=== PATIENT | male | born 1960 | race Caucasian/White ===

== ENCOUNTER 2024-12-27 16:42 | Inpatient (IN) | payer MEDICARE, OTHER, SELFPAY ==
[2024-12-27 16:40] VITALS: BP 111/66; PULSE 78; RESP 17; TEMP 36.7; O2SAT 96
--- OUTSIDE RECORDS SUMMARY | 2024-12-27 16:50 | XMS RPT_ITS | CCD ---
Author Organization [facility] Informat ion Partnership [facility] [employer] [facility] Care Team Providers Care Real Estate Services Coordinator Name Role Phone KELVIN KOHLER Primary Care Unavailable DAKOTA PERSON Attending UnavailKelvin Ortega Primary Care Provider Kelvin Kohler Unavailable Kelvin Kohler Primary Care Provider Kelvin Kohler Primary Care Provider Kelvin Kohler MD Primary Care Provider Kelvin Kohler MD Unavailable Kelvin Kohler MD Primary Care Provider Kelvin Kohler MD Unavailable Kelvin Kohler MD Unavailable Kelvin Kohler MD Primary Care Provider Kelvin Kohler MD Primary Care Provider Evelyn ELLIOTT, Lee Ann Unavailable Unavailable Jenn Callahan MD Unavailable Florian Whitt MD Unavailable Kelvin Kohler MD Unavailable KELVIN KOHLER Primary Care Unavailable PHYSICIANS, [facility] Consulting EDUAR Bueno Attending AARON Martinez Admitting Unavailable PREETI HARRIS Consulting Unavailable KELVIN KOHLER Primary Care Unavailable MAUREEN PARSONS Attending Unavailable MAUREEN PARSONS Referring Unavailable KELVIN KOHLER Primary Care Unavailable MAUREEN PARSONS Attending Unavailable MAUREEN PARSONS Referring Unavailable Unavailable Primary Care Provider UnavailKELVIN Ortega SOILA Attending Unavailable GRJUVE, KELVIN SOILA Primary Care Unavailable GRJUVE, KELVIN CM Primary Care Unavailable WHITT, FLORIAN NOVA Attending Unavailable KENY RAJPUT Attending Unavailable GRJUVE, KELVIN CM Primary Care Unavailable REY BURKETT Attending Unavailable GRUND, KELVIN SOILA Primary Care Unavailable WHITT, FLORIAN NOVA Attending Unavailable GRJUVE, KELVIN SOILA Primary Care Unavailable GRUND, KELVIN SOILA Primary Care Unavailable GRJUVE, KELVIN CM Attending Unavailable GRUND, KELVIN SOILA Primary Care Unavailable GRUND, KELVIN CM Attending Unavailable GRUND, KELVIN SOILA Primary Care Unavailable WHITT, FLORIAN NOVA Attending Unavailable GRUND, KELVIN SOILA Primary Care Unavailable WHITT, FLORIAN NOVA Attending Unavailable GRUND, KELVIN CM Primary Care Unavailable REY BURKETT Attending Unavailable GRUND, KELIVN SOILA Primary Care Unavailable GRUND, KELVIN CM Primary Care Unavailable GRUND, KELVIN CM Primary Care Unavailable TERRENCE SPEARS Attending Unavailable Kelvin Kohler MD Primary Care Provider KELVIN KOHLER Primary Care Unavailable OBKENY PRITCHARD Primary Care Unavailable YENNIJUVE, KELVIN SOILA Primary Care Unavailable JENN CALLAHAN Attending Unavailab le SIEDOAylin, JENN REED Admitting Unavailab JENN Vega Attending Unavailab le VIK, JENN REED Admitting Unavailab le NAI, KELVIN SOILA Primary Care Unavailable OberKeny landeros DO Primary Care Provider [phone] Stentz PA-C, Je Primary Care Provider Stentz PA-C, Je Primary Care Provider Stentz, Je Primary Care Provider [phone] YOUNG MALDONADO Referring Unavailabl e STENTZ, JE Primary Care Unavailable MONICA MG Referring Unavailable STENTZ, JE Primary Care Unavailable REEVESPRICE W Admitting Unavailable REEVESPRICE W Attending Unavailable OBERHAUSERKENY L Primary Care Unavailable OBERHAUSERKENY L Attending Unavailable OBERHAUSER, KENY L Primary Care Unavailable OBERHAUSER, KENY L Primary Care Unavailable REEVESPRICE W Attending Unavailable OBERHAUSERKENY L Primary Care Unavailable REEVESPRICE W Attending Unavailable OBERHAUSKENY PIEDRA L Primary Care Unavailable REEVESPRICE W Attending Unavailable STENTZ, JE Primary Care Unavailable REEVES, PRICE W Attending Unavailable STENTZ, JE Primary Care Unavailable STENTZ, JE Attending Unavailable STENTZ, JE Primary Care Unavailable MONICA MG Attending Unavailable STENTZ, JE Primary Care Unavailable SANTOS GARZON Attending Unavailable MONICA MG Referring Unavailable STENTZ, JE Primary Care Unavailable STENTZ, JE Primary Care Unavailable ELAINE PADRON Referring Unavailable TERRENCE CASTRO Attending Unavailable TERRENCE CASTRO Admitting Unavailable CHARLY KILGORE Consulting Unavailable CHARLY KILGORE Attending Unavailable STENTZ, JE Primary Care Unavailable STENTZ, JE Primary Care Unavailable NICHOLAS DRIVER Consulting Unavailable CHARLY KILGORE Attending Unavailable CHARLY KILGORE Admitting Unavailable Medications Current Medications Medication Drug Class(es) Dates Sig (Normalized) Sig (Original) amLODIPine 2.5 mg / atorvastatin 10 mg oral tablet (14 sources) Dihydropyridine Calcium Channel Shilpa, HMG-CoA Reductase Inhibitor Start: 05-09-2022 amLODIPine-atorva statin (Caduet) 2.5-10 MG tablet 05/09/2022 Active bethanechol chloride 25 mg oral tablet (20 sources) Cholinergic Muscarinic Agonist Start: 06-06-2022 End: 02-22-2024 take 1 tablet by mouth three times daily bethanechol (URECHOLINE) 25 MG tablet Take 1 (one) tablet (25 mg total) by mouth 3 (three) times a day . 90 tablet 11 02/22/2023 Active bethanechol chlo ride (URECHOLINE ORAL) Take by mouth . Active bethanechol chlo ride (URECHOLINE ORAL) Take by mouth . 0 Active cephalexin 500 mg oral capsule (6 sources) Cephalosporin Antibacterial Start: 05-23-2023 End: 05-28-2023 take 1 capsule by mouth twice daily cephALEXin (KEFLEX) 500 MG capsule Take 1 (one) capsule (500 mg total) by mouth 2 (two) times a day for 5 days . 10 capsule 0 05/23/2023 05/28/2023 Active Start: 02-25-2023 End: 03-02-2023 take 1 capsule by mouth twice daily cephALEXin (KEFLEX) 500 MG capsule Take 1 (one) capsule (500 mg total) by mouth 2 (two) times a day for 5 days . 10 capsule 0 02/25/2023 03/02/2023 Active Start: 10-13-2022 End: 10-20-2022 take 1 capsule by mouth twice daily cephALEXin (KEFLEX) 500 MG capsule Take 1 (one) capsule (500 mg total) by mouth 2 (two) times a day for 7 days . 14 capsule 0 10/13/2022 10/20/2022 Active Start: 09-13-2022 End: 09-20-2022 take 1 capsule by mouth three times daily cephALEXin (KEFLEX) 500 MG capsule Take 1 (one) capsule (500 mg total) by mouth 3 (three) times a day for 7 days . 21 capsule 0 09/13/2022 09/20/2022 ciprofloxacin 500 mg oral tablet (12 sources) Quinolone Antimicrobial Start: 05-05-2024 End: 05-08-2024 take 0.5 tablet by mouth twice daily ciprofloxacin (Cipro) 500 mg tablet Indications: Benign prostatic hyperplasia with urinary retention Take 0.5 tablets (250 mg) by mouth 2 times a day for 3 days. 3 tablet 05/05/2024 05/08/2024 Active Start: 03-04-2024 End: 03-07-2024 take 1 tablet by mouth twice daily ciprofloxacin (Cipro) 250 mg tablet Indications: Ureteral stricture Take 1 tablet (250 mg) by mouth 2 times a day for 3 days. 6 tablet 03/04/2024 03/07/2024 Active Start: 11-28-2023 End: 12-01-2023 take 1 tablet by mouth twice daily ciprofloxacin (Cipro) 250 mg tablet Indications: History of bladder stone Take 1 tablet (250 mg) by mouth 2 times a day for 3 days. 6 tablet 11/28/2023 12/01/2023 Active Start: 07-24-2023 End: 07-27-2023 take 1 tablet by mouth twice daily ciprofloxacin (Cipro) 250 mg tablet Indications: Urinary frequency Take 1 tablet (250 mg) by mouth 2 times a day for 3 days. 6 tablet 0 07/24/2023 07/27/2023 Active Start: 10-25-2022 End: 10-28-2022 take 1 tablet by mouth twice daily ciprofloxacin HCl (CIPRO) 500 MG tablet Indications: Urinary tract infection without hematuria, site unspecified Take 1 (one) tablet (500 mg total) by mouth 2 (two) times a day for 3 days . 6 tablet 0 10/25/2022 10/28/2022 Active Start: 04-20-2022 End: 04-23-2022 take 1 tablet by mouth twice daily ciprofloxacin HCl (CIPRO) 500 MG tablet Take 1 (one) tablet (500 mg total) by mouth 2 (two) times a day for 3 days . 6 tablet 0 04/20/2022 04/23/2022 Active Start: 04-11-2022 End: 04-12-2022 take 1 tablet by mouth twice daily ciprofloxacin HCl (CIPRO) 500 MG tablet Indications: Elevated PSA Take 1 (one) tablet (500 mg total) by mouth 2 (two) times a day for 1 day . 2 tablet 0 04/11/2022 04/12/2022 cyclobenzaprine hydrochloride 10 mg oral tablet (17 sources) Muscle Relaxant Start: 10-25-2022 take 1 tablet by mouth three times daily as needed for muscle spasms cyclobenzaprine (FLEXERIL) 10 MG tablet Indications: Painful bladder spasm Take 1 (one) tablet (10 mg total) by mouth 3 (three) times a day as needed for muscle spasms . 30 tablet 3 10/25/2022 Active imipramine hydrochloride 10 mg oral tablet (11 sources) Tricyclic Antidepressant Start: 03-28-2023 End: 03-27-2024 take 1 tablet by mouth once daily imipramine (TOFRANIL) 10 MG tablet Indications: Urinary urgency Take 1 (one) tablet (10 mg total) by mouth nightly . 30 tablet 11 03/28/2023 Active lidocaine hydrochloride 0.02 mg/mg topical gel (20 sources) Antiarrhythmic, Amide Local Anesthetic Start: 08-28-2022 End: 08-28-2023 lidocaine (XYLOCAINE) 2 % jelly Apply topically as needed . 30 mL 2 08/28/2022 08/28/2023 Active Multiple Vitamin (Multi-Vitamin) tablet (14 sources) take 1 tablet by mouth once daily Multiple Vitamin (Multi-Vitamin) tablet Take 1 tablet by mouth daily. Active multivitamin per tablet (11 sources) take 1 tablet by mouth once daily multivitamin per tablet Take 1 (one) tablet by mouth daily . Active take 1 tablet by mouth once noah y multivitamin per tablet Take 1 (one) tablet by mouth daily . 0 Active multivitamin tablet (14 sources) take 1 tablet by meera th once daily multivitamin tablet Take 1 tablet by mouth once daily. Active take 1 tablet by mouth once noah y multivitamin tablet Take 1 tablet by mouth once daily. 0 Active naloxone hydrochloride 40 mg/ml nasal spray (4 sources) Opioid Antagonist Start: 12-06-2024 End: 12-08-2024 naloxone (Narcan) 4 MG/0.1ML nasal spray Administer 1 spray (4 mg) into affected nostril(s) Once for 1 dose. May repeat every 2-3 minutes if needed, alternating nostrils, until medical assistance becomes available. 2 each 12/06/2024 12/08/2024 Active Start: 12-02-2024 End: 12-07-2024 2 ml ondansetron 2 mg/ml injection (2 sources) Serotonin-3 Receptor Antagonist Start: 05-05-2024 End: 05-05-2024 4 mg, intravenous, Once as needed, nausea/vomiting, second line, Starting on Sat05/05/24 at 1158, For 1 dose, Recovery (only), When administering via IV Push, administer over 3-5 minutes. oxyCODONE hydrochloride 10 mg oral tablet (20 sources) Opioid Agonist Start: 12-06-2024 End: 12-13-2024 take 1 tablet by mouth every six hours as needed for pain oxyCODONE (Roxicodone) 10 MG immediate release tablet Indications: Spondylolisthesis of lumbar region Take 1 tablet (10 mg) by mouth every 6 hours as needed for severe pain (7-10) for up to 7 days. 28 tablet 12/06/2024 12/13/2024 Active Start: 12-02-2024 End: 12-07-2024 take 1 tablet by mouth every four hours as needed for pain oxyCODONE (Roxicodone) immediate release tablet 5 mg Start: 05-05-2024 take 1 tablet by meera th every four hours as needed 5 mg, oral, Every 4 hours PRN, pain mild (1-3), first line, Starting on Sat05/05/24 at 1158, Recovery (only), When able to take oral medications., If ordered PRN for pain, nurse is permitted to administer this medication for higher pain scores based on patient preference? Yes Start: 10-04-2022 take 1 tablet by meera th every six hours as needed for pain oxyCODONE (ROXICODONE) 5 MG immediate release tablet Indications: Adenocarcinoma of prostate (HCC) Take 1 (one) tablet (5 mg total) by mouth every 6 (six) hours as needed for pain (cancer related pain) . 40 tablet 10/04/2022 Active oxygen (O2) therapy (1 source) Start: 05-05-2024 inhalation, Co ntinuous PRN - O2/gases, other, Starting on Sat05/05/24 at 1158, Recovery (only), Device: Simple Face Mask, Rate in Liters per minute: 6 LPM, Keep O2 Sat Above: 92% potassium citrate 15 meq extended release oral tablet (20 sources) Start: 08-05-2023 End: 08-27-2024 potassium citrate CR (Urocit-K-15) 15 MEQ (1620 MG) ER tablet Take 15 mEq by mouth daily. 08/16/2023 Active take 1 tablet by mouth twice dayan ly potassium citrate (UROCIT-K) 15 mEq TbER Take 1 (one) tablet (15 mEq total) by mouth 2 (two) times a day . Active predniSONE 20 mg oral tablet (3 sources) Start: 06-13-2022 End: 06-18-2022 take 2 tablets by mouth once daily predniSONE (DELTASONE) 20 MG tablet Indications: Rectal or anal pain Take 2 (two) tablets (40 mg total) by mouth daily for 5 days . 10 tablet 0 06/13/2022 06/18/2022 Active Start: 09-14-2018 End: 03-05-2019 predniSONE (DELTASONE) 20 MG tablet Take 3 tabs for 3 days, 2 tabs for 3 days, 1 tab for 3 days. . 18 tablet 0 09/14/2018 03/05/2019 Discontinued (Therapy completed) pregabalin 25 mg oral capsule (1 source) Start: 06-18-2023 End: 07-05-2023 pregabalin (LYRICA) 25 MG capsule Indications: Neuropathic pain of perineum , Penile pain 1 capsule twice daily for 3 days , then 2 capsules twice daily (Days supply per fill: 30) . 120 capsule 1 06/18/2023 07/05/2023 Discontinued (Prescriber Discontinued) promethazine (Phenergan) 6.25 mg in sodium chloride 0.9% 50 mL IV (1 source) Start: 05-05-2024 6.25 mg, intravenous, Administer over 15 Minutes, Once as needed, Nausea/vomiting first line, Starting on Sat05/05/24 at 1158, For 1 dose, Recovery (only) tiZANidine 4 mg oral tablet (4 sources) Central alpha-2 Adrenergic Agonist Start: 12-02-2024 End: 12-16-2024 take 1 tablet by mouth every eight hours as needed tiZANidine (Zanaflex) 4 MG tablet Take 1 tablet (4 mg) by mouth every 8 hours as needed for muscle spasms for up to 10 days. 30 tablet 12/06/2024 12/16/2024 Active traMADol hydrochloride 50 mg oral tablet (20 sources) Opioid Agonist Start: 09-23-2022 traMADoL (ULTR AM) 50 mg tablet 09/23/2022 Active Start: 06-13-2022 End: 07-03-2022 take 1 tablet by mouth every four hours as needed for pain traMADoL (ULTRAM) 50 mg tablet Indications: Rectal or anal pain Take 1 (one) tablet (50 mg total) by mouth every 4 (four) hours as needed for pain (Days supply per fill: 10) . 40 tablet 1 06/13/2022 07/03/2022 Active Start: 04-20-2022 End: 04-23-2022 traMADoL (ULTRAM) 50 mg tabl et Indications: Elevated PSA , Benign prostatic hyperplasia with urinary retention Take 1 (one) tablet (50 mg total) by mouth every 4 (four) hours as needed for pain (Days supply per fill: 3) . 12 tablet 0 04/20/2022 04/23/2022 Active traZODone hydrochloride 50 mg oral tablet (20 sources) Serotonin Reuptake Inhibitor Start: 02-15-2023 End: 02-15-2023 take 0.5 tablet by mouth once daily as needed traZODone (DESYREL) 50 MG tablet Take 0.5 (one-half) tablet (25 mg total) by mouth nightly as needed . 30 tablet 5 02/15/2023 Active Start: 08-20-2022 End: 10-25-2022 take 0.5 tablet by mouth once daily as needed for sleep traZODone (DESYREL) 100 MG tablet Indications: Sleep disorder Take 0.5 (one-half) tablet (50 mg total) by mouth nightly as needed for sleep . 30 tablet 5 08/20/2022 10/25/2022 Discontinued (Ineffective) vibegron (GEMTESA) 75 mg Tab (9 sources) Start: 09-21-2022 End: 10-19-2022 take 1 tablet by mouth once daily vibegron (GEMTESA) 75 mg Tab Indications: Bladder spasms Take 1 (one) tablet (75 mg total) by mouth daily . 28 tablet 0 09/21/2022 10/19/2022 Active zolpidem tartrate 6.25 mg extended release oral tablet (6 sources) gamma-Aminobuty anabel Acid-ergic Agonist Start: 05-01-2023 End: 10-28-2023 take 1 tablet by mouth once daily as needed for sleep zolpidem (AMBIEN CR) 6.25 MG ER tablet Indications: Insomnia, unspecified type Take 1 (one) tablet (6.25 mg total) by mouth nightly as needed for sleep (Days supply per fill: 30) . 30 tablet 5 05/01/2023 10/28/2023 Active Completed/Discontinued Medications Medication Drug Class(es) Dates Sig (Normalized) Sig (Original) acetaminophen 500 mg oral tablet (20 sources) Start: 12-02-2024 End: 12-07-2024 take 1 tablet by mouth every eight hours 1,000 mg, Oral, Every 8 hours, First dose on Sat12/02/24 at 1715, Maximum dose of acetaminophen is 4000 mg from all sources in 24 hours. Start: 12-02-2024 End: 12-02-2024 take 1000 mg by mouth once, then take 4000 mg by mouth every twenty-four hours 1,000 mg, Oral, Once, On Sat12/02/24 at 0900, For 1 dose, Preprocedure, Maximum dose of acetaminophen is 4000 mg from all sources in 24 hours. Do not administer if patient has taken tylenol Start: 05-05-2024 End: 05-05-2024 take 975 mg by mouth once as needed for pain 975 mg, oral, Once, On Sat05/05/24 at 1015, For 1 dose, Preprocedure, Administer with small amount of water preoperatively., If ordered PRN for pain, nurse is permitted to administer this medication for higher pain scores based on patient preference? Yes Start: 04-21-2022 End: 04-23-2022 take 1 tablet by mouth every six hours as needed for pain acetaminophen (TYLENOL) tablet 650 mg take 2 tablets by mo uth every six hours as needed acetaminophen (Tylenol) 325 MG tablet Take 650 mg by mouth every 6 hours as needed. Active acetaminophen 325 mg / HYDROcodone bitartrate 5 mg oral tablet (10 sources) Opioid Agonist Start: 05-05-2024 End: 09-11-2024 take 1 tablet by mouth every six hours for pain HYDROcodone-acetaminophen ([place]) 5-325 mg tablet Indications: Benign prostatic hyperplasia with urinary retention Take 1 tablet by mouth every 6 hours if needed for severe pain (7 - 10). 20 tablet 05/05/2024 09/11/2024 Discontinued (Med List Cleanup) Start: 07-26-2023 End: 02-27-2024 take 1 tablet by mouth every six hours for pain HYDROcodone-acetaminophen ([place]) 5-325 mg tablet Indications: Stricture of male urethra, unspecified stricture type Take 1 tablet by mouth every 6 hours if needed for severe pain (7 - 10). 20 tablet 07/26/2023 02/27/2024 Discontinued (Therapy completed) Start: 04-20-2022 End: 04-20-2022 take 1 tablet by mouth every twenty-four hours as needed 1 tablet, Oral, Once as needed, Pain, Starting on Sat04/20/22 at 1623, For 1 dose, PACU (only) While in PACU when tolerating orals. Use oral route first, if tolerated.d. albuterol 0.833 mg/ml / ipratropium bromide 0.167 mg/ml inhalation solution (2 sources) Anticholinergic, beta2-Adrenergic Agonist Start: 04-21-2022 End: 04-23-2022 take 3 mL by inhalation every four hours as needed ipratropium-albuteroL (DUO-NEB) 0.5-2.5 mg/3 ml nebulizer solution 3 mL Start: 04-20-2022 End: 04-20-2022 take 3 mL by inhalation every six hours as needed for wheezing 3 mL, Inhalation, Every 6 hours PRN (RT), wheezing, shortness of breath, Starting on Sat04/20/22 at 1623, PACU (only) ALPRAZolam 0.25 mg disintegrating oral tablet (2 sources) Benzodiazepine Start: 12-02-2024 End: 12-02-2024 0.25 mg, Oral, PRN, anxiety, Starting on Sat12/02/24 at 0854, For 1 dose, Preprocedure amLODIPine 5 mg oral tablet (20 sources) Dihydropyridine Calcium Channel Shilpa Start: 12-03-2024 End: 12-07-2024 take 2.5 mg by mouth once daily 2.5 mg, Oral, Daily, First dose on Cherie 12/03/24 at 0800, Phase II/On Unit Start: 06-07-2022 End: 02-21-2025 take 1 tablet by mouth once daily amLODIPine (Norvasc) 2.5 MG tablet Take 2.5 mg by mouth daily. 06/07/2023 02/21/2025 Active Start: 04-22-2022 End: 06-07-2022 take 1 tablet by mouth once daily amLODIPine (NORVASC) 5 MG tablet Take 1 (one) tablet (5 mg total) by mouth daily Start: 04/24/22. 30 tablet 0 04/24/2022 06/07/2022 Discontinued (Reorder (Suppress CancelRx Message to Pharmacy)) bisacodyl 10 mg rectal suppository (2 sources) Stimulant Laxative Start: 12-05-2024 End: 12-07-2024 take 10 mg rectal route once daily 10 mg, Rectal, Daily, First dose on 12/05/24 at 1545 calcium chloride 0.0014 meq/ml / potassium chloride 0.004 meq/ml / sodium chloride 0.103 meq/ml / sodium lactate 0.028 meq/ml injectable solution (6 sources) Start: 12-02-2024 End: 12-07-2024 take 50 mL intravenously every hour 50 mL/hr, IntraVENous, Continuous, Starting on Sat12/02/24 at 0900, Preprocedure, Upon admission to sameday - please start iv if patient does not have iv access. Use 500ml NS for patients on dialysis. Start: 05-05-2024 End: 05-06-2024 take 50 mL intravenously every hour 50 mL/hr, intravenous, Continuous, Starting on Sat05/05/24 at 1215, For 1 day, Recovery (only) Start: 04-20-2022 End: 04-20-2022 lactated Ringers infusion ceFAZolin (Ancef) 2,000 mg in sodium chloride 0.9 % 100 mL IVPB (2 sources) Start: 12-02-2024 End: 12-03-2024 take 2000 mg intravenously every eight hours 2,000 mg, IntraVENous, at 200 mL/hr, Administer over 30 Minutes, Every 8 hours, First dose on Sat12/02/24 at 2000, For 2 doses, Phase II/On Unit, Patients /= 120 k mg Mini-Bag Plus bag, Suspected Indication (Select all that apply): Surgical Prophylaxis 1 ml dexamethasone phosphate 4 mg/ml injection (3 sources) Corticosteroid Start: 12-03-2024 End: 12-04-2024 take 4 mg intravenously every eight hours 4 mg, IntraVENous, Every 8 hours, First dose on Sat12/03/24 at 0215, For 2 days Start: 05-05-2024 End: 05-05-2024 10 mg, intravenous, Once, On Sat05/05/24 at 1015, For 1 dose, Preprocedure 2 ml famotidine 10 mg/ml injection (1 source) Histamine-2 Receptor Antagonist Start: 05-05-2024 End: 05-05-2024 20 mg, intravenous, Administer over 2 Minutes, Once, On Sat05/05/24 at 1015, For 1 dose, Preprocedure 4 ml furosemide 10 mg/ml injection (1 source) Loop Diuretic Start: 04-20-2022 End: 04-20-2022 furosemide (LASIX) injection 40 mg gabapentin 300 mg oral capsule (20 sources) Anti-epileptic Agent Start: 11-30-2024 End: 12-07-2024 take 300 mg by mouth three times daily 300 mg, Oral, 3 times daily, First dose on Sat12/02/24 at 1600, Phase II/On Unit Start: 10-02-2024 End: 11-28-2024 take 1 capsule by mouth three times daily gabapentin (Neurontin) 300 mg capsule Take 1 capsule (300 mg) by mouth 3 times a day. 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 90 capsule 07/05/2023 Active Start: 03-05-2019 End: 07-31-2021 gabapentin (NEURONTIN) 100 M G capsule Indications: Foot pain, bilateral 1-3 capsules up to 3 times per day . . 90 capsule 03/05/2019 07/31/2021 Discontinued (Therapy completed) 1 ml hydrALAZINE hydrochloride 20 mg/ml injection (2 sources) Arteriolar Vasodilator Start: 04-20-2022 End: 04-23-2022 take 10 mg intravenously every six hours as needed hydrALAZINE (APRESOLINE) injection 10 mg Start: 04-20-2022 End: 04-20-2022 5 mg, Intravenous, Every 15 min PRN, SBP greater than 160 or DBP greater than 90, Starting on Sat04/20/22 at 1648, For 4 doses, PACU (only) Do not give more than 20 mg total. Hold for HR greater than 100. Administer if labetalol or metoprolol ineffective at maximum dose or not ordered. 1 ml HYDROmorphone hydrochloride 1 mg/ml cartridge (5 sources) Opioid Agonist Start: 12-02-2024 End: 12-02-2024 0.5 mg, IntraVENous, Every 5 min PRN, severe pain (7-10), Starting on Sat12/02/24 at 1348, For 4 doses, Recovery (only), Phase I and Phase II- Initial therapy for severe pain (7-10). Restricted to a 90 minute time frame starting when the patient can verbally state their pain score. If after 2 doses the pain score does not decrease by more than one point, then call the provider. If oral meds are utilized, do not return to initial therapy medications. Start: 05-05-2024 0.5 mg, intrav enous, Every 5 min PRN, pain severe (7-10), first line, Starting on Sat05/05/24 at 1158, Recovery (only), Max total of 4 mg regardless of dose. Start: 05-05-2024 0.5 mg, intrav enous, Every 5 min PRN, pain moderate (4-6), first line, Starting on Sat05/05/24 at 1158, Recovery (only), Max total of 4 mg regardless of dose. Start: 04-20-2022 End: 04-20-2022 HYDROmorphone (DILAUDID) inj ection 0.5 mg ibuprofen 600 mg oral tablet (7 sources) Nonsteroidal Anti-inflammatory Drug End: 02-27-2024 take 1 tablet by mouth every six hours as needed ibuprofen 600 mg tablet Take 1 tablet (600 mg) by mouth every 6 hours if needed for mild pain (1 - 3). 02/27/2024 Discontinued (Therapy completed) End: 06-07-2022 take 1 tablet by mouth every six hours as needed for pain ibuprofen (ADVIL,MOTRIN) 200 MG tablet Take 1 (one) tablet (200 mg total) by mouth every 6 (six) hours as needed for pain . 0 06/07/2022 Discontinued (Prescriber Discontinued) insulin lispro 100 unt/ml injectable solution (1 source) Insulin Analog Start: 04-21-2022 End: 04-21-2022 insulin lispro (AdmeLOG,HumaLOG) injection 0-30 Units 4 ml labetalol hydrochloride 5 mg/ml cartridge (2 sources) beta-Adrener gic Shilpa Start: 04-20-2022 End: 04-23-2022 take 20 mg intravenously every four hours as needed labetaloL (NORMODYNE) injection 20 mg Start: 04-20-2022 End: 04-20-2022 5 mg, Intravenous, Every 5 m in PRN, SBP greater than 160 or DBP greater than 90, Starting on Sat04/20/22 at 1623, PACU (only) Do not give more than 20 mg total. Hold for HR less than 50. 1.5 ml leuprolide acetate 30 mg/ml prefilled syringe (6 sources) Gonadotropin Releasing Hormone Receptor Agonist Start: 03-11-2024 End: 03-11-2024 leuprolide (6-month) (Lupron Depot) injection 45 mg Start: 03-11-2024 End: 03-11-2024 inject 1 dose by intramuscular injection every two hours 45 mg, intramuscular, Once, On Sat03/11/24 at 1530, For 1 dose, Administer as a single injection into the gluteal area, anterior thigh, or deltoid. Give within 2 hours of preparation. Hazardous Drug - Double Nitrile Glove, Gown. Administer as a single intraMUSCULAR injection into the gluteal area, anterior thigh, or deltoid. Injection site should be alternated. Administer within 2 hours of preparation. Start: 08-22-2023 End: 08-22-2023 leuprolide (6-month) (Lupron Depot) injection 45 mg Start: 08-22-2023 End: 08-22-2023 leuprolide (6-month) (Lupron Depot) injection 45 mg Start: 07-31-2022 End: 07-31-2022 leuprolide acetate (6 month) (LUPRON) IM injection 45 mg Start: 07-31-2022 End: 07-31-2022 leuprolide acetate (6 month) (LUPRON) IM injection 45 mg magnesium hydroxide 80 mg/ml oral suspension (2 sources) Start: 12-02-2024 End: 12-07-2024 take 1 dose by mouth every twenty-four hours for constipation 30 mL, Oral, 2 times daily, First dose on Sat12/02/24 at 1600, Phase II/On Unit, 1st line for treatment of constipation - give scheduled if no bowel movement in past 24 hours 5 ml midazolam 1 mg/ml injection (1 source) Benzodiazepine Start: 05-05-2024 End: 05-05-2024 2 mg, intravenous, Once, On Sat05/05/24 at 1015, For 1 dose, Preprocedure mirtazapine 15 mg oral tablet (7 sources) Start: 10-25-2022 End: 03-28-2023 take 1 tablet by mouth once daily mirtazapine (REMERON) 15 MG tablet Indications: Sleep disorder Take 1 (one) tablet (15 mg total) by mouth nightly . 30 tablet 0 10/25/2022 03/28/2023 Discontinued (Patient Discharge) naloxone (NARCAN) injection 0.1 mg (1 source) Start: 04-20-2022 End: 04-23-2022 naloxone (NARCAN) injection 0.1 mg ondansetron ODT (Zofran-ODT) disintegrating tablet 4 mg (2 sources) Start: 12-02-2024 End: 12-07-2024 take 1 tablet by mouth every eight hours as needed for nausea and vomiting ondansetron ODT (Zofran-ODT) disintegrating tablet 4 mg oxybutynin chloride 5 mg oral tablet (20 sources) Cholinergic Muscarinic Antagonist Start: 07-26-2023 End: 07-25-2024 take 1 tablet by mouth twice daily oxybutynin (Ditropan) 5 mg tablet Indications: Stricture of male urethra, unspecified stricture type Take 1 tablet (5 mg) by mouth 2 times a day. 60 tablet 11 07/26/2023 02/27/2024 Discontinued (Therapy completed) Start: 09-19-2022 End: 09-19-2023 take 1 tablet by mouth once daily oxybutynin (DITROPAN-XL) 10 MG 24 hr tablet Indications: Bladder spasms Take 1 (one) tablet (10 mg total) by mouth daily . 30 tablet 11 09/19/2022 03/28/2023 Discontinued (Side effects) phenazopyridine hydrochloride 200 mg oral tablet (7 sources) Start: 05-05-2024 End: 09-11-2024 take 1 tablet by mouth three times daily as needed for muscle spasms phenazopyridine (Pyridium) 200 mg tablet Indications: Benign prostatic hyperplasia with urinary retention Take 1 tablet (200 mg) by mouth 3 times a day as needed for bladder spasms. 30 tablet 05/05/2024 09/11/2024 Discontinued (Med List Cleanup) Start: 05-05-2024 End: 05-05-2024 take 200 mg by mouth once 200 mg, oral, Once, On Sat07/05/23 at 1315, For 1 dose, Recovery & On Unit, May discolor urine (orange). 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 30 tablet 0 07/26/2023 08/05/2023 Discontinued (Med List Cleanup) microencapsulated potassium chloride 10 meq extended release oral tablet (3 sources) Start: 12-02-2024 End: 12-07-2024 15 mEq, Oral, Daily, First dose on Sat12/02/24 at 1600, Phase II/On Unit, Best given with food and plenty of water to minimize gastric irritation. Do not crush or chew. Start: 04-22-2022 End: 04-22-2022 take 1 tablet by mouth every four hours potassium chloride SA (K-DUR,KLOR-CON) CR tablet 20 mEq 5 ml sodium chloride 9 mg/ml injection (7 sources) Start: 12-02-2024 End: 12-07-2024 10 mL, IntraVENous, Every 12 hours scheduled (2 times per day), First dose on Sat12/02/24 at 2100, Phase II/On Unit Start: 12-02-2024 End: 12-07-2024 Start: 12-02-2024 End: 12-07-2024 Start: 04-21-2022 End: 04-23-2022 sodium chloride 0.45% (HALF SALINE) infusion tamsulosin hydrochloride 0.4 mg oral capsule (20 sources) alpha-Adrenergic Shilpa Start: 04-11-2022 End: 08-27-2025 take 0.4 mg by mouth once daily 0.4 mg, Oral, Daily, First dose on Sat12/03/24 at 0800, Phase II/On Unit, Do not crush, chew, or split. 1 ml triamcinolone acetonide 40 mg/ml injection (1 source) Corticosteroid Start: 07-31-2021 End: 07-31-2021 triamcinolone acetonide (KENALOG-40) injection 40 mg Problems Active Problems Problem Classification Problem Date Documented Da te Episodic/Chronic Abdominal pain (1 source) Peripheral neuropathic pain; Translations: [Pelvic and perineal pain] 07-05-2023 Episodic Anal and rectal conditions (1 source) Anorectal pain; Translations: [Other specified diseases of anus and rectum] Episodic Aortic and peripheral arterial embolism or thrombosis (2 sources) Embolism and thrombosis of iliac artery; 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)] Onset: 12-08-2024 Chronic Cancer of prostate (20 sources) Adenocarcinoma of prostate; Translations: [Malignant neoplasm of prostate] Onset: 04-25-2022 Chronic Cardiac dysrhythmias (4 sources) Atrial premature complex ; Translations: [Atrial premature depolarization] Onset: 12-01-2024 12-01-2024 Chronic Essential hypertension (20 sources) Essential hypertension; Translations: [Essential (primary) hypertension] Onset: 08-07-2022 Chronic Hyperplasia of prostate (20 sources) Benign prostatic hypertrophy with outflow obstruction; Translations: [Benign prostatic hyperplasia with lower urinary tract symptoms] Onset: 04-11-2022 Chronic Malignant neoplasm without specification of site (4 sources) Malignant neoplastic disease; Translations: [Malignant (primary) neoplasm, unspecified] 12-02-2024 Chronic Other acquired deformities (5 sources) Spondylolysis; Translations: [Spondylolysis, lumbar region] 10-29-2024 Episodic Other acquired deformities (6 sources) Spondylolysis, lumbar region; Translations: [Spondylolysis, lumbar region] Onset: 10-29-2024 Episodic Other acquired deformities (8 sources) Lumbar spondylolisthesis; Translations: [Spondylolisthesis, lumbar region] Onset: 12-02-2024 12-07-2024 Episodic Other acquired deformities (2 sources) Spondylolisthesis, lumbar region; Translations: [Spondylolisthesis, lumbar region] Onset: 12-02-2024 Episodic Other connective tissue disease (2 sources) Other enthesopathies, not elsewhere classified; Translations: [Other enthesopathies, not elsewhere classified] Onset: 09-14-2018 Episodic Other connective tissue disease (1 source) Lateral epicondylitis of right humerus; Translations: [Lateral epicondylitis, right elbow] Episodic Other connective tissue disease (1 source) Neuropathic pain due to radiation; Translations: [Neuralgia and neuritis, unspecified] 07-05-2023 Episodic Other connective tissue disease (2 sources) Pain in right leg; Translations: [Pain in right leg] Onset: 12-08-2024 Episodic Other connective tissue disease (3 sources) Pain in both feet; Translations: [Foot pain, bilateral] Onset: 03-05-2019 03-05-2019 Other diseases of bladder and urethra (2 sources) Spasm of bladder; Translations: [Other specified disorders of bladder] 09-19-2022 Chronic Other diseases of bladder and urethra (2 sources) Other specified disorders of bladder; Translations: [Other specified disorders of bladder] Onset: 09-21-2022 Chronic Other diseases of bladder and urethra (2 sources) Urethral stricture; Translations: [Unspecified urethral stricture, male, unspecified site] Episodic Other diseases of kidney and ureters (2 sources) Stricture of ureter; Translations: [Crossing vessel and stricture of ureter without hydronephrosis] 03-04-2024 Episodic Other gastrointestinal disorders (1 source) Stool DNA-based colorectal cancer screening positive; Translations: [Other fecal abnormalities] 09-11-2024 Episodic Other gastrointestinal disorders (2 sources) Other fecal abnormalities; Translations: [Other fecal abnormalities] Onset: 09-11-2024 Episodic Other male genital disorders (1 source) Pain in penis; Translations: [Other specified disorders of penis] 07-05-2023 Chronic Other non-epithelial cancer of skin (20 sources) Basal cell carcinoma of face; Translations: [Basal cell carcinoma of skin of other parts of face] Onset: 09-11-2024 09-11-2024 Episodic Peripheral and visceral atherosclerosis (2 sources) Atherosclerosis of aorta; Translations: [Atherosclerosis of aorta (HCC)] Onset: 12-08-2024 Chronic Residual codes; unclassified (2 sources) Sleep disorder; Translations: [Sleep disorder, unspecified] Episodic Residual codes; unclassified (2 sources) Insomnia, unspecified; Translations: [Insomnia, unspecified] Onset: 05-01-2023 Episodic Spondylosis; intervertebral disc disorders; other back problems (2 sources) Degeneration of lumbar intervertebral disc; Translations: [Other intervertebral disc degeneration, 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] 10-15-2024 Chronic Spondylosis; intervertebral disc disorders; other back problems (4 sources) Lumbar radiculopathy; Translations: [Radiculopathy, lumbar region] Onset: 10-15-2024 10-15-2024 Episodic Substance-related disorders (20 sources) Nicotine dependence; Translations: [Nicotine dependence, unspecified, uncomplicated] Onset: 04-19-2022 04-19-2022 Chronic Unclassified (1 source) Patient encounter status; Translations: [Preventive measure] Unclassified (1 source) Other intervertebral disc degeneration, 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; Translations: [Other intervertebral disc degeneration, 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] Onset: 10-15-2024 Unclassified (2 sources) Pressure-induced deep tissue damage of sacral region; Translations: [Pressure-induced deep tissue damage of sacral region] Onset: 12-08-2024 Urinary tract infections (9 sources) Urinary tract infectious disease; Translations: [Urinary tract infection, site not specified] Episodic Past or Other Problems Problem Classification Problem Date Documented Date Episodic/Chronic Acute and unspecified renal failure (20 sources) Acute injury of kidney; Translations: [Acute kidney failure, unspecified] Onset: 04-19-2022 04-19-2022 Episodic Calculus of urinary tract (20 sources) Urinary bladder stone; Translations: [Calculus in bladder] Onset: 08-05-2023 08-05-2023 Episodic Complications of surgical procedures or medical care (8 sources) Stricture of male urethra following procedure; Translations: [Postprocedural urethral stricture, male, unspecified] Onset: 03-06-2024 08-05-2023 Episodic Genitourinary symptoms and ill-defined conditions (20 sources) Retention of urine; Translations: [Retention of urine, unspecified] Onset: 04-11-2022 Episodic Other circulatory disease (1 source) Abnormal breath sounds; Translations: [Abnormal breath sounds] Episodic Other circulatory disease (20 sources) Elevated blood-pressure reading without diagnosis of hypertension; Translations: [Elevated blood-pressure reading, without diagnosis of hypertension] Onset: 04-19-2022 04-19-2022 Episodic Other connective tissue disease (1 source) Tendinitis of hand; Translations: [Tendinitis of thumb] Episodic Other connective tissue disease (20 sources) Pain in both feet; Translations: [Pain in right foot] Onset: 03-05-2019 03-05-2019 Episodic Other connective tissue disease (20 sources) Disease suspected; Translations: [Other symptoms and signs involving the nervous system] Onset: 04-19-2022 04-19-2022 Episodic Other connective tissue disease (14 sources) Suspected respiratory disease; Translations: [Other symptoms and signs involving the nervous system] Onset: 04-19-2022 10-28-2024 Episodic Other diseases of bladder and urethra (20 sources) Male urethral stricture; Translations: [Unspecified urethral stricture, male, unspecified site] Onset: 04-25-2022 04-25-2022 Episodic Other diseases of bladder and urethra (2 sources) Unspecified urethral stricture, male, unspecified site; Translations: [Unspecified urethral stricture, male, unspecified site] Onset: 04-20-2024 Episodic Other diseases of bladder and urethra (2 sources) Other urethral stricture, male, unspecified site; Translations: [Other urethral stricture, male, unspecified site] Onset: 03-06-2024 Episodic Other diseases of kidney and ureters (20 sources) Renal impairment; Translations: [Disorder of kidney and ureter, unspecified] Onset: 04-25-2022 Episodic Other diseases of kidney and ureters (2 sources) Crossing vessel and stricture of ureter without hydronephrosis; Translations: [Crossing vessel and stricture of ureter without hydronephrosis] Onset: 03-04-2024 Episodic Other lower respiratory disease (20 sources) Hypoxia; Translations: [Hypoxemia] Onset: 04-20-2022 Episodic Other screening for suspected conditions (not mental disorders or infectious disease) (20 sources) Patient encounter status; Translations: [Encounter for screening for malignant neoplasm of prostate] Onset: 04-11-2022 Episodic Other skin disorders (1 source) Skin lesion; Translations: [Disorder of the skin and subcutaneous tissue, unspecified] 02-27-2024 Episodic Other skin disorders (2 sources) Disorder of the skin and subcutaneous tissue, unspecified; Translations: [Disorder of the skin and subcutaneous tissue, unspecified] Onset: 02-27-2024 Episodic Residual codes; unclassified (20 sources) Clubbing of nail; Translations: [Clubbing of fingers] Onset: 03-05-2019 03-05-2019 Episodic Residual codes; unclassified (20 sources) Insomnia; Translations: [Insomnia, unspecified] Onset: 05-01-2023 05-01-2023 Episodic Residual codes; unclassified (2 sources) Sleep disorder, unspecified; Translations: [Sleep disorder, unspecified] Onset: 10-25-2022 Episodic Unclassified (17 sources) Onset: 07-24-2023 Resolved: 12-01-2024 07-24-2023 Unclassified (1 source) Other intervertebral disc degeneration, 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; Translations: [Other intervertebral disc degeneration, 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] Onset: 10-15-2024 Results Test Name Value Interpretation Reference Range Facility 30on 12-23-2024 30 Normal [facility] [id number] 12-23-2024 [id number] Normal [facility] [id number] Normal [facility] [id number] Updates placed to [facility] via Careport per TCC request. Await review and response regarding ability to accept. TCC notified. Electronically signed by GAVIN Rocha Normal [facility] BASIC METABOLIC PANELon Anion gap [Moles/Vol] 6 mmol/L Normal 3-13 [facility] Comment on above: Performed By: #### L [id number], [id number] ####Sales Promotion Manager: MICKIE ASHER ([phone])[facility] ([facility])[address] [place] [address] Calcium [Mass/Vol] 8.2 mg/dL Low 8.8-10.0 [facility] Comment on above: Performed By: #### L [id number], [id number] ####Sales Promotion Manager: MICKIE ASHER ([phone])[facility] ([facility])[address] [place] [address] [place] Chloride [Moles/Vol] 110 mmol/L High 98-107 [facility] Comment on above: Performed By: #### L AB15, [id number] ####Sales Promotion Manager: MICKIE ASHER ([phone])[facility] ([facility])[address] [place] [address] [place] CO2 [Moles/Vol] 22 mmol/L Low 23-31 [facility] Comment on above: Performed By: #### L AB15, [id number] ####Sales Promotion Manager: MICKIE ASHER ([phone])[facility] ([facility])[address] [place] [address] Creatinine [Mass/Vol] 0.67 mg/dL Low 0.72-1.25 [facility] Comment on above: Performed By: #### L AB15, [id number] ####Sales Promotion Manager: MICKIE ASHER ([phone])[facility])[address] [place] [address] GLOMERULAR FILTRATION RATE ML/MIN/1.73 SQ M.PREDICTED >90.0 Normal >60.0 [facility] Comment on above: Result Comment: Calc ulation based on the Chronic Kidney Disease Epidemiology Collaboration (CKD-EPI) equation refit without adjustment for race Performed By: #### L AB15, [id number] ####Sales Promotion Manager: MICKIE ASHER ([phone])[facility])[address] [place] [address] Glucose [Mass/Vol] 91 mg/dL Normal 82-115 [facility] Comment on above: Performed By: #### L AB15, [id number] ####Sales Promotion Manager: MICKIE ASHER ([phone])[facility])[address] [place] [address] Potassium [Moles/Vol] 3.5 mmol/L Normal 3.5-5.1 [facility] Comment on above: Result Comment: [facility] potassium values may be up to 0.5 mmol/L lower than serum values. Performed By: #### L AB15, [id number] ####Sales Promotion Manager: MICKIE ASHER ([phone])[facility])[address] [place] [address] Sodium [Moles/Vol] 138 mmol/L Normal 136-145 [facility] Comment on above: Performed By: #### L AB15, [id number] ####Sales Promotion Manager: MICKIE ASHER ([phone])[facility])[address] [place] [address] [place] Urea nitrogen [Mass/Vol] 8 mg/dL Low 9-23 [facility] Comment on above: Performed By: #### L AB15, [id number] ####Sales Promotion Manager: MICKIE ASHER ([phone])[facility])[address] [place] [address] BLOOD TYPE AND SCREEN GELon 12-23-2024 ABO GROUPING A Normal [facility] Comment on above: Performed By: #### L [id number] ####Sales Promotion Manager: MICKIE ASHER ([phone])[facility] ([facility])[address] [place] [address] RH TYPE IN BLOOD Positive Normal [facility] Comment on above: Performed By: #### L [id number] ####Sales Promotion Manager: MICKIE ASHER ([phone])[facility] ([facility])[address] [place] [address] CBC WITH AUTO DIFFERENTIALon 12-23-2024 Basophils (Bld) [#/Vol] 0.1 10*3/uL Normal 0.0-0.2 [facility] Comment on above: Performed By: #### L [id number] ####Sales Promotion Manager: MICKIE ASHER ([phone])[facility] ([facility])[address] [place] [address] Basophils/100 WBC (Bld) 0.7 % Normal 0.0-2.0 [facility] Comment on above: Performed By: #### L [id number] ####Sales Promotion Manager: MICKIE ASHER ([phone])[facility] ([facility])[address] [place] [address] Eosinophils (Bld) [#/Vol] 0.2 10*3/uL Normal 0.0-0.5 [facility] Comment on above: Performed By: #### L [id number] ####Sales Promotion Manager: MICKIE ASHER ([phone])[facility] ([facility])[address] [place] [address] Eosinophils/100 WBC (Bld) 2.4 % Normal 0.0-6.0 [facility] Comment on above: Performed By: #### L [id number] ####Sales Promotion Manager: MICKIE ASHER ([phone])[facility] ([facility])[address] [place] [address] Erythrocyte distribution width (RBC) [Ratio] 15.6 % High 11.5-15.0 [facility] Comment on above: Performed By: #### L [id number] ####Sales Promotion Manager: MICKIE ASHER ([phone])[facility])[address] [place] [address] Hematocrit (Bld) [Volume fraction] 26.4 % Low 40.0-52.0 [facility] Comment on above: Performed By: #### L [id number] ####Sales Promotion Manager: MICKIE ASHER ([phone])[facility])[address] [place] [address] Hemoglobin (Bld) [Mass/Vol] 8.2 g/dL Low 13.0-18.0 [facility] Comment on above: Performed By: #### L [id number] ####Sales Promotion Manager: MICKIE ASHER ([phone])[facility])[address] [place] [address] IMMATURE GRANS % 1.0 % Normal 0.0-2.0 [facility] Comment on above: Performed By: #### L [id number] ####Sales Promotion Manager: MICKIE ASHER ([phone])[facility])[address] [place] [address] IMMATURE GRANS ABSOLUTE 0.1 10*3/uL High <0.1 [facility] Comment on above: Performed By: #### L [id number] ####Sales Promotion Manager: MICKIE ASHER ([phone])[facility])[address] [place] [address] Lymphocytes (Bld) [#/Vol] 1.0 10*3/uL Normal 1.0-4.3 [facility] Comment on above: Performed By: #### L [id number] ####Sales Promotion Manager: MICKIE ASHER ([phone])[facility])[address] [place] [address] Lymphocytes/100 WBC (Bld) 11.8 % Low 15.0-45.0 [facility] Comment on above: Performed By: #### L [id number] ####Sales Promotion Manager: MICKIE ASHER ([phone])[facility])[address] [place] [address] MCH (RBC) [Entitic mass] 29.1 pg Normal 26.0-34.0 [facility] Comment on above: Performed By: #### L [id number] ####Sales Promotion Manager: MICKIE ASHER ([phone])[facility])[address] [place] [address] MCHC 31.1 % Normal 30.5-36.0 [facility] Comment on above: Performed By: #### L [id number] ####Sales Promotion Manager: MICKIE ASHER ([phone])[facility])[address] [place] [address] MCV (RBC) [Entitic vol] 93.6 fL Normal 77.0-99.0 [facility] Comment on above: Performed By: #### L [id number] ####Sales Promotion Manager: MICKIE ASHER ([phone])[facility])[address] [place] [address] Monocytes (Bld) [#/Vol] 1.0 10*3/uL High 0.0-0.9 [facility] Comment on above: Performed By: #### L [id number] ####Sales Promotion Manager: MICKIE ASHER ([phone])[facility])[address] [place] [address] Monocytes/100 WBC (Bld) 11.4 % Normal 5.0-13.0 [facility] Comment on above: Performed By: #### L [id number] ####Sales Promotion Manager: MICKIE ASHER ([phone])[facility])[address] [place] [address] NEUTROPHILS ABSOLUTE 6.4 10*3/uL Normal 1.8-7.5 [facility] Comment on above: Performed By: #### L [id number] ####Sales Promotion Manager: MICKIE ASHER ([phone])[facility])[address] [place] [address] Neutrophils/100 WBC (Bld) 72.7 % Normal 38.0-82.0 [facility] Comment on above: Performed By: #### L [id number] ####Sales Promotion Manager: MICKIE ASHER ([phone])[facility] ([facility])[address] [place] [address] NRBC 0.3 /100 WBCs Normal 0.0-2.0 [facility] Comment on above: Performed By: #### L [id number] ####Sales Promotion Manager: MICKIE ASHER ([phone])[facility] ([facility])[address] [place] [address] Platelet mean volume (Bld) [Entitic vol] 10.4 fL Normal 9.0-12.7 [facility] Comment on above: Performed By: #### L [id number] ####Sales Promotion Manager: MICKIE ASHER ([phone])[facility] ([facility])[address] [place] [address] Platelets (Bld) [#/Vol] 348 10*3/uL Normal 140-440 [facility] Comment on above: Performed By: #### L [id number] ####Sales Promotion Manager: MICKIE ASHER ([phone])[facility] ([facility])[address] [place] [address] RBC (Bld) [#/Vol] 2.82 10*6/uL Low 4.40-5.90 [facility] Comment on above: Performed By: #### L [id number] ####Sales Promotion Manager: MICKIE ASHER ([phone])[facility])[address] [place] [address] WBC (Bld) [#/Vol] 8.9 10*3/uL Normal 3.6-10.7 [facility] Comment on above: Performed By: #### L [id number] ####Sales Promotion Manager: MICKIE ASHER ([phone])[facility])[address] [place] [address] MAGNESIUMon 12-23-2024 Magnesium [Mass/Vol] 2.0 mg/dL Normal 1.6-2.6 [facility] Comment on above: Result Comment: AMANUEL [place] COMMENTS:Higher values can be expected in females during menses. Performed By: #### L [id number], [id number] ####Sales Promotion Manager: MICKIE ASHER ([phone])[facility] ([facility])[address] [place] [address] Progress Noteon 12-23-2024 Progress Note Normal [facility] Progress Note Normal [facility] Progress Note Normal [facility] Progress Note Normal [facility] [id number] 12-22-2024 [id number] Updates placed to [facility] via [facility] per TCC request. Await review and response regarding ability to accept. TCC notified. Electronically signed by GAVIN Rocha Normal [facility] BASIC METABOLIC PANELon Anion gap [Moles/Vol] 6 mmol/L Normal 3-13 [facility] Comment on above: Performed By: #### L [id number] ####Sales Promotion Manager: MICKIE ASHER ([phone])[facility] ([facility])[address] [place] [address] Calcium [Mass/Vol] 7.8 mg/dL Low 8.8-10.0 [facility] Comment on above: Performed By: #### L [id number] ####Sales Promotion Manager: MICKIE ASHER ([phone])[facility] ([facility])[address] [place] [address] Chloride [Moles/Vol] 108 mmol/L High 98-107 [facility] Comment on above: Performed By: #### L [id number] ####Sales Promotion Manager: MICKIE ASHER ([phone])[facility] ([facility])[address] [place] [address] CO2 [Moles/Vol] 23 mmol/L Normal 23-31 [facility] Comment on above: Performed By: #### L [id number] ####Sales Promotion Manager: MICKIE ASHER ([phone])[facility] ([facility])[address] [place] [address] Creatinine [Mass/Vol] 0.69 mg/dL Low 0.72-1.25 [facility] Comment on above: Performed By: #### L [id number] ####Sales Promotion Manager: MICKIE ASHER ([phone])[facility])[address] [place] [address] GLOMERULAR FILTRATION RATE ML/MIN/1.73 SQ M.PREDICTED >90.0 Normal >60.0 [facility] Comment on above: Result Comment: Calc ulation based on the Chronic Kidney Disease Epidemiology Collaboration (CKD-EPI) equation refit without adjustment for race Performed By: #### L [id number] ####Sales Promotion Manager: MICKIE ASHER ([phone])[facility])[address] [place] [address] Glucose [Mass/Vol] 87 mg/dL Normal 82-115 [facility] Comment on above: Performed By: #### L [id number] ####Sales Promotion Manager: MICKIE ASHER ([phone])[address] Potassium [Moles/Vol] 3.6 mmol/L Normal 3.5-5.1 [facility] Comment on above: Result Comment: [facility] potassium values may be up to 0.5 mmol/L lower than serum values. Performed By: #### L AB15 ####Sales Promotion Manager: MICKIE ASHER ([phone])[facility])[address] [place] [address] Sodium [Moles/Vol] 137 mmol/L Normal 136-145 [facility] Comment on above: Performed By: #### L [id number] ####Sales Promotion Manager: MICKIE ASHER ([phone])[facility])[address] [place] [address] Urea nitrogen [Mass/Vol] 11 mg/dL Normal 9-23 [facility] Comment on above: Performed By: #### L [id number] ####Sales Promotion Manager: MICKIE ASHER ([phone])[facility])[address] [place] [address] CBC WITH AUTO DIFFERENTIALon 12-22-2024 Basophils (Bld) [#/Vol] 0.0 10*3/uL Normal 0.0-0.2 [facility] Comment on above: Performed By: #### L [id number] ####Sales Promotion Manager: MICKIE ASHER ([phone])[facility])[address] [place] [address] Basophils/100 WBC (Bld) 0.4 % Normal 0.0-2.0 [facility] Comment on above: Performed By: #### L [id number] ####Sales Promotion Manager: MICKIE ASHER ([phone])[facility])[address] [place] [address] Eosinophils (Bld) [#/Vol] 0.2 10*3/uL Normal 0.0-0.5 [facility] Comment on above: Performed By: #### L [id number] ####Sales Promotion Manager: MICKIE ASHER ([phone])[facility])[address] [place] [address] Eosinophils/100 WBC (Bld) 2.7 % Normal 0.0-6.0 [facility] Comment on above: Performed By: #### L [id number] ####Sales Promotion Manager: MICKIE ASHER ([phone])[address] Erythrocyte distribution width (RBC) [Ratio] 15.7 % High 11.5-15.0 [facility] Comment on above: Performed By: #### L [id number] ####Sales Promotion Manager: MICKIE ASHER ([phone])[facility])[address] [place] [address] Hematocrit (Bld) [Volume fraction] 24.4 % Low 40.0-52.0 [facility] Comment on above: Performed By: #### L [id number] ####Sales Promotion Manager: MICKIE ASHER ([phone])[address] Hemoglobin (Bld) [Mass/Vol] 7.7 g/dL Low 13.0-18.0 [facility] Comment on above: Performed By: #### L [id number] ####Sales Promotion Manager: MICKIE ASHER ([phone])[facility])[address] [place] [address] IMMATURE GRANS % 1.1 % Normal 0.0-2.0 [facility] Comment on above: Performed By: #### L [id number] ####Sales Promotion Manager: MICKIE ASHER ([phone])[facility])[address] [place] [address] IMMATURE GRANS ABSOLUTE 0.1 10*3/uL High <0.1 [facility] Comment on above: Performed By: #### L [id number] ####Sales Promotion Manager: MICKIE ASHER ([phone])[facility])[address] [place] [address] Lymphocytes (Bld) [#/Vol] 1.1 10*3/uL Normal 1.0-4.3 [facility] Comment on above: Performed By: #### L [id number] ####Sales Promotion Manager: MICKIE ASHER ([phone])[facility])[address] [place] [address] Lymphocytes/100 WBC (Bld) 12.4 % Low 15.0-45.0 [facility] Comment on above: Performed By: #### L [id number] ####Sales Promotion Manager: MICKIE ASHER ([phone])[facility])[address] [place] [address] MCH (RBC) [Entitic mass] 29.1 pg Normal 26.0-34.0 [facility] Comment on above: Performed By: #### L [id number] ####Sales Promotion Manager: MICKIE ASHER ([phone])[facility])[address] [place] [address] MCHC 31.6 % Normal 30.5-36.0 [facility] Comment on above: Performed By: #### L [id number] ####Sales Promotion Manager: MICKIE ASHER ([phone])[facility])[address] [place] [address] MCV (RBC) [Entitic vol] 92.1 fL Normal 77.0-99.0 [facility] Comment on above: Performed By: #### L [id number] ####Sales Promotion Manager: MICKIE ASHER ([phone])[facility] ([facility])[address] [place] [address] Monocytes (Bld) [#/Vol] 0.8 10*3/uL Normal 0.0-0.9 [facility] Comment on above: Performed By: #### L [id number] ####Sales Promotion Manager: MICKIE ASHER ([phone])[facility] ([facility])[address] [place] [address] Monocytes/100 WBC (Bld) 9.8 % Normal 5.0-13.0 [facility] Comment on above: Performed By: #### L [id number] ####Sales Promotion Manager: MICKIE ASHER ([phone])[facility] ([facility])[address] [place] [address] NEUTROPHILS ABSOLUTE 6.3 10*3/uL Normal 1.8-7.5 [facility] Comment on above: Performed By: #### L [id number] ####Sales Promotion Manager: MICKIE ASHER ([phone])[facility] ([facility])[address] [place] [address] Neutrophils/100 WBC (Bld) 73.6 % Normal 38.0-82.0 [facility] Comment on above: Performed By: #### L [id number] ####Sales Promotion Manager: MICKIE ASHER ([phone])[facility] ([facility])[address] [place] [address] [place] NRBC 0.5 /100 WBCs Normal 0.0-2.0 [facility] Comment on above: Performed By: #### L [id number] ####Sales Promotion Manager: MICKIE ASHER ([phone])[facility] ([facility])[address] [place] [address] Platelet mean volume (Bld) [Entitic vol] 10.6 fL Normal 9.0-12.7 [facility] Comment on above: Performed By: #### L [id number] ####Sales Promotion Manager: MICKIE ASEHR ([phone])[facility] ([facility])[address] [place] [address] Platelets (Bld) [#/Vol] 261 10*3/uL Normal 140-440 [facility] Comment on above: Performed By: #### L [id number] ####Sales Promotion Manager: MICKIE ASHER ([phone])[facility] ([facility])[address] [place] [address] RBC (Bld) [#/Vol] 2.65 10*6/uL Low 4.40-5.90 [facility] Comment on above: Performed By: #### L [id number] ####Sales Promotion Manager: MICKIE ASHER ([phone])[facility] ([facility])[address] [place] [address] WBC (Bld) [#/Vol] 8.5 10*3/uL Normal 3.6-10.7 [facility] Comment on above: Performed By: #### L [id number] ####Sales Promotion Manager: MICKIE ASHER ([phone])[facility])[address] [place] [address] Progress Noteon 12-22-2024 Progress Note Normal [facility] Progress Note Vancomycin therapy has been discontinued by Terrence Castro on 12/22. Thank you for the consult. Pharmacy signing off for vancomycin dosing. Shanti Soriano PharmD, Date: 12/22/24 Time: 11:56 AM Normal [facility] Progress Note Normal [facility] Progress Note Normal [facility] VANCOMYCIN, AUC TIMED DOSING on 12-22-2024 VANCOMYCIN, AUC 19.0 ug/mL Normal [facility] Comment on above: Result Comment: AMANUEL [place] COMMENTS:Please draw random level with am labs 12/22/24 at least >2 hours after the end of the last vancomycin infusion, or 30-minutes before next infusion. Thank YouToxicity is seen at concentrations >80-100 ug/mLTherapeutic (Peak) range: 20-40Therapeutic (Trough) range: 5-10 Performed By: #### L [id number] ####Sales Promotion Manager: MICKIE ASHER ([phone])[facility] ([facility])[address] [place] [address] [place] 30on 12-21-2024 30 Normal [facility] 30 Normal [facility] [id number] 12-21-2024 [id number] Normal [facility] BASIC METABOLIC PANELon 07 Anion gap [Moles/Vol] 8 mmol/L Normal 3-13 [facility] Comment on above: Performed By: #### L [id number] ####Sales Promotion Manager: MICKIE ASHER ([phone])[facility])[address] [place] [address] Calcium [Mass/Vol] 7.6 mg/dL Low 8.8-10.0 [facility] Comment on above: Performed By: #### L [id number] ####Sales Promotion Manager: MICKIE ASHER ([phone])[facility] ([facility])[address] [place] [address] [place] Chloride [Moles/Vol] 109 mmol/L High 98-107 [facility] Comment on above: Performed By: #### L [id number] ####Sales Promotion Manager: MICKIE ASHER ([phone])[facility])[address] [place] [address] [place] CO2 [Moles/Vol] 22 mmol/L Low 23-31 [facility] Comment on above: Performed By: #### L [id number] ####Sales Promotion Manager: MICKIE ASHER ([phone])[facility])[address] [place] [address] [place] Creatinine [Mass/Vol] 0.70 mg/dL Low 0.72-1.25 [facility] Comment on above: Performed By: #### L [id number] ####Sales Promotion Manager: MICKIE ASHER ([phone])[facility])[address] [place] [address] GLOMERULAR FILTRATION RATE ML/MIN/1.73 SQ M.PREDICTED >90.0 Normal >60.0 [facility] Comment on above: Result Comment: Calc ulation based on the Chronic Kidney Disease Epidemiology Collaboration (CKD-EPI) equation refit without adjustment for race Performed By: #### L [id number] ####Sales Promotion Manager: MICKIE ASHER ([phone])[facility])[address] [place] [address] Glucose [Mass/Vol] 97 mg/dL Normal 82-115 [facility] Comment on above: Performed By: #### L AB15 ####Sales Promotion Manager: MICKIE ASHER ([phone])[facility])[address] [place] [address] Potassium [Moles/Vol] 3.8 mmol/L Normal 3.5-5.1 [facility] Comment on above: Result Comment: [facility] potassium values may be up to 0.5 mmol/L lower than serum values. Performed By: #### L AB15 ####Sales Promotion Manager: MICKIE ASHER ([phone])[facility] ([facility])[address] [place] [address] [place] Sodium [Moles/Vol] 139 mmol/L Normal 136-145 [facility] Comment on above: Performed By: #### L [id number] ####Sales Promotion Manager: MICKIE ASHER ([phone])[address] Urea nitrogen [Mass/Vol] 18 mg/dL Normal 9-23 [facility] Comment on above: Performed By: #### L AB15 ####Sales Promotion Manager: MICKIE ASHER ([phone])[facility])[address] [place] [address] CBC WITH AUTO DIFFERENTIALon 12-21-2024 Basophils (Bld) [#/Vol] 0.0 10*3/uL Normal 0.0-0.2 [facility] Comment on above: Performed By: #### L [id number] ####Sales Promotion Manager: MICKIE ASHER ([phone])[facility])[address] [place] [address] Basophils/100 WBC (Bld) 0.1 % Normal 0.0-2.0 [facility] Comment on above: Performed By: #### L [id number] ####Sales Promotion Manager: MICKIE ASHER ([phone])[facility])[address] [place] [address] Eosinophils (Bld) [#/Vol] 0.2 10*3/uL Normal 0.0-0.5 [facility] Comment on above: Performed By: #### L [id number] ####Sales Promotion Manager: MICKIE ASHER ([phone])[address] Eosinophils/100 WBC (Bld) 2.1 % Normal 0.0-6.0 [facility] Comment on above: Performed By: #### L [id number] ####Sales Promotion Manager: MICKIE ASHER ([phone])[facility])[address] [place] [address] Erythrocyte distribution width (RBC) [Ratio] 15.6 % High 11.5-15.0 [facility] Comment on above: Performed By: #### L [id number] ####Sales Promotion Manager: MICKIE ASHER ([phone])[address] Hematocrit (Bld) [Volume fraction] 22.1 % Low 40.0-52.0 [facility] Comment on above: Performed By: #### L [id number] ####Sales Promotion Manager: MICKIE ASHER ([phone])[address] Hemoglobin (Bld) [Mass/Vol] 6.9 g/dL Critically low 13.0-18.0 [facility] Comment on above: Performed By: #### L [id number] ####Sales Promotion Manager: MICKIE ASHER ([phone])[facility])[address] [place] [address] IMMATURE GRANS % 1.3 % Normal 0.0-2.0 [facility] Comment on above: Performed By: #### L [id number] ####Sales Promotion Manager: MICKIE ASHER ([phone])[facility])[address] [place] [address] IMMATURE GRANS ABSOLUTE 0.1 10*3/uL High <0.1 [facility] Comment on above: Performed By: #### L [id number] ####Sales Promotion Manager: MICKIE ASHER ([phone])[facility])[address] [place] [address] IPF 4 Normal [facility] Comment on above: Performed By: #### L [id number] ####Sales Promotion Manager: MICKIE ASHER ([phone])[facility])[address] [place] [address] Lymphocytes (Bld) [#/Vol] 0.8 10*3/uL Low 1.0-4.3 [facility] Comment on above: Performed By: #### L [id number] ####Sales Promotion Manager: MICKIE ASHER ([phone])[facility])[address] [place] [address] Lymphocytes/100 WBC (Bld) 8.2 % Low 15.0-45.0 [facility] Comment on above: Performed By: #### L [id number] ####Sales Promotion Manager: MICKIE ASHER ([phone])[facility])[address] [place] [address] MCH (RBC) [Entitic mass] 29.4 pg Normal 26.0-34.0 [facility] Comment on above: Performed By: #### L [id number] ####Sales Promotion Manager: MICKIE ASHER ([phone])[facility])[address] [place] [address] MCHC 31.2 % Normal 30.5-36.0 [facility] Comment on above: Performed By: #### L [id number] ####Sales Promotion Manager: MICKIE ASHER ([phone])[facility] ([facility])[address] [place] [address] MCV (RBC) [Entitic vol] 94.0 fL Normal 77.0-99.0 S [facility] Comment on above: Performed By: #### L [id number] ####Sales Promotion Manager: MICKIE ASHER ([phone])[facility] ([facility])[address] [place] [address] Monocytes (Bld) [#/Vol] 0.7 10*3/uL Normal 0.0-0.9 [facility] Comment on above: Performed By: #### L [id number] ####Sales Promotion Manager: MICKIE ASHER ([phone])[facility])[address] [place] [address] Monocytes/100 WBC (Bld) 6.9 % Normal 5.0-13.0 [facility] Comment on above: Performed By: #### L [id number] ####Sales Promotion Manager: MICKIE ASHER ([phone])[facility] ([facility])[address] [place] [address] NEUTROPHILS ABSOLUTE 8.4 10*3/uL High 1.8-7.5 [facility] Comment on above: Performed By: #### L [id number] ####Sales Promotion Manager: MICKIE ASHER ([phone])[facility] ([facility])[address] [place] [address] Neutrophils/100 WBC (Bld) 81.4 % Normal 38.0-82.0 [facility] Comment on above: Performed By: #### L [id number] ####Sales Promotion Manager: MICKIE ASHER ([phone])[facility] ([facility])[address] [place] [address] NRBC 0.2 /100 WBCs Normal 0.0-2.0 [facility] Comment on above: Performed By: #### L [id number] ####Sales Promotion Manager: MICKIE ASHER ([phone])[facility] ([facility])[address] [place] [address] Platelet mean volume (Bld) [Entitic vol] 10.8 fL Normal 9.0-12.7 [facility] Comment on above: Performed By: #### L [id number] ####Sales Promotion Manager: MICKIE ASHER ([phone])[facility])[address] [place] [address] Platelets (Bld) [#/Vol] 212 10*3/uL Normal 140-440 [facility] Comment on above: Performed By: #### L [id number] ####Sales Promotion Manager: MICKIE ASHER ([phone])[facility])[address] [place] [address] RBC (Bld) [#/Vol] 2.35 10*6/uL Low 4.40-5.90 [facility] Comment on above: Performed By: #### L [id number] ####Sales Promotion Manager: MICKIE ASHER ([phone])[facility])[address] [place] [address] WBC (Bld) [#/Vol] 10.3 10*3/uL Normal 3.6-10.7 [facility] Comment on above: Performed By: #### L [id number] ####Sales Promotion Manager: MICKIE ASHER ([phone])[facility])[address] [place] [address] Consulton 12-21-2024 Consult Normal [facility] HEMOGLOBIN AND HEMATOCRIT, B LOODon 12-21-2024 Hematocrit (Bld) [Volume fraction] 24.1 % Low 40.0-52.0 [facility] Comment on above: Order Comment: Recom mend 1 hour post transfusion Performed By: #### L [id number] ####Sales Promotion Manager: MICKIE ASHER ([phone])[facility])[address] [place] [address] Hemoglobin (Bld) [Mass/Vol] 7.7 g/dL Low 13.0-18.0 [facility] Comment on above: Order Comment: Recom mend 1 hour post transfusion Performed By: #### L [id number] ####Sales Promotion Manager: MICKIE ASHER ([phone])[facility] ([facility])[address] [place] [address] Hematocrit (Bld) [Volume fraction] 21.9 % Low 40.0-52.0 [facility] Comment on above: Performed By: #### L [id number] ####Sales Promotion Manager: MICKIE ASHER ([phone])[facility])[address] [place] [address] Hemoglobin (Bld) [Mass/Vol] 6.9 g/dL Critically low 13.0-18.0 [facility] Comment on above: Performed By: #### L [id number] ####Sales Promotion Manager: MICKIE ASHER ([phone])[facility])[address] [place] [address] Nursing Noteon 12-21-2024 Nursing Note Normal [facility] Progress Noteon 12-21-2024 Progress Note Normal [facility] Progress Note [facility] Progress Note Normal [facility] Progress Note Normal [facility] Progress Note Normal [facility] VANCOMYCIN, AUC TIMED DOSING on 12-21-2024 VANCOMYCIN, AUC 34.1 ug/mL Normal [facility] Comment on above: Result Comment: AMANUEL [place] COMMENTS:@@ Please draw at least 2 hours AFTER 11pm dose of Vancomycin is completed, thank you! @@Toxicity is seen at concentrations >80-100 ug/mLTherapeutic (Peak) range: 20-40Therapeutic (Trough) range: 5-10 Performed By: #### L AB39 ####Sales Promotion Manager: MICKIE ASHER ([phone])[facility] ([facility])[address] [place] [address] 30on 12-20-2024 30 Normal [facility] 30 Normal [facility] BASIC METABOLIC PANELon Anion gap [Moles/Vol] 9 mmol/L Normal 3-13 [facility] Comment on above: Performed By: #### L [id number] ####Sales Promotion Manager: MICKIE ASHER ([phone])[facility] ([facility])[address] [place] [address] Calcium [Mass/Vol] 8.1 mg/dL Low 8.8-10.0 [facility] Comment on above: Performed By: #### L [id number] ####Sales Promotion Manager: MICKIE ASHER ([phone])[facility] ([facility])[address] [place] [address] Chloride [Moles/Vol] 104 mmol/L Normal 98-107 [facility] Comment on above: Performed By: #### L AB15 ####Sales Promotion Manager: MICKIE ASHER ([phone])[facility] ([facility])[address] [place] [address] CO2 [Moles/Vol] 25 mmol/L Normal 23-31 [facility] Comment on above: Performed By: #### L AB15 ####Sales Promotion Manager: MICKIE ASHER ([phone])[facility] ([facility])[address] [place] [address] Creatinine [Mass/Vol] 0.75 mg/dL Normal 0.72-1.25 [facility] Comment on above: Performed By: #### L AB15 ####Sales Promotion Manager: MICKIE ASHER ([phone])[facility])[address] [place] [address] GLOMERULAR FILTRATION RATE ML/MIN/1.73 SQ M.PREDICTED >90.0 Normal >60.0 [facility] Comment on above: Result Comment: Calc ulation based on the Chronic Kidney Disease Epidemiology Collaboration (CKD-EPI) equation refit without adjustment for race Performed By: #### L [id number] ####Sales Promotion Manager: MICKIE ASHER ([phone])[facility] ([facility])[address] [place] [address] [place] Glucose [Mass/Vol] 131 mg/dL High 82-115 [facility] Comment on above: Performed By: #### L [id number] ####Sales Promotion Manager: MICKIE ASHER ([phone])[facility] ([facility])[address] [place] [address] [place] Potassium [Moles/Vol] 4.0 mmol/L Normal 3.5-5.1 [facility] Comment on above: Result Comment: [facility] potassium values may be up to 0.5 mmol/L lower than serum values. Performed By: #### L [id number] ####Sales Promotion Manager: MICKIE ASHER ([phone])[facility])[address] [place] [address] Sodium [Moles/Vol] 138 mmol/L Normal 136-145 [facility] Comment on above: Performed By: #### L [id number] ####Sales Promotion Manager: MICKIE ASHER ([phone])[facility])[address] [place] [address] Urea nitrogen [Mass/Vol] 20 mg/dL Normal 9-23 [facility] Comment on above: Performed By: #### L [id number] ####Sales Promotion Manager: MICKIE ASHER ([phone])[facility])[address] [place] [address] BLOOD CULTUREon 12-20-2024 Bacteria identified Cx Nom (Bld) Normal [facility] Comment on above: Performed By: #### L [id number] ####Sales Promotion Manager: MICKIE ASHER ([phone])[address] Bacteria identified Cx Nom (Bld) Normal [facility] Comment on above: Performed By: #### L [id number] ####Sales Promotion Manager: MICKIE ASHER ([phone])[facility])[address] [place] [address] CBC WITH AUTO DIFFERENTIALon 12-20-2024 Basophils (Bld) [#/Vol] 0.1 10*3/uL Normal 0.0-0.2 [facility] Comment on above: Performed By: #### L [id number] ####Sales Promotion Manager: MICKIE ASHER ([phone])[facility])[address] [place] [address] Basophils/100 WBC (Bld) 0.3 % Normal 0.0-2.0 [facility] Comment on above: Performed By: #### L [id number] ####Sales Promotion Manager: MICKIE ASHER ([phone])[facility])[address] [place] [address] Eosinophils (Bld) [#/Vol] 0.2 10*3/uL Normal 0.0-0.5 [facility] Comment on above: Performed By: #### L [id number] ####Sales Promotion Manager: MICKIE ASHER ([phone])[facility])[address] [place] [address] Eosinophils/100 WBC (Bld) 0.9 % Normal 0.0-6.0 [facility] Comment on above: Performed By: #### L [id number] ####Sales Promotion Manager: MICKIE ASHER ([phone])[facility])[address] [place] [address] Erythrocyte distribution width (RBC) [Ratio] 15.8 % High 11.5-15.0 [facility] Comment on above: Performed By: #### L [id number] ####Sales Promotion Manager: MICKIE ASHER ([phone])[facility])[address] [place] [address] Hematocrit (Bld) [Volume fraction] 24.3 % Low 40.0-52.0 [facility] Comment on above: Performed By: #### L [id number] ####Sales Promotion Manager: MICKIE ASHER ([phone])[facility])[address] [place] [address] Hemoglobin (Bld) [Mass/Vol] 7.7 g/dL Low 13.0-18.0 [facility] Comment on above: Performed By: #### L [id number] ####Sales Promotion Manager: MICKIE ASHER ([phone])[facility])[address] [place] [address] IMMATURE GRANS % 2.7 % High 0.0-2.0 [facility] Comment on above: Performed By: #### L [id number] ####Sales Promotion Manager: MICKIE ASHER ([phone])[facility])[address] [place] [address] IMMATURE GRANS ABSOLUTE 0.5 10*3/uL High <0.1 [facility] Comment on above: Performed By: #### L [id number] ####Sales Promotion Manager: MICKIE ASHER ([phone])[facility])[address] [place] [address] Lymphocytes (Bld) [#/Vol] 0.7 10*3/uL Low 1.0-4.3 [facility] Comment on above: Performed By: #### L [id number] ####Sales Promotion Manager: MICKIE ASHER ([phone])[address] Lymphocytes/100 WBC (Bld) 3.7 % Low 15.0-45.0 [facility] Comment on above: Performed By: #### L [id number] ####Sales Promotion Manager: MICKIE ASHER ([phone])[facility])[address] [place] [address] MCH (RBC) [Entitic mass] 29.6 pg Normal 26.0-34.0 [facility] Comment on above: Performed By: #### L [id number] ####Sales Promotion Manager: MICKIE ASHER ([phone])[facility])[address] [place] [address] MCHC 31.7 % Normal 30.5-36.0 [facility] Comment on above: Performed By: #### L [id number] ####Sales Promotion Manager: MICKIE ASHER ([phone])[facility])[address] [place] [address] MCV (RBC) [Entitic vol] 93.5 fL Normal 77.0-99.0 [facility] Comment on above: Performed By: #### L [id number] ####Sales Promotion Manager: MICKIE ASHER ([phone])[facility])[address] [place] [address] Monocytes (Bld) [#/Vol] 0.8 10*3/uL Normal 0.0-0.9 [facility] Comment on above: Performed By: #### L [id number] ####Sales Promotion Manager: MICKIE ASHER ([phone])[facility] ([facility])[address] [place] [address] Monocytes/100 WBC (Bld) 4.4 % Low 5.0-13.0 [facility] Comment on above: Performed By: #### L [id number] ####Sales Promotion Manager: MICKIE ASHER ([phone])[facility] ([facility])[address] [place] [address] NEUTROPHILS ABSOLUTE 16.0 10*3/uL High 1.8-7.5 [facility] Comment on above: Performed By: #### L [id number] ####Sales Promotion Manager: MICKIE ASHER ([phone])[facility] ([facility])[address] [place] [address] Neutrophils/100 WBC (Bld) 88.0 % High 38.0-82.0 [facility] Comment on above: Performed By: #### L [id number] ####Sales Promotion Manager: MICKIE ASHER ([phone])[facility] ([facility])[address] [place] [address] NRBC 0.1 /100 WBCs Normal 0.0-2.0 [facility] Comment on above: Performed By: #### L [id number] ####Sales Promotion Manager: MICKIE ASHER ([phone])[facility] ([facility])[address] [place] [address] Platelet mean volume (Bld) [Entitic vol] 9.9 fL Normal 9.0-12.7 [facility] Comment on above: Performed By: #### L [id number] ####Sales Promotion Manager: MICKIE ASHER ([phone])[facility] ([facility])[address] [place] [address] Platelets (Bld) [#/Vol] 358 10*3/uL Normal 140-440 [facility] Comment on above: Performed By: #### L [id number] ####Sales Promotion Manager: MICKIE ASHER ([phone])[facility])[address] [place] [address] RBC (Bld) [#/Vol] 2.60 10*6/uL Low 4.40-5.90 [facility] Comment on above: Performed By: #### L [id number] ####Sales Promotion Manager: MICKIE ASHER ([phone])[facility])[address] [place] [address] WBC (Bld) [#/Vol] 18.2 10*3/uL High 3.6-10.7 [facility] Comment on above: Performed By: #### L [id number] ####Sales Promotion Manager: MCIKIE ASHER ([phone])[facility])[address] [place] [address] CT ABDOMEN PELVIS W CONTRAST on 12-20-2024 CT ABDOMEN PELVIS W CONTRAST Normal [facility] Consulton 12-20-2024 Consult Normal [facility] LACTIC ACID WITH REFLEXon Lactate [Moles/Vol] 0.7 mmol/L Normal 0.5-2.2 [facility] Comment on above: Performed By: #### L [id number] ####Sales Promotion Manager: MICKIE ASHER ([phone])[address] Nursing Noteon 12-20-2024 Nursing Note Current IV infiltrated. Attempted to regain IV access x2 and was unsuccessful. Call placed to IV/Blood draw team and appropriate message left. Normal [facility] Nursing Note Normal [facility] Progress Noteon 12-20-2024 Progress Note [facility] Progress Note Normal [facility] Progress Note Normal [facility] BASIC METABOLIC PANELon Anion gap [Moles/Vol] 7 mmol/L Normal 3-13 [facility] Comment on above: Performed By: #### L [id number] ####Sales Promotion Manager: MICKIE ASHER ([phone])[facility] ([facility])[address] [place] [address] Calcium [Mass/Vol] 8.2 mg/dL Low 8.8-10.0 [facility] Comment on above: Performed By: #### L [id number] ####Sales Promotion Manager: MICKIE ASHER ([phone])[facility] ([facility])[address] [place] [address] [place] Chloride [Moles/Vol] 106 mmol/L Normal 98-107 [facility] Comment on above: Performed By: #### L [id number] ####Sales Promotion Manager: MICKIE ASHER ([phone])[facility])[address] [place] [address] CO2 [Moles/Vol] 25 mmol/L Normal 23-31 [facility] Comment on above: Performed By: #### L [id number] ####Sales Promotion Manager: MICKIE ASHER ([phone])[facility] ([facility])[address] [place] [address] Creatinine [Mass/Vol] 0.75 mg/dL Normal 0.72-1.25 [facility] Comment on above: Performed By: #### L [id number] ####Sales Promotion Manager: MICKIE ASHER ([phone])[facility] ([facility])[address] [place] [address] GLOMERULAR FILTRATION RATE ML/MIN/1.73 SQ M.PREDICTED >90.0 Normal >60.0 [facility] Comment on above: Result Comment: Calc ulation based on the Chronic Kidney Disease Epidemiology Collaboration (CKD-EPI) equation refit without adjustment for race Performed By: #### L [id number] ####Sales Promotion Manager: MICKIE ASHER ([phone])[facility] ([facility])[address] [place] [address] Glucose [Mass/Vol] 128 mg/dL High 82-115 [facility] Comment on above: Performed By: #### L [id number] ####Sales Promotion Manager: MICKIE ASHER ([phone])[facility] ([facility])[address] [place] [address] Potassium [Moles/Vol] 4.1 mmol/L Normal 3.5-5.1 [facility] Comment on above: Result Comment: [facility] potassium values may be up to 0.5 mmol/L lower than serum values. Performed By: #### L [id number] ####Sales Promotion Manager: MICKEI ASHER ([phone])[facility])[address] [place] [address] Sodium [Moles/Vol] 138 mmol/L Normal 136-145 [facility] Comment on above: Performed By: #### L [id number] ####Sales Promotion Manager: MICKIE ASHER ([phone])[facility])[address] [place] [address] Urea nitrogen [Mass/Vol] 16 mg/dL Normal 9-23 [facility] Comment on above: Performed By: #### L [id number] ####Sales Promotion Manager: MICKIE ASHER ([phone])[facility] ([facility])[address] [place] [address] BLOOD TYPE AND SCREEN GELon 2024 ABO GROUPING A Normal [facility] Comment on above: Performed By: #### L [id number] ####Sales Promotion Manager: MICKIE ASHER ([phone])[facility] [place] [address] RH TYPE IN BLOOD Positive Normal [facility] Comment on above: Performed By: #### L [id number] ####Sales Promotion Manager: MICKIE ASHER ([phone])[facility] ([facility])[address] [place] [address] CBC WITH AUTO DIFFERENTIALon 2024 Basophils (Bld) [#/Vol] 0.1 10*3/uL Normal 0.0-0.2 [facility] Comment on above: Performed By: #### L [id number] ####Sales Promotion Manager: MICKIE ASHER ([phone])[facility])[address] [place] [address] Basophils/100 WBC (Bld) 0.3 % Normal 0.0-2.0 [facility] Comment on above: Performed By: #### L [id number] ####Sales Promotion Manager: MICKIE ASHER ([phone])[facility])[address] [place] [address] Eosinophils (Bld) [#/Vol] 0.1 10*3/uL Normal 0.0-0.5 [facility] Comment on above: Performed By: #### L [id number] ####Sales Promotion Manager: MICKIE ASHER ([phone])[facility])[address] [place] [address] Eosinophils/100 WBC (Bld) 0.7 % Normal 0.0-6.0 [facility] Comment on above: Performed By: #### L [id number] ####Sales Promotion Manager: MICKIE ASHER ([phone])[facility])[address] [place] [address] Erythrocyte distribution width (RBC) [Ratio] 15.8 % High 11.5-15.0 [facility] Comment on above: Performed By: #### L [id number] ####Sales Promotion Manager: MICKIE ASHER ([phone])[facility])[address] [place] [address] Hematocrit (Bld) [Volume fraction] 24.6 % Low 40.0-52.0 [facility] Comment on above: Performed By: #### L [id number] ####Sales Promotion Manager: MICKIE ASHER ([phone])[facility])[address] [place] [address] Hemoglobin (Bld) [Mass/Vol] 7.8 g/dL Low 13.0-18.0 [facility] Comment on above: Performed By: #### L [id number] ####Sales Promotion Manager: MICKIE ASHER ([phone])[facility])[address] [place] [address] IMMATURE GRANS % 2.2 % High 0.0-2.0 [facility] Comment on above: Performed By: #### L [id number] ####Sales Promotion Manager: MICKIE ASHER ([phone])[facility])[address] [place] [address] IMMATURE GRANS ABSOLUTE 0.3 10*3/uL High <0.1 [facility] Comment on above: Performed By: #### L [id number] ####Sales Promotion Manager: MICKIE ASHER ([phone])[facility])[address] [place] [address] Lymphocytes (Bld) [#/Vol] 1.3 10*3/uL Normal 1.0-4.3 [facility] Comment on above: Performed By: #### L [id number] ####Sales Promotion Manager: MICKIE ASHER ([phone])[address] Lymphocytes/100 WBC (Bld) 8.9 % Low 15.0-45.0 [facility] Comment on above: Performed By: #### L [id number] ####Sales Promotion Manager: MICKIE ASHER ([phone])[facility])[address] [place] [address] MCH (RBC) [Entitic mass] 29.9 pg Normal 26.0-34.0 [facility] Comment on above: Performed By: #### L [id number] ####Sales Promotion Manager: MICKIE ASHER ([phone])[facility])[address] [place] [address] MCHC 31.7 % Normal 30.5-36.0 [facility] Comment on above: Performed By: #### L [id number] ####Sales Promotion Manager: MICKIE ASHER ([phone])[address] MCV (RBC) [Entitic vol] 94.3 fL Normal 77.0-99.0 [facility] Comment on above: Performed By: #### L [id number] ####Sales Promotion Manager: MICKIE ASHER ([phone])[facility])[address] [place] [address] Monocytes (Bld) [#/Vol] 1.2 10*3/uL High 0.0-0.9 [facility] Comment on above: Performed By: #### L [id number] ####Sales Promotion Manager: MICKIE ASHER ([phone])[facility] ([facility])[address] [place] [address] Monocytes/100 WBC (Bld) 7.8 % Normal 5.0-13.0 [facility] Comment on above: Performed By: #### L [id number] ####Sales Promotion Manager: MICKIE ASHER ([phone])[facility] ([facility])[address] [place] [address] NEUTROPHILS ABSOLUTE 11.9 10*3/uL High 1.8-7.5 [facility] Comment on above: Performed By: #### L [id number] ####Sales Promotion Manager: MICKIE ASHER ([phone])[facility] ([facility])[address] [place] [address] Neutrophils/100 WBC (Bld) 80.1 % Normal 38.0-82.0 [facility] Comment on above: Performed By: #### L [id number] ####Sales Promotion Manager: MICKIE ASHER ([phone])[facility] ([facility])[address] [place] [address] NRBC 0.2 /100 WBCs Normal 0.0-2.0 [facility] Comment on above: Performed By: #### L [id number] ####Sales Promotion Manager: MICKIE ASHER ([phone])[facility] ([facility])[address] [place] [address] Platelet mean volume (Bld) [Entitic vol] 9.4 fL Normal 9.0-12.7 [facility] Comment on above: Performed By: #### L [id number] ####Sales Promotion Manager: MICKIE ASHER ([phone])[facility] ([facility])[address] [place] [address] [place] Platelets (Bld) [#/Vol] 526 10*3/uL High 140-440 [facility] Comment on above: Performed By: #### L [id number] ####Sales Promotion Manager: MICKIE ASHER ([phone])[facility])[address] [place] [address] RBC (Bld) [#/Vol] 2.61 10*6/uL Low 4.40-5.90 [facility] Comment on above: Performed By: #### L [id number] ####Sales Promotion Manager: MICKIE ASHER ([phone])[facility])[address] [place] [address] WBC (Bld) [#/Vol] 14.9 10*3/uL High 3.6-10.7 [facility] Comment on above: Performed By: #### L [id number] ####Sales Promotion Manager: MICKIE ASHER ([phone])[facility])[address] [place] [address] Progress Noteon 2024 Progress Note Normal [facility] 30on 12-18-2024 30 Normal [facility] 30 Normal [facility] APTTon 12-18-2024 aPTT Coag (Bld) [Time] 26.5 s Normal 20.0-30.5 [facility] Comment on above: Result Comment: [facility] [place] COMMENTS:NOTE: The therapeutic time for Heparin anticoagulation, based on Xa activity inhibition, is an APTT of 46-80 seconds. Performed By: #### L [id number] ####Sales Promotion Manager: MICKIE ASHER ([phone])[facility])[address] [place] [address] BASIC METABOLIC PANELon Anion gap [Moles/Vol] 6 mmol/L Normal 3-13 [facility] Comment on above: Performed By: #### L [id number] ####Sales Promotion Manager: MICKIE ASHER ([phone])[facility])[address] [place] [address] Calcium [Mass/Vol] 8.0 mg/dL Low 8.8-10.0 [facility] Comment on above: Performed By: #### L [id number] ####Sales Promotion Manager: MICKIE ASHER ([phone])[facility] ([facility])[address] [place] [address] Chloride [Moles/Vol] 105 mmol/L Normal 98-107 [facility] Comment on above: Performed By: #### L [id number] ####Sales Promotion Manager: MICKIE ASHER ([phone])[facility] ([facility])[address] [place] [address] CO2 [Moles/Vol] 27 mmol/L Normal 23-31 [facility] Comment on above: Performed By: #### L [id number] ####Sales Promotion Manager: MICKIE ASHER ([phone])[facility] ([facility])[address] [place] [address] Creatinine [Mass/Vol] 0.74 mg/dL Normal 0.72-1.25 [facility] Comment on above: Performed By: #### L [id number] ####Sales Promotion Manager: MICKIE ASHER ([phone])[facility] ([facility])[address] [place] [address] GLOMERULAR FILTRATION RATE ML/MIN/1.73 SQ M.PREDICTED >90.0 Normal >60.0 [facility] Comment on above: Result Comment: Calc ulation based on the Chronic Kidney Disease Epidemiology Collaboration (CKD-EPI) equation refit without adjustment for race Performed By: #### L [id number] ####Sales Promotion Manager: MICKIE ASHER ([phone])[facility] ([facility])[address] [place] [address] [place] Glucose [Mass/Vol] 152 mg/dL High 82-115 [facility] Comment on above: Performed By: #### L [id number] ####Sales Promotion Manager: MICKIE ASHER ([phone])[facility] ([facility])[address] [place] [address] Potassium [Moles/Vol] 3.9 mmol/L Normal 3.5-5.1 [facility] Comment on above: Result Comment: [facility] potassium values may be up to 0.5 mmol/L lower than serum values. Performed By: #### L [id number] ####Sales Promotion Manager: MICKIE ASHER ([phone])[address] Sodium [Moles/Vol] 138 mmol/L Normal 136-145 [facility] Comment on above: Performed By: #### L AB15 ####Sales Promotion Manager: MICKIE ASHER ([phone])[facility])[address] [place] [address] Urea nitrogen [Mass/Vol] 15 mg/dL Normal 9-23 [facility] Comment on above: Performed By: #### L [id number] ####Sales Promotion Manager: MICKIE ASHER ([phone])[facility])[address] [place] [address] CBC WITH AUTO DIFFERENTIALon 12-18-2024 Basophils (Bld) [#/Vol] 0.0 10*3/uL Normal 0.0-0.2 [facility] Comment on above: Performed By: #### L [id number] ####Sales Promotion Manager: MICKIE ASHER ([phone])[facility])[address] [place] [address] Basophils/100 WBC (Bld) 0.2 % Normal 0.0-2.0 [facility] Comment on above: Performed By: #### L [id number] ####Sales Promotion Manager: MICKIE ASHER ([phone])[facility])[address] [place] [address] Eosinophils (Bld) [#/Vol] 0.0 10*3/uL Normal 0.0-0.5 [facility] Comment on above: Performed By: #### L [id number] ####Sales Promotion Manager: MICKIE ASHER ([phone])[facility])[address] [place] [address] Eosinophils/100 WBC (Bld) 0.1 % Normal 0.0-6.0 [facility] Comment on above: Performed By: #### L [id number] ####Sales Promotion Manager: MICKIE ASHER ([phone])[facility])[address] [place] [address] Erythrocyte distribution width (RBC) [Ratio] 15.3 % High 11.5-15.0 [facility] Comment on above: Performed By: #### L [id number] ####Sales Promotion Manager: MICKIE ASHER ([phone])[facility])[address] [place] [address] Hematocrit (Bld) [Volume fraction] 25.4 % Low 40.0-52.0 [facility] Comment on above: Performed By: #### L [id number] ####Sales Promotion Manager: MICKIE ASHER ([phone])[address] Hemoglobin (Bld) [Mass/Vol] 8.0 g/dL Low 13.0-18.0 [facility] Comment on above: Performed By: #### L [id number] ####Sales Promotion Manager: MICKIE ASHER ([phone])[facility])[address] [place] [address] IMMATURE GRANS % 1.7 % Normal 0.0-2.0 [facility] Comment on above: Performed By: #### L [id number] ####Sales Promotion Manager: MICKIE ASHER ([phone])[facility])[address] [place] [address] IMMATURE GRANS ABSOLUTE 0.3 10*3/uL High <0.1 [facility] Comment on above: Performed By: #### L [id number] ####Sales Promotion Manager: MICKIE ASHER ([phone])[facility])[address] [place] [address] Lymphocytes (Bld) [#/Vol] 1.1 10*3/uL Normal 1.0-4.3 [facility] Comment on above: Performed By: #### L [id number] ####Sales Promotion Manager: MICKIE ASHER ([phone])[facility])[address] [place] [address] Lymphocytes/100 WBC (Bld) 7.0 % Low 15.0-45.0 [facility] Comment on above: Performed By: #### L [id number] ####Sales Promotion Manager: MICKIE ASHER ([phone])[facility])[address] [place] [address] MCH (RBC) [Entitic mass] 29.7 pg Normal 26.0-34.0 [facility] Comment on above: Performed By: #### L [id number] ####Sales Promotion Manager: MICKIE ASHER ([phone])[facility])[address] [place] [address] MCHC 31.5 % Normal 30.5-36.0 [facility] Comment on above: Performed By: #### L [id number] ####Sales Promotion Manager: MICKIE ASHER ([phone])[facility])[address] [place] [address] MCV (RBC) [Entitic vol] 94.4 fL Normal 77.0-99.0 [facility] Comment on above: Performed By: #### L [id number] ####Sales Promotion Manager: MICKIE ASHER ([phone])[facility])[address] [place] [address] Monocytes (Bld) [#/Vol] 0.8 10*3/uL Normal 0.0-0.9 [facility] Comment on above: Performed By: #### L [id number] ####Sales Promotion Manager: MICKIE ASHER ([phone])[facility])[address] [place] [address] Monocytes/100 WBC (Bld) 5.0 % Normal 5.0-13.0 [facility] Comment on above: Performed By: #### L [id number] ####Sales Promotion Manager: MICKIE ASHER ([phone])[facility])[address] [place] [address] NEUTROPHILS ABSOLUTE 13.9 10*3/uL High 1.8-7.5 [facility] Comment on above: Performed By: #### L [id number] ####Sales Promotion Manager: MICKIE ASHER ([phone])[facility] ([facility])[address] [place] [address] Neutrophils/100 WBC (Bld) 86.0 % High 38.0-82.0 [facility] Comment on above: Performed By: #### L [id number] ####Sales Promotion Manager: MICKIE ASHER ([phone])[facility] ([facility])[address] [place] [address] NRBC 0.0 /100 WBCs Normal 0.0-2.0 [facility] Comment on above: Performed By: #### L [id number] ####Sales Promotion Manager: MICKIE ASHER ([phone])[facility] ([facility])[address] [place] [address] Platelet mean volume (Bld) [Entitic vol] 9.8 fL Normal 9.0-12.7 [facility] Comment on above: Performed By: #### L [id number] ####Sales Promotion Manager: MICKIE ASHER ([phone])[facility] ([facility])[address] [place] [address] [place] Platelets (Bld) [#/Vol] 494 10*3/uL High 140-440 [facility] Comment on above: Performed By: #### L [id number] ####Sales Promotion Manager: MICKIE ASHER ([phone])[facility] ([facility])[address] [place] [address] [place] RBC (Bld) [#/Vol] 2.69 10*6/uL Low 4.40-5.90 [facility] Comment on above: Performed By: #### L [id number] ####Sales Promotion Manager: MICKIE ASHER ([phone])[facility] ([facility])[address] [place] [address] [place] WBC (Bld) [#/Vol] 16.1 10*3/uL High 3.6-10.7 [facility] Comment on above: Performed By: #### L [id number] ####Sales Promotion Manager: MICKIE ASHER ([phone])[facility] ([facility])[address] [place] [address] Progress Noteon 12-18-2024 Progress Note Normal [facility] [id number] 12-17-2024 [id number] Normal [facility] 30on 12-17-2024 30 Normal [facility] [id number] 12-17-2024 [id number] Normal [facility] APTTon 12-17-2024 aPTT Coag (Bld) [Time] 52.1 s High 20.0-30.5 [facility] Comment on above: Result Comment: AMANUEL [place] COMMENTS:NOTE: The therapeutic time for Heparin anticoagulation, based on Xa activity inhibition, is an APTT of 46-80 seconds. Performed By: #### L [id number] ####Sales Promotion Manager: MICKIE ASHER ([phone])[facility] ([facility])[address] [place] [address] Anesthesia Noteon 12-17-2024 Anesthesia Note Normal [facility] Anesthesia Note Normal [facility] BASIC METABOLIC PANELon 07 Anion gap [Moles/Vol] 6 mmol/L Normal 3-13 [facility] Comment on above: Performed By: #### L [id number] ####Sales Promotion Manager: MICKIE ASHER ([phone])[facility] ([facility])[address] [place] [address] Calcium [Mass/Vol] 8.2 mg/dL Low 8.8-10.0 [facility] Comment on above: Performed By: #### L [id number] ####Sales Promotion Manager: MICKIE ASHER ([phone])[facility] ([facility])[address] [place] [address] Chloride [Moles/Vol] 103 mmol/L Normal 98-107 [facility] Comment on above: Performed By: #### L [id number] ####Sales Promotion Manager: MICKIE ASHER ([phone])[facility] ([facility])[address] [place] [address] CO2 [Moles/Vol] 28 mmol/L Normal 23-31 [facility] Comment on above: Performed By: #### L [id number] ####Sales Promotion Manager: MICKIE ASHER ([phone])[facility] ([facility])[address] [place] [address] Creatinine [Mass/Vol] 0.65 mg/dL Low 0.72-1.25 [facility] Comment on above: Performed By: #### L [id number] ####Sales Promotion Manager: MICKIE ASHER ([phone])[facility] ([facility])[address] [place] [address] GLOMERULAR FILTRATION RATE ML/MIN/1.73 SQ M.PREDICTED >90.0 Normal >60.0 [facility] Comment on above: Result Comment: Calc ulation based on the Chronic Kidney Disease Epidemiology Collaboration (CKD-EPI) equation refit without adjustment for race Performed By: #### L [id number] ####Sales Promotion Manager: MICKIE ASHER ([phone])[facility] ([facility])[address] [place] [address] Glucose [Mass/Vol] 106 mg/dL Normal 82-115 [facility] Comment on above: Performed By: #### L [id number] ####Sales Promotion Manager: MICKIE ASHER ([phone])[facility])[address] [place] [address] Potassium [Moles/Vol] 3.7 mmol/L Normal 3.5-5.1 [facility] Comment on above: Result Comment: [facility] potassium values may be up to 0.5 mmol/L lower than serum values. Performed By: #### L [id number] ####Sales Promotion Manager: MICKIE ASHER ([phone])[facility] ([facility])[address] [place] [address] Sodium [Moles/Vol] 137 mmol/L Normal 136-145 [facility] Comment on above: Performed By: #### L [id number] ####Sales Promotion Manager: MICKIE ASHER ([phone])[facility] ([facility])[address] [place] [address] Urea nitrogen [Mass/Vol] 15 mg/dL Normal 9-23 [facility] Comment on above: Performed By: #### L [id number] ####Sales Promotion Manager: MICKIE ASHER ([phone])[facility])[address] [place] [address] CBC WITH AUTO DIFFERENTIALon 12-17-2024 Basophils (Bld) [#/Vol] 0.1 10*3/uL Normal 0.0-0.2 [facility] Comment on above: Performed By: #### L [id number] ####Sales Promotion Manager: MICKIE ASHER ([phone])[facility])[address] [place] [address] Basophils/100 WBC (Bld) 0.4 % Normal 0.0-2.0 [facility] Comment on above: Performed By: #### L [id number] ####Sales Promotion Manager: MICKIE ASHER ([phone])[facility])[address] [place] [address] Eosinophils (Bld) [#/Vol] 0.3 10*3/uL Normal 0.0-0.5 [facility] Comment on above: Performed By: #### L [id number] ####Sales Promotion Manager: MICKIE ASHER ([phone])[facility])[address] [place] [address] Eosinophils/100 WBC (Bld) 2.1 % Normal 0.0-6.0 [facility] Comment on above: Performed By: #### L [id number] ####Sales Promotion Manager: MICKIE ASHER ([phone])[facility])[address] [place] [address] Erythrocyte distribution width (RBC) [Ratio] 15.1 % High 11.5-15.0 [facility] Comment on above: Performed By: #### L [id number] ####Sales Promotion Manager: MICKIE ASHER ([phone])[facility])[address] [place] [address] Hematocrit (Bld) [Volume fraction] 27.2 % Low 40.0-52.0 [facility] Comment on above: Performed By: #### L [id number] ####Sales Promotion Manager: MICKIE ASHER ([phone])[facility])[address] [place] [address] Hemoglobin (Bld) [Mass/Vol] 8.6 g/dL Low 13.0-18.0 [facility] Comment on above: Performed By: #### L [id number] ####Sales Promotion Manager: MICKIE ASHER ([phone])[facility])[address] [place] [address] IMMATURE GRANS % 3.0 % High 0.0-2.0 [facility] Comment on above: Performed By: #### L [id number] ####Sales Promotion Manager: MICKIE ASHER ([phone])[facility])[address] [place] [address] IMMATURE GRANS ABSOLUTE 0.4 10*3/uL High <0.1 [facility] Comment on above: Performed By: #### L [id number] ####Sales Promotion Manager: MICKIE ASHER ([phone])[facility])[address] [place] [address] Lymphocytes (Bld) [#/Vol] 1.5 10*3/uL Normal 1.0-4.3 [facility] Comment on above: Performed By: #### L [id number] ####Sales Promotion Manager: MICKIE ASHER ([phone])[facility])[address] [place] [address] Lymphocytes/100 WBC (Bld) 12.4 % Low 15.0-45.0 [facility] Comment on above: Performed By: #### L [id number] ####Sales Promotion Manager: MICKIE ASHER ([phone])[facility])[address] [place] [address] MCH (RBC) [Entitic mass] 29.7 pg Normal 26.0-34.0 [facility] Comment on above: Performed By: #### L [id number] ####Sales Promotion Manager: MICKIE ASHER ([phone])[facility] ([facility])[address] [place] [address] MCHC 31.6 % Normal 30.5-36.0 [facility] Comment on above: Performed By: #### L [id number] ####Sales Promotion Manager: MICKIE ASHER ([phone])[facility] ([facility])[address] [place] [address] MCV (RBC) [Entitic vol] 93.8 fL Normal 77.0-99.0 [facility] Comment on above: Performed By: #### L [id number] ####Sales Promotion Manager: MICKIE ASHER ([phone])[facility])[address] [place] [address] Monocytes (Bld) [#/Vol] 0.8 10*3/uL Normal 0.0-0.9 [facility] Comment on above: Performed By: #### L [id number] ####Sales Promotion Manager: MICKIE ASHER ([phone])[facility] ([facility])[address] [place] [address] Monocytes/100 WBC (Bld) 6.3 % Normal 5.0-13.0 [facility] Comment on above: Performed By: #### L [id number] ####Sales Promotion Manager: MICKIE ASHER ([phone])[facility])[address] [place] [address] NEUTROPHILS ABSOLUTE 9.2 10*3/uL High 1.8-7.5 [facility] Comment on above: Performed By: #### L [id number] ####Sales Promotion Manager: MICKIE ASHER ([phone])[facility])[address] [place] [address] Neutrophils/100 WBC (Bld) 75.8 % Normal 38.0-82.0 [facility] Comment on above: Performed By: #### L [id number] ####Sales Promotion Manager: MICKIE ASHER ([phone])[facility] ([facility])[address] [place] [address] NRBC 0.2 /100 WBCs Normal 0.0-2.0 [facility] Comment on above: Performed By: #### L [id number] ####Sales Promotion Manager: MICKIE ASHER ([phone])[facility])[address] [place] [address] Platelet mean volume (Bld) [Entitic vol] 10.0 fL Normal 9.0-12.7 [facility] Comment on above: Performed By: #### L [id number] ####Sales Promotion Manager: MICKIE ASHER ([phone])[facility])[address] [place] [address] Platelets (Bld) [#/Vol] 486 10*3/uL High 140-440 [facility] Comment on above: Performed By: #### L [id number] ####Sales Promotion Manager: MICKIE ASHER ([phone])[facility] ([facility])[address] [place] [address] RBC (Bld) [#/Vol] 2.90 10*6/uL Low 4.40-5.90 [facility] Comment on above: Performed By: #### L [id number] ####Sales Promotion Manager: MICKIE ASHER ([phone])[facility])[address] [place] [address] WBC (Bld) [#/Vol] 12.2 10*3/uL High 3.6-10.7 [facility] Comment on above: Performed By: #### L [id number] ####Sales Promotion Manager: MICKIE ASHER ([phone])[facility])[address] [place] [address] Nursing Noteon 12-17-2024 Nursing Note Report called to Adri Arana RN. Normal [facility] Nursing Note updated via telephone. Normal [facility] Nursing Note Pt to or. Normal [facility] Op Noteon 12-17-2024 Op Note Normal [facility] Progress Noteon 12-17-2024 Progress Note Normal [facility] Progress Note Normal [facility] Progress Note Normal [facility] [id number] 12-16-2024 [id number] Normal [facility] APTTon 12-16-2024 aPTT Coag (Bld) [Time] 49.8 s High 20.0-30.5 [facility] Comment on above: Result Comment: AMANUEL [place] COMMENTS:NOTE: The therapeutic time for Heparin anticoagulation, based on Xa activity inhibition, is an APTT of 46-80 seconds. Performed By: #### L [id number] ####Sales Promotion Manager: MICKIE ASHER ([phone])[facility] ([facility])[address] [place] [address] BASIC METABOLIC PANELon Anion gap [Moles/Vol] 7 mmol/L Normal 3-13 [facility] Comment on above: Performed By: #### L [id number] ####Sales Promotion Manager: MICKIE ASHER ([phone])[facility] ([facility])[address] [place] [address] Calcium [Mass/Vol] 8.2 mg/dL Low 8.8-10.0 [facility] Comment on above: Performed By: #### L [id number] ####Sales Promotion Manager: MICKIE ASHER ([phone])[facility] ([facility])[address] [place] [address] [place] Chloride [Moles/Vol] 103 mmol/L Normal 98-107 [facility] Comment on above: Performed By: #### L [id number] ####Sales Promotion Manager: MICKIE ASHER ([phone])[facility] ([facility])[address] [place] [address] [place] CO2 [Moles/Vol] 30 mmol/L Normal 23-31 [facility] Comment on above: Performed By: #### L [id number] ####Sales Promotion Manager: MICKIE ASHER ([phone])[facility] ([facility])[address] [place] [address] Creatinine [Mass/Vol] 0.68 mg/dL Low 0.72-1.25 [facility] Comment on above: Performed By: #### L AB15 ####Sales Promotion Manager: MICKIE ASHER ([phone])[facility])[address] [place] [address] GLOMERULAR FILTRATION RATE ML/MIN/1.73 SQ M.PREDICTED >90.0 Normal >60.0 [facility] Comment on above: Result Comment: Calc ulation based on the Chronic Kidney Disease Epidemiology Collaboration (CKD-EPI) equation refit without adjustment for race Performed By: #### L [id number] ####Sales Promotion Manager: MICKIE ASHER ([phone])[facility])[address] [place] [address] Glucose [Mass/Vol] 95 mg/dL Normal 82-115 [facility] Comment on above: Performed By: #### L AB15 ####Sales Promotion Manager: MICKIE ASHER ([phone])[address] Potassium [Moles/Vol] 3.9 mmol/L Normal 3.5-5.1 [facility] Comment on above: Result Comment: [facility] potassium values may be up to 0.5 mmol/L lower than serum values. Performed By: #### L AB15 ####Sales Promotion Manager: IMCKIE ASHER ([phone])[facility])[address] [place] [address] Sodium [Moles/Vol] 140 mmol/L Normal 136-145 [facility] Comment on above: Performed By: #### L [id number] ####Sales Promotion Manager: MICKIE ASHER ([phone])[facility])[address] [place] [address] [place] Urea nitrogen [Mass/Vol] 15 mg/dL Normal 9-23 [facility] Comment on above: Performed By: #### L [id number] ####Sales Promotion Manager: MICKIE ASHER ([phone])[facility])[address] [place] [address] BLOOD TYPE AND SCREEN GELon 12-16-2024 ABO GROUPING A Normal [facility] Comment on above: Performed By: #### L [id number] ####Sales Promotion Manager: MICKIE ASHER ([phone])[facility] [place] [address] RH TYPE IN BLOOD Positive Normal [facility] Comment on above: Performed By: #### L [id number] ####Sales Promotion Manager: IMCKIE ASHER ([phone])[facility] [place] [address] CBC WITH AUTO DIFFERENTIALon 12-16-2024 Basophils (Bld) [#/Vol] 0.1 10*3/uL Normal 0.0-0.2 [facility] Comment on above: Performed By: #### L [id number] ####Sales Promotion Manager: MICKIE ASHER ([phone])[facility] ([facility])[address] [place] [address] Basophils/100 WBC (Bld) 0.4 % Normal 0.0-2.0 [facility] Comment on above: Performed By: #### L [id number] ####Sales Promotion Manager: MICKIE ASHER ([phone])[facility] ([facility])[address] [place] [address] Eosinophils (Bld) [#/Vol] 0.2 10*3/uL Normal 0.0-0.5 [facility] Comment on above: Performed By: #### L [id number] ####Sales Promotion Manager: MICKIE ASHER ([phone])[facility] ([facility])[address] [place] [address] Eosinophils/100 WBC (Bld) 1.6 % Normal 0.0-6.0 [facility] Comment on above: Performed By: #### L [id number] ####Sales Promotion Manager: MICKIE ASHER ([phone])[facility] ([facility])[address] [place] [address] Erythrocyte distribution width (RBC) [Ratio] 14.9 % Normal 11.5-15.0 [facility] Comment on above: Performed By: #### L [id number] ####Sales Promotion Manager: MICKIE ASHER ([phone])[facility])[address] [place] [address] Hematocrit (Bld) [Volume fraction] 27.8 % Low 40.0-52.0 [facility] Comment on above: Performed By: #### L [id number] ####Sales Promotion Manager: MICKIE ASHER ([phone])[facility])[address] [place] [address] Hemoglobin (Bld) [Mass/Vol] 8.7 g/dL Low 13.0-18.0 [facility] Comment on above: Performed By: #### L [id number] ####Sales Promotion Manager: MICKIE ASHER ([phone])[facility])[address] [place] [address] IMMATURE GRANS % 2.4 % High 0.0-2.0 [facility] Comment on above: Performed By: #### L [id number] ####Sales Promotion Manager: MICKIE ASHER ([phone])[facility])[address] [place] [address] IMMATURE GRANS ABSOLUTE 0.3 10*3/uL High <0.1 [facility] Comment on above: Performed By: #### L [id number] ####Sales Promotion Manager: MICKIE ASHER ([phone])[facility])[address] [place] [address] Lymphocytes (Bld) [#/Vol] 1.2 10*3/uL Normal 1.0-4.3 [facility] Comment on above: Performed By: #### L [id number] ####Sales Promotion Manager: MICKIE ASHER ([phone])[facility])[address] [place] [address] Lymphocytes/100 WBC (Bld) 10.0 % Low 15.0-45.0 [facility] Comment on above: Performed By: #### L [id number] ####Sales Promotion Manager: MICKIE ASHER ([phone])[facility])[address] [place] [address] MCH (RBC) [Entitic mass] 29.8 pg Normal 26.0-34.0 [facility] Comment on above: Performed By: #### L [id number] ####Sales Promotion Manager: MICKIE ASHER ([phone])[facility])[address] [place] [address] MCHC 31.3 % Normal 30.5-36.0 [facility] Comment on above: Performed By: #### L [id number] ####Sales Promotion Manager: MICKIE ASHER ([phone])[facility] ([facility])[address] [place] [address] MCV (RBC) [Entitic vol] 95.2 fL Normal 77.0-99.0 [facility] Comment on above: Performed By: #### L [id number] ####Sales Promotion Manager: MICKIE ASHER ([phone])[facility])[address] [place] [address] Monocytes (Bld) [#/Vol] 0.8 10*3/uL Normal 0.0-0.9 [facility] Comment on above: Performed By: #### L [id number] ####Sales Promotion Manager: MICKIE ASHER ([phone])[facility])[address] [place] [address] Monocytes/100 WBC (Bld) 6.1 % Normal 5.0-13.0 [facility] Comment on above: Performed By: #### L [id number] ####Sales Promotion Manager: MICKIE ASHER ([phone])[facility])[address] [place] [address] NEUTROPHILS ABSOLUTE 9.8 10*3/uL High 1.8-7.5 [facility] Comment on above: Performed By: #### L [id number] ####Sales Promotion Manager: MICKIE ASHER ([phone])[facility])[address] [place] [address] Neutrophils/100 WBC (Bld) 79.5 % Normal 38.0-82.0 [facility] Comment on above: Performed By: #### L [id number] ####Sales Promotion Manager: MICKIE ASHER ([phone])[facility])[address] [place] [address] NRBC 0.2 /100 WBCs Normal 0.0-2.0 [facility] Comment on above: Performed By: #### L [id number] ####Sales Promotion Manager: MICKIE ASHER ([phone])[facility])[address] [place] [address] Platelet mean volume (Bld) [Entitic vol] 10.2 fL Normal 9.0-12.7 [facility] Comment on above: Performed By: #### L [id number] ####Sales Promotion Manager: MICKIE ASHER ([phone])[facility])[address] [place] [address] Platelets (Bld) [#/Vol] 463 10*3/uL High 140-440 [facility] Comment on above: Performed By: #### L [id number] ####Sales Promotion Manager: MICKIE ASHER ([phone])[facility])[address] [place] [address] RBC (Bld) [#/Vol] 2.92 10*6/uL Low 4.40-5.90 [facility] Comment on above: Performed By: #### L [id number] ####Sales Promotion Manager: MICKIE ASHER ([phone])[facility])[address] [place] [address] WBC (Bld) [#/Vol] 12.3 10*3/uL High 3.6-10.7 [facility] Comment on above: Performed By: #### L [id number] ####Sales Promotion Manager: MICKIE ASHER ([phone])[facility])[address] [place] [address] Progress Noteon 12-16-2024 Progress Note Normal [facility] Progress Note Normal [facility] Progress Note Rt. NATASHA drain removed. Patient tolerated well. Normal [facility] Progress Note Normal [facility] 30on 12-15-2024 30 Normal [facility] APTTon 12-15-2024 aPTT Coag (Bld) [Time] 55.1 s High 20.0-30.5 [facility] Comment on above: Result Comment: AMANUEL [place] COMMENTS:NOTE: The therapeutic time for Heparin anticoagulation, based on Xa activity inhibition, is an APTT of 46-80 seconds. Performed By: #### L [id number] ####Sales Promotion Manager: MICKIE ASHER ([phone])[facility] ([facility])[address] [place] [address] BASIC METABOLIC PANELon 07 Anion gap [Moles/Vol] 7 mmol/L Normal 3-13 [facility] Comment on above: Performed By: #### L [id number] ####Sales Promotion Manager: MICKIE ASHER ([phone])[facility] ([facility])[address] [place] [address] Calcium [Mass/Vol] 8.4 mg/dL Low 8.8-10.0 [facility] Comment on above: Performed By: #### L [id number] ####Sales Promotion Manager: MICKIE ASHER ([phone])[facility] ([facility])[address] [place], [place] [address] Chloride [Moles/Vol] 100 mmol/L Normal 98-107 [facility] Comment on above: Performed By: #### L AB15 ####Sales Promotion Manager: MICKIE ASHER ([phone])[facility] ([facility])[address] [place] [address] CO2 [Moles/Vol] 29 mmol/L Normal 23-31 [facility] Comment on above: Performed By: #### L AB15 ####Sales Promotion Manager: MICKIE ASHER ([phone])[facility])[address] [place] [address] Creatinine [Mass/Vol] 0.68 mg/dL Low 0.72-1.25 [facility] Comment on above: Performed By: #### L AB15 ####Sales Promotion Manager: MICKIE ASHER ([phone])[facility])[address] [place] [address] GLOMERULAR FILTRATION RATE ML/MIN/1.73 SQ M.PREDICTED >90.0 Normal >60.0 [facility] Comment on above: Result Comment: Calc ulation based on the Chronic Kidney Disease Epidemiology Collaboration (CKD-EPI) equation refit without adjustment for race Performed By: #### L AB15 ####Sales Promotion Manager: MICKIE ASHER ([phone])[facility])[address] [place] [address] Glucose [Mass/Vol] 119 mg/dL High 82-115 [facility] Comment on above: Performed By: #### L AB15 ####Sales Promotion Manager: MICKIE ASHER ([phone])[facility])[address] [place] [address] Potassium [Moles/Vol] 4.1 mmol/L Normal 3.5-5.1 [facility] Comment on above: Result Comment: [facility] potassium values may be up to 0.5 mmol/L lower than serum values. Performed By: #### L AB15 ####Sales Promotion Manager: MICKIE ASHER ([phone])[facility])[address] [place] [address] Sodium [Moles/Vol] 136 mmol/L Normal 136-145 [facility] Comment on above: Performed By: #### L AB15 ####Sales Promotion Manager: MICKIE ASHER ([phone])[facility])[address] [place] [address] Urea nitrogen [Mass/Vol] 24 mg/dL High 9-23 [facility] Comment on above: Performed By: #### L AB15 ####Sales Promotion Manager: MICKIE ASHER ([phone])[facility])[address] [place] [address] CBC WITH AUTO DIFFERENTIALon 12-15-2024 Basophils (Bld) [#/Vol] 0.0 10*3/uL Normal 0.0-0.2 [facility] Comment on above: Performed By: #### L [id number] ####Sales Promotion Manager: MICKIE ASHER ([phone])[facility] ([facility])[address] [place] [address] Basophils/100 WBC (Bld) 0.2 % Normal 0.0-2.0 [facility] Comment on above: Performed By: #### L [id number] ####Sales Promotion Manager: MICKIE ASHER ([phone])[facility])[address] [place] [address] Eosinophils (Bld) [#/Vol] 0.1 10*3/uL Normal 0.0-0.5 [facility] Comment on above: Performed By: #### L [id number] ####Sales Promotion Manager: MICKIE ASHER ([phone])[facility])[address] [place] [address] Eosinophils/100 WBC (Bld) 0.5 % Normal 0.0-6.0 [facility] Comment on above: Performed By: #### L [id number] ####Sales Promotion Manager: MICKIE ASHER ([phone])[facility])[address] [place] [address] Erythrocyte distribution width (RBC) [Ratio] 14.8 % Normal 11.5-15.0 [facility] Comment on above: Performed By: #### L [id number] ####Sales Promotion Manager: MICKIE ASHER ([phone])[facility])[address] [place] [address] Hematocrit (Bld) [Volume fraction] 26.4 % Low 40.0-52.0 [facility] Comment on above: Performed By: #### L [id number] ####Sales Promotion Manager: MICKIE ASHER ([phone])[facility])[address] [place] [address] Hemoglobin (Bld) [Mass/Vol] 8.4 g/dL Low 13.0-18.0 [facility] Comment on above: Performed By: #### L [id number] ####Sales Promotion Manager: MICKIE [phone])[facility] ([facility])[address] [place] [address] IMMATURE GRANS % 2.5 % High 0.0-2.0 [facility] Comment on above: Performed By: #### L [id number] ####Sales Promotion Manager: MICKIE ASHER ([phone])[facility])[address] [place] [address] IMMATURE GRANS ABSOLUTE 0.4 10*3/uL High <0.1 [facility] Comment on above: Performed By: #### L [id number] ####Sales Promotion Manager: MICKIE ASHER ([phone])[facility])[address] [place] [address] Lymphocytes (Bld) [#/Vol] 1.6 10*3/uL Normal 1.0-4.3 [facility] Comment on above: Performed By: #### L [id number] ####Sales Promotion Manager: MICKIE ASHER ([phone])[facility])[address] [place] [address] Lymphocytes/100 WBC (Bld) 9.3 % Low 15.0-45.0 [facility] Comment on above: Performed By: #### L [id number] ####Sales Promotion Manager: MICKIE ASHER ([phone])[facility])[address] [place] [address] MCH (RBC) [Entitic mass] 30.1 pg Normal 26.0-34.0 [facility] Comment on above: Performed By: #### L [id number] ####Sales Promotion Manager: MICKIE ASHER ([phone])[facility])[address] [place] [address] MCHC 31.8 % Normal 30.5-36.0 [facility] Comment on above: Performed By: #### L [id number] ####Sales Promotion Manager: MICKIE ASHER ([phone])[facility])[address] [place] [address] MCV (RBC) [Entitic vol] 94.6 fL Normal 77.0-99.0 [facility] Comment on above: Performed By: #### L [id number] ####Sales Promotion Manager: MICKIE ASHER ([phone])[facility])[address] [place] [address] Monocytes (Bld) [#/Vol] 1.0 10*3/uL High 0.0-0.9 [facility] Comment on above: Performed By: #### L [id number] ####Sales Promotion Manager: MICKIE ASHER ([phone])[facility] ([facility])[address] [place] [address] Monocytes/100 WBC (Bld) 6.1 % Normal 5.0-13.0 [facility] Comment on above: Performed By: #### L [id number] ####Sales Promotion Manager: MICKIE ASHER ([phone])[facility])[address] [place] [address] NEUTROPHILS ABSOLUTE 13.6 10*3/uL High 1.8-7.5 [facility] Comment on above: Performed By: #### L [id number] ####Sales Promotion Manager: MICKIE ASHER ([phone])[facility])[address] [place] [address] Neutrophils/100 WBC (Bld) 81.4 % Normal 38.0-82.0 [facility] Comment on above: Performed By: #### L [id number] ####Sales Promotion Manager: MICKIE ASHER ([phone])[facility])[address] [place] [address] NRBC 0.2 /100 WBCs Normal 0.0-2.0 [facility] Comment on above: Performed By: #### L [id number] ####Sales Promotion Manager: MICKIE ASHER ([phone])[facility])[address] [place] [address] Platelet mean volume (Bld) [Entitic vol] 10.4 fL Normal 9.0-12.7 [facility] Comment on above: Performed By: #### L [id number] ####Sales Promotion Manager: MICKIE ASHER ([phone])[facility] ([facility])[address] [place] [address] Platelets (Bld) [#/Vol] 412 10*3/uL Normal 140-440 [facility] Comment on above: Performed By: #### L [id number] ####Sales Promotion Manager: MICKIE ASHER ([phone])[facility] ([facility])[address] [place] [address] RBC (Bld) [#/Vol] 2.79 10*6/uL Low 4.40-5.90 [facility] Comment on above: Performed By: #### L [id number] ####Sales Promotion Manager: MICKIE ASHER ([phone])[facility] ([facility])[address] [place] [address] WBC (Bld) [#/Vol] 16.7 10*3/uL High 3.6-10.7 [facility] Comment on above: Performed By: #### L [id number] ####Sales Promotion Manager: MICKIE ASHER ([phone])[facility])[address] [place] [address] Progress Noteon 12-15-2024 Progress Note Lumbar clark removed without complication and pt tolerated well. Incision is C/D/I with no sign of infection. Pt ot follow up with Dr. Kilgore in about 3 months. Olivia Jansen, MANAGER INVENTORY MANAGEMENT - REJECTOR [facility] Progress Note Normal [facility] 30on 12-14-2024 30 Normal [facility] [id number] 12-14-2024 [id number] Normal [facility] APTTon 12-14-2024 aPTT Coag (Bld) [Time] 66.3 s High 20.0-30.5 [facility] Comment on above: Result Comment: ORDE R COMMENTS:NOTE: The therapeutic time for Heparin anticoagulation, based on Xa activity inhibition, is an APTT of 46-80 seconds. Performed By: #### L [id number] ####Sales Promotion Manager: MICKIE [phone])[facility] [place] [address] BASIC METABOLIC PANELon 06-3 0-2024 Anion gap [Moles/Vol] 9 mmol/L Normal 3-13 [facility] Comment on above: Performed By: #### L AB62, LAB15 ####Sales Promotion Manager: MICKIE ASHER ([phone])[facility] ([facility])[address] [place] [address] Calcium [Mass/Vol] 8.4 mg/dL Low 8.8-10.0 [facility] Comment on above: Performed By: #### L ABEveline, LAB15 ####Sales Promotion Manager: MICKIE ASHER ([phone])[facility] ([facility])[address] [place] [address] Chloride [Moles/Vol] 101 mmol/L Normal 98-107 [facility] Comment on above: Performed By: #### L AB62, LAB15 ####Sales Promotion Manager: MICKIE ASHER ([phone])[facility])[address] [place] [address] CO2 [Moles/Vol] 26 mmol/L Normal 23-31 [facility] Comment on above: Performed By: #### L AB62, LAB15 ####Sales Promotion Manager: MICKIE ASHER ([phone])[facility] ([facility])[address] [place] [address] Creatinine [Mass/Vol] 0.72 mg/dL Normal 0.72-1.25 [facility] Comment on above: Performed By: #### L AB62, LAB15 ####Sales Promotion Manager: MICKIE ASHER ([phone])[facility])[address] [place] [address] GLOMERULAR FILTRATION RATE ML/MIN/1.73 SQ M.PREDICTED >90.0 Normal >60.0 [facility] Comment on above: Result Comment: Calc ulation based on the Chronic Kidney Disease Epidemiology Collaboration (CKD-EPI) equation refit without adjustment for race Performed By: #### L AB62, LAB15 ####Sales Promotion Manager: MICKIE ASHER ([phone])[facility] ([facility])[address] [place] [address] Glucose [Mass/Vol] 175 mg/dL High 82-115 [facility] Comment on above: Performed By: #### L AB62, LAB15 ####Sales Promotion Manager: MICKIE ASHER ([phone])[facility])[address] [place] [address] Potassium [Moles/Vol] 4.2 mmol/L Normal 3.5-5.1 [facility] Comment on above: Result Comment: [facility] potassium values may be up to 0.5 mmol/L lower than serum values. Performed By: #### L SHAMA, LAB15 ####Sales Promotion Manager: MICKIE ASHER ([phone])[facility])[address] [place] [address] Sodium [Moles/Vol] 136 mmol/L Normal 136-145 [facility] Comment on above: Performed By: #### Xavi SESAY, LAB15 ####Sales Promotion Manager: MICKIE ASHER ([phone])[facility])[address] [place] [address] Urea nitrogen [Mass/Vol] 20 mg/dL Normal 9-23 [facility] Comment on above: Performed By: #### L AB62, LAB15 ####Sales Promotion Manager: MICKIE ASHER ([phone])[facility])[address] [place] [address] CBC WITH AUTO DIFFERENTIALon 12-14-2024 Basophils (Bld) [#/Vol] 0.0 10*3/uL Normal 0.0-0.2 [facility] Comment on above: Performed By: #### L [id number] ####Sales Promotion Manager: MICKIE ASHER ([phone])[facility])[address] [place] [address] Basophils/100 WBC (Bld) 0.1 % Normal 0.0-2.0 [facility] Comment on above: Performed By: #### L [id number] ####Sales Promotion Manager: MICKIE ASHER ([phone])[facility])[address] [place] [address] Eosinophils (Bld) [#/Vol] 0.0 10*3/uL Normal 0.0-0.5 [facility] Comment on above: Performed By: #### L [id number] ####Sales Promotion Manager: MICKIE ASHER ([phone])[address] Eosinophils/100 WBC (Bld) 0.0 % Normal 0.0-6.0 [facility] Comment on above: Performed By: #### L [id number] ####Sales Promotion Manager: MICKIE ASHER ([phone])[address] Erythrocyte distribution width (RBC) [Ratio] 14.6 % Normal 11.5-15.0 [facility] Comment on above: Performed By: #### L [id number] ####Sales Promotion Manager: MICKIE ASHER ([phone])[address] Hematocrit (Bld) [Volume fraction] 27.2 % Low 40.0-52.0 [facility] Comment on above: Performed By: #### L [id number] ####Sales Promotion Manager: MICKIE ASHER ([phone])[address] Hemoglobin (Bld) [Mass/Vol] 8.7 g/dL Low 13.0-18.0 [facility] Comment on above: Performed By: #### L [id number] ####Sales Promotion Manager: MICKIE ASHER ([phone])[address] IMMATURE GRANS % 1.3 % Normal 0.0-2.0 [facility] Comment on above: Performed By: #### L [id number] ####Sales Promotion Manager: MICKIE ASHER ([phone])[facility])[address] [place] [address] IMMATURE GRANS ABSOLUTE 0.3 10*3/uL High <0.1 [facility] Comment on above: Performed By: #### L [id number] ####Sales Promotion Manager: MICKIE ASHER ([phone])[facility])[address] [place] [address] Lymphocytes (Bld) [#/Vol] 0.8 10*3/uL Low 1.0-4.3 [facility] Comment on above: Performed By: #### L [id number] ####Sales Promotion Manager: MICKIE ASHER ([phone])[facility])[address] [place] [address] Lymphocytes/100 WBC (Bld) 3.6 % Low 15.0-45.0 [facility] Comment on above: Performed By: #### L [id number] ####Sales Promotion Manager: MICKIE ASHER ([phone])[facility])[address] [place] [address] MCH (RBC) [Entitic mass] 29.9 pg Normal 26.0-34.0 [facility] Comment on above: Performed By: #### L [id number] ####Sales Promotion Manager: MICKIE ASHER ([phone])[facility])[address] [place] [address] MCHC 32.0 % Normal 30.5-36.0 [facility] Comment on above: Performed By: #### L [id number] ####Sales Promotion Manager: MICKIE ASHER ([phone])[facility])[address] [place] [address] MCV (RBC) [Entitic vol] 93.5 fL Normal 77.0-99.0 [facility] Comment on above: Performed By: #### L [id number] ####Sales Promotion Manager: MICKIE ASHER ([phone])[facility])[address] [place] [address] Monocytes (Bld) [#/Vol] 1.1 10*3/uL High 0.0-0.9 [facility] Comment on above: Performed By: #### L [id number] ####Sales Promotion Manager: MICKIE ASHER ([phone])[facility] ([facility])[address] [place] [address] Monocytes/100 WBC (Bld) 5.4 % Normal 5.0-13.0 [facility] Comment on above: Performed By: #### L [id number] ####Sales Promotion Manager: MICKIE ASHER ([phone])[facility] ([facility])[address] [place] [address] NEUTROPHILS ABSOLUTE 18.5 10*3/uL High 1.8-7.5 [facility] Comment on above: Performed By: #### L [id number] ####Sales Promotion Manager: MICKIE ASHER ([phone])[facility] ([facility])[address] [place] [address] Neutrophils/100 WBC (Bld) 89.6 % High 38.0-82.0 [facility] Comment on above: Performed By: #### L [id number] ####Sales Promotion Manager: MICKIE ASHER ([phone])[facility] ([facility])[address] [place] [address] NRBC 0.0 /100 WBCs Normal 0.0-2.0 [facility] Comment on above: Performed By: #### L [id number] ####Sales Promotion Manager: MICKIE ASHER ([phone])[facility] ([facility])[address] [place] [address] Platelet mean volume (Bld) [Entitic vol] 10.4 fL Normal 9.0-12.7 [facility] Comment on above: Performed By: #### L [id number] ####Sales Promotion Manager: MICKIE ASHER ([phone])[facility] ([facility])[address] [place] [address] Platelets (Bld) [#/Vol] 342 10*3/uL Normal 140-440 [facility] Comment on above: Performed By: #### L [id number] ####Sales Promotion Manager: MICKIE ASHER ([phone])[facility])[address] [place] [address] RBC (Bld) [#/Vol] 2.91 10*6/uL Low 4.40-5.90 [facility] Comment on above: Performed By: #### L [id number] ####Sales Promotion Manager: MICKIE ASHER ([phone])[facility])[address] [place] [address] WBC (Bld) [#/Vol] 20.7 10*3/uL High 3.6-10.7 [facility] Comment on above: Performed By: #### L [id number] ####Sales Promotion Manager: MICKIE ASHER ([phone])[facility])[address] [place] [address] CKon 12-14-2024 CK [Catalytic activity/Vol] 7630 U/L High 30-185 [facility] Comment on above: Performed By: #### L AB62, LAB15 ####Sales Promotion Manager: MICKIE ASHER ([phone])[facility])[address] [place] [address] Progress Noteon 12-14-2024 Progress Note OCCUPATIONAL THERAPY [facility] Name/MRN: Ginger Weldon ([id number]) Date: 12/14/2024 Attempted a second time this PM, pt sleeping. Spoke with who reports discussion of possibe amputation . Will follow. Juan Arevalo, OT Normal [facility] Progress Note Normal [facility] Progress Note Normal [facility] Progress Note Normal [facility] Progress Note Normal [facility] [id number] 12-13-2024 [id number] Normal [facility] APTTon 12-13-2024 aPTT Coag (Bld) [Time] 51.2 s High 20.0-30.5 [facility] Comment on above: Result Comment: AMANUEL [place] COMMENTS:NOTE: The therapeutic time for Heparin anticoagulation, based on Xa activity inhibition, is an APTT of 46-80 seconds. Performed By: #### L [id number] ####Sales Promotion Manager: MICKIE ASHER ([phone])[facility] ([facility])[address] [place] [address] aPTT Coag (Bld) [Time] 47.9 s High 20.0-30.5 [facility] Comment on above: Result Comment: AMANUEL [place] COMMENTS:NOTE: The therapeutic time for Heparin anticoagulation, based on Xa activity inhibition, is an APTT of 46-80 seconds. Performed By: #### L [id number] ####Sales Promotion Manager: MICKIE ASHER ([phone])[facility] ([facility])[address] [place] [address] Anesthesia Noteon 12-13-2024 Anesthesia Note Normal [facility] Anesthesia Note Normal [facility] ECG 12-LEADon 12-13-2024 ECG 12-LEAD IMPRESSION: Sinus tachycardia Electronically Signed On 12-13-2024 06:57:47 EDT by Ran Oliveira Normal [facility] Nursing Noteon 12-13-2024 Nursing Note Pt fidgety, requires frequent reminding, otherwise pleasant, report called and transported to where family is in there room for him. Normal [facility] Nursing Note Pt returned from OR. He is awake and alert. Slightly confused about situation. Family at bedside. Call light in reach. Normal [facility] Nursing Note To OR. Family waiting in pt room. Normal [facility] Op Noteon 12-13-2024 Op Note [facility] Progress Noteon 12-13-2024 Progress Note PHYSICAL THERAPY [facility] Name/MRN: Ginger Weldon ([id number]) Date: 12/13/2024 Arrived to attempt therapy, patient in OR. Family member states he threw a clot. Reattempt at later date if appropriate. Stephanie Fulton ODD JOB WORKER [facility] Progress Note OCCUPATIONAL THERAPY [facility] Name/MRN: Ginger Weldon ([id number]) Date: 12/13/2024 Attempted, pt in OR. Will follow. Juan Arevalo, OT Normal [facility] Progress Note Normal [facility] APTTon 12-12-2024 aPTT Coag (Bld) [Time] 52.3 s High 20.0-30.5 [facility] Comment on above: Result Comment: AMANUEL R COMMENTS:NOTE: The therapeutic time for Heparin anticoagulation, based on Xa activity inhibition, is an APTT of 46-80 seconds. Performed By: #### L AB325 ####Sales Promotion Manager: MICKIE ASHER ([phone])[address] aPTT Coag (Bld) [Time] 51.3 s High 20.0-30.5 [facility] Comment on above: Result Comment: AMANUEL R COMMENTS:NOTE: The therapeutic time for Heparin anticoagulation, based on Xa activity inhibition, is an APTT of 46-80 seconds. Performed By: #### L AB325 ####Sales Promotion Manager: MICKIE ASHER ([phone])[facility])[address] [place] [address] aPTT Coag (Bld) [Time] 32.7 s High 20.0-30.5 [facility] Comment on above: Result Comment: AMANUEL R COMMENTS:NOTE: The therapeutic time for Heparin anticoagulation, based on Xa activity inhibition, is an APTT of 46-80 seconds. Performed By: #### L AB325 ####Sales Promotion Manager: MICKIE ASHER ([phone])[address] aPTT Coag (Bld) [Time] 51.0 s High 20.0-30.5 [facility] Comment on above: Result Comment: AMANUEL R COMMENTS:NOTE: The therapeutic time for Heparin anticoagulation, based on Xa activity inhibition, is an APTT of 46-80 seconds. Performed By: #### L AB325 ####Sales Promotion Manager: MICKEI ASHER ([phone])[facility])[address] [place] [address] BASIC METABOLIC PANELon 06-2 Anion gap [Moles/Vol] 13 mmol/L Normal 3-13 [facility] Comment on above: Performed By: #### L AB15, LAB62 ####Sales Promotion Manager: MICKIE ASHER ([phone])[facility] ([facility])[address] [place] [address] Calcium [Mass/Vol] 8.8 mg/dL Normal 8.8-10.0 [facility] Comment on above: Performed By: #### L AB15, LAB62 ####Sales Promotion Manager: MICKIE ASHER ([phone])[facility])[address] [place] [address] Chloride [Moles/Vol] 99 mmol/L Normal 98-107 [facility] Comment on above: Performed By: #### L AB15, LAB62 ####Sales Promotion Manager: MICKIE ASHER ([phone])[facility] ([facility])[address] [place] [address] CO2 [Moles/Vol] 24 mmol/L Normal 23-31 [facility] Comment on above: Performed By: #### L AB15, LAB62 ####Sales Promotion Manager: MICKIE ASHER ([phone])[facility] ([facility])[address] [place] [address] Creatinine [Mass/Vol] 0.93 mg/dL Normal 0.72-1.25 [facility] Comment on above: Performed By: #### L AB15, LAB62 ####Sales Promotion Manager: MICKIE ASHER ([phone])[facility] ([facility])[address] [place] [address] GLOMERULAR FILTRATION RATE ML/MIN/1.73 SQ M.PREDICTED >90.0 Normal >60.0 [facility] Comment on above: Result Comment: Calc ulation based on the Chronic Kidney Disease Epidemiology Collaboration (CKD-EPI) equation refit without adjustment for race Performed By: #### L AB15, LAB62 ####Sales Promotion Manager: MICKIE ASHER ([phone])[facility] [place] [address] [place] Glucose [Mass/Vol] 172 mg/dL High 82-115 [facility] Comment on above: Performed By: #### L AB15, LAB62 ####Sales Promotion Manager: MICKIE ASHER ([phone])[facility] ([facility])[address] [place] [address] Potassium [Moles/Vol] 4.0 mmol/L Normal 3.5-5.1 [facility] Comment on above: Result Comment: [facility] potassium values may be up to 0.5 mmol/L lower than serum values. Performed By: #### L AB15, LAB62 ####Sales Promotion Manager: MICKIE ASHER ([phone])[facility] ([facility])[address] [place] [address] Sodium [Moles/Vol] 136 mmol/L Normal 136-145 [facility] Comment on above: Performed By: #### L AB15, LAB62 ####Sales Promotion Manager: MICKIE ASHER ([phone])[facility])[address] [place] [address] Urea nitrogen [Mass/Vol] 29 mg/dL High 9-23 [facility] Comment on above: Performed By: #### L AB15, LAB62 ####Sales Promotion Manager: MICKIE ASHER ([phone])[facility] ([facility])[address] [place] [address] Anion gap [Moles/Vol] 9 mmol/L Normal 3-13 [facility] Comment on above: Performed By: #### L AB15, LAB62 ####Sales Promotion Manager: MICKIE ASHER ([phone])[facility])[address] [place] [address] Calcium [Mass/Vol] 8.5 mg/dL Low 8.8-10.0 [facility] Comment on above: Performed By: #### L AB15, LAB62 ####Sales Promotion Manager: MICKIE ASHER ([phone])[facility])[address] [place] [address] [place] Chloride [Moles/Vol] 100 mmol/L Normal 98-107 [facility] Comment on above: Performed By: #### L AB15, LAB62 ####Sales Promotion Manager: MICKIE ASHER ([phone])[facility] [place] [address] CO2 [Moles/Vol] 26 mmol/L Normal 23-31 [facility] Comment on above: Performed By: #### L AB15, LAB62 ####Sales Promotion Manager: MICKIE ASHER ([phone])[facility])[address] [place] [address] Creatinine [Mass/Vol] 0.79 mg/dL Normal 0.72-1.25 [facility] Comment on above: Performed By: #### L AB15, LAB62 ####Sales Promotion Manager: MICKIE ASHER ([phone])[facility])[address] [place] [address] GLOMERULAR FILTRATION RATE ML/MIN/1.73 SQ M.PREDICTED >90.0 Normal >60.0 [facility] Comment on above: Result Comment: Calc ulation based on the Chronic Kidney Disease Epidemiology Collaboration (CKD-EPI) equation refit without adjustment for race Performed By: #### L AB15, LAB62 ####Sales Promotion Manager: MICKIE ASHER ([phone])[facility])[address] [place] [address] Glucose [Mass/Vol] 126 mg/dL High 82-115 [facility] Comment on above: Performed By: #### L AB15, LAB62 ####Sales Promotion Manager: MICKEI ASHER ([phone])[facility])[address] [place] [address] Potassium [Moles/Vol] 3.8 mmol/L Normal 3.5-5.1 [facility] Comment on above: Result Comment: [facility] potassium values may be up to 0.5 mmol/L lower than serum values. Performed By: #### L AB15, LAB62 ####Sales Promotion Manager: MICKIE ASHER ([phone])[facility] ([facility])[address] [place] [address] Sodium [Moles/Vol] 135 mmol/L Low 136-145 [facility] Comment on above: Performed By: #### L AB15, LAB62 ####Sales Promotion Manager: MIKCIE ASHER ([phone])[facility] ([facility])[address] [place] [address] Urea nitrogen [Mass/Vol] 18 mg/dL Normal 9-23 [facility] Comment on above: Performed By: #### L AB15, LAB62 ####Sales Promotion Manager: MICKIE ASHER ([phone])[facility] ([facility])[address] [place] [address] BLOOD TYPE AND SCREEN GELon 12-12-2024 ABO GROUPING A Normal [facility] Comment on above: Performed By: #### L [id number] ####Sales Promotion Manager: MICKIE ASHER ([phone])[facility] ([facility] [place] [address] RH TYPE IN BLOOD Positive Normal [facility] Comment on above: Performed By: #### L [id number] ####Sales Promotion Manager: MICKIE ASHER ([phone])[facility] [place] [address] CBC WITH AUTO DIFFERENTIALon 12-12-2024 Basophils (Bld) [#/Vol] 0.1 10*3/uL Normal 0.0-0.2 [facility] Comment on above: Performed By: #### L [id number] ####Sales Promotion Manager: MICKIE ASHER ([phone])[facility] ([facility])[address] [place] [address] Basophils/100 WBC (Bld) 0.3 % Normal 0.0-2.0 [facility] Comment on above: Performed By: #### L [id number] ####Sales Promotion Manager: MICKIE ASHER ([phone])[facility] ([facility])[address] [place] [address] Eosinophils (Bld) [#/Vol] 0.1 10*3/uL Normal 0.0-0.5 [facility] Comment on above: Performed By: #### L [id number] ####Sales Promotion Manager: MICKIE [phone])[facility])[address] [place] [address] Eosinophils/100 WBC (Bld) 0.8 % Normal 0.0-6.0 [facility] Comment on above: Performed By: #### L [id number] ####Sales Promotion Manager: MICKIE ASHER ([phone])[facility])[address] [place] [address] Erythrocyte distribution width (RBC) [Ratio] 14.5 % Normal 11.5-15.0 [facility] Comment on above: Performed By: #### L [id number] ####Sales Promotion Manager: MICKIE ASHER ([phone])[facility])[address] [place] [address] Hematocrit (Bld) [Volume fraction] 30.2 % Low 40.0-52.0 [facility] Comment on above: Performed By: #### L [id number] ####Sales Promotion Manager: MICKIE ASHER ([phone])[facility])[address] [place] [address] Hemoglobin (Bld) [Mass/Vol] 9.9 g/dL Low 13.0-18.0 [facility] Comment on above: Performed By: #### L [id number] ####Sales Promotion Manager: MICKIE ASHER ([phone])[facility])[address] [place] [address] IMMATURE GRANS % 1.3 % Normal 0.0-2.0 [facility] Comment on above: Performed By: #### L [id number] ####Sales Promotion Manager: MICKIE ASHER ([phone])[facility])[address] [place] [address] IMMATURE GRANS ABSOLUTE 0.2 10*3/uL High <0.1 [facility] Comment on above: Performed By: #### L [id number] ####Sales Promotion Manager: MICKIE ASHER ([phone])[facility])[address] [place] [address] [place] Lymphocytes (Bld) [#/Vol] 1.2 10*3/uL Normal 1.0-4.3 [facility] Comment on above: Performed By: #### L [id number] ####Sales Promotion Manager: MICKIE ASHER ([phone])[facility])[address] [place] [address] Lymphocytes/100 WBC (Bld) 8.0 % Low 15.0-45.0 [facility] Comment on above: Performed By: #### L [id number] ####Sales Promotion Manager: MICKIE ASHER ([phone])[facility])[address] [place] [address] MCH (RBC) [Entitic mass] 30.1 pg Normal 26.0-34.0 [facility] Comment on above: Performed By: #### L [id number] ####Sales Promotion Manager: MICKIE ASHER ([phone])[facility])[address] [place] [address] MCHC 32.8 % Normal 30.5-36.0 [facility] Comment on above: Performed By: #### L [id number] ####Sales Promotion Manager: MICKIE ASHER ([phone])[facility])[address] [place] [address] MCV (RBC) [Entitic vol] 91.8 fL Normal 77.0-99.0 [facility] Comment on above: Performed By: #### L [id number] ####Sales Promotion Manager: MICKIE ASHER ([phone])[facility])[address] [place] [address] Monocytes (Bld) [#/Vol] 1.1 10*3/uL High 0.0-0.9 [facility] Comment on above: Performed By: #### L [id number] ####Sales Promotion Manager: MICKIE ASHER ([phone])[facility])[address] [place] [address] Monocytes/100 WBC (Bld) 7.5 % Normal 5.0-13.0 [facility] Comment on above: Performed By: #### L [id number] ####Sales Promotion Manager: MICKIE ASHER ([phone])[facility] ([facility])[address] [place] [address] NEUTROPHILS ABSOLUTE 11.8 10*3/uL High 1.8-7.5 [facility] Comment on above: Performed By: #### L [id number] ####Sales Promotion Manager: MICKIE ASHER ([phone])[facility] ([facility])[address] [place] [address] Neutrophils/100 WBC (Bld) 82.1 % High 38.0-82.0 [facility] Comment on above: Performed By: #### L [id number] ####Sales Promotion Manager: MICKIE ASHER ([phone])[facility] ([facility])[address] [place] [address] NRBC 0.0 /100 WBCs Normal 0.0-2.0 [facility] Comment on above: Performed By: #### L [id number] ####Sales Promotion Manager: MICKIE ASHER ([phone])[facility] ([facility])[address] [place] [address] Platelet mean volume (Bld) [Entitic vol] 10.5 fL Normal 9.0-12.7 [facility] Comment on above: Performed By: #### L [id number] ####Sales Promotion Manager: MICKIE ASHER ([phone])[facility] ([facility])[address] [place] [address] Platelets (Bld) [#/Vol] 350 10*3/uL Normal 140-440 [facility] Comment on above: Performed By: #### L [id number] ####Sales Promotion Manager: MICKIE ASHER ([phone])[facility] ([facility])[address] [place] [address] RBC (Bld) [#/Vol] 3.29 10*6/uL Low 4.40-5.90 [facility] Comment on above: Performed By: #### L [id number] ####Sales Promotion Manager: MICKIE ASHER ([phone])[facility])[address] [place] [address] WBC (Bld) [#/Vol] 14.4 10*3/uL High 3.6-10.7 [facility] Comment on above: Performed By: #### L [id number] ####Sales Promotion Manager: MICKIE ASHER ([phone])[facility])[address] [place] [address] Basophils (Bld) [#/Vol] 0.1 10*3/uL Normal 0.0-0.2 [facility] Comment on above: Performed By: #### L [id number] ####Sales Promotion Manager: MICKIE ASHER ([phone])[facility])[address] [place] [address] Basophils/100 WBC (Bld) 0.5 % Normal 0.0-2.0 [facility] Comment on above: Performed By: #### L [id number] ####Sales Promotion Manager: MICKIE ASHER ([phone])[facility])[address] [place] [address] Eosinophils (Bld) [#/Vol] 0.2 10*3/uL Normal 0.0-0.5 [facility] Comment on above: Performed By: #### L [id number] ####Sales Promotion Manager: MICKIE ASHER ([phone])[facility])[address] [place] [address] Eosinophils/100 WBC (Bld) 1.2 % Normal 0.0-6.0 [facility] Comment on above: Performed By: #### L [id number] ####Sales Promotion Manager: MICKIE ASHER ([phone])[facility])[address] [place] [address] Erythrocyte distribution width (RBC) [Ratio] 14.6 % Normal 11.5-15.0 [facility] Comment on above: Performed By: #### L [id number] ####Sales Promotion Manager: MICKIE ASHER ([phone])[facility])[address] [place] [address] Hematocrit (Bld) [Volume fraction] 32.3 % Low 40.0-52.0 [facility] Comment on above: Performed By: #### L [id number] ####Sales Promotion Manager: MICKIE ASHER ([phone])[facility])[address] [place] [address] Hemoglobin (Bld) [Mass/Vol] 10.4 g/dL Low 13.0-18.0 [facility] Comment on above: Performed By: #### L [id number] ####Sales Promotion Manager: MICKIE ASHER ([phone])[facility])[address] [place] [address] IMMATURE GRANS % 1.0 % Normal 0.0-2.0 [facility] Comment on above: Performed By: #### L [id number] ####Sales Promotion Manager: MICKIE ASHER ([phone])[facility])[address] [place] [address] IMMATURE GRANS ABSOLUTE 0.2 10*3/uL High <0.1 [facility] Comment on above: Performed By: #### L [id number] ####Sales Promotion Manager: MICKIE ASHER ([phone])[facility])[address] [place] [address] Lymphocytes (Bld) [#/Vol] 1.0 10*3/uL Normal 1.0-4.3 [facility] Comment on above: Performed By: #### L [id number] ####Sales Promotion Manager: MICKIE ASHER ([phone])[facility])[address] [place] [address] Lymphocytes/100 WBC (Bld) 6.9 % Low 15.0-45.0 [facility] Comment on above: Performed By: #### L [id number] ####Sales Promotion Manager: MICKIE ASHER ([phone])[facility])[address] [place] [address] MCH (RBC) [Entitic mass] 30.1 pg Normal 26.0-34.0 [facility] Comment on above: Performed By: #### L [id number] ####Sales Promotion Manager: MICKIE ASHER ([phone])[facility])[address] [place] [address] MCHC 32.2 % Normal 30.5-36.0 [facility] Comment on above: Performed By: #### L [id number] ####Sales Promotion Manager: MICKIE ASHER ([phone])[facility])[address] [place] [address] MCV (RBC) [Entitic vol] 93.4 fL Normal 77.0-99.0 [facility] Comment on above: Performed By: #### L [id number] ####Sales Promotion Manager: MICKIE ASHER ([phone])[facility])[address] [place] [address] Monocytes (Bld) [#/Vol] 1.1 10*3/uL High 0.0-0.9 [facility] Comment on above: Performed By: #### L [id number] ####Sales Promotion Manager: MICKIE ASHER ([phone])[facility])[address] [place] [address] Monocytes/100 WBC (Bld) 7.7 % Normal 5.0-13.0 [facility] Comment on above: Performed By: #### L [id number] ####Sales Promotion Manager: MICKIE ASHER ([phone])[facility])[address] [place] [address] NEUTROPHILS ABSOLUTE 12.1 10*3/uL High 1.8-7.5 [facility] Comment on above: Performed By: #### L [id number] ####Sales Promotion Manager: MICKIE ASHER ([phone])[facility])[address] [place] [address] Neutrophils/100 WBC (Bld) 82.7 % High 38.0-82.0 [facility] Comment on above: Performed By: #### L [id number] ####Sales Promotion Manager: MICKIE [phone])[facility] ([facility])[address] [place] [address] NRBC 0.0 /100 WBCs Normal 0.0-2.0 [facility] Comment on above: Performed By: #### L [id number] ####Sales Promotion Manager: MICKIE ASHER ([phone])[facility])[address] [place] [address] Platelet mean volume (Bld) [Entitic vol] 10.5 fL Normal 9.0-12.7 [facility] Comment on above: Performed By: #### L [id number] ####Sales Promotion Manager: MICKIE ASHER ([phone])[facility])[address] [place] [address] Platelets (Bld) [#/Vol] 317 10*3/uL Normal 140-440 [facility] Comment on above: Performed By: #### L [id number] ####Sales Promotion Manager: MICKIE ASHER ([phone])[facility] ([facility])[address] [place] [address] RBC (Bld) [#/Vol] 3.46 10*6/uL Low 4.40-5.90 [facility] Comment on above: Performed By: #### L [id number] ####Sales Promotion Manager: MICKIE ASHER ([phone])[facility])[address] [place] [address] WBC (Bld) [#/Vol] 14.7 10*3/uL High 3.6-10.7 [facility] Comment on above: Performed By: #### L [id number] ####Sales Promotion Manager: MICKIE ASHER ([phone])[facility])[address] [place] [address] CKon 12-12-2024 CK [Catalytic activity/Vol] 53103 U/L High 30-185 [facility] Comment on above: Performed By: #### L AB15, LAB62 ####Sales Promotion Manager: MICKIE ASHER ([phone])[facility])[address] [place] [address] CK [Catalytic activity/Vol] 46410 U/L High 30-185 [facility] Comment on above: Performed By: #### L AB15, LAB62 ####Sales Promotion Manager: MICKIE ASHER ([phone])[facility] ([facility])[address] [place] [address] Progress Noteon 12-12-2024 Progress Note Normal [facility] [id number] 12-11-2024 [id number] Normal [facility] [phone] Left message for spouse Claudia . [facility] [phone] [facility] APTTon 12-11-2024 aPTT Coag (Bld) [Time] 44.3 s High 20.0-30.5 [facility] Comment on above: Result Comment: AMANUEL [place] COMMENTS:NOTE: The therapeutic time for Heparin anticoagulation, based on Xa activity inhibition, is an APTT of 46-80 seconds. Performed By: #### L [id number] ####Sales Promotion Manager: MICKIE ASHER ([phone])[facility])[address] [place] [address] aPTT Coag (Bld) [Time] 48.7 s High 20.0-30.5 [facility] Comment on above: Result Comment: AMANUEL [place] COMMENTS:NOTE: The therapeutic time for Heparin anticoagulation, based on Xa activity inhibition, is an APTT of 46-80 seconds. Performed By: #### L [id number] ####Sales Promotion Manager: MICKIE ASHER ([phone])[facility] ([facility])[address] [place] [address] BASIC METABOLIC PANELon 06-2 Anion gap [Moles/Vol] 9 mmol/L Normal 3-13 [facility] Comment on above: Performed By: #### L AB15 ####Sales Promotion Manager: MICKIE ASHER ([phone])[facility])[address] [place] [address] Calcium [Mass/Vol] 8.3 mg/dL Low 8.8-10.0 [facility] Comment on above: Performed By: #### L AB15 ####Sales Promotion Manager: MICKIE ASHER ([phone])[facility])[address] [place] [address] Chloride [Moles/Vol] 101 mmol/L Normal 98-107 [facility] Comment on above: Performed By: #### L AB15 ####Sales Promotion Manager: MICKIE ASHER ([phone])[facility] ([facility])[address] [place] [address] CO2 [Moles/Vol] 25 mmol/L Normal 23-31 [facility] Comment on above: Performed By: #### L AB15 ####Sales Promotion Manager: MICKIE ASHER ([phone])[facility] ([facility])[address] [place] [address] Creatinine [Mass/Vol] 0.77 mg/dL Normal 0.72-1.25 [facility] Comment on above: Performed By: #### L AB15 ####Sales Promotion Manager: MICKIE ASHER ([phone])[facility] ([facility])[address] [place] [address] GLOMERULAR FILTRATION RATE ML/MIN/1.73 SQ M.PREDICTED >90.0 Normal >60.0 [facility] Comment on above: Result Comment: Calc ulation based on the Chronic Kidney Disease Epidemiology Collaboration (CKD-EPI) equation refit without adjustment for race Performed By: #### L AB15 ####Sales Promotion Manager: MICKIE ASHER ([phone])[facility] ([facility])[address] [place] [address] [place] Glucose [Mass/Vol] 140 mg/dL High 82-115 [facility] Comment on above: Performed By: #### L AB15 ####Sales Promotion Manager: MICKIE ASHER ([phone])[facility] ([facility])[address] [place] [address] Potassium [Moles/Vol] 3.8 mmol/L Normal 3.5-5.1 [facility] Comment on above: Result Comment: [facility] potassium values may be up to 0.5 mmol/L lower than serum values. Performed By: #### L AB15 ####Sales Promotion Manager: MICKIE ASHER ([phone])[facility] ([facility])[address] [place] [address] Sodium [Moles/Vol] 135 mmol/L Low 136-145 [facility] Comment on above: Performed By: #### L AB15 ####Sales Promotion Manager: MICKIE ASHER ([phone])[facility])[address] [place] [address] Urea nitrogen [Mass/Vol] 13 mg/dL Normal 9-23 [facility] Comment on above: Performed By: #### L AB15 ####Sales Promotion Manager: MICKIE ASHER ([phone])[facility] ([facility])[address] [place] [address] CBC WITH AUTO DIFFERENTIALon 12-11-2024 Basophils (Bld) [#/Vol] 0.1 10*3/uL Normal 0.0-0.2 [facility] Comment on above: Performed By: #### L [id number] ####Sales Promotion Manager: MICKIE ASHER ([phone])[facility] ([facility])[address] [place] [address] Basophils/100 WBC (Bld) 0.4 % Normal 0.0-2.0 [facility] Comment on above: Performed By: #### L [id number] ####Sales Promotion Manager: MICKIE ASHER ([phone])[facility] ([facility])[address] [place] [address] Eosinophils (Bld) [#/Vol] 0.1 10*3/uL Normal 0.0-0.5 [facility] Comment on above: Performed By: #### L [id number] ####Sales Promotion Manager: MICKIE ASHER ([phone])[facility] ([facility])[address] [place] [address] Eosinophils/100 WBC (Bld) 0.4 % Normal 0.0-6.0 [facility] Comment on above: Performed By: #### L [id number] ####Sales Promotion Manager: MICKIE ASHER ([phone])[facility])[address] [place] [address] Erythrocyte distribution width (RBC) [Ratio] 14.6 % Normal 11.5-15.0 [facility] Comment on above: Performed By: #### L [id number] ####Sales Promotion Manager: MICKIE ASHER ([phone])[facility])[address] [place] [address] Hematocrit (Bld) [Volume fraction] 31.8 % Low 40.0-52.0 [facility] Comment on above: Performed By: #### L [id number] ####Sales Promotion Manager: MICKIE ASHER ([phone])[address] Hemoglobin (Bld) [Mass/Vol] 10.4 g/dL Low 13.0-18.0 [facility] Comment on above: Performed By: #### L [id number] ####Sales Promotion Manager: MICKIE ASHER ([phone])[address] IMMATURE GRANS % 1.1 % Normal 0.0-2.0 [facility] Comment on above: Performed By: #### L [id number] ####Sales Promotion Manager: MICKIE ASHER ([phone])[facility])[address] [place] [address] IMMATURE GRANS ABSOLUTE 0.2 10*3/uL High <0.1 [facility] Comment on above: Performed By: #### L [id number] ####Sales Promotion Manager: MICKIE ASHER ([phone])[facility])[address] [place] [address] Lymphocytes (Bld) [#/Vol] 1.0 10*3/uL Normal 1.0-4.3 [facility] Comment on above: Performed By: #### L [id number] ####Sales Promotion Manager: MICKIE ASHER ([phone])[facility] ([facility])[address] [place] [address] Lymphocytes/100 WBC (Bld) 5.9 % Low 15.0-45.0 [facility] Comment on above: Performed By: #### L [id number] ####Sales Promotion Manager: MICKIE ASHER ([phone])[facility])[address] [place] [address] MCH (RBC) [Entitic mass] 30.1 pg Normal 26.0-34.0 [facility] Comment on above: Performed By: #### L [id number] ####Sales Promotion Manager: MICKIE ASHER ([phone])[facility])[address] [place] [address] MCHC 32.7 % Normal 30.5-36.0 [facility] Comment on above: Performed By: #### L [id number] ####Sales Promotion Manager: MICKIE ASHER ([phone])[facility] ([facility])[address] [place] [address] MCV (RBC) [Entitic vol] 91.9 fL Normal 77.0-99.0 [facility] Comment on above: Performed By: #### L [id number] ####Sales Promotion Manager: MICKIE ASHER ([phone])[facility])[address] [place] [address] Monocytes (Bld) [#/Vol] 1.5 10*3/uL High 0.0-0.9 [facility] Comment on above: Performed By: #### L [id number] ####Sales Promotion Manager: MICKIE ASHER ([phone])[facility])[address] [place] [address] Monocytes/100 WBC (Bld) 9.1 % Normal 5.0-13.0 [facility] Comment on above: Performed By: #### L [id number] ####Sales Promotion Manager: MICKIE ASHER ([phone])[facility] [place] [address] NEUTROPHILS ABSOLUTE 13.3 10*3/uL High 1.8-7.5 [facility] Comment on above: Performed By: #### L [id number] ####Sales Promotion Manager: MICKIE ASHER ([phone])[facility] ([facility])[address] [place] [address] Neutrophils/100 WBC (Bld) 83.1 % High 38.0-82.0 [facility] Comment on above: Performed By: #### L [id number] ####Sales Promotion Manager: MICKIE ASHER ([phone])[facility] ([facility])[address] [place] [address] NRBC 0.0 /100 WBCs Normal 0.0-2.0 [facility] Comment on above: Performed By: #### L [id number] ####Sales Promotion Manager: MICKIE ASHER ([phone])[facility] ([facility])[address] [place] [address] Platelet mean volume (Bld) [Entitic vol] 10.9 fL Normal 9.0-12.7 [facility] Comment on above: Performed By: #### L [id number] ####Sales Promotion Manager: MICKIE ASHER ([phone])[facility] ([facility])[address] [place] [address] Platelets (Bld) [#/Vol] 269 10*3/uL Normal 140-440 [facility] Comment on above: Performed By: #### L [id number] ####Sales Promotion Manager: MICKIE ASHER ([phone])[facility] ([facility])[address] [place] [address] RBC (Bld) [#/Vol] 3.46 10*6/uL Low 4.40-5.90 [facility] Comment on above: Performed By: #### L [id number] ####Sales Promotion Manager: MICKIE ASHER ([phone])[facility] ([facility])[address] [place] [address] [place] WBC (Bld) [#/Vol] 16.0 10*3/uL High 3.6-10.7 [facility] Comment on above: Performed By: #### L [id number] ####Sales Promotion Manager: MICKIE ASHER ([phone])[facility] ([facility])[address] [place] [address] Consulton 12-11-2024 Consult Normal [facility] Consult Normal [facility] Progress Noteon 12-11-2024 Progress Note Normal [facility] Progress Note [facility] Progress Note Normal [facility] 30on 12-10-2024 30 Normal [facility] [id number] 12-10-2024 [id number] Normal [facility] [id number] Normal [facility] APTTon 12-10-2024 aPTT Coag (Bld) [Time] 53.5 s High 20.0-30.5 [facility] Comment on above: Result Comment: AMANUEL [place] COMMENTS:NOTE: The therapeutic time for Heparin anticoagulation, based on Xa activity inhibition, is an APTT of 46-80 seconds. Performed By: #### L [id number] ####Sales Promotion Manager: MICKIE ASHER ([phone])[facility] ([facility])[address] [place] [address] aPTT Coag (Bld) [Time] 62.9 s High 20.0-30.5 [facility] Comment on above: Result Comment: AMANUEL [place] COMMENTS:NOTE: The therapeutic time for Heparin anticoagulation, based on Xa activity inhibition, is an APTT of 46-80 seconds. Performed By: #### L [id number] ####Sales Promotion Manager: MICKIE ASHER ([phone])[facility] ([facility])[address] [place] [address] aPTT Coag (Bld) [Time] 37.7 s High 20.0-30.5 [facility] Comment on above: Result Comment: AMANUEL [place] COMMENTS:NOTE: The therapeutic time for Heparin anticoagulation, based on Xa activity inhibition, is an APTT of 46-80 seconds. Performed By: #### L [id number] ####Sales Promotion Manager: MICKIE ASHER ([phone])[facility] ([facility])[address] [place] [address] BASIC METABOLIC PANELon 06-2 Anion gap [Moles/Vol] 8 mmol/L Normal 3-13 [facility] Comment on above: Performed By: #### L [id number] ####Sales Promotion Manager: MICKIE ASHER ([phone])[facility] ([facility])[address] [place] [address] Calcium [Mass/Vol] 8.2 mg/dL Low 8.8-10.0 [facility] Comment on above: Performed By: #### L [id number] ####Sales Promotion Manager: MICKIE ASHER ([phone])[facility] ([facility])[address] [place] [address] Chloride [Moles/Vol] 101 mmol/L Normal 98-107 [facility] Comment on above: Performed By: #### L [id number] ####Sales Promotion Manager: IMCKIE ASHER ([phone])[facility] ([facility])[address] [place] [address] CO2 [Moles/Vol] 23 mmol/L Normal 23-31 [facility] Comment on above: Performed By: #### L [id number] ####Sales Promotion Manager: MICKIE ASHER ([phone])[facility] ([facility])[address] [place] [address] Creatinine [Mass/Vol] 0.70 mg/dL Low 0.72-1.25 [facility] Comment on above: Performed By: #### L [id number] ####Sales Promotion Manager: MICKIE ASHER ([phone])[facility] ([facility])[address] [place] [address] GLOMERULAR FILTRATION RATE ML/MIN/1.73 SQ M.PREDICTED >90.0 Normal >60.0 [facility] Comment on above: Result Comment: Calc ulation based on the Chronic Kidney Disease Epidemiology Collaboration (CKD-EPI) equation refit without adjustment for race Performed By: #### L [id number] ####Sales Promotion Manager: MICKIE ASHER ([phone])[facility] ([facility])[address] [place] [address] Glucose [Mass/Vol] 119 mg/dL High 82-115 [facility] Comment on above: Performed By: #### L [id number] ####Sales Promotion Manager: MICKIE ASHER ([phone])[facility])[address] [place] [address] Potassium [Moles/Vol] 4.0 mmol/L Normal 3.5-5.1 [facility] Comment on above: Result Comment: [facility] potassium values may be up to 0.5 mmol/L lower than serum values. Performed By: #### L AB15 ####Sales Promotion Manager: MICKIE ASHER ([phone])[facility])[address] [place] [address] Sodium [Moles/Vol] 132 mmol/L Low 136-145 [facility] Comment on above: Performed By: #### L AB15 ####Sales Promotion Manager: MICKIE ASHER ([phone])[facility])[address] [place] [address] Urea nitrogen [Mass/Vol] 12 mg/dL Normal 9-23 [facility] Comment on above: Performed By: #### L [id number] ####Sales Promotion Manager: MICKIE ASHER ([phone])[facility])[address] [place] [address] CBC WITH AUTO DIFFERENTIALon 12-10-2024 Erythrocyte distribution width (RBC) [Ratio] 14.7 % Normal 11.5-15.0 [facility] Comment on above: Performed By: #### L [id number], [id number] ####Sales Promotion Manager: MICKIE ASHER ([phone])[facility])[address] [place] [address] Hematocrit (Bld) [Volume fraction] 32.1 % Low 40.0-52.0 [facility] Comment on above: Performed By: #### L [id number], [id number] ####Sales Promotion Manager: MICKIE ASHER ([phone])[facility] ([facility])[address] [place] [address] Hemoglobin (Bld) [Mass/Vol] 10.4 g/dL Low 13.0-18.0 [facility] Comment on above: Performed By: #### L [id number], [id number] ####Sales Promotion Manager: MICKIE ASHER ([phone])[facility] ([facility])[address] [place] [address] MCH (RBC) [Entitic mass] 29.9 pg Normal 26.0-34.0 [facility] Comment on above: Performed By: #### L [id number], [id number] ####Sales Promotion Manager: MICKIE ASHER ([phone])[facility])[address] [place] [address] MCHC 32.4 % Normal 30.5-36.0 [facility] Comment on above: Performed By: #### L [id number], [id number] ####Sales Promotion Manager: MICKIE ASHER ([phone])[facility] ([facility])[address] [place] [address] MCV (RBC) [Entitic vol] 92.2 fL Normal 77.0-99.0 [facility] Comment on above: Performed By: #### L [id number], [id number] ####Sales Promotion Manager: MICKIE ASHER ([phone])[facility] ([facility])[address] [place] [address] Platelet mean volume (Bld) [Entitic vol] 10.7 fL Normal 9.0-12.7 [facility] Comment on above: Performed By: #### L [id number], [id number] ####Sales Promotion Manager: MICKIE ASHER ([phone])[facility])[address] [place] [address] Platelets (Bld) [#/Vol] 234 10*3/uL Normal 140-440 [facility] Comment on above: Performed By: #### L [id number], [id number] ####Sales Promotion Manager: MICKIE ASHER ([phone])[facility] ([facility])[address] [place] [address] RBC (Bld) [#/Vol] 3.48 10*6/uL Low 4.40-5.90 [facility] Comment on above: Performed By: #### L [id number], [id number] ####Sales Promotion Manager: MICKIE ASHER ([phone])[facility] ([facility])[address] [place] [address] WBC (Bld) [#/Vol] 15.1 10*3/uL High 3.6-10.7 [facility] Comment on above: Performed By: #### L [id number], [id number] ####Sales Promotion Manager: MICKIE ASHER ([phone])[facility] ([facility])[address] [place] [address] MANUAL DIFFERENTIAL (CELLAVI NATACHA)on 12-10-2024 BAND NEUTROPHILS TOTAL PER COUNTED LEUKOCYTES BY MANUAL COUNT [facility] Comment on above: Performed By: #### L [id number], [id number] ####Sales Promotion Manager: MICKIE ASHER ([phone])[facility])[address] [place] [address] BASOPHILS TOTAL PER COUNTED LEUKOCYTES BY MANUAL COUNT [facility] Comment on above: Performed By: #### L [id number], [id number] ####Sales Promotion Manager: MICKIE ASHER ([phone])[facility])[address] [place] [address] BLASTS TOTAL PER COUNTED LEUKOCYTES BY MANUAL COUNT [facility] Comment on above: Performed By: #### L [id number], [id number] ####Sales Promotion Manager: MICKIE ASHER ([phone])[facility])[address] [place] [address] EOSINOPHILS TOTAL PER COUNTED LEUKOCYTES BY MANUAL COUNT [facility] Comment on above: Performed By: #### L [id number], [id number] ####Sales Promotion Manager: MICKIE ASHER ([phone])[facility] ([facility])[address] [place] [address] [place] LYMPHOCYTES (10*3/UL) IN BLOOD-CELLAVISION 0.2 10*3/uL Low 1.0-4.3 [facility] Comment on above: Performed By: #### L [id number], [id number] ####Sales Promotion Manager: MICKIE ASHER ([phone])[facility] ([facility])[address] [place] [address] [place] LYMPHOCYTES TOTAL PER COUNTED LEUKOCYTES BY MANUAL COUNT 1 Normal [facility] Comment on above: Performed By: #### L [id number], [id number] ####Sales Promotion Manager: MICKIE ASHER ([phone])[facility] ([facility])[address] [place] [address] LYMPHOCYTES/100 LEUKOCYTES IN BLOOD-CELLAVISION 1 % Low 15-45 [facility] Comment on above: Performed By: #### L [id number], [id number] ####Sales Promotion Manager: MICKIE ASHER ([phone])[facility] ([facility])[address] [place] [address] METAMYELOCYTES TOTAL PER COUNTED LEUKOCYTES BY MANUAL COUNT [facility] Comment on above: Performed By: #### L [id number], [id number] ####Sales Promotion Manager: MICKIE ASHER ([phone])[facility] ([facility])[address] [place] [address] MONOCYTES (10*3/UL) IN BLOOD-CELLAVISION 1.5 10*3/uL High 0.0-0.9 [facility] Comment on above: Performed By: #### L [id number], [id number] ####Sales Promotion Manager: MICKIE ASHER ([phone])[facility] ([facility])[address] [place] [address] [place] MONOCYTES TOTAL PER COUNTED LEUKOCYTES BY MANUAL COUNT 10 [facility] Comment on above: Performed By: #### L [id number], [id number] ####Sales Promotion Manager: MICKIE ASHER ([phone])[facility] ([facility])[address] [place] [address] [place] MONOCYTES/100 LEUKOCYTES IN BLOOD-VIVEK 10 % Normal 5-13 [facility] Comment on above: Performed By: #### L [id number], [id number] ####Sales Promotion Manager: MICKIE ASHER ([phone])[facility] ([facility])[address] [place] [address] MYELOCYTES COUNTED BY MANUAL COUNT Normal [facility] Comment on above: Performed By: #### L [id number], [id number] ####Sales Promotion Manager: MICKIE ASHER ([phone])[facility] ([facility])[address] [place] [address] [place] NEUTROPHILS TOTAL PER COUNTED LEUKOCYTES BY MANUAL COUNT 90 Normal [facility] Comment on above: Performed By: #### L [id number], [id number] ####Sales Promotion Manager: MICKIE ASHER ([phone])[facility] ([facility])[address] [place] [address] OVALOCYTES PRESENCE IN BLOOD BY LIGHT MICROSCOPY Moderate Abnormal (none) [facility] Comment on above: Performed By: #### L [id number], [id number] ####Sales Promotion Manager: MICKIE ASHER ([phone])[facility] ([facility])[address] [place] [address] [place] POIKILOCYTOSIS (PRESENCE) IN BLOOD BY LIGHT MICROSCOPY Moderate Abnormal (none) [facility] Comment on above: Performed By: #### L [id number], [id number] ####Sales Promotion Manager: MICKIE ASHER ([phone])[facility] ([facility])[address] [place] [address] [place] PROMYELOCYTES TOTAL PER COUNTED LEUKOCYTES BY MANUAL COUNT [facility] Comment on above: Performed By: #### L [id number], [id number] ####Sales Promotion Manager: MICKIE ASHER ([phone])[facility] ([facility])[address] [place] [address] [place] RBC MORPHOLOGY IN BLOOD abnormal Normal [facility] Comment on above: Performed By: #### L [id number], [id number] ####Sales Promotion Manager: MICKIE ASHER ([phone])[facility] ([facility])[address] [place] [address] [place] SEGMENTED NEUTROPHILS (10*3/UL) IN BLOOD-CELLAVISION 13.4 10*3/uL High 1.8-7.5 [facility] Comment on above: Performed By: #### L [id number], [id number] ####Sales Promotion Manager: MICKIE ASHER ([phone])[facility] ([facility])[address] [place] [address] SEGMENTED NEUTROPHILS/100 LEUKOCYTES-CE 89 % High 38-82 [facility] Comment on above: Performed By: #### L [id number], [id number] ####Sales Promotion Manager: MICKIE ASHER ([phone])[facility] ([facility])[address] [place] [address] UNCLASSIFIED CELLS TOTAL PER COUNTED LEUKOCYTES BY MANUAL COUNT Normal [facility] Comment on above: Performed By: #### L [id number], [id number] ####Sales Promotion Manager: MICKIE ASHER ([phone])[facility] ([facility])[address] [place] [address] VARIANT LYMPHOCYTES TOTAL PER COUNTED LEUKOCYTES BY MANUAL COUNT Normal [facility] Comment on above: Performed By: #### L [id number], [id number] ####Sales Promotion Manager: MICKIE ASHER ([phone])[facility] ([facility])[address] [place] [address] Nursing Noteon 12-10-2024 Nursing Note Normal [facility] Progress Noteon 12-10-2024 Progress Note Normal [facility] Progress Note Normal [facility] Progress Note Nutrition rescreen completed. Patient referred to the Dietitian due to poor PO intake. DHIRAJ Prakash Normal [facility] 30on 12-09-2024 30 Normal [facility] 30 Normal [facility] [id number] 12-09-2024 [id number] Normal [facility] [id number] Patient Choice Patient Name: GINGER WELDON Date of : 1960 Normal [facility] APTTon 12-09-2024 aPTT Coag (Bld) [Time] 42.1 s High 20.0-30.5 [facility] Comment on above: Result Comment: AMANUEL [place] COMMENTS:NOTE: The therapeutic time for Heparin anticoagulation, based on Xa activity inhibition, is an APTT of 46-80 seconds. Performed By: #### L [id number] ####Sales Promotion Manager: MICKIE ASHER ([phone])[facility])[address] [place] [address] aPTT Coag (Bld) [Time] 43.9 s High 20.0-30.5 [facility] Comment on above: Result Comment: AMANUEL [place] COMMENTS:NOTE: The therapeutic time for Heparin anticoagulation, based on Xa activity inhibition, is an APTT of 46-80 seconds. Performed By: #### L [id number] ####Sales Promotion Manager: MICKIE ASHER ([phone])[facility] ([facility])[address] [place] [address] aPTT Coag (Bld) [Time] 50.1 s High 20.0-30.5 [facility] Comment on above: Result Comment: AMANUEL [place] COMMENTS:NOTE: The therapeutic time for Heparin anticoagulation, based on Xa activity inhibition, is an APTT of 46-80 seconds. Performed By: #### L [id number] ####Sales Promotion Manager: MICKIE ASHER ([phone])[facility] ([facility])[address] [place] [address] aPTT Coag (Bld) [Time] 43.2 s High 20.0-30.5 [facility] Comment on above: Result Comment: AMANUEL [place] COMMENTS:NOTE: The therapeutic time for Heparin anticoagulation, based on Xa activity inhibition, is an APTT of 46-80 seconds. Performed By: #### L [id number] ####Sales Promotion Manager: MICKIE ASHER ([phone])[facility] ([facility])[address] [place] [address] BASIC METABOLIC PANELon 11-16 Anion gap [Moles/Vol] 7 mmol/L Normal 3-13 [facility] Comment on above: Performed By: #### L [id number] ####Sales Promotion Manager: MICKIE ASHER ([phone])[facility] ([facility])[address] [place] [address] Calcium [Mass/Vol] 8.4 mg/dL Low 8.8-10.0 [facility] Comment on above: Performed By: #### L [id number] ####Sales Promotion Manager: MICKIE ASHER ([phone])[facility] ([facility])[address] [place] [address] Chloride [Moles/Vol] 102 mmol/L Normal 98-107 [facility] Comment on above: Performed By: #### L [id number] ####Sales Promotion Manager: MICKIE ASHER ([phone])[facility] ([facility])[address] [place] [address] CO2 [Moles/Vol] 23 mmol/L Normal 23-31 [facility] Comment on above: Performed By: #### L [id number] ####Sales Promotion Manager: MICKIE ASHER ([phone])[facility] ([facility])[address] [place] [address] Creatinine [Mass/Vol] 0.74 mg/dL Normal 0.72-1.25 [facility] Comment on above: Performed By: #### L [id number] ####Sales Promotion Manager: MICKIE ASHER ([phone])[facility] ([facility])[address] [place] [address] GLOMERULAR FILTRATION RATE ML/MIN/1.73 SQ M.PREDICTED >90.0 Normal >60.0 [facility] Comment on above: Result Comment: Calc ulation based on the Chronic Kidney Disease Epidemiology Collaboration (CKD-EPI) equation refit without adjustment for race Performed By: #### L [id number] ####Sales Promotion Manager: MICKIE ASHER ([phone])[facility] ([facility])[address] [place] [address] [place] Glucose [Mass/Vol] 157 mg/dL High 82-115 [facility] Comment on above: Performed By: #### L [id number] ####Sales Promotion Manager: MICKIE ASHER ([phone])[facility] ([facility])[address] [place] [address] Potassium [Moles/Vol] 4.8 mmol/L Normal 3.5-5.1 [facility] Comment on above: Result Comment: [facility] potassium values may be up to 0.5 mmol/L lower than serum values. Performed By: #### L [id number] ####Sales Promotion Manager: MICKIE ASHER ([phone])[facility] ([facility])[address] [place] [address] Sodium [Moles/Vol] 132 mmol/L Low 136-145 [facility] Comment on above: Performed By: #### L [id number] ####Sales Promotion Manager: MICKIE ASHER ([phone])[facility])[address] [place] [address] Urea nitrogen [Mass/Vol] 15 mg/dL Normal 9-23 [facility] Comment on above: Performed By: #### L [id number] ####Sales Promotion Manager: MICKIE ASHER ([phone])[facility])[address] [place] [address] CBC WITH AUTO DIFFERENTIALon 12-09-2024 Basophils (Bld) [#/Vol] 0.0 10*3/uL Normal 0.0-0.2 [facility] Comment on above: Performed By: #### L [id number] ####Sales Promotion Manager: MICKIE ASHER ([phone])[facility] ([facility])[address] [place] [address] Basophils/100 WBC (Bld) 0.1 % Normal 0.0-2.0 [facility] Comment on above: Performed By: #### L [id number] ####Sales Promotion Manager: MICKIE ASHER ([phone])[facility])[address] [place] [address] Eosinophils (Bld) [#/Vol] 0.0 10*3/uL Normal 0.0-0.5 [facility] Comment on above: Performed By: #### L [id number] ####Sales Promotion Manager: MICKIE ASHER ([phone])[facility])[address] [place] [address] Eosinophils/100 WBC (Bld) 0.1 % Normal 0.0-6.0 [facility] Comment on above: Performed By: #### L [id number] ####Sales Promotion Manager: MICKIE ASHER ([phone])[facility])[address] [place] [address] Erythrocyte distribution width (RBC) [Ratio] 15.0 % Normal 11.5-15.0 [facility] Comment on above: Performed By: #### L [id number] ####Sales Promotion Manager: MICKIE ASHER ([phone])[address] Hematocrit (Bld) [Volume fraction] 33.9 % Low 40.0-52.0 [facility] Comment on above: Performed By: #### L [id number] ####Sales Promotion Manager: MICKIE ASHER ([phone])[facility])[address] [place] [address] Hemoglobin (Bld) [Mass/Vol] 11.2 g/dL Low 13.0-18.0 [facility] Comment on above: Performed By: #### L [id number] ####Sales Promotion Manager: MICKIE ASHER ([phone])[facility])[address] [place] [address] IMMATURE GRANS % 0.9 % Normal 0.0-2.0 [facility] Comment on above: Performed By: #### L [id number] ####Sales Promotion Manager: MICKIE ASHER ([phone])[facility])[address] [place] [address] IMMATURE GRANS ABSOLUTE 0.2 10*3/uL High <0.1 [facility] Comment on above: Performed By: #### L [id number] ####Sales Promotion Manager: MICKIE ASHER ([phone])[facility])[address] [place] [address] Lymphocytes (Bld) [#/Vol] 0.7 10*3/uL Low 1.0-4.3 [facility] Comment on above: Performed By: #### L [id number] ####Sales Promotion Manager: MICKIE ASHER ([phone])[facility])[address] [place] [address] Lymphocytes/100 WBC (Bld) 3.6 % Low 15.0-45.0 [facility] Comment on above: Performed By: #### L [id number] ####Sales Promotion Manager: MICKIE ASHER ([phone])[facility])[address] [place] [address] MCH (RBC) [Entitic mass] 30.3 pg Normal 26.0-34.0 [facility] Comment on above: Performed By: #### L [id number] ####Sales Promotion Manager: MICKIE ASHER ([phone])[facility])[address] [place] [address] MCHC 33.0 % Normal 30.5-36.0 [facility] Comment on above: Performed By: #### L [id number] ####Sales Promotion Manager: MICKIE ASHER ([phone])[facility])[address] [place] [address] MCV (RBC) [Entitic vol] 91.6 fL Normal 77.0-99.0 [facility] Comment on above: Performed By: #### L [id number] ####Sales Promotion Manager: MICKIE ASHER ([phone])[facility])[address] [place] [address] Monocytes (Bld) [#/Vol] 1.5 10*3/uL High 0.0-0.9 [facility] Comment on above: Performed By: #### L [id number] ####Sales Promotion Manager: MICKIE ASHER ([phone])[facility])[address] [place] [address] Monocytes/100 WBC (Bld) 7.9 % Normal 5.0-13.0 [facility] Comment on above: Performed By: #### L [id number] ####Sales Promotion Manager: MICKIE ASHER ([phone])[facility] ([facility])[address] [place] [address] NEUTROPHILS ABSOLUTE 16.7 10*3/uL High 1.8-7.5 [facility] Comment on above: Performed By: #### L [id number] ####Sales Promotion Manager: MICKIE ASHER ([phone])[facility] ([facility])[address] [place] [address] Neutrophils/100 WBC (Bld) 87.4 % High 38.0-82.0 [facility] Comment on above: Performed By: #### L [id number] ####Sales Promotion Manager: MICKIE ASHER ([phone])[facility] ([facility])[address] [place] [address] NRBC 0.0 /100 WBCs Normal 0.0-2.0 [facility] Comment on above: Performed By: #### L [id number] ####Sales Promotion Manager: MICKIE ASHER ([phone])[facility] ([facility])[address] [place] [address] Platelet mean volume (Bld) [Entitic vol] 10.7 fL Normal 9.0-12.7 [facility] Comment on above: Performed By: #### L [id number] ####Sales Promotion Manager: MICKIE ASHER ([phone])[facility] ([facility])[address] [place] [address] Platelets (Bld) [#/Vol] 230 10*3/uL Normal 140-440 [facility] Comment on above: Performed By: #### L [id number] ####Sales Promotion Manager: MICKIE ASHER ([phone])[facility] ([facility])[address] [place] [address] RBC (Bld) [#/Vol] 3.70 10*6/uL Low 4.40-5.90 [facility] Comment on above: Performed By: #### L [id number] ####Sales Promotion Manager: MICKIE ASHER ([phone])[facility] ([facility])[address] [place] [address] WBC (Bld) [#/Vol] 19.0 10*3/uL High 3.6-10.7 [facility] Comment on above: Performed By: #### L [id number] ####Sales Promotion Manager: MICKIE ASHER ([phone])[facility] ([facility])[address] [place] [address] Progress Noteon 12-09-2024 Progress Note Normal [facility] Progress Note Normal [facility] [id number] 12-08-2024 [id number] Normal [facility] Anesthesia Noteon 12-08-2024 Anesthesia Note [facility] BLOOD TYPE AND SCREEN GELon 12-08-2024 ABO GROUPING A Normal [facility] Comment on above: Performed By: #### L [id number] ####Sales Promotion Manager: MICKIE ASHER ([phone])[facility] [place] [address] RH TYPE IN BLOOD Positive [facility] Comment on above: Performed By: #### L [id number] ####Sales Promotion Manager: MICKIE ASHER ([phone])[facility] ([facility])[address] [place] [address] CBC (HEMOGRAM)on 12-08-2024 Erythrocyte distribution width (RBC) [Ratio] 15.0 % Normal 11.5-15.0 [facility] Comment on above: Performed By: #### L [id number] ####Sales Promotion Manager: MICKIE ASHER ([phone])[facility] ([facility])[address] [place] [address] Hematocrit (Bld) [Volume fraction] 40.0 % Normal 40.0-52.0 [facility] Comment on above: Performed By: #### L [id number] ####Sales Promotion Manager: MICKIE ASHER ([phone])[facility] ([facility])[address] [place] [address] Hemoglobin (Bld) [Mass/Vol] 13.4 g/dL Normal 13.0-18.0 [facility] Comment on above: Performed By: #### L [id number] ####Sales Promotion Manager: MICKIE ASHER ([phone])[facility] ([facility])[address] [place] [address] MCH (RBC) [Entitic mass] 30.7 pg Normal 26.0-34.0 [facility] Comment on above: Performed By: #### L [id number] ####Sales Promotion Manager: MICKIE ASHER ([phone])[facility])[address] [place] [address] MCHC 33.5 % Normal 30.5-36.0 [facility] Comment on above: Performed By: #### L [id number] ####Sales Promotion Manager: MICKIE ASHER ([phone])[facility])[address] [place] [address] MCV (RBC) [Entitic vol] 91.7 fL Normal 77.0-99.0 [facility] Comment on above: Performed By: #### L [id number] ####Sales Promotion Manager: MICKIE ASHER ([phone])[facility] ([facility])[address] [place] [address] Platelet mean volume (Bld) [Entitic vol] 10.6 fL Normal 9.0-12.7 [facility] Comment on above: Performed By: #### L [id number] ####Sales Promotion Manager: MICKIE ASHER ([phone])[facility] ([facility])[address] [place] [address] Platelets (Bld) [#/Vol] 240 10*3/uL Normal 140-440 [facility] Comment on above: Performed By: #### L [id number] ####Sales Promotion Manager: MICKIE ASHER ([phone])[facility] ([facility])[address] [place] [address] RBC (Bld) [#/Vol] 4.36 10*6/uL Low 4.40-5.90 [facility] Comment on above: Performed By: #### L [id number] ####Sales Promotion Manager: MICKIE ASHER ([phone])[facility])[address] [place] [address] WBC (Bld) [#/Vol] 14.1 10*3/uL High 3.6-10.7 [facility] Comment on above: Performed By: #### L [id number] ####Sales Promotion Manager: MICKIE ASHER ([phone])[facility])[address] [place] [address] COMPREHENSIVE METABOLIC PANE Wilber 12-08-2024 Albumin [Mass/Vol] 3.2 g/dL Low 3.4-4.8 [facility] Comment on above: Performed By: #### L [id number] ####Sales Promotion Manager: MICKIE ASHER ([phone])[facility])[address] [place] [address] ALP [Catalytic activity/Vol] 110 U/L Normal 40-150 [facility] Comment on above: Performed By: #### L [id number] ####Sales Promotion Manager: MICKIE ASHER ([phone])[facility])[address] [place] [address] ALT [Catalytic activity/Vol] 73 U/L High <40 [facility] Comment on above: Performed By: #### L [id number] ####Sales Promotion Manager: MICKIE ASHER ([phone])[facility])[address] [place] [address] Anion gap [Moles/Vol] 7 mmol/L Normal 3-13 [facility] Comment on above: Performed By: #### L [id number] ####Sales Promotion Manager: MICKIE ASHER ([phone])[facility])[address] [place] [address] AST [Catalytic activity/Vol] 101 U/L High <34 [facility] Comment on above: Performed By: #### L [id number] ####Sales Promotion Manager: MICKIE ASHER ([phone])[facility] ([facility])[address] [place] [address] Bilirubin [Mass/Vol] 0.6 mg/dL Normal <1.2 [facility] Comment on above: Performed By: #### L [id number] ####Sales Promotion Manager: MICKIE ASHER ([phone])[facility] ([facility])[address] [place] [address] Calcium [Mass/Vol] 9.4 mg/dL Normal 8.8-10.0 [facility] Comment on above: Performed By: #### L [id number] ####Sales Promotion Manager: MICKIE ASHER ([phone])[facility] ([facility])[address] [place] [address] Chloride [Moles/Vol] 103 mmol/L Normal 98-107 [facility] Comment on above: Performed By: #### L [id number] ####Sales Promotion Manager: MICKIE ASHER ([phone])[facility])[address] [place] [address] CO2 [Moles/Vol] 25 mmol/L Normal 23-31 [facility] Comment on above: Performed By: #### L [id number] ####Sales Promotion Manager: MICKIE ASHER ([phone])[facility] ([facility])[address] [place] [address] Creatinine [Mass/Vol] 0.78 mg/dL Normal 0.72-1.25 [facility] Comment on above: Performed By: #### L [id number] ####Sales Promotion Manager: MICKIE ASHER ([phone])[facility])[address] [place] [address] GLOMERULAR FILTRATION RATE ML/MIN/1.73 SQ M.PREDICTED >90.0 Normal >60.0 [facility] Comment on above: Result Comment: Calc ulation based on the Chronic Kidney Disease Epidemiology Collaboration (CKD-EPI) equation refit without adjustment for race Performed By: #### L [id number] ####Sales Promotion Manager: MICKIE ASHER ([phone])[facility])[address] [place] [address] Glucose [Mass/Vol] 127 mg/dL High 82-115 [facility] Comment on above: Performed By: #### L [id number] ####Sales Promotion Manager: MICKIE ASHER ([phone])[facility])[address] [place] [address] Potassium [Moles/Vol] 3.9 mmol/L Normal 3.5-5.1 [facility] Comment on above: Result Comment: [facility] potassium values may be up to 0.5 mmol/L lower than serum values. Performed By: #### L [id number] ####Sales Promotion Manager: MICKIE ASHER ([phone])[facility] ([facility])[address] [place] [address] Protein [Mass/Vol] 7.2 g/dL Normal 6.4-8.3 [facility] Comment on above: Performed By: #### L [id number] ####Sales Promotion Manager: MICKIE ASHER ([phone])[facility] ([facility])[address] [place] [address] Sodium [Moles/Vol] 135 mmol/L Low 136-145 [facility] Comment on above: Performed By: #### L [id number] ####Sales Promotion Manager: MICKIE ASHER ([phone])[facility])[address] [place] [address] Urea nitrogen [Mass/Vol] 16 mg/dL Normal 9-23 [facility] Comment on above: Performed By: #### L [id number] ####Sales Promotion Manager: MICKIE ASHER ([phone])[facility] ([facility])[address] [place] [address] [facility] ILIOFEMORAL W W Oon 12-08-2024 CTA AORT[facility] BL ILIOFEMORAL W WO Normal [facility] ECG 12-LEADon 12-08-2024 ECG 12-LEAD IMPRESSION: Sinus rhythm Electronically Signed On 12-08-2024 14:42:58 EDT by Pierre Downing Normal [facility] ED Nursing Noteon 12-08-2024 ED Nursing Note Transportation at bedside. Pt has even no labored respirations and shows no signs of distress at this time. PT is being transported to OR with papers. Normal [facility] ED Provider Noteon ED Provider Note Normal [facility] LACTIC ACID WITH REFLEXon Lactate [Moles/Vol] 1.3 mmol/L Normal 0.5-2.2 [facility] Comment on above: Performed By: #### L [id number] ####Sales Promotion Manager: MICKIE ASHER ([phone])[facility])[address] [place] [address] Nursing Noteon 12-08-[address] Graham at bedside to evaluate Normal [facility] Nursing Note Unable to find pulse on right ankle/leg with doppler where Dr Simon found it immediately post op. Dr Graham messaged. Normal [facility] Op Noteon 12-08-2024 Op Note Normal [facility] PROTIME AND APTTon aPTT Coag (Bld) [Time] 24.8 s Normal 20.0-30.5 [facility] Comment on above: Performed By: #### L [id number] ####Sales Promotion Manager: MICKIE ASHER ([phone])[facility] ([facility])[address] [place] [address] INR Coag (PPP) [Relative time] 1.1 {INR} Normal 0.9-1.1 [facility] Comment on above: Result Comment: Zeke mmended Anticoagulant Therapy: SEE BELOW----- INR of 2.0 - 3.0 : - Prophylaxis of Venous Thrombosis (high-risk surgery) - Treatment of Venous Thrombosis - Treatment of Pulmonary Embolism (Includes tissue heart valves, Acute Myocardial Infarction to prevent systemic embolism, Valvular Heart Disease, and Atrial Fibrillation)----- INR of 2.5 - 3.5 : - Mechanical Prosthetic Valves (high risk) - If oral anticoagulant therapy is used to prevent Myocardial Infarction Performed By: #### L [id number] ####Sales Promotion Manager: MICKIE ASHER ([phone])[facility] ([facility])[address] [place] [address] PT Coag (PPP) [Time] 11.3 s Normal 9.0-12.0 [facility] Comment on above: Performed By: #### L [id number] ####Sales Promotion Manager: MICKIE ASHER ([phone])[facility])[address] [place] [address] Progress Noteon 12-08-2024 Progress Note Normal [facility] Progress Note Normal [facility] Progress Note Normal [facility] 30on 12-07-2024 30 Normal [facility] [id number] 12-07-2024 [id number] Updated notes placed to [facility] via [facility] per TCC request. Normal [facility] [id number] Normal [facility] Progress Noteon 12-07-2024 Progress Note OCCUPATIONAL THERAPY [facility] Name/MRN: Ginger Weldon ([id number]) Date: 12/07/2024 OT chart reviewed. Eval attempted at 0858 and 1000 but pt refusing d/t pain. Will re-attempt at a later date. Nadiya Babcock, S/OT Normal [facility] Progress Note Normal [facility] [id number] 12-06-2024 [id number] Normal [facility] CBC (HEMOGRAM)on 12-06-2024 Erythrocyte distribution width (RBC) [Ratio] 15.2 % High 11.5-15.0 [facility] Comment on above: Performed By: #### L [id number] ####Sales Promotion Manager: MICKIE ASHER ([phone])[facility])[address] [place] [address] Hematocrit (Bld) [Volume fraction] 41.4 % Normal 40.0-52.0 [facility] Comment on above: Performed By: #### L [id number] ####Sales Promotion Manager: MICKIE ASHER ([phone])[facility])[address] [place] [address] Hemoglobin (Bld) [Mass/Vol] 13.7 g/dL Normal 13.0-18.0 [facility] Comment on above: Performed By: #### L [id number] ####Sales Promotion Manager: MICKIE ASHER ([phone])[facility])[address] [place] [address] MCH (RBC) [Entitic mass] 30.4 pg Normal 26.0-34.0 [facility] Comment on above: Performed By: #### L [id number] ####Sales Promotion Manager: MICKIE ASHER ([phone])[facility])[address] [place] [address] MCHC 33.1 % Normal 30.5-36.0 [facility] Comment on above: Performed By: #### L [id number] ####Sales Promotion Manager: MICKIE ASHER ([phone])[facility])[address] [place] [address] MCV (RBC) [Entitic vol] 92.0 fL Normal 77.0-99.0 [facility] Comment on above: Performed By: #### L [id number] ####Sales Promotion Manager: MICKIE ASHER ([phone])[facility])[address] [place] [address] Platelet mean volume (Bld) [Entitic vol] 11.0 fL Normal 9.0-12.7 [facility] Comment on above: Performed By: #### L [id number] ####Sales Promotion Manager: MICKIE ASHER ([phone])[facility])[address] [place] [address] Platelets (Bld) [#/Vol] 224 10*3/uL Normal 140-440 [facility] Comment on above: Performed By: #### L [id number] ####Sales Promotion Manager: MICKIE ASHER ([phone])[facility])[address] [place] [address] RBC (Bld) [#/Vol] 4.50 10*6/uL Normal 4.40-5.90 [facility] Comment on above: Performed By: #### L [id number] ####Sales Promotion Manager: MICKIE ASHER ([phone])[facility] ([facility])[address] [place] [address] WBC (Bld) [#/Vol] 14.1 10*3/uL High 3.6-10.7 [facility] Comment on above: Performed By: #### L [id number] ####Sales Promotion Manager: MICKIE ASHER ([phone])[facility] ([facility])[address] [place] [address] CBC panel Auto (Bld)on 12-06 Erythrocyte distribution width (RBC) [Ratio] 15.2 % High 11.5 - 15.0 % [facility] Hematocrit (Bld) [Volume fraction] 41.4 % 40.0 - 52.0 % [facility] Hemoglobin (Bld) [Mass/Vol] 13.7 g/dL 13.0 - 18.0 g/dL [facility] Interpretation and review of laboratory results Abnormal [facility] MCH (RBC) [Entitic mass] 30.4 pg 26.0 - 34.0 pg [facility] MCHC (RBC) [Mass/Vol] 33.1 % 30.5 - 36.0 % [facility] MCV (RBC) [Entitic vol] 92 fL 77.0 - 99.0 fL [facility] Platelet mean volume (Bld) [Entitic vol] 11 fL 9.0 - 12.7 fL [facility] Platelets (Bld) [#/Vol] 224 10*3/uL 140 - 440 10*3/uL [facility] RBC (Bld) [#/Vol] 4.5 10*6/uL 4.40 - 5.9 0 10*6/uL [facility] WBC (Bld) [#/Vol] 14.1 10*3/uL High 3.6 - 10.7 10*3/uL [facility] Progress Noteon 12-06-2024 Progress Note Normal [facility] Progress Note Normal [facility] 3012-05-2024 30 Normal [facility] Progress Noteon 12-05-2024 Progress Note Normal [facility] Progress Note Normal [facility] 12-04-2024 30 Normal [facility] 30 Normal [facility] [id number] 12-04-2024 [id number] Normal [facility] CBC (HEMOGRAM)on 12-04-2024 Erythrocyte distribution width (RBC) [Ratio] 15.4 % High 11.5-15.0 [facility] Comment on above: Performed By: #### L [id number] ####Sales Promotion Manager: MICKIE ASHER ([phone])[facility])[address] [place] [address] Hematocrit (Bld) [Volume fraction] 37.7 % Low 40.0-52.0 [facility] Comment on above: Performed By: #### L [id number] ####Sales Promotion Manager: MICKIE ASHER ([phone])[address] Hemoglobin (Bld) [Mass/Vol] 12.3 g/dL Low 13.0-18.0 [facility] Comment on above: Performed By: #### L [id number] ####Sales Promotion Manager: MICKIE ASHER ([phone])[address] MCH (RBC) [Entitic mass] 30.3 pg Normal 26.0-34.0 [facility] Comment on above: Performed By: #### L [id number] ####Sales Promotion Manager: MICKIE ASHER ([phone])[facility])[address] [place] [address] MCHC 32.6 % Normal 30.5-36.0 [facility] Comment on above: Performed By: #### L [id number] ####Sales Promotion Manager: MICKIE ASHER ([phone])[address] MCV (RBC) [Entitic vol] 92.9 fL Normal 77.0-99.0 [facility] Comment on above: Performed By: #### L [id number] ####Sales Promotion Manager: MICKIE ASHER ([phone])[facility] [address] Platelet mean volume (Bld) [Entitic vol] 10.9 fL Normal 9.0-12.7 [facility] Comment on above: Performed By: #### L [id number] ####Sales Promotion Manager: MICKIE ASHER ([phone])[facility])[address] [place] [address] Platelets (Bld) [#/Vol] 205 10*3/uL Normal 140-440 [facility] Comment on above: Performed By: #### L [id number] ####Sales Promotion Manager: MICKIE ASHER ([phone])[facility])[address] [place] [address] RBC (Bld) [#/Vol] 4.06 10*6/uL Low 4.40-5.90 [facility] Comment on above: Performed By: #### L [id number] ####Sales Promotion Manager: MICKIE ASHER ([phone])[facility] ([facility])[address] [place] [address] WBC (Bld) [#/Vol] 18.9 10*3/uL High 3.6-10.7 [facility] Comment on above: Performed By: #### L [id number] ####Sales Promotion Manager: MICKIE ASHER ([phone])[facility])[address] [place] [address] CBC panel Auto (Bld)on 12-04 Erythrocyte distribution width (RBC) [Ratio] 15.4 % High 11.5 - 15.0 % [facility] Hematocrit (Bld) [Volume fraction] 37.7 % Low 40.0 - 52.0 % [facility] Hemoglobin (Bld) [Mass/Vol] 12.3 g/dL Low 13.0 - 18.0 g/dL [facility] Interpretation and review of laboratory results Abnormal [facility] MCH (RBC) [Entitic mass] 30.3 pg 26.0 - 34.0 pg [facility] MCHC (RBC) [Mass/Vol] 32.6 % 30.5 - 36.0 % [facility] MCV (RBC) [Entitic vol] 92.9 fL 77.0 - 99.0 fL [facility] Platelet mean volume (Bld) [Entitic vol] 10.9 fL 9.0 - 12.7 fL [facility] Platelets (Bld) [#/Vol] 205 10*3/uL 140 - 440 10*3/uL [facility] RBC (Bld) [#/Vol] 4.06 10*6/uL Low 4.40 - 5.9 0 10*6/uL [facility] WBC (Bld) [#/Vol] 18.9 10*3/uL High 3.6 - 10.7 10*3/uL [facility] Consulton 12-04-2024 Consult Normal [facility] Progress Noteon 12-04-2024 Progress Note Normal [facility] Progress Note Nutrition rescreen completed. Chart reviewed. Patient to be monitored and followed by the diet video technician. DHIRAJ De Jesus Normal [facility] Progress Note Normal [facility] Progress Note Normal [facility] Progress Note Normal [facility] [id number] 12-03-2024 [id number] Normal [facility] 30on 12-03-2024 30 Normal [facility] 30 Normal [facility] Anesthesia Noteon 12-03-2024 Anesthesia Note Normal [facility] BASIC METABOLIC PANELon 11-15 Anion gap [Moles/Vol] 9 mmol/L Normal 3-13 [facility] Comment on above: Performed By: #### L AB15 ####Sales Promotion Manager: MICKIE ASHER ([phone])[address] Calcium [Mass/Vol] 9.1 mg/dL Normal 8.8-10.0 [facility] Comment on above: Performed By: #### L AB15 ####Sales Promotion Manager: MICKIE ASHER ([phone])[facility])[address] [place] [address] Chloride [Moles/Vol] 103 mmol/L Normal 98-107 [facility] Comment on above: Performed By: #### L [id number] ####Sales Promotion Manager: MICKIE ASHER ([phone])[facility] ([facility])[address] [place] [address] CO2 [Moles/Vol] 23 mmol/L Normal 23-31 [facility] Comment on above: Performed By: #### L [id number] ####Sales Promotion Manager: MICKIE ASHER ([phone])[facility] ([facility])[address] [place] [address] Creatinine [Mass/Vol] 0.79 mg/dL Normal 0.72-1.25 [facility] Comment on above: Performed By: #### L [id number] ####Sales Promotion Manager: MICKIE ASHER ([phone])[facility] ([facility])[address] [place] [address] GLOMERULAR FILTRATION RATE ML/MIN/1.73 SQ M.PREDICTED >90.0 Normal >60.0 [facility] Comment on above: Result Comment: Calc ulation based on the Chronic Kidney Disease Epidemiology Collaboration (CKD-EPI) equation refit without adjustment for race Performed By: #### L [id number] ####Sales Promotion Manager: MICKIE ASHER ([phone])[facility] ([facility])[address] [place] [address] Glucose [Mass/Vol] 159 mg/dL High 82-115 [facility] Comment on above: Performed By: #### L [id number] ####Sales Promotion Manager: MICKIE ASHER ([phone])[facility] ([facility])[address] [place] [address] Potassium [Moles/Vol] 4.1 mmol/L Normal 3.5-5.1 [facility] Comment on above: Result Comment: [facility] potassium values may be up to 0.5 mmol/L lower than serum values. Performed By: #### L [id number] ####Sales Promotion Manager: MICKIE ASHER ([phone])[facility] ([facility])[address] [place] [address] Sodium [Moles/Vol] 135 mmol/L Low 136-145 [facility] Comment on above: Performed By: #### L [id number] ####Sales Promotion Manager: MICKIE ASHER ([phone])[facility] ([facility])[address] [place] [address] Urea nitrogen [Mass/Vol] 11 mg/dL Normal 9-23 [facility] Comment on above: Performed By: #### L [id number] ####Sales Promotion Manager: MICKIE ASHER ([phone])[facility] ([facility])[address] [place] [address] Basic metabolic 1998 panelon 12-03-2024 Anion gap [Moles/Vol] 9 mmol/L 3 - 13 mmol/L [facility] Calcium [Mass/Vol] 9.1 mg/dL 8.8 - 10. 0 mg/dL [facility] Chloride [Moles/Vol] 103 mmol/L 98 - 10 7 mmol/L [facility] CO2 [Moles/Vol] 23 mmol/L 23 - 31 mmol/L [facility] Creatinine [Mass/Vol] 0.79 mg/dL 0.72 - 1.25 mg/dL [facility] GFR/1.73 sq M.predicted (S/P/Bld) [Vol rate/Area] - PINF [facility] Comment on above: Calculation based on the Chronic Kidney Disease Epidemiology Collaboration (CKD-EPI) equation refit without adjustment for race Glucose [Mass/Vol] 159 mg/dL High 82 - 115 mg/dL [facility] Interpretation and review of laboratory results Abnormal [facility] Potassium [Moles/Vol] 4.1 mmol/L 3.5 - 5.1 mmol/L [facility] Comment on above: Plasma potassium eliana ues may be up to 0.5 mmol/L lower than serum values. Sodium [Moles/Vol] 135 mmol/L Low 136 - 145 mmol/L [facility] Urea nitrogen [Mass/Vol] 11 mg/dL 9 - 23 mg/dL [facility] CBC W Auto Differential pane l (Bld)on 12-03-2024 Basophils (Bld) [#/Vol] 0 10*3/uL 0.0 - 0.2 10*3/uL [facility] Basophils/100 WBC (Bld) 0.2 % 0.0 - 2.0 % [facility] Eosinophils (Bld) [#/Vol] 0 10*3/uL 0.0 - 0.5 10*3/uL [facility] Eosinophils/100 WBC (Bld) 0 % 0.0 - 6.0 % [facility] Erythrocyte distribution width (RBC) [Ratio] 15.2 % High 11.5 - 15.0 % [facility] Hematocrit (Bld) [Volume fraction] 36.7 % Low 40.0 - 52.0 % [facility] Hemoglobin (Bld) [Mass/Vol] 12.1 g/dL Low 13.0 - 18.0 g/dL [facility] Immature granulocytes (Bld) [#/Vol] 0.1 10*3/uL High NINF - 0.1 10*3/uL [facility] Immature granulocytes/100 WBC (Bld) 0.5 % 0.0 - 2.0 % [facility] Interpretation and review of laboratory results Abnormal [facility] Lymphocytes (Bld) [#/Vol] 0.8 10*3/uL Low 1.0 - 4.3 10*3/uL [facility] Lymphocytes/100 WBC (Bld) 5.7 % Low 15.0 - 45.0 % [facility] MCH (RBC) [Entitic mass] 30.1 pg 26.0 - 34.0 pg [facility] MCHC (RBC) [Mass/Vol] 33 % 30.5 - 36.0 % [facility] MCV (RBC) [Entitic vol] 91.3 fL 77.0 - 99.0 fL [facility] Monocytes (Bld) [#/Vol] 0.6 10*3/uL 0.0 - 0.9 10*3/uL [facility] Monocytes/100 WBC (Bld) 4.5 % Low 5.0 - 13.0 % [facility] Neutrophils (Bld) [#/Vol] 12.4 10*3/uL High 1.8 - 7.5 10*3/uL [facility] Neutrophils/100 WBC (Bld) 89.1 % High 38.0 - 82.0 % [facility] Nucleated RBC/100 WBC (Bld) [Ratio] 0 % [facility] Platelet mean volume (Bld) [Entitic vol] 10.9 fL 9.0 - 12.7 fL [facility] Platelets (Bld) [#/Vol] 235 10*3/uL 140 - 440 10*3/uL [facility] RBC (Bld) [#/Vol] 4.02 10*6/uL Low 4.40 - 5.9 0 10*6/uL [facility] WBC (Bld) [#/Vol] 14 10*3/uL High 3.6 - 10.7 10*3/uL [facility] CBC WITH AUTO DIFFERENTIALon 12-03-2024 Basophils (Bld) [#/Vol] 0.0 10*3/uL Normal 0.0-0.2 [facility] Comment on above: Performed By: #### L [id number] ####Sales Promotion Manager: MICKIE ASHER ([phone])[facility] ([facility])[address] [place] [address] Basophils/100 WBC (Bld) 0.2 % Normal 0.0-2.0 [facility] Comment on above: Performed By: #### L [id number] ####Sales Promotion Manager: MICKIE ASHER ([phone])[facility])[address] [place] [address] Eosinophils (Bld) [#/Vol] 0.0 10*3/uL Normal 0.0-0.5 [facility] Comment on above: Performed By: #### L [id number] ####Sales Promotion Manager: MICKIE ASHER ([phone])[facility])[address] [place] [address] Eosinophils/100 WBC (Bld) 0.0 % Normal 0.0-6.0 [facility] Comment on above: Performed By: #### L [id number] ####Sales Promotion Manager: MICKIE ASHER ([phone])[facility])[address] [place] [address] Erythrocyte distribution width (RBC) [Ratio] 15.2 % High 11.5-15.0 [facility] Comment on above: Performed By: #### L [id number] ####Sales Promotion Manager: MICKIE ASHER ([phone])[facility])[address] [place] [address] Hematocrit (Bld) [Volume fraction] 36.7 % Low 40.0-52.0 [facility] Comment on above: Performed By: #### L [id number] ####Sales Promotion Manager: MICKIE ASHER ([phone])[facility])[address] [place] [address] Hemoglobin (Bld) [Mass/Vol] 12.1 g/dL Low 13.0-18.0 [facility] Comment on above: Performed By: #### L [id number] ####Sales Promotion Manager: MICKIE ASHER ([phone])[facility])[address] [place] [address] IMMATURE GRANS % 0.5 % Normal 0.0-2.0 [facility] Comment on above: Performed By: #### L [id number] ####Sales Promotion Manager: MICKIE ASHER ([phone])[address] IMMATURE GRANS ABSOLUTE 0.1 10*3/uL High <0.1 [facility] Comment on above: Performed By: #### L [id number] ####Sales Promotion Manager: MICKIE ASHER ([phone])[facility])[address] [place] [address] Lymphocytes (Bld) [#/Vol] 0.8 10*3/uL Low 1.0-4.3 [facility] Comment on above: Performed By: #### L [id number] ####Sales Promotion Manager: MICKIE ASHER ([phone])[facility])[address] [place] [address] Lymphocytes/100 WBC (Bld) 5.7 % Low 15.0-45.0 [facility] Comment on above: Performed By: #### L [id number] ####Sales Promotion Manager: MICKIE ASHER ([phone])[facility])[address] [place] [address] MCH (RBC) [Entitic mass] 30.1 pg Normal 26.0-34.0 [facility] Comment on above: Performed By: #### L [id number] ####Sales Promotion Manager: MICKIE ASHER ([phone])[facility] ([facility])[address] [place] [address] MCHC 33.0 % Normal 30.5-36.0 [facility] Comment on above: Performed By: #### L [id number] ####Sales Promotion Manager: MICKIE ASHER ([phone])[facility] ([facility])[address] [place] [address] MCV (RBC) [Entitic vol] 91.3 fL Normal 77.0-99.0 [facility] Comment on above: Performed By: #### L [id number] ####Sales Promotion Manager: MICKIE ASHER ([phone])[facility] ([facility])[address] [place] [address] Monocytes (Bld) [#/Vol] 0.6 10*3/uL Normal 0.0-0.9 [facility] Comment on above: Performed By: #### L [id number] ####Sales Promotion Manager: MICKIE ASHER ([phone])[facility] ([facility])[address] [place] [address] Monocytes/100 WBC (Bld) 4.5 % Low 5.0-13.0 [facility] Comment on above: Performed By: #### L [id number] ####Sales Promotion Manager: MICKIE ASHER ([phone])[facility] ([facility])[address] [place] [address] NEUTROPHILS ABSOLUTE 12.4 10*3/uL High 1.8-7.5 [facility] Comment on above: Performed By: #### L [id number] ####Sales Promotion Manager: MICKIE ASHER ([phone])[facility] ([facility])[address] [place] [address] Neutrophils/100 WBC (Bld) 89.1 % High 38.0-82.0 [facility] Comment on above: Performed By: #### L [id number] ####Sales Promotion Manager: MICKIE ASHER ([phone])[facility] ([facility])[address] [place] [address] NRBC 0.0 /100 WBCs Normal 0.0-2.0 [facility] Comment on above: Performed By: #### L [id number] ####Sales Promotion Manager: MICKIE ASHER ([phone])[facility] ([facility])[address] [place] [address] Platelet mean volume (Bld) [Entitic vol] 10.9 fL Normal 9.0-12.7 [facility] Comment on above: Performed By: #### L [id number] ####Sales Promotion Manager: MICKIE ASHER ([phone])[facility] ([facility])[address] [place] [address] Platelets (Bld) [#/Vol] 235 10*3/uL Normal 140-440 [facility] Comment on above: Performed By: #### L [id number] ####Sales Promotion Manager: MICKIE ASHER ([phone])[facility] ([facility])[address] [place] [address] RBC (Bld) [#/Vol] 4.02 10*6/uL Low 4.40-5.90 [facility] Comment on above: Performed By: #### L [id number] ####Sales Promotion Manager: MICKIE ASHER ([phone])[facility] ([facility])[address] [place] [address] WBC (Bld) [#/Vol] 14.0 10*3/uL High 3.6-10.7 [facility] Comment on above: Performed By: #### L [id number] ####Sales Promotion Manager: MICKIE ASHER ([phone])[facility] ([facility])[address] [place] [address] CT LUMBAR SPINE WO IV CONTRA STon 12-03-2024 CT LUMBAR SPINE WO IV CONTRAST Normal [facility] CT Lumbar spine WO contrasto n 12-03-2024 1. Postsurgical changes lower lumbar spine as discussed. Report Dictated on Electronically Signed By: Akira Valle MD Electronically Signed Date/Time: 12/03/2024 12:20 PM EDT [facility] Patient Name: GINGER WELDON : 1960 Exam Date/Time: 12/03/2024 12:01 Procedure: CT LUMBAR SPINE WO IV CONTRAST Ordering Provider: VICTORIA JENNIFER Reason For Exam: weakness PO Reasons for examination: Weakness with right foot drop, lumbar spine surgery yesterday. Axial scans of the lumbar spine performed from T11-12 to the sacrum, with sagittal and coronal reconstructions. Dose reduction was employed with automated exposure control. There is normal alignment of the lumbar vertebral bodies on the sagittal reconstructions except for first degree spinal listhesis at L5-S1. There is no evidence of fracture or subluxation in the lumbar spine with interbody fusion at T11-T12. The paravertebral soft-tissues are normal with postoperative changes with scattered mainly subcutaneous soft tissue air and skin clark. Degenerative disc disease changes are seen at last two levels with surgery with disc prosthesis and pedicle screws/lateral fusion bone with surgical drain in place into the neural canal at L4-L5 along the left-hand side. Some high density material is present in the neural canal at the L4-L5 level along the left-hand side. Incidental mild left adrenal hypertrophy, trace atelectatic changes lung bases, trace presacral edema. [facility] Akira Valle MD - 12/03/2024 Patient Name: GINGER WELDON : 1960 Exam Date/Time: 12/03/2024 12:01 Procedure: CT LUMBAR SPINE WO IV CONTRAST Ordering Provider: VICTORIA JENNIFER Reason For Exam: weakness PO Reasons for examination: Weakness with right foot drop, lumbar spine surgery yesterday. Axial scans of the lumbar spine performed from T11-12 to the sacrum, with sagittal and coronal reconstructions. Dose reduction was employed with automated exposure control. There is normal alignment of the lumbar vertebral bodies on the sagittal reconstructions except for first degree spinal listhesis at L5-S1. There is no evidence of fracture or subluxation in the lumbar spine with interbody fusion at T11-T12. The paravertebral soft-tissues are normal with postoperative changes with scattered mainly subcutaneous soft tissue air and skin clark. Degenerative disc disease changes are seen at last two levels with surgery with disc prosthesis and pedicle screws/lateral fusion bone with surgical drain in place into the neural canal at L4-L5 along the left-hand side. Some high density material is present in the neural canal at the L4-L5 level along the left-hand side. Incidental mild left adrenal hypertrophy, trace atelectatic changes lung bases, trace presacral edema. IMPRESSION: 1. Postsurgical changes lower lumbar spine as discussed. Report Dictated on Electronically Signed By: Akira Valle MD Electronically Signed Date/Time: 12/03/2024 12:20 PM EDT [facility] Radiology Study observation (narrative) [facility] CT Lumbar spine WO contrastO rdered By: Akira Valle on 12-03-2024 [facility] Work Phone: Nursing Noteon 12-03-2024 Nursing Note Normal [facility] Progress Noteon 12-03-2024 Progress Note Normal [facility] Progress Note Normal [facility] Progress [facility] Normal [facility] Progress Note Normal [facility] Progress Note OCCUPATIONAL THERAPY [facility] Name/MRN: Ginger Weldon ([id number]) Date: 12/03/2024 OT attempted but PT working with pt at this time. Will re-attempt as schedule permits. Digna Lomas, OTR/L Normal [facility] 30on 12-02-2024 30 Normal [facility] Anesthesia Noteon 12-02-2024 Anesthesia Note Normal [facility] Consulton 12-02-2024 Consult Normal [facility] No Panel Informationon 12-02 There is no interpretation needed for this exam. IMAGING Op Noteon 12-02-2024 Op Note Normal [facility] Progress Noteon 12-02-2024 Progress Note Updated patient spouse by phone Normal [facility] 36on 11-30-2024 36 I reviewed his PDMP and refilled his medication. He can pick it up at his pharmacy. Normal [facility] CBC (INCLUDES DIFF/PLT)on Basophils (Bld) [#/Vol] 0.102 10*3/uL Normal 0-200 [facility] Comment on above: Performed By: #### 6 399, 86216 #### [facility] of [place] [address] Sales Promotion Manager: Steve Tobar MD Basophils/100 WBC (Bld) 1.2 % Normal [facility] Comment on above: Performed By: #### 6 399, 08967 #### [facility] [place] [address] Sales Promotion Manager: Steve Tobar MD Eosinophils (Bld) [#/Vol] 0.213 10*3/uL Normal 15-500 [facility] Comment on above: Performed By: #### 6 399, 93143 #### [facility] [place] [address] Sales Promotion Manager: Steve Tobar MD Eosinophils/100 WBC (Bld) 2.5 % Normal [facility] Comment on above: Performed By: #### 6 399, 49960 #### [facility] [place] [address] Sales Promotion Manager: Steve Tobar MD Erythrocyte distribution width (RBC) [Ratio] 14.8 % Normal 11.0-15.0 [facility] Comment on above: Performed By: #### 6 399, 92970 #### [facility] [place] [address] Sales Promotion Manager: Steve Tobar MD Hematocrit (Bld) [Volume fraction] 43.8 % Normal 38.5-50.0 [facility] Comment on above: Performed By: #### 6 399, 96720 #### [facility] [place] [address] Sales Promotion Manager: Steve Tobar MD Hemoglobin (Bld) [Mass/Vol] 14.1 g/dL Normal 13.2-17.1 [facility] Comment on above: Performed By: #### 6 399, 08357 #### [facility] of [address] [address] Sales Promotion Manager: Steev Tobar MD Lymphocytes (Bld) [#/Vol] 1.224 10*3/uL Normal 850-3900 [facility] Comment on above: Performed By: #### 6 399, 87546 #### [facility] [place] [address] Sales Promotion Manager: Steve Tobar MD Lymphocytes/100 WBC (Bld) 14.4 % Normal [facility] Comment on above: Performed By: #### 6 399, 66812 #### [facility] [place] [address] Sales Promotion Manager: Steve Tobar MD MCH (RBC) [Entitic mass] 31.0 pg Normal 27.0-33.0 [facility] Comment on above: Performed By: #### 6 399, 01690 #### [facility] [place] [address] Sales Promotion Manager: Steve Tobar MD MCHC (RBC) [Mass/Vol] 32.2 g/dL Normal 32.0-36.[address] [facility] Comment on above: Result Comment: For adults, a slight decrease in the calculated MCHC value (in the range of 30 to 32 g/dL) is most likely not clinically significant; however, it should be interpreted with caution in correlation with other red cell parameters and the patient's clinical condition. Performed By: #### 6 399, 95489 #### [facility] [place] [address] Sales Promotion Manager: Steve Tobar MD MCV (RBC) [Entitic vol] 96.3 fL Normal 80.0-100.0 [facility] Comment on above: Performed By: #### 6 399, 77448 #### [facility] [place] [address] Sales Promotion Manager: Steve Tobar MD Monocytes (Bld) [#/Vol] 0.578 10*3/uL Normal 200-950 [facility] Comment on above: Performed By: #### 6 399, 04888 #### [facility] of [address], [address] [place] [address] Sales Promotion Manager: Steve Tobar MD Monocytes/100 WBC (Bld) 6.8 % Normal [facility] Comment on above: Performed By: #### 6 399, 66029 #### [facility] of [address], [address] [place] [address] Sales Promotion Manager: Steve Tobar MD Neutrophils (Bld) [#/Vol] 6.384 10*3/uL Normal 4149-0472 [facility] Comment on above: Performed By: #### 6 399, 18475 #### [facility] of [address], [address] [place] [address] Sales Promotion Manager: Steve Tobar MD Neutrophils/100 WBC (Bld) 75.1 % Normal [facility] Comment on above: Performed By: #### 6 399, 39893 #### [facility] [place] [address] Sales Promotion Manager: Steve Tobar MD Platelet mean volume (Bld) [Entitic vol] 10.6 fL Normal 7.5-12.5 [facility] Comment on above: Performed By: #### 6 399, 30782 #### [facility] [place] [address] Sales Promotion Manager: Steve Tobar MD Platelets (Bld) [#/Vol] 277 10*3/uL Normal 140-400 [facility] Comment on above: Performed By: #### 6 399, 44873 #### [facility] of [address], [address] [place] [address] Sales Promotion Manager: Steve Tobar MD RBC (Bld) [#/Vol] 4.55 10*6/uL Normal 4.20-5.80 [facility] Comment on above: Performed By: #### 6 399, 59259 #### [facility] of [address], [address] [place] [address] Sales Promotion Manager: Steve Tobar MD WBC (Bld) [#/Vol] 8.5 10*3/uL Normal 3.8-10.8 [facility] Comment on above: Performed By: #### 6 399, 88884 #### [facility] [place] [address] Sales Promotion Manager: Steve Tobar MD COMPREHENSIVE METABOLIC PANE L W/ANION GAPon 11-27-2024 Albumin [Mass/Vol] 4.2 g/dL Normal 3.6-5.1 [facility] Comment on above: Order Comment: FASTI NG:NO FASTING: NO Performed By: #### 6 399, 50069 #### [facility] [place] [address] Sales Promotion Manager: Steve Tobar MD ALP [Catalytic activity/Vol] 101 U/L Normal 35-144 [facility] Comment on above: Order Comment: FASTI NG:NO FASTING: NO Performed By: #### 6 399, 37253 #### [facility] [place] [address] Sales Promotion Manager: Steve Tobar MD ALT [Catalytic activity/Vol] 11 U/L Normal 9-46 [facility] Comment on above: Order Comment: FASTI NG:NO FASTING: NO Performed By: #### 6 399, 41487 #### [facility] [place] [address] Sales Promotion Manager: Steve Tobar MD AST [Catalytic activity/Vol] 12 U/L Normal 10-35 [facility] Comment on above: Order Comment: FASTI NG:NO FASTING: NO Performed By: #### 6 399, 59284 #### [facility] [place] [address] Sales Promotion Manager: Steve Tobar MD Bilirubin [Mass/Vol] 0.5 mg/dL Normal 0.2-1.2 [facility] Comment on above: Order Comment: FASTI NG:NO FASTING: NO Performed By: #### 6 399, 47758 #### [facility] [address], [address] [place] [address] Sales Promotion Manager: Steve Tobar MD Calcium [Mass/Vol] 9.2 mg/dL Normal 8.6-10.3 [facility] Comment on above: Order Comment: FASTI NG:NO FASTING: NO Performed By: #### 6 399, 90815 #### [facility] [place] [address] Sales Promotion Manager: Steve Tobar MD Chloride [Moles/Vol] 104 mmol/L Normal 98-110 [facility] Comment on above: Order Comment: FASTI NG:NO FASTING: NO Performed By: #### 6 399, 27682 #### [facility] [place] [address] Sales Promotion Manager: Steve Tobar MD CO2 [Moles/Vol] 25 mmol/L Normal 20-32 [facility] Comment on above: Order Comment: FASTI NG:NO FASTING: NO Performed By: #### 6 399, 89136 #### [facility] [place] [address] Sales Promotion Manager: Steve Tobar MD Creatinine [Mass/Vol] 0.89 mg/dL Normal 0.70-1.35 [facility] Comment on above: Order Comment: FASTI NG:NO FASTING: NO Performed By: #### 6 399, 68737 #### [facility] [place] [address] Sales Promotion Manager: Steve Tobar MD ELECTROLYTE BALANCE 11 mmol/L (calc) Normal 7-17 [facility] Comment on above: Order Comment: FASTI NG:NO FASTING: NO Performed By: #### 6 399, 16807 #### [facility] [place] [address] Sales Promotion Manager: Steve Tobar MD GFR/1.73 sq M.predicted among non-blacks MDRD (S/P/Bld) [Vol rate/Area] 96 mL/min/{1.73_m2} Normal > OR = 60 [facility] Comment on above: Order Comment: FASTI NG:NO FASTING: NO Performed By: #### 6 399, 55180 #### [facility] [address], [address] [place] [address] Sales Promotion Manager: Steve Tobar MD Glucose [Mass/Vol] 90 mg/dL Normal 65-99 [facility] Comment on above: Order Comment: FASTI NG:NO FASTING: NO Result Comment: Fasting reference interval Performed By: #### 6 399, [id number] #### [facility] [address], [address] [place] [address] Sales Promotion Manager: Steve Tobar MD Potassium [Moles/Vol] 4.4 mmol/L Normal 3.5-5.3 [facility] st Diagn[facility] Comment on above: Order Comment: FASTI NG:NO FASTING: NO Performed By: #### 6 399, 15195 #### [facility] [address], [address] [place] [address] Sales Promotion Manager: Steve Tobar MD Protein [Mass/Vol] 6.7 g/dL Normal 6.1-8.1 [facility] Comment on above: Order Comment: FASTI NG:NO FASTING: NO Performed By: #### 6 399, [id number] #### [facility] [address], [address] [place] [address] Sales Promotion Manager: Steve Tobar MD Sodium [Moles/Vol] 140 mmol/L Normal 135-146 [facility] Comment on above: Order Comment: FASTI NG:NO FASTING: NO Performed By: #### 6 399, [id number] #### [facility] [address], [address] [place] [address] Sales Promotion Manager: Steve Tobar MD Urea nitrogen [Mass/Vol] 12 mg/dL Normal 7-25 [facility] Comment on above: Order Comment: FASTI NG:NO FASTING: NO Performed By: #### 6 399, [id number] #### [facility] [address], [address] [place] [address] Sales Promotion Manager: Steve Tobar MD HEMOGLOBIN A1c WITH eAGon eAG (mmol/L) 7.0 mmol/L Normal [facility] Comment on above: Performed By: #### 6 399, 45412 #### [facility] [place] [address] Sales Promotion Manager: Steve Tobar MD HbA1c (Bld) [Mass fraction] 6.0 % High <5.7 [facility] Comment on above: Result Comment: For someone without known diabetes, a hemoglobin A1c value between 5.7% and 6.4% is consistent with prediabetes and should be confirmed with a follow-up test. For someone with known diabetes, a value <7% indicates that their diabetes is well controlled. A1c targets should be individualized based on duration of diabetes, age, comorbid conditions, and other considerations. This assay result is consistent with an increased risk of diabetes. Currently, no consensus exists regarding use of hemoglobin A1c for diagnosis of diabetes for children. Performed By: #### 6 399, 23235 #### [facility] [address], [address] [place] [address] Sales Promotion Manager: Steve Tobar MD Magnesium [Mass/Vol] 126 mg/dL [facility] Comment on above: Performed By: #### 6 399, 93978 #### [facility] [place] [address] Sales Promotion Manager: Steve Tobar MD 36on 11-26-2024 36 called [facility] at [phone] and spoke with Tena Navarro. She stated CPT codes 65582 and 06794 are included due to them being instrumentation codes, but you can't see them on the auth approval; however, they are included. Call ref#[id number]. Normal [facility] 36 Normal [facility] ECG 12 lead (Ancillary Perfo rmed)Ordered By: Hema Bull on 11-26-2024 Atrial Rate 73 BPM [facility] Work Phone: P [place] 26 degrees [facility] Work Phone: P Offset 211 ms [facility] Work Phone: P Onset 143 ms [facility] Work Phone: MT Interval 152 ms [facility] Work Phone: Q Onset 219 ms [facility] Work Phone: QRS Count 12 beats [facility] Work Phone: QRS Duration 82 ms [facility] Work Phone: QT Interval 396 ms [facility] Work Phone: QTC Calculation(Bazett) 436 ms [facility] Work Phone: QTC Fredericia 423 ms [facility] Work Phone: R [place] 22 degrees [facility] Work Phone: T [place] 38 degrees [facility] Work Phone: T Offset 417 ms [facility] Work Phone: Ventricular Rate 73 BPM [facility] Work Phone: [facility] Work Phone: ECG 12 lead (Ancillary Perfo rmed)on 11-26-2024 Sinus rhythm with Premature atrial complexes with Aberrant conduction Otherwise normal ECG No previous ECGs available Confirmed by Hema Bull ([id number]) on 11/26/2024 12:01:18 AM Hema Kwan MD - 11/26/2024 Sinus rhythm with Premature atrial complexes with Aberrant conduction Otherwise normal ECG No previous ECGs available Confirmed by Hema Bull ([id number]) on 11/26/2024 12:01:18 AM [facility] Work Phone: ECG 12-LEADon 11-25-2024 ECG 12-LEAD Ventricular Rate 73 Atrial Rate 73 P-R Interval 152 QRS Duration 82 Q-T Interval 396 QTC Calculation(Bazett) 436 P [place] 26 R [place] 22 T [place] 38 QRS Count 12 Q Onset 219 P Onset 143 P Offset 211 T Offset 417 QTC Fredericia 423 Diagnosis Sinus rhythm with Premature atrial complexes with Aberrant conduction Otherwise normal ECG No previous ECGs available Confirmed by Hema Bull ([id number]) on 11/26/2024 12:01:18 AM [facility] 11-24-2024 36 Clearance form and the specific labs and EKG faxed to [phone]. Spoke with JESS at [phone] [place] [id number] 36 Called and lvm for Claudia with Iris' note. Also sent [employer] message as well. [facility] 11-16-2024 He can do PAT through his PCP. Please let him know that his PCP will need to order an updated CBC, BMP, hemoglobin A1C, and EKG. They notes and results will need to be sent to us. Thanks! [place] [id number] 36 [place] [address] Pt. called stating that patient is scheduled for surgery December 02. states for the past 3 or 4 days patient has had urgent mucus covered bowl movements. is concerned about whether this will delay his surgery or move his surgery date up. [facility] 11-10-2024 36 Auth submitted via [employer]. Tracking#[id number] . Per patient no pt or pain management in last 12 months. [place] [id number] 36 ----- Message from Charly Kilgore MD sent at 10/29/2024 2:53 PM EDT ----- Posterior lumbar 5-sacral 1 decompression, fusion, pedicle screws, possible cage insertion 3 hours 2 nights [id number] [id number] [place] [id number] 36 [facility] 36 Pt will need to check with the provider that ordered the EMG. Thanks [place] [id number] Patient is scheduled for EMG on Saturday. Patient's is inquiring if this study is necessary after today's office visit. [place] [address] Left message relaying information as written [place] [address] Unfortunately it is harder to find medications that treat the numbness effectively. Gabapentin is probably the best option for treatment of his symptoms at this time. I did refill this. Normal [facility] 36 Patient is requesting a refill of gabapentin 330mg TID. He states this helps his pain, but has tingling in his foot. Inquiring if there is anything you can give to help alleviate this as the gabapentin does not help. Normal [facility] Progress Noteon 10-29-2024 Progress Note Normal [facility] 36on 10-27-2024 36 Pt. MRI of lumbar done on 10/15 was sent from and is in PACS [facility] 36on 10-23-2024 36 Requested MRI Spine done at [facility] on 10/15/24 to be sent to [facility] via PACS [facility] MR LUMBAR SPINE WO IV CONTRA STon 10-15-2024 MR LUMBAR SPINE WO IV CONTRAST Interpreted By: Rohini Licea, STUDY: MR LUMBAR SPINE WO IV CONTRAST; 10/15/2024 5:32 pm INDICATION: Signs/Symptoms:LUMB AR RADICULOPATHY INTERVETEBRAL DISC DEGENERATION. History of prostate cancer. COMPARISON: None. ACCESSION NUMBER(S): [id number] ORDERING CLINICIAN: YOUNG MALDONADO TECHNIQUE: Sagittal T1, T2, STIR, axial T1 and T2 weighted images of the lumbar spine were acquired. FINDINGS: NUMBERIN lumbar-type vertebral bodies, the last well-formed disc space is labeled L5-S1. ALIGNMENT: Slight retrolisthesis of L4-L5. Mild grade 1 anterolisthesis of L5-S1 with associated bilateral pars defects. VERTEBRAE: Vertebral body heights are maintained. Partial fusion of the T11 and T12 vertebral bodies. Diffuse T1 hyperintensity of the L4, L5 vertebral bodies and the sacrum likely related to postradiation changes in this patient with a history of prostate cancer. No suspicious osseous lesions. Mild congenital spinal stenosis. CONUS: The lower thoracic cord appears unremarkable. The conus terminates at . The cauda equina is unremarkable. SOFT TISSUES: Unremarkable. DISC LEVELS: T12-L1: Mild disc bulge, bilateral facet arthropathy. No spinal canal or foraminal narrowing. L1-2: Bilateral facet arthropathy and ligamentum flavum thickening. No spinal canal or foraminal narrowing. L2-3: Bilateral facet arthropathy and ligamentum flavum thickening. No spinal canal or foraminal narrowing. L3-4: Bilateral facet arthropathy and ligamentum flavum thickening. No spinal canal or foraminal narrowing. L4-5: Disc bulge with annular fissure, bilateral facet arthropathy and ligamentum flavum thickening. No spinal canal or foraminal narrowing. L5-S1: Grade 1 anterolisthesis with bilateral pars defects. Disc bulge with annular fissure/uncovering of the disc, bilateral facet arthropathy and ligamentum flavum thickening. No spinal canal stenosis. Moderate bilateral foraminal stenosis. OTHER: None. IMPRESSION: 1. Multilevel degenerative changes, worst at L5-S1 where there is also a grade 1 anterolisthesis with bilateral pars defects. Moderate bilateral foraminal stenosis at this level. No spinal canal stenosis. 2. No spinal canal or foraminal stenosis at the remaining levels. I personally reviewed the images/study and I agree with the findings as stated. MACRO: None Signed by: Rohini Licea 10/16/2024 10:06 AM Dictation workstation: [id number] [facility] PSA, TOTALon 07-30-2024 PSA, TOTAL 0.04 ng/mL Normal < OR = 4.00 [facility] Comment on above: Order Comment: FASTI NG:NO FASTING: NO Result Comment: The total PSA value from this assay system is standardized against the WHO standard. The test result will be approximately 20% lower when compared to the equimolar-standardized total PSA (Everett Alisa). Comparison of serial PSA results should be interpreted with this fact in mind. This test was performed using the Siemens chemiluminescent method. Values obtained from different assay methods cannot be used interchangeably. PSA levels, regardless of value, should not be interpreted as absolute evidence of the presence or absence of disease. Performed By: #### 5 363 #### [facility] [address], [address] [place] [address] Sales Promotion Manager: Steve Tobar MD Surgical pathology studyon 1 07-05-2023 Surgical pathology study Pathology report.total SEE COMMENT Surgical Pathology Case: [id number] Authorizing Provider: Price Reeves MD Collected: 05/05/2024 1138 Ordering Location: [facility] Received: 05/05/2024 1643 Center OR Pathologist: Amita Gomez MD Specimen: PROSTATE TURP, PROSTATE CHIPS Path report.final diagnosis SEE COMMENT A. Prostate chips (transurethral resection): Prostatic tissue with glandular hyperplasia and stromal hypertrophy. Laboratory comment By the signature on this report, the individual or group listed as making the Final Interpretation/Diag nosis certifies that they have reviewed this case. 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 Distributing Clerk sections of the prostate are submitted in 5 cassettes. MRS Normal [facility] Comment on above: Order Comment: Pre-o p diagnosis: Stricture of male urethra, unspecified stricture type [N35.919] Urinary retention [R33.9] Prostate specific Agon 02-26 Prostate specific Ag [Mass/Vol] 0.01 ng/mL Normal <=4.00 [facility] Comment on above: Order Comment: The DA requires that the method used for PSA assay be reported to the physician. Values obtained with different assay methods must not be used interchangeably. This test was performed at [facility] using the Better Weekdays PSA assay is a two-site immunoenzymatic sandwich assay. The assay is approved for measurement of prostate-specific antigen (PSA)in serum and may be used in conjunction with a digital rectal examination in men 50 years and older as an aid in detection of prostate cancer. 1-Phonw-hjeyxujsa inhibitors (e.g. Proscar, Finasteride, Avodart, Dutasteride and Polly) for the treatment of BPH have been shown to lower PSA levels by an average of 50% after 6 months of treatment. Performed By: #### 2 857-1 #### ELI IMTIAZ ([id number]) [facility] ([facility]) [address] [place] [address] Prostate specific Agon 07-25 Prostate specific Ag [Mass/Vol] 0.05 ng/mL Normal <=4.00 [facility] Comment on above: Order Comment: The F DA requires that the method used for PSA assay be reported to the physician. Values obtained with different assay methods must not be used interchangeably. This test was performed at [facility] using the Better Weekdays PSA assay is a two-site immunoenzymatic sandwich assay. The assay is approved for measurement of prostate-specific antigen (PSA)in serum and may be used in conjunction with a digital rectal examination in men 50 years and older as an aid in detection of prostate cancer. 5-Fplbl-iuuzglbgc inhibitors (e.g. Proscar, Finasteride, Avodart, Dutasteride and Polly) for the treatment of BPH have been shown to lower PSA levels by an average of 50% after 6 months of treatment. Performed By: #### 2 857-1 #### ELI IMTIAZ ([id number]) [facility] ([facility]) [address] [place] [address] POC Urinalysis Dipstick, Aut oon 05-21-2023 Bilirubin Ql (U) Negative Negative [facility] Glucose Ql (U) Negative Normal, Negative mg/dL [facility] Hemoglobin Ql (U) Large Abnormal Negative [facility] Interpretation and review of laboratory results Abnormal [facility] Ketones Ql (U) Negative Negative mg/dL [facility] Leukocyte esterase Test strip Ql (U) Small Abnormal Negative [facility] Nitrite Ql (U) Positive Abnormal Negative [facility] pH (U) 7.0 [pH] 5.0 - 7.0 [facility] Protein Ql (U) 100 mg/dL Abnormal Negative [facility] Specific gravity (U) [Rel density] 1.025 1.005 - 1.025 [facility] Urobilinogen Qn (U) 0.2 mg/dL <2.0, 0. 2, Normal, Negative, 1.0, 2.0, <1.0 [facility] Measure post void residualOr dered By: Rey Burkett on 05-01-2023 Interpretation and review of laboratory results Abnormal [facility] Measure Post Void Residual 103 [facility] Bacteria identified Aer cx N om (Unsp spec)Ordered By: Hellen Lozano on 10-26-2022 Interpretation and review of laboratory results Abnormal [facility] Urine Aerobic CultureOrdered By: Hellen Lozano on 10-26-2022 Bacteria identified Aer cx Nom (Unsp spec) >100,000 CFU/mL Escherichia coli Abnormal [facility] No Panel Informationon 10-24 Florian Whitt MD 10/24/2022 9:40 AM Cystoscopy Date/Time: 10/24/2022 9:39 AM Performed by: Florian Whitt MD Authorized by: Florian Whitt MD Verbal consent: obtained Written consent: obtained Consent given by: patient Relevant documents: Relevent documents present and verified. Medical history, medications, allergies and physical assessment reviewed/completed Test results: test results available and properly labeled Site: site marked by physician or proceduralist who is privileged and credentialed to perform procedure Relevant imaging studies available and labeled: Yes Patient identity confirmed: verified patient name and Time out: Immediately prior to procedure a time out was called to verify the correct patient, procedure, equipment, sales support consultant and site/side marked as required. Timeout performed at: 10/24/2022 9:39 AM Physician or proceduralist has discussed critical or nonroutine steps, procedure duration and anticipated blood loss: Yes All team members agree to proceed: Yes Preparation: Patient was prepped and draped in usual sterile fashion Local anesthesia used?: Yes Anesthesia: Local infiltration Local anesthetic: Lidocaine/prilocain e emulsionPatient sedated: no Patient tolerance: Patient tolerated the procedure well with no immediate complications Procedure details: The patient's Negrete catheter was removed. This was uncomfortable for him. It had some calcifications and sediment on the tip of the catheter and beginning to plug the movement. He was then prepped in usual sterile fashion. Lidocaine jelly was administered per urethra. Flexible scope was then passed to the urethra under direct vision. The penile urethra was unremarkable. The external sphincter was intact. His prostate was actually relatively patent and the scope was able to pass into the bladder. There was a fair amount of mucus and some sediment within the bladder but no obvious tumors or stones. The scope was removed after filling his bladder with a bit of saline. He tolerated the procedure reasonably well although it was uncomfortable for him. [facility] Radiation Therapy - unverifi ed data imported from [employer] 09-27-2022 Course ID C1 JUL 2022 [facility] Course Intent Curative [facility] Course Start Date [id number] [facility] Elapsed Days 30 [facility] First Treatment Date 08/28/2022 1:24 PM [facility] Fractions Treated to Date 22 [facility] Last Treatment Date 09/27/2022 10:56 AM [facility] Plan ID PROS_SV_LN [facility] Plan Name [id number] [facility] Plan Primary Reference Point PROST_PELV_LN [facility] Prescribed Dose per Fraction (cGy) 250 [facility] Prescription Dose (cGy) 7000 [facility] Reference Point cp PROST_PELV_LN [facility] Reference Point PROST_PELV_LN [facility] alth Session Dosage Given (cGy) 261 [facility] Session Dosage Given (cGy) 250 [facility] Total Dose to Date (cGy) 5749 [facility] Total Dose to Date (cGy) 5500 [facility] Total Fractions Prescribed 28 [facility] Radiation Therapy - unverifi ed data imported from [facility] 09-06-2022 Course ID C1 JUL 2022 [facility] Course Intent Curative [facility] Course Start Date [id number] [facility] Elapsed Days 9 [facility] First Treatment Date 08/28/2022 1:24 PM [facility] Fractions Treated to Date 8 [facility] Last Treatment Date 09/06/2022 11:23 AM [facility] Plan ID PROS_SV_LN [facility] Plan Name [id number] [facility] Plan Primary Reference Point PROST_PELV_LN [facility] Prescribed Dose per Fraction (cGy) 250 [facility] Prescription Dose (cGy) 7000 [facility] Reference Point cp PROST_PELV_LN [facility] Reference Point PROST_PELV_LN [facility] alth Session Dosage Given (cGy) 261 [facility] Session Dosage Given (cGy) 250 [facility] Total Dose to Date (cGy) 2091 [facility] Total Dose to Date (cGy) 2000 [facility] Total Fractions Prescribed 28 [facility] POC Urinalysis Dipstick, Aut oon 07-31-2022 Bilirubin Ql (U) Negative Negative [facility] Glucose Ql (U) Negative Normal, Negative mg/dL [facility] Hemoglobin Ql (U) Trace-intact Abnormal Negative [facility] ealt Interpretation and review of laboratory results Abnormal [facility] Ketones Ql (U) Negative Negative mg/dL [facility] Leukocyte esterase Test strip Ql (U) Trace Abnormal Negative [facility] Nitrite Ql (U) Positive Abnormal Negative [facility] pH (U) 6.0 [pH] 5.0 - 7.0 [facility] Protein Ql (U) 30 mg/dL Abnormal Negative [facility] Specific gravity (U) [Rel density] 1.030 Abnormal 1.005 - 1.025 [facility] Urobilinogen Qn (U) <2.0 <2.0, 0. 2, Normal, Negative, 1.0, 2.0, <1.0 mg/dL [facility] PET CT PROSTATE SKULL TO THI GHon 07-19-[address] PROSTATE SKULL TO THIGH EXAMINATION: F-18 [facility] PET-CT HISTORY: Prostate cancer, recently diagnosed 06/06/2022 COMPARISON: MRI prostate 07/19/2022. TECHNIQUE: Radiopharmaceutical : 9.9 mCi of 18F-Piflufolastat Intravenous injection site: Right antecubital fossa Field of view: Vertex of the skull to mid-thighs Intravenous contrast: Not administered Oral contrast: Not administered CT protocol: The low-dose, free-breathing, non-contrast CT performed as part of this study is designed for the purposes of attenuation correction and lesion localization, and it is neither sufficient, nor should it be substituted for diagnostic purposes. FINDINGS: Head/Neck: No suspicious radiotracer avid cervical nodes. Physiologic symmetric radiotracer uptake in the salivary glands. Chest: No definite suspicious radiotracer avid thoracic lymph nodes. Few scattered mediastinal nodes with mild to very mild radiotracer uptake, likely reactive nodes. No definite suspicious radiotracer avid lung nodules. Calcified left lung granulomas. Abdomen/Pelvis: Foci of intense radiotracer uptake in the prostate, region of intense radiotracer uptake in the lateral aspect of the right-sided prostate, SUV max 14.4. Radiotracer avid retroperitoneal and bilateral pelvic sidewall nodes. For example *Right precaval node with intense radiotracer uptake, 0.4 x 0.3 cm, SUV max 5.1. *Right iliac chain node with intense radiotracer uptake, 0.6 x 0.7 cm, SUV max 20.6. *Left pelvic sidewall node with intense radiotracer uptake, 1.3 x 1.9 cm, SUV max 31.6. *Right pelvic sidewall node with intense radiotracer uptake, 1.1 x 0.5 cm, SUV max 24.8. No abnormal radiotracer uptake in the liver and gallbladder. No abnormal radiotracer uptake in the spleen. Physiologic radiotracer uptake in the pancreas. Unremarkable bilateral adrenal glands. No suspicious radiotracer uptake in the bowel. Excreted radiotracer within the urinary collecting system and bladder. Musculoskeletal/Ext remities: Focus of intense radiotracer uptake in the right C3 facet without definite CT correlate, SUV max 11.8. No definite additional sites of suspicious osseous radiotracer uptake. Degenerative changes in the spine including osteophytes. IMPRESSION: 1. 18F-Piflufolastat avid lesions in the prostate, consistent with known malignancy. 2. 18F-Piflufolastat avid retroperitoneal and pelvic sidewall lymphadenopathy, suspicious for juliana metastatic disease/malignancy. 3. Focus of intense 18F-Piflufolastat uptake in the right C3 facet without definite CT correlate. Indeterminate, might represent uptake associated degenerative process although neoplastic focus is not entirely excluded. Workstation ID: [id number] Dictated by: DALILA BUTLER on SatJul 19, 2022 3:30:32 PM EST Transcribed by: DALILA BUTLER on SatJul 19, 2022 3:30:32 PM EST Finalized by: DALILA BUTLER on Cherie Jul 19, 2022 3:30:32 PM EST Normal [facility] Comment on above: Order Comment: Injur y/Trauma or Illness?:Illness/Other How long have you had these symptoms (acute/chronic)?:Chronic Reason for exam?:PSMA PET for prostate cancer, Adenocarcinoma of prostate new diagnosis Type of Exam?:Initial Additional signs and symptoms?:catherized CBC panel Auto (Bld)on 04-23 Erythrocyte distribution width (RBC) [Entitic vol] 14.8 % 11.6 - 14.8 % [facility] Hematocrit (Bld) [Volume fraction] 41.4 % 41 - 53 % [facility] Hemoglobin (Bld) [Mass/Vol] 13.2 g/dL Low 13.5 - 17.5 g/dL [facility] Interpretation and review of laboratory results Abnormal [facility] MCH (RBC) [Entitic mass] 30.7 pg 26 - 34 pg [facility] MCHC (RBC) [Mass/Vol] 31.9 g/dL 31 - 37 g/dL [facility] MCV (RBC) [Entitic vol] 96.3 fL 80 - 100 fL [facility] Nucleated RBC (Bld) [#/Vol] 0.00 10*3/uL [facility] Nucleated RBC/100 WBC (Bld) [Ratio] 0.0 % [facility] Platelet mean volume (Bld) [Entitic vol] 11.2 fL 9.4 - 12.4 fL [facility] Platelets (Bld) [#/Vol] 255 10*3/uL [facility] RBC (Bld) [#/Vol] 4.30 10*6/uL Low [facility] ealth WBC (Bld) [#/Vol] 13.54 10*3/uL [facility] Renal function 2000 panelon 04-23-2022 Albumin [Mass/Vol] 3.4 g/dL 3.2 - 5.2 g/dL [facility] Anion gap [Moles/Vol] 13 mmol/L 10 - 2 0 mmol/L [facility] Calcium [Mass/Vol] 9.1 mg/dL 8.4 - 10. 2 mg/dL [facility] Chloride [Moles/Vol] 106 mmol/L 98 - 10 8 mmol/L [facility] Creatinine [Mass/Vol] 1.98 mg/dL High 0.80 - 1.30 mg/dL [facility] GFR/1.73 sq M.predicted CKD-EPI (S/P/Bld) [Vol rate/Area] 37 Low - PINF [facility] Comment on above: Estimated GFR was ca lculated using the 2020 CKD-EPI creatinine equation. Glucose [Mass/Vol] 110 mg/dL High 65 - 99 mg/dL [facility] HCO3 [Moles/Vol] 30 mmol/L 21 - 32 mmol/L [facility] Interpretation and review of laboratory results Abnormal [facility] Phosphate [Mass/Vol] 3.3 mg/dL 2.3 - 3 .7 mg/dL [facility] Potassium [Moles/Vol] 3.7 mmol/L 3.5 - 5.1 mmol/L [facility] Sodium [Moles/Vol] 145 mmol/L 135 - 145 mmol/L [facility] Urea nitrogen [Mass/Vol] 21 mg/dL 8 - 25 mg/dL [facility] Urea nitrogen/Creatinine [Mass ratio] 10.6 mg/mg 10 - 20 [facility] has implemented the eGFR calculation approach that does not have a coefficient for race that conforms to the NKF-ASN Task Force Recommendations. [facility] Tissue ExamOrdered By: Merrick Ramírez on 04-23-2022 Case Report Surgical Pathology Report Case: [id number] Authorizing Provider: Florian Whitt MD Collected: 04/20/2022 04:26 PM Ordering Location: [facility] Received: 04/20/2022 05:01 PM Hospital Periop Pathologist: Dilcia Arvizu MD Specimens: A) - Prostate, Right [place] B) - Prostate, Right Mid C) - Prostate, Right Base D) - Prostate, Left [place] E) - Prostate, Left Mid F) - Prostate, Left Base [facility] Work Phone: Clinical information [id number] wMlxhbnNpXHNwbHRwZ3 GhumjiYMebXK2gZW8qr GxhdHRveWVuXGRlZmYw z6kau484tZQcq4ouDLM FgciliPw9yDyyY61cl8 L9BesiZ78frOXfSIV7D TIyNDBccGFwZXJoMTU4 IEFqeRZxU3uiQZAvNB2 hcmdyMTgwMFxtYXJndD Y3NFUbwDPhJ7SlPNHcK EerGYAgkuf7LfQcHs9t dGVyeTcyMFxwYXJkXHB sYWluXGZzMjAgRWxldm E1QUSrKSLLYlDwJbw0L jIwICAgQmVuaWduIHBy z4N5UCAvZiMgyPHxpyM fSPZhYQF8bIXrTUOwlM 3jrxguckR2WP55bN4aJ cElKgDsAtYbDQNaYf94 ICBccGFyfQ== [employer] Work Phone: Pathology report final diagnosis Narrative y3wrpROfEIGgoFYhRRC wMlxhbnNpXHNwbHRwZ3 XfisxfAMfuQB2wCN8le GxhdHRveWVuXGRlZmYw i2xfm156mBBir4nnOLZ RcefagRd4bUxjC63cq4 N1IjrnY2mbVRDtBBtmE JUgQFzsrTUwUVf6FUNi cGVydzEyMjQwXHBhcGV rkHF7DAMmOD7lgmzlEY tqZQwlWHKqdeA1PCYye LUsR8KnLTLhTN2gqaoa JAZ3FYctBKUnYWW4WrF hZXHrw5Uyejh4JrDbvN MgNFc0oSU5ZEnauOKhi lxmczIwXHBhclxwYXJk TVA8KcOwLYD0CeLgLWT oGcZtGhXUVvLYnn5vnE N3PVatklfhzFIpEZQos WxjEtgeaXZ8DkNaYOOq ICAgXHBhclxwYXJkXHR 9YpSpWTJ4EjZwITD4Tq YwXHBhclxwYXJkXGxpN eNrIScqnagpJXl7zFM4 NMw9lGR4WHk6dLK4EEc 1sBV9QXvlJjWpWLWfr3 HmzIMfUSUpiy9tBKTsx O4jkFChMAejBRZzb64e U3QowxDtXQswPZmiSUj POaXYlwDkQYVBfy97mI AzLCBpbnZvbHZpbmcgd UntGZ9nPWF5vfZmd5Mv cyAoNzAlKSwgNTAtNjA gBDMicZTtxx8rKI5nlD FyXHBhcmRcdHgzNjBcd HgzNjBcdHgzNjBcdHgz LfAccEupRbUbO7JvKOP oxifmGKIuLCN2JxAbGO P0FvLuYJU7XpXaJTW3O iCaXBB0RcWeJYQ6UjDa TWMgTSVdi9K7KXVxZNG yaWdodCBtaWQsIGJpb3 BzeTogICAgICAgIFxwY BQuaXMrKTb0yUR0VRm2 vXR7NBa9oMP4LAb4eVT 0DWz5mJV6FZv8rMI6MD d5hGA0HRnuOFKamPZiM VcapKugQGvvzK11CnRq dHgzNjBcdHgzNjBcdHg zNjBcdHgzNjBcdHgzNj BcdHgzNjBcdHgzNjBcd NzuWoSmE6DkQAVex2Z3 URHuGAXjIG3xQ5VeU8n jh81jZSGWsOWly79rFI Cot3DbFTPrZZ05GHNTY E8dS0DxSRErR9RnqCUy JNknlC49j6t4pJ3cDIR 2saGaLuK9x17iO90yPT MgKDkwJSkuXHBhclxwY NCbSLKyjB5ebDYgoIEh qjUzv9aeuoWyskQbEWE udGlmaWVkLlxwYXJccG EdKSy1gTV7CIz5zOV1R Pg9oNO5QEi8eKW4WDt6 tYN3VEq5vCD2ODk6mXN 3LNd1oOE1XYo5iFQ0LF xjZjBccGFyXHBhcmQgQ r2wSBWql3SzpGRzXPGy M5j4JGTnm0UiJOYgd7Y zeTogICAgICAgIFxwYX JccGFyXGxpNzIwXGxpb cfuJRmyKoNfIUFdp6Pk wCIbGWKjwq8eVDBsaI4 bpLVvSHlcBJWun83xI2 JflcZnHcc4KGpvYTmWC fPLsmQrXBOGgh08kVTt LCBpbnZvbHZpbmcgdHd nPC9uYDN7yfYgp6Pdoy AoODAtOTAlKSwgMzAlI CFkrSXnjh3oXW0zgYKc DTVnjkOAZGEaqdJ2atD tFDshbkDyqB7wPGilBP zqXU41uGLcKWKkHDCoo lxsaTBcbGluMFxjZjBc iNRxTQGfNUPcy2M4WRB gIKZpBQG6GJSnOKqvSZ Hdq4ZslSrdIUVtLYBpD FxwYXJccGFyXGxpNzIw XGxpbjcyMFxjZjEgUHJ eh2GynZFyMLPtue5uLK BiiX0vvNVoJIvsCFSac 44xU9VnjbPnGql0TQsp IFdITyBHcmFkZSBHcm9 1eRT4SHSjovMavGFreo iibGbcBV6zOKG7qiWjx 5NdknBrUHQyMX8roNJa MANwdtUQNYRcvhY5xtS lGRuqdtTstB8bIXrwCD zzVZ77fWUbDQYwWBFwe lxsaTBcbGluMFxjZjBc oXNuUQMjZHRch7E6SGF uCHZnIVD5DR3yXEeuSt ijvFW6SdShZVRuRPMwj GFyXHBhclxsaTcyMFxs jT53ImUoN6EeOAScx0Y 7ODAwDBKgKQ2gR0OrR8 bmf35bGTGFdMTdp23lH DSeg7IcMLSbQL22MIPJ KN7fN0IzQDCaR1NxvAD cLgplqX65m3t1oN6kWE I6hoMtTvJ6d74pQ41rK XMgKDYwLTcwJSksICAy WY5gMFDcfHI7nNOhfgM 0LlxjZjAgIFxwYXJccG FyIFBlcmluZXVyYWwga B68SFNvv82acXYxrMFr zhJuHoqtDB9tJGBiblr uUQIcHOY4PwQtVHFfhx ncETFfZJV8YtQkBOM0P wLpAUSqDUXvv4A1LZDe VQVmWFP8BYHst1EqJSR ak7RtzOdoOTCsUCKhZJ xfZCEhbSSfVIg6yHR4D Wt1yXX8MFm2pRI4UHma YXJccGFyZFxsaTcyMFx dpG63TvYvmNylDgZefA gzNjBcdHgzNjBcdHgzN uHrJ0TwFMUsz8J0UREb ZAEfND1aZ5YfA9opz44 eTJTMtJHff28dEZMwf5 XpOJPtOZ68HVWWSW9uJ 2ZlZAYkU5DzjGJgSWyj cT56z4g8wO6fLDD0ybO bNkS9f67gE11kGGTzQR IwJSkuXGNmMCAgXHBhc amoFLZsOQNzdW8mxDSl sEGzdhLyy8pmfoOwzoH pZGVudGlmaWVkLiBccG FyXHBhcmRcdHgzNjBcd HgzNjBcdHgzNjBcdHgz NjBcdHgzNjBccGFyXHB hcmRcYjBcZnMyMCBMU0 IvZGRoXGJcZnMyMiAgX HBhclxiMFxmczIwXHBh cn0= [employer] Work Phone: Pathology report gross observation Narrative i4qwbWFxPLKwuYCmBZE mXgx3cVNml9T4nsffNJ 8zaKngxHv7nJtwBMVwj pK1mRRjUVaaj9sbTZY3 e6xabhpfSBUcLNxaUl5 udHRibHtcZjAgQXJpYW c1oI81ACJvlX0bdWCqH DtccmVkMFxncmVlbjBc Ssu1ZHZ9yDiuPASptei bCrF5WMsfEMRrpgcjNJ e5NWdtPJVhwLB2XFYff VPdH0MjXXYtSS6doan3 MTR2THusNZQxZeN0FOR caGVhZGVyeTcyMFxmb2 65WEI0KePkAEVyx0Q3l vYmJeAjMMAulYU2isH1 SSDwXS7bcsylo2cmYFv bOTvlODAiweL0cnQ8YX LysWJoI2AyjZ0pFOOsK K1udnjak7jdDGN8DOje YXJkXHBsYWluXGZzMjB uH3TkDSTmYUDnvNExFH EuICBSZWNlaXZlZCBpb dSpk4FyAXhdvnAgQGSz bGVkICJccHJvdGVjdFx eCuW6AMPuEGcvb8ogWF UnDPsjt0WxWBhTJYOIA F5WRZ2luIK7ZHdTU9JR Y8wSeFV0VBOxgND5ZDR LDO4McFK6XICEXP8yKV omXoo1JKn3cCcxInpgj xMedZWmRbJytZ7MILq9 DGagBAJAk00gqAUlMNr lRwtvbIF2QXbnTvviuU 5zdCBIWVBFUkxJTksgb bBrSI2EHR6KMW8CsQD5 ZSAgxBL3DFWAWS5SeAQ 2XPFXSZ2vGJalRdg0SW j7tOxuJuvtclAfkKHzI mZnhA9fdFqphJ9vAySv MFxjZjEgIiBhbmQgZGV zaWduYXRlZCAicmlnaH XmJQXqhKHbPZVoTYO7y bMpa9KkNXNwWBObVF5r tS2wEZTjj03sSFNzzFQ 0byAyIGNtLiAgQWxsID KcJP3eEFSlulmnXQShD 6TnR8wpFZ3qHt1tOWOu S5FieyRxCXklFCRpdc4 hbGluIGxhYmVsZWQgIl wobx46XLI4GHIpSJesL tayrEY7RMwhZvmyyC1f dCBIWVBFUkxJTksgbmF uRH7MCL7TDlOFMG81Gd wwTIZ5FvvJDqdWLiw7R HxFUFQsLjIsLCwyfHww rJb6h7nqrRSje5z5VXy pMXU2tC1siIozjHyjMW AmfdFsPWXCe8jfkUUwQ XuePsbniLJxdjJ4CDyD ZLDSQLkAXsCiLN0lVGr JScyLBsL0RnabYHH1Xl tFRakVEgm4HEcUIFNlQ zCcCKkhpQzjoTv5w4fe kZXal1o5EQrkINR7qOc wbGFpblxmczIwXGNmMS PlDIMiEFHjGJUpP16jl GVkICJyaWdodCBtaWQi JEItQPF1d05pR87cJSv oJAkmucUzD4ixCtQjhz 8tBMYkTHL4ayAqQotaS 77fNEAKjCuuFt0gKtGq WHVzkurrr9pdFGL5qOW bvipxYWWjU6XdA4kwTF 4gXGNmMCBDXGNmMSAuI CBSZWNlaXZlZCBpbiBm r9HjMZwxiiFjXNXilAU kICJccHJvdGVjdFxjZj L6YKBwRKfjk5tyWJPaW Awdg3VcGVmJYUATDO8R JW0ktBK2JTbDC0BGO7a UkHZ9XYLvdFV0TBUEGO 4NwHD3OMXPVI4lBFiuH ah3NEv2iMwtAtvpveVo lBBrHzKmmJ0DXGr9CZh yZMOTn06juJArKLqnEe ypxFE4WWtiIpmokE0bi CBIWVBFUkxJTksgbmFt LJ2EVK6DTR6IaBB0SCW qtXZ5WEFCRG0YlBB5NE ONTC0zCUodBac0VRr5k XtcZmxkcnNsdCBcJzFj sN4gcRmsaK4bEiUqIWd jZjEgIiBhbmQgZGVzaW duYXRlZCAicmlnaHQgY mFzZSIgYXJlIHRocmVl IGNvcmUocyksIHJhbmd pbmcgZnJvbSAxIGNtIH NrDDNwPiZffM7sUUAyf CAzLzIuICBccGFyXHBh jaZDjKRrgD5lgzPuH3W yCVCfD9QnQR3mYLQqK5 AzkkEsRFcnXSTrbm2sw GluIGxhYmVsZWQgIlxw bm03UFA9UTUlGSdkFwh ruCQ5FZhnIpzewW8wbH BIWVBFUkxJTksgbmFtZ O2OAB6ITqECXK96Rkmb CQN4IGfNLxkJVsr6TZk FUFQsLjIsLCwyfHwwfH o1s8yxfLOca6k4UShaJ CC6uL6krYrwrTecVQUy kcFiENLFm4linSJyBFh qQvbazAApgwJ1UFjGIB LMRMnAMaXcEY7cFWlIB mnTCoO5KuxyIWZ7XXxA ExuQKbc5EMlPOEYlYpK yVEokxCianTu5l4ftvR Gud5m4JJzqLFD1hAbpm GFpblxmczIwXGNmMSAi DHKrQQPhCBYhZ65lgCK dKKVyGUU8EHHgEEdiQN QzKLO3e35bU23aQMbbP BdkvkJvB5hxXmIudv7w EXWuO74hoJ5jUI39FEP jYmHwAGodUAVeHG5gDF xwYXJccGFyIFNwZWNpb WVuIFxjZjAgRVxjZjEg HvCzOjFpJMj6ZNDgaP0 tRz2avMVrmA4bzDCeKL wqPQIkGQYau7PeJ8WoD 8Wyg3ytjIBfTHcbBzfg bFTscxE3VAsCHTJXTJc XVaOhEY0hRNaIIkwKLK wFDrpyMPOoEUm4lFFAQ NiEW3dnsGHCOIcrVydh WCC3nJO7xI14JFVcQSL xwGDcETwqK604ICA3p2 ArmIehDS4eDNccPHO5L WPcIWedr4paEVGxJBuw r0FxKSvOLKROSY1ZTT0 koIS4DKtDC8DNGFrgQE HlAZz6mYRLWJxRI5qsn GQVYLlyQhgkXBS2jMH5 qE99FYCiUTCdjPPsUCo cG111KQYoYPjlTENmFd EfM7FqRWCeON4mPUSoy 6ikxyX9WXKwNtraYpJy bWlkIiBhcmUgdHdvIGN vcmUocyksIHJhbmdpbm fvNrUvdELyHjRrsS7vA A65COFkAmNiFAkqEDBv PT8eQOpiTUCsi5hyO1K scGFyXGNmMFxwYXIgU3 OdP8flKD1iJm5kAVndI bKpTySnNEj7JNDmmA0c Ek8raWDupP1snYWdXSh bYFTyYBUzi8JxW2CnD9 Zuu7tblZGwGZdcVlumu QSccsF8VTbRHHBUAZcJ DrWwWK1dWZgDKniSEDd ZOygxTTPmIRz1fRIPAX eSY9iskZQFHQprEadeL EO2fHT1yP52CBYwVYCm zQQnFQwhY154JTK3s2W xdJrkJU1fZCvdGFU7LE GkWLpam9eoNQTnTPtug 2EjEKlTRQUSRD4GEX4t gDC1TOxCV8YJQXhuTTN lPTb2oMSDZPlZP2wldQ IAAWjeYntvNFJ6dKQ3p O33NIKoVWXqfZMzSVvu X760BWExSQoxCZJlTjB qE4LdPDIrCW0qIZVwh4 wpudT8JCUlLihwIaOuC cIgVZXnAYHuPUV4diMy d8XyBXNoUDLwSF6vyX4 xSMVaz97bOUA3yaJyRw ViW75aHSHEkFebOn9eV wRvR1AdDUZwdLGyIEOs qeqqChHbMRIJB4BRK3F hYlxwYXJccGFyXHBhcm Ljww06eCBxtLmySQGpQ 3Wyr3ZnREmdmSiiHJTo s19fiUBuCs0itFEzSST 0OiBSaXZlcnNpZGUgTW F9uG3iwVB1HQdbu6Ukg OPjHP1hPvRxXWSXtRPs uJHfK7ccKhp5XFUoYo0 mVBTZy4j8vNN4irypU8 ggNDMyMTRccGFyfQ== [facility] Work Phone: Pathology report microscopic observation Narrative Other stain r9bqkVVnNQOidIIxTaS wJJDaFMByu2elZVHroC FuZzEwMzNcZnRuYmpcd YIhSOCdKjRtj0ejq771 xJHpr6zdKYEyAzK5iYT dHPFwwDYxL796GRGkWQ vby4zim0KkSYXvbESyg 8Z3JRNChosioDa1qVxy C29te4P6AisxV8pnRJZ dDSZqJ5LsHA7pLRViCu p2TRD9HYT5VRKxNFIwK 4ZvIJ0wMWCghLVpMYq0 i0scxDyhCQAeKGN9v5b eHFgobbTzNL3ihe0zpB y2q4ukpxOcMPWzJUCvp YLWYTIpY5VllZagPb4u yLt5aHfkKqwtWGL9Hui 4AF5dkw85jzn1hHkaQK WwsnexEzA9PPtiMHKrs eysYMy1OMqrQROyeXN3 KMJyfLDiY5AcQZCzUT9 awbu3AYO5VHzkGTPoBp A3MLIdnYUiECKfyUycB Cabd152MUX5FyGrVF3v Z2Hrf0F7pA5drZJnNZY gqLQtRtUyRRKolj3heV TiOGeyy6FzOUW2nsL2s UBgoOMiPNRzFJ94Rfya j0DxYuuaPJL0JLIslrM op5Xol8ywUkBvmuIuS8 zyA0QfMJCgTOGfZVXfA sXfejCys4Wwf2JprWPl xVk3l4irVYZmOIDxlCz mf0ahTZU9EGWhB5S6bG Bxn8ksYSnjYPTslBW6u fY4UAFssBWeC2NtiL2h ZQQxSW8bmny2e2dhULX 1SZhmURCoNcO7kpL4JE BcaGVhZGVyeTcyMFxmb 218NYO8IrZhJTWwg4Uq I7NcyXhuS75ilYriV45 zYBVsdPyouW0ynAanbA 5cZjBcZnMyNFxxbFxwb GFpblxmMVxmczIwXGxh lycvPZPgAMmoP1seLzD wFIHmsBcuRVygi8QqFG FvPETiIgOaJHtaqv4pD 29waWMgZXhhbWluYXRp p59aiESfcFWkGb4nbQE kLlxwYXJ9 [facility] Work Phone: [facility] Work Phone: Basic metabolic 2000 panelon 04-22-2022 Anion gap [Moles/Vol] 14 mmol/L 10 - 2 0 mmol/L [facility] Calcium [Mass/Vol] 9.0 mg/dL 8.4 - 10. 2 mg/dL [facility] Chloride [Moles/Vol] 107 mmol/L 98 - 10 8 mmol/L [facility] Creatinine [Mass/Vol] 2.13 mg/dL High 0.80 - 1.30 mg/dL [facility] GFR/1.73 sq M.predicted CKD-EPI (S/P/Bld) [Vol rate/Area] 34 Low - PINF [facility] Comment on above: Estimated GFR was ca lculated using the 2020 CKD-EPI creatinine equation. Glucose [Mass/Vol] 153 mg/dL High 65 - 99 mg/dL [facility] HCO3 [Moles/Vol] 29 mmol/L 21 - 32 mmol/L [facility] Interpretation and review of laboratory results Abnormal [facility] Potassium [Moles/Vol] 3.3 mmol/L Low 3.5 - 5.1 mmol/L [facility] Sodium [Moles/Vol] 147 mmol/L High 135 - 145 mmol/L [facility] Urea nitrogen [Mass/Vol] 21 mg/dL 8 - 25 mg/dL [facility] Urea nitrogen/Creatinine [Mass ratio] 9.9 mg/mg Low 10 - 20 [facility] has implemented the eGFR calculation approach that does not have a coefficient for race that conforms to the NKF-ASN Task Force Recommendations. [facility] CBC panel Auto (Bld)on 04-22 Erythrocyte distribution width (RBC) [Entitic vol] 14.9 % High 11.6 - 14.8 % [facility] Hematocrit (Bld) [Volume fraction] 40.8 % Low 41 - 53 % [facility] Hemoglobin (Bld) [Mass/Vol] 13.5 g/dL 13.5 - 17.5 g/dL [facility] Interpretation and review of laboratory results Abnormal [facility] MCH (RBC) [Entitic mass] 31.4 pg 26 - 34 pg [facility] MCHC (RBC) [Mass/Vol] 33.1 g/dL 31 - 37 g/dL O [facility] MCV (RBC) [Entitic vol] 94.9 fL 80 - 100 fL [facility] Nucleated RBC (Bld) [#/Vol] 0.00 10*3/uL [facility] Nucleated RBC/100 WBC (Bld) [Ratio] 0.0 % [facility] Platelet mean volume (Bld) [Entitic vol] 11.1 fL 9.4 - 12.4 fL [facility] Platelets (Bld) [#/Vol] 248 10*3/uL [facility] RBC (Bld) [#/Vol] 4.30 10*6/uL Low [facility] ealt WBC (Bld) [#/Vol] 13.00 10*3/uL [facility] ECG 12 Leadon 04-22-2022 Atrial Rate 77 BPM [facility] P [place] 33 degrees [facility] P-R Interval 148 ms [facility] Q-T Interval 436 ms [facility] QRS Duration 82 ms [facility] QTC Calculation (Bezet) 493 ms [facility] R [place] 32 degrees [facility] T [place] 52 degrees [facility] Ventricular Rate 77 BPM [facility] Sinus rhythm with Premature atrial complexes Prolonged QT Abnormal ECG Confirmed by PRICE SCHULTZ MD ([id number]) on 04/22/2022 9:12:27 AM [facility] ECHOCARDIOGRAM COMPLETEon ECHOCARDIOGRAM COMPLETE Patient Info Name: GINGER WELDON Age: 61 years : 1960 Gender: Male Ht: 178 cm Wt: 101 kg BSA: 2.26 m2 HR: 79 bpm BP: 167 / 78 mmHg Technical Quality: Fair Exam Date: 04/22/2022 8:18 AM Patient Status: Inpatient Program Paraprofessional: Marybel Francois RCS Exam Type: ECHOCARDIOGRAM COMPLETE Study Info Indications R06.00 - Dyspnea, unspecified Attending Physician: FLORIAN WHITT Referring Physician: [id number], MARI; [id number] BMI: 31.85 kg/m2 Summary 1. Left ventricular systolic function is normal with an ejection fraction by Biplane Method of Discs of 60 %. 2. No regional wall motion abnormalities were detected. 3. There is no comparison study available. History/Risk Factors Tobacco Use: Current - Every Day Left Ventricle Left ventricular chamber dimension is normal. Left ventricular systolic function is normal with an ejection fraction by Biplane Method of Discs of 60 %. Normal left ventricular mass. Left ventricular segmental wall motion is normal. There is grade 1 diastolic dysfunction, consistent with impaired relaxation and low or normal left atrial pressures. Right Ventricle Right ventricular chamber dimension is normal. Right ventricular systolic function is normal. Left Atria Left atrial chamber is normal with a left atrial volume index of 19 ml/m2 by BP MOD. Right Atria Right atrial chamber dimension is normal. Aortic Valve The aortic valve is trileaflet. There is no aortic valve sclerosis. There is no aortic valve stenosis. There is no aortic valve regurgitation. Pulmonic Valve The pulmonic valve is normal. There is no pulmonic valve stenosis. There is trace pulmonic regurgitation. Mitral Valve The mitral valve has normal leaflets. There is no mitral valve stenosis. There is trace mitral valve regurgitation. Tricuspid Valve The tricuspid valve leaflets are normal. There is no significant tricuspid valve stenosis. There is trace tricuspid valve regurgitation. RV systolic pressure could not be accurately estimated. Pericardium/Pleural There is a trivial (possibly physiologic) pericardial effusion. This finding can also be seen in patients receiving aggressive intravascular fluid administration. Inferior Vena Cava Normal inferior vena cava with >50% collapse upon inspiration consistent with normal right atrial pressure. Aorta The aortic measurements are indexed to age and body surface area. The aortic root is normal measuring 3.5 cm with an index of 1.5 cm/m2. The proximal ascending aorta is normal measuring 3.4 cm with an index of 1.5 cm/m2. Left Ventricular Outflow Tract Name Value Normal LVOT 2D LVOT Diameter 2.3 cm LVOT Doppler LVOT Peak Velocity 1.1 m/s LVOT Mean Gradient 3 mmHg LVOT VTI 21 cm LVOT VTI/AV VTI Ratio 0.7 LVOT Stroke Volume 87 ml LVOT Stroke Index 38.41 ml/m2 Pulmonic Valve Name Value Normal RVOT Doppler RVOT Peak Velocity 94 cm/s RVOT Mean Gradient 2 mmHg PV Doppler PV Peak Velocity 1.19 m/s PV Mean Gradient 3 mmHg Mitral Valve Name Value Normal MV Doppler MV PHT 67 ms MV Area (PHT) 3.3 cm2 4.0-5.0 MV Diastolic Function MV E Peak Velocity 0.84 m/s MV A Peak Velocity 0.99 m/s MV E/A 0.9 MV Decel Time 232 ms MV Annular TDI MV Septal e' Velocity 9.8 cm/s >=8.0 MV E/e' (Septal) 8.6 <=8.0 MV Lateral e' Velocity 8.5 cm/s >=10.0 MV E/e' (Lateral) 9.9 <=8.0 MV e' Average 9.15 cm/s MV E/e' (Average) 9.2 Tricuspid Valve Name Value Normal Estimated PAP/RSVP RA Pressure 3 mmHg <=5 Aorta Name Value Normal Ascending Aorta -------- (more content not included)... Normal [facility] EKGon 04-22-2022 [facility] Echocardiogram completeOrder ed By: Nick Valentine on 04-22-2022 Aortic valve area 2.85498 cm [facility] Work Phone: AV mean gradient 5 mmHg [facility] Work Phone: AV peak gradient 8.61150 mmHg [facility] Work Phone: EF [phone] % [facility] Work Phone: [facility] Work Phone: Echocardiogram completeon Patient Info Name: GINGER WELDON Age: 61 years : 1960 Gender: Male Ht: 178 cm Wt: 101 kg BSA: 2.26 m2 HR: 79 bpm BP: 167 / 78 mmHg Technical Quality: Fair Exam Date: 04/22/2022 8:18 AM Patient Status: Inpatient Program Paraprofessional: Marybel Francois RCS Exam Type: ECHOCARDIOGRAM COMPLETE Study Info Indications R06.00 - Dyspnea, unspecified Attending Physician: FLORIAN WHITT Referring Physician: [id number], MARI; [id number] BMI: 31.85 kg/m2 Summary 1. Left ventricular systolic function is normal with an ejection fraction by Biplane Method of Discs of 60 %. 2. No regional wall motion abnormalities were detected. 3. There is no comparison study available. History/Risk Factors Tobacco Use: Current - Every Day Left Ventricle Left ventricular chamber dimension is normal. Left ventricular systolic function is normal with an ejection fraction by Biplane Method of Discs of 60 %. Normal left ventricular mass. Left ventricular segmental wall motion is normal. There is grade 1 diastolic dysfunction, consistent with impaired relaxation and low or normal left atrial pressures. Right Ventricle Right ventricular chamber dimension is normal. Right ventricular systolic function is normal. Left Atria Left atrial chamber is normal with a left atrial volume index of 19 ml/m2 by BP MOD. Right Atria Right atrial chamber dimension is normal. Aortic Valve The aortic valve is trileaflet. There is no aortic valve sclerosis. There is no aortic valve stenosis. There is no aortic valve regurgitation. Pulmonic Valve The pulmonic valve is normal. There is no pulmonic valve stenosis. There is trace pulmonic regurgitation. Mitral Valve The mitral valve has normal leaflets. There is no mitral valve stenosis. There is trace mitral valve regurgitation. Tricuspid Valve The tricuspid valve leaflets are normal. There is no significant tricuspid valve stenosis. There is trace tricuspid valve regurgitation. RV systolic pressure could not be accurately estimated. Pericardium/Pleural There is a trivial (possibly physiologic) pericardial effusion. This finding can also be seen in patients receiving aggressive intravascular fluid administration. Inferior Vena Cava Normal inferior vena cava with >50% collapse upon inspiration consistent with normal right atrial pressure. Aorta The aortic measurements are indexed to age and body surface area. The aortic root is normal measuring 3.5 cm with an index of 1.5 cm/m2. The proximal ascending aorta is normal measuring 3.4 cm with an index of 1.5 cm/m2. Left Ventricular Outflow Tract Name Value Normal LVOT 2D LVOT Diameter 2.3 cm LVOT Doppler LVOT Peak Velocity 1.1 m/s LVOT Mean Gradient 3 mmHg LVOT VTI 21 cm LVOT VTI/AV VTI Ratio 0.7 LVOT Stroke Volume 87 ml LVOT Stroke Index 38.41 ml/m2 Pulmonic Valve Name Value Normal RVOT Doppler RVOT Peak Velocity 94 cm/s RVOT Mean Gradient 2 mmHg PV Doppler PV Peak Velocity 1.19 m/s PV Mean Gradient 3 mmHg Mitral Valve Name Value Normal MV Doppler MV PHT 67 ms MV Area (PHT) 3.3 cm2 4.0-5.0 MV Diastolic Function MV E Peak Velocity 0.84 m/s MV A Peak Velocity 0.99 m/s MV E/A 0.9 MV Decel Time (more content not included)... FUJI SYNAPSE CV Nick Valentine MD - 04/22/2022 Patient Info Name: GINGER WELDON Age: 61 years : 1960 Gender: Male Ht: 178 cm Wt: 101 kg BSA: 2.26 m2 HR: 79 bpm BP: 167 / 78 mmHg Technical Quality: Fair Exam Date: 04/22/2022 8:18 AM Patient Status: Inpatient Program Paraprofessional: Marybel Francois RCS Exam Type: ECHOCARDIOGRAM COMPLETE Study Info Indications R06.00 - Dyspnea, unspecified Attending Physician: FLORIAN WHITT Referring Physician: [id number], MARI; [id number] BMI: 31.85 kg/m2 Summary 1. Left ventricular systolic function is normal with an ejection fraction by Biplane Method of Discs of 60 %. 2. No regional wall motion abnormalities were detected. 3. There is no comparison study available. History/Risk Factors Tobacco Use: Current - Every Day Left Ventricle Left ventricular chamber dimension is normal. Left ventricular systolic function is normal with an ejection fraction by Biplane Method of Discs of 60 %. Normal left ventricular mass. Left ventricular segmental wall motion is normal. There is grade 1 diastolic dysfunction, consistent with impaired relaxation and low or normal left atrial pressures. Right Ventricle Right ventricular chamber dimension is normal. Right ventricular systolic function is normal. Left Atria Left atrial chamber is normal with a left atrial volume index of 19 ml/m2 by BP MOD. Right Atria Right atrial chamber dimension is normal. Aortic Valve The aortic valve is trileaflet. There is no aortic valve sclerosis. There is no aortic valve stenosis. There is no aortic valve regurgitation. Pulmonic Valve The pulmonic valve is normal. There is no pulmonic valve stenosis. There is trace pulmonic regurgitation. Mitral Valve The mitral valve has normal leaflets. There is no mitral valve stenosis. There is trace mitral valve regurgitation. Tricuspid Valve The tricuspid valve leaflets are normal. There is no significant tricuspid valve stenosis. There is trace tricuspid valve regurgitation. RV systolic pressure could not be accurately estimated. Pericardium/Pleural There is a trivial (possibly physiologic) pericardial effusion. This finding can also be seen in patients receiving aggressive intravascular fluid administration. Inferior Vena Cava Normal inferior vena cava with >50% collapse upon inspiration consistent with normal right atrial pressure. Aorta The aortic measurements are indexed to age and body surface area. The aortic root is normal measuring 3.5 cm with an index of 1.5 cm/m2. The proximal ascending aorta is normal measuring 3.4 cm with an index of 1.5 cm/m2. Left Ventricular Outflow Tract Name Value Normal LVOT 2D LVOT Diameter 2.3 cm LVOT Doppler LVOT Peak Velocity 1.1 m/s LVOT Mean Gradient 3 mmHg LVOT VTI 21 cm LVOT VTI/AV VTI Ratio 0.7 LVOT Stroke Volume 87 ml LVOT Stroke Index 38.41 ml/m2 Pulmonic Valve Name Value Normal RVOT Doppler RVOT Peak Velocity 94 cm/s RVOT Mean Gradient 2 mmHg PV Doppler PV Peak Velocity 1.19 m/s PV Mean Gradient 3 mmHg Mitral Valve Name Value Normal MV Doppler MV PHT 67 ms MV Area (PHT) 3.3 cm2 4.0-5.0 MV Diastolic Function MV E Peak Velocity 0.84 m/s MV A Peak Velocity 0.99 m/s MV E/A 0.9 MV Decel Time 232 ms MV Annular TDI MV Septal e' Velocity 9.8 cm/s >=8.0 MV E/e' (Septal) 8.6 <=8.0 MV Lateral e' Velocity 8.5 cm/s >=10.0 MV E/e' (Lateral) 9.9 <=8.0 MV e' Average 9.15 cm/s MV E/e' (Average) 9.2 Tricuspid Valve Name Value Normal Estimated PAP/RSVP RA Pressure 3 mmHg <=5 Aorta (more content not included)... [facility] Radiology Study observation (narrative) [facility] Magnesium Levelon 04-22-2022 Magnesium [Mass/Vol] 1.8 mg/dL 1.6 - 2 .4 mg/dL [facility] Magnesium [Mass/Vol]on 04-22 Interpretation and review of laboratory results Normal [facility] Renal function 2000 panelon 04-22-2022 Albumin [Mass/Vol] 3.1 g/dL Low 3.2 - 5.2 g/dL [facility] [facility] Anion gap [Moles/Vol] 16 mmol/L 10 - 2 0 mmol/L [facility] Calcium [Mass/Vol] 8.8 mg/dL 8.4 - 10. 2 mg/dL [facility] Chloride [Moles/Vol] 107 mmol/L 98 - 10 8 mmol/L [facility] Creatinine [Mass/Vol] 2.54 mg/dL High 0.80 - 1.30 mg/dL [facility] GFR/1.73 sq M.predicted CKD-EPI (S/P/Bld) [Vol rate/Area] 28 Low - PINF [facility] Comment on above: Estimated GFR was ca lculated using the 2020 CKD-EPI creatinine equation. Glucose [Mass/Vol] 116 mg/dL High 65 - 99 mg/dL [facility] HCO3 [Moles/Vol] 26 mmol/L 21 - 32 mmol/L [facility] Interpretation and review of laboratory results Abnormal [facility] Phosphate [Mass/Vol] 3.8 mg/dL High 2.3 - 3 .7 mg/dL [facility] Potassium [Moles/Vol] 3.0 mmol/L Low 3.5 - 5.1 mmol/L [facility] Sodium [Moles/Vol] 146 mmol/L High 135 - 145 mmol/L [facility] Urea nitrogen [Mass/Vol] 23 mg/dL 8 - 25 mg/dL [facility] Urea nitrogen/Creatinine [Mass ratio] 9.1 mg/mg Low 10 - 20 [facility] has implemented the eGFR calculation approach that does not have a coefficient for race that conforms to the NKF-ASN Task Force Recommendations. [facility] US Renal Onlyon 04-22-2022 1. Lspd-kp-kaxdcyop hydronephrosis of the right as well as the left kidney. No apparent cause for this is identified. [employer] Workstation ID: [id number] Pidefarma EXAMINATION: RENAL ULTRASOUND: 04/21/2022. HISTORY: Dx: R97.20 (Elevated PSA) Injury/Trauma or Illness?:Illness/Ot her How long have you had these symptoms (acute/chronic)?:Un known BESSIE COMPARISON FILMS: None relevant. FINDINGS: Static images from real-time examination using grayscale, color Doppler sonography are provided. The right kidney measures 12.6 x 5.3 x 4.5 cm. There is moderate hydronephrosis of the right kidney. There is no pericholecystic fluid, nephrolithiasis or obvious mass. The left kidney measures 12.4 x 5.3 x 4.8 cm with moderate hydronephrosis. There is no mass, nephrolithiasis, perinephric fluid collections. Pidefarma Breezy Sosa MD - 04/22/2022 EXAMINATION: RENAL ULTRASOUND: 04/21/2022. HISTORY: Dx: R97.20 (Elevated PSA) Injury/Trauma or Illness?:Illness/Ot her How long have you had these symptoms (acute/chronic)?:Un known BESSIE COMPARISON FILMS: None relevant. FINDINGS: Static images from real-time examination using grayscale, color Doppler sonography are provided. The right kidney measures 12.6 x 5.3 x 4.5 cm. There is moderate hydronephrosis of the right kidney. There is no pericholecystic fluid, nephrolithiasis or obvious mass. The left kidney measures 12.4 x 5.3 x 4.8 cm with moderate hydronephrosis. There is no mass, nephrolithiasis, perinephric fluid collections. IMPRESSION: 1. Njhd-zz-zbdubfod hydronephrosis of the right as well as the left kidney. No apparent cause for this is identified. [employer] Workstation ID: [id number] [facility] Renal OnlyOrdered By: Giuseppe Sosa on 04-22-2022 [facility] Work Phone: COVID-19/INFLUENZA A,B MOLEC ULARon 04-21-2022 SARS-CoV-2 (COVID-19) Ab IA Ql SARS-COV-2 (AMARA): Not Detected INFLUENZA A (AMARA): Not Detected INFLUENZA B (AMARA): Not Detected Normal Not Detected [facility] Comment on above: Order Comment: This test was performed under the FDA's Emergency Use Authorization (EUA). Testing was performed using the Hatite Aron SARS-CoV-2 RT-PCR AND Influenza A/B Nucleic Acid Test on the Aron Amara System. This test has not been approved for use in asymptomatic patients and its performance in this patient population has not been evaluated. Negative results do not rule out the presence of SARS-CoV-2, influenza A, and/or influenza B. Fact sheets for the EUA can be found at the following links: For Healthcare Providers: https://www.fda.gov/media/308502/download For Patients: https://www.fda.gov/media/268877/download Performed By: #### L [id number] #### [facility] [address] [address] Juan Talavera M.D. [id number] Comprehensive metabolic 2000 panelon 04-21-2022 Albumin [Mass/Vol] 3.9 g/dL 3.2 - 5.2 g/dL [facility] ALP [Catalytic activity/Vol] 111 U/L 40 - 150 U/L [facility] ALT [Catalytic activity/Vol] 9 U/L 0 - 40 U/L [facility] Anion gap [Moles/Vol] 18 mmol/L 10 - 2 0 mmol/L [facility] AST [Catalytic activity/Vol] 10 U/L 0 - 45 U/L [facility] Bilirubin [Mass/Vol] 0.7 mg/dL 0 - 1.3 mg/dL [facility] Calcium [Mass/Vol] 9.7 mg/dL 8.4 - 10. 2 mg/dL [facility] Chloride [Moles/Vol] 104 mmol/L 98 - 10 8 mmol/L [facility] Creatinine [Mass/Vol] 3.93 mg/dL High 0.80 - 1.30 mg/dL [facility] GFR/1.73 sq M.predicted CKD-EPI (S/P/Bld) [Vol rate/Area] 16 Low - PINF [facility] Comment on above: Estimated GFR was ca lculated using the 2020 CKD-EPI creatinine equation. Glucose [Mass/Vol] 123 mg/dL High 65 - 99 mg/dL [facility] HCO3 [Moles/Vol] 31 mmol/L 21 - 32 mmol/L [facility] Interpretation and review of laboratory results Abnormal [facility] Potassium [Moles/Vol] 4.4 mmol/L 3.5 - 5.1 mmol/L [facility] Protein [Mass/Vol] 7.1 g/dL 6 - 8 g/dL [facility] alth Sodium [Moles/Vol] 149 mmol/L High 135 - 145 mmol/L [facility] Urea nitrogen [Mass/Vol] 28 mg/dL High 8 - 25 mg/dL [facility] Urea nitrogen/Creatinine [Mass ratio] 7.1 mg/mg Low 10 - 20 [facility] has implemented the eGFR calculation approach that does not have a coefficient for race that conforms to the NKF-ASN Task Force Recommendations. [facility] Creatinine (U) [Mass/Vol]on 04-21-2022 No established reference range. [facility] Creatinine, Urine, Randomon 04-21-2022 Creatinine (U) [Mass/Vol] 29.8 mg/dL [facility] EKGon 04-21-2022 [facility] Glucose (Bld) [Mass/Vol]on 1 06-21-2021 Glucose [Mass/Vol] 141 mg/dL High 65 - 99 [facility] Interpretation and review of laboratory results Abnormal [facility] Glucose [Mass/Vol] 110 mg/dL High 65 - 99 mg/dL [facility] Interpretation and review of laboratory results Abnormal [facility] HbA1c (Bld) [Mass fraction]o n 04-21-2022 Average glucose Estimated from glycated hemoglobin (Bld) [Mass/Vol] 128 mg/dL High 74 - 114 mg/dL [facility] Interpretation and review of laboratory results Abnormal [facility] Normal: 4.2% - 5.6% Increased risk for diabetes: 5.7% - 6.4% Diabetes: >= 6.5% Pediatrics: No established reference range Estimated average glucose: 74-114 mg/dL [facility] Hemoglobin A1con 04-21-2022 HbA1c (Bld) [Mass fraction] 6.1 % High 4.2 - 5.6 % [facility] Influenza virus A and B RNA and SARS-CoV-2 (COVID-19) N gene panel TABITHA+probe (Resp)Ordered By: Isabella Knox on 04-21-2022 FLUAV RNA TABITHA+probe Ql (Unsp spec) Not detected Not Detected [facility] FLUBV RNA TABITHA+probe Ql (Unsp spec) Not detected Not Detected [facility] Interpretation and review of laboratory results Normal [facility] SARS-CoV-2 (COVID-19) RNA TABITHA+probe Ql (Resp) Not detected Not Detected [facility] This test was performed under the FDA's Emergency Use Authorization (EUA). Testing was performed using the Hattie Aron SARS-CoV-2 RT-PCR & Influenza A/B Nucleic Acid Test on the Aron Amara System. This test has not been approved for use in asymptomatic patients and its performance in this patient population has not been evaluated. Negative results do not rule out the presence of SARS-CoV-2, influenza A, and/or influenza B. Fact sheets for the EUA can be found at the following links: For Healthcare Providers: https://www.fda.gov /media/671588/downl oad For Patients: https://www.fda.gov /media/376773/downl oad [facility] Osmolalityon 04-21-2022 Osmolality [Osmolality] 309 mosm/kg High [facility] Osmolality (U) [Osmolality]O rdered By: Rachelle Rice on 04-21-2022 No established reference range. [facility] Osmolality [Osmolality]on Interpretation and review of laboratory results Abnormal [facility] Osmolality, UrineOrdered By: Rachelle Rice on 04-21-2022 Osmolality (U) [Osmolality] 220 mosm/kg mOsm/kg [facility] Procalcitoninon 04-21-2022 Procalcitonin [Mass/Vol] 0.19 ng/mL NINF - 0.50 ng/ml [facility] Procalcitonin [Mass/Vol]on 06-21-2021 Interpretation and review of laboratory results Normal [facility] Results <0.50 ng/ml represent a low risk of severe sepsis and/or septic shock. [facility] Protein / Creatinine Ratio, UrineOrdered By: Jose Wetzel on 04-21-2022 Protein/Creatinine (U) [Ratio] 6.0 High [facility] Protein/Creatinine (U) [Rati o]Ordered By: Jose Wetzel on 04-21-2022 Creatinine (U) [Mass/Vol] 31.5 mg/dL [facility] Interpretation and review of laboratory results Abnormal [facility] Protein (U) [Mass/Vol] 188.8 mg/dL [facility] Sodium (U) [Moles/Vol]on No established reference range. [facility] Sodium, Urine, Randomon Sodium (U) [Moles/Vol] 75 mmol/L [facility] Troponin x 2 (Now and Repeat in 3 hours)on 04-21-2022 Interp Troponin T Delta Change Probable acute injury or myocardial infarction. [facility] Interpretation and review of laboratory results Abnormal [facility] Troponin T 24 ng/L Critically high NINF - 22 ng/L [facility] Troponin T Delta % -33 % Critically low <20% of Baseline Troponin [facility] Troponin x 2 (Now and Repeat in 3 hours)Ordered By: Cindy Huerta on 04-21-2022 Inter Troponin T Delta Change Probable non-acute cardiac injury or late presentation of acute injury. [facility] Interpretation and review of laboratory results Abnormal [facility] Troponin T 29 ng/L Critically high NINF - 22 ng/L [facility] Troponin T Delta % -19 % <20% of Baseline Troponin [facility] US RENAL ONLYon 04-21-2022 US RENAL ONLY EXAMINATION: RENAL ULTRASOUND: 04/21/2022. HISTORY: Dx: R97.20 (Elevated PSA) Injury/Trauma or Illness?:Illness/Ot her How long have you had these symptoms (acute/chronic)?:Un known BESSIE COMPARISON FILMS: None relevant. FINDINGS: Static images from real-time examination using grayscale, color Doppler sonography are provided. The right kidney measures 12.6 x 5.3 x 4.5 cm. There is moderate hydronephrosis of the right kidney. There is no pericholecystic fluid, nephrolithiasis or obvious mass. The left kidney measures 12.4 x 5.3 x 4.8 cm with moderate hydronephrosis. There is no mass, nephrolithiasis, perinephric fluid collections. IMPRESSION: 1. Kwql-tu-rsrbvvno hydronephrosis of the right as well as the left kidney. No apparent cause for this is identified. [employer] Workstation ID: [id number] Dictated by: BREEZY SOSA on [place] Apr 22, 2022 8:25:37 AM EST Transcribed by: MARIEL AGUILAR on [place] Apr 22, 2022 8:32:29 AM EST Finalized by: BREEZY SOSA on [place] Apr 22, 2022 9:27:23 AM EST Normal [facility] Comment on above: Order Comment: Injur y/Trauma or Illness?:Illness/Other How long have you had these symptoms (acute/chronic)?:Unknown Reason for exam?:BESSIE History of cancer?:u Surgeries, chemotherapy, or radiation?:u Type of Exam?:Unknown Additional signs and symptoms?: US Renal Onlyon 04-21-2022 Radiology Study observation (narrative) [facility] UrinalysisOrdered By: Cady Nichols on 04-21-2022 Bacteria Auto Ql (U) None Seen None Se en /hpf [facility] Bilirubin Ql (U) Negative Negative [facility] th Clarity Refractometry automated (U) Clear Clear [facility] Color (U) Nisha Abnormal Colorless, Yellow [facility] Glucose Auto test strip (U) [Mass/Vol] Negative Negative mg/dL [facility] Hemoglobin Auto test strip Ql (U) Moderate Abnormal Negative [facility] Interpretation and review of laboratory results Abnormal [facility] Ketones (U) [Mass/Vol] Negative Negat nikki mg/dL [facility] Leukocyte esterase Auto test strip Ql (U) Trace Abnormal Negative [facility] Mucus Auto (Urine sed) [#/Area] Rare None Seen, Rare /lpf [facility] Nitrite Auto test strip Ql (U) Negative Negative [facility] pH (U) 6.0 [pH] 5 - 7 [facility] Protein (U) [Mass/Vol] 100 mg/dL Abnormal Negat nikki mg/dL [facility] RBC Auto (Urine sed) [#/Area] 139 High [facility] Specific gravity (U) [Rel density] 1.006 1.005 - 1.025 [facility] Urobilinogen (U) [Mass/Vol] mg/dL NINF - 2.0 mg/dL [facility] WBC Auto (Urine sed) [#/Area] 9 High [facility] Microscopic examination is performed on all urinalysis samples and only positive findings are reported. The test for blood on the chemical analytic portion of urinalysis may also be positive due to hemoglobinuria and myoglobinuria and if red blood cells are present they are quantified by microscopic examination. [facility] Basic metabolic 2000 panelOr dered By: Bo Rivero on 04-20-2022 Anion gap [Moles/Vol] 20 mmol/L 10 - 2 0 mmol/L [facility] Calcium [Mass/Vol] 8.7 mg/dL 8.4 - 10. 2 mg/dL [facility] Chloride [Moles/Vol] 111 mmol/L High 98 - 10 8 mmol/L [facility] Creatinine [Mass/Vol] 4.00 mg/dL High 0.80 - 1.30 mg/dL [facility] GFR/1.73 sq M.predicted CKD-EPI (S/P/Bld) [Vol rate/Area] 16 Low - PINF [facility] Comment on above: Estimated GFR was ca lculated using the 2020 CKD-EPI creatinine equation. Glucose [Mass/Vol] 159 mg/dL High 65 - 99 mg/dL [facility] HCO3 [Moles/Vol] 27 mmol/L 21 - 32 mmol/L [facility] Interpretation and review of laboratory results Abnormal [facility] Potassium [Moles/Vol] 3.9 mmol/L 3.5 - 5.1 mmol/L [facility] Sodium [Moles/Vol] 154 mmol/L High 135 - 145 mmol/L [facility] Urea nitrogen [Mass/Vol] 26 mg/dL High 8 - 25 mg/dL [facility] Urea nitrogen/Creatinine [Mass ratio] 6.5 mg/mg Low 10 - 20 [facility] has implemented the eGFR calculation approach that does not have a coefficient for race that conforms to the NKF-ASN Task Force Recommendations. [facility] CBC Auto Differentialon 11-0 Basophils (Bld) [#/Vol] 0.07 10*3/uL [facility] Basophils/100 WBC (Bld) 0.4 % [facility] Eosinophils (Bld) [#/Vol] 0.08 10*3/uL [facility] Eosinophils/100 WBC (Bld) 0.5 % [facility] Erythrocyte distribution width (RBC) [Entitic vol] 15.2 % High 11.6 - 14.8 % [facility] Hematocrit (Bld) [Volume fraction] 41.8 % 41 - 53 % [facility] Hemoglobin (Bld) [Mass/Vol] 13.7 g/dL 13.5 - 17.5 g/dL [facility] Immature granulocytes (Bld) [#/Vol] 0.07 10*3/uL [facility] Immature granulocytes/100 WBC (Bld) 0.40 % [facility] Comment on above: The IG parameter is the percentage of metamyelocytes, myelocytes and promyelocytes. An immature granulocyte count (IG) of 1% or more suggests the possibility of infection, an IG count of 3% is very likely related to an infection. Interpretation and review of laboratory results Abnormal [facility] Lymphocytes (Bld) [#/Vol] 1.33 10*3/uL [facility] Lymphocytes/100 WBC (Bld) 8.4 % [facility] MCH (RBC) [Entitic mass] 31.0 pg 26 - 34 pg [facility] MCHC (RBC) [Mass/Vol] 32.8 g/dL 31 - 37 g/dL [facility] MCV (RBC) [Entitic vol] 94.6 fL 80 - 100 fL [facility] Monocytes (Bld) [#/Vol] 1.09 10*3/uL High [facility] Monocytes/100 WBC (Bld) 6.9 % [facility] Neutrophils (Bld) [#/Vol] 13.15 10*3/uL High [facility] Neutrophils/100 WBC (Bld) 83.4 % [facility] Nucleated RBC (Bld) [#/Vol] 0.00 10*3/uL [facility] Nucleated RBC/100 WBC (Bld) [Ratio] 0.0 % [facility] Platelet mean volume (Bld) [Entitic vol] 10.9 fL 9.4 - 12.4 fL [facility] Platelets (Bld) [#/Vol] 298 10*3/uL [facility] RBC (Bld) [#/Vol] 4.42 10*6/uL Low [facility] ealth WBC (Bld) [#/Vol] 15.79 10*3/uL [facility] D-Dimer, QuantitativeOrdered By: Wong Stephens on 04-20-2022 Fibrin D-dimer FEU (PPP) [Mass/Vol] 1.37 [facility] Interpretation and review of laboratory results Abnormal [facility] A D-dimer concentration of <0.5 micrograms per milliliter FEU is considered a low probability for pulmonary embolus (PE) and deep venous thrombosis (DVT). Results of this test should always be interpreted in conjunction with the patient's medical history,clinical presentation, and other findings. Clinical diagnosis should not be based on the results of the D-dimer alone. [facility] NT Pro BNPon 04-20-2022 Natriuretic peptide.B prohormone N-Terminal [Mass/Vol] 2010 pg/mL High 0 - 300 pg/mL [facility] Natriuretic peptide.B prohor karina N-Terminal [Mass/Vol]on 04-20-2022 Interpretation and review of laboratory results Abnormal [facility] Pride Study Cut-offs Rule In: < /= 50 Years >450 pg/mL 51 Years - 75 Years >900 pg/mL 76 Years - 99 Years >1800 pg/mL Rule Out: All patients <300 pg/mL [facility] Troponin Onceon 04-20-2022 Interpretation and review of laboratory results Abnormal [facility] Troponin T 36 ng/L Critically high NINF - 22 ng/L [facility] Troponin T Interpretation Possible acute cardiac injury. [facility] XR CHEST PA/APon 04-20-2022 XR CHEST PA/AP EXAMINATION: XR CHEST PA/AP 04/20/2022 6:05 pm HISTORY: ORDERING SYSTEM PROVIDED HISTORY: dyspnea, TECHNOLOGIST PROVIDED HISTORY: Illness/Other Reason for exam: dyspnea Cancer History: u Surgery, RadiationHistory: u Encounter Type: Initial Additional signs and symptoms: ORDERING SYSTEM PROVIDED DIAGNOSIS CODES: R97.20 Elevated PSA N40.1 Benign prostatic hyperplasia with urinary retention R33.8 Benign prostatic hyperplasia with urinary retention COMPARISON: None. FINDINGS: Trachea, mediastinum and the diaphragm unremarkable. Heart size is mildly prominent. There is a small effusion in the lung bases. No pneumothorax is noted. There is mild haziness and prominence interstitial markings bilaterally. There is mild prominence of the central pulmonary vasculature. IMPRESSION: 1. Yadq-vp-mxipscic cardiomegaly. 2. Small effusions in the lung bases. Chronic changes and findings which may be consistent with mild to moderate CHF, please correlate clinically. Workstation ID: [id number] Dictated by: CHEKO DOWD on SatApr 20, 2022 7:09:19 PM EDT Transcribed by: CHEKO DOWD on SatApr 20, 2022 7:09:19 PM EDT Finalized by: CHEKO DOWD on SatApr 20, 2022 7:09:19 PM EDT Normal [facility] Comment on above: Order Comment: Injur y/Trauma or Illness?:Illness/Other How long have you had these symptoms (acute/chronic)?:Unknown Reason for exam?:dyspnea History of cancer?:u Surgeries, chemotherapy, or radiation?:u Type of Exam?:Initial Additional signs and symptoms?: XR Chest 1 Viewon 04-20-2022 1. Rhdu-cy-oljxpquz cardiomegaly. 2. Small effusions in the lung bases. Chronic changes and findings which may be consistent with mild to moderate CHF, please correlate clinically. Workstation ID: [id number] [facility] EXAMINATION: XR CHEST PA/AP 04/20/2022 6:05 pm HISTORY: ORDERING SYSTEM PROVIDED HISTORY: dyspnea, TECHNOLOGIST PROVIDED HISTORY: Illness/Other Reason for exam: dyspnea Cancer History: u Surgery, RadiationHistory: u Encounter Type: Initial Additional signs and symptoms: ORDERING SYSTEM PROVIDED DIAGNOSIS CODES: R97.20 Elevated PSA N40.1 Benign prostatic hyperplasia with urinary retention R33.8 Benign prostatic hyperplasia with urinary retention COMPARISON: None. FINDINGS: Trachea, mediastinum and the diaphragm unremarkable. Heart size is mildly prominent. There is a small effusion in the lung bases. No pneumothorax is noted. There is mild haziness and prominence interstitial markings bilaterally. There is mild prominence of the central pulmonary vasculature. [place] Dowd Cheko Yee, - 04/20/2022 EXAMINATION: XR CHEST PA/AP 04/20/2022 6:05 pm HISTORY: ORDERING SYSTEM PROVIDED HISTORY: dyspnea, TECHNOLOGIST PROVIDED HISTORY: Illness/Other Reason for exam: dyspnea Cancer History: u Surgery, RadiationHistory: u Encounter Type: Initial Additional signs and symptoms: ORDERING SYSTEM PROVIDED DIAGNOSIS CODES: R97.20 Elevated PSA N40.1 Benign prostatic hyperplasia with urinary retention R33.8 Benign prostatic hyperplasia with urinary retention COMPARISON: None. FINDINGS: Trachea, mediastinum and the diaphragm unremarkable. Heart size is mildly prominent. There is a small effusion in the lung bases. No pneumothorax is noted. There is mild haziness and prominence interstitial markings bilaterally. There is mild prominence of the central pulmonary vasculature. IMPRESSION: 1. Wann-sw-ujlzhypq cardiomegaly. 2. Small effusions in the lung bases. Chronic changes and findings which may be consistent with mild to moderate CHF, please correlate clinically. Workstation ID: [id number] [facility] Radiology Study observation (narrative) [place] XR Chest 1 ViewOrdered By: Derrick Dowd on 04-20-2022 [facility] Work Phone: [facility] Injection/Arthrocentes is: R lateral epicondyleon 07-31-2021 Sandra Cardozo CNP 07/31/2021 9:17 PM [facility] Injection/Arthrocen tesis: R lateral epicondyle Performed by: Sandra Cardozo CNP Authorized by: Sandra Cardozo CNP CPT 04216 - Medium Joint Arthrocentesis: Consent given by: Patient Time out: Immediately prior to the procedure a time out was called Physician or proceduralist has discussed critical or nonroutine steps, procedure duration and anticipated blood loss: Yes Supporting Documentation: Indications: Pain and diagnostic evaluation Procedure Details: Location: Elbow Site: R lateral epicondyle Prep: patient was prepped and aped in usual sterile fashion Needle size: 25 G Medications: 40 mg triamcinolone acetonide 40 mg/mL Anesthetic used:: Lidocaine 1% Anesthetic amount (mL): 2 Patient tolerance: Patient tolerated the procedure well with no immediate complications [facility] POC Hemoglobin A1Con 019 HbA1c (Bld) [Mass fraction] 5.9 % 4 - 6 % [facility] Interpretation and review of laboratory results Abnormal [facility] Vital Signs Date Time Vital Sign Value Performing Clinician Facility 12-07-2024 07:42-0400 Body temperature 98.29 [degF] Charly Kilgore MD Work Phone: [facility] 12-07-2024 07:42-0400 Diastolic blood pressure 74 mm[Hg] Charly Kilgore MD Work Phone: [facility] 12-07-2024 07:42-0400 Heart rate 66 /min Charly Kilgore MD Work Phone: [facility] 12-07-2024 07:42-0400 Respiratory rate 18 /min Charly Kilgore MD Work Phone: [facility] 12-07-2024 07:42-0400 SaO2% (BldA) [Mass fraction] 95 % Charly Kilgore MD Work Phone: [facility] 12-07-2024 07:42-0400 Systolic blood pressure 130 mm[Hg] Charly Kilgore MD Work Phone: [facility] 12-01-2024 13:44-0400 Body height 177.8 cm Santos RICHARDS DNP Work Phone: [facility] 12-01-2024 13:44-0400 Body mass index (BMI) [Ratio] 28.41 kg/m2 Santos RICHARDS DNP Work Phone: [facility] 12-01-2024 13:44-0400 Body weight 89.81 kg Santos RICHARDS DNP Work Phone: [facility] 12-01-2024 13:44-0400 Diastolic blood pressure 70 mm[Hg] Santos Garzon APRN-REJECTOR, DNP Work Phone: [facility] 12-01-2024 13:44-0400 Heart rate 90 /min Santos Silviano COYLEN-REJECTOR, DNP Work Phone: [facility] 12-01-2024 13:44-0400 SaO2% (BldA) [Mass fraction] 92 % Santosgurpreet Garzon MANAGER INVENTORY MANAGEMENT-REJECTOR, DNP Work Phone: [facility] 12-01-2024 13:44-0400 Systolic blood pressure 132 mm[Hg] Santosgurpreet Garzon MANAGER INVENTORY MANAGEMENT-REJECTOR, DNP Work Phone: [facility] 11-25-2024 13:52-0400 Body height 177.8 cm Monica Mg MANAGER INVENTORY MANAGEMENT-REJECTOR Work Phone: [facility] 11-25-2024 13:52-0400 Body mass index (BMI) [Ratio] 27.2 kg/m2 Monica Mg MANAGER INVENTORY MANAGEMENT-REJECTOR Work Phone: [facility] 11-25-2024 13:52-0400 Body weight 86 kg Monica Mg MANAGER INVENTORY MANAGEMENT-REJECTOR Work Phone: [facility] 11-25-2024 13:52-0400 Diastolic blood pressure 81 mm[Hg] Monica Knights MANAGER INVENTORY MANAGEMENT-REJECTOR Work Phone: [facility] 11-25-2024 13:52-0400 Heart rate 71 /min Monica Knights MANAGER INVENTORY MANAGEMENT-REJECTOR Work Phone: [facility] 11-25-2024 13:52-0400 SaO2% (BldA) [Mass fraction] 97 % Monica Knights MANAGER INVENTORY MANAGEMENT-REJECTOR Work Phone: [facility] 11-25-2024 13:52-0400 Systolic blood pressure 134 mm[Hg] Monica Knights MANAGER INVENTORY MANAGEMENT-REJECTOR Work Phone: [facility] 10-29-2024 13:02-0400 Body height 177.8 cm Charly Kilgore MD Work Phone: [facility] [employer] 10-29-2024 13:02-0400 Body mass index (BMI) [Ratio] 27.84 kg/m2 Charly Kilgore MD Work Phone: [facility] [employer] 10-29-2024 13:02-0400 Body weight 88 kg Charly Kilgore MD Work Phone: [facility] 10-29-2024 13:02-0400 Diastolic blood pressure 70 mm[Hg] Charly Kilgore MD Work Phone: [facility] 10-29-2024 13:02-0400 Heart rate 85 /min Charly Kilgore MD Work Phone: [facility] 10-29-2024 13:02-0400 Systolic blood pressure 126 mm[Hg] Charly Kilgore MD Work Phone: [facility] 09-11-2024 13:33-0400 Body height 177.8 cm Je Stentz PA-C Work Phone: [facility] 09-11-2024 13:33-0400 Body mass index (BMI) [Ratio] 27.98 kg/m2 Je Stentz PA-C Work Phone: [facility] 09-11-2024 13:33-0400 Body weight 88.45 kg Je Stentz PA-C Work Phone: [facility] 09-11-2024 13:33-0400 Diastolic blood pressure 80 mm[Hg] Je Stentz PA-C Work Phone: [facility] 09-11-2024 13:33-0400 Heart rate 65 /min Je Stentz PA-C Work Phone: [facility] 09-11-2024 13:33-0400 SaO2% (BldA) [Mass fraction] 97 % Je Stentz PA-C Work Phone: [facility] 09-11-2024 13:33-0400 Systolic blood pressure 122 mm[Hg] Je Lira PA-C Work Phone: [facility] 07-22-2024 14:16-0500 Body mass index (BMI) [Ratio] 28.06 kg/m2 Price Reeves MD Work Phone: [facility] 07-22-2024 14:16-0500 Body weight 88.91 kg Price Reeves MD Work Phone: [facility] 07-22-2024 14:16-0500 Diastolic blood pressure 70 mm[Hg] Price Reeves MD Work Phone: [facility] 07-22-2024 14:16-0500 Heart rate 142 /min Price Reeves MD Work Phone: [facility] 07-22-2024 14:16-0500 Systolic blood pressure 128 mm[Hg] Price Reeves MD Work Phone: [facility] 05-07-2024 13:35-0500 Body height 178 cm Price Reeves MD Work Phone: [facility] 05-07-2024 13:35-0500 Body mass index (BMI) [Ratio] 27.34 kg/m2 Price Reeves MD Work Phone: [facility] 05-07-2024 13:35-0500 Body weight 86.64 kg Price Reeves MD Work Phone: [facility] 05-07-2024 13:35-0500 Diastolic blood pressure 79 mm[Hg] Price Reeves MD Work Phone: [facility] 05-07-2024 13:35-0500 Heart rate 96 /min Price Reeves MD Work Phone: [facility] 05-07-2024 13:35-0500 Systolic blood pressure 125 mm[Hg] Price Reeves MD Work Phone: 7(234)794-281453 [address] 05-05-2024 13:35-0500 Diastolic blood pressure 76 mm[Hg] Price Reeves MD Work Phone: 4(208)326-18[address] [place] [address] 05-05-2024 13:35-0500 Heart rate 65 /min Price Reeves MD Work Phone: [facility] 05-05-2024 13:35-0500 Respiratory rate 17 /min Price Reeves MD Work Phone: [facility] 05-05-2024 13:35-0500 SaO2% (BldA) [Mass fraction] 95 % Price Reeves MD Work Phone: [facility] 05-05-2024 13:35-0500 Systolic blood pressure 125 mm[Hg] Price Reeves MD Work Phone: [facility] 05-05-2024 12:35-0500 Body temperature 97.7 [degF] Price Reeves MD Work Phone: [facility] 05-05-2024 10:08-0500 Body height 178 cm Price Reeves MD Work Phone: [facility] 05-05-2024 10:08-0500 Body mass index (BMI) [Ratio] 27.36 kg/m2 Price Reeves MD Work Phone: [facility] 05-05-2024 10:08-0500 Body weight 86.7 kg Price Reeves MD Work Phone: [facility] 03-26-2024 14:31-0400 Body mass index (BMI) [Ratio] 27.69 kg/m2 Jenn Callahan MD Work Phone: [facility] 03-26-2024 14:31-0400 Body weight 87.54 kg Jenn Callahan MD Work Phone: [facility] 03-26-2024 14:31-0400 Diastolic blood pressure 79 mm[Hg] Jenn Callahan MD Work Phone: [facility] 03-26-2024 14:31-0400 Heart rate 74 /min Jenn Callahan MD Work Phone: [facility] 03-26-2024 14:31-0400 SaO2% (BldA) [Mass fraction] 95 % Jenn Callahan MD Work Phone: [facility] 03-26-2024 14:31-0400 Systolic blood pressure 153 mm[Hg] Jenn Callahan MD Work Phone: [facility] 03-11-2024 14:47-0400 Body mass index (BMI) [Ratio] 27.26 kg/m2 Price Reeves MD Work Phone: [facility] 03-11-2024 14:47-0400 Body weight 86.18 kg Price Reeves MD Work Phone: [facility] 03-11-2024 14:47-0400 Diastolic blood pressure 77 mm[Hg] Price Reeves MD Work Phone: [facility] 03-11-2024 14:47-0400 Heart rate 68 /min Price Reeves MD Work Phone: [facility] 03-11-2024 14:47-0400 Systolic blood pressure 153 mm[Hg] Price Reeves MD Work Phone: [facility] 03-04-2024 14:23-0400 Body height 177.8 cm Price Reeves MD Work Phone: [facility] 03-04-2024 14:23-0400 Body mass index (BMI) [Ratio] 27.41 kg/m2 Price Reeves MD Work Phone: [facility] 03-04-2024 14:23-0400 Body weight 86.64 kg Price Reeevs MD Work Phone: [facility] 02-27-2024 14:09-0400 Body height 177.8 cm Keny Reddy DO Work Phone: [facility] 02-27-2024 14:09-0400 Body mass index (BMI) [Ratio] 27.26 kg/m2 Keny Reddy DO Work Phone: [facility] 02-27-2024 14:09-0400 Body weight 86.18 kg Keny Reddy DO Work Phone: [facility] 02-27-2024 14:09-0400 Diastolic blood pressure 79 mm[Hg] Keny Oberhauser DO Work Phone: [facility] 02-27-2024 14:09-0400 Heart rate 71 /min Keny Oberhauser DO Work Phone: [facility] 02-27-2024 14:09-040 Systolic blood pressure 138 mm[Hg] Keny Oberhauser DO Work Phone: [facility] 11-28-2023 14:30-0400 Body height 177.8 cm Price Reeves MD Work Phone: [facility] 11-28-2023 14:30-0400 Body mass index (BMI) [Ratio] 26.69 kg/m2 Price Reeves MD Work Phone: [facility] 11-28-2023 14:30-0400 Body weight 84.37 kg Price Reeves MD Work Phone: [facility] 08-29-2023 14:45-0400 Body mass index (BMI) [Ratio] 25.84 kg/m2 Jenn Callahan MD Work Phone: [facility] 08-29-2023 14:45-0400 Body weight 81.69 kg Jenn Callahan MD Work Phone: [facility] 08-29-2023 14:45-0400 Diastolic blood pressure 76 mm[Hg] Jenn Callahan MD Work Phone: [facility] 08-29-2023 14:45-0400 Heart rate 78 /min Jenn Callahan MD Work Phone: [facility] 08-29-2023 14:45-0400 SaO2% (BldA) [Mass fraction] 97 % Jenn Callahan MD Work Phone: [facility] 08-29-2023 14:45-0400 Systolic blood pressure 131 mm[Hg] Jenn Callahan MD Work Phone: [facility] 08-22-2023 14:46-0500 Body height 177.8 cm Price Reeves MD Work Phone: [facility] 08-22-2023 14:46-0500 Body mass index (BMI) [Ratio] 25.2 kg/m2 Price Reeves MD Work Phone: [facility] 08-22-2023 14:46-0500 Body weight 79.65 kg Price Reeves MD Work Phone: [facility] 08-22-2023 14:46-0500 Diastolic blood pressure 79 mm[Hg] Price Reeves MD Work Phone: 4(695)127-316[address] [place] [address] 08-22-2023 14:46-0500 Heart rate 90 /min Price Reeves MD Work Phone: 3(473)768-[address] [place] [address] 08-22-2023 14:46-0500 Systolic blood pressure 135 mm[Hg] Price Reeves MD Work Phone: 0(739)712-979889 [place] [address] 08-05-2023 13:44-0500 Body mass index (BMI) [Ratio] 25.54 kg/m2 Price Reeves MD Work Phone: 9(482)414-008189 [place] [address] 08-05-2023 13:44-0500 Body weight 80.74 kg Price Reeves MD Work Phone: 3(534)752-056489 [place] [address] 08-05-2023 13:44-0500 Respiratory rate 18 /min Price Reeves MD Work Phone: 2(345)[phone] [place] [address] 07-25-2023 14:35-0500 Body weight 79.38 kg Urology Room [facility] 07-24-2023 14:32-0500 Body weight 80.74 kg Price Reeves MD Work Phone: 5(168)002-118799 [place] [address] 07-24-2023 14:32-0500 Respiratory rate 16 /min Price Reeves MD Work Phone: 7(027)[phone] [place] [address] 05-01-2023 11:27-0500 Diastolic blood pressure 79 mm[Hg] Florian Whitt MD Work Phone: [facility] 05-01-2023 11:27-0500 Heart rate 80 /min Florian Whitt MD Work Phone: [facility] 05-01-2023 11:27-0500 SaO2% (BldA) [Mass fraction] 97 % Florian Whitt MD Work Phone: [facility] 05-01-2023 11:27-0500 Systolic blood pressure 162 mm[Hg] Florian Whitt MD Work Phone: [facility] 04-15-2023 11:18-0400 Body mass index (BMI) [Ratio] 25.83 kg/m2 Jenn Callahan MD Work Phone: [facility] 04-15-2023 11:18-0400 Body weight 81.65 kg Jenn Callahan MD Work Phone: [facility] 04-15-2023 11:18-0400 Diastolic blood pressure 67 mm[Hg] Jenn Callahan MD Work Phone: [facility] 04-15-2023 11:18-0400 Heart rate 83 /min Jenn Callahan MD Work Phone: [facility] 04-15-2023 11:18-0400 Systolic blood pressure 148 mm[Hg] Jenn Callahan MD Work Phone: [facility] 03-28-2023 14:08-0400 Body height 177.8 cm Kelvin Kohler MD Work Phone: [facility] 03-28-2023 14:08-0400 Body mass index (BMI) [Ratio] 25.63 kg/m2 Kelvin Kohler MD Work Phone: [facility] 03-28-2023 14:08-0400 Body temperature 98.71 [degF] Kelvin Kohler MD Work Phone: [facility] 03-28-2023 14:08-0400 Body weight 81.01 kg Kelvin Kohler MD Work Phone: [facility] 03-28-2023 14:08-0400 Diastolic blood pressure 67 mm[Hg] Kelvin Kholer MD Work Phone: [facility] 03-28-2023 14:08-0400 Heart rate 77 /min Kelvin Kohler MD Work Phone: [facility] 03-28-2023 14:08-0400 SaO2% (BldA) [Mass fraction] 97 % Kelvin Kohler MD Work Phone: [facility] 03-28-2023 14:08-0400 Systolic blood pressure 135 mm[Hg] Kelvin Kohler MD Work Phone: [facility] 01-07-2023 11:13-0400 Body mass index (BMI) [Ratio] 26.11 kg/m2 Jenn Callahan MD Work Phone: [facility] 01-07-2023 11:13-0400 Body weight 82.56 kg Jenn Callahan MD Work Phone: [facility] 01-07-2023 11:13-0400 Diastolic blood pressure 71 mm[Hg] Jenn Callahan MD Work Phone: [facility] 01-07-2023 11:13-0400 Heart rate 67 /min Jenn Callahan MD Work Phone: [facility] 01-07-2023 11:13-0400 Systolic blood pressure 133 mm[Hg] Jenn Callahan MD Work Phone: [facility] 10-25-2022 14:19-0400 Diastolic blood pressure 70 mm[Hg] Kelvin Kohler MD Work Phone: [facility] 10-25-2022 14:19-0400 Systolic blood pressure 145 mm[Hg] Kelvin Kohler MD Work Phone: [facility] 10-25-2022 14:08-0400 Body height 177.8 cm Kelvin Kohler MD Work Phone: [facility] 10-25-2022 14:08-0400 Body mass index (BMI) [Ratio] 27.35 kg/m2 Kelvin Kohler MD Work Phone: [facility] 10-25-2022 14:08-0400 Body temperature 99.1 [degF] Kelvin Kohler MD Work Phone: [facility] 10-25-2022 14:08-0400 Body weight 86.46 kg Kelvin Kohler MD Work Phone: [facility] 10-25-2022 14:08-0400 Heart rate 69 /min Kelvin Kohler MD Work Phone: [facility] 10-25-2022 14:08-0400 SaO2% (BldA) [Mass fraction] 95 % Kelvin Kohler MD Work Phone: [facility] 10-24-2022 09:11-0400 Diastolic blood pressure 81 mm[Hg] Florian Whitt MD Work Phone: [facility] 10-24-2022 09:11-0400 Heart rate 83 /min Florian Whitt MD Work Phone: [facility] 10-24-2022 09:11-0400 SaO2% (BldA) [Mass fraction] 95 % Florian Whitt MD Work Phone: [facility] 10-24-2022 09:11-0400 Systolic blood pressure 156 mm[Hg] Florian Whitt MD Work Phone: [facility] 10-04-2022 11:18-0400 Body mass index (BMI) [Ratio] 27.61 kg/m2 Jenn Callahan MD Work Phone: [facility] 10-04-2022 11:18-0400 Body weight 87.27 kg Jenn Callahan MD Work Phone: [facility] 10-04-2022 11:18-0400 Diastolic blood pressure 77 mm[Hg] Jenn Callahan MD Work Phone: [facility] 10-04-2022 11:18-0400 Heart rate 72 /min Jenn Callahan MD Work Phone: [facility] 10-04-2022 11:18-0400 SaO2% (BldA) [Mass fraction] 95 % Jenn Callahan MD Work Phone: [facility] 10-04-2022 11:18-0400 Systolic blood pressure 137 mm[Hg] Jenn Callahan MD Work Phone: [facility] 09-27-2022 10:50-0400 Body mass index (BMI) [Ratio] 27.66 kg/m2 Jenn Callahan MD Work Phone: [facility] 09-27-2022 10:50-0400 Body weight 87.45 kg Jenn Callahan MD Work Phone: [facility] 09-27-2022 10:50-0400 Diastolic blood pressure 91 mm[Hg] Jenn Callahan MD Work Phone: [facility] 09-27-2022 10:50-0400 Heart rate 84 /min Jenn Callahan MD Work Phone: [facility] 09-27-2022 10:50-0400 SaO2% (BldA) [Mass fraction] 95 % Jenn Callahan MD Work Phone: [facility] 09-27-2022 10:50-0400 Systolic blood pressure 155 mm[Hg] Jenn Callahan MD Work Phone: [facility] 09-20-2022 11:18-0400 Body mass index (BMI) [Ratio] 28.15 kg/m2 Jenn Callahan MD Work Phone: [facility] 09-20-2022 11:18-0400 Body weight 89 kg Jenn Callahan MD Work Phone: [facility] 09-20-2022 11:18-0400 Diastolic blood pressure 87 mm[Hg] Jenn Callahan MD Work Phone: [facility] 09-20-2022 11:18-0400 Heart rate 81 /min Jenn Callahan MD Work Phone: [facility] 09-20-2022 11:18-0400 Systolic blood pressure 150 mm[Hg] Jenn Callahan MD Work Phone: [facility] 09-13-2022 11:27-0400 Body mass index (BMI) [Ratio] 28.15 kg/m2 Jenn Callahan MD Work Phone: [facility] 09-13-2022 11:27-0400 Body weight 89 kg Jenn Callahan MD Work Phone: [facility] 09-13-2022 11:27-0400 Diastolic blood pressure 79 mm[Hg] Jenn Callahan MD Work Phone: [facility] 09-13-2022 11:27-0400 Heart rate 80 /min Jenn Callahan MD Work Phone: [facility] 09-13-2022 11:27-0400 Systolic blood pressure 134 mm[Hg] Jenn Callahan MD Work Phone: [facility] 09-06-2022 11:04-0400 Body mass index (BMI) [Ratio] 28.5 kg/m2 Jenn Callahan MD Work Phone: [facility] 09-06-2022 11:04-0400 Body weight 90.08 kg Jenn Callahan MD Work Phone: [facility] 09-06-2022 11:04-0400 Diastolic blood pressure 89 mm[Hg] Jenn Callahan MD Work Phone: [facility] 09-06-2022 11:04-0400 Heart rate 102 /min Jenn Callahan MD Work Phone: [facility] 09-06-2022 11:04-0400 Systolic blood pressure 153 mm[Hg] Jenn Callahan MD Work Phone: [facility] 08-30-2022 11:30-0400 Body mass index (BMI) [Ratio] 28.64 kg/m2 Jenn Callahan MD Work Phone: [facility] 08-30-2022 11:30-0400 Body weight 90.54 kg Jenn Callahan MD Work Phone: [facility] 08-30-2022 11:30-0400 Diastolic blood pressure 84 mm[Hg] Jenn Callahan MD Work Phone: [facility] 08-30-2022 11:30-0400 Heart rate 81 /min Jenn Callahan MD Work Phone: [facility] 08-30-2022 11:30-0400 SaO2% (BldA) [Mass fraction] 95 % Jenn Callahan MD Work Phone: [facility] 08-30-2022 11:30-0400 Systolic blood pressure 146 mm[Hg] Jenn Callahan MD Work Phone: [facility] 07-23-2022 11:05-0500 Body mass index (BMI) [Ratio] 29.84 kg/m2 Jenn Callahan MD Work Phone: [facility] 07-23-2022 11:05-0500 Body weight 94.35 kg Jenn Callahan MD Work Phone: [facility] 07-23-2022 11:05-0500 Diastolic blood pressure 84 mm[Hg] Jenn Callahan MD Work Phone: [facility] 07-23-2022 11:05-0500 Heart rate 84 /min Jenn Callahan MD Work Phone: [facility] 07-23-2022 11:05-0500 SaO2% (BldA) [Mass fraction] 96 % Jenn Callahan MD Work Phone: [facility] 07-23-2022 11:05-0500 Systolic blood pressure 147 mm[Hg] Jenn Callahan MD Work Phone: [facility] 06-07-2022 11:36-0500 Body height 177.8 cm Kelvin Kohler MD Work Phone: [facility] 06-07-2022 11:36-0500 Body mass index (BMI) [Ratio] 29.18 kg/m2 Kelvin Kohler MD Work Phone: [facility] 06-07-2022 11:36-0500 Body temperature 99.1 [degF] Kelvin Kohler MD Work Phone: [facility] 06-07-2022 11:36-0500 Body weight 92.26 kg Kelvin Kohler MD Work Phone: [facility] 06-07-2022 11:36-0500 Diastolic blood pressure 82 mm[Hg] Kelvin Kohler MD Work Phone: [facility] 06-07-2022 11:36-0500 Heart rate 90 /min Kelvin Kohler MD Work Phone: [facility] 06-07-2022 11:36-0500 SaO2% (BldA) [Mass fraction] 95 % Kelvin Kohler MD Work Phone: [facility] 06-07-2022 11:36-0500 Systolic blood pressure 137 mm[Hg] Kelvin Kohler MD Work Phone: [facility] 06-06-2022 10:07-0500 Diastolic blood pressure 92 mm[Hg] Florian Whitt MD Work Phone: [facility] 06-06-2022 10:07-0500 Heart rate 82 /min Florian Whitt MD Work Phone: [facility] 06-06-2022 10:07-0500 SaO2% (BldA) [Mass fraction] 97 % Florian Whitt MD Work Phone: [facility] 06-06-2022 10:07-0500 Systolic blood pressure 154 mm[Hg] Florian Whitt MD Work Phone: [facility] 04-25-2022 11:13-0500 Diastolic blood pressure 90 mm[Hg] Florian Whitt MD Work Phone: [facility] 04-25-2022 11:13-0500 Heart rate 76 /min Florian Whitt MD Work Phone: [facility] 04-25-2022 11:13-0500 SaO2% (BldA) [Mass fraction] 91 % Florian Whitt MD Work Phone: [facility] 04-25-2022 11:13-0500 Systolic blood pressure 163 mm[Hg] Florian Whitt MD Work Phone: [facility] 04-23-2022 12:15-0500 SaO2% (BldA) [Mass fraction] 91 % Florian Whitt MD Work Phone: [facility] 04-23-2022 11:48-0500 Body temperature 98.29 [degF] Florian Whitt MD Work Phone: [facility] 04-23-2022 11:48-0500 Diastolic blood pressure 75 mm[Hg] Florian Whitt MD Work Phone: [facility] 04-23-2022 11:48-0500 Heart rate 87 /min Florian Whitt MD Work Phone: [facility] 04-23-2022 11:48-0500 Systolic blood pressure 171 mm[Hg] Florian Whitt MD Work Phone: [facility] 04-23-2022 08:32-0500 Respiratory rate 16 /min Florian Whitt MD Work Phone: [facility] 04-20-2022 13:54-0400 Body height 177.8 cm Florian Whitt MD Work Phone: [facility] 04-20-2022 13:54-0400 Body mass index (BMI) [Ratio] 31.98 kg/m2 Florian Whitt MD Work Phone: [facility] 04-20-2022 13:54-0400 Body weight 101.1 kg Florian Whitt MD Work Phone: [facility] 07-31-2021 09:55-0500 Body height 177.8 cm Sandra Cardozo CNP Work Phone: [facility] 07-31-2021 09:55-0500 Body mass index (BMI) [Ratio] 30.13 kg/m2 Sandra Cardozo CNP Work Phone: [facility] 07-31-2021 09:55-0500 Body weight 95.25 kg Sandra Cardozo CNP Work Phone: [facility] 03-05-2019 15:25-0400 BMI (Body Mass Index) 30.06 kg/m2 [facility] 03-05-2019 15:25-0400 Body weight 94.35 kg [facility] 03-05-2019 15:25-0400 BP Diastolic 79 mm[Hg] [facility] 03-05-2019 15:25-0400 BP Systolic 127 mm[Hg] [facility] 03-05-2019 15:25-0400 Height 177.2 cm [facility] 03-05-2019 15:25-0400 Pulse (Heart Rate) 84 /min [facility] 03-05-2019 15:25-0400 Pulse Oximetry 93 % [facility] 09-14-2018 16:55-0400 BP Diastolic 84 mm[Hg] [facility] 09-14-2018 16:55-0400 BP Systolic 130 mm[Hg] [facility] 09-14-2018 16:08-0400 BMI (Body Mass Index) 28.7 kg/m2 [facility] 09-14-2018 16:08-0400 Body Temperature 98.91 [degF] [facility] 09-14-2018 16:08-0400 Body weight 90.72 kg [facility] 09-14-2018 16:08-0400 Height 177.8 cm [facility] 09-14-2018 16:08-0400 Pulse (Heart Rate) 83 /min [facility] 09-14-2018 16:08-0400 Pulse Oximetry 96 % [facility] 09-14-2018 16:08-0400 Respiratory Rate 16 /min [facility] Encounters Encounter Date Encounter Type Care Provider Facility Start: 12-08-2024 Evaluation and manag ement of inpatient [facility] Start: 12-02-2024 End: 12-07-2024 Evaluation and management of inpatient Charly Kilgore MD Work Phone: [facility] PCU H6 Comment on above: Spondylolisthesis of lumbar region (Primary Dx) Start: 12-01-2024 End: 12-01-2024 Office outpatient new 45 minutes Santos Garzon APRN-REJECTOR, DNP Work Phone: [facility] Comment on above: Encounter for pre-op erative cardiovascular clearance (Primary Dx); Premature atrial complexes Start: 12-01-2024 End: 12-01-2024 Preoperative state Santos Garzon MANAGER INVENTORY MANAGEMENT-REJECTOR, DNP Work Phone: [facility] Work Phone: Start: 12-01-2024 End: 12-01-2024 ambulatory SANTOS GARZON [facility] Ambulatory Start: 11-26-2024 End: 11-26-2024 Telephone encounter Makayla Freeman LPN [facility] Start: 11-25-2024 End: 11-25-2024 Subsequent hospital visit by physician Marvin Torres [facility] Comment on above: Pars defect of lumba r spine Start: 11-25-2024 End: 11-25-2024 ambulatory MONICA MG [facility] Start: 11-25-2024 End: 11-25-2024 Office outpatient visit 25 minutes Monica Mg MANAGER INVENTORY MANAGEMENT-REJECTOR Work Phone: 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 Comment on above: Positive colorectal cancer screening using Cologuard test (Primary Dx); Primary hypertension; Screening for lipid disorders; Adenocarcinoma of prostate (Multi); Basal cell carcinoma (BCC) of skin of other part of face Start: 09-11-2024 End: 09-11-2024 ambulatory [facility] Start: 08-27-2024 End: 08-27-2024 Office outpatient visit 25 minutes Price Reeves MD Work Phone: [facility] Comment on above: Other stricture of u rethra in male; Malignant neoplasm of prostate (Multi); Nocturia; History of bladder stone; 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 urethral stricture; Primary hypertension Start: 08-27-2024 End: 08-27-2024 ambulatory [facility] Start: 07-22-2024 End: 07-22-2024 Office outpatient visit 25 minutes Price Reeves MD Work Phone: [facility] Comment on above: Malignant neoplasm o f prostate (Multi); Nocturia; 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 urethral stricture; Urinary hesitancy; History of bladder stone Start: 07-22-2024 End: 07-22-2024 ambulatory [facility] Start: 05-07-2024 End: 05-07-2024 ambulatory [facility] Start: 05-07-2024 End: 05-07-2024 Postop follow up visit related to original px Price Reeves MD Work Phone: [facility] Comment on above: 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 urethral stricture; Malignant neoplasm of prostate (Multi); Nocturia Start: 05-05-2024 End: 05-05-2024 Subsequent hospital visit by physician Price Reeves MD Work Phone: [facility] [place] Comment on above: Benign prostatic hyp erplasia with urinary retention (Primary Dx); Stricture of male urethra, unspecified stricture type; Urinary retention Start: 04-20-2024 ambulatory [facility] Start: 03-26-2024 End: 04-26-2024 ambulatory Jenn Callahan MD Work Phone: [facility] Comment on above: Adenocarcinoma of pr ostate (HCC) (Primary Dx) Start: 03-26-2024 End: 03-26-2024 Patient encounter procedure Jenn Callahan MD Work Phone: [facility] Start: 03-11-2024 End: 03-11-2024 Office outpatient visit 25 minutes Price Reeves MD Work Phone: [facility] Comment on above: Malignant neoplasm o f prostate (Multi); History of bladder stone; Ureteral stricture; Nocturia; Urinary hesitancy; Urinary frequency Start: 03-11-2024 End: 03-11-2024 ambulatory [facility] Ambulatory Start: 03-04-2024 End: 03-04-2024 Patient encounter procedure Price Reeves MD Work Phone: [facility] Comment on above: Ureteral stricture ( Primary Dx) Start: 03-04-2024 End: 03-04-2024 ambulatory [facility] Ambulatory Start: 02-27-2024 End: 02-27-2024 ambulatory [facility] Start: 02-27-2024 End: 02-27-2024 Office outpatient new 45 minutes Keny Barry AGUILAR Work Phone: [facility] Comment on above: Screening for colon cancer (Primary Dx); 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 urethral stricture; Primary hypertension; Screening for lipid disorders; Skin lesion; Benign prostatic hyperplasia with urinary retention; Nocturia; Adenocarcinoma of prostate (Multi) Start: 02-27-2024 End: 02-27-2024 ambulatory [facility] Ambulatory Start: 11-28-2023 End: 11-28-2023 Patient encounter procedure Price Reeves MD Work Phone: [facility] Comment on above: History of bladder s tone (Primary Dx); Other stricture of urethra in male Start: 08-29-2023 End: 09-29-2023 ambulatory Jenn Callahan MD Work Phone: [facility] Comment on above: Adenocarcinoma of pr ostate (HCC) (Primary Dx) Start: 08-29-2023 End: 08-29-2023 Patient encounter procedure Jenn Callahan MD Work Phone: [facility] Start: 08-22-2023 End: 08-22-2023 Office outpatient visit 25 minutes Price Reeves MD Work Phone: [facility] Comment on above: Malignant neoplasm o f prostate (CMS/HCC); 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 urethral stricture; Nocturia Start: 08-05-2023 End: 08-05-2023 Office outpatient visit 25 minutes Price Reeves MD Work Phone: [facility] Comment on above: 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 urethral stricture (Primary Dx); Urinary hesitancy; Malignant neoplasm of prostate (CMS/HCC); Nocturia; Urinary frequency; Bladder stone Start: 07-27-2023 ambulatory KELVIN KOHLER [facility] Ambulatory Start: 07-25-2023 End: 07-25-2023 ambulatory KELVIN KOHLER [facility] Start: 07-25-2023 End: 07-25-2023 Patient encounter procedure Urology [id number] Procedure Room [facility] Comment on above: Urinary hesitancy Start: 07-24-2023 End: 07-24-2023 Office outpatient visit 25 minutes Price Reeves MD Work Phone: [facility] Comment on above: Malignant neoplasm o f prostate (CMS/HCC); Urinary frequency; Nocturia; Urinary hesitancy Start: 07-05-2023 Orders Only Kelvin King nd, MD Work Phone: [facility] Comment on above: 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); Neuropathic pain of perineum; Penile pain Start: 06-20-2023 ambulatory KELVIN KOHLER [facility] Ambulatory Start: 06-07-2023 Refill Kelvin King nd, MD Work Phone: [facility] Comment on above: Primary hypertension Start: 05-23-2023 Orders Only Florian Whitt MD Work Phone: [facility] Start: 05-20-2023 End: 05-20-2023 Clinical Support Keny Rajput RN [facility] Comment on above: Urinary tract infect ion with hematuria, site unspecified (Primary Dx) Start: 05-01-2023 End: 05-01-2023 ambulatory KELVIN KOHLER [facility] Ambulatory Start: 05-01-2023 End: 05-01-2023 Office outpatient visit 15 minutes Florian Whitt MD Work Phone: [facility] Comment on above: Adenocarcinoma of pr ostate (HCC); Urinary frequency; Insomnia, unspecified type Start: 04-15-2023 End: 04-15-2023 ambulatory Jenn Callahan MD Work Phone: [facility] Comment on above: Adenocarcinoma of pr ostate (HCC) (Primary Dx) Start: 04-15-2023 End: 04-15-2023 Patient encounter procedure Jenn Callahan MD Work Phone: [facility] Start: 04-12-2023 Orders Only Ariadna Levy MD Work Phone: [facility] Comment on above: Adenocarcinoma of pr ostate (HCC) (Primary Dx) Start: 04-09-2023 Refill Kelvin King nd, MD Work Phone: [facility] Start: 03-28-2023 End: 03-28-2023 ambulatory KELVIN KOHLER [facility] Ambulatory Start: 03-28-2023 End: 03-28-2023 Office outpatient visit 15 minutes Kelvin Kohler MD Work Phone: [facility] Comment on above: Primary hypertension (Primary Dx); Urinary urgency Start: 02-25-2023 Orders Only Florian Whitt MD Work Phone: [facility] Start: 02-22-2023 Orders Only Florian Whitt MD Work Phone: [facility] Start: 02-15-2023 Refill Kelvin King nd, MD Work Phone: [facility] Start: 01-30-2023 End: 01-30-2023 ambulatory FLORIAN NOVA [facility] Start: 01-18-2023 Coordination of care plan Lee Ann soriano RN Patient Navigator Start: 01-07-2023 End: 01-07-2023 ambulatory Jenn Callahan MD Work Phone: [facility] Comment on above: Adenocarcinoma of pr ostate (HCC) (Primary Dx) Start: 01-07-2023 End: 01-07-2023 Patient encounter procedure Jenn Callahan MD Work Phone: [facility] Start: 10-25-2022 End: 10-25-2022 Office outpatient visit 25 minutes Kelvin Kohler MD Work Phone: [facility] Comment on above: Hypertension, unspec ified type (Primary Dx); Adenocarcinoma of prostate (HCC); Painful bladder spasm; Sleep disorder Start: 10-25-2022 End: 10-25-2022 Orders Only Florian Whitt MD Work Phone: [facility] Comment on above: Urinary tract infect ion without hematuria, site unspecified (Primary Dx) Urinary retention wi th incomplete bladder emptying (Primary Dx) Start: 10-24-2022 End: 10-24-[address] [facility] Start: 10-24-2022 End: 10-24-2022 Patient encounter procedure Florian Whitt MD Work Phone: [facility] Comment on above: Urinary tract infect ion without hematuria, site unspecified (Primary Dx); Adenocarcinoma of prostate (HCC); Urinary retention with incomplete bladder emptying Start: 10-13-2022 Orders Only Florian Whitt MD Work Phone: [facility] Start: 10-11-2022 End: 10-11-2022 Clinical Support Rey Burkett RN [facility] Comment on above: Urinary tract infect ion without hematuria, site unspecified [N39.0 (ICD-10-CM)] (Primary Dx) Start: 10-11-2022 End: 10-11-[address] [facility] Start: 10-09-2022 Coordination of care plan Lee Ann soriano RN Patient Navigator Start: 10-04-2022 End: 10-04-2022 ambulatory Jenn Callahan MD Work Phone: [facility] Comment on above: Adenocarcinoma of pr ostate (HCC) (Primary Dx) Start: 10-04-2022 End: 10-04-2022 Patient encounter procedure Jenn Callahan MD Work Phone: [facility] Start: 10-01-2022 Documentation procedure Pooja Reeves [facility] Start: 10-01-2022 End: 10-01-[address] [facility] Start: 09-27-2022 End: 09-27-2022 ambulatory Jenn Callahan MD Work Phone: [facility] Comment on above: Adenocarcinoma of pr ostate (HCC) (Primary Dx) Start: 09-27-2022 End: 09-27-2022 Patient encounter procedure Jenn Callahan MD Work Phone: [facility] Start: 09-21-2022 End: 09-21-2022 ambulatory KELVIN SOILA [facility] Start: 09-21-2022 End: 09-21-2022 ambulatory KELVIN CM [facility] Start: 09-21-2022 End: 09-21-2022 Clinical Support Rey Burkett RN [facility] Comment on above: Bladder spasms (Prim harmeet Dx) Start: 09-20-2022 End: 09-20-2022 ambulatory Jenn Callahan MD Work Phone: [facility] Comment on above: Adenocarcinoma of pr ostate (HCC) (Primary Dx) Start: 09-20-2022 End: 09-20-2022 Patient encounter procedure Jenn Callahan MD Work Phone: [facility] Start: 09-19-2022 Orders Only Florian Whitt MD Work Phone: [facility] Comment on above: Bladder spasms (Prim harmeet Dx) Start: 09-13-2022 End: 09-13-2022 ambulatory Jenn Callahan MD Work Phone: [facility] Comment on above: Adenocarcinoma of pr ostate (HCC) (Primary Dx) Start: 09-13-2022 End: 09-13-2022 Patient encounter procedure Jenn Callahan MD Work Phone: [facility] Start: 09-07-2022 Coordination of care plan Lee Ann soriano RN Patient Navigator Start: 09-06-2022 End: 09-06-2022 ambulatory Jenn Callahan MD Work Phone: [facility] Comment on above: Adenocarcinoma of pr ostate (HCC) (Primary Dx) Start: 09-06-2022 End: 09-06-2022 Patient encounter procedure Jenn Callahan MD Work Phone: [facility] Start: 08-30-2022 End: 08-30-2022 ambulatory Jenn Callahan MD Work Phone: [facility] Comment on above: Adenocarcinoma of pr ostate (HCC) (Primary Dx) Start: 08-30-2022 End: 08-30-2022 Patient encounter procedure Jenn Callahan MD Work Phone: [facility] Start: 08-28-2022 Orders Only Florian Whitt MD Work Phone: [facility] Start: 08-24-2022 Coordination of care plan Lee Ann soriano RN Patient Navigator Start: 08-23-2022 Documentation procedure Melvina Callahan MD Work Phone: [facility] Start: 08-20-2022 Orders Only Kelvin King nd, MD Work Phone: [facility] Comment on above: Sleep disorder (Prim harmeet Dx) Start: 07-31-2022 End: 07-31-2022 Clinical Support Rey Burkett RN [facility] Comment on above: Adenocarcinoma of pr ostate (HCC) (Primary Dx); Urinary tract infection with hematuria, site unspecified Adenocarcinoma of pr ostate (HCC) (Primary Dx) Start: 07-25-2022 Orders Only Kelvin King nd, MD Work Phone: [facility] Comment on above: Colon cancer screeni ng Start: 07-23-2022 End: 07-23-2022 ambulatory Jenn Callahan MD Work Phone: [facility] Comment on above: Arrived Start: 07-23-2022 End: 07-23-2022 Patient encounter procedure Jenn Callahan MD Work Phone: [facility] Start: 07-19-2022 End: 07-20-2022 ambulatory KELVIN KOHLER [facility] Start: 06-28-2022 End: 06-28-2022 Clinical Support Lina Prater LPN [facility] Comment on above: Urinary retention wi th incomplete bladder emptying [R33.9 (ICD-10-CM)] (Primary Dx) Start: 06-27-2022 End: 06-27-2022 Clinical Support Lina Prater LPN [facility] Comment on above: Adenocarcinoma of pr ostate (HCC) [C61 (ICD-10-CM)] (Primary Dx) Start: 06-22-2022 Orders Only Maureen Parsons MD Work Phone: [facility] Comment on above: Adenocarcinoma of pr ostate (HCC) (Primary Dx) Start: 06-21-2022 Orders Only Maureen Parsons MD Work Phone: [facility] Comment on above: Adenocarcinoma of pr ostate (HCC) (Primary Dx) Start: 06-13-2022 Orders Only Kelvin King nd, MD Work Phone: [facility] Comment on above: Rectal or anal pain (Primary Dx) Start: 06-07-2022 End: 06-07-2022 Office outpatient visit 25 minutes Kelvin Kohler MD Work Phone: [facility] Comment on above: Primary hypertension (Primary Dx); Renal insufficiency Start: 06-06-2022 Documentation procedure Rey Alvarez ms RN [facility] Start: 06-06-2022 End: 06-06-2022 Office outpatient visit 25 minutes Florian Whitt MD Work Phone: [facility] Comment on above: Adenocarcinoma of pr ostate (HCC); Elevated PSA; Urinary retention; Stricture of male urethra, unspecified stricture type; Renal insufficiency Start: 04-26-2022 End: 04-26-2022 Clinical Support Lina Prater LPN [facility] Start: 04-25-2022 End: 04-25-2022 Office outpatient visit 25 minutes Florian Whitt MD Work Phone: [facility] Comment on above: Adenocarcinoma of pr ostate (HCC); Benign prostatic hyperplasia with urinary retention; Stricture of male urethra, unspecified stricture type; Renal insufficiency Start: 04-20-2022 End: 04-23-2022 Evaluation and management of inpatient KELVIN KOHLER [facility] Start: 04-20-2022 End: 04-23-2022 Evaluation and management of inpatient Florian Whitt MD Work Phone: [facility] Surgical Unit 2 Start: 04-19-2022 Preprocedural examin ation done Florian Whitt MD Work Phone: [facility] Start: 01-14-2022 Orders Only Kelvin King nd, MD Work Phone: [facility] Comment on above: Elevated PSA (Primar y Dx) Start: 01-12-2022 Orders Only Kelvin King nd, MD Work Phone: [facility] Comment on above: Elevated PSA (Primar y Dx) Start: 12-13-2021 Orders Only Kelvin King nd, MD Work Phone: [facility] Comment on above: Screening for prosta te cancer (Primary Dx) Start: 07-31-2021 End: 07-31-2021 Office outpatient new 45 minutes Sandra Cardozo CNP Work Phone: [facility] Comment on above: Lateral epicondyliti s of right elbow (Primary Dx) Start: 08-18-2020 End: 08-18-2020 Orders Only Thao Rivas Jocelynn Work Phone: [facility] Start: 03-05-2019 End: 03-05-2019 Periodic preventive med est patient 40-64yrs Kelvin Kohler Work Phone: [facility] Comment on above: Preventive measure ( Primary Dx); Foot pain, bilateral; Clubbing of nails; Abnormal breath sounds Start: 09-14-2018 End: 09-14-2018 Patient encounter procedure KELVIN KOHLER [facility] Start: 09-14-2018 End: 09-14-2018 Office outpatient new 30 minutes Dakota Blount Raza Work Phone: [facility] [place] Comment on above: Tendinitis of thumb (Primary Dx) Procedures Date Procedure Procedure Detail Performing Clinician Start: 12-23-2024 Antibody screen JE LIRA Comment on above: Performed By: #### L [id number] ####Sales Promotion Manager: MICKIE ASHER ([phone])[facility] [place] [address] Start: 2024 Antibody screen JE STENTZ Comment on above: Performed By: #### L [id number] ####Sales Promotion Manager: MICKIE ASHER ([phone])[facility] ([facility] [place] [address] Start: 12-16-2024 Antibody screen JE STENTZ Comment on above: Performed By: #### L [id number] ####Sales Promotion Manager: MICKIE ASHER ([phone])[facility] ([facility] [place] [address] Start: 12-12-2024 Antibody screen JE STENTZ Comment on above: Performed By: #### L [id number] ####Sales Promotion Manager: MICKIE ASHER ([phone])[facility] ([facility] [place] [address] Start: 12-08-2024 Antibody screen JE LIRA Comment on above: Performed By: #### L [id number] ####Sales Promotion Manager: MICKIE ASHER ([phone])[facility] ([facility] [place] [address] Start: 12-06-2024 Blood count complete automated Ryne Marlier PA-C Work Phone: Start: 12-04-2024 Blood count complete automated Nicholas Driver DO Work Phone: Start: 12-03-2024 Ct lumbar spine w/o contrast material Catherine Victoria MANAGER INVENTORY MANAGEMENT - REJECTOR Work Phone: Start: 12-03-2024 Basic metabolic pane l calcium total Iris A Javersak PA-C Work Phone: Start: 12-02-2024 FL GUIDANCE OR USE O NLY - NON-RESULTABLE Charly Kilgore MD Work Phone: Start: 12-02-2024 End: 12-02-2024 MT RAMOS FACETEC/FORAMOT DRG ARTHRD LUMBAR 1 VRT SGM Charly Kilgore MD Work Phone: Start: 11-25-2024 Ecg routine ecg w/le ast 12 lds trcg only w/o i&r Monicajacques Mg MANAGER INVENTORY MANAGEMENT-REJECTOR Work Phone: Start: 10-29-2024 Follow-up visit JE LIRA Start: 05-05-2024 End: 05-05-2024 PULSE OXIMETRY, CONTINUOUS Eliazar luis DO Work Phone: Start: 05-05-2024 PULSE OXIMETRY, SPOT Anita Reeves MD Work Phone: Start: 07-25-2023 PROSTATE SPECIFIC ANTIGEN KELVIN KOHLER Start: 05-21-2023 Urnls dip stick/tabl et rgnt auto w/o microscopy Florian Whitt MD Work Phone: Start: 05-01-2023 MEASURE POST VOID RESIDUAL Florian Whitt MD Work Phone: Start: 11-01-2022 SCAN OTHER ORDERS Florian Whitt MD Work Phone: Start: 10-25-2022 SCAN OTHER ORDERS Florian Whitt MD Work Phone: Start: 10-24-2022 Culture bacterial qu anttative colony count urine Florian Whitt MD Work Phone: Start: 10-24-2022 CYSTOSCOPY Florian Whitt MD Work Phone: Start: 09-27-2022 RADIATION THERAPY - UNVERIFIED DATA IMPORTED FROM [facility] Treatment Results [facility] Start: 09-06-2022 RADIATION THERAPY - UNVERIFIED DATA IMPORTED FROM [facility] Treatment Results [facility] Start: 07-31-2022 Urnls dip stick/tabl et rgnt auto w/o microscopy Florian Whitt MD Work Phone: Start: 06-07-2022 Adult depression scr eening assessment Kelvin Kohler MD Work Phone: Start: 04-23-[address] raj CARIAS-C Work Phone: Start: 04-22-2022 Basic metabolic pane l calcium total Tameem Myrna Salas MD Work Phone: Start: 04-22-2022 Echo tthrc r-t 2d w/ wom-mode compl spec&colr d Aaron Willett MD Work Phone: Start: 04-22-[address] raj WAITEC Work Phone: Start: 04-22-2022 Electrocardiogram Florian Whitt MD Work Phone: Start: 04-21-2022 Ecg routine ecg w/le ast 12 lds trcg only w/o i&r Arabella Cha PA-C Work Phone: Start: 04-21-2022 Us retroperitoneal r eal time w/image limited Jenn Thompson DO Work Phone: Start: 04-21-2022 Comprehensive metabolic panel Jenn Thomspon DO Work Phone: Start: 04-21-2022 Creatinine other source Jenn Thompson DO Work Phone: Start: 04-21-2022 Urnls dip stick/tabl et reagent auto microscopy Jenn Thompson DO Work Phone: Start: 04-21-2022 Glucose measurement Danielle Whitt MD Work Phone: Start: 04-21-2022 Assay of troponin quantitative Aaron Wlilett MD Work Phone: Start: 04-21-2022 Glucose measurement Danielle Whitt MD Work Phone: Start: 04-21-2022 Influenza virus A an d B RNA and SARS-CoV-2 (COVID-19) N gene panel - Respiratory specimen by TABITHA with probe detection Aaron Willett MD Work Phone: Start: 04-21-2022 Electrocardiogram Florian Whitt MD Work Phone: Start: 04-20-2022 End: 04-20-2022 Basic metabolic panel calcium total Aaron Willett MD Work Phone: Start: 04-20-2022 Radiologic exam ches t single view Aaron Willett MD Work Phone: Start: 04-20-2022 Level iv surg pathol ogy gross&microscopic exam Florian Whitt MD Work Phone: Start: 04-20-2022 End: 04-20-2022 CYSTOSCOPY WITH URETHERAL DILATION Florian Whitt MD Work Phone: Start: 04-20-2022 End: 04-20-2022 NEEDLE BIOPSY PROSTATE Florian Whitt MD Work Phone: Start: 07-31-2021 Arthrocentesis aspir &/inj interm jt/burs w/o Sandra Ramirez Juliane CAZARES Work Phone: Start: 03-05-2019 Hemoglobin A1c/Hemoglobin.total in Blood Kelvin Kohler Work Phone: Start: 03-05-2019 Adult depression scr eening assessment Kelvin Kohler Plan of Treatment Date Care Activity Detail Author Start: 12-18-2034 RSV High Risk: (Elde rly (60+) or Population) (1 - 1-dose 75+ series) RSV High Risk: (Elderly (60+) or Population) (1 - 1-dose 75+ series) [facility] Start: 12-18-2034 RSV Immunization for Adults (1 - 1-dose 75+ series) RSV Immunization for Adults (1 - 1-dose 75+ series) [facility] Start: 11-26-2027 Diabetes mellitus screening Diabetes Screening [facility] Start: 03-15-2027 Screening for malign ant neoplasm of colon [facility] Start: 11-25-2025 Diabetes mellitus screening Diabetes Screening [facility] Start: 11-25-2025 Hemoglobin A1c measurement Diabetes: Hemoglobin A1C [facility] Start: 08-15-2025 End: 08-27-2025 Prostate specific Ag [Mass/volume] in Serum or Plasma Prostate Specific Antigen Lab Routine Malignant neoplasm of prostate (Multi) Expected: 08/15/2025 (Approximate), Expires: 08/27/2025 [facility] Service Area Work Phone: Comment on above: Expected: 08/15/2025 (Approximate), Expires: 08/27/2025 Start: 04-20-2025 Diabetes mellitus screening Diabetes Screening [facility] Start: 04-12-2025 Prostate specific antigen measurement PSA Level [facility] Start: 04-01-2025 End: 04-01-2025 ambulatory 04/01/2025 2:45 PM EDT Radiation Oncology [facility] [address] [place] [phone] Jenn Callahan MD [address] [place] [address] Discharge Disposition: Home [facility] Start: 03-12-2025 End: 03-12-2025 Patient encounter procedure 03/12/2025 2:00 PM EDT Office Visit [facility] [address] [place] [id number] Je Lira PA-C [address] [facility], [address] [place] [address] [facility] Start: 02-15-2025 Influenza vaccination Influenz a Vaccine (Season Ended) [facility] Start: 12-18-2024 Abdominal aortic aneurysm screening Abdominal Aortic Aneurysm (AAA) Screening [facility] Start: 12-15-2024 End: 12-15-2024 Patient encounter procedure 12/15/2024 2:45 PM EDT Office Visit [facility] [address] [phone] Charly Kilgore MD [address] [place] [phone] [facility] Start: 12-02-2024 End: 12-02-2024 Admission to same day surgery center 12/02/2024 10:30 AM EDT - 12/02/2024 1:30 PM EDT Surgery [facility] OR [address] [place] [address] Charly Kilgore MD [address] [place] [phone] POSTERIOR LUMBAR 5 THROUGH SACRAL 1 DECOMPRESSION, FUSION, PEDICLE SCREWS, POSSIBLE CAGE INSERTION [60869 (CPT )] [facility] Comment on above: POSTERIOR LUMBAR 5 T HROUGH SACRAL 1 DECOMPRESSION, FUSION, PEDICLE SCREWS, POSSIBLE CAGE INSERTION [50590 (CPT )] Start: 12-02-2024 End: 12-02-2024 MINIMALLY INVASIVE, DECOMPRESSION, SPINE, POSTERIOR APPROACH, WITH FUSION MINIMALLY INVASIVE, DECOMPRESSION, SPINE, POSTERIOR APPROACH, WITH FUSION Spondylolysis, lumbar region 12/02/2024 10:30 AM EDT [facility] Operating Room Start: 12-02-2024 Subsequent hospital visit by physician 12/02/2024 10:30 AM EDT Hospital Encounter [facility] [address] [place] [address] Charly Kilgore MD [address] [place] [address] [facility] Start: 11-25-2024 End: 11-25-2025 CBC W Auto Differential panel - Blood CBC and Auto Differential Lab Routine Pars defect of lumbar spine Expected: 11/25/2024 (Approximate), Expires: 11/25/2025 [facility] Service Area Work Phone: Comment on above: Expected: 11/25/2024 (Approximate), Expires: 11/25/2025 Start: 11-25-2024 End: 11-25-2025 Comprehensive metabolic 2000 panel - Serum or Plasma Comprehensive metabolic panel Lab Routine Pars defect of lumbar spine Expected: 11/25/2024 (Approximate), Expires: 11/25/2025 [facility] Work Phone: Comment on above: Expected: 11/25/2024 (Approximate), Expires: 11/25/2025 Start: 11-25-2024 End: 11-25-2025 ECG 12 lead (Ancillary Performed) ECG 12 lead (Ancillary Performed) ECG Routine Pars defect of lumbar spine Expected: 11/25/2024 (Approximate), Expires: 11/25/2025 [facility] Work Phone: Comment on above: Expected: 11/25/2024 (Approximate), Expires: 11/25/2025 Start: 11-25-2024 End: 11-25-2025 Hemoglobin A1c/Hemoglobin.total in Blood Hemoglobin A1c Lab Routine Pars defect of lumbar spine Expected: 11/25/2024 (Approximate), Expires: 11/25/2025 [facility] Work Phone: Comment on above: Expected: 11/25/2024 (Approximate), Expires: 11/25/2025 Start: 09-16-2024 End: 09-16-2024 Patient encounter procedure 09/16/2024 2:15 PM EDT Office Visit [place] [id number] [facility] [address] [place] [address] Price Reeves MD [address] [place], [place] [phone] [facility] Start: 09-11-2024 End: 09-11-2024 Patient encounter procedure 09/11/2024 2:15 PM EDT Office Visit [facility] [address] [place] [address] Je Lira PA-C [address] [facility], [address] [place] [phone] [facility] Start: 09-11-2024 End: 09-11-2025 CBC panel - Blood by Automated count CBC Lab Routine Primary hypertension Expected: 09/11/2024 (Approximate), Expires: 09/11/2025 [facility] Work Phone: Comment on above: Expected: 09/11/2024 (Approximate), Expires: 09/11/2025 Start: 09-11-2024 End: 09-11-2025 Colonoscopy study Colonoscopy Diagnostic Endoscopy Routine Positive colorectal cancer screening using Cologuard test Expected: 09/11/2024, Expires: 09/11/2025 [facility] Work Phone: Comment on above: Expected: 09/11/2024 , Expires: 09/11/2025 Start: 09-11-2024 End: 09-11-2025 Comprehensive metabolic 2000 panel - Serum or Plasma Comprehensive Metabolic Panel Lab Routine Primary hypertension Expected: 09/11/2024 (Approximate), Expires: 09/11/2025 [facility] Work Phone: Comment on above: Expected: 09/11/2024 (Approximate), Expires: 09/11/2025 Start: 09-11-2024 End: 09-11-2025 Lipid 1996 panel - Serum or Plasma Lipid Panel Lab Routine Screening for lipid disorders Expected: 09/11/2024 (Approximate), Expires: 09/11/2025 [facility] Work Phone: Comment on above: Expected: 09/11/2024 (Approximate), Expires: 09/11/2025 Start: 08-27-2024 End: 08-27-2024 Telemedicine consultation with patient 08/27/2024 11:30 AM EDT Telemedicine [facility] [address] [place] [address] Price Reeves MD [address] [place] [address] [facility] Start: 08-26-2024 End: 08-26-2024 Patient encounter procedure 08/26/2024 2:40 PM EDT Office Visit [facility] [address] [place] [address] Keny Reddy DO [address] [facility] [place] [address] [facility] Start: 07-22-2024 End: 07-22-2025 Prostate specific Ag [Mass/volume] in Serum or Plasma Prostate Specific Antigen Lab Routine Malignant neoplasm of prostate (Multi) Expected: 07/22/2024 (Approximate), Expires: 07/22/2025 [facility] Service Area Work Phone: Comment on above: Expected: 07/22/2024 (Approximate), Expires: 07/22/2025 Start: 05-05-2024 End: 05-05-2024 Trurl electrosurg rescj prostate bleed complete Resection 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, unspecified stricture type Urinary retention 05/05/2024 11:15 AM EST Virtual [facility] OR Start: 05-05-2024 End: 05-05-2024 Admission to same day surgery center 05/05/2024 7:30 AM EST - 05/05/2024 8:00 AM EST Surgery [facility] OR [address] [place] [phone] Price Reeves MD [address] [place] [address] Resection Transurethral Prostate [05855 (CPT )] [facility] OR Comment on above: Resection Transureth ral Prostate [34626 (CPT )] Start: 05-05-2024 End: 05-05-2024 Trurl electrosurg rescj prostate bleed complete Resection 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, unspecified stricture type Urinary retention 05/05/2024 7:30 AM EST Virtual [facility] OR Start: 05-05-2024 Subsequent hospital visit by physician 05/05/2024 6:00 AM EST Hospital Encounter [facility] OR [address] [place] [phone] Price Reeves MD [facility] [place] [address] [facility] OR Start: 04-11-2024 Prostate specific antigen measurement PSA Level [facility] Start: 03-11-2024 End: 03-11-2024 Patient encounter procedure 03/11/2024 2:45 PM EDT Office Visit [place] [id number] [phone] Price Reeves MD [address] [place] [address] [facility] Start: 03-06-2024 End: 03-06-2024 ambulatory 03/06/2024 2:30 PM EDT Radiation Oncology [facility] [address] [place] [phone] Jenn Callahan MD [facility] [place] [address] [place] [address] Discharge Disposition: Home [facility] Start: 03-04-2024 End: 03-04-2024 Patient encounter procedure 03/04/2024 2:00 PM EDT Procedure Visit [facility] [address] [facility] [address] [place] [address] [facility] Start: 02-27-2024 End: 02-26-2025 CBC W Auto Differential panel - Blood CBC and Auto Differential Lab Routine Primary hypertension Expected: 02/27/2024 (Approximate), Expires: 02/26/2025 [facility] Work Phone: Comment on above: Expected: 02/27/2024 (Approximate), Expires: 02/26/2025 Start: 02-27-2024 End: 02-26-2025 Cologuard colon cancer screening Cologuard colon cancer screening Lab Routine Screening for colon cancer Expected: 02/27/2024 (Approximate), Expires: 02/26/2025 [facility] Service Area Work Phone: Comment on above: Expected: 02/27/2024 (Approximate), Expires: 02/26/2025 Start: 02-27-2024 End: 02-26-2025 Comprehensive metabolic 2000 panel - Serum or Plasma Comprehensive Metabolic Panel Lab Routine Primary hypertension Expected: 02/27/2024 (Approximate), Expires: 02/26/2025 [facility] Work Phone: Comment on above: Expected: 02/27/2024 (Approximate), Expires: 02/26/2025 Start: 02-27-2024 End: 02-26-2025 Lipid 1996 panel - Serum or Plasma Lipid Panel Lab Routine Screening for lipid disorders Expected: 02/27/2024 (Approximate), Expires: 02/26/2025 [facility] Work Phone: Comment on above: Expected: 02/27/2024 (Approximate), Expires: 02/26/2025 Start: 02-16-2024 COVID-19 Vaccine () COVID-19 Vaccine () [facility] Start: 02-16-2024 COVID-19 Vaccine ( season) COVID-19 Vaccine ( season) [facility] Start: 02-16-2024 Influenza vaccination [facility] Start: 12-31-2023 Prostate specific antigen measurement PSA Level [facility] Start: 11-28-2023 End: 11-28-2023 Patient encounter procedure 11/28/2023 2:00 PM EDT Procedure Visit [facility] [address] [place] [address] [facility] Start: 10-01-2023 End: 10-01-2023 Patient encounter procedure 10/01/2023 1:30 PM EDT Office Visit [facility] [address] [place] [address] Kelvin Kohler MD [address] [place] [address] [facility] Start: 09-02-2023 End: 09-02-2023 Patient encounter procedure 09/02/2023 2:00 PM EDT Office Visit [facility] [address] [place] [address] Kelvin Kohler MD [address] [place] [address] [facility] Start: 08-22-2023 End: 08-22-2023 Patient encounter procedure 08/22/2023 2:45 PM EST Office Visit [facility] [address] [place] [address] Price Reeves MD [address] [place] [address] [facility] Start: 08-08-2023 End: 08-08-2023 ambulatory 08/08/2023 11:00 AM EST Radiation Oncology [facility] [address] [place] [address] Jenn Callahan MD [address] [place] [address] Discharge Disposition: Home [facility] Start: 08-07-2023 End: 08-07-2023 Patient encounter procedure 08/07/2023 10:30 AM EST Office Visit [facility] [address] [place] [phone] Florian Whitt MD [address] [place] [address] [facility] Start: 07-25-2023 End: 07-25-2023 Patient encounter procedure 07/25/2023 2:15 PM EST Procedure Visit [facility] [address] [place] [address] [facility] Start: 07-24-2023 End: 07-24-2024 Prostate specific Ag [Mass/volume] in Serum or Plasma Prostate Specific Antigen Lab Routine Malignant neoplasm of prostate (CMS/HCC) Expected: 07/24/2023 (Approximate), Expires: 07/24/2024 [facility] Service Area Work Phone: Comment on above: Expected: 07/24/2023 (Approximate), Expires: 07/24/2024 Start: 07-16-2023 End: 04-15-2024 Prostate specific Ag [Mass/volume] in Serum or Plasma PSA Monitor Lab Routine Adenocarcinoma of prostate (HCC) Expected: 07/16/2023, Expires: 04/15/2024 [facility] Work Phone: Comment on above: Expected: 07/16/2023 , Expires: 04/15/2024 Start: 06-07-2023 Depression screening using PHQ-9 (Patient Health Questionnaire 9) score [facility] Start: 05-01-2023 End: 05-01-2023 Patient encounter procedure 05/01/2023 11:00 AM EST Office Visit [facility] [address] [place] [address] Florian Whitt MD [address] [facility] [address] [place] [address] [facility] Start: 04-20-2023 Diabetes mellitus screening Diabetes Screening [facility] Start: 04-15-2023 End: 04-15-2023 ambulatory 04/15/2023 11:00 AM EDT Radiation Oncology [facility] [address] [place] [address] Jenn Callahan MD [facility] [place] [address] Discharge Disposition: Home [facility] Start: 03-13-2023 End: 03-13-2023 Patient encounter procedure 03/13/2023 1:00 PM EDT Office Visit [facility] [address] [place] [address] Kelvin Kohler MD [address] [place] [address] [facility] Start: 02-25-2023 End: 02-25-2023 Patient encounter procedure 02/25/2023 1:00 PM EDT Office Visit [facility] [address] [place] [address] Kelvin Kohler MD [address] [place] [address] [facility] Start: 02-15-2023 COVID-19 Vaccine () COVID-19 Vaccine ( season) [facility] Start: 02-15-2023 Influenza vaccination [facility] Start: 01-30-2023 End: 01-30-2023 Clinical Support [facility] Phys[facility] Start: 01-07-2023 End: 01-07-2023 ambulatory 01/07/2023 11:00 AM EDT Radiation Oncology [facility] [address] [place] [phone] Jenn Callahan MD [address] [place] [address] Discharge Disposition: Home [facility] Start: 10-25-2022 End: 10-25-2022 Patient encounter procedure [facility] Start: 10-24-2022 End: 10-24-2022 Patient encounter procedure 10/24/2022 8:45 AM EDT Office Visit [facility] [address] [place] [address] Florian Whitt MD [address] [address] [facility] Start: 10-05-2022 End: 10-05-2022 ambulatory [facility] Start: 10-04-2022 End: 10-04-2022 ambulatory [facility] Start: 10-03-2022 End: 10-03-2022 ambulatory [facility] Start: 10-02-2022 End: 10-02-2022 [facility] Start: 10-01-2022 End: 10-01-2022 ambulatory [facility] Start: 09-28-2022 End: 09-28-2022 ambulatory [facility] Start: 09-27-2022 End: 09-27-2022 ambulatory [facility] Start: 09-26-2022 End: 09-26-2022 ambulatory [facility] Start: 09-25-2022 End: 09-25-2022 ambulatory [facility] Start: 09-24-2022 End: 09-24-2022 ambulatory [facility] Start: 09-21-2022 End: 09-21-2022 ambulatory [facility] Start: 09-20-2022 End: 09-20-2022 ambulatory [facility] Start: 09-19-2022 End: 09-19-2022 ambulatory [facility] Start: 09-18-2022 End: 09-18-2022 ambulatory [facility] Start: 09-17-2022 End: 09-17-2022 ambulatory [facility] Start: 09-14-2022 End: 09-14-2022 ambulatory [facility] Start: 09-13-2022 End: 09-13-2022 ambulatory [facility] Start: 09-12-2022 End: 09-12-2022 ambulatory 09/12/2022 Radiation Oncology Radiation Oncology [facility] Start: 09-11-2022 End: 09-11-2022 ambulatory 09/11/2022 Radiation Oncology Radiation Oncology [facility] Start: 09-10-2022 End: 09-10-2022 ambulatory 09/10/2022 Radiation Oncology Radiation Oncology [facility] Start: 09-07-2022 End: 09-07-2022 ambulatory 09/07/2022 Radiation Oncology Radiation Oncology [facility] Start: 09-06-2022 End: 09-06-2022 ambulatory [facility] Start: 09-05-2022 End: 09-05-2022 ambulatory 09/05/2022 Radiation Oncology Radiation Oncology [facility] Start: 09-05-2022 End: 09-05-2022 Patient encounter procedure 09/05/2022 Office Visit Primary Care Kelvin Kohler MD [address] [place] [phone] [facility] Start: 09-04-2022 End: 09-04-2022 ambulatory 09/04/2022 Radiation Oncology Radiation Oncology [facility] Start: 09-03-2022 End: 09-03-2022 ambulatory 09/03/2022 Radiation Oncology Radiation Oncology [facility] Start: 08-31-2022 End: 08-31-2022 ambulatory 08/31/2022 Radiation Oncology Radiation Oncology [facility] Start: 08-28-2022 End: 08-28-2022 ambulatory 08/28/2022 Radiation Oncology Radiation Oncology Terrence Hernandez MD [address] [place] [address] Jenn Callahan MD [address] [place] [address] [facility] Start: 08-23-2022 End: 08-23-2022 ambulatory 08/23/2022 Radiation Oncology Radiation Oncology Jenn Callahan MD [address] [place] [address] [facility] Start: 08-20-2022 End: 08-20-2022 ambulatory 08/20/2022 Radiation Oncology Radiation Oncology Maureen Parsons MD [address] [place] [address] [facility] Start: 08-09-2022 End: 08-09-2022 ambulatory 08/09/2022 Radiation Oncology Radiation Oncology Jenn Callahan MD [address] [place] [address] [facility] Start: 07-20-2022 End: 07-20-2022 ambulatory 07/20/2022 Radiation Oncology Radiation Oncology Maureen Parsons MD [address] [place] [address] [facility] Start: 07-19-2022 End: 07-19-2022 Patient encounter procedure 07/19/2022 Appointment Radiology Maureen Parsons MD [address] [place] [address] [facility] MRI Start: 07-06-2022 End: 06-22-2023 PET Prostate Imaging With CT Skull To Thigh PET Prostate Imaging With CT Skull To Thigh Imaging Routine Adenocarcinoma of prostate (HCC) Expected: 07/06/2022, Expires: 06/22/2023 [facility] Work Phone: Comment on above: Expected: 07/06/2022 , Expires: 06/22/2023 Start: 07-05-2022 End: 06-21-2023 MR Prostate With And Without Contrast MR Prostate With And Without Contrast Imaging Routine Adenocarcinoma of prostate (HCC) Expected: 07/05/2022, Expires: 06/21/2023 [facility] Comment on above: Expected: 07/05/2022 , Expires: 06/21/2023 Start: 07-05-2022 End: 06-21-2023 PET Prostate Imaging With CT Skull To Thigh PET Prostate Imaging With CT Skull To Thigh Imaging Routine Adenocarcinoma of prostate (HCC) Expected: 07/05/2022, Expires: 06/21/2023 [facility] Work Phone: Comment on above: Expected: 07/05/2022 , Expires: 06/21/2023 Start: 06-27-2022 End: 06-27-2022 Clinical Support 06/27/2022 Clinical Support Urology [facility] Start: 06-20-2022 End: 06-20-2022 ambulatory [facility] Start: 06-07-2022 End: 06-07-2022 Patient encounter procedure 06/07/2022 Office Visit Primary Care Grund, Kelvin Cm MD [address] [place] [address] [facility] Start: 06-01-2022 End: 06-01-2022 Patient encounter procedure 06/01/2022 Appointment Radiology Whitt, Florian Nova MD [address] [place] [address] [facility] Start: 05-09-2022 End: 04-25-2023 CT of abdomen and pelvis CT Abdomen Pelvis With And Without Contrast Imaging Routine Adenocarcinoma of prostate (HCC) Expected: 05/09/2022, Expires: 04/25/2023 [facility] Comment on above: Expected: 05/09/2022 , Expires: 04/25/2023 Start: 05-09-2022 End: 04-25-2023 Radionuclide whole body bone study NM Bone Whole Body Imaging Routine Adenocarcinoma of prostate (HCC) Expected: 05/09/2022, Expires: 04/25/2023 [facility] Comment on above: Expected: 05/09/2022 , Expires: 04/25/2023 Start: 04-11-2022 End: 04-11-2022 Patient encounter procedure 04/11/2022 Office Visit Urology Kelvin Kohler MD [address] [place] [address] Florian Whitt MD [address] [place] [address] [facility] Start: 02-15-2022 Influenza vaccination [facility] Start: 02-15-2021 Influenza vaccination Sequenti al Influenza Vaccine (#1) [facility] Start: 03-05-2020 Depression screening using PHQ-9 (Patient Health Questionnaire 9) score Depression Screening (PHQ-2/9) [facility] Start: 03-05-2020 History and physical examination, annual for health maintenance Wellness Visit [facility] Start: 02-16-2020 Influenza vaccinatio n given Sequential Influenza Vaccine (#1) [facility] Start: 2019 RSV patient s and/or patients aged 60+ years (1 - 1-dose 60+ series) RSV patients and/or patients aged 60+ years (1 - 1-dose 60+ series) [facility] Start: 05-04-2019 End: 05-04-2019 Office Visit 05/04/2019 Office Visit Primary Care Kelvin Kohler MD [address] [place] [address] [phone] [facility] Start: 03-12-2019 End: 03-05-2020 Standard chest X-ray XR Chest AP/PA and LAT Imaging Routine Abnormal breath sounds Expected: 03/12/2019 (Approximate), Expires: 03/05/2020 [facility] Comment on above: Expected: 03/12/2019 (Approximate), Expires: 03/05/2020 Start: 03-06-2019 End: 09-03-2019 Lipid 1996 panel Lipid Panel Lab Routine Preventive measure Expected: 03/06/2019 (Approximate), Expires: 09/03/2019 [facility] Comment on above: Expected: 03/06/2019 (Approximate), Expires: 09/03/2019 Start: 02-15-2019 Influenza vaccinatio n given SEQUENTIAL INFLUENZA VACCINE (#1) [facility] Start: 02-15-2018 Influenza vaccinatio n given SEQUENTIAL INFLUENZA VACCINE (#1) [facility] Start: 12-18-2009 Administration of he rpes zoster vaccine Zoster Vaccines (1 of 2) [facility] Start: 12-18-2009 Screening for malign ant neoplasm of colon [facility] Start: 12-18-2009 Screening for malign ant neoplasm of lung Lung Cancer Screening [facility] Start: 12-18-2009 Zoster Vaccines (1 of 2) Zoste r Vaccines (1 of 2) [facility] Start: 12-18-1981 DTaP/Tdap/Td Vaccine s (1 - Tdap) DTaP/Tdap/Td Vaccines (1 - Tdap) [facility] Start: 12-18-1978 Administration of he rpes zoster vaccine Zoster Vaccines (1 of 2) [facility] Start: 12-18-1978 DTaP/Tdap/Td Vaccine s (1 - Tdap) DTaP/Tdap/Td Vaccines (1 - Tdap) [facility] Start: 12-18-1978 Pneumococcal vaccination Pneum ococcal Vaccine (1 of 2 - PCV) [facility] Start: 12-18-1978 Pneumococcal Vaccine : 50+ Years (1 of 2 - PCV) Pneumococcal Vaccine: 50+ Years (1 of 2 - PCV) [facility] Start: 12-18-1977 Diabetes mellitus screening Diabetes Screening [facility] Start: 12-18-1977 Hepatitis C antibody , confirmatory test Hepatitis C Screening [facility] Start: 12-18-1977 Hepatitis C screening Hepatitis C Sc reening [facility] Start: 1975 COVID-19 Vaccine (1 of 2) COVID-19 Vaccine (1 of 2) [facility] Start: 12-18-1974 HIV screening HIV Screening [facility] Start: 1971 Adolescent depressio n screening assessment [facility] Start: 12-18-1965 Pneumococcal Vaccine : 65+ Years (1 of 2 - PCV) Pneumococcal Vaccine: 65+ Years (1 of 2 - PCV) [facility] Start: 12-18-1965 Pneumococcal Vaccine : Ped or At-Risk (1 - PCV) Pneumococcal Vaccine: Ped or At-Risk (1 - PCV) [facility] Start: 12-18-1965 Pneumococcal Vaccine : Ped or At-Risk (1 of 2 - PCV) Pneumococcal Vaccine: Ped or At-Risk (1 of 2 - PCV) [facility] Start: 12-18-1965 Pneumococcal Vaccine : Ped or At-Risk (1 of 2 - PPSV23) Pneumococcal Vaccine: Ped or At-Risk (1 of 2 - PPSV23) [facility] Start: 12-18-1965 Pneumococcal Vaccine : Pediatrics (0 to 5 Years) and At-Risk Patients (6 to 64 Years) (1 - PCV) Pneumococcal Vaccine: Pediatrics (0 to 5 Years) and At-Risk Patients (6 to 64 Years) (1 - PCV) [facility] Start: 12-18-1965 Pneumococcal Vaccine : Pediatrics (0 to 5 Years) and At-Risk Patients (6 to 64 Years) (1 of 2 - PCV) Pneumococcal Vaccine: Pediatrics (0 to 5 Years) and At-Risk Patients (6 to 64 Years) (1 of 2 - PCV) [facility] Start: 12-18-1964 COVID-19 Vaccine (#1) COVID-19 Vacci ne (#1) [facility] Start: 12-18-1964 COVID-19 Vaccine (1) COVID-19 Vaccin e (1) [facility] Start: 12-18-1962 History and physical examination, annual for health maintenance Wellness Visit [facility] Start: 12-18-1962 Medicare Wellness Visit Medicare Wel lness Visit [facility] Start: 12-18-1960 MMR Vaccines (1 of 1 - Standard series) MMR Vaccines (1 of 1 - Standard series) [facility] Start: 06-20-1960 COVID-19 Vaccine (#1) COVID-19 Vacci ne (#1) [facility] Start: 06-20-1960 Examination of skin Derm Melan jonathan Skin Check [facility] Start: 1959 Annual wellness visit Medicare Initial Physical (IPPE) [facility] Start: 1959 Depression screening using PHQ-9 (Patient Health Questionnaire 9) score DEPRESSION SCREENING (PHQ9) [facility] Start: 1959 Hepatitis C antibody , confirmatory test HEPATITIS C SCREENING [facility] Start: 1959 HIV screening HIV Screening [facility] Start: 1959 Lipid panel Lipid Panel [facility] Start: 1959 Prostate specific antigen measurement PSA Level [facility] Start: 1959 Screening for malign ant neoplasm of colon [facility] Start: 1959 Screening for malign ant neoplasm of lung Low-dose CT Lung Cancer Screen [facility] Start: 1959 [facility] Start: 1959 [facility] End: 07-31-2023 Bacteria identified in Unspecified specimen by Aerobe culture Urine Aerobic Culture Microbiology Routine Urinary tract infection with hematuria, site unspecified 1 Occurrences starting 07/31/2022 until 07/31/2023 [facility] Work Phone: Comment on above: 1 Occurrences starti ng 07/31/2022 until 07/31/2023 End: 10-12-2023 Bacteria identified in Unspecified specimen by Aerobe culture Urine Aerobic Culture Microbiology Routine Urinary tract infection without hematuria, site unspecified [N39.0 (ICD-10-CM)] 1 Occurrences starting 10/11/2022 until 10/12/2023 [facility] Work Phone: Comment on above: 1 Occurrences starti ng 10/11/2022 until 10/12/2023 End: 10-25-2023 Bacteria identified in Unspecified specimen by Aerobe culture Urine Aerobic Culture Microbiology Routine Adenocarcinoma of prostate (HCC) Urinary tract infection without hematuria, site unspecified 1 Occurrences starting 10/24/2022 until 10/25/2023 [facility] Work Phone: Comment on above: 1 Occurrences starti ng 10/24/2022 until 10/25/2023 End: 05-20-2024 Bacteria identified in Unspecified specimen by Aerobe culture Urine Aerobic Culture Microbiology Routine Urinary tract infection with hematuria, site unspecified 1 Occurrences starting 05/20/2023 until 05/20/2024 [facility] Work Phone: Comment on above: 1 Occurrences starti ng 05/20/2023 until 05/20/2024 Bacteria identified in Unspecified specimen by Aerobe culture Urine Aerobic Culture Microbiology Routine Urinary tract infection with hematuria, site unspecified 05/20/2023 11:08 AM EST [facility] End: 04-25-2023 Basic metabolic 2000 panel - Serum or Plasma Basic Metabolic Panel Lab Routine Adenocarcinoma of prostate (HCC) 1 Occurrences starting 04/25/2022 until 04/25/2023 [facility] Work Phone: Comment on above: 1 Occurrences starti ng 04/25/2022 until 04/25/2023 Cologuard Cologuard Lab Ro utine Colon cancer screening Ordered: 07/25/2022 [facility] Work Phone: Comment on above: Ordered: 07/25/2022 End: 03-05-2020 Complete blood count with white cell differential, manual CBC and Differential Lab Routine Preventive measure 1 Occurrences starting 03/05/2019 until 03/05/2020 [facility] Comment on above: 1 Occurrences starti ng 03/05/2019 until 03/05/2020 End: 03-05-2020 Comprehensive metabolic 2000 panel Comprehensive Metabolic Panel Lab Routine Preventive measure 1 Occurrences starting 03/05/2019 until 03/05/2020 [facility] Comment on above: 1 Occurrences starti ng 03/05/2019 until 03/05/2020 End: 06-07-2023 Comprehensive metabolic 2000 panel - Serum or Plasma Comprehensive Metabolic Panel Lab Routine Primary hypertension Renal insufficiency 1 Occurrences starting 06/07/2022 until 06/07/2023 [facility] Work Phone: Comment on above: 1 Occurrences starti ng 06/07/2022 until 06/07/2023 End: 06-07-2023 Lipid 1996 panel - Serum or Plasma Lipid Panel Lab Routine Primary hypertension 1 Occurrences starting 06/07/2022 until 06/07/2023 [facility] Comment on above: 1 Occurrences starti ng 06/07/2022 until 06/07/2023 End: 10-15-2024 MR Lumbar spine WO contrast [facility] Service Area Comment on above: Once for 1 Occurrenc es starting 10/15/2024 until 10/15/2024 PROSTATE MARKER WITH ORGAN AT RISK PROSTATE MARKER WITH ORGAN AT RISK Adenocarcinoma of prostate (HCC) [facility] [place] End: 03-05-2020 Prostate specific Ag [Mass/Vol] PSA Monitor Lab Routine Preventive measure 1 Occurrences starting 03/05/2019 until 03/05/2020 [facility] Comment on above: 1 Occurrences starti ng 03/05/2019 until 03/05/2020 End: 12-13-2022 Prostate specific Ag [Mass/volume] in Serum or Plasma PSA Monitor Lab Routine Screening for prostate cancer 1 Occurrences starting 12/13/2021 until 12/13/2022 [facility] Work Phone: Comment on above: 1 Occurrences starti ng 12/13/2021 until 12/13/2022 End: 04-12-2024 Prostate specific Ag [Mass/volume] in Serum or Plasma PSA Monitor Lab Routine Adenocarcinoma of prostate (HCC) 1 Occurrences starting 04/12/2023 until 04/12/2024 [facility] Work Phone: Comment on above: 1 Occurrences starti ng 04/12/2023 until 04/12/2024 End: 01-14-2023 Prostate specific Ag panel - Serum or Plasma PSA, Total and Free Lab Routine Elevated PSA 1 Occurrences starting 01/14/2022 until 01/14/2023 [facility] Work Phone: Comment on above: 1 Occurrences starti ng 01/14/2022 until 01/14/2023 Surgical pathology study Surgica l Pathology Exam Pathology and Cytology Routine Stricture of male urethra, unspecified stricture type Urinary retention Release Upon Ordering for 1 Occurrences starting 05/05/2024 [facility] Service Area Work Phone: Comment on above: Release Upon Orderin g for 1 Occurrences starting 05/05/2024 Payers Date Payer Category Payer Medicare [id number] 2024 Commercial Managed C are - HMO [id number] .[id number] 5 2023 Managed Care (Private) [employer] [id number] .[id number] 5 2023 Unknown [id number] 2021 Unknown [id number]. 1.13.385 .2.7.3.260097.315 2021 Unknown [id number] 2018 Unknown [id number] 2018 Unknown [facility] - PREFERRED [id number] 2018-Present [id number] 1.2.840.534337.1.13.385 .2.7.3.002901.315 2018 Unknown [id number] 1.2.840.678140.1.13.385 .2.7.3.948846.315 1959 Unknown [id number] 2.16.840.1.724583.3.579 .2.903 1959 Unknown [id number] 2.16.840.1.138676.3.579 .2.900 1959 Unknown [id number] 2.16.840.1.955953.3.579 .2.900 1959 Unknown [id number] 2.16.840.1.896131.3.579 .2.900 1959 Unknown [id number] 2.16.840.1.398329.3.579 .2.903 1959 Unknown [id number] 2.16.840.1.062806.3.579 .2.903 1959 Unknown [id number] 2.16.840.1.724666.3.579 .2.903 1959 Unknown [id number] 2.16.840.1.159515.3.579 .2.903 1959 Unknown [id number] 2.16.840.1.382684.3.579 .2.903 1959 Unknown [id number] 2.16.840.1.201212.3.579 .2.3 1959 Unknown [id number] 2.16.840.1.606789.3.579 .2. 1959 Unknown [id number] 2.16.840.1.374235.3.579 .2. 1959 Unknown [id number] 2.16.840.1.597640.3.579 .2. 1959 Unknown [id number] 2.16.840.1.708109.3.579 .2. 1959 Unknown [id number] 2.16.840.1.600074.3.579 .2. 1959 Unknown [id number] 2.16.840.1.587366.3.579 .2. 1959 Unknown [id number] 2.840.1.706273.3.579 .2. 1959 Unknown [id number] 2.16.840.1.061378.3.579 .2.1244 1959 Unknown [id number] 2.16.840.1.316227.3.579 .2.1244 1959 Unknown [id number] 2.16.840.1.032205.3.579 .2. 1959 Unknown [id number] 2..840.1.701755.3.579 .2. 1959 Unknown [id number] 2.16.840.1.911691.3.579 .2.1242 1959 Unknown [id number] 2.16.840.1.626989.3.579 .2.1242 1959 Unknown [id number] 2.16.840.1.194397.3.579 .2.1242 1959 Unknown [id number] 2.16.840.1.783645.3.579 .2.1243 1959 Unknown [id number] 2.16.840.1.718060.3.579 .2.1244 1959 Unknown [id number] 2.16.840.1.898697.3.579 .2.1244 1959 Unknown [id number] 2.16.840.1.632283.3.579 .2.1244 1959 Unknown [id number] 2.16.840.1.540686.3.579 .2.124 1959 Unknown [id number] 2.16.840.1.712649.3.579 .2.1244 1959 Unknown [id number] 2.16.840.1.553027.3.579 .2.124 1959 Unknown [id number] 2.16.840.1.086491.3.579 .2.124 1959 Unknown [id number] 2.16.840.1.983524.3.579 .2.1244 Social History Date Type Detail Facility Start: 03-05-2019 End: 10-29-2024 Tobacco smoking status FLIS Current every day smoker [facility] Start: 03-05-1990 History of tobacco use Cigarette Smoker [facility] Start: 03-05-2019 End: 12-02-2024 Cigarettes smoked current (pack per day) - Reported [facility] Start: 03-05-2019 End: 10-29-2024 Tobacco use and exposure Never used [facility] Start: 03-05-2019 End: 07-31-2021 Alcohol intake Lifetime non-drinker (finding) [facility] Start: 09-14-2018 End: 06-07-2022 History SDOH Alcohol Frequency 1 [facility] Start: 03-05-2019 End: 06-07-2022 History SDOH Social Connections Phone 2 [facility] Start: 03-05-2019 End: 06-07-2022 History SDOH Financial 5 [facility] Start: 1960 Sex Assigned At Not on file [facility] Start: 04-10-2022 End: 11-25-2024 Exposure to SARS-CoV-2 (event) Not sure [facility] Start: 04-23-2022 End: 12-01-2024 Alcohol intake Ex-drinker (finding) [facility] Start: 03-05-2019 End: 12-02-2024 Social connection and isolation panel [facility] Frequency of Communication with Friends and Family Once a week [facility] (I/We) worried mark anthony er (my/our) food would run out before (I/we) got money to buy more. Never true [facility] In the past 12 month s, was there a time when you were not able to pay the mortgage or rent on time? No [facility] Start: 09-14-2018 Gender identity Identifies as male gender (finding) [facility] Start: 09-14-2018 Sexual orientation Heterosexual (finding) [facility] Start: 1960 Sex Assigned At [facility] Start: 10-19-2024 Sex Male (finding) [facility] Medical Equipment Procedure Code Equipment Code Equipment Origin al Text Equipment Identifier Dates Implant 10ml Hydrogel Spaceoar - Sna [id number], [id number] FDA Start: 08-08-2022 Kit Marker Fiduc ial Sterl - [facility] ()[id number] 21)[id number], [id number] FDA Start: 08-08-2022 Bone Bmp Putty I-Factor 5.0cc - [id number] Start: 12-02-2024 Bone Bmp Putty I-Factor 5.0cc - [id number] Start: 12-02-2024 Medtronic Interb dagoberto Cage, Pl40, Short, 9mm [id number] Start: 12-02-2024 Medtronic Interb dagoberto Cage, Pl40, Short, 7mm [id number] Start: 12-02-2024 Screw Spinal 6.2ggq31bp - [id number] Start: 12-02-2024 Screw Multi-Axia l Std 7.5x40mm - [id number] Start: 12-02-2024 Screw Set Ti Spi nal Break Off - [id number] Start: 12-02-2024 Alex Spnl Cromall oy Bent 5.5x60 - [id number] Start: 12-02-2024 Clinical Notes 07-31-2021 to 12-17-2024 Nadiya Rothmancalvin - 12/07/2024 10:00 AM Fredrick Jansen, MANAGER INVENTORY MANAGEMENT - REJECTOR - 12/07/2024 8:59 AM Portillo Fry, ODD JOB WORKER - 12/06/2024 2:37 PM Massimo Brown PA-C - 12/06/2024 9:30 AM EDTAttachments Note Date & Type Note Facility 12-17-2024 Note [facility] 12-15-2024 Note Referral placed to [facility] via [facility] per TCC request. Await review and response regarding ability to accept. TCC notified. Electronically signed by [facility] 12-13-2024 Note [facility] 12-12-2024 Note Problem: Knowledge D eficit Goal: Patient/family/caregiver demonstrates understanding of disease process, treatment plan, medications, and discharge instructions Outcome: Progressing [facility] 12-11-2024 Note Problem: Knowledge D eficit Goal: Patient/family/caregiver demonstrates understanding of disease process, treatment plan, medications, and discharge instructions Outcome: Progressing [facility] 12-11-2024 Note Referral placed to [facility] via [facility] per TCC request. Await review and response regarding ability to accept. TCC notified. Electronically signed by [facility] 12-11-2024 Note Referral placed to [facility] via [facility] per TCC request. Await review and response regarding ability to accept. TCC notified. Electronically signed by [facility] 12-09-2024 Note Talked to spouse Cat hy about patient's restraints and why they were in them. All questions answered, spouse spent the night. [facility] 12-08-2024 Note Pt taking off pulse ox and attempting to take out arterial line, RN attempted to redirect pt, unsuccessful. Dr. Graham notified via secure chat, see order for BUE soft restraints. Attempt x4 to call pt , Claudia, direct to voicemail. [facility] 12-08-2024 Note [facility] 12-08-2024 Note [facility] 12-08-2024 Note [facility] 12-07-2024 History of Present illness Narrative Images from the original note were not included. OCCUPATIONAL THERAPY [facility] Name/MRN: Ginger Weldon ([id number]) Date: 12/07/2024 OT chart reviewed. Eval attempted at 0858 and 1000 but pt refusing d/t pain. Will re-attempt at a later date. Nadiya Babcock, S/OT Cosigned by Digna Lomas OT at 12/07/2024 11:49 AM EDT Subjective: S/p L4-S1 decompression with L4-S1 fusion. Overall, slowly improving. He continues to have right foot numbness and weakness.. Physical Exam: Alert and oriented x 3 Motor strength: RLE 5/5 hip flexion, 5/5 knee extension, 1-2/5 DF, 4+/5 PF, 2-3/5 EHL LLE 5/5 hip flexion, 5/5 knee extension, 0/5 DF, 4+/5 PF Sensation intact to light touch, sensory deficit on dorsal aspect of right foot Incision C/D/I Assessment/Plan: POD 5 lumbar decompression and fusion New onset of right dropfoot post-op; CT of the lumbar spine reveals expected post op changes with hardware in good position Continue current pain regimen PT /OT recommending IP rehab, patient agreeable SCDs for DVT prophylaxis Pt stable for DC Discharge orders placed. Awaiting bed JET Lewis CNP Images from the original note were not included. PHYSICAL THERAPY [facility] Treatment Note Name/MRN: Ginger Weldon ([id number]) Date of : 1960 Age: 63 y.o. Room/Bed: -6104/-6104 A Discharge Recommendation: IP Rehab Equipment Needed: No Other: tbd Assessment Pt presents with the listed deficits and decreased functional mobility. Reviewed Spinal precautions. Able to recall and maintains precautions throughout. Tolerated session well. Bed Mobility demo'd ModA with use of bed features. Transfers demo'd Flavio. Ambulation demo'd with use of FWW at Flavio. Flavio/CGA required for standing balance. Pt limited by tremors, weakness, fatigue and pain. Increased time required to complete tasks. PT goals progressing. Pt would benefit from continued skilled PT. Pt is motivated and able to tolerate 3 hours of therapy a day. Recommend IP Rehab at discharge. Subjective Pt supine. Agreeable to therapy. RN cleared for PT. Pain: Does not rate. numbness and tingling with increased pain with touch and mobility Medical Precautions: No active isolations Proper PPE donned/doffed in accordance with facility standards. Fall Risk: Costa Fall Risk Score: 60 (High Risk) Precautions/Restrictions: Spine Precautions: No Bending, No Lifting, No Twisting Lines/Drains/Airways: PIV, NATASHA drain Fall Precautions Overall Cognitive Status: WFL Overall Orientation Status: Oriented x4 Family/Caregiver Present: spouse Objective Bed Mobility Supine to sit: Mod Assist Sit to supine: Mod Assist Rolling to right: Min Assist Rolling to left: Min Assist Scooting: Min Assist Log Roll technique. Assist with LE and trunk elevation. Increased time Transfers/Mobility Sit to stand: Min Assist Stand to sit: Min Assist Toilet: Min Assist X 2 from EOB. Tremors throughout. Increased time to come stand. Good anterior wt shift and use of momentum. Cues for proper hand and foot placement. Cues to reach for safety awareness and maintain eccentric control when returning to seated surface. Cues for upright posture. No overt LOB or true instability noted. Genera unsteadiness. Denies dizziness. Device(s) used: Front wheeled walker Ambulation Ambulation 1 Assistive device(s) used: Front wheeled walker Assist level: Min Assist Distance (ft): 25ft x 2 Quality of gait: reciprocal stepping, B foot clearance, uneven step length, narrow JOVITA, slow sosa, heavy UE reliance, educated short/small steps to turn vs twisting, decreased BLE TKE, hip instability, increased lateral sway Able to maintain spinal precautions. Able to maintain Jovita within FWW and close proximity to FWW throughout. No overt LOB. Unsteadiness and postural sway noted. Tremors throughout. Balance During Session: Posture: fair Sitting - Static: SBA Sitting - Dynamic: SBA Standing - Static: Contact Guard, Min Assist Standing - Dynamic: Min Assist Stood with UE support for pericare, meng/doff pants. Able to perform some ADL's with assist for balance. No overt LOB. Unsteadiness in posterior and lateral directions Plan Continue acute PT per plan of care. Safety/Education Safety Safety Devices in place: All fall risk precautions in place, call light within reach, left in bed, gait belt, patient at risk for falls, nurse notified, and no alarms engaged upon entry Restraints: No Education Education Given To: patient Education Provided: PT Role, PT Goals, Gait Training, Plan of Care, Precautions, Transfer Training, Energy Conservation, Family Education, Equipment, Fall Prevention Education, Discharge Recommendations, and Benefits of Increasing Activity Education Method: Verbal, Demonstration, and Teach Back Barriers to Learning: None Education Outcome: Verbalized Understanding, Demonstrated Understanding, and Continued Education Needed Outcome Measures AM-PAC AM-PAC Inpatient Mobility Raw Score (No Stairs) : 15 JH-HLM JH-HLM Score: Walked 25 ft or more (i.e. walked outside of room) Goals Patient Stated Goal: rehab Encounter Problems Encounter Problems (Active) Mobility Patient will ambulate 25 feet with modified independence and least restrictive device in order to improve safety and independence with mobility. (Progressing) Start: 12/03/24 Expected End: 12/31/24 Patient will ascend and descend 6 stairs with least restrictive device and supervision in order to safely negotiate home. (Not Addressed) Start: 12/03/24 Expected End: 12/31/24 Pain - Adult Transfers Patient will perform bed mobility with modified independence in order to improve independence and prepare for out of bed mobility. (Progressing) Start: 12/03/24 Expected End: 12/31/24 Patient will complete functional transfer with least restrictive device with modified independence in order to prepare for ambulation. (Progressing) Start: 12/03/24 Expected End: 12/31/24 Therapy Time Individual Co-treatment Time In 1126 Time Out 1152 Minutes 26 Timed Code Treatment Minutes: 26 Minutes (FA, GT) ODD JOB WORKER wore PPE in compliance with hospital guidelines and regulation when treating this patient. Ariadna Fry, ODD JOB WORKER Cosigned by Daya Hudson, PT at 12/06/2024 3:09 PM EDT Subjective: S/p L4-S1 decompression with L4-S1 fusion. Incisional pain is improving. He continues to have right foot numbness and weakness, similar to yesterday. Physical Exam: Alert and oriented x 3 Motor strength: RLE 5/5 hip flexion, 5/5 knee extension, 1-2/5 DF, 4+/5 PF, 2-3/5 EHL LLE 5/5 hip flexion, 5/5 knee extension, 0/5 DF, 4+/5 PF Sensation intact to light touch, sensory deficit on dorsal aspect of right foot Incision C/D/I Assessment/Plan: POD 4 lumbar decompression and fusion New onset of right dropfoot post-op; CT of the lumbar spine reveals expected post op changes with hardware in good position Continue current pain regimen PT /OT recommending IP rehab, patient agreeable SCDs for DVT prophylaxis Medicine team for medical management Discharge orders placed for rehab pending auth Seen with Dr Sadie Brown PA-C Images from the original note were not included. PHYSICAL THERAPY [facility] Treatment Note Name/MRN: Ginger Weldon ([id number]) Date of : 1960 Age: 63 y.o. Room/Bed: 6104/6104 A Discharge Recommendation: IP Rehab Equipment Needed: No Other: tbd Assessment Heavy UE reliance all activity. Improved gait tolerance bilat dorsi assist wrap. Discuss AFO. Motivated. Rec rehab for improved gait, functional independence Rec rehab Subjective Agree to PT. [place]? Goes by Max Pain: no c/o supine, hip discomfort with mobility Medical Precautions: No active isolations Proper PPE donned/doffed in accordance with facility standards. Fall Risk: Costa Fall Risk Score: 60 (High Risk) Precautions/Restrictions: Spine Precautions: No Bending, No Lifting, No Twisting Fall Precautions Overall Cognitive Status: WFL Overall Orientation Status: Oriented x4 Family/Caregiver Present: spouse Objective Bed Mobility Supine to sit: Mod Assist Sit to supine: Mod Assist Rolling to left: Min Assist HOB Elevated Use of bed rail(s) Educate logroll, exit left, assist for trunk elevation up, LE's into bed Transfers/Mobility Sit to stand: Min Assist, Mod Assist Stand to sit: Min Assist Educate technique, UE placement, not hold breath, varied surface height, grab bar toilet Ambulation Ambulation 1 - cem wrap dorsi assist BLE's Assistive device(s) used: Front wheeled walker Assist level: Min Assist+chair follow Distance (ft): ~45'x2 Quality of gait: reciprocal stepping, B foot clearance, uneven step length, narrow JOVITA, slow sosa, heavy UE reliance, educated short/small steps to turn vs twisting, decreased BLE TKE, hip instability, increased lateral sway Balance: seated UE support supervision, stance BUE, unilat UE support min assist Exercises Exercises Comments: spine level 1 HEP performed, provided handout. assist for bilat dorsi flex Plan Continue acute PT per plan of care. Safety/Education Safety Safety Devices in place: call light within reach, left in bed, gait belt, and no alarms engaged upon entry Restraints: No Education See above Outcome Measures AM-PAC AM-PAC Inpatient Mobility Raw Score (No Stairs) : 15 JH-HLM -HLM Score: Walked 25 ft or more (i.e. walked outside of room) Goals Patient Stated Goal: rehab Encounter Problems Encounter Problems (Active) Mobility Patient will ambulate 25 feet with modified independence and least restrictive device in order to improve safety and independence with mobility. (Progressing) Start: 12/03/24 Expected End: 12/31/24 Patient will ascend and descend 6 stairs with least restrictive device and supervision in order to safely negotiate home. (Not Addressed) Start: 12/03/24 Expected End: 12/31/24 Pain - Adult Transfers Patient will perform bed mobility with modified independence in order to improve independence and prepare for out of bed mobility. (Progressing) Start: 12/03/24 Expected End: 12/31/24 Patient will complete functional transfer with least restrictive device with modified independence in order to prepare for ambulation. (Progressing) Start: 12/03/24 Expected End: 12/31/24 Therapy Time Individual Co-treatment Time In 1333 Time Out 1409 Minutes 36 Timed Code Treatment Minutes: (gt-fa) Selene Navarro ODD JOB WORKER Cosigned by Matt Rao PT at 12/05/2024 2:36 PM EDT Subjective: S/p L4-S1 decompression with L4-S1 fusion. He continues to have incisional pain and right foot weakness. He feels the weakness is similar to yesterday. Physical Exam: Alert and oriented x 3 Motor strength: RLE 5/5 hip flexion, 5/5 knee extension, 1-2/5 DF, 4+/5 PF, 2-3/5 EHL LLE 5/5 hip flexion, 5/5 knee extension, 0/5 DF, 4+/5 PF Sensation intact to light touch, sensory deficit on dorsal aspect of right foot Incision C/D/I NATASHA drain removed, 50 ml last shift Assessment/Plan: POD 3 lumbar decompression and fusion New onset of right dropfoot; CT of the lumbar spine reveals expected post op changes with hardware in good position Continue current pain regimen NATASHA drain removed, tip intact PT /OT recommending IP rehab, patient agreeable SCDs for DVT prophylaxis Medicine team for medical management Plan for discharge in 1 to 2 days pending progress with therapy and placement Seen with Dr Foreign Brown PA-C Images from the original note were not included. PHYSICAL THERAPY [facility] Treatment Note Name/MRN: Ginger Weldon ([id number]) Date of : 1960 Age: 63 y.o. Room/Bed: -6104/-6104 A Discharge Recommendation: IP Rehab Equipment Needed: No Other: tbd Assessment Patient making progress towards functional goals. Patient performing bed mobility with Min A, transfers with Min to Mod A with FWW, ambulation up to 16 feet with FWW and Min A, static and dynamic standing with FWW with Min A. Patient would benefit from continued skilled PT services to address previously mentioned deficits. At this time patient would be appropriate for IPR following discharge as patient is currently unsafe to go home and could tolerate 3 hours of therapy each day. Subjective Patient supine in bed upon arrival. Patient agreeable to participate in therapy today. Patient reports L foot drop present for 2 months prior to surgery, and R foot drop following surgery. Pain: 0-10 pain scale: 6/10 Location: low back Medical Precautions: No active isolations Proper PPE donned/doffed in accordance with facility standards. Fall Risk: Costa Fall Risk Score: 60 (High Risk) Precautions/Restrictions: Spine Precautions: No Bending, No Lifting, No Twisting Lines/Drains/Airways: PIV, NATASHA drain Fall Precautions Overall Cognitive Status: WFL Overall Orientation Status: Oriented x4 Family/Caregiver Present: none Objective Bed Mobility Supine to sit: Min Assist Sit to supine: Min Assist Rolling to right: Min Assist Rolling to left: Min Assist Scooting: Min Assist HOB Elevated Use of bed rail(s) Educated patient on spinal precautions prior to functional mobility. Patient able to recall 1/3. Educated patient on logroll technique for supine<>sit transfers, patient shows good technique with minor cueing. Verbal cueing on proper hand placement, proper sequencing. Min A to assist with BLE movements Noted bilateral footdrop noted with patient with all activities. Transfers/Mobility Sit to stand: Min Assist, Mod Assist Stand to sit: Min Assist, Mod Assist Bedside commode: Min Assist, Mod Assist Sit<>stand from EOB 4x with FWW Sit<>stand from bedside commode 1x with FWW Verbal and tactile cueing on proper hand placement, reaching back for sitting surface, proper JOVITA, maintaining spinal precautions. Varying assist from Min to Mod A depending on patient transfer technique. Device(s) used: Front wheeled walker Ambulation Ambulation 1 Assistive device(s) used: Front wheeled walker Assist level: Min Assist Distance (ft): 8 feet 3x Quality of gait: short stride length, steppage gait, forward posture, varying proximity to FWW Ambulation 2 Assistive device(s) used: Front wheeled walker Assist level: Min Assist Distance (ft): 16, 4 Quality of gait: short stride length, steppage gait, forward posture, varying proximity to FWW Verbal and tactile cueing on upright posture, proper JOVITA, proper turn sequencing. Balance During Session: Posture: fair Sitting - Static: SBA Sitting - Dynamic: SBA Standing - Static: Min Assist Standing - Dynamic: Min Assist Sitting balance at EOB Standing balance in front of bed and bedside commode with FWW Static standing balance up to 3 min with FWW, Min A to assist with upright posture and stability Dynamic standing with FWW with lateral weightshifting, Min A to maintain stability Plan Continue acute PT per plan of care. Safety/Education Safety Safety Devices in place: All fall risk precautions in place, call light within reach, left in bed, and gait belt Restraints: N/A Education Education Given To: patient Education Provided: PT Role, PT Goals, Gait Training, Precautions, and Transfer Training Education Method: Verbal and Demonstration Barriers to Learning: None Education Outcome: Verbalized Understanding and Demonstrated Understanding Outcome Measures AM-PAC AM-PAC Inpatient Mobility Raw Score (No Stairs) : 13 JH-HLM JH-HLM Score: Walked 25 ft or more (i.e. walked outside of room) Goals Patient Stated Goal: to get strength back in RLE Encounter Problems Encounter Problems (Active) Mobility Patient will ambulate 25 feet with modified independence and least restrictive device in order to improve safety and independence with mobility. (Progressing) Start: 12/03/24 Expected End: 12/31/24 Patient will ascend and descend 6 stairs with least restrictive device and supervision in order to safely negotiate home. (Not Addressed) Start: 12/03/24 Expected End: 12/31/24 Pain - Adult Transfers Patient will perform bed mobility with modified independence in order to improve independence and prepare for out of bed mobility. (Progressing) Start: 12/03/24 Expected End: 12/31/24 Patient will complete functional transfer with least restrictive device with modified independence in order to prepare for ambulation. (Progressing) Start: 12/03/24 Expected End: 12/31/24 Therapy Time Individual Co-treatment Time In 1418 Time Out 1448 Minutes 30 Timed Code Treatment Minutes: 30 Minutes (1 unit of FA, 1 unit of GT) Alexx Benitez SPT Cosigned by Patrick Don, PT at 12/04/2024 3:28 PM EDT Nutrition rescreen completed. Chart reviewed. Patient to be monitored and followed by the diet video technician. Kadi Yarbrough, DT Subjective: S/p postop day 2 L4-S1 decompression with L4-S1 fusion. Patient is seen and examined at bedside today. Patient continues to have weakness and numbness in right foot. Denies any significant pain other than some right hip pain. He had a CT of his lumbar spine completed yesterday. PT/OT recommending rehab Physical Exam: Alert and oriented x 3 Strength 5/5 bilateral quadriceps and hamstrings and bilateral plantar flexion, 0/5 in bilateral dorsiflexion Sensation intact to light touch, sensory deficit on dorsal aspect of right foot Incision C/D/I NATASHA drain with bloody output, 70cc last shift Assessment/Plan: POD 2 lumbar decompression and fusion New onset of right dropfoot; will obtain CT of the lumbar spine reviewed and reveals expected post op changes with hardware in good position Continue current pain regimen continue NATASHA drain monitor and record output PT OT encourage mobilization, recommending IP rehab. Patient agreeable tot his SCDs for DVT prophylaxis Medicine team for medical management Plan for discharge in 1 to 2 days pending drain output, progress with PT, and placement. Addendum: Dr. Kilgore evaluated patient later this afternoon. Patient had improvement in strength in right foot with right EHL 2-3/5 and right dorsiflexion 1-2/5. No new recs at this time. Will continue to follow. Halina Lee PA-C Images from the original note were not included. OCCUPATIONAL THERAPY [facility] Initial Evaluation Name/MRN: Ginger Weldon ([id number]) Evaluation Date: 12/04/2024 Date of : 1960 Admission Date: 12/02/2024 8:12 AM Age: 63 y.o. Room[facility]Bed: [facility] A Discharge Recommendation: IP Rehab Assessment IMPRESSION: Pt admitted for spondylolisthesis of lumbar regain s/p L4- S1 decompression and fusion 12/02. Prior to admission pt reports independence with ADLs. Pt experiencing new foot drop in RLE; pre-op pt had foot drop in LLE. Pt is currently performing below functional baseline for ADLs and mobility. Pt was able to maintain dynamic stand with marching/weight shifting for ~2.5 minutes x2. Pt would require hands on assistance for all standing ADLs d/t impaired balance and limited standing tolerance. Pt would be unsafe to return home and would benefit from IPR to return to functional baseline. Pt would be able to tolerate 3 hours of therapy; he is very motivated and willing to participate. Admitting Diagnosis: spondylolisthesis of lumbar regain s/p L4- S1 decompression and fusion 12/02. Performance Deficits /Impairments: Increased Pain, Decreased Functional Mobility, Decreased ADL status, Decreased Strength, Decreased Safety Awareness, Decreased Endurance, Decreased Balance, Decreased ROM, Decreased High Level IADLs, and Decreased Sensation Prognosis: Fair Decision Making: Medium Complexity Subjective Pt motivated and ready to participate. Doesn't want to get into chair but wants to stand and try walking a few steps. Pain: Degroot-Candelario Pain Ratin = Hurts little more Pain Location: Back Past Medical History: Medical History[1] Past Surgical History: Surgical History[2] Admission Diagnosis: Patient Active Problem List Diagnosis Date Noted Spondylolisthesis of lumbar region 12/02/2024 Cancer (CMS/HCC) (HCC) Basal cell carcinoma (BCC) of skin of face 09/11/2024 Urinary retention 03/06/2024 Calculus of urinary bladder 08/05/2023 Nocturia 08/05/2023 Urinary hesitancy 08/05/2023 Insomnia 05/01/2023 Urinary frequency 01/30/2023 Hypertension 08/07/2022 Urinary retention with incomplete bladder emptying 06/06/2022 Adenocarcinoma of prostate (HCC) 04/25/2022 Renal insufficiency 04/25/2022 Stricture of male urethra 04/25/2022 Hypoxia 04/20/2022 BESSIE (acute kidney injury) (HCC) 04/19/2022 Elevated blood-pressure reading, without diagnosis of hypertension 04/19/2022 Nicotine dependence 04/19/2022 Suspected sleep apnea 04/19/2022 Benign prostatic hyperplasia with urinary retention 04/11/2022 Elevated PSA 04/11/2022 Nodular prostate 04/11/2022 Clubbing of nails 03/05/2019 Foot pain, bilateral 03/05/2019 Medical Precautions: No active isolations Proper PPE donned/doffed in accordance with facility standards. Fall Risk: Costa Fall Risk Score: 60 (High Risk) Precautions/Restrictions: Spine Precautions: No Bending, No Lifting, No Twisting Lines/Drains/Airways: PIV, NATASHA drain, fall precautions Family/Caregiver Present: spouse Overall Cognitive Status: WFL Overall Orientation Status: Oriented x4 Social/Functional History Patient admitted from home. Lives With: Spouse Type of Home: single family home Home Layout: Split Level Home, 1/2 Bath on Main Floor, and Bed/Bath Upstairs Home Access: Level Trucksmith entry on basement level where there is a half bath and living room, would need to go up 6 + 7 steps to get to level with bed/full bath Bathroom Shower/Tub: tub shower combo Toilet: Standard Home Equipment: front wheeled walker and cane Homemaking Responsibilities: Needs Assist Receives Help From: Spouse Prior Level of Function Prior Level of ADL Function: Independent Prior Level of Mobility: Independent; Device: Front wheeled walker and Straight Cane; reports use of cane for stairs and FWW for around the house Prior Level of Transfers: Independent Objective ADLs LE Dressing: Dependent, pt unable to doff socks while seated EOB d/t limited forward bending and inability to complete figure four pose Pt states decreased sensation distally in left foot and dorsal aspect of right foot and bottom half of RLE singh. Pt can feel deep pressure but not light touch. States no numbness or tingling. Upper Extremity Assessment AROM: WFL PROM: WFL Strength: WFL Bed Mobility Supine to sit: Min Assist, for trunk elevation Sit to supine: Mod Assist, LE elevation; educated on log roll and maintaining spinal precautions during bed mobility Use of bed rail(s) Transfers/Mobility Sit to stand: Min Assist, completed 3 stands- 2 stands lasting 2.5 minutes each, required lengthy seated rest break in between d/t fatigue and decreased endurance but pt motivated to try again. Stand to sit: Min Assist Sitting balance: Modified Independent Standing balance: Min Assist, dynamic standing- able to progress to CGA at times but min for safety during weight shifting. Functional mobility: Min Assist Pt educated on weight shifting side to side to improve function in BLEs and prepare for completion of standing ADLs. Pt able to complete side steps and a few steps forward with the use of the FWW. Decreased safety awareness notes as seen by pt tying to stand without walker for support; quickly educated pt on risks. Pt displays impaired standing balance. Device(s) used: Front wheeled walker AM-PAC AM-PAC Inpatient Daily Activity Raw Score: 17 ADL Inpatient CMS G-Code Modifier: CK Plan Pt would benefit from skilled acute OT services to address Strengthening, ROM, Gait Training, Balance Training, Self-Care/ADL Training, Functional Mobility Training, Endurance Training, Safety Education and Training, Stair Training, Equipment Evaluation/Education, Positioning, and Sensory Integration Frequency: 5x/week for 4 weeks Barriers: Pain, Impaired balance, Lower extremity weakness, Decreased endurance, Limited safety awareness, Stairs at home, Impulsivity, Decreased sensation, and Long standing deficits Safety/Education Safety Safety Devices in place: All fall risk precautions in place, call light within reach, left in bed, patient at risk for falls, and no alarms engaged upon entry Restraints: No Education Education Given To: patient Education Provided: OT Role, Plan of Care, Precautions, and Discharge Recommendations Education Method: Verbal Barriers to Learning: None Education Outcome: Verbalized Understanding Goals Patient Stated Goal: Go to IPR Encounter Problems Encounter Problems (Active) Balance Patient will maintain dynamic standing balance for 5 minutes with modified independence in order to demonstrate decreased risk of falling. Start: 12/04/24 Expected End: 01/01/25 Bathing Patient will utilize adaptive techniques to bathe lower body min A Start: 12/04/24 Expected End: 01/01/25 Dressings Lower Extremities Patient will dress lower body (AE PRN) min a Start: 12/04/24 Expected End: 01/01/25 Transfers Patient will complete functional transfer with least restrictive device with modified independence in order to prepare for ambulation. Start: 12/04/24 Expected End: 01/01/25 Therapy Time Individual Co-Treatment Co-Evaluation Time In 952 Time Out 1021 Minutes 28 Timed Code Treatment Minutes: 15 Minutes (1-FA) Patient's Occupational Therapy Plan of Care supervision is transferred to a [facility] Occupational Therapist. Goals and/or treatment plan was established in collaboration with patient/family/other representatives. Nadiya Babcock, S/OT [1] Past Medical History: Diagnosis Date Bernard's palsy BPH (benign prostatic hyperplasia) Cancer (CMS/HCC) (HCC) Prostate HTN (hypertension) PAC (premature atrial contraction) 12/02/2024 Pars defect of lumbar spine Prediabetes HbA1C 6 [2] Past Surgical History: Procedure Laterality Date BACK SURGERY 12/02/2024 L5-S1 posterior decompression/fusion BLADDER SURGERY TRANSURETHRAL RESECTION OF PROSTATE 04/2024 Cosigned by Digna Lomas OT at 12/04/2024 2:07 PM EDT Hospitalist Progress Note 12/04/2024 Subjective: Admit Date: 12/02/2024 PCP: Je Lira Room#: [id number] A Interval History: Neurosurgery is primary. On room air blood pressure stable. Denies chest pain shortness of breath abdominal pain nausea vomiting diarrhea lightheadedness dizziness. Patient tolerating therapy. On room air blood pressure stable no fever. Adult diet Regular 24HR INTAKE/OUTPUT: Intake/Output Summary (Last 24 hours) at 12/04/2024 1032 Last data filed at 12/04/2024 0536 Gross per 24 hour Intake -- Output 115 ml Net -115 ml Past Medical History: Medical History[1] LABS: CBC: Recent Labs 12/03/24 0201 WBC 14.0* RBC 4.02* HGB 12.1* HCT 36.7* MCV 91.3 RDW 15.2* PLT 235 BMP: Recent Labs 12/03/24 0201 NA 135* K 4.1 CL 103 CO2 23 BUN 11 CREATININE 0.79 GLUCOSE 159* CALCIUM 9.1 ANIONGAP 9 LIVER PROFILE:No results for input(s): AST, ALT, BILITOT, ALKPHOS, PROT in the last 72 hours. No lab exists for component: LABALBU PT/INR: No results for input(s): PROTIME, INR in the last 72 hours. CARDIAC ENZYMES: No results for input(s): TROPONINI in the last 72 hours. Procalcitonin: No results found for: PROCAL COVID-19 PCR: No results for input(s): COVID19 in the last 72 hours. Objective: Vitals: BP 137/69 (BP Location: Right arm, Patient Position: Sitting) Pulse 60 Temp 37.2 C (99 F) (Temporal) Resp 21 SpO2 96% Pulse Ox: SpO2 Av.7 % Min: 90 % Max: 96 % Supplemental O2: O2 Flow Rate (L/min): 2 L/min Physical Exam HENT: Head: Normocephalic and atraumatic. Cardiovascular: Rate and Rhythm: Normal rate and regular rhythm. Pulmonary: Effort: Pulmonary effort is normal. Neurological: Mental Status: He is alert and oriented to person, place, and time. Medications: Scheduled PRN Scheduled Meds[2] PRN Meds[3] Continuous Continuous Meds[4] Assessment Hypertension Neuropathy BPH with urinary obstruction Continue Norvasc Flomax gabapentin L5-S1 spondylolisthesis and stenosis status post L4 S1 decompression L4-L5 and L5-S1 combined posterolateral transforaminal interbody fusions. Placement of intervertebral expandable titanium cages L4-L5 and L5-S1 and L4 S1 pedicle screw fixation by Dr. Kilgore. Pain management by acute pain service and primary neurosurgery. DVT prophylaxis per primary/neurosurgery. History of prostate cancer status post radiation 2021 History of basal cell carcinoma Leukocytosis monitor Normocytic anemia monitor Advance Directive: No Order Discharge planning per neurosurgery Extended Emergency Contact Information Primary Emergency Contact: Claudia Weldon [address]: [address] [place] [id number] [place] Relation: Spouse Nicholas Driver DO Division of Hospitalist Medicine [facility] [1] Past Medical History: Diagnosis Date Bernard's palsy BPH (benign prostatic hyperplasia) Cancer (CMS/HCC) (HCC) Prostate HTN (hypertension) PAC (premature atrial contraction) 12/02/2024 Pars defect of lumbar spine Prediabetes HbA1C 6 [2] acetaminophen, 1,000 mg, Oral, q8h amLODIPine, 2.5 mg, Oral, Daily dexAMETHasone, 4 mg, IntraVENous, q8h gabapentin, 300 mg, Oral, TID magnesium hydroxide, 30 mL, Oral, BID potassium chloride CR, 15 mEq, Oral, Daily sodium chloride 0.9%, 10 mL, IntraVENous, 2 times per day tamsulosin, 0.4 mg, Oral, Daily [3] PRN medications: HYDROmorphone OR HYDROmorphone, naloxone, ondansetron ODT OR ondansetron, oxyCODONE OR oxyCODONE, sodium chloride, sodium chloride 0.9%, tiZANidine [4] lactated Ringer's, 50 mL/hr, Last Rate: 50 mL/hr (12/02/24 1240) Overnight at approximately 2 AM he developed new right foot drop with associated sensory disturbance. He was not noted to have dorsiflexion weakness prior to this during the postoperative timeframe on the right side. Preop he was noted to have left foot drop. He does not have associated radiculopathy. He has minimal incisional pain and no significant leg pain. CT demonstrates expected postoperative changes. Hardware is in good position. There is no evidence of significant neural compression on the right side to explain this deficit. He likely has perioperative nerve root inflammation and associated root dysfunction. Decadron was started overnight. We will continue to observe. There are no further surgical indications at this point. Patient declined smoking cessation counseling. Accepting of handout with contact information for future reference. Subjective: S/p postop day 1 L4-S1 decompression with L4-S1 fusion. Patient is seen and examined at bedside today. Dr. Kilgore was notified last night of patient new onset right dropfoot. Patient was reported to have left dropfoot prior to surgery and was complaining of new onset right dropfoot last evening. Upon assessment this morning patient does have 0 out of 5 strength in the right dorsiflexion. Physical Exam: Alert and oriented x 3 Motor strength patient continues to have 0/5 strength in left dorsi flexion, 3/5 strength in left plantarflexion, 5/5 in both left quadricep and hamstring. Right dorsiflexion 0/5, right plantarflexion 3/5, right hamstring and quadriceps 5/5 Sensation intact to light touch Incision C/D/I NATASHA drain with bloody output. Assessment/Plan: POD 1 lumbar decompression and fusion New onset of right dropfoot; will obtain CT of the lumbar spine for review Continue current pain regimen continue NATASHA drain monitor and record output PT OT encourage mobilization SCDs for DVT prophylaxis Medicine team for medical management Plan for discharge in 2 to 3 days when medically stable, new onset weakness has been worked up and/or resolved, therapy recommendations are in place and NATASHA drain output has decreased. JET Minor CNP Hospitalist Progress Note 12/03/2024 Subjective: Admit Date: 12/02/2024 PCP: Je Lira Room#: [id number] A Interval History: Neurosurgery is primary. Overnight patient reported new onset numbness in the right foot. Patient reported prior to surgery he had left leg pain and weakness. Reported right foot heaviness and unable to lift his leg felt heavy and was able to bend his knee. Dorsi flex and was not present bilaterally. Plantarflexion was present bilaterally. RN overnight did discuss this with Dr. Kilgore. Dr. Donich ordered IV Decadron. On room air blood pressure stable no fever. Pt off the floor for CT lumbar spine Adult diet Regular 24HR INTAKE/OUTPUT: Intake/Output Summary (Last 24 hours) at 12/03/2024 0852 Last data filed at 12/03/2024 0539 Gross per 24 hour Intake 1750.3 ml Output 300 ml Net 1450.3 ml Past Medical History: Medical History[1] LABS: CBC: Recent Labs 12/03/24 0201 WBC 14.0* RBC 4.02* HGB 12.1* HCT 36.7* MCV 91.3 RDW 15.2* PLT 235 BMP: Recent Labs 12/03/24 0201 NA 135* K 4.1 CL 103 CO2 23 BUN 11 CREATININE 0.79 GLUCOSE 159* CALCIUM 9.1 ANIONGAP 9 LIVER PROFILE:No results for input(s): AST, ALT, BILITOT, ALKPHOS, PROT in the last 72 hours. No lab exists for component: LABALBU PT/INR: No results for input(s): PROTIME, INR in the last 72 hours. CARDIAC ENZYMES: No results for input(s): TROPONINI in the last 72 hours. Procalcitonin: No results found for: PROCAL COVID-19 PCR: No results for input(s): COVID19 in the last 72 hours. Objective: Vitals: BP 139/74 (BP Location: Left arm, Patient Position: Lying) Pulse 71 Temp 37.2 C (99 F) (Temporal) Resp 20 SpO2 93% Pulse Ox: SpO2 Av.7 % Min: 80 % Max: 97 % Supplemental O2: O2 Flow Rate (L/min): 2 L/min Physical Exam Medications: Scheduled PRN Scheduled Meds[2] PRN Meds[3] Continuous Continuous Meds[4] Assessment Hypertension Neuropathy BPH with urinary obstruction Continue Norvasc Flomax gabapentin L5-S1 spondylolisthesis and stenosis status post L4 S1 decompression L4-L5 and L5-S1 combined posterolateral transforaminal interbody fusions. Placement of intervertebral expandable titanium cages L4-L5 and L5-S1 and L4 S1 pedicle screw fixation by Dr. Kilgore. Pain management by acute pain service and primary neurosurgery. DVT prophylaxis per primary/neurosurgery. History of prostate cancer status post radiation 2021 History of basal cell carcinoma Leukocytosis monitor Normocytic anemia monitor Advance Directive: No Order Discharge planning per neurosurgery Extended Emergency Contact Information Primary Emergency Contact: Claudia Weldon [address]: [address] [place] [address] [place] Relation: Spouse Nicholas Driver DO [facility] [1] Past Medical History: Diagnosis Date Bernard's palsy BPH (benign prostatic hyperplasia) Cancer (CMS/HCC) (HCC) Prostate HTN (hypertension) PAC (premature atrial contraction) 12/02/2024 Pars defect of lumbar spine Prediabetes HbA1C 6 [2] acetaminophen, 1,000 mg, Oral, q8h amLODIPine, 2.5 mg, Oral, Daily dexAMETHasone, 4 mg, IntraVENous, q8h gabapentin, 300 mg, Oral, TID magnesium hydroxide, 30 mL, Oral, BID potassium chloride CR, 15 mEq, Oral, Daily sodium chloride 0.9%, 10 mL, IntraVENous, 2 times per day tamsulosin, 0.4 mg, Oral, Daily [3] PRN medications: HYDROmorphone OR HYDROmorphone, naloxone, ondansetron ODT OR ondansetron, oxyCODONE OR oxyCODONE, sodium chloride, sodium chloride 0.9%, tiZANidine [4] lactated Ringer's, 50 mL/hr, Last Rate: 50 mL/hr (12/02/24 1240) Images from the original note were not included. PHYSICAL THERAPY [facility] Initial Evaluation Name/MRN: Ginger Weldon ([id number]) Evaluation Date: 12/03/2024 Date of : 1960 Admission Date: 12/02/2024 8:12 AM Age: 63 y.o. Room/Bed: [facility] A Discharge Recommendation: IP Rehab Equipment Needed: No Other: tbd Assessment IMPRESSION: 63 y.o. pt admitted to [facility] for spondylolisthesis of lumbar region, s/p L4-S1 decompression and fusion 12/02. They were Min A for bed mobility, and Mod A for transfers. 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 Highly motivated to progress. Would recommend IP rehab at discharge. Pt can tolerate 3 hr therapy/day. Admitting Diagnosis: spondylolisthesis of lumbar region, s/p L4-S1 decompression and fusion 12/02 Prognosis: good Performance Deficits /Impairments: Increased Pain, Decreased Functional Mobility, Decreased Strength, Decreased Endurance, Decreased Balance, and Decreased ROM Decision Making: Medium Complexity Subjective Pt supine in bed. Agreeable to PT session. Cleared by nursing Pain: Degroot-Candelario Pain Ratin = Hurts little more Pain Location: low back and R hip Past Medical History: Medical History[1] Past Surgical History: Surgical History[2] Admission Diagnosis: Patient Active Problem List Diagnosis Date Noted Spondylolisthesis of lumbar region 12/02/2024 Cancer ([facility] ([facility]) Basal cell carcinoma (BCC) of skin of face 09/11/2024 Urinary retention 03/06/2024 Calculus of urinary bladder 08/05/2023 Nocturia 08/05/2023 Urinary hesitancy 08/05/2023 Insomnia 05/01/2023 Urinary frequency 01/30/2023 Hypertension 08/07/2022 Urinary retention with incomplete bladder emptying 06/06/2022 Adenocarcinoma of prostate ([facility]) 04/25/2022 Renal insufficiency 04/25/2022 Stricture of male urethra 04/25/2022 Hypoxia 04/20/2022 BESSIE (acute kidney injury) ([facility]) 04/19/2022 Elevated blood-pressure reading, without diagnosis of hypertension 04/19/2022 Nicotine dependence 04/19/2022 Suspected sleep apnea 04/19/2022 Benign prostatic hyperplasia with urinary retention 04/11/2022 Elevated PSA 04/11/2022 Nodular prostate 04/11/2022 Clubbing of nails 03/05/2019 Foot pain, bilateral 03/05/2019 Medical Precautions: No active isolations Proper PPE donned/doffed in accordance with facility standards. Fall Risk: Costa Fall Risk Score: 45 (High Risk) Precautions/Restrictions: Spine Precautions: No Bending, No Lifting, No Twisting Lines/Drains/Airways: PIV, NATASHA drain Fall Precautions Family/Caregiver Present: spouse Overall Cognitive Status: WFL Overall Orientation Status: Oriented x4 Vision: Not Assessed Hearing: normal Social/Functional History Patient admitted from home. Lives With: Spouse Type of Home: single family home Home Layout: Split Level Home, 1/2 Bath on Main Floor, and Bed/Bath Upstairs Home Access: Level Trucksmith entry on basement level where there is a half bath and living room, would need to go up 6 + 7 steps to get to level with bed/full bath Bathroom Shower/Tub: Toilet: Standard Home Equipment: front wheeled walker and cane Homemaking Responsibilities: Needs Assist Receives Help From: Spouse Active Net Fisher: Prior Level of Function Prior Level of ADL Function: Independent Prior Level of Mobility: Independent; Device: FWW on level ground, cane on steps Prior Level of Transfers: Independent Objective Lower Extremity Assessment AROM: Impaired: R knee lacking 5 degrees, L knee lacking 10 degrees, Lexa ankles foot drop, hips WFL PROM: WFL Strength: Lower Extremity Strength Right Left Hip Flexion 3 3+ Hip Abduction Hip Extension Hip External Rotation (ER) Hip Internal Rotation (IR) Knee Extension 3- 3- Knee Flexion 3+ 3+ Ankle Dorsiflexion (DF) 0 0 Ankle Plantarflexion (PF) 3 3+ Inversion Eversion Sensation: Impaired: LLE WFL. RLE lacking in anterior singh and dorsum of foot for both light touch and pin prick sensation Balance: Balance During Session: Posture: fair Sitting - Static: Contact Guard Sitting - Dynamic: Contact Guard Standing - Static: Min Assist Standing - Dynamic: Mod Assist Seated EOB ~ 5 min with BUE support and CGA. Standing ~1 min with Min A, while attempting lateral weight shifting requiring Mod A and heavy reliance on FWW Bed Mobility: Supine to sit: Min Assist Sit to supine: Min Assist Scooting: Contact Guard RLE and trunk assist into and out of bed. Increased time. Once seated EOB, BUE support and CGA for scooting to EOB. Seated EOB, CGA for L lateral scooting to HOB Transfers Sit to stand: Mod Assist Stand to sit: Mod Assist EOB x1 at FWW. Cues for hand placement, assist with balance with adjusting hands onto walker, fully relying on LLE for stance, Pt did not feel RLE would support weight and declined further mobility Ambulation Did not assess this session. Outcome Measures AM-PAC How much HELP from another person do you currently need Turning from your back to your side while in a flat bed without using bedrails?: A Little Moving from lying on your back to sitting on the side of a flat bed without using bedrails?: A Little Moving to and from a bed to a chair (including a wheelchair)?: A Lot Standing up from a chair using your arms (wheelchair or bedside chair)?: A Lot Walking in a hospital room?: A Lot Stair climbing assessed?: No AM-PAC Inpatient Mobility Raw Score (No Stairs) : 12 [facility] Score: Static standing (1 or more minutes) Plan Pt would benefit from skilled acute PT services to address Strengthening, Gait Training, Balance Training, Functional Mobility Training, Endurance Training, Safety Education and Training, Stair Training, Equipment Evaluation/Education, Neuromuscular Re-Education Training, and Patient/Caregiver Training. Frequency: 5x/week for 4 weeks Barriers: Pain, Impaired balance, Lower extremity weakness, and Decreased endurance Safety/Education Safety Safety Devices in place: call light within reach, left in bed, gait belt, patient at risk for falls, and nurse notified Restraints: No Education Education Given To: patient Education Provided: PT Role, PT Goals, Plan of Care, Precautions, Transfer Training, Family Education, Equipment, Fall Prevention Education, Discharge Recommendations, and Benefits of Increasing Activity Education Method: Verbal Barriers to Learning: None Education Outcome: Verbalized Understanding Goals Patient Stated Goal: to get strength back in RLE Encounter Problems Encounter Problems (Active) Mobility Patient will ambulate 25 feet with modified independence and least restrictive device in order to improve safety and independence with mobility. Start: 12/03/24 Expected End: 12/31/24 Patient will ascend and descend 6 stairs with least restrictive device and supervision in order to safely negotiate home. Start: 12/03/24 Expected End: 12/31/24 Pain - Adult Transfers Patient will perform bed mobility with modified independence in order to improve independence and prepare for out of bed mobility. Start: 12/03/24 Expected End: 12/31/24 Patient will complete functional transfer with least restrictive device with modified independence in order to prepare for ambulation. Start: 12/03/24 Expected End: 12/31/24 Therapy Time Individual Co-Treatment Co-Evaluation Time In 0820 Time Out 0839 Minutes 19 Timed Code Treatment Minutes: (mod eval) Rosetta Dumont PT Patient's Physical Therapy Plan of Care supervision is transferred to a [facility] Services Physical Therapist. Goals and/or treatment plan was established in collaboration with patient/family/other representatives. [1] Past Medical History: Diagnosis Date Bernard's palsy BPH (benign prostatic hyperplasia) Cancer (CMS/HCC) (HCC) Prostate HTN (hypertension) PAC (premature atrial contraction) 12/02/2024 Pars defect of lumbar spine Prediabetes HbA1C 6 [2] Past Surgical History: Procedure Laterality Date BACK SURGERY 12/02/2024 L5-S1 posterior decompression/fusion BLADDER SURGERY TRANSURETHRAL RESECTION OF PROSTATE 04/2024 Images from the original note were not included. OCCUPATIONAL THERAPY [facility] Name/MRN: Ginger Weldon ([id number]) Date: 12/03/2024 OT attempted but PT working with pt at this time. Will re-attempt as schedule permits. Digna Lomas OTR/L documented in this encounter [facility] 12-07-2024 Miscellaneous Notes Patient Choice Patient Name: GINGER WELDON Date of : 1960 All Providers Sent Referral Name: [facility] Address: [address] [place] [address] Updated notes placed to Rehab [facility] via [facility] per TCC request. [facility] able to accept patient today. Discharge orders noted. Roundtrip utilized for transport. Ginger Ricks to transport at 12pm. [employer] tasked to send MARS. RN, patient, service secretary and [facility] aware of transport time. Problem: Pain - Adult Goal: Verbalizes/displays adequate comfort level or baseline comfort level Outcome: Progressing Problem: Safety - Adult Goal: Free from fall injury Outcome: Progressing Problem: Neurosensory - Adult Goal: Achieves stable or improved neurological status Outcome: Progressing Problem: Musculoskeletal - Adult Goal: Return mobility to safest level of function Outcome: Progressing Goal: Return ADL status to a safe level of function Outcome: Progressing Problem: Knowledge Deficit Goal: Patient/family/caregiver demonstrates understanding of disease process, treatment plan, medications, and discharge instructions Outcome: Progressing Problem: Potential for Compromised Skin Integrity Goal: Skin Integrity is Maintained or Improved Outcome: Progressing Goal: Nutritional status is improving Outcome: Progressing Problem: Urinary Incontinence Goal: Perineal skin integrity is maintained or improved Outcome: Progressing Care Management Progress Note 12/06/24 1302 Rapid Rounds Attendance Game Designer;Physician Planned Discharge Disposition [facility] (Auth obtained and good through 12/11) Today we still await Test results (CBC)- requested from [facility] MD and if results stable they will have a bed for patient Saturday12/07/24 Length of Stay (Days): 4 GMLOS: 2.6 Problem: Pain - Adult Goal: Verbalizes/displays adequate comfort level or baseline comfort level Outcome: Progressing Problem: Safety - Adult Goal: Free from fall injury Outcome: Progressing Problem: Neurosensory - Adult Goal: Achieves stable or improved neurological status Outcome: Progressing Problem: Musculoskeletal - Adult Goal: Return mobility to safest level of function Outcome: Progressing Goal: Return ADL status to a safe level of function Outcome: Progressing Problem: Knowledge Deficit Goal: Patient/family/caregiver demonstrates understanding of disease process, treatment plan, medications, and discharge instructions Outcome: Progressing Problem: Potential for Compromised Skin Integrity Goal: Skin Integrity is Maintained or Improved Outcome: Progressing Goal: Nutritional status is improving Outcome: Progressing Problem: Urinary Incontinence Goal: Perineal skin integrity is maintained or improved Outcome: Progressing Problem: Pain - Adult Goal: Verbalizes/displays adequate comfort level or baseline comfort level Outcome: Progressing Problem: Safety - Adult Goal: Free from fall injury Outcome: Progressing Problem: Neurosensory - Adult Goal: Achieves stable or improved neurological status Outcome: Progressing Problem: Musculoskeletal - Adult Goal: Return mobility to safest level of function Outcome: Progressing Goal: Return ADL status to a safe level of function Outcome: Progressing Problem: Knowledge Deficit Goal: Patient/family/caregiver demonstrates understanding of disease process, treatment plan, medications, and discharge instructions Outcome: Progressing Problem: Potential for Compromised Skin Integrity Goal: Skin Integrity is Maintained or Improved Outcome: Progressing Goal: Nutritional status is improving Outcome: Progressing Problem: Urinary Incontinence Goal: Perineal skin integrity is maintained or improved Outcome: Progressing Case Management Progress Note: Patient remains on H6 s/p L4-S1 decompression with L4-S1 fusion Discharge Plan: [facility], referral sent. Met with pt at bedside, introduced self and explained role of TCC. Pt has insurance with RX coverage, active with PCP. Patient lives with spouse. Patient has one step from the garage into the house. Patient able to stay on first floor. Per Patient currently not able to ambulate well enough to go home. Concerned with foot drop. Patient is agreeable to [facility]. [employer] tasked to make referral. TCC to assist and follow as needed. Referral placed to [facility] via [facility] per TCC request. Await review and response regarding ability to accept. TCC notified. Problem: Pain - Adult Goal: Verbalizes/displays adequate comfort level or baseline comfort level Outcome: Progressing Problem: Safety - Adult Goal: Free from fall injury Outcome: Progressing Problem: Musculoskeletal - Adult Goal: Return mobility to safest level of function Outcome: Progressing Goal: Return ADL status to a safe level of function Outcome: Progressing Problem: Pain - Adult Goal: Verbalizes/displays adequate comfort level or baseline comfort level Outcome: Progressing Flowsheets (Taken 12/02/2024 165) Verbalizes/displays adequate comfort level or baseline comfort level: Encourage patient to monitor pain and request assistance Assess pain using appropriate pain scale Problem: Safety - Adult Goal: Free from fall injury Outcome: Progressing Flowsheets (Taken 12/02/2024 165) Free from fall injury: Based on caregiver fall risk screen, instruct family/caregiver to ask for assistance with transferring if caregiver noted to have fall risk factors Instruct family/caregiver on patient safety Problem: Pain - Adult Goal: Verbalizes/displays adequate comfort level or baseline comfort level Outcome: Progressing Problem: Safety - Adult Goal: Free from fall injury Outcome: Progressing Problem: Musculoskeletal - Adult Goal: Return mobility to safest level of function Outcome: Progressing Goal: Return ADL status to a safe level of function Outcome: Progressing Problem: Pain - Adult Goal: Verbalizes/displays adequate comfort level or baseline comfort level Outcome: Progressing Flowsheets (Taken 12/02/2024 165) Verbalizes/displays adequate comfort level or baseline comfort level: Encourage patient to monitor pain and request assistance Assess pain using appropriate pain scale Problem: Safety - Adult Goal: Free from fall injury Outcome: Progressing Flowsheets (Taken 12/02/2024 2838) Free from fall injury: Based on caregiver fall risk screen, instruct family/caregiver to ask for assistance with transferring if caregiver noted to have fall risk factors Instruct family/caregiver on patient safety Updated patient spouse by phone \Date: 12/02/2024 Location: [facility] OR Name: Ginger Weldon, : 1960, Diagnosis Preoperative diagnosis L5-S1 spondylolisthesis and stenosis Postoperative diagnosis L4-5 and L5-S1 spondylolisthesis and stenosis Procedures L4-S1 decompression, L4-5 and L5-S1 combined posterior lateral and transforaminal interbody fusions, placement of intervertebral expandable titanium cages L4-5 and L5-S1, L4-S1 pedicle screw fixation Surgeons * Charly Kilgore - Primary * James Carrasquillo - Assisting Please note this institution does not have neurosurgical residents or other available personnel to assist. They assisted throughout the procedure in exposure, closure, suction, retraction, irrigation, and instrument cleaning. Procedure Summary Anesthesia: General ASA: III Estimated Blood Loss: 100 mL Drains: 1 epidural drain Closed/Suction Drain Right Back Bulb 10 Fr. (Active) Implants Type Name Action Serial No. Bone BONE BMP PUTTY I-FACTOR 5.0CC - [id number] Implanted Bone BONE BMP PUTTY I-FACTOR 5.0CC - [id number] Implanted Cage Medtronic Interbody Cage, PL40, short, 9mm Implanted Cage Medtronic Interbody cage, pl40, short, 7mm Implanted Spinal Hardware SCREW SPINAL 6.4IFR32SV - [id number] Implanted Spinal Hardware SCREW MULTI-AXIAL STD 7.5X40MM - [id number] Implanted Spinal Hardware SCREW SET TI SPINAL BREAK OFF - [id number] Implanted Spinal Hardware ALEX SPNL CROMALLOY BENT 5.5X60 - [id number] Implanted Staff: Editor Map: Price Franco RN; Everardo Wynn RN Relief Editor Map: Markus Mcnair RN Scrub Person: Annette Marti; Stephanie Chavez LPN Procedure Details: The patient was seen in the preoperative area. The site of surgery was properly noted/marked if necessary per policy. The patient has been actively warmed in preoperative area. Preoperative antibiotics have been ordered and given within 1 hours of incision. Venous thrombosis prophylaxis have been ordered including bilateral sequential compression devices After carefully explaining the risk benefits and alternatives of the procedure informed consent was obtained. Patient was taken to the operating suite and placed under general endotracheal anesthesia. He was positioned prone on the Mckinley table. Lumbar region was prepped and draped in routine sterile fashion. A midline vertical incision was made over the affected segments. The segments were then exposed. Intraoperative fluoroscopy was used. A combination of rongeurs a high-speed drill and Kerrison punches were were then used to perform a laminectomy at the L5 segment followed by laminectomy at the S1 segment. There was significant hypermobility noted upon applying traction to the L4 lamina. There was considerable facet laxity at L4-5. This fact in conjunction with the later noted suboptimal fixation at L5 led to the decision to include L4-5 and the fusion and decompression. As such a laminectomy was then carried out at L4 as well. At each level a central decompression was carried out followed by lateral recess decompression each side which included medial facetectomies and foraminotomies. It was necessary to remove the majority of the facet joints bilaterally at L4-5 and L5-S1 to facilitate adequate lateral recess and foraminal neural decompression. Operative findings included moderate stenosis at L4 severe lateral recess and foraminal stenosis L5 and S1. The stenosis was secondary to multiple factors including grade 2 spondylolisthesis at L5-S1 with bilateral pars defects at L5. There was associated facet hypertrophy at L4-5 and L5-S1 along with redundant ligamentum flavum. At L4-5 there was advanced facet arthropathy with fluid within the facet joints and facet laxity. Following this a left-sided approach was used to perform discectomies at L4-5 and L5-S1 for purposes of transforaminal interbody fusion. Endplate preparation was carried out. Medtronic titanium expandable cages were placed 1 at L4-5 and a second at L5-S1. The cages and intervertebral spaces were packed with locally obtained autograft and I factor bone graft return checker. Following this the transverse processes and sacral ala were decorticated bilaterally L4-S1. Additional locally obtained autograft along with I factor bone graft return checker were applied over the decorticated regions L4-S1. Medtronic pedicle screws were then placed bilaterally at L4-L5 and S1 for total of 6 screws. Suboptimal fixation was noted at L5. Screws are connected with a short alex constructs for rigid fixation. Hemostasis was achieved. An epidural drain was applied and secured at skin exit point with a suture. Marcaine was infused to the tissue planes and the incision was then closed in multiple layers in usual manner. Sterile dressing was applied. The patient tolerated the procedure well without apparent complications. Findings: Stenosis and spondylolisthesis L4-S1 as described above with neural compression Disposition: PACU - hemodynamically stable. Condition: stable documented in this encounter [facility] 12-07-2024 Note Formatting of this n ote might be different from the original. Patient Choice Patient Name: GINGER WELDON Date of : 1960 All Providers Sent Referral Name: [facility] Address: [address] [place] [address] [facility] 12-07-2024 Note Formatting of this n ote might be different from the original. Patient Choice Patient Name: GINGER WELDON Date of : 1960 All Providers Sent Referral Name: [facility] Address: [address] [place] [address] [facility] 12-07-2024 Note Formatting of this n ote might be different from the original. Updated notes placed to [facility] via [facility] per TCC request. [facility] 12-07-2024 Note Formatting of this n ote might be different from the original. Updated notes placed to [facility] via [facility] per TCC request. [facility] 12-07-2024 Note Formatting of this n ote might be different from the original. [facility] able to accept patient today. Discharge orders noted. Roundtrip utilized for transport. Ginger Millicent to transport at 12pm. [facility] tasked to send MARS. RN, patient, service secretary and [facility] aware of transport time. [facility] 12-07-2024 Note Formatting of this n ote might be different from the original. [facility] able to accept patient today. Discharge orders noted. Roundtrip utilized for transport. Ginger Millicent to transport at 12pm. [facility] tasked to send MARS. RN, patient, service secretary and [facility] aware of transport time. T [facility] 12-07-2024 Plan of care note Problem: Pain - Adult Goal: Verbalizes/displays adequate comfort level or baseline comfort level Outcome: Progressing Problem: Safety - Adult Goal: Free from fall injury Outcome: Progressing Problem: Neurosensory - Adult Goal: Achieves stable or improved neurological status Outcome: Progressing Problem: Musculoskeletal - Adult Goal: Return mobility to safest level of function Outcome: Progressing Goal: Return ADL status to a safe level of function Outcome: Progressing Problem: Knowledge Deficit Goal: Patient/family/caregiver demonstrates understanding of disease process, treatment plan, medications, and discharge instructions Outcome: Progressing Problem: Potential for Compromised Skin Integrity Goal: Skin Integrity is Maintained or Improved Outcome: Progressing Goal: Nutritional status is improving Outcome: Progressing Problem: Urinary Incontinence Goal: Perineal skin integrity is maintained or improved Outcome: Progressing T [facility] 12-06-2024 Note Formatting of this n ote is different from the original. Care Management Progress Note 12/06/24 1302 Rapid Rounds Attendance Game Designer;Physician Planned Discharge Disposition [facility] (Auth obtained and good through 12/11) Today we still await Test results (CBC)- requested from [facility] MD and if results stable they will have a bed for patient Saturday12/07/24 Length of Stay (Days): 4 GMLOS: 2.6 [facility] 12-06-2024 Note Formatting of this n ote is different from the original. Care Management Progress Note 12/06/24 1302 Rapid Rounds Attendance Game Designer;Physician Planned Discharge Disposition [facility] (Auth obtained and good through 12/11) Today we still await Test results (CBC)- requested from [facility] and if results stable they will have a bed for patient Saturday12/07/24 Length of Stay (Days): 4 GMLOS: 2.6 [facility] 12-06-2024 Note [facility] 12-06-2024 Hospital course Narrative Discharge Summary Ginger Weldon : 1960 ADMIT DATE: 12/02/2024 DISCHARGE DATE: 12/07/2024 PRIMARY CARE PHYSICIAN: Je Lira VISIT STATUS: Admission CODE STATUS: No Order DISCHARGE DIAGNOSES: Principal Problem: Spondylolisthesis of lumbar region Active Problems: Cancer (CMS/HCC) ([facility]) HOSPITAL COURSE: The patient underwent L4-S1 decompression, L4-5 and L5-S1 combined posterior lateral and transforaminal interbody fusions, placement of intervertebral expandable titanium cages L4-5 and L5-S1, L4-S1 pedicle screw fixation on the day of admission. Post-operatively, the patient was transferred to the PACU in stable condition and then to [facility]. They received 24 hours of prophylactic IV antibiotics. DVT prophylaxis included SCDs and early ambulation. Diet was advanced and able to urinate, and pain was reasonably controlled. Post-op he was noted to have a new right foot drop. CT lumbar spine was obtained that revealed expected post op changes. The weakness was felt to be due to nerve root inflammation and he was started on decadron. The patient progressed well throughout the hospitalization and was deemed stable for discharge to inpatient rehab on the above listed date. SIGNIFICANT DIAGNOSTIC STUDIES: CBC, BMP, CT lumbar spine CONSULTANTS: Internal medicine Acute pain service PT/OT RECOMMENDED NEXT STEPS: Follow up with PCP and Dr Kilgore DISCHARGE MEDICATIONS: Medication List START taking these medications naloxone 4 MG/0.1ML nasal spray Commonly known as: Narcan Administer 1 spray (4 mg) into affected nostril(s) Once for 1 dose. May repeat every 2-3 minutes if needed, alternating nostrils, until medical assistance becomes available. oxyCODONE 10 MG immediate release tablet Commonly known as: Roxicodone Take 1 tablet (10 mg) by mouth every 6 hours as needed for severe pain (7-10) for up to 7 days. tiZANidine 4 MG tablet Commonly known as: Zanaflex Take 1 tablet (4 mg) by mouth every 8 hours as needed for muscle spasms for up to 10 days. CONTINUE taking these medications acetaminophen 325 MG tablet Commonly known as: Tylenol amLODIPine 2.5 MG tablet Commonly known as: Norvasc gabapentin 300 MG capsule Commonly known as: Neurontin TAKE 1 CAPSULE BY MOUTH THREE TIMES DAILY Multi-Vitamin tablet potassium citrate CR 15 MEQ (1620 MG) ER tablet Commonly known as: Urocit-K-15 tamsulosin 0.4 MG 24 hr capsule Commonly known as: Flomax ASK your doctor about these medications amLODIPine-atorvastatin 2.5-10 MG tablet Commonly known as: Caduet Where to Get Your Medications These medications were sent to [facility] [address] [place] [address] Hours: Saturday to Saturday 10 am to 6 pm naloxone 4 MG/0.1ML nasal spray oxyCODONE 10 MG immediate release tablet tiZANidine 4 MG tablet DIET: Adult diet Regular ACTIVITY: No heavy lifting. COMPLEXITY OF FOLLOW UP: [x] Moderate Complexity: follow up within 7-14 calendar days (45032) [] Severe Complexity: follow up within 7 calendar days (81701) FOLLOW UP TESTING, PENDING RESULTS OR REFERRALS AT TRANSITIONAL CARE VISIT: [] Yes [x] No PENDING STUDIES: None DISPOSITION: Acute Rehab FACILITY/HOME CARE AGENCY NAME: [facility] Follow up with Charly Kilgore MD [id number] [facility] [phone] Follow up 12/15/2024 at 2:45 PM for staple removal INSTRUCTIONS TO MA/SW: Please call patient on day after discharge (must document patient contacted within 2 business days of discharge). FOLLOW UP QUESTIONS FOR MA/SW: 1. Did you get medications filled and taking them as instructed from discharge? 2. Are you following your discharge instructions from your hospital stay? 3. Please confirm patient is scheduled for a follow up appointment within the above time frame. DISCHARGE TIME: < 30 minutes SIGNED: Ryne Brown PA-C 12/06/2024, 9:37 AM Cosigned by Charly Kilgore MD at 12/07/2024 2:39 PM EDT documented in this encounter [facility] 12-05-2024 Plan of care note Problem: Pain - Adult Goal: Verbalizes/displays adequate comfort level or baseline comfort level Outcome: Progressing Problem: Safety - Adult Goal: Free from fall injury Outcome: Progressing Problem: Neurosensory - Adult Goal: Achieves stable or improved neurological status Outcome: Progressing Problem: Musculoskeletal - Adult Goal: Return mobility to safest level of function Outcome: Progressing Goal: Return ADL status to a safe level of function Outcome: Progressing Problem: Knowledge Deficit Goal: Patient/family/caregiver demonstrates understanding of disease process, treatment plan, medications, and discharge instructions Outcome: Progressing Problem: Potential for Compromised Skin Integrity Goal: Skin Integrity is Maintained or Improved Outcome: Progressing Goal: Nutritional status is improving Outcome: Progressing Problem: Urinary Incontinence Goal: Perineal skin integrity is maintained or improved Outcome: Progressing T [facility] 12-04-2024 Plan of care note Problem: Pain - Adult Goal: Verbalizes/displays adequate comfort level or baseline comfort level Outcome: Progressing Problem: Safety - Adult Goal: Free from fall injury Outcome: Progressing Problem: Neurosensory - Adult Goal: Achieves stable or improved neurological status Outcome: Progressing Problem: Musculoskeletal - Adult Goal: Return mobility to safest level of function Outcome: Progressing Goal: Return ADL status to a safe level of function Outcome: Progressing Problem: Knowledge Deficit Goal: Patient/family/caregiver demonstrates understanding of disease process, treatment plan, medications, and discharge instructions Outcome: Progressing Problem: Potential for Compromised Skin Integrity Goal: Skin Integrity is Maintained or Improved Outcome: Progressing Goal: Nutritional status is improving Outcome: Progressing Problem: Urinary Incontinence Goal: Perineal skin integrity is maintained or improved Outcome: Progressing T [facility] 12-04-2024 Note Formatting of this n ote might be different from the original. Case Management Progress Note: Patient remains on H6 s/p L4-S1 decompression with L4-S1 fusion Discharge Plan: [facility], referral sent. Met with pt at bedside, introduced self and explained role of TCC. Pt has insurance with RX coverage, active with PCP. Patient lives with spouse. Patient has one step from the garage into the house. Patient able to stay on first floor. Per Patient currently not able to ambulate well enough to go home. Concerned with foot drop. Patient is agreeable to [facility]. [employer] tasked to make referral. TCC to assist and follow as needed. [facility] 12-04-2024 Note Formatting of this n ote might be different from the original. Case Management Progress Note: Patient remains on H6 s/p L4-S1 decompression with L4-S1 fusion Discharge Plan: [facility], referral sent. Met with pt at bedside, introduced self and explained role of TCC. Pt has insurance with RX coverage, active with PCP. Patient lives with spouse. Patient has one step from the garage into the house. Patient able to stay on first floor. Per Patient currently not able to ambulate well enough to go home. Concerned with foot drop. Patient is agreeable to [facility]. [employer] tasked to make referral. TCC to assist and follow as needed. [facility] 12-04-2024 Note Formatting of this n ote might be different from the original. Referral placed to [facility] via [facility] per TCC request. Await review and response regarding ability to accept. TCC notified. [facility] 12-04-2024 Note Formatting of this n ote might be different from the original. Referral placed to [facility] via [facility] per TCC request. Await review and response regarding ability to accept. TCC notified. [facility] 12-04-2024 Note Referral placed to [facility] via [facility] per TCC request. Await review and response regarding ability to accept. TCC notified. [facility] 12-04-2024 Plan of care note Problem: Pain - Adult Goal: Verbalizes/displays adequate comfort level or baseline comfort level Outcome: Progressing Problem: Safety - Adult Goal: Free from fall injury Outcome: Progressing Problem: Musculoskeletal - Adult Goal: Return mobility to safest level of function Outcome: Progressing Goal: Return ADL status to a safe level of function Outcome: Progressing T [facility] 12-03-2024 Note Patient declined smo tiff cessation counseling. Accepting of handout with contact information for future reference. [facility] 12-03-2024 Plan of care note Problem: Pain - Adult Goal: Verbalizes/displays adequate comfort level or baseline comfort level Outcome: Progressing Flowsheets (Taken 12/02/2024 1659) Verbalizes/displays adequate comfort level or baseline comfort level: Encourage patient to monitor pain and request assistance Assess pain using appropriate pain scale Problem: Safety - Adult Goal: Free from fall injury Outcome: Progressing Flowsheets (Taken 12/02/2024 1659) Free from fall injury: Based on caregiver fall risk screen, instruct family/caregiver to ask for assistance with transferring infant if caregiver noted to have fall risk factors Instruct family/caregiver on patient safety T [facility] 12-03-2024 Plan of care note Problem: Pain - Adult Goal: Verbalizes/displays adequate comfort level or baseline comfort level Outcome: Progressing Problem: Safety - Adult Goal: Free from fall injury Outcome: Progressing Problem: Musculoskeletal - Adult Goal: Return mobility to safest level of function Outcome: Progressing Goal: Return ADL status to a safe level of function Outcome: Progressing T [facility] 12-03-2024 Nurse Note Patient and notified this RN of new onset numbness in right foot. Patient stated before surgery there was pain and weakness in the left leg, but now it has transferred to right leg. Patient able to bend knee but not able to lift leg fully due to heaviness of right foot. Patient stated he has sensation above ankle. Plantar flexion is present bilaterally. Dorsiflexion not present bilaterally. Dr. Kilgore notified in regards to change in patient status. This RN spoke to Dr. Kilgore over phone and new order placed for Decadron IV. [facility] 12-03-2024 Nurse Note Patient and notified this RN of new onset numbness in right foot. Patient stated before surgery there was pain and weakness in the left leg, but now it has transferred to right leg. Patient able to bend knee but not able to lift leg fully due to heaviness of right foot. Patient stated he has sensation above ankle. Plantar flexion is present bilaterally. Dorsiflexion not present bilaterally. Dr. Kilgore notified in regards to change in patient status. This RN spoke to Dr. Kilgore over phone and new order placed for Decadron IV. documented in this encounter [facility] 12-02-2024 Consult note Associated Order (s): IP CONSULT TO HOSPITALIST Images from the original note were not included. Hospital Medicine Consult Patient - Ginger Weldon, Age - 63 y.o. - 1960 Room Number - @ROOMBEDREFRESH@ Consulting - Charly Kilgore MD Primary Care Physician - Je Lira Date of Admission - 12/02/2024 8:12 AM Hospital Day - 0 Reason for Consult: Medical Management HISTORY OF PRESENT ILLNESS: Ginger is a 63 y.o. male pmhx hypertension, neuropathy, pars defect lumbar spine, BPH, lumbar L5-S1 spondylolisthesis and stenosis admitted for elective L4-S1 decompression, combined posterior lateral and transforaminal interbody fusions, placement of intervertebral expandable titanium cages L4-L5, L5-S1, pedicle screw fixation Internal medicine service consulted for med management Patient just got back from the OR. Tolerated diet. Pain manageable Blood pressure stable, satting 93% on 2 L Past Medical History: Medical History[1] Past Surgical History: Surgical History[2] Medications: Scheduled Meds[3] Continuous Meds[4] PRN Meds[5] Allergies: Patient has no known allergies. Social History: Social History Socioeconomic History Marital status: Spouse name: Not on file Number of children: Not on file Years of education: Not on file Highest education level: Not on file Occupational History Not on file Tobacco Use Smoking status: Every Day Types: Cigarettes Smokeless tobacco: Never Substance and Sexual Activity Alcohol use: Not on file Drug use: Never Sexual activity: Not on file Other Topics Concern Not on file Social History Narrative Not on file Social Drivers of Health Financial Resource Strain: Low Risk (06/07/2022) Received from [facility] Overall Financial Resource Strain (CARDIA) Difficulty of Paying Living Expenses: Not hard at all Food Insecurity: No Food Insecurity (06/07/2022) Received from [facility] Hunger Vital Sign Worried About Running Out of Food in the Last Year: Never true Ran Out of Food in the Last Year: Never true Transportation Needs: No Transportation Needs (12/02/2024) PRAPARE - Transportation Lack of Transportation (Medical): No Lack of Transportation (Non-Medical): No Physical Activity: Not on file Stress: Not on file Social Connections: Unknown (03/05/2019) Received from [facility] Social Connection and Isolation Panel [NHANES] Frequency of Communication with Friends and Family: Once a week Frequency of Social Gatherings with Friends and Family: Once a week Attends Congregational Services: Not on file Active Member of Clubs or Organizations: Not on file Attends Club or Organization Meetings: Not on file Marital Status: Not on file Intimate Partner Violence: Not At Risk (12/02/2024) Humiliation, Afraid, Rape, and Kick questionnaire Fear of Current or Ex-Partner: No Emotionally Abused: No Physically Abused: No Sexually Abused: No Housing Stability: Unknown (12/02/2024) Housing Stability Vital Sign Unable to Pay for Housing in the Last Year: No Number of Times Moved in the Last Year: Not on file Homeless in the Last Year: No Family History: @FAMHXNH@ REVIEW OF SYSTEMS: 10 point ROS obtained, as per HPI, otherwise NEG Physical Exam: Vitals: BP 133/64 Pulse 67 Temp 36.6 C (97.8 F) (Temporal) Resp 16 SpO2 93% BMI Classification: Morbidly Obese (>40.0) Pulse Ox: SpO2 Av.8 % Min: 93 % Max: 98 % Supplemental O2: O2 Flow Rate (L/min): 2 L/min General appearance: No apparent distress, appears stated age and cooperative with exam. HEENT: Eyes: No scleral icterus,no pallor, awake alert oriented x 4 Oral: Tongue is semi-moist Cardiovascular: S1/S2 heard, RRR Respiratory: Clear to auscultation bilaterally Abdomen: Soft, non-tender, non-distended bowel sounds positive,no mass palpable LABS: CBC: No results for input(s): WBC, RBC, HGB, HCT, MCV, RDW, PLT in the last 72 hours. BMP:@LABRCNT(NA:3,K:3,CL:3,CO2:3 ,BUN:3,CREATININE:3,GLUCOSE:3,CA LCIUM :3,ANIONGAP:3)@ LIVER PROFILE:No results for input(s): AST, ALT, BILITOT, ALKPHOS, PROT in the last 72 hours. No lab exists for component: LABALBU PT/INR: No results for input(s): PROTIME, INR in the last 72 hours. CARDIAC ENZYMES: No results for input(s): TROPONINI in the last 72 hours. Procalcitonin: No results found for: PROCAL Urine Culture: No results found for this or any previous visit. @RISRSLTSPECIALTY@ IMAGING: See report Assessment Acute, acute on chronic, unstable/uncontrolled chronic problems/diagnoses: L5-S1 spondylolisthesis and stenosis s/p L4-decompression, placement of intervertebral expandable titanium cages, L4-S1 pedicle screw fixation Stable chronic problems affecting care, new non-acute diagnoses: Hypertension BPH Neuropathy History of prostate cancer s/p radiation in 2021 History of basal cell cancer Plan Pain control per primary/neurosurgery SCD for DVT prophylaxis Monitor hemoglobin postoperatively Labs ordered for AM Encourage early ambulation, incentive spirometer DVT/GI prophylaxis Home medication was restarted Blood pressure stable Wean off oxygen as tolerated PT, OT Patient was informed about all work-up treatment plan Discussed with nursing staff -see below for additional orders; further recommendations to follow Orders Placed This Encounter Procedures FL GUIDANCE OR USE ONLY - NON RESULTABLE Potassium with Mg Reflex Protime-INR Potassium Basic metabolic panel CBC auto differential Adult diet Regular Vital Signs Place sequential compression device Activity No Restrictions; Activity as tolerated Neurovascular checks Drain Suction Instructions Insert indwelling urinary catheter Remove indwelling urinary catheter per Nurse Driven Protocol Bladder scan Straight cath Inpatient consult to Hospitalist--[facility]; medical management post op lumbar fusion Inpatient consult to Anesthesiology - Acute Pain Service--ANESTHESIA - ACUTE PAIN SERVICE OT eval and treat PT eval and treat Initiate Oxygen Therapy Protocol Admit to inpatient CAUTI Precautions Thank you for allowing us to participate in the care and management of this patient. NOTE: This report was transcribed using voice recognition software. Every effort was made to ensure accuracy; however, inadvertent computerized payroll administrator errors may be present. Tawnya Mccullough MD, MD Division of Hospitalist Medicine [facility] [1] Past Medical History: Diagnosis Date Bernard's palsy BPH (benign prostatic hyperplasia) Cancer (CMS/HCC) (HCC) Prostate HTN (hypertension) PAC (premature atrial contraction) 12/02/2024 Pars defect of lumbar spine Prediabetes HbA1C 6 [2] Past Surgical History: Procedure Laterality Date BACK SURGERY 12/02/2024 L5-S1 posterior decompression/fusion BLADDER SURGERY TRANSURETHRAL RESECTION OF PROSTATE 04/2024 [3] acetaminophen, 1,000 mg, Oral, q8h [START ON 12/03/2024] amLODIPine, 2.5 mg, Oral, Daily ceFAZolin, 2,000 mg, IntraVENous, q8h gabapentin, 300 mg, Oral, TID magnesium hydroxide, 30 mL, Oral, BID potassium chloride CR, 15 mEq, Oral, Daily sodium chloride 0.9%, 10 mL, IntraVENous, 2 times per day [START ON 12/03/2024] tamsulosin, 0.4 mg, Oral, Daily [4] lactated Ringer's, 50 mL/hr, Last Rate: 50 mL/hr (12/02/24 1240) [5] PRN medications: HYDROmorphone OR HYDROmorphone, naloxone, ondansetron ODT OR ondansetron, oxyCODONE OR oxyCODONE, sodium chloride, sodium chloride 0.9%, tiZANidine [place] Phone: 12-02-2024 Consult note Associated Order (s): IP CONSULT TO HOSPITALIST Images from the original note were not included. Hospital Medicine Consult Patient - Ginger Weldon, Age - 63 y.o. - 1960 Room Number - @ROOMBEDREFRESH@ Consulting - Charly Kilgore MD [id number] Date of Admission - 12/02/2024 8:12 AM Hospital Day - 0 Reason for Consult: Medical Management HISTORY OF PRESENT ILLNESS: Ginger is a 63 y.o. male pmhx hypertension, neuropathy, pars defect lumbar spine, BPH, lumbar L5-S1 spondylolisthesis and stenosis admitted for elective L4-S1 decompression, combined posterior lateral and transforaminal interbody fusions, placement of intervertebral expandable titanium cages L4-L5, L5-S1, pedicle screw fixation Internal medicine service consulted for med management Patient just got back from the OR. Tolerated diet. Pain manageable Blood pressure stable, satting 93% on 2 L Past Medical History: Medical History[1] Past Surgical History: Surgical History[2] Medications: Scheduled Meds[3] Continuous Meds[4] PRN Meds[5] Allergies: Patient has no known allergies. Social History: Social History Socioeconomic History Marital status: Spouse name: Not on file Number of children: Not on file Years of education: Not on file Highest education level: Not on file Occupational History Not on file Tobacco Use Smoking status: Every Day Types: Cigarettes Smokeless tobacco: Never Substance and Sexual Activity Alcohol use: Not on file Drug use: Never Sexual activity: Not on file Other Topics Concern Not on file Social History Narrative Not on file Social Drivers of Health Financial Resource Strain: Low Risk (06/07/2022) Received from [facility] Overall Financial Resource Strain (CARDIA) Difficulty of Paying Living Expenses: Not hard at all Food Insecurity: No Food Insecurity (06/07/2022) Received from [facility] Hunger Vital Sign Worried About Running Out of Food in the Last Year: Never true Ran Out of Food in the Last Year: Never true Transportation Needs: No Transportation Needs (12/02/2024) PRAPARE - Transportation Lack of Transportation (Medical): No Lack of Transportation (Non-Medical): No Physical Activity: Not on file Stress: Not on file Social Connections: Unknown (03/05/2019) Received from [facility] Social Connection and Isolation Panel [NHANES] Frequency of Communication with Friends and Family: Once a week Frequency of Social Gatherings with Friends and Family: Once a week Attends Congregational Services: Not on file Active Member of Clubs or Organizations: Not on file Attends Club or Organization Meetings: Not on file Marital Status: Not on file Intimate Partner Violence: Not At Risk (12/02/2024) Humiliation, Afraid, Rape, and Kick questionnaire Fear of Current or Ex-Partner: No Emotionally Abused: No Physically Abused: No Sexually Abused: No Housing Stability: Unknown (12/02/2024) Housing Stability Vital Sign Unable to Pay for Housing in the Last Year: No Number of Times Moved in the Last Year: Not on file Homeless in the Last Year: No Family History: @FAMHXNH@ REVIEW OF SYSTEMS: 10 point ROS obtained, as per HPI, otherwise NEG Physical Exam: Vitals: BP 133/64 Pulse 67 Temp 36.6 C (97.8 F) (Temporal) Resp 16 SpO2 93% BMI Classification: Morbidly Obese (>40.0) Pulse Ox: SpO2 Av.8 % Min: 93 % Max: 98 % Supplemental O2: O2 Flow Rate (L/min): 2 L/min General appearance: No apparent distress, appears stated age and cooperative with exam. HEENT: Eyes: No scleral icterus,no pallor, awake alert oriented x 4 Oral: Tongue is semi-moist Cardiovascular: S1/S2 heard, RRR Respiratory: Clear to auscultation bilaterally Abdomen: Soft, non-tender, non-distended bowel sounds positive,no mass palpable LABS: CBC: No results for input(s): WBC, RBC, HGB, HCT, MCV, RDW, PLT in the last 72 hours. BMP:@LABRCNT(NA:3,K:3,CL:3,CO2:3 ,BUN:3,CREATININE:3,GLUCOSE:3,CA LCIUM :3,ANIONGAP:3)@ LIVER PROFILE:No results for input(s): AST, ALT, BILITOT, ALKPHOS, PROT in the last 72 hours. No lab exists for component: LABALBU PT/INR: No results for input(s): PROTIME, INR in the last 72 hours. CARDIAC ENZYMES: No results for input(s): TROPONINI in the last 72 hours. Procalcitonin: No results found for: PROCAL Urine Culture: No results found for this or any previous visit. @RISRSLTSPECIALTY@ IMAGING: See report Assessment Acute, acute on chronic, unstable/uncontrolled chronic problems/diagnoses: L5-S1 spondylolisthesis and stenosis s/p L4-decompression, placement of intervertebral expandable titanium cages, L4-S1 pedicle screw fixation Stable chronic problems affecting care, new non-acute diagnoses: Hypertension BPH Neuropathy History of prostate cancer s/p radiation in 2021 History of basal cell cancer Plan Pain control per primary/neurosurgery SCD for DVT prophylaxis Monitor hemoglobin postoperatively Labs ordered for AM Encourage early ambulation, incentive spirometer DVT/GI prophylaxis Home medication was restarted Blood pressure stable Wean off oxygen as tolerated PT, OT Patient was informed about all work-up treatment plan Discussed with nursing staff -see below for additional orders; further recommendations to follow Orders Placed This Encounter Procedures FL GUIDANCE OR USE ONLY - NON RESULTABLE Potassium with Mg Reflex Protime-INR Potassium Basic metabolic panel CBC auto differential Adult diet Regular Vital Signs Place sequential compression device Activity No Restrictions; Activity as tolerated Neurovascular checks Drain Suction Instructions Insert indwelling urinary catheter Remove indwelling urinary catheter per Nurse Driven Protocol Bladder scan Straight cath Inpatient consult to Hospitalist--[facility]; medical management post op lumbar fusion Inpatient consult to Anesthesiology - Acute Pain Service--ANESTHESIA - ACUTE PAIN SERVICE OT eval and treat PT eval and treat Initiate Oxygen Therapy Protocol Admit to inpatient CAUTI Precautions Thank you for allowing us to participate in the care and management of this patient. NOTE: This report was transcribed using voice recognition software. Every effort was made to ensure accuracy; however, inadvertent computerized payroll administrator errors may be present. Tawnya Mccullough MD, MD Division of Hospitalist Medicine [facility] [1] Past Medical History: Diagnosis Date Bernard's palsy BPH (benign prostatic hyperplasia) Cancer (CMS/HCC) (HCC) Prostate HTN (hypertension) PAC (premature atrial contraction) 12/02/2024 Pars defect of lumbar spine Prediabetes HbA1C 6 [2] Past Surgical History: Procedure Laterality Date BACK SURGERY 12/02/2024 L5-S1 posterior decompression/fusion BLADDER SURGERY TRANSURETHRAL RESECTION OF PROSTATE 04/2024 [3] acetaminophen, 1,000 mg, Oral, q8h [START ON 12/03/2024] amLODIPine, 2.5 mg, Oral, Daily ceFAZolin, 2,000 mg, IntraVENous, q8h gabapentin, 300 mg, Oral, TID magnesium hydroxide, 30 mL, Oral, BID potassium chloride CR, 15 mEq, Oral, Daily sodium chloride 0.9%, 10 mL, IntraVENous, 2 times per day [START ON 12/03/2024] tamsulosin, 0.4 mg, Oral, Daily [4] lactated Ringer's, 50 mL/hr, Last Rate: 50 mL/hr (12/02/24 1240) [5] PRN medications: HYDROmorphone OR HYDROmorphone, naloxone, ondansetron ODT OR ondansetron, oxyCODONE OR oxyCODONE, sodium chloride, sodium chloride 0.9%, tiZANidine documented in this encounter [facility] 12-02-2024 Plan of care note Problem: Pain - Adult Goal: Verbalizes/displays adequate comfort level or baseline comfort level Outcome: Progressing Flowsheets (Taken 12/02/2024 165) Verbalizes/displays adequate comfort level or baseline comfort level: Encourage patient to monitor pain and request assistance Assess pain using appropriate pain scale Problem: Safety - Adult Goal: Free from fall injury Outcome: Progressing Flowsheets (Taken 12/02/2024 165) Free from fall injury: Based on caregiver fall risk screen, instruct family/caregiver to ask for assistance with transferring infant if caregiver noted to have fall risk factors Instruct family/caregiver on patient safety [facility] 12-02-2024 Hospital Discharge instructions Ryne Brown PA-C - 12/02/2024 2:35 PM EDT Wound care: Keep incision open to air, do not apply creams or lotions to incision You may shower, but do not soak incision in a tub or pool Call the office immediately if you notice any drainage, pus, or signs of infection General Instructions: No lifting greater than 10 pounds for [address] while using opioid pain medications or muscle relaxants Limit twisting, turning, and bending motions at the waist Avoid NSAIDs such as Ibuprofen, Advil, Aleve, Naproxen, and Mobic Avoid nicotine in all forms Pain medication may constipate you requiring strong laxatives such as milk of magnesia or magnesium citrate Adequate Vitamin D3 and calcium in your diet are recommended for healing of fusion Follow up with Dr. Kilgore on 12/15/2024 at 2:45 PM for staple removal Call the office with any questions or concerns, Evy Gamboa RN - 12/04/2024 1:53 PM EDT Images from the original note were not included. Continuity of Care Form Patient Name: Ginger Weldon : 1960 Admit date: 12/02/2024 Discharge date: Code Status Order: No Order Advance Directives: N Admitting Physician: Charly Kilgore MD PCP: Je Lira Discharging Nurse: Discharging Hospital Unit/Room#: H-6104/H-6104 A Discharging Unit Phone Number: Emergency Contact: Extended Emergency Contact Information Primary Emergency Contact: Claudia Weldon [address]: [address] [place] [address] of [facility] Mobile Relation: Spouse Past Surgical History: Past Surgical History: Procedure Laterality Date BACK SURGERY 12/02/2024 L5-S1 posterior decompression/fusion BLADDER SURGERY TRANSURETHRAL RESECTION OF PROSTATE 04/2024 Immunization History: There is no immunization history on file for this patient. Active Problems: Medical Problems Problem List * (Principal) Spondylolisthesis of lumbar region Adenocarcinoma of prostate (HCC) Overview Signed 10/28/2024 2:29 PM by Dakota Sommers MA Last Assessment & Plan: History of T1 cN0 M0, PSA 27, Isadora 5+4 prostate cancer. Negative metastatic work-up. He got neoadjuvant hormonal therapy followed by radiation therapy that he completed in September 2022. The plan is for 2 years of adjuvant hormonal therapy. His last Lupron injection was 3 months ago and the PSA is now down to 0.09. He will be due for another Lupron shot in 3 months and will return at that time. Thus far has had an excellent response to treatment. BESSIE (acute kidney injury) (HCC) Basal cell carcinoma (BCC) of skin of face Benign prostatic hyperplasia with urinary retention Overview Signed 10/28/2024 2:29 PM by Dakota Sommers MA Last Assessment & Plan: 04/20/2022 1320 Scheduled Florian Whitt MD CYSTOSCOPY, URETHERAL DILATION, PROSTATE ULTRASOUND AND PROSTATE BIOPSY NEEDLE BIOPSY PROSTATE Chronic symptoms of BPH and retention. PSA is elevated. Calculus of urinary bladder Overview Signed 10/28/2024 2:29 PM by Dakota Sommers MA Surgical removal Clubbing of nails Elevated blood-pressure reading, without diagnosis of hypertension Elevated PSA Overview Signed 10/28/2024 2:29 PM by Dakota Sommers MA Last Assessment & Plan: PSA is 23 and prostate exam is highly suspicious for prostate cancer with a enlarged hard and nodular prostate. We are going to plan prostate biopsy. I am going to repeat his PSA since the most recent one was 3 months ago. Foot pain, bilateral Hypertension Overview Signed 10/28/2024 2:29 PM by Dakota Sommers MA Last Assessment & Plan: BP is reasonably controlled at this office visit, 132/72. Pt has been advised to take amlodipine the morning of surgery with a small sip of water. Hypoxia Insomnia Overview Signed 10/28/2024 2:29 PM by Dakota Sommers MA Last Assessment & Plan: We will give him a trial of Ambien to see if helping him sleep a bit better will decrease some of his nocturia at least. Nicotine dependence Nocturia Nodular prostate Renal insufficiency Stricture of male urethra Suspected sleep apnea Urinary frequency Urinary hesitancy Urinary retention Urinary retention with incomplete bladder emptying Cancer (CMS/HCC) (HCC) Isolation/Infection: No active isolations No active infections Nurse Assessment: Last Vital Signs: BP 137/69 (BP Location: Right arm, Patient Position: Sitting) Pulse 60 Temp 37.2 C (99 F) (Temporal) Resp 21 SpO2 96% Last documented pain score (0-10 scale): Last Weight: Wt Readings from Last 1 Encounters: 10/29/24 194 lb (88 kg) Mental Status: {DWAINE Patient Mental Status:83819} IV Access: {DWAINE IV Access:54846} Nursing Mobility/ADLs: Walking {HO ADL:::Independent} Transfer {HO ADL:::Independent} Bathing {HO ADL:::Independent} Dressing {HO ADL:::Independent} Toileting {HO ADL:::Independent} Feeding {HO ADL:::Independent} Mdm Sr {HO ADL:::Independent} Med Delivery {yes/no:92094} Wound Care Documentation and Therapy: Wound/Incision 12/02/24 Incision Back Lower;Midline (Active) Site Assessment Unable to assess 12/04/24 0840 Drainage Amount None 12/03/24 2045 Primary Dressing Gauze;Special tape 12/04/24 0840 Dressing Status Clean, dry & intact 12/04/24 0840 Number of days: 2 Elimination: Continence: Bowel: {yes/no:35385} Bladder: {yes/no:73304} Urinary Catheter: {DWAINE Urinary Catheter:89417} Colostomy/Ileostomy/Ileal Conduit: {YES / NO:} Date of Last BM: Intake/Output Summary (Last 24 hours) at 12/04/2024 1353 Last data filed at 12/04/2024 0536 Gross per 24 hour Intake -- Output 115 ml Net -115 ml I/O last 3 completed shifts: In: - Out: 235 [Drains:235] Safety Concerns: {DWAINE Safety Concerns:34259} Impairments/Disabilities: {DWAINE Impairments/Disabilities:73265} Nutrition Therapy: Current Nutrition Therapy: {DWAINE Diet List:86562} Routes of Feeding: {routes of feedin} Liquids: {liquid consistency:44058} Daily Fluid Restriction: {daily fluid restriction:32720} Last Modified Barium Swallow with Video (Video Swallowing Test): {done not done:67062} Treatments at the Time of Hospital Discharge: Respiratory Treatments: Oxygen Therapy: {Therapy; copd oxygen:22587} Ventilator: {DWAINE Ventilator:63963} Rehab Therapies: {GEN THERAPY DISCIPLINE SCAL:8096607} Weight Bearing Status/Restrictions: {POD WEIGHT BEARIN} Other Medical Equipment (for information only, NOT a DME order): {Assistive Devices DME:81911} Other Treatments: Patient's personal belongings (please select all that are sent with patient): {DWAINE Patient Belongings:94014} RN SIGNATURE: {E-signature:52969} CASE MANAGEMENT/SOCIAL WORK SECTION Inpatient Status Date: 12/02/2024 Discharging to Facility/ Agency Name: [facility] Address: [address] [place] [id number] Phone: Fax: Dialysis Facility (if applicable) Name: Address: Dialysis Schedule: Phone: Fax: Game Designer/Tooling Engineer signature: ICIAN SECTION Name: Ginger Weldon Prognosis: good Condition at Discharge: stable Rehab Potential (if transferring to Rehab): good Recommended Labs or Other Treatments After Discharge: Follow up with Dr. Kilgore on 12/15/2024 at 2:45 PM for staple removal or clark should be removed in rehab on 12/15/24. The individual is being admitted to a nursing facility directly from an [facility] or a unit of a [facility] that is not operated by or licensed by [facility] under section 5119.14 or 5160-3-15.1 5 The individual requires the level of services provided by a nursing facility for the condition for which he or she was treated in the hospital and, Physician Certification: I certify the above information and transfer of Ginger Weldon is necessary for the continuing treatment of the diagnosis listed and that he requires acute rehab for less than 30 days. Update Admission H&P: No change in H&P PHYSICIAN SIGNATURE: documented in this encounter [facility] 12-02-2024 Procedure note Updated patient spouse by phone [facility] 12-02-2024 Note [facility] 12-02-2024 Procedure note \Date: 12/02/2024 Location: [facility] OR Name: Ginger Weldon, : 1960, Diagnosis Preoperative diagnosis L5-S1 spondylolisthesis and stenosis Postoperative diagnosis L4-5 and L5-S1 spondylolisthesis and stenosis Procedures L4-S1 decompression, L4-5 and L5-S1 combined posterior lateral and transforaminal interbody fusions, placement of intervertebral expandable titanium cages L4-5 and L5-S1, L4-S1 pedicle screw fixation Surgeons * Charly Kilgore - Primary * James Carrasquillo - Assisting Please note this institution does not have neurosurgical residents or other available personnel to assist. They assisted throughout the procedure in exposure, closure, suction, retraction, irrigation, and instrument cleaning. Procedure Summary Anesthesia: General ASA: III Estimated Blood Loss: 100 mL Drains: 1 epidural drain Closed/Suction Drain Right Back Bulb 10 Fr. (Active) Implants Type Name Action Serial No. Bone BONE BMP PUTTY I-FACTOR 5.0CC - [id number] Implanted Bone BONE BMP PUTTY I-FACTOR 5.0CC - [id number] Implanted Cage Medtronic Interbody Cage, PL40, short, 9mm Implanted Cage Medtronic Interbody cage, pl40, short, 7mm Implanted Spinal Hardware SCREW SPINAL 6.8SRQ86KJ - [id number] Implanted Spinal Hardware SCREW MULTI-AXIAL STD 7.5X40MM - [id number] Implanted Spinal Hardware SCREW SET TI SPINAL BREAK OFF - [id number] Implanted Spinal Hardware ALEX SPNL CROMALLOY BENT 5.5X60 - [id number] Implanted Staff: Editor Map: Price Franco RN; Everardo Wynn RN Relief Editor Map: Markus Mcnair RN Scrub Person: Annette Marti; Stephanie Chavez LPN Procedure Details: The patient was seen in the preoperative area. The site of surgery was properly noted/marked if necessary per policy. The patient has been actively warmed in preoperative area. Preoperative antibiotics have been ordered and given within 1 hours of incision. Venous thrombosis prophylaxis have been ordered including bilateral sequential compression devices After carefully explaining the risk benefits and alternatives of the procedure informed consent was obtained. Patient was taken to the operating suite and placed under general endotracheal anesthesia. He was positioned prone on the Mckinley table. Lumbar region was prepped and draped in routine sterile fashion. A midline vertical incision was made over the affected segments. The segments were then exposed. Intraoperative fluoroscopy was used. A combination of rongeurs a high-speed drill and Kerrison punches were were then used to perform a laminectomy at the L5 segment followed by laminectomy at the S1 segment. There was significant hypermobility noted upon applying traction to the L4 lamina. There was considerable facet laxity at L4-5. This fact in conjunction with the later noted suboptimal fixation at L5 led to the decision to include L4-5 and the fusion and decompression. As such a laminectomy was then carried out at L4 as well. At each level a central decompression was carried out followed by lateral recess decompression each side which included medial facetectomies and foraminotomies. It was necessary to remove the majority of the facet joints bilaterally at L4-5 and L5-S1 to facilitate adequate lateral recess and foraminal neural decompression. Operative findings included moderate stenosis at L4 severe lateral recess and foraminal stenosis L5 and S1. The stenosis was secondary to multiple factors including grade 2 spondylolisthesis at L5-S1 with bilateral pars defects at L5. There was associated facet hypertrophy at L4-5 and L5-S1 along with redundant ligamentum flavum. At L4-5 there was advanced facet arthropathy with fluid within the facet joints and facet laxity. Following this a left-sided approach was used to perform discectomies at L4-5 and L5-S1 for purposes of transforaminal interbody fusion. Endplate preparation was carried out. Medtronic titanium expandable cages were placed 1 at L4-5 and a second at L5-S1. The cages and intervertebral spaces were packed with locally obtained autograft and I factor bone graft return checker. Following this the transverse processes and sacral ala were decorticated bilaterally L4-S1. Additional locally obtained autograft along with I factor bone graft return checker were applied over the decorticated regions L4-S1. Medtronic pedicle screws were then placed bilaterally at L4-L5 and S1 for total of 6 screws. Suboptimal fixation was noted at L5. Screws are connected with a short alex constructs for rigid fixation. Hemostasis was achieved. An epidural drain was applied and secured at skin exit point with a suture. Marcaine was infused to the tissue planes and the incision was then closed in multiple layers in usual manner. Sterile dressing was applied. The patient tolerated the procedure well without apparent complications. Findings: Stenosis and spondylolisthesis L4-S1 as described above with neural compression Disposition: PACU - hemodynamically stable. Condition: stable [facility] 12-02-2024 History and physical note There are no changes noted in the H&P. H&P was reverified. Please see the media tab. H&P was performed by primary care physician and is dated December 01, 2024. [facility] 12-02-2024 Note There are no changes noted in the H&P. H&P was reverified. Please see the media tab. H&P was performed by primary care physician and is dated December 01, 2024. [facility] 12-02-2024 History and physical note There are no changes noted in the H&P. H&P was reverified. Please see the media tab. H&P was performed by primary care physician and is dated December 01, 2024. documented in this encounter [facility] 12-01-2024 History of Present illness Narrative Images from the original note were not included. CHIEF COMPLAINT Cardiac risk stratification HISTORY OF PRESENT ILLNESS Ginger Weldon is a 63-year-old male with a history of HTN, BPH, and pars defect of lumbar spine presenting for cardiac risk stratification. Procedure: Fusion of L5-S1 Surgeon: Dr. Kilgore Date: 12/02/24 Patient denies any chest pain/pressure/discomfort, palpitations, dizziness, or syncope. He reports mild shortness of breath on exertion and is a current, everyday smoker of 1.5 ppd x 40 years. He reports medication compliance. He currently walks with a walker due to his pars defect of the lumbar spine and has a left foot drop. Overall, his quality of life at present is quite poor given his physical limitations and symptoms. Cardiovascular testing: Echo (April,)-normal biventricular function Past Medical, Surgical, and Family History reviewed and updated in chart. Reviewed all medications by prescribing practitioner or clinical pharmacist (such as prescriptions, OTCs, herbal therapies and supplements) and documented in the medical record. Past Medical History Medical History[1] Social History Social History[2] Family History Family History[3] Allergies: RX Allergies[4] Outpatient Medications: Current Outpatient Medications Medication Instructions amLODIPine (NORVASC) 2.5 mg, oral, Daily RT gabapentin (Neurontin) 300 mg capsule 1 capsule, 3 times daily (0900,1400,1900) multivitamin tablet 1 tablet, Daily potassium citrate CR (Urocit-K-15) 15 mEq ER tablet 15 mEq, oral, Daily tamsulosin (FLOMAX) 0.4 mg, oral, Daily RT Labs: CMP: Recent Labs 11/25/24 1457 NA 140 K 4.4 CL 104 CO2 25 ANIONGAP 11 BUN 12 CREATININE 0.89 EGFR 96 Recent Labs 11/25/24 1457 ALBUMIN 4.2 ALKPHOS 101 ALT 11 AST 12 BILITOT 0.5 CBC: Recent Labs 11/25/24 1457 WBC 8.5 HGB 14.1 HCT 43.8 PLT 277 MCV 96.3 COAG: No results for input(s): PTT, INR, HAUF, DDIMERVTE, HAPTOGLOBIN, FIBRINOGEN in the last 82104 hours. ABO: No results for input(s): ABO in the last 83505 hours. HEME/ENDO: Recent Labs 11/25/24 1457 04/20/22 2140 HGBA1C 6.0* 6.1* CARDIAC: No results for input(s): LDH, CKMB, TROPHS, BNP in the last 67047 hours. No lab exists for component: CK, CKMBPNo results for input(s): CHOL, LDLF, HDL, TRIG in the last 17429 hours. MICRO: No results for input(s): ESR, CRP, PROCAL in the last 84843 hours. No results found for the last 90 days. Notable Studies: imaging personally reviewed EKG: Encounter Date: 11/25/24 ECG 12 lead (Ancillary Performed) Result Value Ventricular Rate 73 Atrial Rate 73 MT Interval 152 QRS Duration 82 QT Interval 396 QTC Calculation(Bazett) 436 P Heilwood 26 R Heilwood 22 T Heilwood 38 QRS Count 12 Q Onset 219 P Onset 143 P Offset 211 T Offset 417 QTC Fredericia 423 Narrative Sinus rhythm with Premature atrial complexes with Aberrant conduction Otherwise normal ECG No previous ECGs available Confirmed by Hema Bull ([id number]) on 11/26/2024 12:01:18 AM Echocardiogram: No results found for this or any previous visit from the past 1825 days. Stress Testing: No results found for this or any previous visit from the past 1825 days. Cardiac Catheterization: No results found for this or any previous visit from the past 1825 days. No results found for this or any previous visit from the past 3650 days. REVIEW OF SYSTEMS A 10-point system review was completed and was negative except as noted in the HPI. VITALS Vitals: 12/01/24 1344 BP: 132/70 Pulse: 90 SpO2: 92% PHYSICAL EXAM General: awake, alert and oriented. No acute distress. Skin: Skin is warm, dry and intact without rashes or lesions. HEENT: normocephalic, atraumatic; conjunctivae are clear without exudates or hemorrhage. Sclera is non-icteric. Eyelids are normal in appearance without swelling or lesions. Hearing intact. Nares are patent bilaterally. Moist mucous membranes. Cardiovascular: heart rate and rhythm are normal. No murmurs, gallops, or rubs are auscultated. S1 and S2 are heard and are of normal intensity. Respiratory: bilateral lung sounds clear to auscultations without rales, rhonchi, or wheezes. No accessory muscle use or stridor Neurological: no focal deficits; gait steady with walker Psychiatric: appropriate mood and affect; good judgment and insight ASSESSMENT AND PLAN Assessment/Plan Diagnoses and all orders for this visit: Encounter for pre-operative cardiovascular clearance Premature atrial complexes -EKG showing NSR with PACs; patient asymptomatic -Carola Perioperative Risk for Myocardial Infarction or Cardiac Arrest (SHARON)-0.1%; Revised Cardiac Risk Index for Pre-Operative Risk is 3.9%. Patient overall is considered low risk; may proceed with scheduled surgery with no further cardiac testing warranted at present. RTC: as needed Thank you for allowing me to participate in the care of this patient. Please reach me out if you have any questions or if you need any clarifications regarding the patient's care. Santos Garzon DNP, JET, EVENT MARKETING COORDINATOR-C Division of Cardiovascular Medicine [facility] [1] Past Medical History: Diagnosis Date Bernard's palsy Benign prostatic hyperplasia 05/08 Cancer (Multi) 05/08 Elevated PSA 05/08 Prostate cancer (Multi) 05/08 Urinary incontinence 05/09 [2] Social History Tobacco Use Smoking status: Every Day Current packs/day: 1.50 Average packs/day: 1.5 packs/day for 40.0 years (60.0 ttl pk-yrs) Types: Cigarettes Smokeless tobacco: Never Vaping Use Vaping status: Never Used Substance Use Topics Alcohol use: Not Currently Drug use: Not Currently [3] Family History Problem Relation Name Age of Onset Diabetes Mother Izabela 89 Coronary artery disease Mother Izabela Diabetes type II Mother Izabela Dementia Father 86 Melanoma Brother Jorge Cancer Brother Jorge [4] No Known Allergies documented in this encounter [facility] Work Phone: 11-26-2024 Telephone encounter Note called [facility] at [phone] and spoke with Tena Navarro. She stated CPT codes 19944 and 22108 are included due to them being instrumentation codes, but you can't see them on the auth approval; however, they are included. Call ref#[id number]. [facility] 11-26-2024 Miscellaneous Notes called CORNELIA at [phone] and spoke with Tena Navarro. She stated CPT codes 97345 and 35689 are included due to them being instrumentation codes, but you can't see them on the auth approval; however, they are included. Call ref#[id number]. Clearance form and the specific labs and EKG faxed to [phone]. Spoke with JESS at [phone] Called and lvm for Claudia with Jeanna note. Also sent [employer] message as well. He can do PAT through his PCP. Please let him know that his PCP will need to order an updated CBC, BMP, hemoglobin A1C, and EKG. They notes and results will need to be sent to us. Thanks! Patient's states the mucus covered bowel movements have decreased, and is now more concerned with constipation. Educated on risks on constipation, and educated on bowel regimen prior to surgery as opiates post operatively can increase risk for constipation. She verbalized understanding. She states patient already has some urinary incontinence due to previous prostate surgery, no change in status. She is inquiring if PAT can be done at [facility] as the drive to [facility] is bothersome to patient. Please see if patient has lost control of his bowels. Based on his imaging, it is unlikely that this is related to his back, but I would recommend he reach out to his PCP if this issue does not resolve. Please see if he is having new/worsening leg symptoms or changes in bladder function as well. Thank you. Pt. called stating that patient is scheduled for surgery December 02. states for the past 3 or 4 days patient has had urgent mucus covered bowl movements. is concerned about whether this will delay his surgery or move his surgery date up. Auth submitted via [employer]. Tracking#[id number] . Per patient no pt or pain management in last 12 months. ----- Message from Charly Kilgore MD sent at 10/29/2024 2:53 PM EDT ----- Posterior lumbar 5-sacral 1 decompression, fusion, pedicle screws, possible cage insertion 3 hours 2 nights [id number] [phone] [id number] documented in this encounter [facility] 11-26-2024 Telephone encounter Note Rosetta from [facility] [phone] called. She called stating that there was slight abnormality in his EKG and pt. is seeing the Rn Peritoneal Dialysis on the and should then be cleared by his surgery date of December 02. Any Questions you can call her. [facility] 11-26-2024 Miscellaneous Notes Rosetta from [facility] [phone] called. She called stating that there was slight abnormality in his EKG and pt. is seeing the Rn Peritoneal Dialysis on the and should then be cleared by his surgery date of December 02. Any Questions you can call her. documented in this encounter [facility] 11-25-2024 History of Present illness Narrative Subjective Patient ID: Ginger Weldon is a 63 y.o. male who presents for surgery clearance (Spine L5-S1 Fusion with possible cage). 63 yo male patient presents for surgical clearance for LS spine fusion L5-S1. Comes in using walker. States he has history of lower extremity swelling pain and paresthesia. History of prostate cancer and HTN. Denies any complaints or concerns otherwise. is present in room. Admits he does smoke 1-1 1/2 packs of cigarettes per day. States he does notice some wheezing at night and sob on minimal activities. He is not on any inhalers at this time. Denies any previous complications with anesthesia. Review of Systems Constitutional: Negative for chills and fever. Respiratory: Positive for wheezing. Negative for cough and shortness of breath. Cardiovascular: Negative for chest pain and palpitations. Gastrointestinal: Negative for abdominal distention, abdominal pain, constipation, diarrhea, nausea and vomiting. Musculoskeletal: Positive for back pain. Neurological: Positive for numbness. Objective Physical Exam Vitals and nursing note reviewed. Constitutional: General: He is not in acute distress. HENT: Head: Normocephalic. Right Ear: Tympanic membrane normal. Left Ear: Tympanic membrane normal. Nose: No congestion or rhinorrhea. Mouth/Throat: Pharynx: No oropharyngeal exudate or posterior oropharyngeal erythema. Cardiovascular: Rate and Rhythm: Normal rate and regular rhythm. Pulses: Normal pulses. Heart sounds: Normal heart sounds. No murmur heard. No friction rub. No gallop. Pulmonary: Effort: Pulmonary effort is normal. Breath sounds: Wheezing present. No rhonchi or rales. Comments: Slight wheezing heard posterior lower bases bilaterally on expiration. Abdominal: General: Bowel sounds are normal. Tenderness: There is no abdominal tenderness. Musculoskeletal: Right lower leg: No edema. Left lower leg: No edema. Lymphadenopathy: Cervical: No cervical adenopathy. Skin: General: Skin is warm and dry. Capillary Refill: Capillary refill takes 2 to 3 seconds. Neurological: Mental Status: He is alert and oriented to person, place, and time. Psychiatric: Mood and Affect: Mood normal. BP 134/81 Pulse 71 Ht 1.778 m (5' 10) Wt 86 kg (189 lb 9.6 oz) SpO2 97% BMI 27.20 kg/m Current Medications[1] Medical History[2] Surgical History[3] Family History[4] Assessment/Plan Problem List Items Addressed This Visit None Visit Diagnoses Pars defect of lumbar spine - Primary Relevant Orders CBC and Auto Differential Comprehensive metabolic panel Hemoglobin A1c ECG 12 lead (Ancillary Performed) Moderate risk for surgery. Get labs and EKG. Recommend to return after surgery to see pcp for copd tx and CT lung screening. [1] Current Outpatient Medications: amLODIPine (Norvasc) 2.5 mg tablet, Take 1 tablet (2.5 mg) by mouth once daily., Disp: 90 tablet, Rfl: 3 gabapentin (Neurontin) 300 mg capsule, Take 1 capsule (300 mg) by mouth 3 times a day., Disp: , Rfl: multivitamin tablet, Take 1 tablet by mouth once daily., Disp: , Rfl: potassium citrate CR (Urocit-K-15) 15 mEq ER tablet, Take 1 tablet (15 mEq) by mouth once daily., Disp: 90 tablet, Rfl: 3 tamsulosin (Flomax) 0.4 mg 24 hr capsule, Take 1 capsule (0.4 mg) by mouth once daily., Disp: 90 capsule, Rfl: 3 [2] Past Medical History: Diagnosis Date Bernard's palsy Benign prostatic hyperplasia 05/08 Cancer (Multi) 05/08 Elevated PSA 05/08 Prostate cancer (Multi) 05/08 Urinary incontinence 05/09 [3] Past Surgical History: Procedure Laterality Date BLADDER SURGERY TRANSURETHRAL RESECTION OF PROSTATE 04/2024 [4] Family History Problem Relation Name Age of Onset Diabetes Mother Izabela 89 Coronary artery disease Mother Izabela Dementia Father 86 Melanoma Brother Jorge Cancer Brother Jorge documented in this encounter [facility] Work Phone: 11-24-2024 Telephone encounter Note Clearance form and the specific labs and EKG faxed to [phone]. Spoke with JESS at [phone] [facility] 11-24-2024 Miscellaneous Notes Clearance form and the specific labs and EKG faxed to [phone]. Spoke with JESS at [phone] Called and lvm for Claudia with Halina' note. Also sent [employer] message as well. He can do PAT through his PCP. Please let him know that his PCP will need to order an updated CBC, BMP, hemoglobin A1C, and EKG. They notes and results will need to be sent to us. Thanks! Patient's states the mucus covered bowel movements have decreased, and is now more concerned with constipation. Educated on risks on constipation, and educated on bowel regimen prior to surgery as opiates post operatively can increase risk for constipation. She verbalized understanding. She states patient already has some urinary incontinence due to previous prostate surgery, no change in status. She is inquiring if PAT can be done at [facility] as the drive to [facility] is bothersome to patient. Please see if patient has lost control of his bowels. Based on his imaging, it is unlikely that this is related to his back, but I would recommend he reach out to his PCP if this issue does not resolve. Please see if he is having new/worsening leg symptoms or changes in bladder function as well. Thank you. Pt. called stating that patient is scheduled for surgery December 02. states for the past 3 or 4 days patient has had urgent mucus covered bowl movements. is concerned about whether this will delay his surgery or move his surgery date up. Auth submitted via [employer]. Tracking#[id number] . Per patient no pt or pain management in last 12 months. ----- Message from Charly Kilgore MD sent at 10/29/2024 2:53 PM EDT ----- Posterior lumbar 5-sacral 1 decompression, fusion, pedicle screws, possible cage insertion 3 hours 2 nights [id number] [phone] documented in this encounter [facility] 11-17-2024 Telephone encounter Note Called and lvm for Claudia with Jeanna note. Also sent [employer] message as well. [facility] 11-17-2024 Miscellaneous Notes Called and lvm for Claudia with Jeanna note. Also sent [employer] message as well. He can do PAT through his PCP. Please let him know that his PCP will need to order an updated CBC, BMP, hemoglobin A1C, and EKG. They notes and results will need to be sent to us. Thanks! Patient's states the mucus covered bowel movements have decreased, and is now more concerned with constipation. Educated on risks on constipation, and educated on bowel regimen prior to surgery as opiates post operatively can increase risk for constipation. She verbalized understanding. She states patient already has some urinary incontinence due to previous prostate surgery, no change in status. She is inquiring if PAT can be done at [facility] as the drive to [facility] is bothersome to patient. Please see if patient has lost control of his bowels. Based on his imaging, it is unlikely that this is related to his back, but I would recommend he reach out to his PCP if this issue does not resolve. Please see if he is having new/worsening leg symptoms or changes in bladder function as well. Thank you. Pt. called stating that patient is scheduled for surgery December 02. states for the past 3 or 4 days patient has had urgent mucus covered bowl movements. is concerned about whether this will delay his surgery or move his surgery date up. Auth submitted via [employer]. Tracking#[id number] . Per patient no pt or pain management in last 12 months. ----- Message from Charly Kilgore MD sent at 10/29/2024 2:53 PM EDT ----- Posterior lumbar 5-sacral 1 decompression, fusion, pedicle screws, possible cage insertion 3 hours 2 nights [phone] documented in this encounter [facility] 11-16-2024 Telephone encounter Note He can do PAT through his PCP. Please let him know that his PCP will need to order an updated CBC, BMP, hemoglobin A1C, and EKG. They notes and results will need to be sent to us. Thanks! [facility] 11-16-2024 Miscellaneous Notes He can do PAT through his PCP. Please let him know that his PCP will need to order an updated CBC, BMP, hemoglobin A1C, and EKG. They notes and results will need to be sent to us. Thanks! Patient's states the mucus covered bowel movements have decreased, and is now more concerned with constipation. Educated on risks on constipation, and educated on bowel regimen prior to surgery as opiates post operatively can increase risk for constipation. She verbalized understanding. She states patient already has some urinary incontinence due to previous prostate surgery, no change in status. She is inquiring if PAT can be done at [facility] as the drive to [facility] is bothersome to patient. Please see if patient has lost control of his bowels. Based on his imaging, it is unlikely that this is related to his back, but I would recommend he reach out to his PCP if this issue does not resolve. Please see if he is having new/worsening leg symptoms or changes in bladder function as well. Thank you. Pt. called stating that patient is scheduled for surgery December 02. states for the past 3 or 4 days patient has had urgent mucus covered bowl movements. is concerned about whether this will delay his surgery or move his surgery date up. Auth submitted via [employer]. Tracking#[id number] . Per patient no pt or pain management in last 12 months. ----- Message from Charly Kilgore MD sent at 10/29/2024 2:53 PM EDT ----- Posterior lumbar 5-sacral 1 decompression, fusion, pedicle screws, possible cage insertion 3 hours 2 nights [id number] [phone] documented in this encounter [facility] 11-16-2024 Telephone encounter Note Patient's states the mucus covered bowel movements have decreased, and is now more concerned with constipation. Educated on risks on constipation, and educated on bowel regimen prior to surgery as opiates post operatively can increase risk for constipation. She verbalized understanding. She states patient already has some urinary incontinence due to previous prostate surgery, no change in status. She is inquiring if PAT can be done at [facility] as the drive to [facility] is bothersome to patient. [facility] 11-13-2024 Telephone encounter Note Please see if patient has lost control of his bowels. Based on his imaging, it is unlikely that this is related to his back, but I would recommend he reach out to his PCP if this issue does not resolve. Please see if he is having new/worsening leg symptoms or changes in bladder function as well. Thank you. [facility] 11-13-2024 Miscellaneous Notes Please see if patient has lost control of his bowels. Based on his imaging, it is unlikely that this is related to his back, but I would recommend he reach out to his PCP if this issue does not resolve. Please see if he is having new/worsening leg symptoms or changes in bladder function as well. Thank you. Pt. called stating that patient is scheduled for surgery December 02. states for the past 3 or 4 days patient has had urgent mucus covered bowl movements. is concerned about whether this will delay his surgery or move his surgery date up. Auth submitted via [employer]. Tracking#[id number] . Per patient no pt or pain management in last 12 months. ----- Message from Charly Kilgore MD sent at 10/29/2024 2:53 PM EDT ----- Posterior lumbar 5-sacral 1 decompression, fusion, pedicle screws, possible cage insertion 3 hours 2 nights [id number] [phone] documented in this encounter [facility] 11-13-2024 Telephone encounter Note Pt. called stating that patient is scheduled for surgery December 02. states for the past 3 or 4 days patient has had urgent mucus covered bowl movements. is concerned about whether this will delay his surgery or move his surgery date up. [facility] 11-10-2024 Telephone encounter Note Auth submitted via [employer]. Tracking#[id number] . Per patient no pt or pain management in last 12 months. [facility] 11-06-2024 Telephone encounter Note ----- Message from Charly Kilgore MD sent at 10/29/2024 2:53 PM EDT ----- Posterior lumbar 5-sacral 1 decompression, fusion, pedicle screws, possible cage insertion 3 hours 2 nights [id number] [phone] [facility] 10-30-2024 Telephone encounter Note Pt will need to check with the provider that ordered the EMG. Thanks [facility] [employer] Work Phone: 10-30-2024 Miscellaneous Notes Pt will need to check with the provider that ordered the EMG. Thanks Patient is scheduled for EMG on Saturday. Patient's is inquiring if this study is necessary after today's office visit. documented in this encounter [facility] 10-29-2024 Telephone encounter Note Patient is scheduled for EMG on Saturday. Patient's is inquiring if this study is necessary after today's office visit. [facility] 10-29-2024 Telephone encounter Note Left message relaying information as written [facility] 10-29-2024 Miscellaneous Notes Left message relaying information as written Unfortunately it is harder to find medications that treat the numbness effectively. Gabapentin is probably the best option for treatment of his symptoms at this time. I did refill this. Patient is requesting a refill of gabapentin 330mg TID. He states this helps his pain, but has tingling in his foot. Inquiring if there is anything you can give to help alleviate this as the gabapentin does not help. documented in this encounter [facility] 10-29-2024 Telephone encounter Note Unfortunately it is harder to find medications that treat the numbness effectively. Gabapentin is probably the best option for treatment of his symptoms at this time. I did refill this. [facility] Work Phone: 10-29-2024 Telephone encounter Note Patient is requesting a refill of gabapentin 330mg TID. He states this helps his pain, but has tingling in his foot. Inquiring if there is anything you can give to help alleviate this as the gabapentin does not help. [facility] 10-29-2024 History of Present illness Narrative NEUROSURGERY CONSULT NOTE Patient Name: Ginger Weldon Patient : 1960 PCP: Je Lira History of Present Ilness: 63 y.o. presents with low back pain. States the pain radiates to his hips. His pain is worse with walking and weight bearing activity. He is ambulating with a limp. He has numbness and weakness primarily in his distal left lower extremity. He is having difficulty ambulating and he is using a walker to ambulate. He has been doing PT. His PT told him he has developed a left foot drop. He has been taking gabapentin and tylenol. He has history of skin cancer and prostate cancer. Chief Complaint Patient presents with New Patient LLE pain and foot drop Past Medical History: Medical History[1] Past Surgical History: Surgical History[2] Home Medications: Prior to Admission medications Medication Sig Start Date End Date Taking? Authorizing Provider acetaminophen (Tylenol) 325 MG tablet Take 650 mg by mouth every 6 hours as needed. Yes Historical Provider, amLODIPine (Norvasc) 2.5 MG tablet Take 2.5 mg by mouth daily. 06/07/23 02/21/25 Yes Historical Provider, amLODIPine-atorvastatin (Caduet) 2.5-10 MG tablet 05/09/22 Yes Historical Provider, gabapentin (Neurontin) 300 MG capsule 10/02/24 Yes Historical Provider, Multiple Vitamin (Multi-Vitamin) tablet Take 1 tablet by mouth daily. Yes Historical Provider, potassium citrate CR (Urocit-K-15) 15 MEQ (1620 MG) ER tablet Take 15 mEq by mouth daily. 08/16/23 Yes Historical Provider, tamsulosin (Flomax) 0.4 MG 24 hr capsule Take 0.4 mg by mouth daily. 05/04/22 08/27/25 Yes Historical Provider, Allergies: Patient has no known allergies. Social History: TOBACCO: reports that he has been smoking cigarettes. He has never used smokeless tobacco. ETOH: has no history on file for alcohol use. RECREATIONAL DRUG USE: Social History Substance and Sexual Activity Drug Use Never Family History: Family History[3] Review of Systems Musculoskeletal: Positive for back pain and gait problem. Neurological: Positive for weakness and numbness. All other systems reviewed and are negative. Physical Examination: Vitals: 10/29/24 1302 BP: 126/70 Pulse: 85 Physical Exam Vitals reviewed. Constitutional: Appearance: Normal appearance. HENT: Head: Normocephalic and atraumatic. Nose: Nose normal. Mouth/Throat: Pharynx: Oropharynx is clear. Eyes: Extraocular Movements: Extraocular movements intact. Conjunctiva/sclera: Conjunctivae normal. Cardiovascular: Rate and Rhythm: Normal rate and regular rhythm. Pulses: Normal pulses. Pulmonary: Effort: Pulmonary effort is normal. No respiratory distress. Abdominal: General: There is no distension. Palpations: Abdomen is soft. Tenderness: There is no abdominal tenderness. Musculoskeletal: General: No tenderness. Normal range of motion. Cervical back: Normal range of motion and neck supple. No rigidity. Skin: General: Skin is warm and dry. Neurological: Mental Status: He is alert and oriented to person, place, and time. Cranial Nerves: No cranial nerve deficit. Sensory: No sensory deficit. Motor: Weakness present. Gait: Gait abnormal. Deep Tendon Reflexes: Reflexes abnormal. Comments: Gait unsteady Unable to walk on toes and heels Strength 2/5 in left ankle dorsiflexion, left drop foot Diminished ROM in lumbar spine Psychiatric: Mood and Affect: Mood normal. Behavior: Behavior normal. Neurological Exam Mental Status Alert. Oriented to person, place, and time. Cranial Nerves CN III, IV, : Extraocular movements intact bilaterally. Gait Abnormal gait. Gait unsteady Unable to walk on toes and heels Strength 2/5 in left ankle dorsiflexion, left drop foot Diminished ROM in lumbar spine. Gait unsteady Results Labs: Last 24hrs No results found for this or any previous visit (from the past 24 hours). Radiology Personal review: Recent MRI lumbar spine was reviewed. 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 There is severe lateral recess and foraminal stenosis with impingement of the L5 and to lesser extent S1 nerve roots ASSESSMENT / PLAN : 63yo m with symptomatic pathology referable to his lumbar spine. His imaging was reviewed with him, and he is symptomatic to the above noted pathology. Both surgical and conservative treatment options were discussed with him. With respect to surgery, the risks, benefits, and alternatives to an L5-S1 decompression fusion with pedicle screw fixation and possible cage insertion were discussed and understood by the patient. The rehabilitation process and prognosis were discussed as well and all his questions were answered. He would like to proceed with surgery. He understands all of the above Diagnosis Plan 1. Pars defect of lumbar spine [1] History reviewed. No pertinent past medical history. [2] History reviewed. No pertinent surgical history. [3] No family history on file. documented in this encounter [facility] 07-22-2024 History of Present illness Narrative Subjective Patient ID: Ginger Weldon is a 63 y.o. male. HPI Patient is here for 3 month follow up. S/P Plasma TURP on 05/10. He states this has greatly improved LUT'S. Pain has resolved. Patient notices night and day improvement He is taking Flomax. Hx of prostate cancer. S/P XRT on 10/07. He needed 2 years of Lupron. He has finished his Lupron. Last Lupron was on 03/10. Most recent PSA was 0.01 on 03/10. Prior PSA was 0.05 on 08/10. Prior PSA was 0.05 and prior PSA was 0.09 on 04/08. S/P DVIU on 07/26. Review of Systems Constitutional: Negative for chills and fever. HENT: Negative. Eyes: Negative. Respiratory: Negative for cough and shortness of breath. Cardiovascular: Negative for chest pain and leg swelling. Gastrointestinal: Negative for nausea. Endocrine: Negative. Genitourinary: Negative for difficulty urinating. Negative except for documented in HPI Allergic/Immunologic: Negative. Neurological: Alert & oriented X 3 Hematological: Denies blood thinners Psychiatric/Behavioral: Negative. Objective Physical Exam Vitals and nursing note reviewed. Pulmonary: Effort: Pulmonary effort is normal. Abdominal: Palpations: Abdomen is soft. Tenderness: There is no abdominal tenderness. Genitourinary: Comments: Kidneys non palpable bilaterally Bladder non palpable or tender Neurological: Mental Status: He is alert. Assessment/Plan Diagnoses and all orders for this visit: Malignant neoplasm of prostate (Multi) Nocturia 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 urethral stricture Urinary hesitancy History of bladder stone All available PSA values reviewed, Options discussed. Questions answered. New PSA ordered Diet changes for prostate health discussed and educational information given. Pros/Cons of prostate health supplements discussed. Treatment options for LUTS reviewed-Patient pleased Patient will try to wean off Flomax Pathology reviewed-BENIGN Discussed timed voiding. Discussed fluid and caffeine intake Treatment options for ED reviewed-observe Lifestyle change to help prevent UTIs discussed. Encouraged fluid intake. UA reviewed F/U 6-8 weeks virtual with PSA documented in this encounter [facility] Work Phone: 05-10-2024 History of Present illness Narrative Subjective Patient ID: Ginger Weldon is a 63 y.o. male. [facility] Patient is here for 1 month follow up. S/P Plasma TURP on 05/10. He states this has greatly improved LUT'S. Pain has resolved. He is taking Flomax. Tried taking every other day but went back to everyday. Hx of prostate cancer. S/P XRT Dr Dunaway at [facility] on 10/07. He needed 2 years of Lupron. He has finished his Lupron. Last Lupron was on 03/10. Most recent PSA was 0.04 on 08/11. Prior PSA was 0.01 on 03/10. Prior PSA was 0.05 on 08/10. Prior PSA was 0.05 and prior PSA was 0.09 on 04/08. S/P DVIU on 07/26. He does take Potassium Citrate for stone prevention Review of Systems Constitutional: Negative for chills and fever. HENT: Negative. Eyes: Negative. Respiratory: Negative for cough and shortness of breath. Cardiovascular: Negative for chest pain and leg swelling. Gastrointestinal: Negative for nausea. Endocrine: Negative. Genitourinary: Negative for difficulty urinating. Negative except for documented in HPI Allergic/Immunologic: Negative. Neurological: Alert & oriented X 3 Hematological: Denies blood thinners Psychiatric/Behavioral: Negative. Objective Physical Exam No PE done given the virtual nature of visit. Assessment/Plan Diagnoses and all orders for this visit: Other stricture of urethra in male Malignant neoplasm of prostate (Multi) Nocturia History of bladder stone All available PSA values reviewed, Options discussed. Questions answered. Patient has F/U appointment later this year with PSA and Radiation oncology. Diet changes for prostate health discussed and educational information given. Pros/Cons of prostate health supplements discussed. Treatment options for LUTS reviewed-Patient very pleased with improvement Continue Flomax-Rx refilled Discussed timed voiding. Discussed fluid and caffeine intake Treatment options for ED reviewed. Lifestyle change to help prevent UTIs discussed. Encouraged fluid intake. Potassium Citrate Rx given F/U 1 year with PSA With Dr. Gilbert documented in this encounter [facility] Work Phone: 05-07-2024 History of Present illness Narrative Subjective Patient ID: Ginger Weldon is a 63 y.o. male. HPI Patient is here for cath removal. S/P Plasma TURP on Saturday. Hx of prostate cancer. S/P XRT on 10/07. He needed 2 years of Lupron. He has had 2 Lupron injections already. Last Lupron was 02/06. Most recent PSA was 0.05 on 08/10. Prior PSA was 0.05 and prior PSA was 0.09 on 04/08. S/P DVIU on 07/26. He is taking Flomax Review of Systems Constitutional: Negative for chills and fever. HENT: Negative. Eyes: Negative. Respiratory: Negative for cough and shortness of breath. Cardiovascular: Negative for chest pain and leg swelling. Gastrointestinal: Negative for nausea. Endocrine: Negative. Genitourinary: Negative for difficulty urinating. Negative except for documented in HPI Allergic/Immunologic: Negative. Neurological: Alert & oriented X 3 Hematological: Denies blood thinners Psychiatric/Behavioral: Negative. 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 For example: if you take Tylenol at 12:00 follow with ibuprofen at 3:00, Tylenol again at 6:00 and ibuprofen at 9:00 and so forth. Using this method of pain control will ensure that every 3 hours you will have a pain medication available. If you are taking a narcotic pain medication that also contains acetaminophen/Tylenol please monitor how much you are taking per day. The maximum dose of acetaminophen/tylenol for a healthy adult with no pre-existing/known liver conditions is 4000 mg/day. As always consult with your primary care doctor or surgeon regarding the best method of pain control for you. The following attachments cannot be sent through Care Everywhere.How to Care for Your Negrete Catheter (Ugandan)Transurethral Resection of the Prostate Discharge Instructions (Ugandan)documented in this encounter [facility] Work Phone: 05-05-2024 Note Formatting of this n ote is different from the original. Resection Transurethral Prostate Operative Note Date: 05/05/2024 OR Location: [facility] OR Name: Ginger Weldon : 1960, Age: 63 y.o., , Sex: male Diagnosis Pre-op Diagnosis * Stricture of male urethra, unspecified stricture type [N35.919] * Urinary retention [R33.9] Post-op Diagnosis * Stricture of male urethra, unspecified stricture type [N35.919] * Urinary retention [R33.9] Procedures Resection Transurethral Prostate 29615 - MT TRURL ELECTROSURG RESCJ PROSTATE BLEED COMPLETE Surgeons * Price Reeves - Primary Resident/Fellow/Other Neurosurgical Nurse: Surgeons and Role: * No surgeons found with a matching role * Staff: Editor Map: Tamiko Gant Person: Femi Anesthesia Staff: Anesthesiologist: Eliazar Plascencia DO Procedure Summary Anesthesia: Anesthesia type not filed in the log. ASA: II Estimated Blood Loss: 0mL Intra-op Medications: Administrations occurring from 1100 to 1130 on 05/05/24: Medication Name Total Dose fentaNYL (Sublimaze) injection 50 mcg/mL 250 mcg ketamine injection 50 mg/ 5 mL (10 mg/mL) 50 mg propofol (Diprivan) injection 10 mg/mL 200 mg rocuronium (ZeMuron) 50 mg/5 mL injection 10 mg Anesthesia Record Intraprocedure I/O Totals None Specimen: ID Type Source Tests Collected by Time 1 : PROSTATE CHIPS Tissue PROSTATE TURP SURGICAL PATHOLOGY EXAM Femi Kim RN 05/05/2024 1138 Drains and/or Catheters: Urethral Catheter Latex 22 Fr. (Active) Tourniquet Times: Indications: Ginger Weldon is an 63 y.o. male who is having surgery for Stricture of male urethra, unspecified stricture type [N35.919] Urinary retention [R33.9]. The patient was seen in the preoperative area. The risks, benefits, complications, treatment options, non-operative alternatives, expected recovery and outcomes were discussed with the patient. The possibilities of reaction to medication, pulmonary aspiration, injury to surrounding structures, bleeding, recurrent infection, the need for additional procedures, failure to diagnose a condition, and creating a complication requiring transfusion or operation were discussed with the patient. The patient concurred with the proposed plan, giving informed consent. The site of surgery was properly noted/marked if necessary per policy. The patient has been actively warmed in preoperative area. Anesthetic: General. Estimated blood loss: Minimal. Complications: None. Pre-Op Diagnosis: obstructive urinary symptoms. Post-Op Diagnosis: obstructive urinary symptoms. Operation: Cystoscopy. Transurethral resection using the PLASMA loop. INDICATIONS AND CONSENT: Patient presents with obstructive urinary symptoms who has failed medical management who now presents for treatment. After the risks, benefits, alternatives and indications for the procedure were explained, he consented. PROCEDURE: The patient was brought to the operating room and placed on the table in supine position. After adequate anesthesia was obtained, the patient was prepped and draped in the standard surgical fashion. First the continuous flow #21 Stateless cystoscope was inserted in the bladder. The landmarks were identified, including both ureteral orifices and the verumontanum. We then began Treatment/resection of the prostate using the PLASMA loop. We started first at the bladder neck and then treated the left lobe, followed by the right lobe. Care was taken so as not to treat distal to the verumontanum. After both lateral lobes had been treated some anterior tissue was treated as well. Resected specimen was removed and sent to pathology. At this point the procedure was terminated. The patient tolerated the procedure well. There were no complications. Three-way Negrete catheter was inserted without complications. Attending Attestation: I was present and scrubbed for the entire procedure. Price Reeves [facility] Work Phone: 05-05-2024 Miscellaneous Notes Resection Transurethral Prostate Operative Note Date: 05/05/2024 OR Location: [facility] OR Name: Ginger Weldon, : 1960, Age: 63 y.o., , Sex: male Diagnosis Pre-op Diagnosis * Stricture of male urethra, unspecified stricture type [N35.919] * Urinary retention [R33.9] Post-op Diagnosis * Stricture of male urethra, unspecified stricture type [N35.919] * Urinary retention [R33.9] Procedures Resection Transurethral Prostate 76925 - MT TRURL ELECTROSURG RESCJ PROSTATE BLEED COMPLETE Surgeons * Price Reeves - Primary Resident/Fellow/Other Neurosurgical Nurse: Surgeons and Role: * No surgeons found with a matching role * Staff: Editor Map: Taimko Gant Person: Femi Anesthesia Staff: Anesthesiologist: Eliazar Plascencia, Procedure Summary Anesthesia: Anesthesia type not filed in the log. ASA: II Estimated Blood Loss: 0mL Intra-op Medications: Administrations occurring from 1100 to 1130 on 05/05/24: Medication Name Total Dose fentaNYL (Sublimaze) injection 50 mcg/mL 250 mcg ketamine injection 50 mg/ 5 mL (10 mg/mL) 50 mg propofol (Diprivan) injection 10 mg/mL 200 mg rocuronium (ZeMuron) 50 mg/5 mL injection 10 mg Anesthesia Record Intraprocedure I/O Totals None Specimen: ID Type Source Tests Collected by Time 1 : PROSTATE CHIPS Tissue PROSTATE TURP SURGICAL PATHOLOGY EXAM Femi Kim RN 05/05/2024 1138 Drains and/or Catheters: Urethral Catheter Latex 22 Fr. (Active) Tourniquet Times: Indications: Ginger Weldon is an 63 y.o. male who is having surgery for Stricture of male urethra, unspecified stricture type [N35.919] Urinary retention [R33.9]. The patient was seen in the preoperative area. The risks, benefits, complications, treatment options, non-operative alternatives, expected recovery and outcomes were discussed with the patient. The possibilities of reaction to medication, pulmonary aspiration, injury to surrounding structures, bleeding, recurrent infection, the need for additional procedures, failure to diagnose a condition, and creating a complication requiring transfusion or operation were discussed with the patient. The patient concurred with the proposed plan, giving informed consent. The site of surgery was properly noted/marked if necessary per policy. The patient has been actively warmed in preoperative area. Anesthetic: General. Estimated blood loss: Minimal. Complications: None. Pre-Op Diagnosis: obstructive urinary symptoms. Post-Op Diagnosis: obstructive urinary symptoms. Operation: Cystoscopy. Transurethral resection using the PLASMA loop. INDICATIONS AND CONSENT: Patient presents with obstructive urinary symptoms who has failed medical management who now presents for treatment. After the risks, benefits, alternatives and indications for the procedure were explained, he consented. PROCEDURE: The patient was brought to the operating room and placed on the table in supine position. After adequate anesthesia was obtained, the patient was prepped and draped in the standard surgical fashion. First the continuous flow #21 Stateless cystoscope was inserted in the bladder. The landmarks were identified, including both ureteral orifices and the verumontanum. We then began Treatment/resection of the prostate using the PLASMA loop. We started first at the bladder neck and then treated the left lobe, followed by the right lobe. Care was taken so as not to treat distal to the verumontanum. After both lateral lobes had been treated some anterior tissue was treated as well. Resected specimen was removed and sent to pathology. At this point the procedure was terminated. The patient tolerated the procedure well. There were no complications. Three-way Negrete catheter was inserted without complications. Attending Attestation: I was present and scrubbed for the entire procedure. Price Reeves No outpatient medications have been marked as taking for the 05/05/24 encounter (Hospital Encounter). NPO Instructions: Do not eat any food after midnight the night before your surgery/procedure. You may have clear liquids until TWO hours before surgery/procedure. This includes water, black tea/coffee, (no milk or cream) apple juice and electrolyte drinks (Gatorade). Additional Instructions: Will need driver medic home, will receive call day before surgery with arrival time documented in this encounter [facility] Work Phone: 05-05-2024 History and physical note History Of Present Illness Ginger Weldon is a 63 y.o. male presenting with BPH with LUTs. Past Medical History Past Medical History: Diagnosis Date Bernard's palsy Benign prostatic hyperplasia 05/08 Cancer (Multi) 05/08 Elevated PSA 05/08 Prostate cancer (Multi) 05/08 Urinary incontinence 05/09 Surgical History Past Surgical History: Procedure Laterality Date BLADDER SURGERY Social History He reports that he has been smoking cigarettes. He has a 60 pack-year smoking history. He has never used smokeless tobacco. He reports that he does not currently use alcohol. He reports that he does not currently use drugs. Family History Family History Problem Relation Name Age of Onset Diabetes Mother Izabela Rajput Coronary artery disease Mother Izabela Dementia Father 86 Melanoma Brother Jorge Allergies Patient has no known allergies. Review of Systems Constitutional: Negative for chills and fever. HENT: Negative. Eyes: Negative. Respiratory: Negative for cough and shortness of breath. Cardiovascular: Negative for chest pain and leg swelling. Gastrointestinal: Negative for nausea. Endocrine: Negative. Genitourinary: Negative for difficulty urinating. Negative except for documented in HPI Allergic/Immunologic: Negative. Neurological: Alert & oriented X 3 Hematological: Denies blood thinners Psychiatric/Behavioral: Negative. Physical Exam Vitals and nursing note reviewed. Pulmonary: Effort: Pulmonary effort is normal. Abdominal: Palpations: Abdomen is soft. Tenderness: There is no abdominal tenderness. Genitourinary: Comments: Kidneys non palpable bilaterally Bladder non palpable or tender Neurological: Mental Status: He is alert. Last Recorded Vitals Weight 86.2 kg (190 lb). Assessment/Plan Assessment & Plan Urinary retention Stricture of male urethra Price Reeves MD [facility] Work Phone: 05-05-2024 History and physical note History Of Present Illness Ginger Weldon is a 63 y.o. male presenting with BPH with LUTs. Past Medical History Past Medical History: Diagnosis Date Bernard's palsy Benign prostatic hyperplasia 05/08 Cancer (Multi) 05/08 Elevated PSA 05/08 Prostate cancer (Multi) 05/08 Urinary incontinence 05/09 Surgical History Past Surgical History: Procedure Laterality Date BLADDER SURGERY Social History He reports that he has been smoking cigarettes. He has a 60 pack-year smoking history. He has never used smokeless tobacco. He reports that he does not currently use alcohol. He reports that he does not currently use drugs. Family History Family History Problem Relation Name Age of Onset Diabetes Mother Izabela Rajput Coronary artery disease Mother Izabela Dementia Father 86 Melanoma Brother Jorge Allergies Patient has no known allergies. Review of Systems Constitutional: Negative for chills and fever. HENT: Negative. Eyes: Negative. Respiratory: Negative for cough and shortness of breath. Cardiovascular: Negative for chest pain and leg swelling. Gastrointestinal: Negative for nausea. Endocrine: Negative. Genitourinary: Negative for difficulty urinating. Negative except for documented in HPI Allergic/Immunologic: Negative. Neurological: Alert & oriented X 3 Hematological: Denies blood thinners Psychiatric/Behavioral: Negative. Physical Exam Vitals and nursing note reviewed. Pulmonary: Effort: Pulmonary effort is normal. Abdominal: Palpations: Abdomen is soft. Tenderness: There is no abdominal tenderness. Genitourinary: Comments: Kidneys non palpable bilaterally Bladder non palpable or tender Neurological: Mental Status: He is alert. Last Recorded Vitals Weight 86.2 kg (190 lb). Assessment/Plan Assessment & Plan Urinary retention Stricture of male urethra Price Reeves MD documented in this encounter [facility] Work Phone: 04-30-2024 Note Formatting of this n ote is different from the original. No outpatient medications have been marked as taking for the 05/05/24 encounter (Hospital Encounter). NPO Instructions: Do not eat any food after midnight the night before your surgery/procedure. You may have clear liquids until TWO hours before surgery/procedure. This includes water, black tea/coffee, (no milk or cream) apple juice and electrolyte drinks (Gatorade). Additional Instructions: Will need driver medic home, will receive call day before surgery with arrival time [facility] 03-26-2024 History of Present illness Narrative [facility] RADIATION ONCOLOG[facility] [address] [facility] [id number] MD Ariadna Walker MD Praveen Dubey, MD Andrew Freeman, MD David Howell, MD Vijay Kudithipudi, MD Michael Siedow, MD RADIATION ONCOLOGY ESTABLISHED PATIENT NOTE Patient Name: Ginger Weldon Date of : 1960 Date of Service: 03/26/2024 DIAGNOSIS: Adenocarcinoma of prostate (HCC) [C61] STAGE: Cancer Staging Adenocarcinoma of prostate (HCC) Staging form: Prostate, AJCC 8th Edition - Clinical stage from 04/20/2022: Stage IIIC (cT1c, cN0, cM0, PSA: 27, Grade Group: 5) - Signed by Maureen Parsons MD on 06/26/2022 TREATMENT SUMMARY: PROS_HYPO21 10/05/2022 Value Treatment Date Reference Point PROST_PELV_LN; cp PROST_PELV_LN 10/05/2022 Total Dose to Date (cGy) 7,000; 7,317 10/05/2022 Prescription Dose (cGy) 7,000 10/05/2022 Fractions Treated to Date 28 10/05/2022 Total Fractions Prescribed 28 10/05/2022 Prescribed Dose per Fraction (cGy) 250 10/05/2022 Elapsed Days 38 10/05/2022 Unverified data imported from [employer]. May not reflect actual given/total prescription dose. ECOG Performance 1 - Restricted in physically strenuous activity but ambulatory and able to carry out work of a light or sedentary nature, e.g., light house work, office work IMPRESSION: Ginger Weldon is a 63 y.o. M with very high risk prostate cancer (cT3/4 cN1, PSA 27.10, Grade Group 5) s/p PMSA with multiple hypermetabolic regional pelvic lymph nodes who completed a course of definitive external beam radiation therapy on 10/05/2022. RECOMMENDATIONS: Overall the patient is doing fairly well. He continues to struggle with urinary function and is set to have a TURP to address a persistent stricture which has worsened in the past 6 months. The patient continues to follow with Dr. Reeves up in the [facility]. Patient's most recent PSA was 0.01 down from 27.1 on 04/11/2022. Patient is tolerating his Lupron well without any considerable side effects. Patient will return to clinic in one year for an in person follow-up at his preference. He has my contact information should he have any questions in the future. I spent more than 20 minutes on this patient encounter including direct patient care and physical exam, chart review, and coordinating care with other providers. HISTORY Patient presents with his in clinic and is overall doing Reasonably well. He can continues to struggle with urinary issues which have worsened in the last 6 months. He is set to have a TURP and potentially a suprapubic if he doesn't have good results. He denies any bowel issues. I have personally reviewed all diagnostic imaging and reports since last evaluation in Radiation Oncology. REVIEW OF SYSTEMS No notes on file Review of Systems PAST MEDICAL HISTORY Past Medical History: No date: BESSIE (acute kidney injury) (HCC) No date: BPH (benign prostatic hyperplasia) No date: Cancer (HCC) No date: Elevated blood pressure reading with diagnosis of hypertension No date: Nicotine dependence No date: Prostate cancer (HCC) No date: Smoker MEDICATIONS Patient's Medications New Prescriptions No medications on file Previous Medications ACETAMINOPHEN (TYLENOL) 325 MG TABLET Take 2 (two) tablets (650 mg total) by mouth every 6 (six) hours as needed for pain . AMLODIPINE (NORVASC) 2.5 MG TABLET Take 1 (one) tablet (2.5 mg total) by mouth daily . BETHANECHOL (URECHOLINE) 25 MG TABLET Take 1 (one) tablet (25 mg total) by mouth 3 (three) times a day . BETHANECHOL CHLORIDE (URECHOLINE ORAL) Take by mouth . CYCLOBENZAPRINE (FLEXERIL) 10 MG TABLET Take 1 (one) tablet (10 mg total) by mouth 3 (three) times a day as needed for muscle spasms . GABAPENTIN (NEURONTIN) 100 MG CAPSULE Take 1-3 capsules TID as tolerated and helpful for pain, starting 1 TID on day 1, then 2 TID on day 2, then 3 TID . IMIPRAMINE (TOFRANIL) 10 MG TABLET Take 1 (one) tablet (10 mg total) by mouth nightly . MULTIVITAMIN PER TABLET Take 1 (one) tablet by mouth daily . OXYCODONE (ROXICODONE) 5 MG IMMEDIATE RELEASE TABLET Take 1 (one) tablet (5 mg total) by mouth every 6 (six) hours as needed for pain (cancer related pain) . POTASSIUM CITRATE (UROCIT-K) 15 MEQ TBER Take 1 (one) tablet (15 mEq total) by mouth 2 (two) times a day . TAMSULOSIN (FLOMAX) 0.4 MG CAPSULE Take 1 (one) capsule (0.4 mg total) by mouth daily AM . TRAMADOL (ULTRAM) 50 MG TABLET TRAZODONE (DESYREL) 50 MG TABLET Take 0.5 (one-half) tablet (25 mg total) by mouth nightly as needed . Modified Medications No medications on file Discontinued Medications No medications on file ALLERGIES Allergies: Patient has no known allergies. SOCIAL HISTORY reports that he has been smoking cigarettes. He started smoking about 34 years ago. He has a 63 pack-year smoking history. He has never used smokeless tobacco. He reports that he does not currently use alcohol. He reports that he does not use drugs. FAMILY HISTORY Cancer-related family history includes Melanoma in his brother. Objective PHYSICAL EXAM BP (!) 153/79 (BP Location: Left arm) Pulse 74 Wt 87.5 kg (193 lb) SpO2 95% BMI 27.69 kg/m ECOG Performance 1 - Restricted in physically strenuous activity but ambulatory and able to carry out work of a light or sedentary nature, e.g., light house work, office work General: NAD, patient well appearing. CV: Regular rate. Resp: Breathing is non-labored. Breathing comfortably on RA. Abdomen: Soft, ND. Extremities: No acute findings. No edema Skin: Color, texture and turgor wnl. No rashes and lesions. Neuro: AAO x 3, appropriately interactive, normal affect, speech fluent. Cranial nerves II through XII are intact grossly and symmetrically. No focal neurologic deficit. Please let me know if you have any questions. Jenn Callahan M.D. Radiation Oncology 5:10 PM, 03/26/24 documented in this encounter [facility] 03-11-2024 History of Present illness Narrative Subjective Patient ID: Ginger Weldon is a 63 y.o. male. HPI Patient is here for Lupron injection. Hx of prostate cancer. S/P XRT on 10/07. He needed 2 years of Lupron. He has had 3 Lupron injections already. Last Lupron was 02/06. Most recent PSA was 0.01 on 03/10. Prior PSA was 0.05 on 08/10. Prior PSA was 0.05 and prior PSA was 0.09 on 04/08. S/P DVIU on 07/26. Cysto done on e is taking Flomax. He is scheduled for TURP of prostate and calcification on 05/05. They would like to know if this needs done sooner. Review of Systems Constitutional: Negative for chills and fever. HENT: Negative. Eyes: Negative. Respiratory: Negative for cough and shortness of breath. Cardiovascular: Negative for chest pain and leg swelling. Gastrointestinal: Negative for nausea. Endocrine: Negative. Genitourinary: Negative for difficulty urinating. Negative except for documented in HPI Allergic/Immunologic: Negative. Neurological: Alert & oriented X 3 Hematological: Denies blood thinners Psychiatric/Behavioral: Negative. Objective Physical Exam Vitals and nursing note reviewed. Pulmonary: Effort: Pulmonary effort is normal. Abdominal: Palpations: Abdomen is soft. Tenderness: There is no abdominal tenderness. Genitourinary: Comments: Kidneys non palpable bilaterally Bladder non palpable or tender Neurological: Mental Status: He is alert. Assessment/Plan Diagnoses and all orders for this visit: Malignant neoplasm of prostate (Multi) - leuprolide (6-month) (Lupron Depot) injection 45 mg History of bladder stone Ureteral stricture Nocturia Urinary hesitancy Urinary frequency All available PSA values reviewed, Options discussed. Questions answered. Radiation oncology notes reviewed Final Lupron Rx given 45mg IM given today Diet changes for prostate health discussed and educational information given. Pros/Cons of prostate health supplements discussed. Treatment options for LUTS reviewed Pros/cons of TURP discussed. Has severe prostatic calcifications Discussed timed voiding. Discussed fluid and caffeine intake Treatment options for ED reviewed-OBSERVE Lifestyle change to help prevent UTIs discussed. Encouraged fluid intake. F/U Cysto TURP documented in this encounter [facility] Work Phone: 03-04-2024 History of Present illness Narrative Patient ID: Ginger Weldon is a 63 y.o. male. Procedures The patient was prepped using a Betadine solution. Lidocaine jelly was instilled into the urethra. The flexible cystoscope was sterilely inserted into the urethra and formal cystoscopy performed in a systematic fashion. . For detailed findings of the procedure, please see Dr. Reeves remarks below CIPRO 250MGPOBID TIMES 3 DAYS GIVEN PSA 0.01 (02/27/2024) 0.05 (07/2023) 0.09 (04/12/2023) 27.10 (04/11/2022) 23 (12/30/2021) S/P XRT LAST LUPRON 08/22/2023 RECURRENT PROSTATIC URETHRAL CALCIFICATIONS. F/F USED TO DILATE THROUGH WILL PLAN TURP OF PROSTATE AND CALCIFICATION CONTINUE POTASSIUM CITRATE ADD D-MANNOSE. documented in this encounter [facility] Work Phone: 02-27-2024 History of Present illness Narrative Subjective Patient ID: Ginger Weldon is a 63 y.o. male who presents for [facility] Care ([employer]/EST CARE). HPI Patient is a 63 y.o. male patient who is here today to [facility]. Pt has a pmhx of HTN, prostate cancer in 2021, s/p radiation, hx of Bernard's Palsy. Review of Systems Constitutional: Negative for activity change, appetite change, fatigue, fever and unexpected weight change. HENT: Negative for congestion, ear discharge, ear pain, nosebleeds, postnasal drip, rhinorrhea, sinus pressure, sneezing, sore throat, tinnitus and trouble swallowing. Eyes: Negative for discharge. Respiratory: Negative for cough and shortness of breath. Cardiovascular: Negative for chest pain. Gastrointestinal: Negative for abdominal distention, abdominal pain, blood in stool, constipation, diarrhea, nausea and vomiting. Endocrine: Negative for cold intolerance. Genitourinary: Positive for frequency. Negative for dysuria. Musculoskeletal: Negative for arthralgias, back pain and neck pain. Skin: Negative for rash. Neurological: Negative for dizziness, weakness, numbness and headaches. Psychiatric/Behavioral: Negative for hallucinations. The patient is not nervous/anxious. Objective BP 138/79 Pulse 71 Ht 1.778 m (5' 10) Wt 86.2 kg (190 lb) BMI 27.26 kg/m Physical Exam Constitutional: General: He is not in acute distress. Appearance: Normal appearance. HENT: Head: Normocephalic. Right Ear: Tympanic membrane, ear canal and external ear normal. Left Ear: Tympanic membrane, ear canal and external ear normal. Nose: Nose normal. Mouth/Throat: Pharynx: No oropharyngeal exudate. Eyes: General: Right eye: No discharge. Left eye: No discharge. Extraocular Movements: Extraocular movements intact. Pupils: Pupils are equal, round, and reactive to light. Cardiovascular: Rate and Rhythm: Normal rate and regular rhythm. Heart sounds: No murmur heard. No gallop. Pulmonary: Effort: Pulmonary effort is normal. No respiratory distress. Breath sounds: Normal breath sounds. No wheezing. Abdominal: General: Bowel sounds are normal. There is no distension. Palpations: Abdomen is soft. Tenderness: There is no abdominal tenderness. Musculoskeletal: General: No swelling. Normal range of motion. Cervical back: Neck supple. No tenderness. Skin: General: Skin is warm and dry. Coloration: Skin is not jaundiced. Comments: Large 2 cm oblon lesion in left side of face in [place] anterior to ear, suspicious for skin cancer, easy friability, irregularly pigmented with raised borders Neurological: General: No focal deficit present. Mental Status: He is alert and oriented to person, place, and time. Cranial Nerves: No cranial nerve deficit. Psychiatric: Mood and Affect: Mood normal. Behavior: Behavior normal. Assessment/Plan Problem List Items Addressed This Visit Stricture of male urethra Relevant Medications potassium citrate CR (Urocit-K-15) 15 mEq ER tablet Nocturia Hypertension Relevant Medications amLODIPine (Norvasc) 2.5 mg tablet tamsulosin (Flomax) 0.4 mg 24 hr capsule Other Relevant Orders Comprehensive Metabolic Panel CBC and Auto Differential Adenocarcinoma of prostate (Multi) Benign prostatic hyperplasia with urinary retention Other Visit Diagnoses Screening for colon cancer - Primary Relevant Orders Cologuard colon cancer screening Screening for lipid disorders Relevant Orders Lipid Panel Skin lesion Relevant Orders Referral to Dermatology Immunizations Flu shot declines COVID declines PNA declines Shingles declines RSV declines PSA will be checked Colon cancer screening declines Stage 3C Prostate Cancer s/p radiation, hx of post-procedure male urethral stricture, hx of bladder stone - sees DR Reeves - s.p radiation - on flomax - planned cystoscope next week to try to improve recurrence of stricture - on lupron - getting psa today 2. HTN, controlled - continue norvasc 2.5mg po daily 3. Smoker - smoked for 45 years, 1.5 ppd - not ready to quit smoking 4. Ordered cologuard 5. Ordered cbc, cmp, lipid 6. Suspect squamous cell on face - brother with hx of melanoma - referral to derm Final diagnoses: [N99.114] 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 urethral stricture [Z12.11] Screening for colon cancer [I10] Primary hypertension [Z13.220] Screening for lipid disorders [L98.9] Skin lesion [N40.1, R33.8] Benign prostatic hyperplasia with urinary retention [R35.1] Nocturia [C61] Adenocarcinoma of prostate (Multi) documented in this encounter [facility] Work Phone: 11-28-2023 History of Present illness Narrative Patient ID: Ginger Weldon is a 62 y.o. male. Procedures The patient was prepped using a Betadine solution. Lidocaine jelly was instilled into the urethra. The flexible cystoscope was sterilely inserted into the urethra and formal cystoscopy performed in a systematic fashion. . For detailed findings of the procedure, please see Dr. Reeves remarks below CIPRO 250MG POBID TIMES 3 DAYS GIVEN PSA 0.05 (07/2023) 0.09 (04/12/2023) 27.10 (04/11/2022) 23 (12/30/2021) LUPRON RECURRENT STRICTURE-ATTEMPTED DILATION . CALCIFICATION AT STRICTURE SITE. NO MASS. STONE FRAGMENTS REMOVED USING SCOPE. I COULD SEE PAST THE STRICTURE F/U F/F 2-3 MONTHS. documented in this encounter [facility] Work Phone: 08-29-2023 History of Present illness Narrative [facility] RADIATION ONCOLOGY [facility] [address] [facility] [id number] MD Ariadna Walker MD Praveen Dubey, MD Andrew Freeman, MD David Howell, MD Vijay Kudithipudi, MD Michael Siedow, MD RADIATION ONCOLOGY ESTABLISHED PATIENT NOTE Patient Name: Ginger Weldon Date of : 1960 Date of Service: 08/29/2023 DIAGNOSIS: Adenocarcinoma of prostate (HCC) [C61] STAGE: Cancer Staging Adenocarcinoma of prostate (HCC) Staging form: Prostate, AJCC 8th Edition - Clinical stage from 04/20/2022: Stage IIIC (cT1c, cN0, cM0, PSA: 27, Grade Group: 5) - Signed by Maureen Parsons MD on 06/26/2022 TREATMENT SUMMARY: [id number]_[id number] 10/05/2022 Value Treatment Date Reference Point PROST_PELV_LN; cp PROST_PELV_LN 10/05/2022 Total Dose to Date (cGy) 7,000; 7,317 10/05/2022 Prescription Dose (cGy) 7,000 10/05/2022 Fractions Treated to Date 28 10/05/2022 Total Fractions Prescribed 28 10/05/2022 Prescribed Dose per Fraction (cGy) 250 10/05/2022 Elapsed Days 38 10/05/2022 Unverified data imported from [employer]. May not reflect actual given/total prescription dose. ECOG Performance 2 - Ambulatory and capable of all selfcare but unable to carry out any work activities. Up and about more than 50% of waking hours IMPRESSION: Ginger Weldon is a 62 y.o. M with very high risk prostate cancer (cT3/4 cN1, PSA 27.10, Grade Group 5) s/p PMSA with multiple hypermetabolic regional pelvic lymph nodes who completed a course of definitive external beam radiation therapy on 10/05/2022. RECOMMENDATIONS: Overall the patient is doing well and is recovered from all his acute radiation-related toxicities. Patient's most recent PSA was 0.05 down from 27.10 on 04/11/22. The patient is tolerating his ADT well and is planning on two years of therapy. Patient recently established care with a urologist within the [facility] in [place]. Patient completed an in office cystoscopy and resection of the large bladder cyst and notes a considerable improvement in his symptoms. He is overall very happy with his urinary quality of life at this time. Patient will get routine PSAs with his provider going forward. Patient will return to clinic in 6 months with a repeat PSA at that time. The patient was in agreement with my plan and voiced understanding. He was provided with my contact information and encouraged to reach out to me if he needed anything in the future. I spent more than 20 minutes on this patient encounter including direct patient care and physical exam, chart review, and coordinating care with other providers. HISTORY Patient presents with his in clinic and is overall doing well. Following a resection of a bladder cyst he notices a considerable improvement in his urinary function and only has to void at least 60-90 minutes much improved from the conclusion of radiation therapy when he was void once or twice every hour. He denies any changes to his bowel habits or fecal continence following completion of his radiation therapy. He is tolerating his ADT well to get outside labs. Patient is in good spirits. I have personally reviewed all diagnostic imaging and reports since last evaluation in Radiation Oncology. REVIEW OF SYSTEMS No notes on file Review of Systems PAST MEDICAL HISTORY Past Medical History: No date: BESSIE (acute kidney injury) (HCC) No date: BPH (benign prostatic hyperplasia) No date: Cancer (HCC) No date: Elevated blood pressure reading with diagnosis of hypertension No date: Nicotine dependence No date: Prostate cancer (HCC) No date: Smoker MEDICATIONS Patient's Medications New Prescriptions No medications on file Previous Medications ACETAMINOPHEN (TYLENOL) 325 MG TABLET Take 2 (two) tablets (650 mg total) by mouth every 6 (six) hours as needed for pain . AMLODIPINE (NORVASC) 2.5 MG TABLET Take 1 (one) tablet (2.5 mg total) by mouth daily . BETHANECHOL (URECHOLINE) 25 MG TABLET Take 1 (one) tablet (25 mg total) by mouth 3 (three) times a day . BETHANECHOL CHLORIDE (URECHOLINE ORAL) Take by mouth . CYCLOBENZAPRINE (FLEXERIL) 10 MG TABLET Take 1 (one) tablet (10 mg total) by mouth 3 (three) times a day as needed for muscle spasms . GABAPENTIN (NEURONTIN) 100 MG CAPSULE Take 1-3 capsules TID as tolerated and helpful for pain, starting 1 TID on day 1, then 2 TID on day 2, then 3 TID . IMIPRAMINE (TOFRANIL) 10 MG TABLET Take 1 (one) tablet (10 mg total) by mouth nightly . MULTIVITAMIN PER TABLET Take 1 (one) tablet by mouth daily . OXYCODONE (ROXICODONE) 5 MG IMMEDIATE RELEASE TABLET Take 1 (one) tablet (5 mg total) by mouth every 6 (six) hours as needed for pain (cancer related pain) . POTASSIUM CITRATE (UROCIT-K) 15 MEQ TBER Take 1 (one) tablet (15 mEq total) by mouth daily . TAMSULOSIN (FLOMAX) 0.4 MG CAPSULE Take 1 (one) capsule (0.4 mg total) by mouth daily AM . TRAMADOL (ULTRAM) 50 MG TABLET TRAZODONE (DESYREL) 50 MG TABLET Take 0.5 (one-half) tablet (25 mg total) by mouth nightly as needed . ZOLPIDEM (AMBIEN CR) 6.25 MG ER TABLET Take 1 (one) tablet (6.25 mg total) by mouth nightly as needed for sleep (Days supply per fill: 30) . Modified Medications No medications on file Discontinued Medications No medications on file ALLERGIES Allergies: Patient has no known allergies. SOCIAL HISTORY reports that he has been smoking cigarettes. He started smoking about 33 years ago. He has a 63 pack-year smoking history. He has never used smokeless tobacco. He reports that he does not currently use alcohol. He reports that he does not use drugs. FAMILY HISTORY Cancer-related family history includes Melanoma in his brother. Objective PHYSICAL EXAM BP 131/76 (BP Location: Left arm) Pulse 78 Wt 81.7 kg (180 lb 1.6 oz) SpO2 97% BMI 25.84 kg/m ECOG Performance 2 - Ambulatory and capable of all selfcare but unable to carry out any work activities. Up and about more than 50% of waking hours General: NAD, patient well appearing. CV: Regular rate. Resp: Breathing is non-labored. Breathing comfortably on RA. Abdomen: Soft, ND. Extremities: No acute findings. No edema Skin: Color, texture and turgor wnl. No rashes and lesions. Neuro: AAO x 3, appropriately interactive, normal affect, speech fluent. Cranial nerves II through XII are intact grossly and symmetrically. No focal neurologic deficit. Please let me know if you have any questions. Jenn Callahan M.D. Radiation Oncology 5:10 PM, 08/29/23 documented in this encounter [facility] 08-22-2023 History of Present illness Narrative Subjective Patient ID: Ginger Weldon is a 62 y.o. male. HPI Patient is here for Lupron injection. Hx of prostate cancer. S/P XRT on 10/07. He needed 2 years of Lupron. He has had 2 Lupron injections already. Last Lupron was 02/06. Most recent PSA was 0.05 on 08/10. Prior PSA was 0.05 and prior PSA was 0.09 on 04/08. S/P DVIU on 07/26. He is taking Flomax Review of Systems Constitutional: Negative for chills and fever. HENT: Negative. Eyes: Negative. Respiratory: Negative for cough and shortness of breath. Cardiovascular: Negative for chest pain and leg swelling. Gastrointestinal: Negative for nausea. Endocrine: Negative. Genitourinary: Negative for difficulty urinating. Negative except for documented in HPI Allergic/Immunologic: Negative. Neurological: Alert & oriented X 3 Hematological: Denies blood thinners Psychiatric/Behavioral: Negative. Objective Physical Exam Vitals and nursing note reviewed. Pulmonary: Effort: Pulmonary effort is normal. Breath sounds: Normal breath sounds. Abdominal: Palpations: Abdomen is soft. Tenderness: There is no abdominal tenderness. Genitourinary: Comments: Kidneys non palpable bilaterally Bladder non palpable or tender Neurological: Mental Status: He is alert. 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 Questions answered. Lupron 45mg IM given Diet changes for prostate health discussed and educational information given. Pros/Cons of prostate health supplements discussed. Treatment options for LUTS reviewed S/P DVIU-Cysto scheduled Discussed timed voiding. Discussed fluid and caffeine intake Treatment options for ED reviewed. Lifestyle change to help prevent UTIs discussed. Encouraged fluid intake. F/U 3 months cysto for Hx of Bladder stone and stricture documented in this encounter [facility] Work Phone: 08-05-2023 History of Present illness Narrative Subjective Patient ID: Ginger Weldon is a 62 y.o. male. HPI Patient is here for negrete removal. S/P DVIU on 07/26. states negrete has been plugged over the weekend and she had to irrigate negrete. He is taking Flomax. hx of prostate cancer. S/P XRT on 10/07. He needed 2 years of Lupron. He has had 2 Lupron injections already. Last Lupron was 02/06. Next Lupron due after 08/07/23. Most recent PSA was 0.05 and prior PSA was 0.09 on 04/08. Review of Systems Constitutional: Negative for chills and fever. HENT: Negative. Eyes: Negative. Respiratory: Negative for cough and shortness of breath. Cardiovascular: Negative for chest pain and leg swelling. Gastrointestinal: Negative for nausea. Endocrine: Negative. Genitourinary: Negative for difficulty urinating. Negative except for documented in HPI Allergic/Immunologic: Negative. Neurological: Alert & oriented X 3 Hematological: Denies blood thinners Psychiatric/Behavioral: Negative. Objective Physical Exam Vitals and nursing note reviewed. Constitutional: General: He is not in acute distress. Appearance: Normal appearance. Pulmonary: Effort: Pulmonary effort is normal. Abdominal: Tenderness: There is no abdominal tenderness. Genitourinary: Comments: Kidneys non palpable bilaterally Bladder non palpable or tender Scrotum no mass, No hydrocele Epididymis- No spermatocele. Non Tender. Testicles: No mass Urethra: No discharge Penis within normal limits... No lesions Prostate -deferred Negrete draining clear urine Neurological: Mental Status: He is alert. Assessment/Plan Diagnoses and all orders for this visit: 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 urethral stricture Urinary hesitancy Malignant neoplasm of prostate (CMS/HCC) Nocturia Urinary frequency Bladder stone All available PSA values reviewed, Options discussed. Questions answered. Diet changes for prostate health discussed and educational information given. Pros/Cons of prostate health supplements discussed. Treatment options for LUTS reviewed OP note reviewed Voiding trial today Pyridium given Discussed timed voiding. Discussed fluid and caffeine intake Treatment options for ED reviewed. Lifestyle change to help prevent UTIs discussed. Encouraged fluid intake. Lidocain3 gel Given Urocit-K Rx given Stone prevention discussed. Diet reviewed. Discussed fluid intake F/U with Lupron as scheduled documented in this encounter [facility] Work Phone: 07-25-2023 History of Present illness Narrative Patient ID: Ginger Weldon is a 62 y.o. male. Procedures The patient was prepped using a Betadine solution. Lidocaine jelly was instilled into the urethra. The flexible cystoscope was sterilely inserted into the urethra and formal cystoscopy performed in a systematic fashion. . For detailed findings of the procedure, please see Dr. Reeves remarks below CIPRO 250MG POBID TIMES 3 DAYS GIVEN URETHRAL STRICTURE AT PROSTATIC URETHRA/BN F/F USED TO DILATE BUT SCOPE COULD NOT PASS F/U CYSTO DVIU. documented in this encounter [facility] Work Phone: 07-24-2023 History of Present illness Narrative Subjective Patient ID: Ginger Weldon is a 62 y.o. male. HPI Patient is here to establish care for hx of prostate cancer. S/P XRT on 10/07. He needed 2 years of Lupron. He has had 2 Lupron injections already. Last Lupron was 02/06. Most recent PSA was 0.09 on 04/08. Chronic LUT'S sx are moderate. He has urgency and frequency. Intermittent dysuria. Denies hematuria. Nocturia x2-3. He is taking Flomax. He states he did have negrete during XRT He states each time the negrete was removed it was very painful and hard to get negrete in. He has a lot of frequency. He states he tried CIC a month ago but catheter would not go in. He states his urine always has sediement and crystals. No hx of kidney stones. Review of Systems Constitutional: Negative for chills and fever. HENT: Negative. Eyes: Negative. Respiratory: Negative for cough and shortness of breath. Cardiovascular: Negative for chest pain and leg swelling. Gastrointestinal: Negative for nausea. Endocrine: Negative. Genitourinary: Negative for difficulty urinating. Negative except for documented in HPI Allergic/Immunologic: Negative. Neurological: Alert & oriented X 3 Hematological: Denies blood thinners Psychiatric/Behavioral: Negative. Objective Physical Exam Vitals and nursing note reviewed. Constitutional: General: He is not in acute distress. Appearance: Normal appearance. Pulmonary: Effort: Pulmonary effort is normal. Abdominal: Tenderness: There is no abdominal tenderness. Genitourinary: Comments: Kidneys non palpable bilaterally Bladder non palpable or tender Scrotum no mass, No hydrocele Epididymis- No spermatocele. Non Tender. Testicles: No mass Urethra: No discharge Penis within normal limits... No lesions Prostate - symmetric, no nodules Seminal Vesicals: No mass. Sphincter tone: normal Neurological: Mental Status: He is alert. Assessment/Plan Diagnoses and all orders for this visit: Malignant neoplasm of prostate (CMS/HCC) Urinary frequency Nocturia Urinary hesitancy All available PSA values reviewed, Options discussed. Questions answered. Reviewed XRT notes Will plan Lupron after 08/07/23 New PSA ordered Diet changes for prostate health discussed and educational information given. Pros/Cons of prostate health supplements discussed. Treatment options for LUTS reviewed Cysto scheduled for Hx of Stricture-Cipro Rx given prior to procedure Discussed timed voiding. Discussed fluid and caffeine intake Treatment options for ED reviewed. Lifestyle change to help prevent UTIs discussed. Encouraged fluid intake. F/U with Cysto and Urethral dilation with F/F Will plan Lupron after 08/07/23 documented in this encounter [facility] Work Phone: 07-05-2023 History of Present illness Narrative Spoke with patient's who notes that he continues to have significant pain. It was she, the patient's , who is a nurse who suggested that this may be neuropathic pain related to radiation. 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 Whitt , but denied by the insurance company. Patient is still having debilitating pain in the penis since radiation for prostate cancer. Will use gabapentin instead for the diagnosis of neuropathic pain and sent to the [place] pharmacy. It is also noted that due to insurance, follow-up care will be manage starting next month by Dr. Reeves. documented in this encounter [facility] 05-20-2023 History of Present illness Narrative Patient dropped off UA and states he is having pain with urination, and blood in his urine. POC inputted. Culture sent. documented in this encounter [facility] 05-01-2023 Evaluation + Plan note Associated Problem(s): Adenocarcinoma of prostate (HCC) History of T1 cN0 M0, PSA 27, Isadora 5+4 prostate cancer. Negative metastatic work-up. He got neoadjuvant hormonal therapy followed by radiation therapy that he completed in September 2022. The plan is for 2 years of adjuvant hormonal therapy. His last Lupron injection was 3 months ago and the PSA is now down to 0.09. He will be due for another Lupron shot in 3 months and will return at that time. Thus far has had an excellent response to treatment. [facility] 05-01-2023 History of Present illness Narrative Images from the original note were not included. DATE: 05/01/2023 CHIEF COMPLAINT: Chief Complaint Patient presents with Follow-up HISTORY OF PRESENT ILLNESS: Ginger Weldon is a 62 y.o. male with history of high risk prostate cancer. He is status post radiation therapy completed in September 2022 with neoadjuvant hormonal therapy. The plan is for 2 years of adjuvant hormonal therapy with Lupron as well. His last Lupron shot was 3 months ago and his PSA is all the way down to 0.09 showing an excellent response. He presents for routine follow-up. He states his big issue continues to be the urinary frequency. He is certainly happier voiding frequently than having a Negrete catheter. He has no dysuria. He has no hematuria. Initially seen by and referred by Kelvin Kohler MD . Duration: Chronic Aggravating Factors: Unknown Alleviating Factors: Radiation therapy and hormonal therapy Associated Symptoms: Urinary frequency Systemic:The patient denies any weight loss, malaise, fatigue, pain, or night sweats. Urinary: Per HPI Bowel: No constipation, diarrhea, or fecal incontinence HISTORY: [facility] Past Medical History: Diagnosis Date BESSIE (acute kidney injury) (HCC) BPH (benign prostatic hyperplasia) Cancer (HCC) Elevated blood pressure reading with diagnosis of hypertension Nicotine dependence Prostate cancer (HCC) Smoker PS Past Surgical History: Procedure Laterality Date CYSTO 10/24/2022 CYSTO URETHERAL DILATION N/A 04/20/2022 Procedure: CYSTOSCOPY, URETHERAL DILATION, PROSTATE ULTRASOUND AND PROSTATE BIOPSY; Surgeon: Florian Whitt MD; Location: [facility] Main OR; Service: Urology NEEDLE BIOPSY PROSTATE N/A 04/20/2022 Procedure: NEEDLE BIOPSY PROSTATE; Surgeon: Florian Whitt MD; Location: [facility] Main OR; Service: Urology PROSTATE MARKER WITH ORGAN AT RISK N/A 08/08/2022 Procedure: Prostate ultrasound with fiducial marker placement and SpaceOAR gel implant; Surgeon: Florian Whitt MD; Location: Main OR; Service: Urology PROSTHODONTIC PROCEDURE UPPER AND LOWER SH Social History Socioeconomic History Marital status: Tobacco Use Smoking status: Every Day Packs/day: 1.50 Years: 42.00 Additional pack years: 0.00 Total pack years: 63.00 Types: Cigarettes Start date: 03/05/1990 Smokeless tobacco: Never Vaping Use Vaping Use: Never used Substance and Sexual Activity Alcohol use: Not Currently Drug use: Never Sexual activity: Not Currently Social Determinants of Health Financial Resource Strain: Low Risk (06/07/2022) Overall Financial Resource Strain (CARDIA) Difficulty of Paying Living Expenses: Not hard at all Food Insecurity: No Food Insecurity (06/07/2022) Hunger Vital Sign Worried About Running Out of Food in the Last Year: Never true Ran Out of Food in the Last Year: Never true Transportation Needs: No Transportation Needs (06/07/2022) PRAPARE - Transportation Lack of Transportation (Medical): No Lack of Transportation (Non-Medical): No Social Connections: Unknown (03/05/2019) Social Connection and Isolation Panel [NHANES] Frequency of Communication with Friends and Family: Once a week Frequency of Social Gatherings with Friends and Family: Once a week Housing Stability: Unknown (06/07/2022) Housing Stability Vital Sign Unable to Pay for Housing in the Last Year: No Unstable Housing in the Last Year: No FH Family History Problem Relation Age of Onset Diabetes Mother Cardiac Disease Father No Known Problems Sister No Known Problems Sister Melanoma Brother No Known Problems Brother Coronary artery disease Maternal Uncle ALLERGIES AND MEDICATIONS Allergies: Patient has no known allergies. Current Outpatient Medications: acetaminophen (TYLENOL) 325 MG tablet, Take 2 (two) tablets (650 mg total) by mouth every 6 (six) hours as needed for pain ., Disp: , Rfl: amLODIPine (NORVASC) 2.5 MG tablet, Take 1 (one) tablet (2.5 mg total) by mouth daily . (Patient taking differently: Take 1 (one) tablet (2.5 mg total) by mouth daily AM .), Disp: 90 tablet, Rfl: 3 cyclobenzaprine (FLEXERIL) 10 MG tablet, Take 1 (one) tablet (10 mg total) by mouth 3 (three) times a day as needed for muscle spasms ., Disp: 30 tablet, Rfl: 3 imipramine (TOFRANIL) 10 MG tablet, Take 1 (one) tablet (10 mg total) by mouth nightly ., Disp: 30 tablet, Rfl: 11 lidocaine (XYLOCAINE) 2 % jelly, Apply topically as needed ., Disp: 30 mL, Rfl: 2 multivitamin per tablet, Take 1 (one) tablet by mouth daily ., Disp: , Rfl: tamsulosin (FLOMAX) 0.4 mg capsule, Take 1 (one) capsule (0.4 mg total) by mouth daily AM ., Disp: 30 capsule, Rfl: 11 traMADoL (ULTRAM) 50 mg tablet, , Disp: , Rfl: bethanechol (URECHOLINE) 25 MG tablet, Take 1 (one) tablet (25 mg total) by mouth 3 (three) times a day . (Patient not taking: Reported on 05/01/2023 .), Disp: 90 tablet, Rfl: 11 bethanechol chloride (URECHOLINE ORAL), Take by mouth ., Disp: , Rfl: oxyCODONE (ROXICODONE) 5 MG immediate release tablet, Take 1 (one) tablet (5 mg total) by mouth every 6 (six) hours as needed for pain (cancer related pain) . (Patient not taking: Reported on 01/07/2023 .), Disp: 40 tablet, Rfl: 0 traZODone (DESYREL) 50 MG tablet, Take 0.5 (one-half) tablet (25 mg total) by mouth nightly as needed ., Disp: 30 tablet, Rfl: 5 zolpidem (AMBIEN CR) 6.25 MG ER tablet, Take 1 (one) tablet (6.25 mg total) by mouth nightly as needed for sleep (Days supply per fill: 30) ., Disp: 30 tablet, Rfl: 5 REVIEW OF SYSTEMS: CONSTITUTIONAL: No weight loss, malaise, or fatigue EYES: No changes in vision, no blurry vision EARS, NOSE, MOUTH, THROAT: No change in hearing, No difficulty swallowing. CARDIOVASCULAR: No chest pain or heart palpitations. RESPIRATORY: No difficulty breathing or wheezing. GI: No changes in bowel habit. No blood in his stool. : No dysuria, hematuria, or urinary tract infections. The rest as above in the HPI. MUSCULOSKELETAL: No joint pain or swelling. VASCULAR: No peripheral edema. No calf pain with exertion. NEURO: No changes in gait or sensation. SKIN: No rashes or lesions. PSYCHIATRIC: No depressive or suicidal thoughts PHYSICAL EXAM: CONSTITUTIONAL: VITAL SIGNS: Vitals: 05/01/23 1127 BP: (!) 162/79 BP Location: Right arm Patient Position: Sitting BP Cuff Size: Adult Pulse: 80 SpO2: 97% GENERAL: Well appearing. No acute distress. EYES: PERRLA, EOMI EARS, NOSE, MOUTH, THROAT: mucous memebranes moist, trachea midline CARDIOVASCULAR: RRR, normal carotid pulse, no peripheral edema. ABDOMEN: Soft, nondistended, nontender. BACK: No CVA tenderness. : Deferred per patient MUSCULOSKELETAL: normal extremity ROM with no edema LYMPH: No cervical or supraclavicular lymphadenopathy NEURO: Normal gait, CN II-XII grossly intact PSYCHATRIC: A & O x3, mood and affect appropriate SKIN: No rashes, ulcers, or lesions visible ASSESSMENT / PLAN: Problem List Items Addressed This Visit Genitourinary Adenocarcinoma of prostate (HCC) History of T1 cN0 M0, PSA 27, Flagler 5+4 prostate cancer. Negative metastatic work-up. He got neoadjuvant hormonal therapy followed by radiation therapy that he completed in September 2022. The plan is for 2 years of adjuvant hormonal therapy. His last Lupron injection was 3 months ago and the PSA is now down to 0.09. He will be due for another Lupron shot in 3 months and will return at that time. Thus far has had an excellent response to treatment. Relevant Orders Measure post void residual (Completed) Other Urinary frequency He continues to have urinary frequency voiding about every 30 minutes or so during the day. He can actually sleep for a few hours at night between voids. He is still better off in his opinion than having a Negrete catheter. He can live with it. PVR today is 103 mL. I am reluctant to place him on anything for the frequency because of his history of retention in the past. We will reassess when he returns in 3 months. Relevant Orders Measure post void residual (Completed) Insomnia We will give him a trial of Ambien to see if helping him sleep a bit better will decrease some of his nocturia at least. Relevant Medications zolpidem (AMBIEN CR) 6.25 MG ER tablet We discussed the differential diagnosis which includes: Patient wants to pursue evaluation with: We discussed treatment options including: Florian Whitt M.D [facility] documented in this encounter [facility] 05-01-2023 Miscellaneous Notes Associated Problem(s): Adenocarcinoma of prostate (HCC) History of T1 cN0 M0, PSA 27, Flagler 5+4 prostate cancer. Negative metastatic work-up. He got neoadjuvant hormonal therapy followed by radiation therapy that he completed in September 2022. The plan is for 2 years of adjuvant hormonal therapy. His last Lupron injection was 3 months ago and the PSA is now down to 0.09. He will be due for another Lupron shot in 3 months and will return at that time. Thus far has had an excellent response to treatment. Associated Problem(s): Insomnia We will give him a trial of Ambien to see if helping him sleep a bit better will decrease some of his nocturia at least. Associated Problem(s): Urinary frequency He continues to have urinary frequency voiding about every 30 minutes or so during the day. He can actually sleep for a few hours at night between voids. He is still better off in his opinion than having a Negrete catheter. He can live with it. PVR today is 103 mL. I am reluctant to place him on anything for the frequency because of his history of retention in the past. We will reassess when he returns in 3 months. documented in this encounter [facility] 05-01-2023 Evaluation + Plan note Associated Problem(s): Insomnia We will give him a trial of Ambien to see if helping him sleep a bit better will decrease some of his nocturia at least. [facility] 05-01-2023 Evaluation + Plan note Associated Problem(s): Urinary frequency He continues to have urinary frequency voiding about every 30 minutes or so during the day. He can actually sleep for a few hours at night between voids. He is still better off in his opinion than having a Negrete catheter. He can live with it. PVR today is 103 mL. I am reluctant to place him on anything for the frequency because of his history of retention in the past. We will reassess when he returns in 3 months. [facility] 04-15-2023 History of Present illness Narrative [facility] [address] [facility] [id number] MD Ariadna Walker MD Praveen Dubey, MD Andrew Freeman, MD David Howell, MD Vijay Kudithipudi, MD Michael Siedow, MD RADIATION ONCOLOGY ESTABLISHED PATIENT NOTE Patient Name: Ginger Weldon Date of : 1960 Date of Service: 04/15/2023 DIAGNOSIS: Adenocarcinoma of prostate (HCC) [C61] STAGE: Cancer Staging Adenocarcinoma of prostate (HCC) Staging form: Prostate, AJCC 8th Edition - Clinical stage from 04/20/2022: Stage IIIC (cT1c, cN0, cM0, PSA: 27, Grade Group: 5) - Signed by Maureen Parsons MD on 06/26/2022 TREATMENT SUMMARY: PROS_HYPO21 10/05/2022 Value Treatment Date Reference Point PROST_PELV_LN; cp PROST_PELV_LN 10/05/2022 Total Dose to Date (cGy) 7,000; 7,317 10/05/2022 Prescription Dose (cGy) 7,000 10/05/2022 Fractions Treated to Date 28 10/05/2022 Total Fractions Prescribed 28 10/05/2022 Prescribed Dose per Fraction (cGy) 250 10/05/2022 Elapsed Days 38 10/05/2022 Unverified data imported from [employer]. May not reflect actual given/total prescription dose. ECOG Performance 2 - Ambulatory and capable of all selfcare but unable to carry out any work activities. Up and about more than 50% of waking hours IMPRESSION: Ginger Weldon is a 62 y.o. M with very high risk prostate cancer (cT3/4 cN1, PSA 27.10, Grade Group 5) s/p PMSA with multiple hypermetabolic regional pelvic lymph nodes who completed a course of definitive external beam radiation therapy on 10/05/2022. RECOMMENDATIONS: Overall the patient is doing well and is recovered from all his acute radiation-related toxicities. The patient has a persistent increase in urinary frequency however this is noticeably improved since withdrawal of his Negrete catheter which is present throughout the duration of his radiation therapy. He was recently started on imipramine (last week) however has not noticed a benefit at this time. The patient will continue to follow with Dr. Wihtt of urology who is not in favor of any surgical intervention at this time. The patient is tolerating his ADT well and is planning on two years of therapy under the care of Dr. Whitt. Clinically he is NAZARIO, we will obtain a PSA in 3 months (6 months from the conclusion of his EBRT) and continue to trend thereafter. The patient was in agreement with my plan and voiced understanding. He was provided with my contact information and encouraged to reach out to me if he needed anything in the future. HISTORY Patient presents in clinic with his this morning and is overall doing well. He still has mild to severe urinary frequency having to use the bathroom roughly 30 to 45 minutes each hour. He says this is noticeably better at night and when he is laying on his back. He denies any dysuria or hematuria. Notably, his bowels have returned to normal he is having regular bowel movements without any pain with defecation or blood in his stool. He denies any urinary or fecal incontinence. He still has mild fatigue present from his radiation therapy. He has no questions or concerns. I have personally reviewed all diagnostic imaging and reports since last evaluation in Radiation Oncology. REVIEW OF SYSTEMS No notes on file Review of Systems PAST MEDICAL HISTORY Past Medical History: No date: BESSIE (acute kidney injury) ([facility]) No date: BPH (benign prostatic hyperplasia) No date: Cancer (HCC) No date: Elevated blood pressure reading with diagnosis of hypertension No date: Nicotine dependence No date: Prostate cancer (HCC) No date: Smoker MEDICATIONS Patient's Medications New Prescriptions No medications on file Previous Medications ACETAMINOPHEN (TYLENOL) 325 MG TABLET Take 2 (two) tablets (650 mg total) by mouth every 6 (six) hours as needed for pain . AMLODIPINE (NORVASC) 2.5 MG TABLET Take 1 (one) tablet (2.5 mg total) by mouth daily . BETHANECHOL (URECHOLINE) 25 MG TABLET Take 1 (one) tablet (25 mg total) by mouth 3 (three) times a day . BETHANECHOL CHLORIDE (URECHOLINE ORAL) Take by mouth . CYCLOBENZAPRINE (FLEXERIL) 10 MG TABLET Take 1 (one) tablet (10 mg total) by mouth 3 (three) times a day as needed for muscle spasms . IMIPRAMINE (TOFRANIL) 10 MG TABLET Take 1 (one) tablet (10 mg total) by mouth nightly . LIDOCAINE (XYLOCAINE) 2 % JELLY Apply topically as needed . MULTIVITAMIN PER TABLET Take 1 (one) tablet by mouth daily . OXYCODONE (ROXICODONE) 5 MG IMMEDIATE RELEASE TABLET Take 1 (one) tablet (5 mg total) by mouth every 6 (six) hours as needed for pain (cancer related pain) . TAMSULOSIN (FLOMAX) 0.4 MG CAPSULE Take 1 (one) capsule (0.4 mg total) by mouth daily AM . TRAMADOL (ULTRAM) 50 MG TABLET TRAZODONE (DESYREL) 50 MG TABLET Take 0.5 (one-half) tablet (25 mg total) by mouth nightly as needed . Modified Medications No medications on file Discontinued Medications No medications on file ALLERGIES Allergies: Patient has no known allergies. SOCIAL HISTORY reports that he has been smoking cigarettes. He started smoking about 33 years ago. He has a 63.00 pack-year smoking history. He has never used smokeless tobacco. He reports that he does not currently use alcohol. He reports that he does not use drugs. FAMILY HISTORY Cancer-related family history includes Melanoma in his brother. Objective PHYSICAL EXAM BP (!) 148/67 (BP Location: Right arm) Pulse 83 Wt 81.6 kg (180 lb) BMI 25.83 kg/m ECOG Performance 2 - Ambulatory and capable of all selfcare but unable to carry out any work activities. Up and about more than 50% of waking hours General: NAD, patient well appearing. CV: Regular rate. Resp: Breathing is non-labored. Breathing comfortably on RA. Abdomen: Soft, ND. Extremities: No acute findings. No edema Skin: Color, texture and turgor wnl. No rashes and lesions. Neuro: AAO x 3, appropriately interactive, normal affect, speech fluent. Cranial nerves II through XII are intact grossly and symmetrically. No focal neurologic deficit. Please let me know if you have any questions. Jenn Callahan M.D. Radiation Oncology 5:10 PM, 04/15/23 documented in this encounter [facility] 03-28-2023 History of Present illness Narrative Patient: Ginger Weldon : 1960 Date: 03/28/23 This 62 y.o. male presents for Hypertension (OV 4 MTH FU) History of Present Illness: HPI Hypertension Noted to be in good control in July on amlodipine 2.5 mg daily. Had been some issues with leg swelling. Also problems with sleep attempted to be addressed with mirtazapine 15 mg, but is now on trazadone but has to urinate every 1.5 hours . Past Medical/Surgical History: Past Medical History: Diagnosis Date BESSIE (acute kidney injury) (HCC) BPH (benign prostatic hyperplasia) Cancer (HCC) Elevated blood pressure reading with diagnosis of hypertension Nicotine dependence Prostate cancer (HCC) Smoker Past Surgical History: Procedure Laterality Date CYSTO 10/24/2022 CYSTO URETHERAL DILATION N/A 04/20/2022 Procedure: CYSTOSCOPY, URETHERAL DILATION, PROSTATE ULTRASOUND AND PROSTATE BIOPSY; Surgeon: Florian Whitt MD; Location: [facility] Main OR; Service: Urology NEEDLE BIOPSY PROSTATE N/A 04/20/2022 Procedure: NEEDLE BIOPSY PROSTATE; Surgeon: Florian Whitt MD; Location: [facility] Main OR; Service: Urology PROSTATE MARKER WITH ORGAN AT RISK N/A 08/08/2022 Procedure: Prostate ultrasound with fiducial marker placement and SpaceOAR gel implant; Surgeon: Florian Whitt MD; Location: Main OR; Service: Urology PROSTHODONTIC PROCEDURE UPPER AND LOWER Family History: Family History Problem Relation Age of Onset Diabetes Mother Cardiac Disease Father No Known Problems Sister No Known Problems Sister Melanoma Brother No Known Problems Brother Coronary artery disease Maternal Uncle Social History: Social History Socioeconomic History Marital status: Tobacco Use Smoking status: Every Day Packs/day: 1.50 Years: 42.00 Additional pack years: 0.00 Total pack years: 63.00 Types: Cigarettes Start date: 03/05/1990 Smokeless tobacco: Never Vaping Use Vaping Use: Never used Substance and Sexual Activity Alcohol use: Not Currently Drug use: Never Sexual activity: Not Currently Social Determinants of Health Financial Resource Strain: Low Risk (06/07/2022) Overall Financial Resource Strain (CARDIA) Difficulty of Paying Living Expenses: Not hard at all Food Insecurity: No Food Insecurity (06/07/2022) Hunger Vital Sign Worried About Running Out of Food in the Last Year: Never true Ran Out of Food in the Last Year: Never true Transportation Needs: No Transportation Needs (06/07/2022) PRAPARE - Transportation Lack of Transportation (Medical): No Lack of Transportation (Non-Medical): No Social Connections: Unknown (03/05/2019) Social Connection and Isolation Panel [NHANES] Frequency of Communication with Friends and Family: Once a week Frequency of Social Gatherings with Friends and Family: Once a week Housing Stability: Unknown (06/07/2022) Housing Stability Vital Sign Unable to Pay for Housing in the Last Year: No Unstable Housing in the Last Year: No Allergies: No Known Allergies Medications: Current Outpatient Medications Medication Sig Dispense Refill acetaminophen (TYLENOL) 325 MG tablet Take 2 (two) tablets (650 mg total) by mouth every 6 (six) hours as needed for pain . amLODIPine (NORVASC) 2.5 MG tablet Take 1 (one) tablet (2.5 mg total) by mouth daily . (Patient taking differently: Take 1 (one) tablet (2.5 mg total) by mouth daily AM .) 90 tablet 3 bethanechol (URECHOLINE) 25 MG tablet Take 1 (one) tablet (25 mg total) by mouth 3 (three) times a day . 90 tablet 11 bethanechol chloride (URECHOLINE ORAL) Take by mouth . tamsulosin (FLOMAX) 0.4 mg capsule Take 1 (one) capsule (0.4 mg total) by mouth daily AM . traMADoL (ULTRAM) 50 mg tablet traZODone (DESYREL) 50 MG tablet Take 0.5 (one-half) tablet (25 mg total) by mouth nightly as needed . 30 tablet 5 cyclobenzaprine (FLEXERIL) 10 MG tablet Take 1 (one) tablet (10 mg total) by mouth 3 (three) times a day as needed for muscle spasms . (Patient not taking: Reported on 01/07/2023 .) 30 tablet 3 imipramine (TOFRANIL) 10 MG tablet Take 1 (one) tablet (10 mg total) by mouth nightly . 30 tablet 11 lidocaine (XYLOCAINE) 2 % jelly Apply topically as needed . (Patient not taking: Reported on 01/07/2023 .) 30 mL 2 multivitamin per tablet Take 1 (one) tablet by mouth daily . oxyCODONE (ROXICODONE) 5 MG immediate release tablet Take 1 (one) tablet (5 mg total) by mouth every 6 (six) hours as needed for pain (cancer related pain) . (Patient not taking: Reported on 01/07/2023 .) 40 tablet 0 No current facility-administered medications for this visit. Review of Systems: Review of Systems Physical Exam: Vital Signs: BP 135/67 (BP Location: Left arm, Patient Position: Sitting, BP Cuff Size: Adult) Pulse 77 Temp 98.7 F (37.1 C) (Infrared) Ht 5' 10 Wt 81 kg (178 lb 9.6 oz) SpO2 97% BMI 25.63 kg/m Physical Exam Constitutional: General: He is not in acute distress. Appearance: Normal appearance. He is ill-appearing. Cardiovascular: Rate and Rhythm: Normal rate and regular rhythm. Heart sounds: Normal heart sounds. No murmur heard. Pulmonary: Effort: Pulmonary effort is normal. Breath sounds: Normal breath sounds. Neurological: Mental Status: He is alert and oriented to person, place, and time. Psychiatric: Mood and Affect: Mood normal. Behavior: Behavior normal. Thought Content: Thought content normal. Judgment: Judgment normal. Assessment/Plan: Ginger was seen today for hypertension. Diagnoses and all orders for this visit: Primary hypertension Urinary urgency - imipramine (TOFRANIL) 10 MG tablet; Take 1 (one) tablet (10 mg total) by mouth nightly . Return in about 6 months (around 09/27/2023). There are no Patient Instructions on file for this visit. For any new medications prescribed today, patient was educated about indications for the medication, how to take the medication and potential side effects of the medications. Goals None documented in this encounter [facility] 02-15-2023 Telephone encounter Note ----- Message from Rosetta Stephens sent at 02/15/2023 1:08 PM EDT ----- Regarding: rx refill MEDICATION REFILL REQUEST: PCP: Kelvin Kohler MD Patient called 02/15/23 and is requesting a medication refill for traZODone (DESYREL) 50 MG tablet. This was confirmed from the current medication list found in the patients chart. Supply Requested: # of days: 30 days Method of receiving: Send to pharmacy Last set of flowsheet rows for OARRS report: OARRS/NARxCHECK Report Received and Assessed: No data found Date controlled substance agreement signed: No data found Date of last drug screen: No data found Functional Assessment: No data found Will this refill be sent to the preferred pharmacy listed below? Yes Preferred pharmacies: [facility] [address] [place] [address] [address] [id number] Pt Call Back Number Work Phone Not on file. Patient call back message sent to the primary care clinical pool. Rosetta Stephens [facility] 02-15-2023 Miscellaneous Notes ----- Message from Rosetta Stephens sent at 02/15/2023 1:08 PM EDT ----- Regarding: rx refill MEDICATION REFILL REQUEST: PCP: Kelvin Kohler MD Patient called 02/15/23 and is requesting a medication refill for traZODone (DESYREL) 50 MG tablet. This was confirmed from the current medication list found in the patients chart. Supply Requested: # of days: 30 days Method of receiving: Send to pharmacy Last set of flowsheet rows for OARRS report: OARRS/NARxCHECK Report Received and Assessed: No data found Date controlled substance agreement signed: No data found Date of last drug screen: No data found Functional Assessment: No data found Will this refill be sent to the preferred pharmacy listed below? Yes Preferred pharmacies: [facility] [address] [place] [address] Pt Call Back Number Work Phone Not on file. Patient call back message sent to the primary care clinical pool. Rosetta Stephens documented in this encounter [facility] 01-18-2023 History of Present illness Narrative Spoke with patients Claudia and explained the purpose of the Cancer Treatment Summary. She was agreeable to review on the phone. Summary was reviewed including physicians and treatment received. Claudia states Martin is doing well, is having issues with urgency and frequency with voiding. She denies any pain but states its been a challenge to get Martin out of the house with his frequency issues. They have a follow up appointment with Dr. Whitt on 01/30 to discuss. Since Martin is not currently receiving any cancer treatments at this time. Will sign off navigation, but will re-engage if needed. Patient's address was verified and copy of their SCP will be sent to them in the mail. Lee Ann ROBLES rn access Nurse Navigator [facility] [phone] documented in this encounter [facility] 01-07-2023 History of Present illness Narrative [facility] [address] [facility] [id number] MD Ariadna Walker MD Praveen Dubey, MD Andrew Freeman, MD David Howell, MD Vijay Kudithipudi, MD Michael Siedow, MD Rebekah Young, MD RADIATION ONCOLOGY ESTABLISHED PATIENT NOTE Patient Name: Ginger Weldon Date of : 1960 Date of Service: 01/07/2023 DIAGNOSIS: Adenocarcinoma of prostate (HCC) [C61] STAGE: Cancer Staging Adenocarcinoma of prostate (HCC) Staging form: Prostate, AJCC 8th Edition - Clinical stage from 04/20/2022: Stage IIIC (cT1c, cN0, cM0, PSA: 27, Grade Group: 5) - Signed by Maureen Parsons MD on 06/26/2022 TREATMENT SUMMARY: PROS_HYPO21 10/05/2022 Value Treatment Date Reference Point PROST_PELV_LN; cp PROST_PELV_LN 10/05/2022 Total Dose to Date (cGy) 7,000; 7,317 10/05/2022 Prescription Dose (cGy) 7,000 10/05/2022 Fractions Treated to Date 28 10/05/2022 Total Fractions Prescribed 28 10/05/2022 Prescribed Dose per Fraction (cGy) 250 10/05/2022 Elapsed Days 38 10/05/2022 Unverified data imported from [employer]. May not reflect actual given/total prescription dose. ECOG Performance 1 - Restricted in physically strenuous activity but ambulatory and able to carry out work of a light or sedentary nature, e.g., light house work, office work IMPRESSION: Ginger Weldon is a 62 y.o. M with very high risk prostate cancer (cT3/4 cN1, PSA 27.10, Grade Group 5) s/p PMSA with multiple hypermetabolic regional pelvic lymph nodes. Patient completed definitive hypofractionated external beam radiation therapy on 10/05/2022 with plans for up to 2 years of ADT. Patient will return to clinic on 04/15/2023. RECOMMENDATIONS: Overall the patient is doing well and is recovered from all his acute radiation-related toxicities. Clinically he is NAZARIO, we will obtain a PSA in 3 months (6 months from the conclusion of his EBRT) and continue to trend thereafter. The patient has had a noticeable improvement in his urinary function and has been without the use of a Negrete catheter for the past 4 to 6 weeks. He is able to void, albeit frequently, which is a drastic improvement since he completed radiation therapy. The patient will continue to follow with Dr. Whitt for further management. The patient was in agreement with my plan and voiced understanding. He was provided with my contact information and encouraged to reach out to me if he needed anything in the future. HISTORY Patient presents in clinic with his and is overall doing well. He had his Negrete catheter subsequently removed following completion of his radiation therapy and has been voiding on his own since then. He has occasional dysuria however he does not feel this is a UTI or infectious nidus. He denies is any changes to his bowel habits including persistent loose stools or any bleeding per rectum. His energy has returned to baseline. He is tolerating his ADT well without any side effects. I have personally reviewed all diagnostic imaging and reports since last evaluation in Radiation Oncology. REVIEW OF SYSTEMS No notes on file Review of Systems PAST MEDICAL HISTORY Past Medical History: No date: BESSIE (acute kidney injury) (HCC) No date: BPH (benign prostatic hyperplasia) No date: Cancer (HCC) No date: Elevated blood pressure reading with diagnosis of hypertension No date: Nicotine dependence No date: Prostate cancer (HCC) No date: Smoker MEDICATIONS Patient's Medications New Prescriptions No medications on file Previous Medications ACETAMINOPHEN (TYLENOL) 325 MG TABLET Take 2 (two) tablets (650 mg total) by mouth every 6 (six) hours as needed for pain . AMLODIPINE (NORVASC) 2.5 MG TABLET Take 1 (one) tablet (2.5 mg total) by mouth daily . BETHANECHOL CHLORIDE (URECHOLINE ORAL) Take by mouth . CYCLOBENZAPRINE (FLEXERIL) 10 MG TABLET Take 1 (one) tablet (10 mg total) by mouth 3 (three) times a day as needed for muscle spasms . LIDOCAINE (XYLOCAINE) 2 % JELLY Apply topically as needed . MIRTAZAPINE (REMERON) 15 MG TABLET Take 1 (one) tablet (15 mg total) by mouth nightly . OXYBUTYNIN (DITROPAN-XL) 10 MG 24 HR TABLET Take 1 (one) tablet (10 mg total) by mouth daily . OXYCODONE (ROXICODONE) 5 MG IMMEDIATE RELEASE TABLET Take 1 (one) tablet (5 mg total) by mouth every 6 (six) hours as needed for pain (cancer related pain) . TAMSULOSIN (FLOMAX) 0.4 MG CAPSULE Take 1 (one) capsule (0.4 mg total) by mouth daily AM . TRAMADOL (ULTRAM) 50 MG TABLET TRAZODONE (DESYREL) 50 MG TABLET Take 0.5 (one-half) tablet (25 mg total) by mouth nightly as needed . Modified Medications No medications on file Discontinued Medications No medications on file ALLERGIES Allergies: Patient has no known allergies. SOCIAL HISTORY reports that he has been smoking cigarettes. He started smoking about 32 years ago. He has a 63.00 pack-year smoking history. He has never used smokeless tobacco. He reports that he does not currently use alcohol. He reports that he does not use drugs. FAMILY HISTORY Cancer-related family history includes Melanoma in his brother. Objective PHYSICAL EXAM BP 133/71 (BP Location: Left arm) Pulse 67 Wt 82.6 kg (182 lb) BMI 26.11 kg/m ECOG Performance 1 - Restricted in physically strenuous activity but ambulatory and able to carry out work of a light or sedentary nature, e.g., light house work, office work General: NAD, patient well appearing. CV: Regular rate. Resp: Breathing is non-labored. Breathing comfortably on RA. Abdomen: Soft, ND. Extremities: No acute findings. No edema Skin: Color, texture and turgor wnl. No rashes and lesions. Neuro: AAO x 3, appropriately interactive, normal affect, speech fluent. Cranial nerves II through XII are intact grossly and symmetrically. No focal neurologic deficit. Please let me know if you have any questions. Jenn Callahan M.D. Radiation Oncology 2:07 PM, 01/07/23 documented in this encounter [facility] 10-25-2022 History of Present illness Narrative Patient: Ginger Weldon : 1960 Date: 10/25/22 This 61 y.o. male presents for Hypertension and Adenocarcinoma of protate (OV 3 MTH F/U) History of Present Illness: HPI HYPERTENSION Low-dose amlodipine 2.5 mg daily. Renal function continues to be good with creatinine of 0.97 1-month ago. PROSTATE CA Currently doing intermittent self-catheterization. Seen by Dr. Whitt yesterday at which time Negrete catheter was removed. Apparently having difficulty with bladder spasm and is attempting to see how he does without oxybutynin. Past Medical/Surgical History: Past Medical History: Diagnosis Date BESSIE (acute kidney injury) (HCC) BPH (benign prostatic hyperplasia) Cancer (HCC) Elevated blood pressure reading with diagnosis of hypertension Nicotine dependence Prostate cancer (HCC) Smoker Past Surgical History: Procedure Laterality Date CYSTO 10/24/2022 CYSTO URETHERAL DILATION N/A 04/20/2022 Procedure: CYSTOSCOPY, URETHERAL DILATION, PROSTATE ULTRASOUND AND PROSTATE BIOPSY; Surgeon: Florian Whitt MD; Location: [facility] Main OR; Service: Urology NEEDLE BIOPSY PROSTATE N/A 04/20/2022 Procedure: NEEDLE BIOPSY PROSTATE; Surgeon: Florian Whitt MD; Location: [facility] Main OR; Service: Urology PROSTATE MARKER WITH ORGAN AT RISK N/A 08/08/2022 Procedure: Prostate ultrasound with fiducial marker placement and SpaceOAR gel implant; Surgeon: Florian Whitt MD; Location: Main OR; Service: Urology PROSTHODONTIC PROCEDURE UPPER AND LOWER Family History: Family History Problem Relation Age of Onset Diabetes Mother Cardiac Disease Father No Known Problems Sister No Known Problems Sister Melanoma Brother No Known Problems Brother Coronary artery disease Maternal Uncle Social History: Social History Socioeconomic History Marital status: Tobacco Use Smoking status: Every Day Packs/day: 1.50 Years: 42.00 Pack years: 63.00 Types: Cigarettes Start date: 03/05/1990 Smokeless tobacco: Never Vaping Use Vaping Use: Never used Substance and Sexual Activity Alcohol use: Not Currently Drug use: Never Sexual activity: Not Currently Social Determinants of Health Financial Resource Strain: Low Risk (06/07/2022) Overall Financial Resource Strain (CARDIA) Difficulty of Paying Living Expenses: Not hard at all Food Insecurity: No Food Insecurity (06/07/2022) Hunger Vital Sign Worried About Running Out of Food in the Last Year: Never true Ran Out of Food in the Last Year: Never true Transportation Needs: No Transportation Needs (06/07/2022) PRAPARE - Transportation Lack of Transportation (Medical): No Lack of Transportation (Non-Medical): No Social Connections: Unknown (03/05/2019) Social Connection and Isolation Panel [NHANES] Frequency of Communication with Friends and Family: Once a week Frequency of Social Gatherings with Friends and Family: Once a week Housing Stability: Unknown (06/07/2022) Housing Stability Vital Sign Unable to Pay for Housing in the Last Year: No Unstable Housing in the Last Year: No Allergies: No Known Allergies Medications: Current Outpatient Medications Medication Sig Dispense Refill amLODIPine (NORVASC) 2.5 MG tablet Take 1 (one) tablet (2.5 mg total) by mouth daily . (Patient taking differently: Take 1 (one) tablet (2.5 mg total) by mouth daily AM .) 90 tablet 3 ciprofloxacin HCl (CIPRO) 500 MG tablet Take 1 (one) tablet (500 mg total) by mouth 2 (two) times a day for 3 days . 6 tablet 0 lidocaine (XYLOCAINE) 2 % jelly Apply topically as needed . 30 mL 2 oxybutynin (DITROPAN-XL) 10 MG 24 hr tablet Take 1 (one) tablet (10 mg total) by mouth daily . 30 tablet 11 oxyCODONE (ROXICODONE) 5 MG immediate release tablet Take 1 (one) tablet (5 mg total) by mouth every 6 (six) hours as needed for pain (cancer related pain) . 40 tablet 0 tamsulosin (FLOMAX) 0.4 mg capsule Take 1 (one) capsule (0.4 mg total) by mouth daily AM . acetaminophen (TYLENOL) 325 MG tablet Take 2 (two) tablets (650 mg total) by mouth every 6 (six) hours as needed for pain . cyclobenzaprine (FLEXERIL) 10 MG tablet Take 1 (one) tablet (10 mg total) by mouth 3 (three) times a day as needed for muscle spasms . 30 tablet 3 mirtazapine (REMERON) 15 MG tablet Take 1 (one) tablet (15 mg total) by mouth nightly . 30 tablet 0 traMADoL (ULTRAM) 50 mg tablet No current facility-administered medications for this visit. Review of Systems: Review of Systems Respiratory: Negative. Cardiovascular: Positive for leg swelling (ankle swelling on amlodipine .). Genitourinary: Positive for difficulty urinating (urinary spasm / self cath). Psychiatric/Behavioral: Positive for dysphoric mood. Physical Exam: Vital Signs: BP (!) 145/70 (BP Location: Left arm) Pulse 69 Temp 99.1 F (37.3 C) (Infrared) Ht 5' 10 Wt 86.5 kg (190 lb 9.6 oz) SpO2 95% BMI 27.35 kg/m Physical Exam Constitutional: Appearance: Normal appearance. Cardiovascular: Rate and Rhythm: Normal rate and regular rhythm. Heart sounds: Normal heart sounds. No murmur heard. Pulmonary: Effort: Pulmonary effort is normal. Breath sounds: Normal breath sounds. Neurological: Mental Status: He is alert. Psychiatric: Attention and Perception: Attention normal. Mood and Affect: Mood is depressed. Speech: Speech normal. Behavior: Behavior normal. Thought Content: Thought content normal. Cognition and Memory: Cognition and memory normal. Judgment: Judgment normal. Assessment/Plan: Ginger was seen today for hypertension and adenocarcinoma of protate. Diagnoses and all orders for this visit: Hypertension, unspecified type Adenocarcinoma of prostate (HCC) Painful bladder spasm - cyclobenzaprine (FLEXERIL) 10 MG tablet; Take 1 (one) tablet (10 mg total) by mouth 3 (three) times a day as needed for muscle spasms . Sleep disorder - mirtazapine (REMERON) 15 MG tablet; Take 1 (one) tablet (15 mg total) by mouth nightly . Return in about 4 months (around 02/25/2023). There are no Patient Instructions on file for this visit. For any new medications prescribed today, patient was educated about indications for the medication, how to take the medication and potential side effects of the medications. Goals None documented in this encounter [facility] 10-24-2022 Note Addended by: REY HIDALGO on: 10/24/2022 10:14 AM Modules accepted: Orders [facility] 10-24-2022 Note Addended by: REY HIDALGO on: 10/24/2022 10:14 AM Modules accepted: Orders [facility] 10-24-2022 Note Addended by: REY HIDALGO on: 10/24/2022 10:14 AM Modules accepted: Orders [facility] 10-24-2022 Miscellaneous Notes Addended by: REY BURKETT on: 10/24/2022 10:14 AM Modules accepted: Orders documented in this encounter [facility] 10-24-2022 Miscellaneous Notes Addended by: REY BURKETT on: 10/24/2022 10:14 AM Modules accepted: Orders documented in this encounter [facility] 10-24-2022 History of Present illness Narrative Patient unable to void post cystoscopy. Education provided on risks and benefits of CIC. Demonstration provided on proper technique to self catheterize. Patient verbalizes understanding. Patient washes hands, and self demonstrates technique properly using 14 FR straight tip with lubrication. Tolerated well. Patient states discomfort with CIC is more tolerable than having negrete catheter in place. Education provided regarding monitoring intake and output. Bladder diary and voiding container provided to patient. Verbalizes understand. Denies questions or concerns at this time. Samples provided to see what will work best for patient. Instructed to call the office with any questions or concerns. Requested a call to office with update on Saturday unless calls in sooner. Associated Order(s): Cystoscopy Post-Procedure Diagnose(s): Adenocarcinoma of prostate (HCC); Urinary retention with incomplete bladder emptying Cystoscopy Date/Time: 10/24/2022 9:39 AM Performed by: Florian Whitt MD Authorized by: Florian Whitt MD Verbal consent: obtained Written consent: obtained Consent given by: patient Relevant documents: Relevent documents present and verified. Medical history, medications, allergies and physical assessment reviewed/completed Test results: test results available and properly labeled Site: site marked by physician or proceduralist who is privileged and credentialed to perform procedure Relevant imaging studies available and labeled: Yes Patient identity confirmed: verified patient name and Time out: Immediately prior to procedure a time out was called to verify the correct patient, procedure, equipment, sales support consultant and site/side marked as required. Timeout performed at: 10/24/2022 9:39 AM Physician or proceduralist has discussed critical or nonroutine steps, procedure duration and anticipated blood loss: Yes All team members agree to proceed: Yes Preparation: Patient was prepped and draped in usual sterile fashion Local anesthesia used?: Yes Anesthesia: Local infiltration Local anesthetic: Lidocaine/prilocaine emulsionPatient sedated: no Patient tolerance: Patient tolerated the procedure well with no immediate complications Procedure details: The patient's Negrete catheter was removed. This was uncomfortable for him. It had some calcifications and sediment on the tip of the catheter and beginning to plug the movement. He was then prepped in usual sterile fashion. Lidocaine jelly was administered per urethra. Flexible scope was then passed to the urethra under direct vision. The penile urethra was unremarkable. The external sphincter was intact. His prostate was actually relatively patent and the scope was able to pass into the bladder. There was a fair amount of mucus and some sediment within the bladder but no obvious tumors or stones. The scope was removed after filling his bladder with a bit of saline. He tolerated the procedure reasonably well although it was uncomfortable for him. documented in this encounter [facility] 10-24-2022 History of Present illness Narrative Patient unable to void post cystoscopy. Education provided on risks and benefits of CIC. Demonstration provided on proper technique to self catheterize. Patient verbalizes understanding. Patient washes hands, and self demonstrates technique properly using 14 FR straight tip with lubrication. Tolerated well. Patient states discomfort with CIC is more tolerable than having negrete catheter in place. Education provided regarding monitoring intake and output. Bladder diary and voiding container provided to patient. Verbalizes understand. Denies questions or concerns at this time. Samples provided to see what will work best for patient. Instructed to call the office with any questions or concerns. Requested a call to office with update on Saturday unless calls in sooner. The patient has retention of urine R33.9 and is using CIC 4 times per day indefinitely, for a period greater than 3 months. Associated Order(s): Cystoscopy Post-Procedure Diagnose(s): Adenocarcinoma of prostate (HCC); Urinary retention with incomplete bladder emptying Cystoscopy Date/Time: 10/24/2022 9:39 AM Performed by: Florian Whitt MD Authorized by: Florian Whitt MD Verbal consent: obtained Written consent: obtained Consent given by: patient Relevant documents: Relevent documents present and verified. Medical history, medications, allergies and physical assessment reviewed/completed Test results: test results available and properly labeled Site: site marked by physician or proceduralist who is privileged and credentialed to perform procedure Relevant imaging studies available and labeled: Yes Patient identity confirmed: verified patient name and Time out: Immediately prior to procedure a time out was called to verify the correct patient, procedure, equipment, sales support consultant and site/side marked as required. Timeout performed at: 10/24/2022 9:39 AM Physician or proceduralist has discussed critical or nonroutine steps, procedure duration and anticipated blood loss: Yes All team members agree to proceed: Yes Preparation: Patient was prepped and draped in usual sterile fashion Local anesthesia used?: Yes Anesthesia: Local infiltration Local anesthetic: Lidocaine/prilocaine emulsionPatient sedated: no Patient tolerance: Patient tolerated the procedure well with no immediate complications Procedure details: The patient's Negrete catheter was removed. This was uncomfortable for him. It had some calcifications and sediment on the tip of the catheter and beginning to plug the movement. He was then prepped in usual sterile fashion. Lidocaine jelly was administered per urethra. Flexible scope was then passed to the urethra under direct vision. The penile urethra was unremarkable. The external sphincter was intact. His prostate was actually relatively patent and the scope was able to pass into the bladder. There was a fair amount of mucus and some sediment within the bladder but no obvious tumors or stones. The scope was removed after filling his bladder with a bit of saline. He tolerated the procedure reasonably well although it was uncomfortable for him. documented in this encounter [facility] 10-24-2022 History of Present illness Narrative Associated Order(s): Cystoscopy Post-Procedure Diagnose(s): Adenocarcinoma of prostate (HCC); Urinary retention with incomplete bladder emptying Cystoscopy Date/Time: 10/24/2022 9:39 AM Performed by: Florian Whitt MD Authorized by: Florian Whitt MD Verbal consent: obtained Written consent: obtained Consent given by: patient Relevant documents: Relevent documents present and verified. Medical history, medications, allergies and physical assessment reviewed/completed Test results: test results available and properly labeled Site: site marked by physician or proceduralist who is privileged and credentialed to perform procedure Relevant imaging studies available and labeled: Yes Patient identity confirmed: verified patient name and Time out: Immediately prior to procedure a time out was called to verify the correct patient, procedure, equipment, sales support consultant and site/side marked as required. Timeout performed at: 10/24/2022 9:39 AM Physician or proceduralist has discussed critical or nonroutine steps, procedure duration and anticipated blood loss: Yes All team members agree to proceed: Yes Preparation: Patient was prepped and draped in usual sterile fashion Local anesthesia used?: Yes Anesthesia: Local infiltration Local anesthetic: Lidocaine/prilocaine emulsionPatient sedated: no Patient tolerance: Patient tolerated the procedure well with no immediate complications Procedure details: The patient's Negrete catheter was removed. This was uncomfortable for him. It had some calcifications and sediment on the tip of the catheter and beginning to plug the movement. He was then prepped in usual sterile fashion. Lidocaine jelly was administered per urethra. Flexible scope was then passed to the urethra under direct vision. The penile urethra was unremarkable. The external sphincter was intact. His prostate was actually relatively patent and the scope was able to pass into the bladder. There was a fair amount of mucus and some sediment within the bladder but no obvious tumors or stones. The scope was removed after filling his bladder with a bit of saline. He tolerated the procedure reasonably well although it was uncomfortable for him. documented in this encounter [facility] 10-11-2022 History of Present illness Narrative Patient brought urine specimen in to office to provide to nursing staff. States they believe patient has another UTI. Urine cloudy/milky in appearance. Foul odor noted. Unable to obtain POC d/t urine viscosity. Specimen sent for urine culture. documented in this encounter [facility] 10-11-2022 History of Present illness Narrative Patient with c/o UTI. UTI symptoms started: had them forever, has spasms and is not starting to get plugged up. Any particular triggers leading to UTI: no, however, since radiation started, he does not drink as much water What symptoms are you having?: Urine looks like milk and has an odor Have you recently been on an antibiotic?: no If so, When did you complete the antibiotic?: N/A Are infections usually brought on after sexual intercourse?: no Have you ever passed air in your urine?: no Have you passed blood in your urine?: no Do you have problems with constipation?: yes Do you still have periods?: N/A If yes, date of last period. N/A If no, when did periods stop. N/A Do you use hormone replacement therapy?: N/A Any of the following symptoms: Urinary frequency has a catheter Urinary urgency has a cathter Abdominal pain no Straining to urinate has a catheter Poor urine stream/flow has a catheter Incomplete bladder emptying has a catheter Burning with urination yes Urine leaking no Fever no Do you use feminine hygiene products? N/A Do you smoke? yes Do you have any medical issues that could r/t infections? no Anything else to add? Has spasm and feels like has to go all the time and has burning and lower back pain documented in this encounter [facility] 10-09-2022 History of Present illness Narrative Oncology Nurse Navigation Note: Type of contact: phone call Location of patient: Phone Call Reason for contact: Completion of radation Diagnoses: prostate cancer (cT3/4 cN1, PSA 27.10, Grade Group 5) Point in treatment: Surveillance Notes: Spoke with Martin's Claudia s/p completion of radiation therapy. Treatment started 08/28/2022 through 10/05/2022. Treatment consisted of 28 fractions over 38 elapsed days. Claudia states Martin did well with treatment but is having excruciating bladder spasms from his negrete catheter. He was started on Gemtesa which has not helped. He is now taking oxycodone 5 mg every 6 hours and is still having pain. He has a follow up appointment with Dr. Whitt on 10/24 however I encouraged Claudia to reach out to the office if she felt he needed to be seen sooner. She denies any questions or navigation needs at this time. Next follow up planned: 1-2 weeks unless patient has concerns she has my contact information. Patient has appt: Dr. Whitt - 10/24 Dr. Callahan - 01/07 Lee [place] rn access Nurse Navigator [facility] [phone] documented in this encounter [facility] 10-04-2022 History of Present illness Narrative Images from the original note were not included. [facility] [address] [facility] [id number] MD Ariadna Walker MD Praveen Dubey, MD Andrew Freeman, MD David Howell, MD Vijay Kudithipudi, MD Michael Siedow, MD Rebekah Young, MD ON TREATMENT VISIT NOTE Patient Name: Ginger Weldon Date of : 1960 Date of Service: 10/04/2022 DIAGNOSIS: Adenocarcinoma of prostate (HCC) [C61] STAGE: Cancer Staging Adenocarcinoma of prostate (HCC) Staging form: Prostate, AJCC 8th Edition - Clinical stage from 04/20/2022: Stage IIIC (cT1c, cN0, cM0, PSA: 27, Grade Group: 5) - Signed by Maureen Parsons MD on 06/26/2022 TREATMENT TO DATE: PROS_HYPO21 10/04/2022 Value Treatment Date Reference Point PROST_PELV_LN; cp PROST_PELV_LN 10/04/2022 Total Dose to Date (cGy) 6,750; 7,056 10/04/2022 Prescription Dose (cGy) 7,000 10/04/2022 Fractions Treated to Date 27 10/04/2022 Total Fractions Prescribed 28 10/04/2022 Prescribed Dose per Fraction (cGy) 250 10/04/2022 Elapsed Days 37 10/04/2022 Unverified data imported from [employer]. May not reflect actual given/total prescription dose. TREATMENT INTENT: Definitive external beam radiation therapy SUBJECTIVE Patient presents in clinic with his this morning and is overall doing fair. He continues to have moderate to severe bladder spasms which are not well controlled with the medication provided to him by urology. He continues to have pelvic pain that is not controlled with ibuprofen and Tylenol. His chronic indwelling Negrete catheter has been providing him issues and the lidocaine jelly used at the tip of the penis does provide some relief. He denies is any change to his bowel habits including tenesmus or bright red blood per rectum. He notes good with the 2 fatigue sometimes relieved by rest. OBJECTIVE PACU Vitals 10/04/22 1118 BP: 137/77 Pulse: 72 SpO2: 95% PainLoc: Objective General: NAD, patient well appearing but tired. Extremities: No acute findings. No edema LABS Lab Results Component Value Date WBC 8.47 09/13/2022 HGB 15.0 09/13/2022 HCT 44.3 09/13/2022 MCV 91.5 09/13/2022 PLT 183 09/13/2022 RBC 4.84 09/13/2022 Lab Results Component Value Date GLUCOSE 164 (H) 09/13/2022 CALCIUM 10.0 09/13/2022 NA 138 09/13/2022 K 3.5 09/13/2022 CL 110 (H) 09/13/2022 BUN 15 09/13/2022 CREATININE 0.97 09/13/2022 LABS Toxicity Assessment Gastrointestinal Diarrhea: Grade 0 Nausea: Grade 0 General Disorders and Administration Site Conditions Fatigue: Grade 2 Injury, Poisoning, and Procedural Dermatitis Radiation: Grade 0 Renal and Urinary Bladder Spasm: Grade 2 Urinary Frequency: Grade 1 Urinary Incontinence: Grade 0 Urinary Retention: Grade 0 Urinary Tract Pain: Grade 2 Urinary Urgency: Grade 0 IMAGING AND SETUP Daily imaging reviewed, patient has been lining up well to date. Assessment: The patient is tolerating treatment as expected based on radiation dose to date. Plan: We will continue radiation therapy as planned, to a dose of 70 Gy. We will follow up next week or sooner if needed. - 10 day course of 5mg Q6H Oxycodone provided to the patient - Patient to follow-up with Urology on 10/24/2022 to have Negrete catheter pulled. - Our nursing team will call the patient in 10 days and I will see him back in clinic in 3 months. Please let me know if you have any questions. Jenn Callahan M.D. Radiation Oncology 3:23 PM, 10/04/22 documented in this encounter [facility] 10-01-2022 History of Present illness Narrative Patient with c/o UTI. UTI symptoms started: Any particular triggers leading to UTI: no What symptoms are you having?: spasms Have you recently been on an antibiotic?: a couple weeks ago from the hospital If so, When did you complete the antibiotic?: couple weeks ago Are infections usually brought on after sexual intercourse?: no Have you ever passed air in your urine?: no Have you passed blood in your urine?: no Do you have problems with constipation?: no Do you still have periods?: n/a If yes, date of last period. N/a If no, when did periods stop. N/a Do you use hormone replacement therapy?: n/a Any of the following symptoms: Urinary frequency not sure he has a cath Urinary urgency has a cath Abdominal pain no but does have back pain Straining to urinate no Poor urine stream/flow n/a Incomplete bladder emptying n/a Burning with urination only when spasms happen the tip of th penis. Urine leaking no Fever no Do you use feminine hygiene products? no Do you smoke? yes Do you have any medical issues that could r/t infections? no Anything else to add?Urine sample came from the cath. dropped off urine while was at treatment. documented in this encounter [facility] 09-27-2022 History of Present illness Narrative Images from the original note were not included. [facility] [address] [facility] [id number] MD Ariadna Walker MD Praveen Dubey, MD Andrew Freeman, MD David Howell, MD Vijay Kudithipudi, MD Michael Siedow, MD Rebekah Young, MD ON TREATMENT VISIT NOTE Patient Name: Ginger Weldon Date of : 1960 Date of Service: 09/27/2022 DIAGNOSIS: Adenocarcinoma of prostate (HCC) [C61] STAGE: Cancer Staging Adenocarcinoma of prostate (HCC) Staging form: Prostate, AJCC 8th Edition - Clinical stage from 04/20/2022: Stage IIIC (cT1c, cN0, cM0, PSA: 27, Grade Group: 5) - Signed by Maureen Parsons MD on 06/26/2022 TREATMENT TO DATE: PROS_HYPO21 09/27/2022 Value Treatment Date Reference Point PROST_PELV_LN; cp PROST_PELV_LN 09/27/2022 Total Dose to Date (cGy) 5,500; 5,749 09/27/2022 Prescription Dose (cGy) 7,000 09/27/2022 Fractions Treated to Date 22 09/27/2022 Total Fractions Prescribed 28 09/27/2022 Prescribed Dose per Fraction (cGy) 250 09/27/2022 Elapsed Days 30 09/27/2022 Unverified data imported from [employer]. May not reflect actual given/total prescription dose. TREATMENT INTENT: Definitive external beam radiation therapy SUBJECTIVE Patient presents in clinic alone this morning and is overall doing well. Dr. Spears swapped out the patient's catheter last week and although extremely painful, it is draining much better after a decent debulking of the sediment attached. He denies any changes to bowel habits. He denies any worsening fatigue. He has no questions or concerns at this time. OBJECTIVE PACU Vitals 09/27/22 1050 BP: (!) 155/91 Pulse: 84 SpO2: 95% Objective General: NAD, patient well appearing but tired. Extremities: No acute findings. No edema LABS Lab Results Component Value Date WBC 8.47 09/13/2022 HGB 15.0 09/13/2022 HCT 44.3 09/13/2022 MCV 91.5 09/13/2022 PLT 183 09/13/2022 RBC 4.84 09/13/2022 Lab Results Component Value Date GLUCOSE 164 (H) 09/13/2022 CALCIUM 10.0 09/13/2022 NA 138 09/13/2022 K 3.5 09/13/2022 CL 110 (H) 09/13/2022 BUN 15 09/13/2022 CREATININE 0.97 09/13/2022 LABS Toxicity Assessment Gastrointestinal Diarrhea: Grade 1 General Disorders and Administration Site Conditions Fatigue: Grade 2 Injury, Poisoning, and Procedural Dermatitis Radiation: Grade 0 Renal and Urinary Bladder Spasm: Grade 1 Urinary Frequency: Grade 0 Urinary Retention: Grade 0 Urinary Tract Pain: Grade 0 IMAGING AND SETUP Daily imaging reviewed, patient has been lining up well to date. Assessment: The patient is tolerating treatment as expected based on radiation dose to date. Plan: We will continue radiation therapy as planned, to a dose of 70 Gy. We will follow up next week or sooner if needed. Please let me know if you have any questions. Jenn Callahan M.D. Radiation Oncology 3:23 PM, 09/27/22 documented in this encounter [facility] 09-21-2022 History of Present illness Narrative Patient in office for negrete catheter change. States he has had significant pain and continues with radiation treatments. Negrete catheter balloon deflated. Unable to remove negrete catheter. Sudha Pretty DNP in room to evaluate. Unable to remove negrete catheter. Dr. Spears in room to evaluate. He was able to successfully remove the catheter with a lot of effort. Catheter tip intact with calcification. Reinserted 16 fr negrete catheter. Draining red tinged urine. Tip of penis noted to have blood. Patient expresses discomfort. Per Dr. Spears, patient to be sent home with 28 days sample supply of Gemtesa. Education provided to family on s/s of catheter not draining and when to call the office. Also, discussed alternate ways of communication. Patient and questions when to follow up. Explained will reach out to Dr. Whitt to discuss follow up care. States he has 10 more treatments left with radiation. documented in this encounter [facility] 09-20-2022 History of Present illness Narrative Images from the original note were not included. [facility] [address] [facility] [id number] MD Ariadna Walker MD Praveen Dubey, MD Andrew Freeman, MD David Howell, MD Vijay Kudithipudi, MD Michael Siedow, MD Rebekah Young, MD ON TREATMENT VISIT NOTE Patient Name: Ginger Weldon Date of : 1960 Date of Service: 09/20/2022 DIAGNOSIS: Adenocarcinoma of prostate (HCC) [C61] STAGE: Cancer Staging Adenocarcinoma of prostate (HCC) Staging form: Prostate, AJCC 8th Edition - Clinical stage from 04/20/2022: Stage IIIC (cT1c, cN0, cM0, PSA: 27, Grade Group: 5) - Signed by Maureen Parsons MD on 06/26/2022 TREATMENT TO DATE: PROS_HYPO21 09/20/2022 Value Treatment Date Reference Point PROST_PELV_LN; cp PROST_PELV_LN 09/20/2022 Total Dose to Date (cGy) 4,250; 4,443 09/20/2022 Prescription Dose (cGy) 7,000 09/20/2022 Fractions Treated to Date 17 09/20/2022 Total Fractions Prescribed 28 09/20/2022 Prescribed Dose per Fraction (cGy) 250 09/20/2022 Elapsed Days 23 09/20/2022 Unverified data imported from [employer]. May not reflect actual given/total prescription dose. TREATMENT INTENT: Definitive external beam radiation therapy SUBJECTIVE Patient presents in clinic with his and is overall doing fair. He continues to have issues with his chronic indwelling Negrete catheter and will see Dr. Whitt tomorrow to swap out his current one. He is having persistent sediment buildup. The patient denies any worsening fatigue or changes to bowel habits at this time. Patient has no questions or concerns. OBJECTIVE PACU Vitals 09/20/22 1122 BP: Pulse: PainLoc: Groin Objective General: NAD, patient well appearing but tired. Extremities: No acute findings. No edema LABS Lab Results Component Value Date WBC 8.47 09/13/2022 HGB 15.0 09/13/2022 HCT 44.3 09/13/2022 MCV 91.5 09/13/2022 PLT 183 09/13/2022 RBC 4.84 09/13/2022 Lab Results Component Value Date GLUCOSE 164 (H) 09/13/2022 CALCIUM 10.0 09/13/2022 NA 138 09/13/2022 K 3.5 09/13/2022 CL 110 (H) 09/13/2022 BUN 15 09/13/2022 CREATININE 0.97 09/13/2022 LABS Toxicity Assessment Gastrointestinal Diarrhea: Grade 0 General Disorders and Administration Site Conditions Fatigue: Grade 1 Injury, Poisoning, and Procedural Dermatitis Radiation: Grade 0 Renal and Urinary Bladder Spasm: Grade 2 Urinary Frequency: Grade 0 Urinary Tract Pain: Grade 1 IMAGING AND SETUP Daily imaging reviewed, patient has been lining up well to date. Assessment: The patient is tolerating treatment as expected based on radiation dose to date. Plan: We will continue radiation therapy as planned, to a dose of 70 Gy. We will follow up next week or sooner if needed. Dr. Whitt to swap out catheter tomorrow. Please let me know if you have any questions. Jenn Callahan M.D. Radiation Oncology 3:23 PM, 09/20/22 documented in this encounter [facility] 09-13-2022 History of Present illness Narrative Images from the original note were not included. [facility] [address] [facility] [phone] MD Ariadna Walker MD Praveen Dubey, MD Andrew Freeman, MD David Howell, MD Vijay Kudithipudi, MD Michael Siedow, MD Rebekah Young, MD ON TREATMENT VISIT NOTE Patient Name: Ginger Weldon Date of : 1960 Date of Service: 09/13/2022 DIAGNOSIS: Adenocarcinoma of prostate (HCC) [C61] STAGE: Cancer Staging Adenocarcinoma of prostate (HCC) Staging form: Prostate, AJCC 8th Edition - Clinical stage from 04/20/2022: Stage IIIC (cT1c, cN0, cM0, PSA: 27, Grade Group: 5) - Signed by Maureen Parsons MD on 06/26/2022 TREATMENT TO DATE: PROS_HYPO21 09/13/2022 Value Treatment Date Reference Point PROST_PELV_LN; cp PROST_PELV_LN 09/13/2022 Total Dose to Date (cGy) 3,000; 3,136 09/13/2022 Prescription Dose (cGy) 7,000 09/13/2022 Fractions Treated to Date 12 09/13/2022 Total Fractions Prescribed 28 09/13/2022 Prescribed Dose per Fraction (cGy) 250 09/13/2022 Elapsed Days 16 09/13/2022 Unverified data imported from [employer]. May not reflect actual given/total prescription dose. TREATMENT INTENT: Definitive external beam radiation therapy SUBJECTIVE Patient presents in clinic with his and is overall doing fair. Unfortunately, the patient was suffering from severe bladder spasms yesterday evening and he was evaluated in the [facility] emergency department. The ED team performed bladder irrigation and was able to dislodge a clot which thankfully resolved the spasms. He is in talks with urology to possibly switch out his chronic indwelling Negrete catheter. The patient denies any worsening fatigue or loose stools. He has no questions or concerns at this time. OBJECTIVE PACU Vitals 09/13/22 1127 BP: 134/79 Pulse: 80 Objective General: NAD, patient well appearing but tired. Extremities: No acute findings. No edema LABS Lab Results Component Value Date WBC 8.47 09/13/2022 HGB 15.0 09/13/2022 HCT 44.3 09/13/2022 MCV 91.5 09/13/2022 PLT 183 09/13/2022 RBC 4.84 09/13/2022 Lab Results Component Value Date GLUCOSE 164 (H) 09/13/2022 CALCIUM 10.0 09/13/2022 NA 138 09/13/2022 K 3.5 09/13/2022 CL 110 (H) 09/13/2022 BUN 15 09/13/2022 CREATININE 0.97 09/13/2022 LABS Toxicity Assessment Gastrointestinal Diarrhea: Grade 1 General Disorders and Administration Site Conditions Fatigue: Grade 1 Injury, Poisoning, and Procedural Dermatitis Radiation: Grade 0 Renal and Urinary Bladder Spasm: Grade 2 Urinary Frequency: Grade 0 Urinary Incontinence: Grade 0 Urinary Retention: Grade 2 Urinary Tract Pain: Grade 2 Urinary Urgency: Grade 0 IMAGING AND SETUP Daily imaging reviewed, patient has been lining up well to date. Assessment: The patient is tolerating treatment as expected based on radiation dose to date. Plan: We will continue radiation therapy as planned, to a dose of 70 Gy. We will follow up next week or sooner if needed. Please let me know if you have any questions. Jenn Callahan M.D. Radiation Oncology 3:23 PM, 09/13/22 documented in this encounter [facility] 09-07-2022 History of Present illness Narrative Oncology Nurse Navigation Note: Type of contact: phone call Location of patient: Phone Call Reason for contact: Radiation follow up Diagnoses: prostate cancer (cT3/4 cN1, PSA 27.10, Grade Group 5) Point in treatment: Completed 02/11 fractions of radiation Notes: Spoke with patients Claudia to see how Martin has been tolerating radiation. She states he is sleeping better since starting Trazodone but is still having a hard time dealing with his negrete catheter that will need to remain in place during radiation. She was finally able to obtain lidocaine jelly to help with discomfort from the catheter. Otherwise, he is tolerating treatment well. Claudia states they are taking it day by day and deny any navigation needs at this time Next follow up planned: 1-2 weeks and as needed unless patient has concerns she has my contact information. Lee Ann Stiteler BSN rn access Nurse Navigator [facility] [phone] documented in this encounter [facility] 09-06-2022 History of Present illness Narrative Images from the original note were not included. [facility] [address] [facility] [address] MD Ariadna Walker MD Praveen Dubey, MD Andrew Freeman, MD David Howell, MD Vijay Kudithipudi, MD Michael Siedow, MD Rebekah Young, MD ON TREATMENT VISIT NOTE Patient Name: Ginger Weldon Date of : 1960 Date of Service: 09/06/2022 DIAGNOSIS: Adenocarcinoma of prostate (HCC) [C61] STAGE: Cancer Staging Adenocarcinoma of prostate (HCC) Staging form: Prostate, AJCC 8th Edition - Clinical stage from 04/20/2022: Stage IIIC (cT1c, cN0, cM0, PSA: 27, Grade Group: 5) - Signed by Maureen Parsons MD on 06/26/2022 TREATMENT TO DATE: PROS_HYPO21 09/06/2022 Value Treatment Date Reference Point PROST_PELV_LN; cp PROST_PELV_LN 09/06/2022 Total Dose to Date (cGy) 2,000; 2,091 09/06/2022 Prescription Dose (cGy) 7,000 09/06/2022 Fractions Treated to Date 8 09/06/2022 Total Fractions Prescribed 28 09/06/2022 Prescribed Dose per Fraction (cGy) 250 09/06/2022 Elapsed Days 9 09/06/2022 Unverified data imported from [employer]. May not reflect actual given/total prescription dose. TREATMENT INTENT: Definitive external beam radiation therapy SUBJECTIVE Patient presents in clinic with his and is overall doing fair. Machine is running behind today and the patient's bladder is pretty full and uncomfortable. He denies any fatigue, loose stools, or changes to his urinary symptoms from baseline. He has an occasional bladder spasm which does not bother him a great deal. Patient has no questions or concerns. OBJECTIVE PACU Vitals 09/06/22 1104 BP: (!) 153/89 Pulse: (!) 102 PainLoc: Objective General: NAD, patient well appearing. Extremities: No acute findings. No edema Skin: Color, texture and turgor wnl. No rashes and lesions. Neuro: AAO x 3, appropriately interactive, normal affect, speech fluent. Cranial nerves II through XII are intact grossly and symmetrically. No focal neurologic deficit. LABS Lab Results Component Value Date WBC 13.54 (H) 04/23/2022 HGB 13.2 (L) 04/23/2022 HCT 41.4 04/23/2022 MCV 96.3 04/23/2022 PLT 255 04/23/2022 RBC 4.30 (L) 04/23/2022 Lab Results Component Value Date GLUCOSE 148 (H) 08/07/2022 CALCIUM 9.3 08/07/2022 NA 138 08/07/2022 K 3.5 08/07/2022 CL 109 (H) 08/07/2022 BUN 14 08/07/2022 CREATININE 1.15 08/07/2022 LABS Toxicity Assessment Gastrointestinal Diarrhea: Grade 0 General Disorders and Administration Site Conditions Fatigue: Grade 0 Renal and Urinary Bladder Spasm: Grade 1 Urinary Frequency: Grade 0 Urinary Incontinence: Grade 0 Urinary Retention: Grade 0 Urinary Tract Pain: Grade 0 Urinary Urgency: Grade 0 IMAGING AND SETUP Daily imaging reviewed, patient has been lining up well to date. Assessment: The patient is tolerating treatment as expected based on radiation dose to date. Plan: We will continue radiation therapy as planned, to a dose of 70 Gy. We will follow up next week or sooner if needed. Please let me know if you have any questions. Jenn Callahan M.D. Radiation Oncology 3:23 PM, 09/06/22 documented in this encounter [facility] 08-30-2022 History of Present illness Narrative Images from the original note were not included. [facility] [address] [facility] [id number] Maureen Fede, MD Ariadna Mildred, MD Harsh MD Terrence De Anda MD David Howell, MD Vijay Kudithipudi, MD Michael Siedow, MD Rebekah Young, MD ON TREATMENT VISIT NOTE Patient Name: Ginger Weldon Date of : 1960 Date of Service: 08/30/2022 DIAGNOSIS: Adenocarcinoma of prostate (HCC) [C61] STAGE: Cancer Staging Adenocarcinoma of prostate (HCC) Staging form: Prostate, AJCC 8th Edition - Clinical stage from 04/20/2022: Stage IIIC (cT1c, cN0, cM0, PSA: 27, Grade Group: 5) - Signed by Maureen Parsons MD on 06/26/2022 TREATMENT TO DATE: PROS_HYPO21 08/30/2022 Value Treatment Date Reference Point PROST_PELV_LN; cp PROST_PELV_LN 08/30/2022 Total Dose to Date (cGy) 750; 784 08/30/2022 Prescription Dose (cGy) 7,000 08/30/2022 Fractions Treated to Date 3 08/30/2022 Total Fractions Prescribed 28 08/30/2022 Prescribed Dose per Fraction (cGy) 250 08/30/2022 Elapsed Days 2 08/30/2022 Unverified data imported from [employer]. May not reflect actual given/total prescription dose. TREATMENT INTENT: Definitive external beam radiation therapy SUBJECTIVE Patient presents alone in clinic and is overall doing well. He denies any fatigue, skin irritation, or changes to his urinary or bowel habits at this time. The patient has a chronic indwelling Negrete catheter denies any issues with that since starting radiation therapy. Patient has no questions or concerns at this time. OBJECTIVE PACU Vitals 08/30/22 1130 BP: (!) 146/84 Pulse: 81 SpO2: 95% Objective General: NAD, patient well appearing. Extremities: No acute findings. No edema Skin: Color, texture and turgor wnl. No rashes and lesions. Neuro: AAO x 3, appropriately interactive, normal affect, speech fluent. Cranial nerves II through XII are intact grossly and symmetrically. No focal neurologic deficit. LABS Lab Results Component Value Date WBC 13.54 (H) 04/23/2022 HGB 13.2 (L) 04/23/2022 HCT 41.4 04/23/2022 MCV 96.3 04/23/2022 PLT 255 04/23/2022 RBC 4.30 (L) 04/23/2022 Lab Results Component Value Date GLUCOSE 148 (H) 08/07/2022 CALCIUM 9.3 08/07/2022 NA 138 08/07/2022 K 3.5 08/07/2022 CL 109 (H) 08/07/2022 BUN 14 08/07/2022 CREATININE 1.15 08/07/2022 LABS Toxicity Assessment Gastrointestinal Nausea: Grade 1 General Disorders and Administration Site Conditions Fatigue: Grade 0 Injury, Poisoning, and Procedural Dermatitis Radiation: Grade 0 Renal and Urinary Bladder Spasm: Grade 1 Urinary Frequency: Grade 0 Urinary Incontinence: Grade 0 Urinary Retention: Grade 0 Urinary Tract Pain: Grade 0 Urinary Urgency: Grade 0 IMAGING AND SETUP Daily imaging reviewed, patient has been lining up well to date. Assessment: The patient is tolerating treatment as expected based on radiation dose to date. Plan: We will continue radiation therapy as planned, to a dose of 70 Gy. We will follow up next week or sooner if needed. Please let me know if you have any questions. Jenn Callahan M.D. Radiation Oncology 3:23 PM, 08/30/22 documented in this encounter [facility] 08-24-2022 History of Present illness Narrative Oncology Nurse Navigation Note: Type of contact: phone call Location of patient: Phone Call Reason for contact: Rad onc follow up Diagnoses: prostate cancer (cT3/4 cN1, PSA 27.10, Grade Group 5) Point in treatment: initiating radiation therapy Notes: Spoke to patients el Taylor in follow up of appointment with Dr. Callahan. She was able to verbalize the treatment plan presented to them from Dr. Callahan and have decided to proceed with radiation therapy. Claudia states Don has been depressed and not sleeping well dealing with his diagnosis and his negrete catheter. He was started on Trazodone which has been helping but may need a dose increase. Emotional support provided. She denies any navigation needs at this time. Next follow up planned: 1-2 weeks and as needed unless patient has concerns he has my contact information. Patient has appt: 08/28 - first radiation treatment Lee Ann ROBLES rn access Nurse Navigator [facility] [phone] documented in this encounter [facility] 08-23-2022 History of Present illness Narrative Radiation Oncology Note: Patient Name: Ginger Weldon Date of : 1960 ID: [id number] yo M with very high risk prostate cancer (cT3/4 cN1, PSA 27.10, Grade Group 5) s/p PMSA with multiple hypermetabolic regional pelvic lymph nodes. HPI: I reviewed the patient's external beam radiation plan with my colleagues this afternoon during our peer review. Given the patient's T4 disease likely involving the anal canal our high-dose PTV extends into the anterior aspects of the inferior rectum along with the anal canal. We were unable to meet all of the patient's rectal constraints and I called him and his this afternoon to discuss with him that he would likely be at a higher risk of rectal toxicity including but not limited to loose stools, tenesmus, and rectal fistula among others. Both the patient and his were in agreement to proceed with radiation therapy and were clearly aware of the increased risk of rectal and anal canal toxicity. A/P: We will proceed with radiation therapy as planned. The patient is set to start radiation therapy on 08/28/2022. Please let me know if you have any questions. Jenn Callahan M.D. Radiation Oncology 4:27 PM, 08/23/22 documented in this encounter [facility] 08-20-2022 History of Present illness Narrative Patient struggling with diagnosis of prostate cancer and is having difficulty sleeping, according to his possibly due to anxiety about his diagnosis. She is requesting on his behalf medication to help with sleep and/or depression. Have sent in trazodone to use 25 to 50 mg within an hour of bedtime to help with sleep. This may help with depression as well though may need higher doses. Will consider other less sedating antidepressant if needed. documented in this encounter [facility] 07-31-2022 History of Present illness Narrative Lupron 45 mg administered in left ventrogluteal per Dr. Whitt. [facility] [place] # [id number]. Lot # [id number]. Expiration date 05/20/2024. SN [id number]. Tolerated well. Follow up appointment scheduled. Instructed to call the office with any questions or concerns. C/o s/s UTI. States he has noticed some drainage at tip of penis with pain. POC abnormals documented. Urine sent for culture. Instructed to call the office with any questions or concerns. documented in this encounter [facility] 07-23-2022 History of Present illness Narrative Radiation Oncology Note: Patient Name: Ginger Weldon Date of : 1960 ID: [id number] yo M with very high risk prostate cancer (cT3/4 cN1, PSA 27.10, Grade Group 5) s/p PMSA with multiple hypermetabolic regional pelvic lymph nodes. Patient presents to discuss treatment options. HPI: Patient presents in clinic with his this morning. He has had a chronic indwelling catheter since April due to significant urinary retention. A/P: - Planning for external beam radiation therapy with long course ADT. I will tentatively plan for at least 28 fractions and up to 7000 cGy delivered to the prostate/SV/pelvic lymph nodes. - We will coordinate care with Dr. Whitt's team regarding ADT and potential placement of fiducial/SpaceOAR. - Potential radiation related toxicities were discussed in detail (outlined below), patient and his like to move forward with therapy and signed treatment consent. We will arrange CT simulation after the above is finalized. Patient in agreement with plan. The logistics of radiation therapy, side effects and complications were discussed in detail with the patient and his at the time of this consultation. We explained the logistics of external beam radiation therapy including simulation for radiation therapy planning, with prostate fiducial and Space OAR placement prior to simulation. The side effects of radiation therapy were also explained to the patient, including but not limited to, acute side effects in the form of fatigue, increased urinary symptoms, loose stools or diarrhea, and late side effects in the form of change in urination/bowel habits, erectile dysfunction, radiation proctitis, radiation cystitis, and rarely, secondary malignancy. The patient indicated that he understood the recommendations and would like to proceed with treatment. All of the patient's questions were answered to his satisfaction. Please let me know if you have any questions. Jenn Callahan M.D. Radiation Oncology 10:43 PM, 07/23/22 documented in this encounter [facility] 06-28-2022 History of Present illness Narrative Patient had cath removed yesterday, stated he wanted to try to go without the catheter. Patient comes in today, states he was doing ok until last night and since then he is constantly in the bathroom, straining to urinate. PVR done, 249 in bladder. Patient opts to have catheter inserted. 16 F inserted to Y, connected to drainage bag and secured to leg. Patient to have imaging and follow up with Dr. Parsons's office, from there they can decide how long catheter needs to stay in. documented in this encounter [facility] 06-27-2022 History of Present illness Narrative Patient here for tov, 120 ml sterile water introduced into bladder through catheter. Cath balloon deflated and pulled, cath balloon intact. Patient able to void 100 ml. Bladder scan then preformed and 80 ml in bladder. Patient opts to try and void on his own and will call this office today at 2 to report how he is doing. Understands the risk of urinary retention. documented in this encounter [facility] 06-13-2022 History of Present illness Narrative Filled Drug QTY Prescriber 04/20/2022 Tramadol Hcl 50 Mg Tablet 12.00 3 Er War Patient/ calls to clarify the need for pain med. Since his procedure he has had pain which is primarily in the rectal area due to possibly to swelling of the prostate. Have given a prescription for prednisone 40 mg daily for 5 days possibly to improve swelling. Because of his renal function NSAIDs cannot be used. He has had a previous prescription for tramadol which may not have been effective. I have given more tramadol hoping that with the prednisone he might have relief. documented in this encounter [facility] 06-07-2022 Instructions Kelvin Kohler MD - 06/07/2022 12:13 PM EST BLOOD TESTS CAN BE OBTAINED AT [facility] ([address] across from the [employer]); AT THE MEDICAL OFFICE BUILDING NEXT TO THE HOSPITAL ,OR AT THE DOCTOR'S OFFICE IN [place]([address] [place] [address]);ORDERS ARE ON THE COMPUTER; NEITHER PAPER REQUISITION NOR APPOINTMENT ARE REQUIRED documented in this encounter [facility] 06-07-2022 History of Present illness Narrative Patient: Ginger Weldno : 1960 Date: 06/07/22 This 61 y.o. male presents for Adenocarcima of prostate, Hypertension, and Renal insufficiency (OV TO RE-ESTABLISH) History of Present Illness: HPI Hypertension; Has had rectal pain and had been using ibuprofen at night , but has renal insufficiency / due to obstructive uropathy from prostate ca. Past Medical/Surgical History: Past Medical History: Diagnosis Date BESSIE (acute kidney injury) (HCC) BPH (benign prostatic hyperplasia) Cancer (HCC) Elevated blood pressure reading with diagnosis of hypertension Nicotine dependence Past Surgical History: Procedure Laterality Date CYSTO URETHERAL DILATION N/A 04/20/2022 Procedure: CYSTOSCOPY, URETHERAL DILATION, PROSTATE ULTRASOUND AND PROSTATE BIOPSY; Surgeon: Florian Whitt MD; Location: [facility] Main OR; Service: Urology NEEDLE BIOPSY PROSTATE N/A 04/20/2022 Procedure: NEEDLE BIOPSY PROSTATE; Surgeon: Florian Whitt MD; Location: [facility] Main OR; Service: Urology Family History: Family History Problem Relation Age of Onset Diabetes Mother No Known Problems Father Melanoma Brother Coronary artery disease Maternal Uncle Social History: Social History Socioeconomic History Marital status: Tobacco Use Smoking status: Every Day Packs/day: 2.00 Types: Cigarettes Start date: 03/05/1990 Smokeless tobacco: Never Vaping Use Vaping Use: Never used Substance and Sexual Activity Alcohol use: Not Currently Drug use: Never Social Determinants of Health Financial Resource Strain: Low Risk Difficulty of Paying Living Expenses: Not hard at all Food Insecurity: No Food Insecurity Worried About Running Out of Food in the Last Year: Never true Ran Out of Food in the Last Year: Never true Transportation Needs: No Transportation Needs Lack of Transportation (Medical): No Lack of Transportation (Non-Medical): No Housing Stability: Unknown Unable to Pay for Housing in the Last Year: No Unstable Housing in the Last Year: No Allergies: No Known Allergies Medications: Current Outpatient Medications Medication Sig Dispense Refill acetaminophen (TYLENOL) 325 MG tablet Take 2 (two) tablets (650 mg total) by mouth every 6 (six) hours as needed for pain . bethanechol (Urecholine) 25 MG tablet Take 1 (one) tablet (25 mg total) by mouth 3 (three) times a day . 90 tablet 11 tamsulosin (FLOMAX) 0.4 mg capsule Take 1 (one) capsule (0.4 mg total) by mouth daily . amLODIPine (NORVASC) 2.5 MG tablet Take 1 (one) tablet (2.5 mg total) by mouth daily . 90 tablet 3 No current facility-administered medications for this visit. Review of Systems: Review of Systems Respiratory: Negative for apnea. Cardiovascular: Negative for leg swelling. Gastrointestinal: Positive for rectal pain. Physical Exam: Vital Signs: BP 137/82 (BP Location: Left arm, Patient Position: Sitting, BP Cuff Size: Adult) Pulse 90 Temp 99.1 F (37.3 C) (Infrared) Ht 5' 10 Wt 92.3 kg (203 lb 6.4 oz) SpO2 95% BMI 29.18 kg/m Physical Exam Constitutional: Appearance: Normal appearance. Cardiovascular: Rate and Rhythm: Normal rate and regular rhythm. Heart sounds: Normal heart sounds. Neurological: Mental Status: He is alert. Assessment/Plan: Ginger was seen today for adenocarcima of prostate, hypertension and renal insufficiency. Diagnoses and all orders for this visit: Primary hypertension - amLODIPine (NORVASC) 2.5 MG tablet; Take 1 (one) tablet (2.5 mg total) by mouth daily . - Comprehensive Metabolic Panel; Future - Lipid Panel; Future Renal insufficiency - Comprehensive Metabolic Panel; Future Return in about 3 months (around 09/05/2022). Patient Instructions BLOOD TESTS CAN BE OBTAINED AT [facility] ([address] across from the nursing school); AT THE MEDICAL OFFICE BUILDING NEXT TO THE HOSPITAL ,OR AT THE DOCTOR'S OFFICE IN [place]([address] [place] [address]);ORDERS ARE ON THE COMPUTER; NEITHER PAPER REQUISITION NOR APPOINTMENT ARE REQUIRED For any new medications prescribed today, patient was educated about indications for the medication, how to take the medication and potential side effects of the medications. Goals None documented in this encounter [facility] 06-06-2022 History of Present illness Narrative Patient in for negrete catheter change. 16 fr coude removed. Catheter tip intact. Inserted 16 fr coude. Sterile technique maintained. Yellow/red urine returned in drainage bag. Tolerated well. Follow up appointment scheduled for 06/27/22 for TOV. Instructed to call the office with any questions or concerns. documented in this encounter [facility] 06-06-2022 Evaluation + Plan note Associated Problem(s): Renal insufficiency Etiology still unclear. This is despite having the Negrete catheter in place. He is being followed by nephrology for this. [facility] 06-06-2022 Miscellaneous Notes Associated Problem(s): Renal insufficiency Etiology still unclear. This is despite having the Negrete catheter in place. He is being followed by nephrology for this. Associated Problem(s): Urinary retention Even after dilating the urethral stricture he was unable to void. His prostate is actually not that large. His Negrete catheter was replaced today. He is on Flomax. I am going to start Urecholine as well. We will plan a voiding trial again in a few weeks. Associated Problem(s): Adenocarcinoma of prostate (HCC) PSA 27, Flagler's 4+5 5 prostate cancer. This is aggressive, high-grade disease. Bone scan and CT scan are both negative for metastatic disease. I discussed this in detail with him. He is interested in radiation therapy and this is likely his best option. I do not feel that he is a great candidate for prostatectomy given the high likelihood of extraprostatic disease locally. He agrees with this. We are going to refer him to radiation oncology for consultation. documented in this encounter [facility] 06-06-2022 History of Present illness Narrative Images from the original note were not included. DATE: 06/06/2022 CHIEF COMPLAINT: Chief Complaint Patient presents with Follow-up HISTORY OF PRESENT ILLNESS: Ginger Weldon is a 61 y.o. male with history of prostate cancer diagnosed recently with a PSA of 27 and a Isadora score of 5+4. He presents after metastatic work-up with bone scan and CT scan. He has a Negrete catheter in place for urinary retention. He did have dilation of a stricture but then failed a voiding trial after that. The catheter had to be replaced. He feels fine with the catheter in. He was very uncomfortable after the catheter was removed and when he was in retention. Initially seen by and referred by Kelvin Kohler MD . Duration: Chronic Aggravating Factors: Unknown Alleviating Factors: None Associated Symptoms: Urinary retention Systemic:The patient denies any weight loss, malaise, fatigue, pain, or night sweats. Urinary: Per HPI Bowel: No constipation, diarrhea, or fecal incontinence HISTORY: PMH Past Medical History: Diagnosis Date BESSIE (acute kidney injury) (HCC) BPH (benign prostatic hyperplasia) Cancer (HCC) Elevated blood pressure reading with diagnosis of hypertension Nicotine dependence PSH Past Surgical History: Procedure Laterality Date CYSTO URETHERAL DILATION N/A 04/20/2022 Procedure: CYSTOSCOPY, URETHERAL DILATION, PROSTATE ULTRASOUND AND PROSTATE BIOPSY; Surgeon: Florian Whitt MD; Location: [facility] Main OR; Service: Urology NEEDLE BIOPSY PROSTATE N/A 04/20/2022 Procedure: NEEDLE BIOPSY PROSTATE; Surgeon: Florian Whitt MD; Location: [facility] Main OR; Service: Urology [facility] Social History Socioeconomic History Marital status: Tobacco Use Smoking status: Every Day Packs/day: 2.00 Types: Cigarettes Start date: 03/05/1990 Smokeless tobacco: Never Vaping Use Vaping Use: Never used Substance and Sexual Activity Alcohol use: Not Currently Drug use: Never FH Family History Problem Relation Age of Onset Diabetes Mother No Known Problems Father Melanoma Brother Coronary artery disease Maternal Uncle ALLERGIES AND MEDICATIONS Allergies: Patient has no known allergies. Current Outpatient Medications: acetaminophen (TYLENOL) 325 MG tablet, Take 2 (two) tablets (650 mg total) by mouth every 6 (six) hours as needed for pain ., Disp: , Rfl: ibuprofen (ADVIL,MOTRIN) 200 MG tablet, Take 1 (one) tablet (200 mg total) by mouth every 6 (six) hours as needed for pain ., Disp: , Rfl: tamsulosin (FLOMAX) 0.4 mg capsule, Take 1 (one) capsule (0.4 mg total) by mouth daily ., Disp: , Rfl: amLODIPine (NORVASC) 5 MG tablet, Take 1 (one) tablet (5 mg total) by mouth daily Start: 04/24/22., Disp: 30 tablet, Rfl: 0 bethanechol (Urecholine) 25 MG tablet, Take 1 (one) tablet (25 mg total) by mouth 3 (three) times a day ., Disp: 90 tablet, Rfl: 11 REVIEW OF SYSTEMS: CONSTITUTIONAL: No weight loss, malaise, or fatigue EYES: No changes in vision, no blurry vision EARS, NOSE, MOUTH, THROAT: No change in hearing, No difficulty swallowing. CARDIOVASCULAR: No chest pain or heart palpitations. RESPIRATORY: No difficulty breathing or wheezing. GI: No changes in bowel habit. No blood in his stool. : No dysuria, hematuria, or urinary tract infections. The rest as above in the HPI. MUSCULOSKELETAL: No joint pain or swelling. VASCULAR: No peripheral edema. No calf pain with exertion. NEURO: No changes in gait or sensation. SKIN: No rashes or lesions. PSYCHIATRIC: No depressive or suicidal thoughts PHYSICAL EXAM: CONSTITUTIONAL: VITAL SIGNS: Vitals: 06/06/22 1007 BP: (!) 154/92 BP Location: Right arm Patient Position: Sitting BP Cuff Size: Adult Pulse: 82 SpO2: 97% GENERAL: Well appearing. No acute distress. EYES: PERRLA, EOMI EARS, NOSE, MOUTH, THROAT: mucous memebranes moist, trachea midline CARDIOVASCULAR: RRR, normal carotid pulse, no peripheral edema. ABDOMEN: Soft, nondistended, nontender. BACK: No CVA tenderness. : Deferred per patient MUSCULOSKELETAL: normal extremity ROM with no edema LYMPH: No cervical or supraclavicular lymphadenopathy NEURO: Normal gait, CN II-XII grossly intact PSYCHATRIC: A & O x3, mood and affect appropriate SKIN: No rashes, ulcers, or lesions visible Procedure: Negrete catheter removed. He was prepped in the usual sterile fashion and a new coud Negrete catheter was placed to bag drainage. This was 16 Stateless. 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 This is aggressive, high-grade disease. Bone scan and CT scan are both negative for metastatic disease. I discussed this in detail with him. He is interested in radiation therapy and this is likely his best option. I do not feel that he is a great candidate for prostatectomy given the high likelihood of extraprostatic disease locally. He agrees with this. We are going to refer him to radiation oncology for consultation. Relevant Orders Ambulatory referral to Radiation Oncology Renal insufficiency Etiology still unclear. This is despite having the Negrete catheter in place. He is being followed by nephrology for this. Urinary retention Even after dilating the urethral stricture he was unable to void. His prostate is actually not that large. His Negrete catheter was replaced today. He is on Flomax. I am going to start Urecholine as well. We will plan a voiding trial again in a few weeks. Relevant Medications bethanechol (Urecholine) 25 MG tablet Other Elevated PSA We discussed the differential diagnosis which includes: Patient wants to pursue evaluation with: We discussed treatment options including: Florian Whitt M.D [facility] documented in this encounter [facility] 06-06-2022 Evaluation + Plan note Associated Problem(s): Urinary retention Even after dilating the urethral stricture he was unable to void. His prostate is actually not that large. His Negrete catheter was replaced today. He is on Flomax. I am going to start Urecholine as well. We will plan a voiding trial again in a few weeks. [facility] 06-06-2022 Evaluation + Plan note Associated Problem(s): Adenocarcinoma of prostate (HCC) PSA 27, Flagler's 4+5 5 prostate cancer. This is aggressive, high-grade disease. Bone scan and CT scan are both negative for metastatic disease. I discussed this in detail with him. He is interested in radiation therapy and this is likely his best option. I do not feel that he is a great candidate for prostatectomy given the high likelihood of extraprostatic disease locally. He agrees with this. We are going to refer him to radiation oncology for consultation. [facility] 04-26-2022 History of Present illness Narrative Patient in today for pvr, 683 ml detected in bladder, patient states he is unable to void. New 16 F coude catheter inserted to Y and balloon inflated with 8 cc sterile water. Patient to schedule bone scan and ct susan. documented in this encounter [facility] 04-25-2022 History of Present illness Narrative Images from the original note were not included. DATE: 04/25/2022 CHIEF COMPLAINT: Chief Complaint Patient presents with post op tov biopsy results HISTORY OF PRESENT ILLNESS: Ginger Weldon is a 61 y.o. male with history of elevated PSA to 27. He also had incomplete bladder emptying/urinary retention. He had evidence of a probable membranous urethral stricture and he had a rockhard nodular prostate on exam. He is now status post urethral dilation and prostate biopsy. We did have to admit him after the procedure due to respiratory issues and he was determined to have fluid overload. His creatinine also bounced up before but after having the catheter in for several days it dropped all the way down to 1.9. He presents to review the results of the biopsy and also to have the Negrete catheter removed for a voiding trial. He now has a primary care physician that he is going to be establishing with. Initially seen by and referred by Kelvin Kohler MD . Duration: Chronic Aggravating Factors: Unknown Alleviating Factors: None Associated Symptoms: See above Systemic:The patient denies any weight loss, malaise, fatigue, pain, or night sweats. Urinary: Per HPI Bowel: No constipation, diarrhea, or fecal incontinence HISTORY: H Past Medical History: Diagnosis Date BESSIE (acute kidney injury) (HCC) BPH (benign prostatic hyperplasia) Elevated blood pressure reading with diagnosis of hypertension Nicotine dependence PSH Past Surgical History: Procedure Laterality Date CYSTO URETHERAL DILATION N/A 04/20/2022 Procedure: CYSTOSCOPY, URETHERAL DILATION, PROSTATE ULTRASOUND AND PROSTATE BIOPSY; Surgeon: Florian Whitt MD; Location: [facility] Main OR; Service: Urology NEEDLE BIOPSY PROSTATE N/A 04/20/2022 Procedure: NEEDLE BIOPSY PROSTATE; Surgeon: Florian Whitt MD; Location: [facility] Main OR; Service: Urology Social History Socioeconomic History Marital status: Tobacco Use Smoking status: Every Day Packs/day: 2.00 Types: Cigarettes Start date: 03/05/1990 Smokeless tobacco: Never Vaping Use Vaping Use: Never used Substance and Sexual Activity Alcohol use: Not Currently Drug use: Never Family History Problem Relation Age of Onset Diabetes Mother No Known Problems Father Melanoma Brother Coronary artery disease Maternal Uncle ALLERGIES AND MEDICATIONS Allergies: Patient has no known allergies. Current Outpatient Medications: acetaminophen (TYLENOL) 325 MG tablet, Take 2 (two) tablets (650 mg total) by mouth every 6 (six) hours as needed for pain ., Disp: , Rfl: amLODIPine (NORVASC) 5 MG tablet, Take 1 (one) tablet (5 mg total) by mouth daily Start: 04/24/22., Disp: 30 tablet, Rfl: 0 tamsulosin (FLOMAX) 0.4 mg capsule, Take 1 (one) capsule (0.4 mg total) by mouth every evening ., Disp: 30 capsule, Rfl: 0 REVIEW OF SYSTEMS: CONSTITUTIONAL: No weight loss, malaise, or fatigue EYES: No changes in vision, no blurry vision EARS, NOSE, MOUTH, THROAT: No change in hearing, No difficulty swallowing. CARDIOVASCULAR: No chest pain or heart palpitations. RESPIRATORY: No difficulty breathing or wheezing. GI: No changes in bowel habit. No blood in his stool. : No dysuria, hematuria, or urinary tract infections. The rest as above in the HPI. MUSCULOSKELETAL: No joint pain or swelling. VASCULAR: No peripheral edema. No calf pain with exertion. NEURO: No changes in gait or sensation. SKIN: No rashes or lesions. PSYCHIATRIC: No depressive or suicidal thoughts PHYSICAL EXAM: CONSTITUTIONAL: VITAL SIGNS: Vitals: 04/25/22 1113 BP: (!) 163/90 Pulse: 76 SpO2: 91% GENERAL: Well appearing. No acute distress. EYES: PERRLA, EOMI EARS, NOSE, MOUTH, THROAT: mucous memebranes moist, trachea midline CARDIOVASCULAR: RRR, normal carotid pulse, no peripheral edema. ABDOMEN: Soft, nondistended, nontender. BACK: No CVA tenderness. : Deferred per patient MUSCULOSKELETAL: normal extremity ROM with no edema LYMPH: No cervical or supraclavicular lymphadenopathy NEURO: Normal gait, CN II-XII grossly intact PSYCHATRIC: A & O x3, mood and affect appropriate SKIN: No rashes, ulcers, or lesions visible ASSESSMENT / PLAN: Problem List Items Addressed This Visit Genitourinary Benign prostatic hyperplasia with urinary retention Stricture of male urethra He is now status post dilation of a membranous urethral stricture and was able to void to completion today when the catheter was removed. Adenocarcinoma of prostate (HCC) Biopsy performed recently for an elevated PSA to 27. The biopsy is positive for prostate cancer in all of the cores. The highest Isadora score was 4+5 but he also had areas with Flagler's 4+3, and also 3+4. This is high-grade potentially advanced disease. I discussed this in detail with the patient and his . We are going to plan a metastatic work-up with bone scan and CT scan of the abdomen pelvis. He will follow-up after that to discuss treatment options. Relevant Orders Basic Metabolic Panel NM Bone Whole Body CT Abdomen Pelvis With And Without Contrast Renal insufficiency Etiology is unclear. It is perhaps contributed to by incomplete bladder emptying. He did empty the bladder better today after dilation of the urethra at the time of the biopsy. During the hospitalization however he was determined to likely has some congestive heart failure or fluid overload issues. He will be managed by primary care regarding these issues going forward. I am going to have him get a basic metabolic profile in the near future to check on the progress of his renal function. Prior to leaving the hospital his creatinine had decreased down to 1.9 versus peak of 4. We discussed the differential diagnosis which includes: Patient wants to pursue evaluation with: We discussed treatment options including: Florian Whitt M.D [facility] documented in this encounter [facility] 04-25-2022 Evaluation + Plan note Associated Problem(s): Renal insufficiency Etiology is unclear. It is perhaps contributed to by incomplete bladder emptying. He did empty the bladder better today after dilation of the urethra at the time of the biopsy. During the hospitalization however he was determined to likely has some congestive heart failure or fluid overload issues. He will be managed by primary care regarding these issues going forward. I am going to have him get a basic metabolic profile in the near future to check on the progress of his renal function. Prior to leaving the hospital his creatinine had decreased down to 1.9 versus peak of 4. [facility] 04-25-2022 Miscellaneous Notes Associated Problem(s): Renal insufficiency Etiology is unclear. It is perhaps contributed to by incomplete bladder emptying. He did empty the bladder better today after dilation of the urethra at the time of the biopsy. During the hospitalization however he was determined to likely has some congestive heart failure or fluid overload issues. He will be managed by primary care regarding these issues going forward. I am going to have him get a basic metabolic profile in the near future to check on the progress of his renal function. Prior to leaving the hospital his creatinine had decreased down to 1.9 versus peak of 4. Associated Problem(s): Adenocarcinoma of prostate (HCC) Biopsy performed recently for an elevated PSA to 27. The biopsy is positive for prostate cancer in all of the cores. The highest Isadora score was 4+5 but he also had areas with Flagler's 4+3, and also 3+4. This is high-grade potentially advanced disease. I discussed this in detail with the patient and his . We are going to plan a metastatic work-up with bone scan and CT scan of the abdomen pelvis. He will follow-up after that to discuss treatment options. Associated Problem(s): Stricture of male urethra He is now status post dilation of a membranous urethral stricture and was able to void to completion today when the catheter was removed. documented in this encounter [facility] 04-25-2022 Evaluation + Plan note Associated Problem(s): Adenocarcinoma of prostate (HCC) Biopsy performed recently for an elevated PSA to 27. The biopsy is positive for prostate cancer in all of the cores. The highest Flagler score was 4+5 but he also had areas with Isadora's 4+3, and also 3+4. This is high-grade potentially advanced disease. I discussed this in detail with the patient and his . We are going to plan a metastatic work-up with bone scan and CT scan of the abdomen pelvis. He will follow-up after that to discuss treatment options. [facility] 04-25-2022 Evaluation + Plan note Associated Problem(s): Stricture of male urethra He is now status post dilation of a membranous urethral stricture and was able to void to completion today when the catheter was removed. [facility] 04-23-2022 Consult note Associated Order (s): IP CONSULT TO CARE MANAGEMENT Care Management Consult Note Date: 04/23/2022 Time: 1:58 PM Patient Name: Ginger Weldon Date of : 1960 Reason for Consult: Discharge Needs Discharge Plan: D/C Disposition: Home HME: Oxygen HME Agency: [facility] Discharging Transportation Plan: Discharge Plan Status: chart reviewed and spoke with Dr. Cyr; has qualifying o2 saturations and will need home o2; ordered and face to face completed. Called [place] [facility] to deliver; pt has pcp for follow up and denies needs for home health 4:21 PM called [employer] and confirmed there is a driver medic planning to deliver portable o2 tank to hospital for discharge today Assessment and Background Information: Living Arrangements: Spouse/significant other Support Systems: Spouse/significant other Assistance Needed: NO Type of Residence: Private residence Prior to Admission Home Care Services: No Has discharge transport been arranged?: No [facility] 04-23-2022 Consult note Associated Order (s): IP CONSULT TO CARE MANAGEMENT Care Management Consult Note Date: 04/23/2022 Time: 1:58 PM Patient Name: Ginger Weldon Date of : 1960 Reason for Consult: Discharge Needs Discharge Plan: D/C Disposition: Home HME: Oxygen HME Agency: [facility] Discharging Transportation Plan: Discharge Plan Status: chart reviewed and spoke with Dr. Cyr; has qualifying o2 saturations and will need home o2; ordered and face to face completed. Called [place] [facility] to deliver; pt has pcp for follow up and denies needs for home health 4:21 PM called [employer] and confirmed there is a driver medic planning to deliver portable o2 tank to hospital for discharge today Assessment and Background Information: Living Arrangements: Spouse/significant other Support Systems: Spouse/significant other Assistance Needed: NO Type of Residence: Private residence Prior to Admission Home Care Services: No Has discharge transport been arranged?: No Associated Order(s): IP CONSULT TO NEPHROLOGY Resident Consult Note Patient Name: Ginger Weldon : 1960 Admit Date: [id number] Assessment and Plan Patient is a 61 y.o. male with a past medical history significant for BPH, undx ANGEL, COPD, CHF non compliant with PCP who presented to [facility] 04/20/2022 who presents for elective cystoscopy, urethral dilation and prostate biopsy due to elevated PSA on arrival found to be hypoxic w/ CXR significant for fluid overload/CHF/Pulmnonary edema, overnight Cr worsening, Nephrology consulted for BESSIE, elevated BNP, fluid overload. BESSIE - Etiology unclear, likely obstrucitve in setting of recent procedure,concern for chronic hydronephrosis in the setting of obstruction - CXR shows bilateral opacities Rt>Lt - Recent cystoscopy 04/20/22, with prostate biopsy - Required 4 doses of hydralazine 5 mg during procedure and post op required 4 doses of labetalol 5mg for HTN - Ordered UA, Urine sodium, Urine creatinine, Renal US ordered, Encourage PO intake, avoid nephrotoxic meds, will follow Hypernatremia - Etiology unclear, conern for hypertonic hypernatremia, unsure of chronicity, was hypernatremic on admit - S/p cystoscopy 5.7 L UOP, with only 50 mL being urine - On exam pt is euvolemic - Received 40mg IV lasix once - Received 75mL/hr LR for 6 hrs over last 24 hrs - Ordered serum osms, urine osms Chief Complaint: Obstructive uropathy History of Present Illness Patient is a 61 y.o. male with a past medical history significant for BPH, undx ANGEL, COPD, CHF non compliant with PCP who presented to [facility] 04/20/2022 who presents for elective cystoscopy, urethral dilation and prostate biopsy due to elevated PSA on arrival found to be hypoxic w/ CXR significant for fluid overload/CHF/Pulmnonary edema, overnight Cr worsening, Nephrology consulted for BESSIE, elevated BNP, fluid overload. Pt endorses increase SOB s/p cystoscopy. Pt states he is not on oxygen at home but is requiring 2 L NC currently. Pt denies N/V or CP. Able to eat breakfast without becoming SOB. Pt is at bedside and states pt has been dealing with this obstruction for approximately 3-4 months Past Medical/ Surgical/ Social/ Family History Past Medical History: Diagnosis Date BESSIE (acute kidney injury) (HCC) BPH (benign prostatic hyperplasia) Elevated blood pressure reading with diagnosis of hypertension Nicotine dependence History reviewed. No pertinent surgical history. Family History Problem Relation Age of Onset Diabetes Mother No Known Problems Father Melanoma Brother Coronary artery disease Maternal Uncle Social History Socioeconomic History Marital status: Tobacco Use Smoking status: Every Day Packs/day: 2.00 Types: Cigarettes Start date: 03/05/1990 Smokeless tobacco: Never Vaping Use Vaping Use: Never used Substance and Sexual Activity Alcohol use: Not Currently Drug use: Never Patient Allergies I have reviewed the patient's allergies. Patient has no known allergies. Patient Review of Systems Review of Systems Constitutional: Negative for activity change, chills, fatigue and fever. Respiratory: Positive for shortness of breath. Negative for cough, chest tightness and wheezing. Cardiovascular: Negative for chest pain, palpitations and leg swelling. Gastrointestinal: Positive for diarrhea. Negative for abdominal distention, abdominal pain and constipation. Genitourinary: Positive for decreased urine volume and difficulty urinating. Negative for dysuria. Skin: Negative for color change and rash. Physical Exam Vital Signs: BP (!) 141/68 Pulse 60 Temp 98.1 F (36.7 C) (Oral) Resp 16 Ht 5' 10 Wt 101.1 kg (222 lb 14.2 oz) SpO2 93% BMI 31.98 kg/m Physical Exam Constitutional: General: He is not in acute distress. Appearance: Normal appearance. He is normal weight. HENT: Head: Comments: Large irregular, asymmetric, raised nevus on Lt cheek Nose: Nose normal. Mouth/Throat: Mouth: Mucous membranes are moist. Pharynx: Oropharynx is clear. Eyes: Extraocular Movements: Extraocular movements intact. Conjunctiva/sclera: Conjunctivae normal. Cardiovascular: Rate and Rhythm: Normal rate and regular rhythm. Pulses: Normal pulses. Heart sounds: Normal heart sounds. Pulmonary: Effort: Pulmonary effort is normal. Breath sounds: Normal breath sounds. No rales. Abdominal: General: Abdomen is flat. Bowel sounds are normal. There is no distension. Palpations: Abdomen is soft. Tenderness: There is no abdominal tenderness. There is no right CVA tenderness, left CVA tenderness or guarding. Musculoskeletal: Right lower leg: No edema. Left lower leg: No edema. Skin: General: Skin is warm and dry. Neurological: Mental Status: He is alert and oriented to person, place, and time. Psychiatric: Mood and Affect: Mood normal. Behavior: Behavior normal. Thought Content: Thought content normal. Judgment: Judgment normal. Additional Data - Labs/ Radiology/ etc. Recent Labs 04/20/221 NA 154* K 3.9 CL 111* BICARB 27 BUN 26* CREATININE 4.00* GLUCOSE 159* Recent Labs 04/20/22 2140 WBC 15.79* HGB 13.7 HCT 41.8 PLT 298 No results found for: ALT, AST, GGT, ALKPHOS, BILITOT, ALBUMIN No results for input(s): INR in the last 72 hours. Lab Results Component Value Date HGBA1C 6.1 (H) 04/20/2022 Patient Home Medications Active Home Medications Medication Sig Take Last Dose On Take Morning of Surgery Comment(s) ciprofloxacin HCl (CIPRO) 500 MG tablet Take 1 (one) tablet (500 mg total) by mouth 2 (two) times a day for 3 days . tamsulosin (FLOMAX) 0.4 mg capsule Take 1 (one) capsule (0.4 mg total) by mouth every evening . traMADoL (ULTRAM) 50 mg tablet Take 1 (one) tablet (50 mg total) by mouth every 4 (four) hours as needed for pain (Days supply per fill: 3) . Associated attestation - Josue, Sunshine Norris MD - 04/21/2022 1:13 PM EDT I have seen the patient and discussed the case on rounds with the resident physician. I have reviewed the history, physical, and assessment/plan with the following comments. Pt oh 61 yom with h/o BPH, ANGEL, COPD and CHF who presents for elective cystoscopy. He had a creatinine of 2.5 on 04/11/22. He did not have labs prior since he had not seen a physician on a regular basis. He now presents with a creatinine of 4. He is s/p cystoscopy, urethral dilation and prostate biopsy on 04/20. His bp did drop from the 200s to 110s-120s and continues to be variable. BESSIE on CKD stage IV. Unclear what his baseline creatinine is, but likely closer to mid 2 range. Now in nonoliguric BESSIE. BESSIE possibly from prolonged obstruction from BPH. He has been having these symptoms for at least the past year. Given that his creatinine is still 3.9 today, he may be in ATN from prolonged obstruction. Also possibly in ATN from hemodynamic changes. Start on 1/2 ns at 100 cc/hr. No acute indication for HD. Hypernatremia. Have encouraged him to increase his water intake. Above fluids should help. HTN. He likely has had HTN for several years. On PRN meds. BP variable, but improving. May need to start standing amlodipine or low dose coreg. BPH. S/p cystoscopy with urethral dilation and placement of negrete. Has a nodular prostate- suspicious for prostate Ca. Biopsy was taken. Sunshine Salas MD [facility] Please use Secure Chat to contact or Physician Directory for cell phone [phone] (after 5pm/weekends) Associated Order(s): IP CONSULT TO CARE MANAGEMENT Care Management Consult Note Date: 04/21/2022 Time: 7:16 AM Patient Name: Ginger Weldon Date of : 1960 Reason for Consult: Discharge Needs Pcp information placed on AVS Assessment and Background Information: Living Arrangements: Spouse/significant other Support Systems: Spouse/significant other Assistance Needed: NO Type of Residence: Private residence Prior to Admission Home Care Services: No Courtney ROBLES,RN,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 male with a history of BPH, Not compliant with PCP who presented to [facility] 04/20/2022 for elective cystoscopy, urethral dilation and prostate biopsy due to elevated PSA. Still requiring oxygen.. Urology recommended admission for observation. [facility] is consulted for medical management due to difficulty weaning of oxygen postop. Acute hypoxic respiratory failure: Multifactorial related to obesity, hypoventilation syndrome, undiagnosed sleep apnea, COPD and CHF. Chest x-ray with concerns of fluid overload/CHF/pulmonary edema. Echocardiogram, CBC, BMP, COVID, BNP, pro calcitonin, D dimer troponin pending. Lasix x1. May need further dosing based on response. Wean oxygen as able. Will need sleep study as outpatient. 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 If above work-up is unremarkable, respiratory distress continues, will order CTA to rule out PE. BPH with urinary retention: Continued Flomax. Elevated PSA. S/p prostate biopsy 06/20/[address] Whitt. Urology primary. Elevated blood pressure: Uncontrolled. Likely undiagnosed hypertension. Has not seen PCP for a while. Previously blood pressure has been high at different work related checkups. Continued hydralazine/labetalol. May need oral; antihypertensive at discharge based on BP trend Nicotine dependence: Smokes 2 packs of cigarettes a day. Refused patch. Cessation advised. Could have undiagnosed COPD. Continued duoneb PRN. Outpatient PFT recommended. Code status: Full DVT Prophylaxis: As per urology. Thank you for allowing us to participate in the care of your patient. For any questions, please call the number of the covering hospitalist listed under the treatment team in care [facility]. Current living situation: Home Expected Disposition: Home Estimated discharge date: As per primary-likely when weaned off oxygen, BP stable and post f/u of workup Chief Complaint / Reason for Consult: Medical management due to difficulty weaning off oxygen postop. History of Present Illness: 61-year-old male with past medical history of BPH with urinary retention, came for elective cystoscopy, urethral dilation and prostate biopsy. His PSA was elevated-27.10-04/11/2022. It was difficult to wean him off oxygen.. Urology recommended admission for observation. Seen patient at bedside. Still on nonrebreather. 8 L. 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 No prior history of blood clots. Has not seen PCP for a while. Not vaccinated for COVID. Not been diagnosed with hypertension, diabetes but has not seen PCP for a while. At prior occupational health checkups from work, he was told that his blood pressure is high. He does not take any hypertensive medications at home. He also snores. Has not gotten a sleep study done. Smokes 2 packs of cigarettes a day. Not diagnosed with COPD prior. No leg swelling. No prior Hx of blood clot. A1c, lipid panel ordered. ROS: 10 systems were reviewed and negative, except as noted above. Past Medical, Surgical, Social, Family History: Reviewed Past Medical History: Diagnosis Date BESSIE (acute kidney injury) (HCC) BPH (benign prostatic hyperplasia) Elevated blood pressure reading with diagnosis of hypertension Nicotine dependence History reviewed. No pertinent surgical history. Social History Socioeconomic History Marital status: Tobacco Use Smoking status: Every Day Packs/day: 2.00 Types: Cigarettes Start date: 03/05/1990 Smokeless tobacco: Never Vaping Use Vaping Use: Never used Substance and Sexual Activity Alcohol use: Not Currently Drug use: Never Family History Problem Relation Age of Onset Diabetes Mother No Known Problems Father Melanoma Brother Coronary artery disease Maternal Uncle Current Medications: Medication list reviewed with patient. Please see MAR for full details. Physical Exam: BP (!) 172/89 (BP Location: Left arm, Patient Position: Lying) Pulse 82 Temp 98.6 F (37 C) (Temporal) Resp (!) 22 Ht 5' 10 Wt 101.1 kg (222 lb 14.2 oz) SpO2 (!) 89% BMI 31.98 kg/m General: anxious on non re breather Eyes: EOMI ENT: neck supple Cardiovascular: Regular rate. Respiratory: crackles in lung schmidt bilaterally, middle schmidt and bases. Wheezing in upper lung fiends but seems to be transmitted Gastrointestinal: Soft, non tender Genitourinary: no suprapubic tenderness Musculoskeletal: +1 edema Skin: warm, dry Neuro: Alert. No focal deficit Psych: Mood appropriate. Labs, Imaging, and Studies reviewed: Invalid input(s): MAG JACKIE documented in this encounter [facility] 04-23-2022 Hospital course Narrative [employer] DISCHARGE SUMMARY Ginger Weldon Account: [id number] Admitted: 04/20/2022 Discharge Date/Time: 04/23/22 1:59 PM ___ Handoff to PCP Routine hospital follow up Recommend outpatient sleep evaluation Recommended repeat BMP in 1 week to follow-up creatinine if no improvement will need nephrology consultation. Clinical Summary Ginger Weldon is a 61 y.o. male with a history of BPH who presented to [facility] 04/20/2022 for elective cystoscopy, urethral dilation and prostate biopsy due to elevated PSA by Dr. Whitt (urology). Course complicated by post-op respiratory failure, BESSIE, hypernatremia for which patient was admitted. [facility] consulted for medical management; then assumed care 04/22/22. Acute hypoxic respiratory failure: multifactorial related to obesity hypoventilation syndrome, undiagnosed sleep apnea, suspected COPD and CHF. BNP 2k, Chest x-ray 04/20/22 with concerns of fluid overload/pulmonary edema. TTE 04/22/22 with EF 60%, no WMA, diastolic dysfunction. Given IV Lasix x 1. Monitor and wean O2 as able. 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 BESSIE: on suspected CKD. Unclear baseline, as no recent labs on file. Cr 4 on 04/21/22. Suspect component of obstructive in setting of above. Renal US 04/22/22 with mild to moderate hydronephrosis of bilateral kidneys. Creatinine Improving. Neph following, okay for discharge recommended BMP 1 week from discharge and referral to nephrology if renal function does not improve. Hypernatremia: Na 154 on 04/20/22. Overall euvolemic on exam. Resolved. BPH with urinary retention. S/p prostate biopsy 06/20/[address] Whitt. Continued Flomax. Urology followed, maintain Negrete catheter for now, office will call to arrange outpatient trial of void. Elevated Troponin: Troponin 36 on 04/20/22 with negative delta; EKG 04/21/22 with no acute ischemic changes. Denied chest pain. Suspect demand ischemia in setting of BESSIE, post-op. TTE as above. Leukocytosis: WBC 15 on 04/20/22. No signs/symptoms of infection. Suspect reactive. Recheck as outpatient. Elevated blood pressure: SBP 170-180s post-op. Likely undiagnosed hypertension (has not seen PCP).Norvasc started. Neph followed Prediabetes: admit A1c 6.1. Outpatient follow-up. Prolonged QTc: EKG 04/21/22 with QTc 493. Optimize electrolytes. Monitor and avoid QT prolonging meds as able. Nicotine dependence: 2 packs of cigarettes a day. Refused patch. Cessation advised. Could have undiagnosed COPD. Continued duoneb PRN. Outpatient PFT recommended. Suspected ANGEL: recommend outpatient sleep study. Code status: Full Discharge Medications Medication List START taking these medications amLODIPine 5 MG tablet Commonly known as: NORVASC Take 1 (one) tablet (5 mg total) by mouth daily Start: 04/24/22. Start taking on: April 24, 2022 ciprofloxacin HCl 500 MG tablet Commonly known as: CIPRO Take 1 (one) tablet (500 mg total) by mouth 2 (two) times a day for 3 days . traMADoL 50 mg tablet Commonly known as: ULTRAM Take 1 (one) tablet (50 mg total) by mouth every 4 (four) hours as needed for pain (Days supply per fill: 3) . CONTINUE taking these medications acetaminophen 325 MG tablet Commonly known as: TYLENOL tamsulosin 0.4 mg capsule Commonly known as: FLOMAX Take 1 (one) capsule (0.4 mg total) by mouth every evening . Where to Get Your Medications These medications were sent to [facility] [address] [place], [place] [id number] amLODIPine 5 MG tablet ciprofloxacin HCl 500 MG tablet tamsulosin 0.4 mg capsule traMADoL 50 mg tablet Physician(s) Family: Kelvin Kohler MD, , Address: [address] [place] [address] / [place] [id number] Follow Up: Florian Whitt MD [address] [phone] Follow up office will call for follow-up Kelvin Kohler MD [address] [place] [address] Follow up BMP in 1 week from discharge. You need a referral for local Nephrology if your renal function does not improve. Additional Information: Patient seen and examined day of discharge. For more information regarding patient's care, including complete radiology reports, please contact [facility] at Patient instructions, including activity, were given to the patient/family at discharge. Please see the After Visit Summary in the medical record for details. Time spent on discharge: > 30 minutes Completed by: Eduar Cyr on 04/23/22, 1:59 PM documented in this encounter [facility] 04-23-2022 Note Formatting of this n ote might be different from the original. Face to face or home O2 patient dropped to 83% on RA with ambulation and improved to 91% with 2LNC. Patient will need 2LNC around the clock for CHF, suspected COPD and ANGEL [facility] 04-23-2022 Miscellaneous Notes Face to face or home O2 patient dropped to 83% on RA with ambulation and improved to 91% with 2LNC. Patient will need 2LNC around the clock for CHF, suspected COPD and ANGEL [facility] [id number] N [id number] 1960 DATE 04/20/2022 OPERATIVE REPORT SURGEON FLORIAN WHITT MD PREOPERATIVE DIAGNOSIS Elevated PSA and incomplete bladder emptying with urethral obstruction. POSTOPERATIVE DIAGNOSIS Elevated PSA and incomplete bladder emptying with urethral obstruction. ANESTHESIA General. ESTIMATED BLOOD LOSS Minimal. COMPLICATIONS None. INDICATIONS AND CONSENT This is a 61-year-old male who was noted to have a significantly elevated PSA recently to 27. Digital rectal exam is consistent with a very hard, nodular prostate suspicious for prostate cancer. He has also been having difficulty urinating and incomplete bladder emptying. His creatinine was noted to be slightly elevated at 2. An attempt was made to do a flexible cystoscopy in the office. However, due to the rigidity and obstruction through the prostate, the scope would not pass. He now presents for the above-mentioned procedure. He understands the risks and has given informed consent. DESCRIPTION OF PROCEDURE The patient was brought to the operative suite and placed on the table in the supine position. He was placed under general anesthetic. He was then placed into the left lateral decubitus position with knees tucked toward chest. A time-out was performed confirming identity, diagnosis, and planned surgical procedure. Next, the ultrasound probe was lubricated and passed into the rectum. The prostate was imaged in 2 planes. It was noted to be diffusely irregular with a somewhat irregular-appearing capsule and some enlargement of the seminal vesicles. Prostate volume measured 25 cc. Local anesthetic was performed by injecting a 1% lidocaine solution into the elizabeth prostatic tissues near the junction of the seminal vesicles to the base of the prostate bilaterally. Next, a total of 12 biopsy cores were obtained using a biopsy needle. Two cores each were obtained from the apex, mid, and base bilaterally and placed in separately labeled containers that were sent to Pathology for inspection. Following this, the probe was removed. He was replaced to the supine position and then placed into the dorsal lithotomy position in the [facility]. He was prepped and draped in the usual sterile fashion. A rigid cystoscope was assembled. The 20- Stateless rigid cystoscope was lubricated and passed into the urethra. The penile urethra and bulbous urethra appeared unremarkable. It was very tight at the membranous urethra, and the scope would not pass. I was able to manipulate a guidewire through this area and through the prostate and into the bladder without resistance. The scope was removed. Next, the sequential urethral dilator set was obtained and used to dilate the urethra sequentially up to 20-Stateless. Following this, the rigid scope was able to be passed through the prostate and through that area in the membranous urethra and into the bladder. The bladder was mildly trabeculated. The ureteral orifices appeared normal. There were no tumors, stones, or lesions noted within the bladder. The scope was removed, and then an 18-Stateless [place] tip catheter was placed over the guidewire and into the bladder. The balloon was inflated with 10 cc of saline and this was left to bag drainage. This concluded the procedure. He tolerated this well and was taken in good condition to the postanesthesia care unit. FLORIAN WHITT MD D 04/20/2022 16:30 [id number] T 04/21/2022 02:47 ESW/MODL BNP significantly elevated 2010. Signs of fluid overload on imaging. Creatinine significantly elevated at 4. Nephrology consulted Brief Post Operative Note Patient Name: Ginger Weldon : 1960 (61 y.o.) Date of Service: 04/20/2022 CSN: [id number] Procedure(s): CYSTOSCOPY, URETHERAL DILATION, PROSTATE ULTRASOUND AND PROSTATE BIOPSY NEEDLE BIOPSY PROSTATE Pre-Operative Diagnoses: * Elevated PSA [R97.20] Benign prostatic hyperplasia with urinary retention [N40.1, R33.8] Post-Operative Diagnoses: * Same as Pre-Op Diagnosis * Elevated PSA [R97.20] * Benign prostatic hyperplasia with urinary retention [N40.1, R33.8] Surgeon(s) and Role: * Florian Whitt MD - Primary Anesthesiologist: Ran Kaur MD Editor Map: Froy Maddox RN Scrub Person: Geoffrey Espinosa RN Operative findings: see dictated number Intra and immediate post-operative complications: none Type of anesthesia used: General Estimated blood loss: 0 mL Estimated urine output: Refer to surgical log Specimen(s): ID Type Source Tests Collected by Time Destination A : Tissue Prostate, Right [place] TISSUE EXAM Florian Whitt MD 04/20/20221625 B : Tissue Prostate, Right Mid TISSUE EXAM Florian Whitt MD 04/20/20221626 C : Tissue Prostate, Right [place] TISSUE EXAM Florian Whitt MD 04/20/20221626 D : Tissue Prostate, Left [place] TISSUE EXAM Florian Whitt MD 04/20/20221627 E : Tissue Prostate, Left Mid TISSUE EXAM Florian Whitt MD 04/20/20221627 F : Tissue Prostate, Left Base TISSUE EXAM Florian Whitt MD 04/20/2022 1628 Implant(s): * No implants in log * Drain(s): * No LDAs found * Wound(s): * No LDAs found * Florian Whitt MD 04/20/2022 4:32 PM documented in this encounter [facility] 04-23-2022 History of Present illness Narrative [facility] Inpatient Progress Note 04/23/2022 Ginger Weldon 1960 [id number] Assessment/Plan: Ginger Weldon is a 61 y.o. male with a history of BPH who presented to [facility] 04/20/2022 for elective cystoscopy, urethral dilation and prostate biopsy due to elevated PSA by Dr. Whitt (urology). Course complicated by post-op respiratory failure, BESSIE, hypernatremia for which patient was admitted. [facility] consulted for medical management; then assumed care 04/22/22. Acute hypoxic respiratory failure: multifactorial related to obesity hypoventilation syndrome, undiagnosed sleep apnea, suspected COPD and CHF. BNP 2k, Chest x-ray 04/20/22 with concerns of fluid overload/pulmonary edema. TTE 04/22/22 with EF 60%, no WMA, diastolic dysfunction. Given IV Lasix x 1. Monitor and wean O2 as able. 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 BESSIE: on suspected CKD. Unclear baseline, as no recent labs on file. Cr 4 on 04/21/22. Suspect component of obstructive in setting of above. Renal US 04/22/22 with mild to moderate hydronephrosis of bilateral kidneys. Creatinine Improving. Neph following, okay for discharge recommended BMP 1 week from discharge and referral to nephrology if renal function does not improve. Hypernatremia: Na 154 on 04/20/22. Overall euvolemic on exam. Resolved. BPH with urinary retention. S/p prostate biopsy 06/20/[address] Whitt. Continued Flomax. Urology followed, maintain Negrete catheter for now, office will call to arrange outpatient trial of void. Elevated Troponin: Troponin 36 on 04/20/22 with negative delta; EKG 04/21/22 with no acute ischemic changes. Denied chest pain. Suspect demand ischemia in setting of BESSIE, post-op. TTE as above. Leukocytosis: WBC 15 on 04/20/22. No signs/symptoms of infection. Suspect reactive. Recheck as outpatient. Elevated blood pressure: SBP 170-180s post-op. Likely undiagnosed hypertension (has not seen PCP).Norvasc started. Neph followed Prediabetes: admit A1c 6.1. Outpatient follow-up. Prolonged QTc: EKG 04/21/22 with QTc 493. Optimize electrolytes. Monitor and avoid QT prolonging meds as able. Nicotine dependence: 2 packs of cigarettes a day. Refused patch. Cessation advised. Could have undiagnosed COPD. Continued duoneb PRN. Outpatient PFT recommended. Suspected ANGEL: recommend outpatient sleep study. Code status: Full DVT Prophylaxis: As per urology. Thank you for allowing us to participate in the care of your patient. For any questions, please call the number of the covering hospitalist listed under the treatment team in care [facility]. Current living situation: Home Expected Disposition: Home Estimated discharge date: TBD; suspect ~04/23-04/24 updated at bedside 04/23/22 Subjective: Patient new to me today. Previous records reviewed and summarized by me. No new complaints no overnight events. Denied chest pain, shortness of breath, abdominal pain, fevers, chills. Okay for discharge home. Physical Exam: BP (!) 171/75 (BP Location: Left arm, Patient Position: Lying) Pulse 87 Temp 98.3 F (36.8 C) (Oral) Resp 16 Ht 5' 10 Wt 101.1 kg (222 lb 14.2 oz) SpO2 (!) 83% Comment: walking in chu; no o2 on BMI 31.98 kg/m General: NAD Eyes: gaze conjugate ENT: neck supple Cardiovascular: Regular rate Respiratory: diminished bilaterally Gastrointestinal: Soft, non tender, bowel sounds present Genitourinary: negrete with red-tinged urine Musculoskeletal: No bony deformities Skin: warm, dry Neuro: Alert and oriented, answers questions appropriately, no focal deficits. Psych: Mood appropriate. Current Medications: amLODIPine 5 mg Oral Daily tamsulosin 0.4 mg Oral After evening meal Labs, Imaging and Studies reviewed: Results from last 7 days Lab Units 04/23/22 0601 04/22/22 0551 04/20/22 2140 WBC K/mcL 13.54* 13.00* 15.79* HGB g/dL 13.2* 13.5 13.7 HCT % 41.4 40.8* 41.8 PLT K/mcL 255 248 298 Results from last 7 days Lab Units 04/23/22 0601 04/22/22 1941 04/22/22 0551 SODIUM mmol/L 145 147* 146* POTASSIUM mmol/L 3.7 3.3* 3.0* CHLORIDE mmol/L 106 107 107 BICARB mmol/L 30 29 26 BUN mg/dL 21 21 23 CREATININE mg/dL 1.98* 2.13* 2.54* EGFR mL/min/1.73 m2 37* 34* 28* GLUCOSE mg/dL 110* 153* 116* CALCIUM mg/dL 9.1 9.0 8.8 PHOSPHORUS mg/dL 3.3 -- 3.8* Results from last 7 days Lab Units 04/21/22 0958 ALT U/L 9 AST U/L 10 ALK PHOS U/L 111 BILIRUBIN TOTAL mg/dL 0.7 UROLOGY POSTOPERATIVE PROGRESS NOTE Patient Name: Ginger Weldon MR #: [id number] DATE: 04/23/2022 ASSESSMENT / PLAN: Elevated PSA BPH with urinary retention -Patient is postop day 3 from cystoscopy urethral dilation ultrasound-guided prostate biopsy with Dr. Whitt -Patient postoperative course complicated by the increased need for oxygen unable to wean -Hospital medicine evaluating to determine cause, possible fluid overload/CHF. Echo 04/22 showed normal left ventricular systolic function - Still with use of nasal cannula but states he feels his breathing is much improved today -Negrete catheter draining clear yellow urine -Maintain Negrete catheter for now, family states Dr. Whitt advised him to maintain until Saturday. AVS updated with his information and our office will call to arrange outpatient trial of void. - Urology will sign off at this time Thank you very much for allowing me to participate in your patient care. If you have any further questions please don't hesitate to call. Maurilio Johnson CNP [facility] Urology Physicians Office: POST-OP DAY: 3 SUBJECTIVE: Ginger Weldon is a 61 y.o. male who underwent a prostate biopsy and urethral dilation on 04/20/22. The patient's postoperative course was complicated due to increased oxygen needs and nursing unable to wean patient. Hospital medicine was consulted and patient was found to require a cardiac echo, read still pending. Discussed with patient and family this morning wants medicine team establishes possible cause, fluid overload, possible congestive heart failure, unclear etiology, they will be able to give him more information regarding discharge. Discussed with patient and family in regards to the urology standpoint, he is doing well postoperatively with Negrete catheter in place. Per family was told by Dr. Whitt Negrete catheter will stay in place until Saturday, will have our office arrange follow-up care for trial of void. He has no urologic concerns at this time, no discomfort from Negrete catheter, is in agreement with the current plan although disappointed that he needs to remain in the hospital for additional work-up to be completed. Interval HPI Patient seen resting in bed this morning with family at bedside. He states he feels his breathing is much better and he is not having as many issues when getting up and moving as he was before. He has been working on his incentive spirometer and feels ready to go home OBJECTIVE: BP (!) 171/75 (BP Location: Left arm, Patient Position: Lying) Pulse 87 Temp 98.3 F (36.8 C) (Oral) Resp 16 Ht 5' 10 Wt 101.1 kg (222 lb 14.2 oz) SpO2 (!) 83% Comment: walking in chu; no o2 on BMI 31.98 kg/m General appearance: Alert, cooperative, and no distress Head: Normocephalic, without obvious abnormality, atraumatic Eyes: Conjunctivae/corneas clear Ears: Hearing grossly intact Neck: Supple, symmetrical, trachea midline Back: No CVA tenderness noted bilaterally Lungs: Effort normal, no respiratory distress Heart: Regular rate Abdomen: Soft, nontender, nondistended : Negrete catheter draining clear yellow urine Extremities: No edema or cyanosis, normal ROM Skin: Warm, dry Neurologic: Grossly normal Psych: Mood appropriate Temp: [98.1 F (36.7 C)-98.9 F (37.2 C)] 98.3 F (36.8 C) Heart Rate: [76-92] 87 Resp: [14-18] 16 BP: (155-171)/(74-79) 171/75 Fluid Management (24hrs): Intake/Output last 3 shifts: I/O last 3 completed shifts: In: - Out: 7195 [Urine:7195] Lab Results: Results from last 7 days Lab Units 04/23/22 0601 04/22/22 1941 04/22/22 0551 SODIUM mmol/L 145 147* 146* POTASSIUM mmol/L 3.7 3.3* 3.0* CHLORIDE mmol/L 106 107 107 BUN mg/dL 23 CREATININE mg/dL 1.98* 2.13* 2.54* GLUCOSE mg/dL 110* 153* 116* CALCIUM mg/dL 9.1 9.0 8.8 Results from last 7 days Lab Units 04/23/22 0601 04/22/22 0551 04/20/22 2140 WBC K/mcL 13.54* 13.00* 15.79* HGB g/dL 13.2* 13.5 13.7 HCT % 41.4 40.8* 41.8 PLT K/mcL 255 248 298 Urinalysis: Lab Results Component Value Date COLORUR Nisha (A) 04/21/2022 CLARITYUR Clear 04/21/2022 SPECGRAV 1.006 04/21/2022 PHUR 6.0 04/21/2022 PROTUR 100 (A) 04/21/2022 PROTUR 188.8 04/21/2022 GLUCUR Negative 04/21/2022 KETONESU Negative 04/11/2022 BILIUR Negative 04/21/2022 BLOODUR Moderate (A) 04/21/2022 NITRITEUR Negative 04/21/2022 LEUKESTUR Trace (A) 04/21/2022 WBCUR 9 (H) 04/21/2022 RBCUR 139 (H) 04/21/2022 BACTUR None Seen 04/21/2022 Urine Culture: No results found for: CULTUREURN Associated attestation - Cindi Roy MD - 04/23/2022 3:31 PM EST I have personally reviewed the history, discussed the patient with our REJECTOR/PA, and agree with the findings of the provider's history and physical. I concur with the assessment and plan. Cindi Roy MD, [facility] Urology Physicians Resident Progress Note Patient Name: Ginger Weldon : 1960 Admit Date: [id number] Assessment and Plan Patient is a 61 y.o. male with a PMHx of BPH, likely COPD and ANGEL. He presents to [facility] 04/20/22 for an elective cystoscopy, urethral dilation and prostate biopsy on 04/20 due to elevated PSA. With persistent hypoxia post-op, patient admitted for observation and workup of respiratory failure, BESSIE. Nephrology following for BESSIE on probable CKD, hypernatremia. BESSIE on probable CKD -Etiology likely chronic obstruction from BPH. No hypotension in setting of operation. Doubt prerenal etiology. -History of BPH with elevated PSA. S/p urethral dilation 04/20. Difficult weaning O2 post-op. Cr baseline suspected ~2-2.5. Admitted with Cr 4.0. Renal US with preliminary mild-moderate hydronephrosis b/l, no stones/masses/fluid collections identified. uOsm 220, Fatmata 75. -Negrete per Urology. Cr down-trending, likely explained by chronic obstructive uropathy/BPH. Needs BMP in 1 week from discharge with PCP. If still abnormal renal function, PCP to refer to local Nephrology. Ok for discharge from renal perspective. Hypernatremia, resolved -Unclear etiology. May be related to BESSIE and urinary retention. Denies free fluid restriction/decreased PO intake. -Improved with relief of urinary obstruction and IVF/increased PO intake. Urinary studies as above. All care and management plans will be discussed with the attending on service. Juan Zhu, Internal Medicine, PGY3 [phone] Chief Complaint Elective cystoscopy, urethral dilation Subjective Seen today. Feels well. No dyspnea, coughing. No chest pain. Good appetite, would like discharged today. Patient Review of Systems Review of Systems Constitutional: Negative for chills, fatigue and fever. Respiratory: Negative for cough, shortness of breath and wheezing. Cardiovascular: Negative for chest pain and leg swelling. Gastrointestinal: Negative for abdominal pain, constipation, diarrhea, nausea and vomiting. Genitourinary: Negative for difficulty urinating, frequency, penile discharge and penile pain. No problems with negrete Musculoskeletal: Negative for arthralgias and back pain. Neurological: Negative for dizziness, weakness, numbness and headaches. Physical Exam Vital Signs: BP (!) 158/79 Pulse 92 Temp 98.6 F (37 C) (Oral) Resp 16 Ht 5' 10 Wt 101.1 kg (222 lb 14.2 oz) SpO2 93% BMI 31.98 kg/m Physical Exam Constitutional: General: He is not in acute distress. HENT: Head: Normocephalic and atraumatic. Mouth/Throat: Mouth: Mucous membranes are moist. Cardiovascular: Rate and Rhythm: Normal rate. Heart sounds: No murmur heard. Pulmonary: Effort: Pulmonary effort is normal. No respiratory distress. Breath sounds: Wheezing (b/l, slight expiratory) present. Abdominal: General: Abdomen is flat. Tenderness: There is no abdominal tenderness. Musculoskeletal: Right lower leg: Edema (trace) present. Left lower leg: Edema (trace) present. Skin: General: Skin is warm. Findings: No rash. Neurological: General: No focal deficit present. Mental Status: He is alert and oriented to person, place, and time. Psychiatric: Mood and Affect: Mood normal. Behavior: Behavior normal. Additional Data I have independently reviewed the following: Active Medications, Radiology, Cardiology, Labs, and Notes Associated attestation - Hawa Montoya MD - 04/23/2022 2:02 PM EST I have seen the patient and discussed the case on rounds. Physical exam performed. Labs, radiologic studies, and procedures were reviewed with the student/safety intern/resident team. I agree with the house staff's A/P, with the following comments: Patient feeling good Denies back pain Good urine output via negrete, creatinine down to 1.98 Denies shortness of breath, on oxygen Assessment: Acute kidney injury, due to obstruction Baseline creatinine unknown BPH, status post urethral dilation Mild hypernatremia, improved to normal today, due to polyuria from relief of obstruction Plan: Encourage oral water intake Follow-up with PCP, who can make referral to local nephrology in [place] if he continues to have elevated creatinine at 2-3 months post relief of obstruction OK for discharge from renal standpoint Recall if questions arise Hawa Montoya MD [facility] Please use Secure Chat to contact or Physician Directory for cell phone [phone] (after 5pm/weekends) Please first contact the renal safety intern/resident who is following the patient. UROLOGY POSTOPERATIVE PROGRESS NOTE Patient Name: Ginger Weldon MR #: [id number] DATE: 04/22/2022 ASSESSMENT / PLAN: Elevated PSA BPH with urinary retention -Patient is postop day 1 from cystoscopy urethral dilation ultrasound-guided prostate biopsy with Dr. Whitt -Patient postoperative course complicated by the increased need for oxygen unable to wean -Hospital medicine evaluating and ordering new studies to determine cause, possible fluid overload/CHF they have agreed to take over as primary this evening. Echo pending today, still with use of nasal cannula -Negrete catheter draining nisha colored urine well -Maintain Negrete catheter for now, family states Dr. Whitt advised him to maintain until Saturday, our office to arrange outpatient trial of void Thank you very much for allowing me to participate in your patient care. If you have any further questions please don't hesitate to call. Cathy Puckett CNP [facility] Urology Physicians Office: POST-OP DAY: 2 SUBJECTIVE: Ginger Weldon is a 61 y.o. male who underwent a prostate biopsy and urethral dilation on 04/20/22. The patient's postoperative course was complicated due to increased oxygen needs and nursing unable to wean patient. Hospital medicine was consulted and patient was found to require a cardiac echo, read still pending. Discussed with patient and family this morning wants medicine team establishes possible cause, fluid overload, possible congestive heart failure, unclear etiology, they will be able to give him more information regarding discharge. Discussed with patient and family in regards to the urology standpoint, he is doing well postoperatively with Negrete catheter in place. Per family was told by Dr. Whitt Negrete catheter will stay in place until Saturday, will have our office arrange follow-up care for trial of void. He has no urologic concerns at this time, no discomfort from Negrete catheter, is in agreement with the current plan although disappointed that he needs to remain in the hospital for additional work-up to be completed. Interval HPI Patient has just returned from having an echo and some nisha colored urine draining. Family and patient endorses with lots of movement it will turn nisha and when he had a bowel movement earlier it got red but then turned back nisha/yellow again. Continues to flow well. They are eager for discharge. Primary medicine team advised maybe discharge tomorrow pending their findings. OBJECTIVE: BP (!) 167/78 (BP Location: Right arm, Patient Position: Lying) Pulse 80 Temp 98.1 F (36.7 C) (Oral) Resp 16 Ht 5' 10 Wt 101.1 kg (222 lb 14.2 oz) SpO2 93% BMI 31.98 kg/m General appearance: Alert, cooperative, and no distress Head: Normocephalic, without obvious abnormality, atraumatic Eyes: Conjunctivae/corneas clear Ears: Hearing grossly intact Neck: Supple, symmetrical, trachea midline Back: No CVA tenderness noted bilaterally Lungs: Effort normal, no respiratory distress Heart: Regular rate Abdomen: Soft, nontender, nondistended : Negrete catheter draining nisha colored urine Extremities: No edema or cyanosis, normal ROM Skin: Warm, dry Neurologic: Grossly normal Psych: Mood appropriate Temp: [98.1 F (36.7 C)-98.3 F (36.8 C)] 98.1 F (36.7 C) Heart Rate: [66-84] 80 Resp: [16] 16 BP: (146-169)/(72-91) 167/78 Fluid Management (24hrs): Intake/Output last 3 shifts: I/O last 3 completed shifts: In: - Out: 8295 [Urine:8295] Lab Results: Results from last 7 days Lab Units 04/22/22 0551 04/21/22 0958 04/20/22 2141 SODIUM mmol/L 146* 149* 154* POTASSIUM mmol/L 3.0* 4.4 3.9 CHLORIDE mmol/L 107 104 111* BUN mg/dL 23 28* 26* CREATININE mg/dL 2.54* 3.93* 4.00* GLUCOSE mg/dL 116* 123* 159* CALCIUM mg/dL 8.8 9.7 8.7 Results from last 7 days Lab Units 04/22/22 0551 04/20/22 2140 WBC K/mcL 13.00* 15.79* HGB g/dL 13.5 13.7 HCT % 40.8* 41.8 PLT K/mcL 248 298 Urinalysis: Lab Results Component Value Date COLORUR Nisha (A) 04/21/2022 CLARITYUR Clear 04/21/2022 SPECGRAV 1.006 04/21/2022 PHUR 6.0 04/21/2022 PROTUR 100 (A) 04/21/2022 PROTUR 188.8 04/21/2022 GLUCUR Negative 04/21/2022 KETONESU Negative 04/11/2022 BILIUR Negative 04/21/2022 BLOODUR Moderate (A) 04/21/2022 NITRITEUR Negative 04/21/2022 LEUKESTUR Trace (A) 04/21/2022 WBCUR 9 (H) 04/21/2022 RBCUR 139 (H) 04/21/2022 BACTUR None Seen 04/21/2022 Urine Culture: No results found for: CULTUREURN Associated attestation - Ila Lux MD - 04/22/2022 12:17 PM EST I have personally reviewed all pertinent labs, physicians, notes in this patient's chart. I have reviewed the note and concur with the documentation of Ginger Weldon. [facility] Inpatient Progress Note 04/22/2022 Ginger Weldon 1960 [id number] Assessment/Plan: Ginger Wledon is a 61 y.o. male with a history of BPH who presented to [facility] 04/20/2022 for elective cystoscopy, urethral dilation and prostate biopsy due to elevated PSA by Dr. Whitt (urology). Course complicated by post-op respiratory failure, BESSIE, hypernatremia for which patient was admitted. [facility] consulted for medical management; then assumed care 04/22/22. Acute hypoxic respiratory failure: multifactorial related to obesity hypoventilation syndrome, undiagnosed sleep apnea, COPD and CHF. BNP 2k, Chest x-ray 04/20/22 with concerns of fluid overload/pulmonary edema. TTE 04/22/22 with EF 60%, no WMA. Given IV Lasix x 1. Monitor and wean O2 as able. 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 BESSIE: on suspected CKD. Unclear baseline, as no recent labs on file. Cr 4 on 04/21/22. Suspect component of obstructive in setting of above. Renal US 04/22/22 with mild to moderate hydronephrosis of bilateral kidneys. Improving. Neph following. Hypernatremia: Na 154 on 04/20/22. Overall euvolemic on exam. 1/2 normal saline started 04/21/22 with improvement. Monitor. Neph following. BPH with urinary retention. S/p prostate biopsy 06/20/[address] Whitt. Continued Flomax. Urology following. Elevated Troponin: Troponin 36 on 04/20/22 with negative delta; EKG 04/21/22 with no acute ischemic changes. Denied chest pain. Suspect demand ischemia in setting of BESSIE, post-op. TTE as above. Leukocytosis: WBC 15 on 04/20/22. No signs/symptoms of infection. Suspect reactive. Improving. Monitor. Elevated blood pressure: SBP 170-180s post-op. Likely undiagnosed hypertension (has not seen PCP). Improving. Monitor and initiate anti-hypertensive as indicated. Neph following. Prediabetes: admit A1c 6.1. Outpatient follow-up. Prolonged QTc: EKG 04/21/22 with QTc 493. Optimize electrolytes. Monitor and avoid QT prolonging meds as able. Nicotine dependence: 2 packs of cigarettes a day. Refused patch. Cessation advised. Could have undiagnosed COPD. Continued duoneb PRN. Outpatient PFT recommended. Suspected ANGEL: recommend outpatient sleep study. Code status: Full DVT Prophylaxis: As per urology. Thank you for allowing us to participate in the care of your patient. For any questions, please call the number of the covering hospitalist listed under the treatment team in care connect. Current living situation: Home Expected Disposition: Home Estimated discharge date: TBD; suspect ~04/23-04/24 updated at bedside 04/22/22 Subjective: Records reviewed including labs, vital signs, imaging, and instructional design consultant recommendations and summarized by me in assessment and plan as above. Patient seen and examined at bedside. He reports feeling improved today. Has remained on 1L NC overnight, but denies dyspnea. He denies nausea, vomiting, LE swelling. I personally reviewed most recent EKG Which showed sinus rhythm with PACs, 77 bpm, QTc 493. Physical Exam: BP (!) 167/78 (BP Location: Right arm, Patient Position: Lying) Pulse 80 Temp 98.1 F (36.7 C) (Oral) Resp 16 Ht 5' 10 Wt 101.1 kg (222 lb 14.2 oz) SpO2 93% BMI 31.98 kg/m General: NAD Eyes: gaze conjugate ENT: neck supple Cardiovascular: Regular rate Respiratory: diminished bilaterally, unlabored on NC Gastrointestinal: Soft, non tender, bowel sounds present Genitourinary: negrete with red-tinged urine Musculoskeletal: No bony deformities Skin: warm, dry Neuro: Alert and oriented, answers questions appropriately, no focal deficits. Psych: Mood appropriate. Current Medications: potassium chloride SA 20 mEq Oral Q4H tamsulosin 0.4 mg Oral After evening meal Labs, Imaging and Studies reviewed: Results from last 7 days Lab Units 04/22/22 0551 04/20/22 2140 WBC K/mcL 13.00* 15.79* HGB g/dL 13.5 13.7 HCT % 40.8* 41.8 PLT K/mcL 248 298 Results from last 7 days Lab Units 04/22/22 0551 04/21/22 0958 04/20/22 2141 SODIUM mmol/L 146* 149* 154* POTASSIUM mmol/L 3.0* 4.4 3.9 CHLORIDE mmol/L 107 104 111* BICARB mmol/L 26 31 27 BUN mg/dL 23 28* 26* CREATININE mg/dL 2.54* 3.93* 4.00* EGFR mL/min/1.73 m2 28* 16* 16* GLUCOSE mg/dL 116* 123* 159* CALCIUM mg/dL 8.8 9.7 8.7 PHOSPHORUS mg/dL 3.8* -- -- Results from last 7 days Lab Units 04/21/22 0958 ALT U/L 9 AST U/L 10 ALK PHOS U/L 111 BILIRUBIN TOTAL mg/dL 0.7 Resident Progress Note Patient Name: Ginger Weldon : 1960 Admit Date: [id number] Assessment and Plan Patient is a 61 y.o. male with a PMHx of BPH, likely COPD and ANGEL. He presents to [facility] 04/20/22 for an elective cystoscopy, urethral dilation and prostate biopsy on 04/20 due to elevated PSA. With persistent hypoxia post-op, patient admitted for observation and workup of respiratory failure, BESSIE. Nephrology following for BESSIE on probable CKD, hypernatremia. BESSIE on probable CKD -Etiology likely chronic obstruction from BPH. No hypotension in setting of operation. Doubt prerenal etiology. -History of BPH with elevated PSA. S/p urethral dilation 04/20. Difficult weaning O2 post-op. Cr baseline suspected ~2-2.5. Admitted with Cr 4.0. Renal US with preliminary mild-moderate hydronephrosis b/l, no stones/masses/fluid collections identified. uOsm 220, Fatmata 75. -Continue negrete per Urology, strict I/Os. Avoid nephrotoxins. Daily RFP. Will follow additional day. Congestive heart failure -Suspect cardiorenal type 3. Possible ischemic cardiomyopathy given history of non-adherence, HTN, and significant smoking history. -Difficulty weaning O2 post-op 04/20. CXR with mild-moderate cardiomegaly, moderate pulmonary edema. BNP 2,000 (in setting of BESSIE). Clinically volume overload, improving. Non zero troponins, adynamic. -Await ECHO. Hypernatremia, improving -Unclear etiology. May be related to BESSIE and urinary retention. Denies free fluid restriction/decreased PO intake. -Improving with relief of urinary obstruction and IVF/increased PO intake. Urinary studies as above. -Encourage PO, monitor daily. All care and management plans will be discussed with the attending on service. Juan Zhu, Internal Medicine, PGY3 [phone] Chief Complaint Elective cystoscopy, urethral dilation Subjective Seen upon arrival from ECHO. NAEO. Feels well at this time. Good appetite, wants breakfast. No significant diarrhea, constipation. No abdominal pain, nausea. Denies dyspnea, angina. Patient Review of Systems Review of Systems Constitutional: Negative for chills, fatigue and fever. Respiratory: Positive for cough (occasional) and wheezing (occasional). Negative for shortness of breath. Cardiovascular: Negative for chest pain and leg swelling. Gastrointestinal: Negative for abdominal pain, constipation, diarrhea, nausea and vomiting. Genitourinary: Negative for difficulty urinating, frequency, penile discharge and penile pain. No problems with negrete Musculoskeletal: Negative for arthralgias and back pain. Neurological: Negative for dizziness, weakness, numbness and headaches. Physical Exam Vital Signs: BP (!) 167/78 (BP Location: Right arm, Patient Position: Lying) Pulse 80 Temp 98.1 F (36.7 C) (Oral) Resp 16 Ht 5' 10 Wt 101.1 kg (222 lb 14.2 oz) SpO2 93% BMI 31.98 kg/m Physical Exam Constitutional: General: He is not in acute distress. HENT: Head: Normocephalic and atraumatic. Mouth/Throat: Mouth: Mucous membranes are moist. Cardiovascular: Rate and Rhythm: Normal rate. Heart sounds: No murmur heard. Pulmonary: Effort: Pulmonary effort is normal. No respiratory distress. Breath sounds: No wheezing. Abdominal: General: Abdomen is flat. Tenderness: There is no abdominal tenderness. Musculoskeletal: Right lower leg: Edema (+1) present. Left lower leg: Edema (=1) present. Skin: General: Skin is warm. Findings: No rash. Neurological: General: No focal deficit present. Mental Status: He is alert and oriented to person, place, and time. Psychiatric: Mood and Affect: Mood normal. Behavior: Behavior normal. Additional Data I have independently reviewed the following: Active Medications, Radiology, Cardiology, Labs, and Notes Associated attestation - Josue, Sunshine Norris MD - 04/22/2022 1:10 PM EST I have seen the patient and discussed the case on rounds with the resident physician. I have reviewed the history, physical, and assessment/plan with the following comments. Continues to have good uop Creatinine better at 2.5 BESSIE on CKD stage IV. Unclear what his baseline creatinine is, but likely closer to mid 2 range. Now in nonoliguric BESSIE. BESSIE possibly from prolonged obstruction from BPH. He has been having these symptoms for at least the past year. May have component of ATN from chronic obstruction or possibly have a degree of CKD. His creatinine is down to 2.5. Decrease ivf rate of 1/2 ns to 50 cc/hr given his fluid overload. No acute indication for HD. Renal US after procedure shows B moderate hydro, may still resolve after 1-2 weeks. Hypernatremia. Have encouraged him to increase his water intake. Above fluids should help. HTN. He likely has had HTN for several years. On PRN meds. BP variable Start on amlodipine 5 mg daily BPH. S/p cystoscopy with urethral dilation and placement of negrete. Has a nodular prostate- suspicious for prostate Ca. Biopsy was taken. Hypokalemia- replete K aggressively. Sunshine Salas MD [facility] Please use Secure Chat to contact or Physician Directory for cell phone [phone] (after 5pm/weekends) Anesthesia Progress Note 1 Day Post-Op Procedure(s): CYSTOSCOPY, URETHERAL DILATION, PROSTATE ULTRASOUND AND PROSTATE BIOPSY NEEDLE BIOPSY PROSTATE Assessment / Plan Comment: In no acute distress. Awake and oriented x 3. DEVEN x 4. Denies post-op nausea, vomiting, or headache. No anesthesia complications noted. Temp: [36.3 C-37.2 C] 36.7 C Heart Rate: [60-91] 72 Resp: [15-25] 16 BP: (133-189)/(68-111) 156/83 SpO2: [82 %-99 %] 88 % UROLOGY POSTOPERATIVE PROGRESS NOTE Patient Name: Ginger Weldon MR #: [id number] DATE: 04/21/2022 ASSESSMENT / PLAN: Elevated PSA BPH with urinary retention -Patient is postop day 1 from cystoscopy urethral dilation ultrasound-guided prostate biopsy with Dr. Whitt -Patient postoperative course complicated by the increased need for oxygen unable to wean -Hospital medicine evaluating and ordering new studies to determine cause, possible fluid overload/CHF they have agreed to take over as primary this evening -Negrete catheter draining well some nisha sediment at bottom of Negrete catheter bag otherwise yellow urine draining -Maintain Negrete catheter for now, family states Dr. Whitt advised him to maintain until Saturday, our office to arrange outpatient trial of void -Final plan pending Dr. Lux's attestation Thank you very much for allowing me to participate in your patient care. If you have any further questions please don't hesitate to call. Cathy Puckett CNP [facility] Office: POST-OP DAY: 1 SUBJECTIVE: Ginger Weldon is a 61 y.o. male who underwent a prostate biopsy and urethral dilation on 04/20/22. The patient's postoperative course was complicated due to increased oxygen needs and nursing unable to wean patient. Hospital medicine was consulted and patient was found to require a cardiac echo, read still pending. Discussed with patient and family this morning wants medicine team establishes possible cause, fluid overload, possible congestive heart failure, unclear etiology, they will be able to give him more information regarding discharge. Discussed with patient and family in regards to the urology standpoint, he is doing well postoperatively with Negrete catheter in place. Per family was told by Dr. Whitt Negrete catheter will stay in place until Saturday, will have our office arrange follow-up care for trial of void. He has no urologic concerns at this time, no discomfort from Negrete catheter, is in agreement with the current plan although disappointed that he needs to remain in the hospital for additional work-up to be completed. OBJECTIVE: BP (!) 156/83 Pulse 72 Temp 98.1 F (36.7 C) (Oral) Resp 16 Ht 5' 10 Wt 101.1 kg (222 lb 14.2 oz) SpO2 91% BMI 31.98 kg/m General appearance: Alert, cooperative, and no distress Head: Normocephalic, without obvious abnormality, atraumatic Eyes: Conjunctivae/corneas clear Ears: Hearing grossly intact Neck: Supple, symmetrical, trachea midline Back: No CVA tenderness noted bilaterally Lungs: Effort normal, no respiratory distress Heart: Regular rate Abdomen: Soft, nontender, nondistended : Negrete catheter draining clear yellow urine to gravity Extremities: No edema or cyanosis, normal ROM Skin: Warm, dry Neurologic: Grossly normal Psych: Mood appropriate Temp: [97.4 F (36.3 C)-98.9 F (37.2 C)] 98.1 F (36.7 C) Heart Rate: [60-91] 72 Resp: [15-25] 16 BP: (133-189)/(68-111) 156/83 Fluid Management (24hrs): Intake/Output last 3 shifts: I/O last 3 completed shifts: In: - Out: 5825 [Urine:5825] Lab Results: Results from last 7 days Lab Units 04/20/22 2141 SODIUM mmol/L 154* POTASSIUM mmol/L 3.9 CHLORIDE mmol/L 111* BUN mg/dL 26* CREATININE mg/dL 4.00* GLUCOSE mg/dL 159* CALCIUM mg/dL 8.7 Results from last 7 days Lab Units 04/20/22 2140 WBC K/mcL 15.79* HGB g/dL 13.7 HCT % 41.8 PLT K/mcL 298 Urinalysis: Lab Results Component Value Date COLORUR Nisha (A) 04/21/2022 CLARITYUR Clear 04/21/2022 SPECGRAV 1.006 04/21/2022 PHUR 6.0 04/21/2022 PROTUR 100 (A) 04/21/2022 GLUCUR Negative 04/21/2022 KETONESU Negative 04/11/2022 BILIUR Negative 04/21/2022 BLOODUR Moderate (A) 04/21/2022 NITRITEUR Negative 04/21/2022 LEUKESTUR Trace (A) 04/21/2022 WBCUR 9 (H) 04/21/2022 RBCUR 139 (H) 04/21/2022 BACTUR None Seen 04/21/2022 Urine Culture: No results found for: CULTUREURN Associated attestation - Ila Lux MD - 04/21/2022 2:45 PM EDT I have personally reviewed all pertinent labs, physicians, notes in this patient's chart. I have reviewed the note and concur with the documentation of Ginger Weldon. [facility] Inpatient Progress Note 04/21/2022 Ginger Weldon 1960 [id number] Assessment/Plan: Ginger Weldon is a 61 y.o. male with a history of BPH who presented to [facility] 04/20/2022 for elective cystoscopy, urethral dilation and prostate biopsy due to elevated PSA by Dr. Whitt (urology). Course complicated by post-op respiratory failure for which patient was admitted. [facility] consulted for medical management. Acute hypoxic respiratory failure: multifactorial related to obesity hypoventilation syndrome, undiagnosed sleep apnea, COPD and CHF. BNP 2k, Chest x-ray 04/20/22 with concerns of fluid overload/pulmonary edema. Given IV Lasix x 1. Monitor and wean O2 as able. 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 Echo pending. BESSIE: unclear baseline, as no recent labs on file. Cr 4 on 04/21/22. Suspect component of obstructive in setting of above. Neph following. Renal US pending. Hypernatremia: Na 154 on 04/20/22. Overall euvolemic on exam. 1/ normal saline started 04/21/22. Monitor. Neph following. BPH with urinary retention. S/p prostate biopsy 06/20/[address] Whitt. Continued Flomax. Urology primary. Elevated Troponin: Troponin 36 on 04/20/22 with negative delta. Denied chest pain. Suspect demand ischemia in setting of BESSIE. EKG pending. Leukocytosis: WBC 15 on 04/20/22. No signs/symptoms of infection. Suspect reactive. Monitor. Elevated blood pressure: SBP 170-180s post-op. Likely undiagnosed hypertension (has not seen PCP). Improving. Monitor and initiate anti-hypertensive as indicated. Neph following. Prediabetes: admit A1c 6.1. Outpatient follow-up. Nicotine dependence: 2 packs of cigarettes a day. Refused patch. Cessation advised. Could have undiagnosed COPD. Continued duoneb PRN. Outpatient PFT recommended. Suspected ANGEL: recommend outpatient sleep study. Code status: Full DVT Prophylaxis: As per urology. Thank you for allowing us to participate in the care of your patient. For any questions, please call the number of the covering hospitalist listed under the treatment team in care connect. Current living situation: Home Expected Disposition: Home Estimated discharge date: TBD; likely > 2 days Subjective: Patient new to me. Records reviewed including labs, vital signs, imaging, and instructional design consultant recommendations and summarized by me in assessment and plan as above. Patient seen and examined at bedside. He reports some mild discomfort in pubic region, but otherwise no pain. Denies nausea, vomiting. States his breathing feels a lot better. Denies nausea, vomiting. Denies alcohol use, smokes 2 PPD. Discussed with Cathy Puckett CNP Urology. Plan for [facility] to assume care. Physical Exam: BP (!) 141/68 Pulse 60 Temp 98.1 F (36.7 C) (Oral) Resp 16 Ht 5' 10 Wt 101.1 kg (222 lb 14.2 oz) SpO2 93% BMI 31.98 kg/m General: NAD Eyes: gaze conjugate ENT: neck supple Cardiovascular: Regular rate Respiratory: diminished bilaterally, unlabored on NC Gastrointestinal: Soft, non tender, bowel sounds present Genitourinary: negrete with red-tinged urine Musculoskeletal: No bony deformities Skin: warm, dry Neuro: Alert and oriented, answers questions appropriately, no focal deficits. Psych: Mood appropriate. Current Medications: lispro insulin 0-15 Units Subcutaneous at bedtime insulin lispro 0-30 Units Subcutaneous TID AC tamsulosin 0.4 mg Oral After evening meal Labs, Imaging and Studies reviewed: Results from last 7 days Lab Units 04/20/22 2140 WBC K/mcL 15.79* HGB g/dL 13.7 HCT % 41.8 PLT K/mcL 298 Results from last 7 days Lab Units 04/20/22 2141 SODIUM mmol/L 154* POTASSIUM mmol/L 3.9 CHLORIDE mmol/L 111* BICARB mmol/L 27 BUN mg/dL 26* CREATININE mg/dL 4.00* EGFR mL/min/1.73 m2 16* GLUCOSE mg/dL 159* CALCIUM mg/dL 8.7 documented in this encounter [facility] 04-21-2022 Consult note Associated Order (s): IP CONSULT TO NEPHROLOGY Resident Consult Note Patient Name: Ginger Weldon : 1960 Admit Date: [id number] Assessment and Plan Patient is a 61 y.o. male with a past medical history significant for BPH, undx ANGEL, COPD, CHF non compliant with PCP who presented to [facility] 04/20/2022 who presents for elective cystoscopy, urethral dilation and prostate biopsy due to elevated PSA on arrival found to be hypoxic w/ CXR significant for fluid overload/CHF/Pulmnonary edema, overnight Cr worsening, Nephrology consulted for BESSIE, elevated BNP, fluid overload. BESSIE - Etiology unclear, likely obstrucitve in setting of recent procedure,concern for chronic hydronephrosis in the setting of obstruction - CXR shows bilateral opacities Rt>Lt - Recent cystoscopy 04/20/22, with prostate biopsy - Required 4 doses of hydralazine 5 mg during procedure and post op required 4 doses of labetalol 5mg for HTN - Ordered UA, Urine sodium, Urine creatinine, Renal US ordered, Encourage PO intake, avoid nephrotoxic meds, will follow Hypernatremia - Etiology unclear, conern for hypertonic hypernatremia, unsure of chronicity, was hypernatremic on admit - S/p cystoscopy 5.7 L UOP, with only 50 mL being urine - On exam pt is euvolemic - Received 40mg IV lasix once - Received 75mL/hr LR for 6 hrs over last 24 hrs - Ordered serum osms, urine osms Chief Complaint: Obstructive uropathy History of Present Illness Patient is a 61 y.o. male with a past medical history significant for BPH, undx ANGEL, COPD, CHF non compliant with PCP who presented to [facility] 04/20/2022 who presents for elective cystoscopy, urethral dilation and prostate biopsy due to elevated PSA on arrival found to be hypoxic w/ CXR significant for fluid overload/CHF/Pulmnonary edema, overnight Cr worsening, Nephrology consulted for BESSIE, elevated BNP, fluid overload. Pt endorses increase SOB s/p cystoscopy. Pt states he is not on oxygen at home but is requiring 2 L NC currently. Pt denies N/V or CP. Able to eat breakfast without becoming SOB. Pt is at bedside and states pt has been dealing with this obstruction for approximately 3-4 months Past Medical/ Surgical/ Social/ Family History Past Medical History: Diagnosis Date BESSIE (acute kidney injury) (HCC) BPH (benign prostatic hyperplasia) Elevated blood pressure reading with diagnosis of hypertension Nicotine dependence History reviewed. No pertinent surgical history. Family History Problem Relation Age of Onset Diabetes Mother No Known Problems Father Melanoma Brother Coronary artery disease Maternal Uncle Social History Socioeconomic History Marital status: Tobacco Use Smoking status: Every Day Packs/day: 2.00 Types: Cigarettes Start date: 03/05/1990 Smokeless tobacco: Never Vaping Use Vaping Use: Never used Substance and Sexual Activity Alcohol use: Not Currently Drug use: Never Patient Allergies I have reviewed the patient's allergies. Patient has no known allergies. Patient Review of Systems Review of Systems Constitutional: Negative for activity change, chills, fatigue and fever. Respiratory: Positive for shortness of breath. Negative for cough, chest tightness and wheezing. Cardiovascular: Negative for chest pain, palpitations and leg swelling. Gastrointestinal: Positive for diarrhea. Negative for abdominal distention, abdominal pain and constipation. Genitourinary: Positive for decreased urine volume and difficulty urinating. Negative for dysuria. Skin: Negative for color change and rash. Physical Exam Vital Signs: BP (!) 141/68 Pulse 60 Temp 98.1 F (36.7 C) (Oral) Resp 16 Ht 5' 10 Wt 101.1 kg (222 lb 14.2 oz) SpO2 93% BMI 31.98 kg/m Physical Exam Constitutional: General: He is not in acute distress. Appearance: Normal appearance. He is normal weight. HENT: Head: Comments: Large irregular, asymmetric, raised nevus on Lt cheek Nose: Nose normal. Mouth/Throat: Mouth: Mucous membranes are moist. Pharynx: Oropharynx is clear. Eyes: Extraocular Movements: Extraocular movements intact. Conjunctiva/sclera: Conjunctivae normal. Cardiovascular: Rate and Rhythm: Normal rate and regular rhythm. Pulses: Normal pulses. Heart sounds: Normal heart sounds. Pulmonary: Effort: Pulmonary effort is normal. Breath sounds: Normal breath sounds. No rales. Abdominal: General: Abdomen is flat. Bowel sounds are normal. There is no distension. Palpations: Abdomen is soft. Tenderness: There is no abdominal tenderness. There is no right CVA tenderness, left CVA tenderness or guarding. Musculoskeletal: Right lower leg: No edema. Left lower leg: No edema. Skin: General: Skin is warm and dry. Neurological: Mental Status: He is alert and oriented to person, place, and time. Psychiatric: Mood and Affect: Mood normal. Behavior: Behavior normal. Thought Content: Thought content normal. Judgment: Judgment normal. Additional Data - Labs/ Radiology/ etc. Recent Labs 04/20/222140 NA 154* K 3.9 CL 111* BICARB 27 BUN 26* CREATININE 4.00* GLUCOSE 159* Recent Labs 04/20/222139 WBC 15.79* HGB 13.7 HCT 41.8 PLT 298 No results found for: ALT, AST, GGT, ALKPHOS, BILITOT, ALBUMIN No results for input(s): INR in the last 72 hours. Lab Results Component Value Date HGBA1C 6.1 (H) 04/20/2022 Patient Home Medications Active Home Medications Medication Sig Take Last Dose On Take Morning of Surgery Comment(s) ciprofloxacin HCl (CIPRO) 500 MG tablet Take 1 (one) tablet (500 mg total) by mouth 2 (two) times a day for 3 days . tamsulosin (FLOMAX) 0.4 mg capsule Take 1 (one) capsule (0.4 mg total) by mouth every evening . traMADoL (ULTRAM) 50 mg tablet Take 1 (one) tablet (50 mg total) by mouth every 4 (four) hours as needed for pain (Days supply per fill: 3) . Associated attestation - Sunshine Salas MD - 04/21/2022 1:13 PM EDT I have seen the patient and discussed the case on rounds with the resident physician. I have reviewed the history, physical, and assessment/plan with the following comments. Pt oh 61 yom with h/o BPH, ANGEL, COPD and CHF who presents for elective cystoscopy. He had a creatinine of 2.5 on 04/11/22. He did not have labs prior since he had not seen a physician on a regular basis. He now presents with a creatinine of 4. He is s/p cystoscopy, urethral dilation and prostate biopsy on 04/20. His bp did drop from the 200s to 110s-120s and continues to be variable. BESSIE on CKD stage IV. Unclear what his baseline creatinine is, but likely closer to mid 2 range. Now in nonoliguric BESSIE. BESSIE possibly from prolonged obstruction from BPH. He has been having these symptoms for at least the past year. Given that his creatinine is still 3.9 today, he may be in ATN from prolonged obstruction. Also possibly in ATN from hemodynamic changes. Start on 1/2 ns at 100 cc/hr. No acute indication for HD. Hypernatremia. Have encouraged him to increase his water intake. Above fluids should help. HTN. He likely has had HTN for several years. On PRN meds. BP variable, but improving. May need to start standing amlodipine or low dose coreg. BPH. S/p cystoscopy with urethral dilation and placement of negrete. Has a nodular prostate- suspicious for prostate Ca. Biopsy was taken. Sunshine Salas MD [facility] Please use Secure Chat to contact or Physician Directory for cell phone [phone] (after 5pm/weekends) [facility] Work Phone: 04-21-2022 Consult note Associated Order (s): IP CONSULT TO CARE MANAGEMENT Care Management Consult Note Date: 04/21/2022 Time: 7:16 AM Patient Name: Ginger Weldon Date of : 1960 Reason for Consult: Discharge Needs Pcp information placed on AVS Assessment and Background Information: Living Arrangements: Spouse/significant other Support Systems: Spouse/significant other Assistance Needed: NO Type of Residence: Private residence Prior to Admission Home Care Services: No Courtney LOUISN,RN,[facility] worm picker Weekend -Contingent Utilization Management Secure Chat for non urgent issuse Vocera for urgent issues [facility] 04-21-2022 Note Formatting of this n ote might be different from the original. GINGER WELDON SKYE [id number] 1960 DATE 04/20/2022 OPERATIVE REPORT SURGEON FLORIAN WHITT MD PREOPERATIVE DIAGNOSIS Elevated PSA and incomplete bladder emptying with urethral obstruction. POSTOPERATIVE DIAGNOSIS Elevated PSA and incomplete bladder emptying with urethral obstruction. ANESTHESIA General. ESTIMATED BLOOD LOSS Minimal. COMPLICATIONS None. INDICATIONS AND CONSENT This is a 61-year-old male who was noted to have a significantly elevated PSA recently to 27. Digital rectal exam is consistent with a very hard, nodular prostate suspicious for prostate cancer. He has also been having difficulty urinating and incomplete bladder emptying. His creatinine was noted to be slightly elevated at 2. An attempt was made to do a flexible cystoscopy in the office. However, due to the rigidity and obstruction through the prostate, the scope would not pass. He now presents for the above-mentioned procedure. He understands the risks and has given informed consent. DESCRIPTION OF PROCEDURE The patient was brought to the operative suite and placed on the table in the supine position. He was placed under general anesthetic. He was then placed into the left lateral decubitus position with knees tucked toward chest. A time-out was performed confirming identity, diagnosis, and planned surgical procedure. Next, the ultrasound probe was lubricated and passed into the rectum. The prostate was imaged in 2 planes. It was noted to be diffusely irregular with a somewhat irregular-appearing capsule and some enlargement of the seminal vesicles. Prostate volume measured 25 cc. Local anesthetic was performed by injecting a 1% lidocaine solution into the elizabeth prostatic tissues near the junction of the seminal vesicles to the base of the prostate bilaterally. Next, a total of 12 biopsy cores were obtained using a biopsy needle. Two cores each were obtained from the apex, mid, and base bilaterally and placed in separately labeled containers that were sent to Pathology for inspection. Following this, the probe was removed. He was replaced to the supine position and then placed into the dorsal lithotomy position in the [facility]. He was prepped and draped in the usual sterile fashion. A rigid cystoscope was assembled. The 20- Stateless rigid cystoscope was lubricated and passed into the urethra. The penile urethra and bulbous urethra appeared unremarkable. It was very tight at the membranous urethra, and the scope would not pass. I was able to manipulate a guidewire through this area and through the prostate and into the bladder without resistance. The scope was removed. Next, the sequential urethral dilator set was obtained and used to dilate the urethra sequentially up to 20-Stateless. Following this, the rigid scope was able to be passed through the prostate and through that area in the membranous urethra and into the bladder. The bladder was mildly trabeculated. The ureteral orifices appeared normal. There were no tumors, stones, or lesions noted within the bladder. The scope was removed, and then an 18-Stateless [place] tip catheter was placed over the guidewire and into the bladder. The balloon was inflated with 10 cc of saline and this was left to bag drainage. This concluded the procedure. He tolerated this well and was taken in good condition to the postanesthesia care unit. FLORIAN WHITT MD D 04/20/2022 16:30 [id number] T 04/21/2022 02:47 ESW/MODL [facility] 04-21-2022 Note Formatting of this n ote might be different from the original. BNP significantly elevated 2010. Signs of fluid overload on imaging. Creatinine significantly elevated at 4. Nephrology consulted [facility] 04-20-2022 Consult note Associated Order (s): IP CONSULT TO HOSPITALIST [facility] Consult Note 04/20/22 Ginger Weldon 1960 [id number] Assessment/Plan: Ginger Weldon is a 61 y.o. male with a history of BPH, Not compliant with PCP who presented to [facility] 04/20/2022 for elective cystoscopy, urethral dilation and prostate biopsy due to elevated PSA. Still requiring oxygen.. Urology recommended admission for observation. [facility] is consulted for medical management due to difficulty weaning of oxygen postop. Acute hypoxic respiratory failure: Multifactorial related to obesity, hypoventilation syndrome, undiagnosed sleep apnea, COPD and CHF. Chest x-ray with concerns of fluid overload/CHF/pulmonary edema. Echocardiogram, CBC, BMP, COVID, BNP, pro calcitonin, D dimer troponin pending. Lasix x1. May need further dosing based on response. Wean oxygen as able. Will need sleep study as outpatient. 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 If above work-up is unremarkable, respiratory distress continues, will order CTA to rule out PE. BPH with urinary retention: Continued Flomax. Elevated PSA. S/p prostate biopsy 06/20/[address] Whitt. Urology primary. Elevated blood pressure: Uncontrolled. Likely undiagnosed hypertension. Has not seen PCP for a while. Previously blood pressure has been high at different work related checkups. Continued hydralazine/labetalol. May need oral; antihypertensive at discharge based on BP trend Nicotine dependence: Smokes 2 packs of cigarettes a day. Refused patch. Cessation advised. Could have undiagnosed COPD. Continued duoneb PRN. Outpatient PFT recommended. Code status: Full DVT Prophylaxis: As per urology. Thank you for allowing us to participate in the care of your patient. For any questions, please call the number of the covering hospitalist listed under the treatment team in care [facility]. Current living situation: Home Expected Disposition: Home Estimated discharge date: As per primary-likely when weaned off oxygen, BP stable and post f/u of workup Chief Complaint / Reason for Consult: Medical management due to difficulty weaning off oxygen postop. History of Present Illness: 61-year-old male with past medical history of BPH with urinary retention, came for elective cystoscopy, urethral dilation and prostate biopsy. His PSA was elevated-27.10-04/11/2022. It was difficult to wean him off oxygen.. Urology recommended admission for observation. Seen patient at bedside. Still on nonrebreather. 8 L. 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 No prior history of blood clots. Has not seen PCP for a while. Not vaccinated for COVID. Not been diagnosed with hypertension, diabetes but has not seen PCP for a while. At prior occupational health checkups from work, he was told that his blood pressure is high. He does not take any hypertensive medications at home. He also snores. Has not gotten a sleep study done. Smokes 2 packs of cigarettes a day. Not diagnosed with COPD prior. No leg swelling. No prior Hx of blood clot. A1c, lipid panel ordered. ROS: 10 systems were reviewed and negative, except as noted above. Past Medical, Surgical, Social, Family History: Reviewed Past Medical History: Diagnosis Date BESSIE (acute kidney injury) (HCC) BPH (benign prostatic hyperplasia) Elevated blood pressure reading with diagnosis of hypertension Nicotine dependence History reviewed. No pertinent surgical history. Social History Socioeconomic History Marital status: Tobacco Use Smoking status: Every Day Packs/day: 2.00 Types: Cigarettes Start date: 03/05/1990 Smokeless tobacco: Never Vaping Use Vaping Use: Never used Substance and Sexual Activity Alcohol use: Not Currently Drug use: Never Family History Problem Relation Age of Onset Diabetes Mother No Known Problems Father Melanoma Brother Coronary artery disease Maternal Uncle Current Medications: Medication list reviewed with patient. Please see MAR for full details. Physical Exam: BP (!) 172/89 (BP Location: Left arm, Patient Position: Lying) Pulse 82 Temp 98.6 F (37 C) (Temporal) Resp (!) 22 Ht 5' 10 Wt 101.1 kg (222 lb 14.2 oz) SpO2 (!) 89% BMI 31.98 kg/m General: anxious on non re breather Eyes: EOMI ENT: neck supple Cardiovascular: Regular rate. Respiratory: crackles in lung schmdit bilaterally, middle schmidt and bases. Wheezing in upper lung fiends but seems to be transmitted Gastrointestinal: Soft, non tender Genitourinary: no suprapubic tenderness Musculoskeletal: +1 edema Skin: warm, dry Neuro: Alert. No focal deficit Psych: Mood appropriate. Labs, Imaging, and Studies reviewed: Invalid input(s): MAG JACKIE [facility] Work Phone: 04-20-2022 Hospital Discharge instructions Catherine Bernal RN - 04/20/2022 4:59 PM EDT Courtney Alvarenga RN - 04/21/2022 7:16 AM EDT RESOURCES FOR PRIMARY CARE Our records indicate that you do not follow with a Primary Care Provider (PCP). Please call or visit the following to assist you in establishing with a PCP: The Patient Service Center is available (Saturday-Saturday, 7:00am-5:30pm) to connect you with a primary care provider. Please call [phone] to connect with an agent who can help you find a provider who meets your needs. [facility] Referral Service: [phone], (use option 1) or visit [email or web address] [facility]: [email or web address] [facility] Physician Referral: [phone], or visit [email or web address] The following attachments cannot be sent through Care Everywhere.Renal Failure: Acute (Ugandan)Hypertension (Ugandan)Low Sodium Diet (Ugandan)Oxygen Therapy (Ugandan)documented in this encounter [facility] 04-20-2022 Note Formatting of this n ote is different from the original. Brief Post Operative Note Patient Name: Ginger Weldon : 1960 (61 y.o.) Date of Service: 04/20/2022 [facility]: [id number] Procedure(s): CYSTOSCOPY, URETHERAL DILATION, PROSTATE ULTRASOUND AND PROSTATE BIOPSY NEEDLE BIOPSY PROSTATE Pre-Operative Diagnoses: * Elevated PSA [R97.20] Benign prostatic hyperplasia with urinary retention [N40.1, R33.8] Post-Operative Diagnoses: * Same as Pre-Op Diagnosis * Elevated PSA [R97.20] * Benign prostatic hyperplasia with urinary retention [N40.1, R33.8] Surgeon(s) and Role: * Florian Whitt MD - Primary Anesthesiologist: Ran Kaur MD Editor Map: Froy Maddox RN Scrub Person: Geoffrey Espinosa RN Operative findings: see dictated number Intra and immediate post-operative complications: none Type of anesthesia used: General Estimated blood loss: 0 mL Estimated urine output: Refer to surgical log Specimen(s): ID Type Source Tests Collected by Time Destination A : Tissue Prostate, Right [place] TISSUE EXAM Florian Whitt MD 04/20/20221625 B : Tissue Prostate, Right Mid TISSUE EXAM Florian Whitt MD 04/20/2022 1627 C : Tissue Prostate, Right Base TISSUE EXAM Florian Whitt MD 04/20/2022 1627 D : Tissue Prostate, Left [place] TISSUE EXAM Florian Whitt MD 04/20/2022 1628 E : Tissue Prostate, Left Mid TISSUE EXAM Florian Whitt MD 04/20/2022 1628 F : Tissue Prostate, Left Base TISSUE EXAM Florian Whitt MD 04/20/2022 1628 Implant(s): * No implants in log * Drain(s): * No LDAs found * Wound(s): * No LDAs found * Florian Whitt MD 04/20/2022 4:32 PM [facility] 04-20-2022 Attending History and physical note INTERVAL HISTORY AND PHYSICAL Patient Name: Ginger Weldon Admit Date: [id number] MR #: [id number] : 1960 The H&P has been reviewed and the patient has been examined. I concur with the findings of the H&P. There are no significant changes. It is appropriate to proceed with the planned procedure. Florian Whitt MD 04/20/2022 1:41 PM Source Note - Camila Flaherty, DEBORA - 04/19/2022 2:27 PM EDT Assessment and Plan Benign prostatic hyperplasia with urinary retention 04/20/2022 1320 Scheduled Florian Whitt MD CYSTOSCOPY, URETHERAL DILATION, PROSTATE ULTRASOUND AND PROSTATE BIOPSY NEEDLE BIOPSY PROSTATE Chronic symptoms of BPH and retention. PSA is elevated. BESSIE (acute kidney injury) (HCC) Lab Results Component Value Date CREATININE 2.50 (H) 04/11/2022 BUN 19 04/11/2022 NA 148 (H) 04/11/2022 K 3.9 04/11/2022 CL 111 (H) 04/11/2022 BICARB 32 04/11/2022 Creatinine elevated. GFR 28. Negrete catheter was attempted in urology office unsuccessfully. Patient states plan is to place in OR. Elevated blood-pressure reading, without diagnosis of hypertension BP Readings from Last 3 Encounters: 04/19/22 (!) 183/82 04/11/22 (!) 180/85 03/05/19 127/79 Blood pressure is elevated. Ideally this would be optimized prior to anesthesia, however, with surgery being tomorrow we will not have time to optimize preoperatively. This surgery is urgent with elevated PSA, prostate biopsy needed, and urinary retention with acute kidney injury, this should would not postpone surgery. Instructed patient and to monitor BP at home postoperatively, if remains elevated follow up with PCP. Suspected sleep apnea PREOPERATIVE SLEEP APNEA RISK ASSESSMENT SCORE IS 3/3 indicating high risk factors. Patient would like to follow up with PCP postoperatively in regards to sleep medicine referral. Close monitoring per [place] protocol perioperatively. Nicotine dependence Current every day smoker. Cessation advised. I suspect that he has some degree of COPD. 2ppd. PO 92-97%. He describes some shortness of breath with activity. Instructed patient to follow up with PCP. Preop examination Patient presents for preoperative medical risk stratification prior to surgery tomorrow. He denies known chronic conditions including cardiovascular or cerebrovascular conditions. Denies any medical history and has never had surgery. He describes a greater than 4 mets without symptoms of chest pain. He does describe some shortness of breath with activity; I suspect some degree of COPD as he is a current every day 1 1/2 to 2 ppd smoker. His blood pressure is elevated, no previous diagnosis of hypertension. Ideally blood pressure would be better controled prior to surgery, however, surgery is scheduled for tomorrow and is an urgent surgery that should not be postponed. Preoperative sleep apnea risk assessment score is Is 3/3, indicating high risk factors. He should be monitored closely per [place] protocol perioperatively. Apfel score is 1, suggesting mild risk for post operative nausea and vomiting. He has not had anesthesia in the past, denies family history of complications. Chief Complaint Patient presents with Pre-operative Medical Risk Stratification History of Present Illness Ginger Weldon is a 61 y.o. male who presents for preoperative medical risk stratification consult. He is scheduled for Procedure(s): CYSTOSCOPY, URETHERAL DILATION, PROSTATE ULTRASOUND AND PROSTATE BIOPSY NEEDLE BIOPSY PROSTATE with Dr. Whitt on 04/20/2022. He denies any known chronic conditions including cardiovascular or cerebrovascular conditions. He states he does not go to the PCP frequently, it has been a few years. I suspect that he has some degree of COPD as he is an every day 1 1/2 to 2 ppd smoker. He is also high risk for obstructive sleep apnea per preoperative sleep apnea assessment. His blood pressure is elevated, unable to optimize preoperatively as surgery is tomorrow and is time sensitive with his BESSIE. Instructed patient to monitor BP at home and follow up with PCP regarding the previously mentioned suspected medical conditions. He has not had anesthesia in the past and denies family history of complications. Please see below regarding status of active medical conditions and assessment and plan regarding details of preoperative medical risk stratification. Past Medical History: Diagnosis Date BESSIE (acute kidney injury) (HCC) BPH (benign prostatic hyperplasia) Elevated blood pressure reading with diagnosis of hypertension Nicotine dependence No past medical history pertinent negatives.History reviewed. No pertinent surgical history. Social History Tobacco Use Smoking status: Every Day Packs/day: 2.00 Types: Cigarettes Start date: 03/05/1990 Smokeless tobacco: Never Substance Use Topics Alcohol use: Not Currently Family History Problem Relation Age of Onset Diabetes Mother No Known Problems Father Melanoma Brother Coronary artery disease Maternal Uncle Prior to Admission medications taking for visit date 04/19/22 Medication Sig Taking? Discontinued? acetaminophen (TYLENOL) 325 MG tablet Take 2 (two) tablets (650 mg total) by mouth every 6 (six) hours as needed for pain . Yes tamsulosin (FLOMAX) 0.4 mg capsule Take 1 (one) capsule (0.4 mg total) by mouth Daily With Food . Patient taking differently: Take 1 (one) capsule (0.4 mg total) by mouth every evening . Yes No Known Allergies Review of Systems Constitution: (negative) HENT: abnormal dentition (upper and lower dentures) Eyes: (negative) Respiratory: shortness of breath Cardiovascular: (negative) no chest pain, no leg swelling, no palpitations - Exercise capacity: Greater than 4 METS Gastrointestinal: abdominal pain, constipation, nausea Genitourinary: - Retention; frequency Musculoskeletal: (negative) - Low back Skin: (negative) Neurological: (negative) Hematological: (negative) Physical Exam BP (!) 183/82 (BP Location: Left arm, Patient Position: Sitting) Pulse 71 Ht 5' 10 Wt 102.1 kg (225 lb) SpO2 92% BMI 32.28 kg/m Constitutional: He is oriented to person, place, and time. He appears well developed and well-nourished. Skin: Skin is warm and dry. Eyes: Conjunctivae are normal. HENT: Head: Normocephalic and atraumatic. Neck: Normal range of motion. Cardiovascular: Normal rate, regular rhythm and normal heart sounds. Pulmonary/Chest: Effort normal and breath sounds normal. Abdominal: Soft. Musculoskeletal: Normal range of motion. Neurological: He is alert and oriented to person, place, and time. He has normal strength. Psychiatric: He has a normal mood and affect. His behavior is normal. Cognition and memory are normal. Data Preprocedure Sleep Apnea Assessment - High Risk 3/3 Sleep Apnea in the patient's Active Problem List or Medical History: no 1. History of apparent airway obstruction during sleep: (1 point for this category) Do you snore frequently, or snore loud enough to be heard through a closed door?: yes Do you awaken from sleep with a choking sensation or have periods during sleep when someone has observed you pausing between breaths?: yes 2. Somnolence of the patient: (1 point for this category) Do you find yourself frequently sleepy despite adequate hours of sleep the night before?: yes Do you fall asleep easily while: watching TV, reading, riding in or driving a car?: no 3. Predisposing physician characteristics: (1 point for this category, 2 points if the BMI ? 40) BMI (Calculated): 32.3 Neck Circumference (inches): 17.2 inches Recent Results (from the past 1825 days) XR ELBOW RIGHT 3+ VIEWS (STANDARD) 07/31/2021 (Final) Status: Normal Narrative EXAMINATION: XR ELBOW RIGHT 3+ VIEWS (STANDARD) 07/31/2021 9:58 am HISTORY: ORDERING SYSTEM PROVIDED HISTORY: Pain, TECHNOLOGIST PROVIDED HISTORY: Injury/Trauma Reason for exam: right elbow pain x 2 months. Cancer History: u Surgery, RadiationHistory: u Encounter Type: Initial Mechanism of injury: Started hurting after using a leaf blower ORDERING SYSTEM PROVIDED DIAGNOSIS CODES: R52 Pain COMPARISON: None. FINDINGS: Three views were done of the right elbow. The radial head and neck and supracondylar region the humerus are unremarkable. Proximal ulna is unremarkable. There is a slight to mild broad-based olecranon spur noted. Supracondylar region the humerus is unremarkable. No joint effusion or soft tissue mass or obvious foreign body is noted. Bone density is normal. Impression 1. Nonacute plain films of the right elbow. 2. Slight to mild broad-base olecranon spur noted. Please correlate clinically. Workstation ID: [id number] [facility] 04-20-2022 History and physical note INTERVAL HISTORY AND PHYSICAL Patient Name: Ginger Weldon Admit Date: [id number] MR #: [id number] : 1960 The H&P has been reviewed and the patient has been examined. I concur with the findings of the H&P. There are no significant changes. It is appropriate to proceed with the planned procedure. Florian Whitt MD 04/20/2022 1:41 PM Source Note - Camila Flaherty CNP - 04/19/2022 2:27 PM EDT Assessment and Plan Benign prostatic hyperplasia with urinary retention 04/20/2022 1320 Scheduled Florian Whitt MD CYSTOSCOPY, URETHERAL DILATION, PROSTATE ULTRASOUND AND PROSTATE BIOPSY NEEDLE BIOPSY PROSTATE Chronic symptoms of BPH and retention. PSA is elevated. BESSIE (acute kidney injury) (HCC) Lab Results Component Value Date CREATININE 2.50 (H) 04/11/2022 BUN 19 04/11/2022 NA 148 (H) 04/11/2022 K 3.9 04/11/2022 CL 111 (H) 04/11/2022 BICARB 32 04/11/2022 Creatinine elevated. GFR 28. Negrete catheter was attempted in urology office unsuccessfully. Patient states plan is to place in OR. Elevated blood-pressure reading, without diagnosis of hypertension BP Readings from Last 3 Encounters: 04/19/22 (!) 183/82 04/11/22 (!) 180/85 03/05/19 127/79 Blood pressure is elevated. Ideally this would be optimized prior to anesthesia, however, with surgery being tomorrow we will not have time to optimize preoperatively. This surgery is urgent with elevated PSA, prostate biopsy needed, and urinary retention with acute kidney injury, this should would not postpone surgery. Instructed patient and to monitor BP at home postoperatively, if remains elevated follow up with PCP. Suspected sleep apnea PREOPERATIVE SLEEP APNEA RISK ASSESSMENT SCORE IS 3/3 indicating high risk factors. Patient would like to follow up with PCP postoperatively in regards to sleep medicine referral. Close monitoring per [place] protocol perioperatively. Nicotine dependence Current every day smoker. Cessation advised. I suspect that he has some degree of COPD. 2ppd. PO 92-97%. He describes some shortness of breath with activity. Instructed patient to follow up with PCP. Preop examination Patient presents for preoperative medical risk stratification prior to surgery tomorrow. He denies known chronic conditions including cardiovascular or cerebrovascular conditions. Denies any medical history and has never had surgery. He describes a greater than 4 mets without symptoms of chest pain. He does describe some shortness of breath with activity; I suspect some degree of COPD as he is a current every day 1 1/2 to 2 ppd smoker. His blood pressure is elevated, no previous diagnosis of hypertension. Ideally blood pressure would be better controled prior to surgery, however, surgery is scheduled for tomorrow and is an urgent surgery that should not be postponed. Preoperative sleep apnea risk assessment score is Is 3/3, indicating high risk factors. He should be monitored closely per [place] protocol perioperatively. Apfel score is 1, suggesting mild risk for post operative nausea and vomiting. He has not had anesthesia in the past, denies family history of complications. Chief Complaint Patient presents with Pre-operative Medical Risk Stratification History of Present Illness Ginger Weldon is a 61 y.o. male who presents for preoperative medical risk stratification consult. He is scheduled for Procedure(s): CYSTOSCOPY, URETHERAL DILATION, PROSTATE ULTRASOUND AND PROSTATE BIOPSY NEEDLE BIOPSY PROSTATE with Dr. Whitt on 04/20/2022. He denies any known chronic conditions including cardiovascular or cerebrovascular conditions. He states he does not go to the PCP frequently, it has been a few years. I suspect that he has some degree of COPD as he is an every day 1 1/2 to 2 ppd smoker. He is also high risk for obstructive sleep apnea per preoperative sleep apnea assessment. His blood pressure is elevated, unable to optimize preoperatively as surgery is tomorrow and is time sensitive with his BESSIE. Instructed patient to monitor BP at home and follow up with PCP regarding the previously mentioned suspected medical conditions. He has not had anesthesia in the past and denies family history of complications. Please see below regarding status of active medical conditions and assessment and plan regarding details of preoperative medical risk stratification. Past Medical History: Diagnosis Date BESSIE (acute kidney injury) (HCC) BPH (benign prostatic hyperplasia) Elevated blood pressure reading with diagnosis of hypertension Nicotine dependence No past medical history pertinent negatives.History reviewed. No pertinent surgical history. Social History Tobacco Use Smoking status: Every Day Packs/day: 2.00 Types: Cigarettes Start date: 03/05/1990 Smokeless tobacco: Never Substance Use Topics Alcohol use: Not Currently Family History Problem Relation Age of Onset Diabetes Mother No Known Problems Father Melanoma Brother Coronary artery disease Maternal Uncle Prior to Admission medications taking for visit date 04/19/22 Medication Sig Taking? Discontinued? acetaminophen (TYLENOL) 325 MG tablet Take 2 (two) tablets (650 mg total) by mouth every 6 (six) hours as needed for pain . Yes tamsulosin (FLOMAX) 0.4 mg capsule Take 1 (one) capsule (0.4 mg total) by mouth Daily With Food . Patient taking differently: Take 1 (one) capsule (0.4 mg total) by mouth every evening . Yes No Known Allergies Review of Systems Constitution: (negative) HENT: abnormal dentition (upper and lower dentures) Eyes: (negative) Respiratory: shortness of breath Cardiovascular: (negative) no chest pain, no leg swelling, no palpitations - Exercise capacity: Greater than 4 METS Gastrointestinal: abdominal pain, constipation, nausea Genitourinary: - Retention; frequency Musculoskeletal: (negative) - Low back Skin: (negative) Neurological: (negative) Hematological: (negative) Physical Exam BP (!) 183/82 (BP Location: Left arm, Patient Position: Sitting) Pulse 71 Ht 5' 10 Wt 102.1 kg (225 lb) SpO2 92% BMI 32.28 kg/m Constitutional: He is oriented to person, place, and time. He appears well developed and well-nourished. Skin: Skin is warm and dry. Eyes: Conjunctivae are normal. HENT: Head: Normocephalic and atraumatic. Neck: Normal range of motion. Cardiovascular: Normal rate, regular rhythm and normal heart sounds. Pulmonary/Chest: Effort normal and breath sounds normal. Abdominal: Soft. Musculoskeletal: Normal range of motion. Neurological: He is alert and oriented to person, place, and time. He has normal strength. Psychiatric: He has a normal mood and affect. His behavior is normal. Cognition and memory are normal. Data Preprocedure Sleep Apnea Assessment - High Risk 3/3 Sleep Apnea in the patient's Active Problem List or Medical History: no 1. History of apparent airway obstruction during sleep: (1 point for this category) Do you snore frequently, or snore loud enough to be heard through a closed door?: yes Do you awaken from sleep with a choking sensation or have periods during sleep when someone has observed you pausing between breaths?: yes 2. Somnolence of the patient: (1 point for this category) Do you find yourself frequently sleepy despite adequate hours of sleep the night before?: yes Do you fall asleep easily while: watching TV, reading, riding in or driving a car?: no 3. Predisposing physician characteristics: (1 point for this category, 2 points if the BMI ? 40) BMI (Calculated): 32.3 Neck Circumference (inches): 17.2 inches Recent Results (from the past 1825 days) XR ELBOW RIGHT 3+ VIEWS (STANDARD) 07/31/2021 (Final) Status: Normal Narrative EXAMINATION: XR ELBOW RIGHT 3+ VIEWS (STANDARD) 07/31/2021 9:58 am HISTORY: ORDERING SYSTEM PROVIDED HISTORY: Pain, TECHNOLOGIST PROVIDED HISTORY: Injury/Trauma Reason for exam: right elbow pain x 2 months. Cancer History: u Surgery, RadiationHistory: u Encounter Type: Initial Mechanism of injury: Started hurting after using a leaf blower ORDERING SYSTEM PROVIDED DIAGNOSIS CODES: R52 Pain COMPARISON: None. FINDINGS: Three views were done of the right elbow. The radial head and neck and supracondylar region the humerus are unremarkable. Proximal ulna is unremarkable. There is a slight to mild broad-based olecranon spur noted. Supracondylar region the humerus is unremarkable. No joint effusion or soft tissue mass or obvious foreign body is noted. Bone density is normal. Impression 1. Nonacute plain films of the right elbow. 2. Slight to mild broad-base olecranon spur noted. Please correlate clinically. Workstation ID: [id number] documented in this encounter [facility] 04-19-2022 Nurse Surgical operation note Patient Instructions for [facility]: MAIN OR Prior to surgery: Please contact your Surgeon's office for the scheduled time of your surgery. Report to the Surgery Family Waiting Area in the [facility] 2 hours prior to your surgery. You may use the [employer] parking available at the Blue Entrance /or park in the Blue parking lot - a voucher for parking will be provided to you. One family member may accompany you back into the Pre-Op Area. If your surgeon has given you special guidelines for eating and drinking prior to surgery, follow their instructions. If not, the evening before surgery you may eat a low-fat meal up until midnight. Do not eat anything, including gum, cough drops, hard candy or mints after midnight. Clear liquids, including water, Gatorade and black coffee (no dairy or creamer products), up to two hours prior to surgery are permitted. Do not smoke, chew tobacco or drink alcohol for 24 hours before surgery. Please take any medications you have been instructed to take the morning of your surgery with small sips of water. Please be sure to wear comfortable, appropriate clothing. Please remove all jewelry and piercings, including wedding rings. RINGS WILL BE CUT OFF IF UNABLE TO REMOVE. Leave all valuable items at home. Shower using Dial soap or as advised by your Surgeon's office. Do not apply any makeup or lotions. Gel or acrylic nails must be removed from both ring fingers. Remove all nail urdu/product for surgeries involving extremities. Please remember to bring both your insurance card and a photo ID with you on the day of surgery. After your surgery: If you are having outpatient surgery - you must have a licensed driver medic to take you home. The expectation is that this driver medic will remain at the hospital for the duration of your procedure. You are advised to have a family member with you for at least 24 hours after being under Anesthesia. [facility] 04-19-2022 Nurse Note Patient Instructions for [facility]: MAIN OR Prior to surgery: Please contact your Surgeon's office for the scheduled time of your surgery. Report to the Surgery Family Waiting Area in the [facility] 2 hours prior to your surgery. You may use the [employer] parking available at the Blue Entrance /or park in the Blue parking lot - a voucher for parking will be provided to you. One family member may accompany you back into the Pre-Op Area. If your surgeon has given you special guidelines for eating and drinking prior to surgery, follow their instructions. If not, the evening before surgery you may eat a low-fat meal up until midnight. Do not eat anything, including gum, cough drops, hard candy or mints after midnight. Clear liquids, including water, Gatorade and black coffee (no dairy or creamer products), up to two hours prior to surgery are permitted. Do not smoke, chew tobacco or drink alcohol for 24 hours before surgery. Please take any medications you have been instructed to take the morning of your surgery with small sips of water. Please be sure to wear comfortable, appropriate clothing. Please remove all jewelry and piercings, including wedding rings. RINGS WILL BE CUT OFF IF UNABLE TO REMOVE. Leave all valuable items at home. Shower using Dial soap or as advised by your Surgeon's office. Do not apply any makeup or lotions. Gel or acrylic nails must be removed from both ring fingers. Remove all nail urdu/product for surgeries involving extremities. Please remember to bring both your insurance card and a photo ID with you on the day of surgery. After your surgery: If you are having outpatient surgery - you must have a licensed driver medic to take you home. The expectation is that this driver medic will remain at the hospital for the duration of your procedure. You are advised to have a family member with you for at least 24 hours after being under Anesthesia. documented in this encounter [facility] 07-31-2021 History of Present illness Narrative Associated Order(s): MD Jennings Injection/Arthrocentesis: R lateral epicondyle Post-Procedure Diagnose(s): Lateral epicondylitis of right elbow MD Jennings Injection/Arthrocentesis: R lateral epicondyle Performed by: Sandra Cardozo CNP Authorized by: Sandra Cardozo CNP CPT 33720 - Medium Joint Arthrocentesis: Consent given by: Patient Time out: Immediately prior to the procedure a time out was called Physician or proceduralist has discussed critical or nonroutine steps, procedure duration and anticipated blood loss: Yes Supporting Documentation: Indications: Pain and diagnostic evaluation Procedure Details: Location: Elbow Site: R lateral epicondyle Prep: patient was prepped and draped in usual sterile fashion Needle size: 25 G Medications: 40 mg triamcinolone acetonide 40 mg/mL Anesthetic used:: Lidocaine 1% Anesthetic amount (mL): 2 Patient tolerance: Patient tolerated the procedure well with no immediate complications Ginger Weldon 1960 CC: 60 y.o. is a he with right elbow pain. Chief Complaint Patient presents with Right Elbow - Pain . HPI: Elbow Pain: Patient presents to the office today with right elbow pain. He reports it started a couple of months ago and just isn't getting any better. He denies any injury. He reports pain with lifting objects as well as certain motions. He is right handed. 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 He reports tenderness along the top portion of the elbow. He has been taking NSAIDs on a daily basis without any relief. PMH: No Known Allergies Current Outpatient Medications: gabapentin (NEURONTIN) 100 MG capsule, 1-3 capsules up to 3 times per day . ., Disp: 90 capsule, Rfl: 11 History reviewed. No pertinent past medical history. History reviewed. No pertinent surgical history. Social History Socioeconomic History Marital status: Tobacco Use Smoking status: Current Every Day Smoker Packs/day: 2.00 Types: Cigarettes Start date: 03/05/1990 Smokeless tobacco: Never Used Vaping Use Vaping Use: Never used Substance and Sexual Activity Alcohol use: Never Drug use: Never The patient's past medical history, surgical history, social history, family history, medications and allergies were reviewed with the patient today and are available in the chart for further review. ROS: Review of Systems Constitutional: Negative for activity change and fatigue. HENT: Negative for congestion, hearing loss and trouble swallowing. Eyes: Negative for visual disturbance. Respiratory: Negative for chest tightness and shortness of breath. Cardiovascular: Negative for chest pain and palpitations. Gastrointestinal: Negative for abdominal pain, diarrhea, nausea and vomiting. Endocrine: Negative for polydipsia, polyphagia and polyuria. Genitourinary: Negative for decreased urine volume, difficulty urinating and hematuria. Musculoskeletal: Positive for arthralgias and myalgias. Negative for joint swelling. Skin: Negative for color change, rash and wound. Allergic/Immunologic: Negative for immunocompromised state. Neurological: Positive for weakness. Negative for dizziness, light-headedness and numbness. Hematological: Does not bruise/bleed easily. Psychiatric/Behavioral: Negative for confusion and sleep disturbance. The patient is not nervous/anxious. PE: Physical Exam Musculoskeletal: General: Swelling and tenderness present. Right Elbow Exam Tenderness The patient is experiencing tenderness in the lateral epicondyle. Range of Motion Extension: normal Flexion: normal Pronation: abnormal Supination: abnormal Muscle Strength Pronation: 4/5 Supination: 4/5 Tests Varus: negative Valgus: negative Tinel's sign (cubital tunnel): negative Other Erythema: absent Scars: absent Sensation: normal Pulse: present Imaging: R elbow: no acute fracture or dislocation. No osseous abnormality. Assessment/Plan: After examination and reviewing of the patient x-ray images, I did offer him a cortisone injection to the right elbow which he gladly accepted. I did this without complications and he tolerated this well. If there is no improvement in two weeks he is to follow up in the office. He verbalizes understanding and is in agreement with the treatment plan. Diagnosis: Problem List Items Addressed This Visit None Follow Up: No follow-ups on file. Sandra Cardozo CNP documented in this encounter [facility] Evaluation note Diagnosis Lateral epicondylitis of right elbow- [facility] Screening for prostate cancer- Primary Special screening for malignant neoplasm of prostate [facility] Diagnosis Elevated PSA- Primary Elevated prostate specific antigen (PSA) [facility] Diagnosis Elevated PSA- Primary Elevated prostate specific antigen (PSA) [facility] Diagnosis Hypoxia- Primary Hypoxemia Elevated PSA Elevated prostate specific antigen (PSA) Benign prostatic hyperplasia with urinary retention [facility] Diagnosis Adenocarcinoma of prostate (HCC) Malignant neoplasm of prostate Benign prostatic hyperplasia with urinary retention Stricture of male urethra, unspecified stricture type Renal insufficiency Unspecified disorder of kidney and ureter [facility] Diagnosis Adenocarcinoma of prostate (HCC) Malignant neoplasm of prostate Elevated PSA Elevated prostate specific antigen (PSA) Urinary retention Unspecified retention of urine Stricture of male urethra, unspecified stricture type Renal insufficiency Unspecified disorder of kidney and ureter [facility] Diagnosis Primary hypertension- Primary Unspecified essential hypertension Renal insufficiency Unspecified disorder of kidney and ureter [facility] Diagnosis Rectal or anal pain- Primary Anal or rectal pain [facility]* Diagnosis Adenocarcinoma of prostate (HCC)- Primary Malignant neoplasm of prostate [facility] Diagnosis Adenocarcinoma of prostate (HCC)- Primary Malignant neoplasm of prostate [facility] Diagnosis Adenocarcinoma of prostate (HCC) [C61 (ICD-10-CM)]- Primary Malignant neoplasm of prostate [facility] Diagnosis Urinary retention with incomplete bladder emptying [R33.9 (ICD-10-CM)]- Primary Incomplete bladder emptying [facility] Diagnosis Colon cancer screening Special screening for malignant neoplasms, colon [facility] Diagnosis Adenocarcinoma of prostate (HCC)- Primary Malignant neoplasm of prostate Urinary tract infection with hematuria, site unspecified [facility] Diagnosis Adenocarcinoma of prostate (HCC)- Primary Malignant neoplasm of prostate [facility] Diagnosis Sleep disorder- Primary Unspecified sleep disturbance [facility] Diagnosis Adenocarcinoma of prostate (HCC)- Primary Malignant neoplasm of prostate [facility] Diagnosis Adenocarcinoma of prostate (HCC)- Primary Malignant neoplasm of prostate [facility] Diagnosis Adenocarcinoma of prostate (HCC)- Primary Malignant neoplasm of prostate [facility]* Diagnosis Bladder spasms- Primary Hypertonicity of bladder [facility]* Diagnosis Adenocarcinoma of prostate (HCC)- Primary Malignant neoplasm of prostate [facility]* Diagnosis Bladder spasms- Primary Hypertonicity of bladder [facility]* Diagnosis Adenocarcinoma of prostate (HCC)- Primary Malignant neoplasm of prostate [facility] Diagnosis Adenocarcinoma of prostate (HCC)- Primary Malignant neoplasm of prostate [facility]* Diagnosis Urinary tract infection without hematuria, site unspecified [N39.0 (ICD-10-CM)]- Primary [facility]* Diagnosis Urinary tract infection without hematuria, site unspecified- Primary Adenocarcinoma of prostate (HCC) Malignant neoplasm of prostate Urinary retention with incomplete bladder emptying Incomplete bladder emptying [facility]* Diagnosis Urinary tract infection without hematuria, site unspecified- Primary Adenocarcinoma of prostate (HCC) Malignant neoplasm of prostate Urinary retention with incomplete bladder emptying Incomplete bladder emptying [facility]* Diagnosis Urinary tract infection without hematuria, site unspecified- Primary [facility]* Diagnosis Urinary retention with incomplete bladder emptying- Primary Incomplete bladder emptying [facility]* Diagnosis Hypertension, unspecified type- Primary Adenocarcinoma of prostate (HCC) Malignant neoplasm of prostate Painful bladder spasm Other symptoms involving urinary system Sleep disorder Unspecified sleep disturbance [facility]* Diagnosis Urinary tract infection without hematuria, site unspecified- Primary Adenocarcinoma of prostate (HCC) Malignant neoplasm of prostate Urinary retention with incomplete bladder emptying Incomplete bladder emptying [facility]* Diagnosis Primary hypertension- Primary Unspecified essential hypertension Urinary urgency Urgency of urination [facility]* Diagnosis Adenocarcinoma of prostate (HCC)- Primary Malignant neoplasm of prostate [facility]* Diagnosis Adenocarcinoma of prostate (HCC)- Primary Malignant neoplasm of prostate [facility]* Diagnosis Adenocarcinoma of prostate (HCC) Malignant neoplasm of prostate Urinary frequency Insomnia, unspecified type [facility]* Diagnosis Urinary tract infection with hematuria, site unspecified- Primary [facility]* Diagnosis Primary hypertension Unspecified essential hypertension [facility]* Diagnosis 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 Penile pain Unspecified disorder of penis [facility] Diagnosis Malignant neoplasm of prostate (CMS/HCC) Malignant neoplasm of prostate Urinary frequency Nocturia Urinary hesitancy documented in this encounter [facility] Work Phone: Evaluation note* Diagnosis Urinary hesitancy documented in this encounter [facility] Work Phone: [phone] note* Diagnosis 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 Urinary hesitancy Malignant neoplasm of prostate (CMS/HCC) Malignant neoplasm of prostate Nocturia Urinary frequency Bladder stone Other calculus in bladder documented in this encounter [facility] Work Phone: [phone] note* Diagnosis Malignant neoplasm of prostate (CMS/HCC) Malignant neoplasm of prostate 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 urethral stricture Nocturia documented in this encounter [facility] Work Phone: [phone] note* Diagnosis Adenocarcinoma of prostate (HCC)- Primary Malignant neoplasm of prostate [facility] History of bladder stone- Primary Other stricture of urethra in male documented in this encounter [facility] Work Phone: [phone] note* Diagnosis Adenocarcinoma of prostate (HCC)- Primary Malignant neoplasm of prostate [facility] Urinary retention- Primary Unspecified retention of urine Benign prostatic hyperplasia with urinary retention Stricture of male urethra, unspecified stricture type documented in this encounter [facility] Work Phone: [phone] note* Diagnosis 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 urethral stricture Malignant neoplasm of prostate (Multi) Malignant neoplasm of prostate Nocturia documented in this encounter [facility] Work Phone: [phone] note* Diagnosis Screening for colon cancer- Primary Special screening for malignant neoplasms, colon 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 urethral stricture Primary hypertension Unspecified essential hypertension Screening for lipid disorders Skin lesion Unspecified disorder of skin and subcutaneous tissue Benign prostatic hyperplasia with urinary retention Nocturia Adenocarcinoma of prostate (Multi) Malignant neoplasm of prostate documented in this encounter [facility] Work Phone: [phone] note* Diagnosis Ureteral stricture- Primary Stricture or kinking of ureter documented in this encounter [facility] Work Phone: [phone] note* Diagnosis Urinary retention- Primary Unspecified retention of urine Stricture of male urethra Malignant neoplasm of prostate (Multi) Malignant neoplasm of prostate History of bladder stone Ureteral stricture Stricture or kinking of ureter Nocturia Urinary hesitancy Urinary frequency Stricture of male urethra, unspecified stricture type Urinary retention Unspecified retention of urine documented in this encounter [facility] Work Phone: Evaluation note* Diagnosis Malignant neoplasm of prostate (Multi) Malignant neoplasm of prostate Nocturia 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 urethral stricture Urinary hesitancy History of bladder stone documented in this encounter [facility] Work Phone: Evaluation note* Diagnosis Other stricture of urethra in male Malignant neoplasm of prostate (Multi) Malignant neoplasm of prostate Nocturia History of bladder stone 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 urethral stricture Primary hypertension Unspecified essential hypertension documented in this encounter [facility] Work Phone: Evaluation note* Diagnosis Positive colorectal cancer screening using Cologuard test- Primary Primary hypertension Unspecified essential hypertension Screening for lipid disorders Adenocarcinoma of prostate (Multi) Malignant neoplasm of prostate Basal cell carcinoma (BCC) of skin of other part of face documented in this encounter [facility] Work Phone: Evaluation note* Diagnosis Other intervertebral disc degeneration, 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 Radiculopathy, lumbar region Thoracic or lumbosacral neuritis or radiculitis, unspecified documented in this encounter [facility] Work Phone: Evaluation note* Diagnosis Pars defect of lumbar spine- Primary [facility] Pars defect of lumbar spine- Primary documented in this encounter [facility] Work Phone: [phone] note* Diagnosis Pars defect of lumbar spine documented in this encounter [facility] Work Phone: [phone] note* Diagnosis Encounter for pre-operative cardiovascular clearance- Primary Premature atrial complexes Supraventricular premature beats documented in this encounter [facility] Work Phone: Evaluation note* Diagnosis Spondylolisthesis of lumbar region- Primary Spondylolisthesis of lumbar region Cancer (CMS/HCC) (HCC) Other malignant neoplasm of unspecified site [facility] Je Lira PA-C - 09/11/2024 2:15 PM EDT Subjective Patient ID: Ginger Weldon is a 63 y.o. male who presents for pt here to [facility]. HPI Goes by Max HTN: BP 122/80 today. BP at home at goal. Denies symptoms currently. PROSTATE CANCER: Hx TURP. Following with urology. Stable currently. BASAL CELL: Following with Dr. Thorpe in [place], will have gentle radiation soon. Positive Cologaurd 2023. Last PSA WNL. Review of Systems Constitutional: Negative. Respiratory: Negative. Cardiovascular: Negative. Gastrointestinal: Negative. Objective BP 122/80 Pulse 65 Ht 1.778 m (5' 10) Wt 88.5 kg (195 lb) SpO2 97% BMI 27.98 kg/m Physical Exam Constitutional: General: He is not in acute distress. Appearance: Normal appearance. He is not ill-appearing. HENT: Head: Normocephalic and atraumatic. Eyes: Extraocular Movements: Extraocular movements intact. Conjunctiva/sclera: Conjunctivae normal. Cardiovascular: Rate and Rhythm: Normal rate. Pulmonary: Effort: Pulmonary effort is normal. Abdominal: General: There is no distension. Musculoskeletal: General: Normal range of motion. Cervical back: Normal range of motion. Skin: General: Skin is warm and dry. Neurological: General: No focal deficit present. Mental Status: He is alert and oriented to person, place, and time. Psychiatric: Mood and Affect: Mood normal. Behavior: Behavior normal. Thought Content: Thought content normal. Judgment: Judgment normal. Assessment/Plan Chronic conditions stable. No medication changes today. Colonoscopy ordered. Fasting labs soon. Follow up 6 months or sooner prn. [facility] Reason for referral (narrative)* Consultation (Routine) - Authorized Specialty Diagnoses / Procedures Referred By Matt navarro Referred To Contact Primary Care Procedures Follow Up In Primary Care - Established Keny Reddy DO [address] [facility] [place] [address] Referral ID Status Reason Start Date Expiration Date V isits Requested Visits Authorized [id number] Authorized 02/27/2024 02/26/2025 1 1 * Consultation (Routine) - Authorized Specialty Diagnoses / Procedures Referred By Matt t Referred To Contact Dermatology Diagnoses Skin lesion Keny Reddy DO [address] [facility] [place] [address] Referral ID Status Reason Start Date Expiration Date Visits Requested Visits Authorized [id number] Authorized Specialty Services Required 02/27/2024 02/26/2025 1 1 [facility] Work Phone: [facility] for visit Narrative* Auth/Cert Specialty Diagnoses / Procedures Referred By Matt t Referred To Contact Diagnoses Elevated PSA Benign prostatic hyperplasia with urinary retention Elevated PSA [R97.20] Benign prostatic hyperplasia with urinary retention [N40.1, R33.8] Procedures MT BIOPSY OF PROSTATE,NEEDLE/PUNCH CYSTOSCOPY, URETHERAL DILATION, PROSTATE ULTRASOUND AND PROSTATE BIOPSY Referral ID Status Reason Start Date Expiration Date Visits Re quested Visits Authorized [id number] 1 1 [facility] for visit Narrative* Auth/Cert Specialty Diagnoses / Procedures Referred By Matt t Referred To Contact Diagnoses Stricture of male urethra, unspecified stricture type Urinary retention Stricture of male urethra, unspecified stricture type [N35.919] Urinary retention [R33.9] Procedures MT TRURL ELECTROSURG RESCJ PROSTATE BLEED COMPLETE [place]ection [place] [address] [place] [phone] Phone: tel: fax: [facility] [place] [address] [place] [phone] fax: Referral ID Status Reason Start Date Expiration Date Visits Re quested Visits Authorized [id number] 1 1 [facility] Work Phone: reason for visit Narrative* Imaging (Routine) - Authorized Specialty Diagnoses / Procedures Referred By Matt t Referred To Contact Radiology Diagnoses Other intervertebral disc degeneration, 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 Radiculopathy, lumbar region Procedures MR lumbar spine wo IV contrast Young Maldonado PA-C Referral ID Status Reason Start Date Expiration Date Visits Requested Visits Authorized [id number] Authorized Perform Procedure 10/02/2024 10/02/2025 1 1 [facility] Work Phone: Rejwyx for visit Narrative* Cardiovascular (Routine) - Authorized Specialty Diagnoses / Procedures Referred By Contac t Referred To Contact Diagnoses Pars defect of lumbar spine Procedures ECG 12 lead (Ancillary Performed) Monica Mg, MANAGER INVENTORY MANAGEMENT-REJECTOR [address] [place] [address] Phone: tel: fax: Referral ID Status Reason Start Date Expiration Date V isits Requested Visits Authorized [id number] Authorized 11/25/2024 11/25/2025 1 1 [facility] Work Phone: Rekrpz for visit Narrative* Auth/Cert (Routine) Specialty Diagnoses / Procedures Referred By Contac t Referred To Contact Diagnoses Spondylolysis, lumbar region Procedures MT RAMOS FACETEC/FORAMOT DRG ARTHRD LUMBAR 1 VRT SGM MT ARTHRODESIS COMBINED TQ 1NTRSPC LUMBAR MT POSTERIOR NON-SEGMENTAL INSTRUMENTATION MT INSJ BIOMCHN DEV INTERVERTEBRAL DSC SPC W/ARTHRD POSTERIOR LUMBAR 5 THROUGH SACRAL 1 DECOMPRESSION, FUSION, PEDICLE SCREWS, POSSIBLE CAGE INSERTION Charly Kilgore MD [address] [place] [address] Phone: tel: fax: Referral ID Status Reason Start Date Expiration Date Visits Re quested Visits Authorized [id number] 11/24/2024 1 1 [facility] Health Summary Purpose Family History No Family History Records FoundNo Family History Records FoundNo Family History Records FoundNo Family History Records FoundNo Family History Records FoundNo Family History Records FoundNo Family History Records FoundNo Family History Records FoundNo Family History Records FoundNo Family History Records Found Advance Directives No Advanced Directives Records FoundDocuments on File Type Date Recorded 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 Expl 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 Advance Directives and Living Will 03/05/2019 3:11 PM PATIENT DENIED ADV D IR PACKET Latest Code Status on File Date Activated Date Inactivated Comments 04/21/2022 2:17 AM 04/23/2022 7:45 PM Latest Code Status on File Date Activated Date Inactivated Comments 04/21/2022 2:17 AM 04/23/2022 7:45 PM Latest Code Status on File Code Status Date Activated Date Inactivated Comments Full Code 04/21/2022 2:17 AM 04/23/2022 7:45 PM Latest Code Status on File Code Status Date Activated Date Inactivated Comments Full Code 04/21/2022 2:17 AM 04/23/2022 7:45 PM Latest Code Status on File Code Status Date Activated Date Inactivated Comments Full Code 07/26/2023 8:45 AM Question Answer Comments Plan of Care: Code Status Discussion Completed Decision Maker: Patient Latest Code Status on File Code Status Date Activated Date Inactivated Comments Full Code 07/26/2023 8:45 AM Question Answer Comments Plan of Care: Code Status Discussion Completed Decision Maker: Patient Date Activated Date Inactivated Comments 07/26/2023 8:45 AM Question Answer Comments Plan of Care: Code Status Discussion Completed Decision Maker: Patient Date Activated Date Inactivated Comments 04/21/2022 2:17 AM 04/23/2022 7:45 PM Date Activated Date Inactivated Comments 07/26/2023 8:45 AM Question Answer Comments Plan of Care: Code Status Discussion Completed Decision Maker: Patient Instructions * Patient Instructions* Kelvin Kohler MD - 03/05/2019 4:16 PM EDT BEGIN WITH GABAPENTIN AT NIGHT STARTING AT ONE CAPSULE , AND INCREASE OVER 3-9 DAYS TO 300 MG HELPFUL AND TOLERATED. documented in this encounter* Patient Instructions* Dakota Person CNP - 09/14/2018 4:43 PM EDT TenDINITIS Your Care Instructions Tenosynovitis (say jii-pw-vmw-uh-VY-tus) means the lining of a tendon is inflamed. This problem usually affects tendons in your thumb and wrist. A tendon is a cord that joins muscle to bone. Tenosynovitis can be caused by an injury. Or it may be caused by repeating a movement over and over, such as when you knit, lift things, or play video games. In rare cases, an infected wound causes it. In most cases, you can recover fully. But if the problem is caused by doing something over and overand you don't stop or change doing that, it may come back. Follow-up care is a hoffman part of your treatment and safety. Be sure to make and go to all appointments, and call your doctor if you are having problems. It's also a good idea to know your test resultsand keep a list of the medicines you take. How can you care for yourself at home? Prop up the sore wrist on a pillow when you ice it or anytime you sit or lie down during the next 3days. Try to keep it above the level of your heart. This will help reduce swelling. Put ice or cold packs on your wrist for 10 to 20 minutes at a time. Try to do this every 1 to 2 hours for the next 3 days (when you are awake) or until the swelling goes down. Put a thin cloth between the ice pack and your skin. If your swelling is gone after 2 or 3 days, put a heating pad set on low or a warm cloth on your wrist for 15 to 20 minutes. This can reduce pain. If your doctor gave you an elastic bandage, keep it on for the next 24 to 36 hours or for as long as your doctor told you. The bandage should be snug. But it should not be tight enough to cause numbness, tingling, or swelling. If your doctor gave you a splint or brace, wear it as directed. It will protect your wrist until itis better. Take pain medicines exactly as directed. ? If the doctor gave you a prescription medicine for pain, take it as prescribed. ? If you are not taking a prescription pain medicine, ask your doctor if you can take an zkll-zes-gtnstmp medicine. If your doctor prescribes antibiotics, take them as directed. Do not stop taking them just because you feel better. You need to take the full course of antibiotics. Try not to use your injured wrist and hand. After you are better, do exercises to make the muscles around your tendon stronger. This can prevent the problem from coming back. Follow instructions from your doctor. When should you call for help? Call your doctor now or seek immediate medical care if: Your hand or fingers are cool or pale or change colors. You have tingling, weakness, or numbness in your hand and fingers. Your pain gets worse. The tendon may be infected. Signs of infection include: ? Increased pain and tenderness around the wrist or thumb. ? Swelling or redness of the wrist or thumb. ? A fever. Watch closely for changes in your health, and be sure to contact your doctor if: You do not get better as expected. Where can you learn more? Log into your personal health record on [email or web address] and enter Z348 in the Education box to learn more about Tenosynovitis of the Wrist: Care Instructions. Current as of: March 06, 2018 Content Version: 12.0 [id number] Submittable. Care instructions adapted under license by your healthcare professional. If you have questions about a medical condition or this instruction, always ask your healthcare professional. Submittable disclaims any warranty or liability for your use of this information. in this encounter History of Present Illness * Kelvin Kohler MD - 03/05/2019 3:52 PM EDT Patient: Ginger Weldon : 1960 Date: 03/05/19 This 58 y.o. male presents for Prevenative exam (OV); Restless Leg Syndrome; and Painful feet History of Present Illness: HPI Preventive exam - Declines colonoscopy , cologuard, Foot pain . Worse if having been on feet during the day . Has restlessness of the legs when sittingat night. Clubbing - noted by patient at least since age 29 . Past Medical/Surgical History: History reviewed. No pertinent past medical history. History reviewed. No pertinent surgical history. Family History: Family History Problem Relation Age of Onset Coronary artery disease Maternal Uncle Social History: Social History Socioeconomic History Marital status: Spouse name: Not on file Number of children: Not on file Years of education: Not on file Highest education level: Not on file Occupational History Not on file Social Needs Financial resource strain: Not hard at all Food insecurity: Worry: Never true Inability: Never true Transportation needs: Medical: No Non-medical: No Tobacco Use Smoking status: Current Every Day Smoker Packs/day: 1.50 Types: Cigarettes Start date: 03/05/1990 Smokeless tobacco: Never Used Substance and Sexual Activity Alcohol use: Never Frequency: Never Drug use: Never Sexual activity: Not on file Lifestyle Physical activity: Days per week: Not on file Minutes per session: Not on file Stress: Not on file Relationships Social connections: Talks on phone: Once a week Gets together: Once a week Attends jainism service: Not on file Active member of club or organization: Not on file Attends meetings of clubs or organizations: Not on file Relationship status: Not on file Other Topics Concern Not on file Social History Narrative Not on file Allergies: No Known Allergies Medications: Current Outpatient Medications Medication Sig Dispense Refill gabapentin (NEURONTIN) 100 MG capsule 1-3 capsules up to 3 times per day . . 90 capsule 11 No current facility-administered medications for this visit. Review of Systems: Review of Systems Physical Exam: Vital Signs: BP 127/79 (BP Location: Left arm, Patient Position: Sitting, BP Cuff Size: Adult) Pulse 84 Ht 5' 9.75 Wt 94.3 kg (208 lb) SpO2 93% BMI 30.06 kg/m Physical Exam Constitutional: He is oriented to person, place, and time. He appears well- developed and well-nourished. Cardiovascular: Normal rate, regular rhythm, S1 normal, S2 normal, normal heart sounds, intact distal pulses and normal pulses. No extrasystoles are present. Severe clubbing of all nails. Pulmonary/Chest: Effort normal. He has rales (slightly coarse BSon left. ). Abdominal: Soft. There is no tenderness. Musculoskeletal: General: No edema. Neurological: He is alert and oriented to person, place, and time. Sensation intact ; Actually hypersensitive feet. Normal monofilament Psychiatric: He has a normal mood and affect. His behavior is normal. Judgment and thought content normal. Assessment/Plan: Ginger was seen today for prevenative exam, restless leg syndrome and painful feet. Diagnoses and all orders for this visit: Preventive measure - Comprehensive Metabolic Panel; Future - PSA Monitor; Future - Lipid Panel; Future - POC Hemoglobin A1C - CBC and Differential; Future Foot pain, bilateral - gabapentin (NEURONTIN) 100 MG capsule; 1-3 capsules up to 3 times per day . . Clubbing of nails Abnormal breath sounds - XR Chest AP/PA and LAT; Future Return in about 2 months (around 05/05/2019). Patient Instructions BEGIN WITH GABAPENTIN AT NIGHT STARTING AT ONE CAPSULE , AND INCREASE OVER 3-9 DAYS TO 300 MG HELPFUL AND TOLERATED. For any new medications prescribed today, patient was educated about indications for the medication, how to take the medication and potential side effects of the medications. Goals None documented in this encounter* Dakota Person, REJECTOR - 09/14/2018 4:55 PM EDT Subjective: Patient ID: Ginger Weldon is a 57 y.o. male. Chief Complaint: Patient is here for B/L thumb pain. 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 States that he has been having intermittent pain through the week and then when off on the weekends he feels better. He is right hand dominant. No injury. Tried Aleve with no releif. The following portions of the patient's history were reviewed and updated as appropriate: allergies, current medications, past family history, past medical history, past social history, past surgicalhistory and problem list. History reviewed. No pertinent past medical history. History reviewed. No pertinent surgical history. No family history on file. Review of Systems Musculoskeletal: B/L thumb pain All other systems reviewed and are negative. Objective: BP 130/84 Pulse 83 Temp 98.9 F (37.2 C) Resp 16 Ht 5' 10 Wt 90.7 kg (200 lb) SpO2 96% BMI 28.70 kg/m Physical Exam Constitutional: He is oriented to person, place, and time. He appears well- developed and well-nourished. No distress. HENT: Head: Normocephalic. Eyes: Pupils are equal, round, and reactive to light. Neck: Normal range of motion. Neck supple. Cardiovascular: Normal rate and regular rhythm. Pulmonary/Chest: Effort normal and breath sounds normal. Musculoskeletal: Right wrist: Normal. Left wrist: Normal. Left hand: Normal. Normal strength noted. He exhibits no finger abduction and no thumb/finger opposition. Hands: Pain with flexion and extension. No erytetema and no warmth over the joint. Neurological: He is alert and oriented to person, place, and time. Skin: Skin is warm and dry. Capillary refill takes less than 2 seconds. He is not diaphoretic. Nursing note and vitals reviewed. Assessment: Tendinitis - NO injury Plan: Try short course of steroid and follow up in one week with PCP . He requested a work slip for tomorrow. Denied any questions. in this encounter Assessments Diagnosis Preventive measure- Primary Need for unspecified prophylactic measure Foot pain, bilateral Clubbing of nails Other specified disease of nail Abnormal breath sounds Abnormal chest sounds Diagnosis Tendinitis of thumb- Primary Reason for Referral Specialty Diagnoses / Procedures Referred By Contac t Referred To Contact Urology Diagnoses Elevated PSA Kelvin Kohler MD [address] [place] [address] Florian Whitt MD [address] [place] [address] Referral ID Status Reason Start Date Expiration Date Visits Requested Visits Authorized [id number] Authorized Patient Preference 01/12/2022 01/12/2023 1 1 Specialty Diagnoses / Procedures Referred By Contac t Referred To Contact Radiology Diagnoses Adenocarcinoma of prostate (HCC) Procedures CT Abdomen Pelvis With And Without Contrast Florian Whitt MD [address] [facility] [address] [place] [address] Referral ID Status Reason Start Date Expiration Date V isits Requested Visits Authorized [id number] New Request 05/09/2022 05/09/2023 1 1 Specialty Diagnoses / Procedures Referred By Contac t Referred To Contact Radiology Diagnoses Adenocarcinoma of prostate (HCC) Procedures NM Bone Whole Body Florian Whitt MD [address] [facility] [address] [place] [address] Referral ID Status Reason Start Date Expiration Date V isits Requested Visits Authorized [id number] New Request 05/09/2022 05/09/2023 4 4 Specialty Diagnoses / Procedures Referred By Contac t Referred To Contact Radiation Oncology Diagnoses Adenocarcinoma of prostate (HCC) Florian Whitt MD [address] [facility] [address] [place] [address] Maureen Parsons MD [address] [place] [address] Referral ID Status Reason Start Date Expiration Date Visits Requested Visits Authorized [id number] Authorized Specialty Services Required/Pat ient's Best Interest 06/20/2022 06/20/2023 1 1 Specialty Diagnoses / Procedures Referred By Contac t Referred To Contact Radiology Diagnoses Adenocarcinoma of prostate (HCC) Procedures MR Prostate With And Without Contrast Maureen Parsons MD [address] [place] [address] Referral ID Status Reason Start Date Expiration Date V isits Requested Visits Authorized [id number] New Request 07/05/2022 07/05/2023 1 1 Specialty Diagnoses / Procedures Referred By Contac t Referred To Contact Radiology Diagnoses Adenocarcinoma of prostate (HCC) Procedures PET Prostate Imaging With CT Skull To Thigh Maureen Parsons MD [address] [place] [address] Referral ID Status Reason Start Date Expiration Date V isits Requested Visits Authorized [id number] New Request 07/05/2022 07/05/2023 4 4 Referral ID Status Reason Start Date Expiration Date V isits Requested Visits Authorized [id number] Pending Review 07/06/2022 07/06/2023 4 4 Specialty Diagnoses / Procedures Referred By Contac t Referred To Contact Diagnoses Malignant neoplasm of prostate (CMS/HCC) Price Reeves MD [address] [place] [address] Referral ID Status Reason Start Date Expiration Date V isits Requested Visits Authorized [id number] Pending Review 08/22/2023 08/21/2024 1 1 Specialty Diagnoses / Procedures Referred By Contac t Referred To Contact Diagnoses Malignant neoplasm of prostate (Multi) Price Reeves MD [address] [place] [phone] Referral ID Status Reason Start Date Expiration Date V isits Requested Visits Authorized [id number] Pending Review 03/11/2024 03/11/2025 1 1 Additional Source Comments (unrecognized sect ion and content) No Status Records FoundNo Status Records FoundNo Status Records FoundNo Status Records FoundNo Status Records FoundNo Status Records FoundNo Status Records FoundNo Status Records FoundNo Status Records FoundNo Status Records Found INFORMATION SOURCE (unrecogn ized section and content) DATE CREATED AUTHOR 09/17/2018 [facility] DATE CREATED AUTHOR AUTHOR'S ORGANIZ ATION 03/25/2023 [facility] DATE CREATED AUTHOR AUTHOR'S ORGANIZ ATION 07/29/2023 [facility] DATE CREATED AUTHOR AUTHOR'S ORGANIZ ATION 03/02/2024 [facility] DATE CREATED AUTHOR AUTHOR'S ORGANIZ ATION 04/27/2024 [facility] DATE CREATED AUTHOR AUTHOR'S ORGANIZ ATION 11/28/2024 [facility] DATE CREATED AUTHOR AUTHOR'S ORGANIZ ATION 11/28/2024 [facility] DATE CREATED AUTHOR AUTHOR'S ORGANIZ ATION 11/28/2024 [facility] DATE CREATED AUTHOR AUTHOR'S ORGANIZ ATION 12/04/2024 [facility] DATE CREATED AUTHOR AUTHOR'S ORGANIZ ATION 12/23/2024 [facility] Reason for Visit (unrecogniz ed section and content) Reason Comments CYSTOSCOPY Specialty Diagnoses / Procedures Referred By Contac t Referred To Contact Urology Diagnoses Unspecified urethral stricture, male, meatal Procedures MT CYSTOURETHROSCOPY MT DILAT URETHRAL STRIX FILIFORM & FOLLWR MALE SBSQ Do [id number] Urology [address] [facility] [address] [place] [address] Price Reeves MD [address] [place] [address] Referral ID Status Reason Start Date Expiration Date V isits Requested Visits Authorized [id number] Authorized 02/27/2024 02/26/2025 1 1 Reason Comments Prevenative exam OV Restless Leg Syndrome Painful feet Reason Comments Joint Pain both thumbs painful left worse than the right Reason Comments Pain Reason Comments post op tov biopsy results Reason Comments unable to void Reason Comments Follow-up Reason Comments Adenocarcima of prostate Hypertension Renal insufficiency OV TO RE-ESTABLISH Reason Comments tov Reason Comments urinary retention Reason Comments Prostate Cancer OTV Reason Comments Other Negrete catheter saldana e Reason Comments cystoscopy Reason Comments Hypertension Adenocarcinoma of protate OV 3 MTH F/U Reason Comments Prostate Cancer Follow Up Reason Onset Date Comments Medication Refill 02/15/2023 Reason Comments Hypertension OV 4 MTH FU Reason Onset Date Comments Medication Refill 04/09/2023 Reason Comments Follow-up Reason Onset Date Comments Medication Refill 06/07/2023 Reason Comments hx of prostate cancer Reason Comments URINARY HESITANCY Reason Comments CATH PULL Reason Comments Lupron injection Specialty Diagnoses / Procedures [facility] Referred To Contact Diagnoses Malignant neoplasm of prostate ([facility]/HCC) Price Reeves MD [address] [place] [address] Referral ID Status Reason Start Date Expiration Date V isits Requested Visits Authorized [id number] Pending Review 08/22/2023 08/21/2024 1 1 Reason Comments Prostate Cancer F/u Reason Comments cath removal Reason Comments 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 Reason Comments Lupron Specialty Diagnoses / Procedures [facility] Referred To Contact Urology Diagnoses Benign prostatic hyperplasia with lower urinary tract symptoms Gross hematuria Procedures MT CYSTOURETHROSCOPY MT DILAT URETHRAL STRIX FILIFORM & FOLLWR MALE SBSQ Do [id number] Urology [address] [facility] [address] [place] [address] Price Reeves MD [address] [place] [address] Referral ID Status Reason Start Date Expiration Date V isits Requested Visits Authorized [id number] Authorized 02/27/2024 02/26/2025 1 1 Reason Comments 3 month follow up Reason Comments 1 month with PSA Reason Comments pt here to est care Reason Comments New Patient LLE pain and foot dr op Reason Onset Date Comments Surgery Scheduling 11/06/2024 Reason Comments surgery clearance Spine L5-S1 Fusion w ith possible cage Reason Comments New Patient Visit Pt here for preop fo r back surgery. 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 06/17/17 06/16/50 Real Estate Services Coordinator Relationship Specialty Start Date End Date Kelvin Kohler MD PCP - General Family Medicine 09/14/18 Kelvin Kohler MD [address] [place] [address] PCP - ARNOLDO Attributed [facility] 06/17/17 06/16/50 Real Estate Services Coordinator Relationship Specialty Start Date End Date Kelvin Kohler MD PCP - General Family Medicine 09/14/18 Kelvin Kohler MD [address] [place] [address] PCP - ARNOLDO Attributed Provider - [facility] 06/17/17 06/16/50 Kelvin Kohler MD [address] [place] [address] PCP - ARNOLDO Attributed Provider - [facility] 06/17/17 06/16/50 Real Estate Services Coordinator Relationship Specialty Start Date End Date Kelvin Kohler MD PCP - General Family Medicine 09/14/18 Kelvin Kohler MD [address] [place] [address] PCP - ARNOLDO Attributed Provider - [facility] 06/17/17 06/16/50 Kelvin Kohler MD [address] [place] [address] PCP - ARNOLDO Attributed Provider - [facility] 06/17/17 06/16/50 Real Estate Services Coordinator Relationship Specialty Start Date End Date Kelvin Kohler MD [address] [place] [address] PCP - General Family Medicine 09/14/18 Kelvin Kohler MD [address] [place] [address] PCP - ARNOLDO Attributed Provider - [facility] 06/17/17 06/16/50 Kelvin Kohler MD [address] [place] [address] PCP - ARNOLDO Attributed Provider - [facility] 06/17/17 06/16/50 Real Estate Services Coordinator Relationship Specialty Start Date End Date Kelvin Kohler MD [address] [place] [address] PCP - General Family Medicine 09/14/18 Kelvin Kohler MD [address] [place] [address] PCP - ARNOLDO Attributed Provider - [facility] 06/17/17 06/16/50 Kelvin Kohler MD [address] [place] [address] PCP - ARNOLDO Attributed Provider - [facility] 06/17/17 06/16/50 Real Estate Services Coordinator Relationship Specialty Start Date End Date Kelvin Kohler MD [address] [place] [address] PCP - General Family Medicine 09/14/18 Kelvin Kohler MD [address] [place] [address] PCP - ARNOLDO Attributed Provider - [facility] 06/17/17 06/16/50 Kelvin Kohler MD [address] [place] [address] PCP - ARNOLDO Attributed Provider - [facility] 06/17/17 06/16/50 Real Estate Services Coordinator Relationship Specialty Start Date End Date Kelvin Kohler MD [address] [place] [address] PCP - General Family Medicine 09/14/18 Kelvin Kohler MD [address] [place] [address] PCP - ARNOLDO Attributed Provider - [facility] 06/17/17 06/16/50 Kelvin Kohler MD [address] [place] [address] PCP - ARNOLDO Attributed Provider - [facility] 06/17/17 06/16/50 Real Estate Services Coordinator Relationship Specialty Start Date End Date Kelvin Kohler MD [address] [place] [address] PCP - General Family Medicine 09/14/18 Kelvin Kohler MD [address] [place] [address] PCP - ARNOLDO Attributed Provider - [facility] 06/17/17 06/16/50 Kelvin Kohler MD [address] [place] [address] PCP - ARNOLDO Attributed Provider - [facility] 06/17/17 06/16/50 Real Estate Services Coordinator Relationship Specialty Start Date End Date Kelvin Kohler MD [address] [place] [address] PCP - General Family Medicine 09/14/18 Kelvin Kohler MD [address] [place] [address] PCP - ARNOLDO Attributed Provider - [facility] 06/17/17 06/16/50 Kelvin Kohler MD [address] [place] [address] PCP - ARNOLDO Attributed Provider - [facility] 06/17/17 06/16/50 Real Estate Services Coordinator Relationship Specialty Start Date End Date Kelvin Kohler MD [address] [place] [address] PCP - General Family Medicine 09/14/18 Kelvin Kohler MD [address] [place] [address] PCP - ARNOLDO Attributed Provider - [facility] 06/17/17 06/16/50 Kelvin Kohler MD [address] [place] [address] PCP - ARNOLDO Attributed Provider - [facility] 06/17/17 06/16/50 Real Estate Services Coordinator Relationship Specialty Start Date End Date Kelvin Kohler MD [address] [place] [address] PCP - General Family Medicine 09/14/18 Kelvin Kohler MD [address] [place] [address] PCP - ARNOLDO Attributed Provider - [facility] 06/17/17 06/16/50 Kelvin Kohler MD [address] [place] [address] PCP - ARNOLDO Attributed Provider - [facility] 06/17/17 06/16/50 Real Estate Services Coordinator Relationship Specialty Start Date End Date Kelvin Kohler MD [address] [place] [address] PCP - General Family Medicine 09/14/18 Kelvin Kohler MD [address] [place] [address] PCP - ARNOLDO Attributed Provider - [facility] 06/17/17 06/16/50 Kelvin Kohler MD [address] [place] [address] PCP - ARNOLDO [facility]ributed [facility] - [facility] 06/17/17 06/16/50 Real Estate Services Coordinator Relationship Specialty Start Date End Date Kelvin Kohler MD [address] [place] [address] PCP - General Family Medicine 09/14/18 Kelvin Kohler MD [address] [place] [address] PCP - ARNOLDO Attributed Provider - [facility] 06/17/17 06/16/50 Real Estate Services Coordinator Relationship Specialty Start Date End Date Kelvin Kohler MD [address] [place] [address] PCP - General Family Medicine 09/14/18 Kelvin Kohler MD [address] [place] [address] PCP - ARNOLDO Attributed Provider - [facility] 06/17/17 06/16/50 Real Estate Services Coordinator Relationship Specialty Start Date End Date Kelvin Kohler MD [address] [place] [address] PCP - General Family Medicine 09/14/18 Kelvin Kohler MD [address] [place] [address] PCP - ARNOLDO Attributed Provider - [facility] 06/17/17 06/16/50 Real Estate Services Coordinator Relationship Specialty Start Date End Date Kelvin Kohler MD [address] [place] [address] PCP - General Family Medicine 09/14/18 Kelvin Kohler MD [address] [place] [address] PCP - ARNOLDO Attributed Provider - [facility] 06/17/17 06/16/50 Real Estate Services Coordinator Relationship Specialty Start Date End Date Kelvin Kohler MD [address] [place] [address] PCP - General Family Medicine 09/14/18 Kelvin Kohler MD [address] [place] [address] PCP - ARNOLDO Attributed Provider - [facility] 06/17/17 06/16/50 Real Estate Services Coordinator Relationship Specialty Start Date End Date Kelvin Kohler MD [address] [place] [address] PCP - General Family Medicine 09/14/18 Kelvin Kohler MD [address] [place] [address] PCP - ARNOLDO Attributed Provider - [facility] 06/17/16 06/16/50 Lee Ann Rivas RN Nurse Navigator Oncology 07/31/22 Jenn Callahan MD [address] [place] [address] Radiation Oncology 07/31/22 Florian Whitt MD [address] [place] [address] Consulting Physician Urologic Surgery 07/31/22 Real Estate Services Coordinator Relationship Specialty Start Date End Date Kelvin Kohler MD [address] [place] [address] PCP - General Family Medicine 09/14/18 Kelvin Kohler MD [address] [place] [address] PCP - ARNOLDO Attributed Provider - [facility] 06/17/16 06/16/50 Lee Ann Rivas, RN Nurse Navigator Oncology 07/31/22 Jenn Callahan MD [address] [place] [address] Radiation Oncology 07/31/22 Florian Whitt MD [address] [place] [address] Consulting Physician Urologic Surgery 07/31/22 Real Estate Services Coordinator Relationship Specialty Start Date End Date Kelvin Kohler MD [address] [place] [address] PCP - General Family Medicine 09/14/18 Kelvin Kohler MD [address] [place] [address] PCP - ARNOLDO Attributed Provider - [facility] 06/17/16 06/16/50 Lee Ann Rivas, RN Nurse Navigator Oncology 07/31/22 Jenn Callahan MD [address] [place] [address] Radiation Oncology 07/31/22 Florian Whitt MD [address] [place] [address] Consulting Physician Urologic Surgery 07/31/22 Real Estate Services Coordinator Relationship Specialty Start Date End Date Kelvin Kohler MD [address] [place] [address] PCP - General Family Medicine 09/14/18 Kelvin Kohler MD [address] [place] [address] PCP - ARNOLDO Attributed Provider - [facility] 06/17/16 06/16/50 Lee Ann Rivas, RN Nurse Navigator Oncology 07/31/22 Jenn Callahan MD [address] [place] [address] Radiation Oncology 07/31/22 Florian Whitt MD [address] [place] [address] Consulting Physician Urologic Surgery 07/31/22 Real Estate Services Coordinator Relationship Specialty Start Date End Date Kelvin Kohler MD [address] [place] [address] PCP - General Family Medicine 09/14/18 Kelvin Kohler MD [address] [place] [address] PCP - ARNOLDO Attributed Provider - [facility] 06/17/16 06/16/50 Lee Ann Rivas, RN Nurse Navigator Oncology 07/31/22 Jenn Callahan MD [address] [place] [address] Radiation Oncology 07/31/22 Florian Whitt MD [address] [place] [address] Consulting Physician Urologic Surgery 07/31/22 Real Estate Services Coordinator Relationship Specialty Start Date End Date Kelvin Kohler MD [address] [place] [address] PCP - General Family Medicine 09/14/18 Kelvin Kohler MD [address] [place] [address] PCP - ARNOLDO Attributed Provider - [facility] 06/17/16 06/16/50 Lee Ann Rivas RN Nurse Navigator Oncology 07/31/22 Jenn Callahan MD [address] [place] [address] Radiation Oncology 07/31/22 Florian Whitt MD [address] [place] [address] Consulting Physician Urologic Surgery 07/31/22 Real Estate Services Coordinator Relationship Specialty Start Date End Date Kelvin Kohler MD [address] [place] [address] PCP - General Family Medicine 09/14/18 Kelvin Kohler MD [address] [facility] [place] [address] PCP - ARNOLDO Attributed Provider - [facility] 06/17/16 06/16/50 Lee Ann Rivas RN Nurse Navigator Oncology 07/31/22 Jenn Callahan MD [address] [place] [address] Radiation Oncology 07/31/22 Florian Whitt MD [address] [place] [address] Consulting Physician Urologic Surgery 07/31/22 Real Estate Services Coordinator Relationship Specialty Start Date End Date Kelvin Kohler MD [address] [place] [address] PCP - General Family Medicine 09/14/18 Kelvin Kohler MD [address] [place] [address] PCP - ARNOLDO Attributed Provider - [facility] 06/17/16 06/16/50 Lee Ann Rivas RN Nurse Navigator Oncology 07/31/22 Jenn Callahan MD [address] [facility] [place] [address] Radiation Oncology 07/31/22 Florian Whitt MD [address] [place] [address] Consulting Physician Urologic Surgery 07/31/22 Real Estate Services Coordinator Relationship Specialty Start Date End Date Kelvin Kohler MD [address] [place] [address] PCP - General Family Medicine 09/14/18 Kelvin Kohler MD [address] [place] [address] PCP - ARNOLDO Attributed Provider - [facility] 06/17/16 06/16/50 Lee Ann Rivas RN Nurse Navigator Oncology 07/31/22 Jenn Callahan MD [address] [facility] [place] [address] Radiation Oncology 07/31/22 Florian Whitt MD [address] [place] [address] Consulting Physician Urologic Surgery 07/31/22 Real Estate Services Coordinator Relationship Specialty Start Date End Date Kelvin Kohler MD [address] [place] [address] PCP - General Family Medicine 09/14/18 Kelvin Kohler MD [address] [place] [address] PCP - ARNOLDO Attributed Provider - [facility] 06/17/16 06/16/50 Lee Ann Rivas RN Nurse Navigator Oncology 07/31/22 Jenn Callahan MD [address] [place] [address] Radiation Oncology 07/31/22 Florian Whitt MD [address] [place] [address] Consulting Physician Urologic Surgery 07/31/22 Real Estate Services Coordinator Relationship Specialty Start Date End Date Kelvin Kohler MD [address] [place] [address] PCP - General Family Medicine 09/14/18 Kelvin Kohler MD [address] [place] [address] PCP - ARNOLDO Attributed Provider - [facility] 06/17/16 06/16/50 Lee Ann Rivas RN Nurse Navigator Oncology 07/31/22 Jenn Callahan MD [address] [place] [address] Radiation Oncology 07/31/22 Florian Whitt MD [address] [place] [address] Consulting Physician Urologic Surgery 07/31/22 Real Estate Services Coordinator Relationship Specialty Start Date End Date Kelvin Kohler MD [address] [facility] [place] [address] PCP - General Family Medicine 09/14/18 Kelvin Kohler MD [address] [facility] [place] [address] PCP - ARNOLDO Attributed Provider - [facility] 06/17/16 06/16/50 Lee Ann Rivas, RN Nurse Navigator Oncology 07/31/22 Jenn Callahan MD [address] [facility] [place] [address] Radiation Oncology 07/31/22 Florian Whitt MD [address] [place] [address] Consulting Physician Urologic Surgery 07/31/22 Real Estate Services Coordinator Relationship Specialty Start Date End Date Kelvin Kohler MD [address] [place] [address] PCP - General Family Medicine 09/14/18 Kelvin Kohler MD [address] [place] [address] PCP - ARNOLDO [facility] 06/17/16 06/16/50 Lee Ann Rivas, RN Nurse Navigator Oncology 07/31/22 Jenn Callahan MD [address] [place] [address] Radiation Oncology 07/31/22 Florian Whitt MD [address] [place] [address] Consulting Physician Urologic Surgery 07/31/22 Real Estate Services Coordinator Relationship Specialty Start Date End Date Kelvin Kohler MD [address] [place] [address] PCP - General Family Medicine 09/14/18 Kelvin Kohler MD [address] [place] [address] PCP - ARNOLDO Attributed Provider - [facility] 06/17/16 06/16/50 Lee Ann Rivas RN Nurse Navigator Oncology 07/31/22 Jenn Callahan MD [address] [place] [address] Radiation Oncology 07/31/22 Florian Whitt MD [address] [place] [address] Consulting Physician Urologic Surgery 07/31/22 Real Estate Services Coordinator Relationship Specialty Start Date End Date Kelvin Kohler MD [address] [place] [address] PCP - General Family Medicine 09/14/18 Kelvin Kohler MD [address] [place] [address] PCP - ARNOLDO Attributed Provider - [facility] 06/17/16 06/16/50 Lee Ann Rivas, EARL Nurse Navigator Oncology 07/31/22 Jenn Callahan MD [address] [place] [address] Radiation Oncology 07/31/22 Florian Whitt MD [address] [place] [address] Consulting Physician Urologic Surgery 07/31/22 Real Estate Services Coordinator Relationship Specialty Start Date End Date Kelvin Kohler MD [address] [place] [address] PCP - General Family Medicine 09/14/18 Kelvin Kohler MD [address] [facility] [place] [address] PCP - ARNOLDO Attributed Provider - [facility] 06/17/16 06/16/50 Lee Ann Rivas, EARL Nurse Navigator Oncology 07/31/22 Jenn Callahan MD [address] [place] [address] Radiation Oncology 07/31/22 Florian Whitt MD [address] [place] [address] Consulting Physician Urologic Surgery 07/31/22 Real Estate Services Coordinator Relationship Specialty Start Date End Date Kelvin Kohler MD [address] [place] [address] PCP - General Family Medicine 09/14/18 Kelvin Kohler MD [address] [facility] [place] [address] PCP - ARNOLDO Attributed Provider - [facility] 06/17/16 06/16/50 Lee Ann Rivas, RN Nurse Navigator Oncology 07/31/22 Jenn Callahan MD [address] [place] [address] Radiation Oncology 07/31/22 Florian Whitt MD [address] [place] [address] Consulting Physician Urologic Surgery 07/31/22 Real Estate Services Coordinator Relationship Specialty Start Date End Date Kelvin Kohler MD [address] [place] [address] PCP - General Family Medicine 09/14/18 Kelvin Kohler MD [address] [facility] [place] [address] PCP - ARNOLDO Attributed Provider - [facility] 06/17/16 06/16/50 Lee Ann Rivas, EARL Nurse Navigator Oncology 07/31/22 Jenn Callahan MD [address] [place] [address] Radiation Oncology 07/31/22 Florian Whitt MD [address] [place] [address] Consulting Physician Urologic Surgery 07/31/22 Real Estate Services Coordinator Relationship Specialty Start Date End Date Kelvin Kohler MD [address] [place] [address] PCP - General Family Medicine 09/14/18 Kelvin Kohler MD [address] [facility] [place] [address] PCP - ARNOLDO Attributed Provider - [facility] 06/17/16 06/16/50 Lee Ann Rivas RN Nurse Navigator Oncology 07/31/22 Jenn Callahan MD [address] [facility] [place] [id number] Radiation Oncology 07/31/22 Florian Whitt MD [address] [place] [address] Consulting Physician Urologic Surgery 07/31/22 Real Estate Services Coordinator Relationship Specialty Start Date End Date Kelvin Kohler MD [address] [place] [id number] PCP - General Family Medicine 09/14/18 Kelvin Kohler MD [address] [place] [address] PCP - ARNOLDO Attributed Provider - [facility] 06/17/16 06/16/50 Lee Ann Rivas, RN Nurse Navigator Oncology 07/31/22 Jenn Callahan MD [address] [facility] [place] [address] Radiation Oncology 07/31/22 Florian Whitt MD [address] [place] [address] Consulting Physician Urologic Surgery 07/31/22 Real Estate Services Coordinator Relationship Specialty Start Date End Date Kelvin Kohler MD [address] [place] [address] PCP - General Family Medicine 09/14/18 Kelvin Kohler MD [address] [place] [address] PCP - ARNOLDO Attributed Provider - [facility] 06/17/16 06/16/50 Lee Ann Rivas, RN Nurse Navigator Oncology 07/31/22 Jenn Callahan MD [address] [place] [address] Radiation Oncology 07/31/22 Florian Whitt MD [address] [place] [address] Consulting Physician Urologic Surgery 07/31/22 Real Estate Services Coordinator Relationship Specialty Start Date End Date Kelvin Kohler MD [address] [place] [address] PCP - General Family Medicine 09/14/18 Lee Ann Rivas RN Nurse Navigator Oncology 07/31/22 Jenn Callahan MD [address] [place] [address] Radiation Oncology 07/31/22 Florian Whitt MD [address] [place] [address] Consulting Physician Urologic Surgery 07/31/22 Real Estate Services Coordinator Relationship Specialty Start Date End Date Kelvin Kohler MD [address] [place] [address] PCP - General Family Medicine 07/26/23 Real Estate Services Coordinator Relationship Specialty Start Date End Date Kelvin Kohler MD [address] [facility] [address] PCP - General Family Medicine 07/26/23 Real Estate Services Coordinator Relationship Specialty Start Date End Date Kelvin Kohler MD [address] [facility] [place] [address] PCP - General Family Medicine 07/26/23 Real Estate Services Coordinator Relationship Specialty Start Date End Date Kelvin Kohler MD [address] [place] [address] PCP - General Family Medicine 09/14/18 Lee Ann Rivas, RN Nurse Navigator Oncology 07/31/22 Jenn Callahan MD [address] [facility] [place] [address] Radiation Oncology 07/31/22 Florian Whitt MD [address] [place] [address] Consulting Physician Urologic Surgery 07/31/22 Real Estate Services Coordinator Relationship Specialty Start Date End Date Keny Reddy DO [address] [facility] [place] [address] PCP - General Internal Medicine 02/27/24 Real Estate Services Coordinator Relationship Specialty Start Date End Date Keny Reddy DO [address] [facility] [place] [address] PCP - General Internal Medicine 02/27/24 Real Estate Services Coordinator Relationship Specialty Start Date End Date Keny eRddy DO [address] [facility] [place] [address] PCP - General Internal Medicine 02/27/24 Real Estate Services Coordinator Relationship Specialty Start Date End Date Keny Reddy DO [address] [facility] [place] [address] PCP - General Internal Medicine 02/27/24 Real Estate Services Coordinator Relationship Specialty Start Date End Date Keny Reddy DO [address] [facility] [place] [address] PCP - General Internal Medicine 02/27/24 Real Estate Services Coordinator Relationship Specialty Start Date End Date Je Lira PA-C [address] [facility], [place] [address] [place] [id number] PCP - General Family Medicine 06/29/24 Real Estate Services Coordinator Relationship Specialty Start Date End Date Je Lira PA-C [address] [facility], [place] [address] [place] [address] PCP - General Family Medicine 06/29/24 Real Estate Services Coordinator Relationship Specialty Start Date End Date Je Lira PA-C [address] [facility], [place] [address] [place] [address] PCP - General Family Medicine 06/29/24 Real Estate Services Coordinator Relationship Specialty Start Date End Date Je Lira PA-C [address] [facility], [place] [address] [place] [address] PCP - General Family Medicine 06/29/24 Real Estate Services Coordinator Relationship Specialty Start Date End Date Je Lira [address] [facility], [place] [address] [place] [address] PCP - General 10/21/24 Real Estate Services Coordinator Relationship Specialty Start Date End Date Je Lira [address] [facility], [place] [address] [place] [address] PCP - General 10/21/24 Real Estate Services Coordinator Relationship Specialty Start Date End Date Je Lira [address] [facility], [place] [address] [place] [address] PCP - General 10/21/24 Real Estate Services Coordinator Relationship Specialty Start Date End Date Je Lira [address] [facility], [place] [address] [place] [address] PCP - General 10/21/24 Real Estate Services Coordinator Relationship Specialty Start Date End Date Je Lira [address] [facility], [place] [address] [place] [address] PCP - General 10/21/24 Real Estate Services Coordinator Relationship Specialty Start Date End Date Je Lira [address] [facility], [place] [address] [place] [address] PCP - General 10/21/24 Real Estate Services Coordinator Relationship Specialty Start Date End Date Je Lira PA-C [address] [facility], [place] [address] [place] [address] PCP - General Family Medicine 06/29/24 Real Estate Services Coordinator Relationship Specialty Start Date End Date Je iLra PA-C [address] [facility], [place] [address] [place] [address] PCP - General Family Medicine 06/29/24 Real Estate Services Coordinator Relationship Specialty Start Date End Date Je Lira [address] [facility], [place] [address] [place] [address] PCP - General 10/21/24 Real Estate Services Coordinator Relationship Specialty Start Date End Date Je Lira [address] [facility], [place] [address] [place] [address] PCP - General 10/21/24 Real Estate Services Coordinator Relationship Specialty Start Date End Date Je Lira PA-C [address] [facility], [place] [address] [place] [address] PCP - General Family Medicine 06/29/24 Real Estate Services Coordinator Relationship Specialty Start Date End Date Je Lira [address] [facility], [place] [address] [place] [address] PCP - General 10/21/24 Scheduled Active and Recently Administ ered Medications (unrecognized section and content) Medication Order 04/21/2022 04/22/2022 04/23/2022 amLODIPine (NORVASC) tablet 5 mg 5 mg, Oral, Daily, First dose on 04/22/22 at 1800 1728 (Given - Provider: Gisselle Guo, EARL) 0836 (Given - Provider: Kenyatta Johnson RN) insulin lispro (AdmeLOG,HumaLOG) injection 0-30 Units (CANCELED) 0-30 Units, Subcutaneous, 3 times daily before meals, First dose on 04/21/22 at 0730, Dose should be given 10-15 minutes before a meal. If poor oral intake, nausea or blood glucose value < 80 before meal, give of the dose (rounded up to nearest unit) immediately after meal completed. If patient skipping meal, hold base prandial dose and continue to use corrective insulin as ordered. Once diet resumed, total base prandial + corrective doses may be given., Prandial Insulin Dosing Method: NO Prandial Dose - Corrective Scale ONLY, Corrective Insulin Regimen (select desired scale to cover BG result): Normal Sensitivity Scale, For Downtime Calculator, use: Insulin SC MEALtime PREprandial 0849 (Given - Provider: Kendy Dumont LPN)1130 (Not Given - Provider: Kendy Dumont LPN - Reason: Other - Comment: order discontinued) potassium chloride SA (K-DUR,KLOR-CON) CR tablet 20 mEq (COMPLETED) 20 mEq, Oral, Every 4 hours, First dose on 04/22/22 at 0900, For 3 doses, Give potassium chloride CR tablet 20 mEq every 4 hours x 3 doses for a total dose of 60 mEq DO NOT CRUSH OR CHEW (if instructed may dissolve tablet(s) in liquid) DO NOT ADMINISTER DISSOLVED TABLET VIA SURGICALLY PLACED TUBE OR TUBE less than 14 Stateless. To administer dissolved tablet(s) mix with 4 ounces of water over 2-3 minutes, stir for 30 seconds prior to administration; rinse dosing cup and administer residual medication to ensure full dose given 0929 (Given - Provider: Gisselle Guo, EARL)1258 (Given - Provider: Gisselle Guo, EARL)1728 (Given - Provider: Gisselle Guo, EARL) tamsulosin (FLOMAX) 24 hr capsule 0.4 mg 0.4 mg, Oral, After evening meal, First dose on Sat04/20/22 at 1845, DO NOT CRUSH OR CHEW. Give 30 minutes after the same meal daily. Monitor for orthostasis due to potential risk of syncope. 184 (Given - Provider: Kendy Dumont LPN) 1728 (Given - Provider: Gisselle Guo, EARL) Continuous Medication Order 04/21/2022 04/22/2022 04/23/2022 sodium chloride 0.45% (HALF SALINE) infusion 50 mL/hr, Intravenous, Continuous, Starting on 04/21/22 at 1500 1839 (New Bag - Provider: Kendy Dumont LPN) 0354 (New Bag - Provider: Naren Parker LPN)1107 (New Bag - Provider: Kendy Dumont LPN)1214 (Rate/Dose Change - Provider: Gisselle Guo, RN)1354 (Restarted - Provider: Gisselle Guo, RN)2115 (Stopped - Provider: Gaby Peters, RN)2116 (New Bag - Provider: Gaby Peters, RN) 171 (Not Given - Provider: Eliazar Mora RN - Reason: Other - Comment: pt going home) PRN Medication Order 04/21/2022 04/22/2022 04/23/2022 acetaminophen (TYLENOL) tablet 650 mg 650 mg, Oral, Every 6 hours PRN, mild pain, Starting on 04/21/22 at 2000 2009 (Given - Provider: Naren Parker LPN) 2113 (Given - Provider: Gaby Peters, EARL) 025 (Given - Provider: Gaby Peters, EARL) hydrALAZINE (APRESOLINE) injection 10 mg 10 mg, Intravenous, Every 6 hours PRN, >160 SBP, Starting on Sat04/20/22 at 1922 2114 (Given - Provider: Gaby Peters, EARL) ipratropium-albuteroL (DUO-NEB) 0.5-2.5 mg/3 ml nebulizer solution 3 mL 3 mL, Inhalation, Every 4 hours PRN (RT), shortness of breath, Starting on 04/21/22 at 0224 labetaloL (NORMODYNE) injection 20 mg 20 mg, Intravenous, Every 4 hours PRN, >160 SBP, Starting on Sat04/20/22 at 2036 0858 (Not Given - Provider: Elsi Denis RN - Reason: Other - Comment: BP recheck is 156/83) 0007 (Given - Provider: Ruba Carvalho RN) naloxone (NARCAN) injection 0.1 mg(Linked Group 1) 0.1 mg, Intravenous, As needed, opioid reversal, For respiratory rate less than or equal to 8 per minute., Starting on Sat04/20/22 at 2052, Mix nalOXone (NARCAN) 0.4 mg (1mL) with 9 mL of Normal Saline to total 10 mL. Administer 0.1 mg (2.5mL) IV Push every 2 minutes until respiratory rate is 10 or greater. naloxone (NARCAN) injection 0.4 mg(Linked Group 1) 0.4 mg, Intravenous, As needed, opioid reversal, patient is pulseless, breathless, and unresponsive, Starting on Sat04/20/22 at 2051, Call a code first, then administer naloxone dose undiluted IV Push over 30 seconds. Linked Groups Order Group 1: naloxone (NARCAN) injection 0.1 mgJump to med 0.1 mg, Intravenous, As needed, opioid reversal, For respiratory rate less than or equal to 8 per minute., Starting on Sat04/20/22 at 2051
Mix nalOXone (NARCAN) 0.4 mg (1mL) with 9 mL of Normal Saline to total 10 mL. Administer 0.1 mg (2.5mL) IV Push every 2 minutes until respiratory rate is 10 or greater.
And Notify physician (CANCELED) STAT, Until discontinued, Starting on Sat04/20/22 at 2052, Until Specified
Respiratory rate less than: 8
For respiratory rate less than or equal to 8, notify physician and/or appropriate staff for additional orders. And naloxone (NARCAN) injection 0.4 mgJump to med 0.4 mg, Intravenous, As needed, opioid reversal, patient is pulseless, breathless, and unresponsive, Starting on Sat04/20/22 at 2051
Call a code first, then administer naloxone dose undiluted IV Push over 30 seconds.
Scheduled Medication Order 05/03/2024 05/04/2024 05/05/2024 acetaminophen (Tylenol) tablet 975 mg (COMPLETED) 975 mg, oral, Once, On Sat05/05/24 at 1015, For 1 dose, Preprocedure, Administer with small amount of water preoperatively., If ordered PRN for pain, nurse is permitted to administer this medication for higher pain scores based on patient preference? Yes 1014 (Given - Provid er: Irma Hernandez RN) dexAMETHasone (PF) (Decadron) injection 10 mg (COMPLETED) 10 mg, intravenous, Once, On Sat05/05/24 at 1015, For 1 dose, Preprocedure 1026 (Given - Provid er: Irma Hernandez RN) famotidine PF (Pepcid) injection 20 mg (COMPLETED) 20 mg, intravenous, Administer over 2 Minutes, Once, On Sat05/05/24 at 1015, For 1 dose, Preprocedure 1028 (Given - Provid er: Irma Hernandez RN) midazolam (Versed) injection 2 mg (COMPLETED) 2 mg, intravenous, Once, On Sat05/05/24 at 1015, For 1 dose, Preprocedure 1034 (Given - Provid er: Irma Hernandez RN) ondansetron (Zofran) injection 4 mg (COMPLETED) 4 mg, intravenous, Once, On Sat05/05/24 at 1015, For 1 dose, Preprocedure, When administering via IV Push, administer over 3-5 minutes. 1031 (Given - Provid er: Irma Hernandez RN) phenazopyridine (Pyridium) tablet 200 mg (COMPLETED) 200 mg, oral, Once, On Sat05/05/24 at 1315, For 1 dose, Recovery & On Unit, May discolor urine (orange). 1258 (Given - Provid er: Kelly Lombardo RN) Continuous Medication Order 05/03/2024 05/04/2024 05/05/2024 lactated Ringer's infusion 20 mL/hr, intravenous, Continuous, Starting on Sat05/05/24 at 1015, For 1 day, Preprocedure 1015 (Due) lactated Ringer's infusion 50 mL/hr, intravenous, Continuous, Starting on Sat05/05/24 at 1215, For 1 day, Recovery (only) 1215 (Due) lactated Ringer's infusion 20 mL/hr, intravenous, Continuous, Starting on Sat05/05/24 at 1015 1026 (New Bag - Prov ider: Irma Hernandez RN)1115 (Continued by Anesthesia - Provider: Eliazar Plascencia DO)1155 (Anesthesia Volume Adjustment - Provider: Eliazar Plascencia DO)1403 (Stopped - Provider: Kelly Lombardo RN) PRN Medication Order 05/03/2024 05/04/2024 05/05/2024 HYDROmorphone (Dilaudid) injection 0.5 mg 0.5 mg, intravenous, Every 5 min PRN, pain moderate (4-6), first line, Starting on Sat05/05/24 at 1158, Recovery (only), Max total of 4 mg regardless of dose. 1200 (Given - Provid er: Sujatha Salvador RN)1216 (Given - Provider: Sujatha Salvador RN) HYDROmorphone (Dilaudid) injection 0.5 mg 0.5 mg, intravenous, Every 5 min PRN, pain severe (7-10), first line, Starting on Sat05/05/24 at 1158, Recovery (only), Max total of 4 mg regardless of dose. ondansetron (Zofran) injection 4 mg 4 mg, intravenous, Once as needed, nausea/vomiting, second line, Starting on Sat05/05/24 at 1158, For 1 dose, Recovery (only), When administering via IV Push, administer over 3-5 minutes. oxyCODONE (Roxicodone) immediate release tablet 5 mg 5 mg, oral, Every 4 hours PRN, pain mild (1-3), first line, Starting on Sat05/05/24 at 1158, Recovery (only), When able to take oral medications., If ordered PRN for pain, nurse is permitted to administer this medication for higher pain scores based on patient preference? Yes 1258 (Given - Provid er: Kelly Lombardo RN) oxygen (O2) therapy inhalation, Continuous PRN - O2/gases, other, Starting on Sat05/05/24 at 1158, Recovery (only), Device: Simple Face Mask, Rate in Liters per minute: 6 LPM, Keep O2 Sat Above: 92% promethazine (Phenergan) 6.25 mg in sodium chloride 0.9% 50 mL IV 6.25 mg, intravenous, Administer over 15 Minutes, Once as needed, Nausea/vomiting first line, Starting on Sat05/05/24 at 1158, For 1 dose, Recovery (only) Scheduled Medication Order 12/05/2024 12/06/2024 12/07/2024 acetaminophen (Tylenol) tablet 1,000 mg 1,000 mg, Oral, Every 8 hours, First dose on Sat12/02/24 at 1715, Maximum dose of acetaminophen is 4000 mg from all sources in 24 hours. 0141 (Not Given - Provider: Annette Renee RN - Reason: Patient/family refused)0856 (Given - Provider: Evelyn Santana RN)1724 (Given - Provider: Evelyn Santana RN) 0145 (Not Given - Provider: Annette Renee RN - Reason: Patient/family refused)0802 (Given - Provider: Evelyn Santana RN)1720 (Given - Provider: Evelyn Santana RN) 0134 (Not Given - Provider: Annette Renee RN - Reason: Patient/family refused)0817 (Given - Provider: Arturo Ray, EARL) amLODIPine (Norvasc) tablet 2.5 mg 2.5 mg, Oral, Daily, First dose on Cherie 12/03/24 at 0800, Phase II/On Unit 0856 (Given - Provider: Evelyn Santana RN) 0803 (Given - Provider: Evelyn Santana RN) 0817 (Given - Provider: Arturo Ray, EARL) bisacodyl (Dulcolax) suppository 10 mg 10 mg, Rectal, Daily, First dose on 12/05/24 at 1545 1701 (Not Given - Provider: Evelyn Santana RN - Reason: Patient/family refused) 0802 (Given - Provider: Evelyn Santana RN) 0818 (Not Given - Provider: Arturo Ray RN - Reason: Patient/family refused) gabapentin (Neurontin) capsule 300 mg 300 mg, Oral, 3 times daily, First dose on Sat12/02/24 at 1600, Phase II/On Unit 0856 (Given - Provider: Evelyn Santana RN)1300 (Given - Provider: Evelyn Santana RN)2054 (Given - Provider: Annette Renee RN) 0803 (Given - Provider: Evelyn Santana RN)1425 (Given - Provider: Evelyn Santana RN)2034 (Given - Provider: Annette Renee RN) 0817 (Given - Provider: Arturo Ray RN)1400 (Canceled Entry - Provider: Automatic Discharge Provider - Comment: Automatically canceled at discontinue of medication order) magnesium hydroxide (Milk of Magnesia) 400 MG/5ML suspension 30 mL 30 mL, Oral, 2 times daily, First dose on Sat12/02/24 at 1600, Phase II/On Unit, 1st line for treatment of constipation - give scheduled if no bowel movement in past 24 hours 0534 (Not Given - Provider: Annette Renee RN - Reason: Patient/family refused)1525 (Not Given - Provider: Evelyn Santana RN - Reason: Patient/family refused) 0539 (Not Given - Provider: Annette Renee RN - Reason: Patient/family refused)1511 (Not Given - Provider: Evelyn Santana RN - Reason: Patient/family refused) 0522 (Not Given - Provider: Annette Renee RN - Reason: Patient/family refused) potassium chloride CR (Klor-Con M10) ER tablet 15 mEq 15 mEq, Oral, Daily, First dose on Sat12/02/24 at 1600, Phase II/On Unit, Best given with food and plenty of water to minimize gastric irritation. Do not crush or chew. 0856 (Given - Provider: Evelyn Santana RN) 0803 (Given - Provider: Evelyn Santana RN) 0903 (Given - Provider: Arturo Ray, EARL) sodium chloride 0.9% (NS) flush 10 mL 10 mL, IntraVENous, Every 12 hours scheduled (2 times per day), First dose on Sat12/02/24 at 2100, Phase II/On Unit 0856 (Given - Provider: Evelyn Santana RN)2053 (Given - Provider: Annette Renee RN) 0803 (Given - Provider: Evelyn Santana RN)2115 (Given - Provider: Annette Renee RN) 0820 (Given - Provider: Arturo Ray, RN) tamsulosin (Flomax) 24 hr capsule 0.4 mg 0.4 mg, Oral, Daily, First dose on Cherie 12/03/24 at 0800, Phase II/On Unit, Do not crush, chew, or split. 0856 (Given - Provider: Evelyn Santana RN) 0803 (Given - Provider: Evelyn Santana RN) 0817 (Given - Provider: Arturo Ray, RN) Continuous Medication Order 12/05/2024 12/06/2024 12/07/2024 lactated Ringer's (LR) infusion 50 mL/hr, IntraVENous, Continuous, Starting on Sat12/02/24 at 0900, Preprocedure, Upon admission to sameday - please start iv if patient does not have iv access. Use 500ml NS for patients on dialysis. PRN Medication Order 12/05/2024 12/06/2024 12/07/2024 naloxone (Narcan) injection 0.4 mg 0.4 mg, IntraVENous, PRN, opioid reversal, Starting on Sat12/02/24 at 1555, Phase II/On Unit, For oversedation/difficult to rouse, pinpoint pupils, RR < 8; notify primary team superintendent plant protection if used ondansetron (Zofran) injection 4 mg(Linked Group 1) 4 mg, IntraVENous, Every 6 hours PRN, nausea, vomiting, Starting on Sat12/02/24 at 1555, Phase II/On Unit, 1st Line. Give IV if patient is unable to take orally. If inadequate response within 60 minutes, proceed to next-line agent or contact provider if no further options ordered. ondansetron ODT (Zofran-ODT) disintegrating tablet 4 mg(Linked Group 1) 4 mg, Oral, Every 8 hours PRN, nausea, vomiting, Starting on Sat12/02/24 at 1555, Phase II/On Unit, 1st Line. If inadequate response within 60 minutes, proceed to next-line agent or contact provider if no further options ordered. Patient should allow tablet to dissolve on tongue. Do not remove from blister pack until just before administering. oxyCODONE (Roxicodone) immediate release tablet 10 mg(Linked Group 2) 10 mg, Oral, Every 4 hours PRN, severe pain (7-10), Starting on Sat12/02/24 at 1555, Phase II/On Unit 1248 (Given - Provider: Evelyn Santana RN)1851 (Given - Provider: Evelyn Santana RN)2333 (Given - Provider: Annette Renee RN) 0341 (Given - Provider: Annette Renee RN)0803 (Given - Provider: Evelyn Santana RN)1158 (Given - Provider: Evelyn Santana RN)1547 (Given - Provider: Evelyn Santana RN)2034 (Given - Provider: Annette Renee, RN) 0153 (Given - Provider: Annette Renee RN)0640 (Given - Provider: Annette Renee RN)1032 (Given - Provider: Arturo Ray, EARL) oxyCODONE (Roxicodone) immediate release tablet 5 mg(Linked Group 2) 5 mg, Oral, Every 4 hours PRN, moderate pain (4-6), Starting on Sat12/02/24 at 1555, Phase II/On Unit 1248 (See Alternative - Provider: Evelyn Santana RN)1851 (See Alternative - Provider: Evelyn Santana RN)2333 (See Alternative - Provider: Annette Renee RN) 0341 (See Alternative - Provider: Annette Renee RN)0803 (See Alternative - Provider: Evelyn Santana RN)1158 (See Alternative - Provider: Evelyn Santana RN)1547 (See Alternative - Provider: Evelyn Santana RN)2034 (See Alternative - Provider: Annette Renee RN) 0153 (See Alternative - Provider: Annette Renee RN)0640 (See Alternative - Provider: Annette Renee RN)1032 (See Alternative - Provider: Arturo Ray, EARL) sodium chloride 0.9 % infusion 5-250 mL/hr, IntraVENous, PRN, if patient receiving piggyback infusions and maintenance fluids are not ordered OR KVO fluids to protect IV site / prevent frequent line interruptions/ long duration, Starting on Sat12/02/24 at 1555, Phase II/On Unit, For piggyback infusion, administer at same rate as piggyback for a total of 25 mL. Enter 25 mL into dose field and piggyback rate into rate field of order. If piggyback is infusing at a rate less than 100 mL/hr, enter 25 mL into dose field and 100 mL/hr into rate field of order. For KVO fluids, enter rate of 20 mL/hr or less into rate field of order. sodium chloride 0.9% (NS) flush 10 mL 10 mL, IntraVENous, PRN, line care, Starting on Sat12/02/24 at 1555, Phase II/On Unit, After every IV line use tiZANidine (Zanaflex) tablet 4 mg 4 mg, Oral, Every 8 hours PRN, muscle spasms, Starting on Sat12/02/24 at 1555, Phase II/On Unit 1252 (Given - Provider: Evelyn Santana RN) 1425 (Given - Provider: Evelyn Santana RN) 0820 (Given - Provider: Arturo Ray RN) Linked Groups Order Group 1: ondansetron ODT (Zofran-ODT) disintegrating tablet 4 mgJump to med 4 mg, Oral, Every 8 hours PRN, nausea, vomiting, Starting on Sat12/02/24 at 1555, Phase II/On Unit, 1st Line. If inadequate response within 60 minutes, proceed to next-line agent or contact provider if no further options ordered. Patient should allow tablet to dissolve on tongue. Do not remove from blister pack until just before administering. Or ondansetron (Zofran) injection 4 mgJump to med 4 mg, IntraVENous, Every 6 hours PRN, nausea, vomiting, Starting on Sat12/02/24 at 1555, Phase II/On Unit, 1st Line. Give IV if patient is unable to take orally. If inadequate response within 60 minutes, proceed to next-line agent or contact provider if no further options ordered. Group 2: oxyCODONE (Roxicodone) immediate release tablet 5 mgJump to med 5 mg, Oral, Every 4 hours PRN, moderate pain (4-6), Starting on Sat12/02/24 at 1555, Phase II/On Unit Or oxyCODONE (Roxicodone) immediate release tablet 10 mgJump to med 10 mg, Oral, Every 4 hours PRN, severe pain (7-10), Starting on Sat12/02/24 at 1555, Phase II/On Unit FOR RECORDS PERTAINING TO PATIENTS WHO ARE OR HAVE BEEN ENROLLED IN A CHEMICAL DEPENDENCY/SUBSTANCEABUSE PROGRAM, SOME INFORMATION MAY BE OMITTED. This clinical summary was aggregated from multiple sources. Caution should be exercised in using it in the provision of clinical care. This summary normalizes information from multiple sources, and as a consequence, information in this document may materially change the coding, format and clinical context of patient data. In addition, data may be omitted in some cases. CLINICAL DECISIONS SHOULD BE BASED ON THE PRIMARY CLINICAL RECORDS. [facility]. provides no warranty or guarantee of the accuracy or completeness of information in this document.
[2024-12-27] MEDS: BACITRACIN 15 GM Tube 1 APPLIC TOPICAL (20:18)
--- NOTE | 2024-12-27 20:54 | HP.PCM_ITS ---
HPI - General General Date of Admission: 12/27/24 Date of Service: 12/28/24 Chief Complaint: Here for rehabilitation. HPI Narrative GINGER WELDON, is a 64 Male who presents with followin12/08/2024 Admit [facility] with acute limb ischemia. Recent L4-S1 decompression with placement of pedicle screws 12/02/2024. Right lower extremity pain, vascular consulted. Right lower extremity pain, weakness worsened. 12/06/2024 Pain unbearable. Unable to move right ankle, right toes with right lateral leg numbness. New onset right foot drop, Doppler no signals right lower extremity. 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 12/08/2024 To OR bilateral aortoiliac thrombectomies, right fem/pop/tib thrombectomies, possible iliac stents, possible fem-fem bypass, possible ax-fem, possible fasciotomies, on heparin drip. 12/13/2024 Right common femoral arteriotomy, proximal and distal embolectomy. 12/17/2024 Iliac angioplasty with stent. Right AKA performed. 12/25/2024 Back spasms better, right foot sensation improved. Doing better. WBC okay. DAPT for iliac stents. Antibiotics total of 7 days. 12/27/2024 Admit TCU with debility, here for rehabilitation, strengthening, prior to discharge home with . [facility] Medical History (Updated 12/27/24 @ 21:[address] Subhash Avery MD) Tobacco abuse BPH (benign prostatic hyperplasia) Lumbar spinal stenosis Bernard's palsy Essential (primary) hypertension History of prostate cancer Acute lower extremity ischemia Debility Home Medications ?Medication ?Instructions ?Recorded ?Last Taken ?Type acetaminophen 325 mg tablet 650 mg PO Q6H PRN pain (sc yg 12/27/24 Unknown History score 1-4) amlodipine 2.5 mg tablet 2.5 mg PO DAILY blood pressu re 12/27/24 12/27/24 History aspirin 81 mg tablet 81 mg PO DAILY heart health 12/27/24 12/27/24 History atorvastatin 20 mg tablet (Lipitor) 20 mg PO QHS paco sterol 12/27/24 12/26/24 History bacitracin 500 unit/gram topical 1 applic topical TID affected area 12/27/24 12/27/24 History ointment clopidogrel 75 mg tablet 75 mg PO DAILY antiplatlet 0 12/27/24 12/27/24 History cyclobenzaprine 5 mg tablet 5 mg PO TID muscle spasms 12/27/24 12/27/24 History gabapentin 300 mg capsule 600 mg PO TID nerve pain 12/27/24 History lidocaine 4 % topical patch 1 patch topical DAILY pain 12/27/24 12/26/24 History multivitamin 1 tab PO DAILY supplement Unknown History nicotine 7 mg/24 hr daily 1 patch transdermal DAILY sm oking 12/27/24 Unknown History transdermal patch cessation oxycodone 5 mg tablet 5 mg PO Q4H PRN pain (scale score 12/27/24 12/27/24 History 4-6) sennosides 8.6 mg tablet (senna) 8.6 mg PO QHS constip ation 12/27/24 12/25/24 History tamsulosin 0.4 mg capsule 0.4 mg PO DAILY urination 12/27/24 History Allergy/AdvReac Type Severity Reaction Status Date / Time No Known Allergies Allergy Verified 12/27/24 19:43 Surgical History (Updated 12/27/24 @ 21:[address] Subhash Avery MD) Status post insertion of iliac artery stent History of bladder surgery Hx of decompressive lumbar laminectomy History of transurethral resection of prostate Status post above-knee amputation of right lower extremity Social History (Updated 12/27/24 @ 21:[address] Subhash Avery MD) household members: spouse Smoking Status: Current every day smoker tobacco type: cigarettes Smoking packs per day: 0.5 Smoking cigarettes per day: 10.0 alcohol intake: never substance use type: does not use ROS Constitutional Constitutional: Reports weakness; Denies chills, fever(s) or weight gain ENT HEENT: Denies headache(s), nasal congestion or nasal discharge Cardiovascular Cardiovascular: Denies chest pain or palpitations Respiratory/Chest Respiratory/Chest: Denies cough, excessive phlegm production or shortness of breath with exertion Gastrointestinal Gastrointestinal: Denies abdominal pain, nausea or vomiting Genitourinary Genitourinary: Denies dysuria Musculoskeletal Musculoskeletal: Denies joint pain or joint swelling Integumentary Integumentary: Denies rash or wounds Neurologic Neurologic: Denies focal weakness, numbness or tingling Psychiatric Psychiatric: Denies anxiety, auditory hallucinations, depression, homicidal ideation or suicidal ideation Vital Signs Vital Signs Vital Signs: 12/27/24 16:40 12/27/24 17:34 12/27/24 20:27 Temperature 98.1 F Temperature Source Temporal Pulse Rate 78 Pulse Rhythm Regular Pulse Strength Normal (2+) Normal (2+) Respiratory Rate 17 Respiratory Effort Normal Non-Labored Respiratory Depth Normal Respiratory Pattern Normal Blood Pressure 111/66 Blood Pressure Mean 81 Blood Pressure Source Monitor Pulse Ox 96 Oxygen Delivery Method Room Air Room Air Physical Exam Const alert General Appearance: cooperative HEENT normocephalic Eyes PERRL and EOMs intact bilaterally Neck supple, no JVD and no carotid bruits Resp normal respiratory effort, normal air movement and clear to auscultation bilaterally Cardio regular rate and regular rhythm GI normal to inspection, nondistended, normoactive bowel sounds, non-tender and non-distended Extremity normal capillary refill Extremity Narrative: Right AKA. General Extremity: Negative for edema Skin no rashes or lesions noted General Skin Exam: no breakdown Psych affect normal Appearance: appropriate Results Lab / Micro Data 12/28/24 05:03 12/28/24 05:03 Assessment & Plan Assessment/Plan (1) Debility: (2) Acute lower extremity ischemia: (3) Status post above-knee amputation of right lower extremity: (4) History of prostate cancer: (5) Essential (primary) hypertension: (6) Bernard's palsy: (7) Lumbar spinal stenosis: (8) BPH (benign prostatic hyperplasia): (9) Tobacco abuse: PLAN: Plan 64 year old male with below past medical history hospitalized for acute right lower extremity ischemia, underwent multiple unsuccessful revascularizations, resulted in right above knee amputation, admitted to TCU with debility, here for rehabilitation, strengthening, prior to discharge home with . * Debility - PT/OT. * Pain - Tylenol 1000mg q6 prn pain (1-4), Oxycodone 4mg q4 prn pain (5-10), Lidoderm 1 patch td daily. * Bowel - senna/colace 2 tablets bid, Magnesium citrate 300mL daily prn. * Adult immunization - Administer pneumonia vaccine, covid vaccine, flu vaccine as appropriate. * DVT prophylaxis - on DAPT. * Muscle spasm - Flexeril 5mg tid thru 01/06/2025. * Hypertension - Amlodipine 2.5mg daily. * PAOD - Aspirin 81mg daily, Plavix 75mg daily. * Hyperlipidemia - Atorvastatin 20mg qhs. * Skin irritation - Bacitracin ointment topical tid. * Neuropathic pain - Gabapentin 600mg tid. * Nutrition - MVI 1 tablet daily. * Tobacco abuse - Nicotine patch 7mg td daily. * Tinea Corporis - Nystatin powder topical bid. * BPH - Tamsulosin 0.4mg daily. * Insomnia - Add Melatonin 10mg qhs.
[2024-12-28] MEDS: BACITRACIN 15 GM Tube 1 APPLIC TOPICAL ×3 (05:42→21:03)
[2024-12-28 05:50] LABS: Anion Gap 11 (5-15); BUN 13 mg/dL (4-19); BUN/Creat Ratio 17.1 RATIO (10-20); Calcium,Total 8.6 mg/dL (7.6-11.0); Carbon Dioxide 22.4 mmol/L (21.0-32.0); Chloride 107 mmol/L (98-108); Glucose 108 mg/dL (70-99); Potassium 3.8 mmol/L (3.3-5.1)
[2024-12-28 08:56] VITALS: BP 121/62; PULSE 83; RESP 17; TEMP 36.5; O2SAT 94
[2024-12-28] MEDS: Aspirin E.C. 81 MG Tablet PO (09:03)
[2024-12-28] MEDS: Lidocaine 5% Patch 1 PATCH TOPICAL (09:03)
[2024-12-28 09:19] LABS: Hematocrit 28.7 % (40-54); Hemoglobin 8.7 g/dL (13.0-16.5); Mean Corp Hgb Conc 30.3 g/dL (32-36); Mean Corpuscular Volume 96.0 fL (80-94); Mean Platelet Vol. 9.4 fl (6.2-12.0); Platelet Count 606 K/mm3 (150-450); RBC Distribution Width CV 16.0 % (11.6-14.6); RBC Distribution Width SD 55.9 fl (35.1-43.9); Red Blood Count 2.99 M/mm3 (4.6-6.2); White Blood Count 8.1 K/mm3 (4.4-11.0)
[2024-12-28 09:20] LABS: Immature Granulocytes Count 0.040 X10^3/uL (0.0-0.0)
[2024-12-28 10:00] VITALS: PULSE 83
--- NOTE | 2024-12-28 10:36 | NURSING ---
Offered covid vaccine, VIS provided. Resident declines at this time.
--- NOTE | 2024-12-28 11:35 | NURSING ---
Preflight Inspector Note; Activity Asset: Bartolo Mitchell is independent in his choice of daily activities. He prefers in room activities at this time due to his surgery. He will watch tv, use his smartphone and read when not resting. His will visit and bring him items from home he may need or want. . Staff will remind him of weekly activities, offer in room activities and respect his right to say no.
[2024-12-28] MEDS: Tuberculin,Purif.prot.deriv. 50 TU/ML Vial 0.1 ML ID (12:01)
--- NOTE | 2024-12-28 12:44 | NURSING ---
Spoke with Kadi from [facility], she will fax over some information to TCU. Confirmed appt for January 18 in [place].
--- NOTE | 2024-12-28 14:00 | NURSING ---
Addendum entered by Steve Mendoza 12/28/24 14:44: DR. DOBBINS CALLED BACK AND STATED THEY DID NOT HAVE ANY RECORDS OF IMMUNIZATIONS AND CHECKED THE [place] BOARD AND NONE SHOWED UP. RN AWARE. WILL ASK PT AND . Original Note: CALLED FOR UPDATE ON PT IMMUNIZATIONS. NO ANSWER,LEFT MESSAGE. RN AWARE
--- NOTE | 2024-12-28 14:05 | WOUNDNOTE ---
wound photo: sacrum
--- NOTE | 2024-12-28 14:06 | WOUNDNOTE ---
wound photo: right AKA
[2024-12-28 16:00] VITALS: BP 111/70; PULSE 85; RESP 18; TEMP 36.6; O2SAT 95
--- NOTE | 2024-12-28 18:44 | PCM.PN.DRR ---
Documented by User: Olivier Brown 12/28/24 19:55 TCU RX Drug Regimen Review Subjective/Objective Subjective/Objective Subjective: TCU admission note. 64 year old male with below past medical history hospitalized for acute right lower extremity ischemia, underwent multiple unsuccessful revascularizations, resulted in right above knee amputation, admitted to TCU with debility, here for rehabilitation, strengthening, prior to discharge home with . Objective: Allergies No Known Allergies Allergy (Verified 12/27/24 19:43) Current Medications Generic Name Dose Route Start Last Admin Trade Name Freq PRN Reason Stop Dose Admin Acetaminophen 1,000 mg 12/27/24 21:20 Acetaminophen 500 Mg Tablet PO Q6H PRN pain (scale score 1-4) Amlodipine Besylate 2.5 mg 12/28/24 10:00 12/28/24 09:05 Amlodipine 2.5 Mg Tablet PO 2.5 mg DAILY CHASE Administration Protocol Aspirin 81 mg 12/28/24 08:00 12/28/24 09:03 Aspirin E.C. 81 Mg Tablet PO 81 mg BREAKFAST CHASE Administration Atorvastatin Calcium 20 mg 12/27/24 22:00 12/27/24 20:20 Atorvastatin Calcium 20 Mg Tablet PO 20 mg QHS CHASE Administration Bacitracin 1 applic 12/27/24 22:00 12/28/24 17:31 Bacitracin 15 Gm Tube TOPICAL 1 applic TID CHASE Administration Clopidogrel Bisulfate 75 mg 12/28/24 10:00 12/28/24 09:05 Clopidogrel Bisulfate 75 Mg Tablet PO 75 mg DAILY CHASE Administration Cyclobenzaprine HCl 5 mg 12/27/24 22:00 12/28/24 13:54 Cyclobenzaprine Hcl 5 Mg Tablet PO 01/06/25 22:01 5 mg TID CHASE Administration Gabapentin 600 mg 12/27/24 22:00 12/28/24 13:54 Gabapentin 300 Mg Capsule PO 600 mg TID CHASE Administration Lidocaine 1 patch 12/28/24 10:00 12/28/24 09:03 Lidocaine 5% Patch TOPICAL 1 patch DAILY CHASE Administration Magnesium Citrate 300 ml 12/27/24 21:19 Magnesium Citrate 300 Ml PO DAILY PRN Constipation Melatonin 10 mg 12/28/24 22:00 Melatonin 10 Mg Tablet PO QHS CHASE Multivitamins 1 tablet 12/28/24 10:00 12/28/24 09:03 Multivitamins,Therapeutic Tablet PO 1 tablet DAILY CHASE Administration Nicotine 7 mg 12/28/24 10:00 12/28/24 09:05 Nicotine 7 Mg Patch TD Not Given DAILY CHASE Nystatin 1 applic 12/27/24 22:00 12/28/24 12:00 Nystatin Powder 15gm Bottle TOPICAL 1 applic BID CHASE Administration Protocol Oxycodone HCl 5 mg 12/27/24 17:24 12/28/24 17:35 Oxycodone 5 Mg Tablet PO 5 mg Q4H PRN Administration pain (scale score 4-10) Senna/Docusate Sodium 2 tablet 12/27/24 22:00 12/28/24 09:05 Senna/Docusate Sodium 1 Tablet PO Not Given BID [facility] Tamsulosin HCl 0.4 mg 12/28/24 10:00 12/28/24 09:03 Tamsulosin Hcl 0.4 Mg Capsule PO 0.4 mg DAILY CHASE Administration Tuberculin PPD 0.1 ml 01/04/25 10:00 Tuberculin,Purif.Prot.Deriv. 50 Tu/Ml Vial ID 01/04/25 10:01 X1 ONE Problem List Tobacco abuse (Acute) BPH (benign prostatic hyperplasia) (Acute) Lumbar spinal stenosis (Acute) Bernard's palsy (Acute) Essential (primary) hypertension (Acute) History of prostate cancer (Acute) Status post above-knee amputation of right lower extremity (Acute) Acute lower extremity ischemia (Acute) Debility (Acute) Vital Signs Temp Pulse Resp BP Pulse Ox O2 Del Method 97.8 F 85 18 111/70 95 Room Air 12/28/24 16:00 12/28/24 16:00 12/28/24 16:00 12/28/24 16:00 12/28/24 16:00 12/28/24 16:00 Oxygen Delivery Method Room Air Sodium 140 mmol/L (133-145) 12/28/24 05:03 Potassium 3.8 mmol/L (3.3-5.1) 12/28/24 05:03 Chloride 107 mmol/L (98-108) 12/28/24 05:03 Carbon Dioxide 22.4 mmol/L (21.0-32.0) 12/28/24 05:03 Anion Gap 11 (5-15) 12/28/24 05:03 BUN 13 mg/dL (4-19) 12/28/24 05:03 Creatinine 0.77 mg/dL (0.70-1.20) 12/28/24 05:03 Est GFR (MDRD) Non-Af 99 (>60) 12/28/24 05:03 BUN/Creatinine Ratio 17.1 RATIO (10-20) 12/28/24 05:03 Glucose 108 mg/dL (70-99) H 12/28/24 05:03 Assessment/Plan: 1. Pain: acetaminophen 1000 mg PO Q6H PRN pain (1-4), oxycodone 4 mg PO Q4H PRN pain (5-10), lidocaine 1 patch TD daily. Please continue to monitor pain levels, PRN medication usage (the patient has used 3 doses of oxycodone and 0 doses of acetaminophen so far this admission), LFTs (no recent LFTs documented), for respiratory depression, constipation, dizziness/drowsiness, syncope/ataxia/falls, and for tingling around lidocaine patch. 2. Bowel: senna/docusate 2 tablets PO BID, magnesium citrate 300 mL PO daily PRN constipation. Please continue to monitor for bowel movements (last was on 12/28/24), for constipation, diarrhea, and PRN medication usage (the patient has not required any PRN magnesium citrate so far this admission. 3. Muscle spasms: cyclobenzaprine 5 mg PO TID through 01/06/25. Please continue to monitor for muscle spasms, for drowsiness/dizziness, and for fatigue. 4. Hypertension: amlodipine 2.5 mg PO daily. Please continue to monitor blood pressures (recent range = 111-121/62-70 mmHg), and for lower extremity edema. 5. PAOD: aspirin 81 mg PO daily, clopidogrel 75 mg PO daily. Please continue to monitor for s/s of PAOD such as leg pain, chest pain, as well as for bleeding, hemoglobin levels (Hgb = 8.7 g/dL on 12/28/24), platelet counts (Plt = 606 K/mm3 on 12/28/24), and for GI distress with clopidogrel and aspirin administration. 6. Hyperlipidemia: atorvastatin 20 mg PO QHS. Please continue to monitor LFTs (no recent LFTs documented), and for lipid levels (no recent lipid levels documented), as well as for myalgias. Please consider obtaining LFTs and lipid levels if clinically indicated. 7. Neuropathic pain: gabapentin 600 mg PO TID. Please continue to monitor for neuropathic pain, renal function (serum creatinine = 0.77 ), for drowsiness/dizziness, for syncope/ataxia/falls, and for lower extremity edema. 8. BPH: tamsulosin 0.4 mg daily. Please continue to monitor for s/s of BPH, for s/s of orthostasis and for urinary retention. 9. Tobacco abuse: nicotine 7 mg patch transdermally daily. Please continue to monitor for nicotine cravings and for nightmares. 10. Skin irritation/tinea corporis: nystatin powder topically BID, bacitracin ointment topically TID. Please continue to monitor for skin irritation and for resolution of tinea corporis. 11. Insomnia: melatonin 10 mg PO QHS. Please continue to monitor for insomnia and for drowsiness. 12. Nutrition: multivitamin 1 tablet PO daily. Please continue to monitor for overall nutritional status. Assessment/Plan for indications treated with psychotropic medications: NA Medical chart and medication regimen reviewed. The following medication irregularities or issues were identified: NA Date Date of Note: 12/28/24 Documented by User: Dr. Subhash Avery MD 12/28/24 20:03 TCU RX Drug Regimen Review Provider Comments Provider responsibility Provider Comments to Recommendations by Pharmacy Agree
[2024-12-28] MEDS: MELATONIN 10 MG TABLET PO (21:05)
[2024-12-29] MEDS: BACITRACIN 15 GM Tube 1 APPLIC TOPICAL ×3 (05:44→20:35)
[2024-12-29] MEDS: Lidocaine 5% Patch 1 PATCH TOPICAL (08:24)
[2024-12-29] MEDS: Aspirin E.C. 81 MG Tablet PO (08:25)
[2024-12-29 08:42] VITALS: BP 125/64; PULSE 88; RESP 18; TEMP 36.6; O2SAT 94
--- NOTE | 2024-12-29 12:35 | CHAPLAIN ---
Type of Pastoral Visit _x__ Initial Visit ___ Follow-up Visit ___ On-call Visit ___ General Patient Visit ___ Spiritual Assessment ___ Family Conference ___ Bereavement ___ Rapid Response ___ Code Blue ___ Other (describe below) Pastoral Care Referral From _x__ Patient ___ Family ___ Nurse ___ Physician ___ Head Athletic Trainer ___ Vegetable Ii Farmworker ___ Other (describe below) Sacrament/Intervention _x__ Active listening ___ Anointing ___ Mosque ___ Bereavement ___ Communion _x__ Juany exploration ___ _x__ Life review _x__ Prayer ___ Reconciliation ___ Sacrament of Sick _x__ Supportive presence ___ Wedding ___ Other (describe below) Pastoral Comments patient reviews his health history of last few years beginning with prostate cancer, several surgeries, and this latest back surgery that resulted in blood clots and amputation of his leg; pt acknowledges the physical pain and the emotional shock and trauma of the last week plus; pt acknowledges wonderful care and support of his ; pt is given time to express himself and feelings, to speak of what might be helpful, and to receive presence and prayer for today; pt is to consider focusing on the day and not the terminal superintendent of how will I ever walk or function again?; pt used to attend [employer] but does not in recent years; pt is open to future support and visits
[2024-12-29 14:05] VITALS: PULSE 88; RESP 16
--- NOTE | 2024-12-29 14:19 | NURSING ---
UPDATED ON NEW ORDERS AND ASKED ABOUT VACCINES AND ANY FOLLOW UPS. STATED PT HAS NOT RECEIVED ANY VACCINES AND DOES NOT HAVE A FOLLOW UP WITH THE BACK SURGIN [place]. STATED THEY SEEN THE BEFORE COMING TO [facility]. PT AGREED TO RECEIVE THE PNEUMONIA VACCINE AND ORDER PLACED. ALSO ASKED IF STAFF COULD SEE IF PT COULD GET IN AND OUT OF CAR SO SHE COULD TAKE PT TO APPOINTMENT ON JAN.18. THIS NURSE STATED SHE WOULD LET THERAPY KNOW. RN AWARE
--- NOTE | 2024-12-29 17:24 | CASEMGMT ---
Social Work SW met with patient to complete initial assessment. Introduced self and role. Verified contacts. Patient confirmed code status as full code. SW offered to complete advance directives during stay. Pt to discuss with and notify this worker. SW educated to Medicare benefit and not having a secondary insurance on file. Pt to discuss with . SW educated to day 21 start of copays, if not, which is 8/2. pt's goal is to return home with . SW will continue to follow for DC planning and support. Kia Rocha CASH PROCESSING SPECIALIST RESEARCH ENVIRONMENTAL ENGINEER
[2024-12-29 17:31] VITALS: BMI 23.6
[2024-12-29] MEDS: MELATONIN 10 MG TABLET PO (20:35)
[2024-12-30 05:45] LABS: Hematocrit 28.9 % (40-54); Hemoglobin 9.2 g/dL (13.0-16.5)
[2024-12-30] MEDS: BACITRACIN 15 GM Tube 1 APPLIC TOPICAL ×3 (05:47→19:46)
[2024-12-30 09:00] VITALS: BP 122/67; PULSE 97; RESP 16; TEMP 37; O2SAT 96
[2024-12-30] MEDS: Aspirin E.C. 81 MG Tablet PO (09:32)
[2024-12-30] MEDS: Lidocaine 5% Patch 1 PATCH TOPICAL (09:33)
--- NOTE | 2024-12-30 14:57 | NURSING ---
Called Dr. Castro's office and spoke with the nurse and she states patient is okay to shower, but cannot soak or scrub incision. Patient made aware.
--- NOTE | 2024-12-30 15:07 | CASEMGMT ---
Social Work IDT met with patient and for care plan meeting. Discussed patient's progress in PT/OT/SN/RDN. Educated to Medicare benefit and no secondary insurance on file. Verified with . provided copies of insurance cards - [facility] Medicare Supplement. SW sent to registration to verify. Provided pt/family with written communication of insurance process and copay coverage during stay. Pt has Dr kaur/fei appt on 01/18, and encouraged pt to plan to remain until after that appt to ensure healing and ongoing therapy. Pt is progressing well and could DC prior to that appt. SW to coordinate DME and HHC needs at DC. Answered and pt's questions. confirmed stair lift is being installed tomorrow. SW will continue to follow for DC planning and support. Kia Rocha NEWSPAPER JOURNALIST MEDIA RELATIONS SPECIALIST
[2024-12-30] MEDS: MELATONIN 10 MG TABLET PO (19:47)
[2024-12-31] MEDS: BACITRACIN 15 GM Tube 1 APPLIC TOPICAL ×3 (05:00→21:44)
--- NOTE | 2024-12-31 08:47 | MDS.RN ---
Pain assessment for MDS complete.
[2024-12-31] MEDS: Lidocaine 5% Patch 1 PATCH TOPICAL (09:05)
[2024-12-31] MEDS: Aspirin E.C. 81 MG Tablet PO (09:05)
[2024-12-31 09:42] VITALS: BP 120/67; PULSE 90; RESP 16; TEMP 36.4; O2SAT 94
[2024-12-31] MEDS: MELATONIN 10 MG TABLET PO (21:42)
[2025-01-01 05:54] LABS: Hematocrit 29.0 % (40-54); Hemoglobin 9.1 g/dL (13.0-16.5)
[2025-01-01] MEDS: Aspirin E.C. 81 MG Tablet PO (08:57)
[2025-01-01] MEDS: Lidocaine 5% Patch 1 PATCH TOPICAL (09:18)
--- NOTE | 2025-01-01 13:51 | CASEMGMT ---
Social Work SW completed BIMS () and PHQ-2 () for MDS assessment. alecia nolasco APPEALS NURSE CREATIVE SERVICES SPECIALIST
[2025-01-01 15:11] VITALS: BP 117/64; PULSE 104; RESP 16; TEMP 37.7; O2SAT 93
[2025-01-01] MEDS: MELATONIN 10 MG TABLET PO (21:47)
[2025-01-02] MEDS: Aspirin E.C. 81 MG Tablet PO (09:41)
[2025-01-02 09:53] VITALS: BP 122/55; PULSE 94; RESP 16; TEMP 36.8; O2SAT 92
[2025-01-02 18:00] VITALS: PULSE 94; RESP 16; O2SAT 92
[2025-01-02] MEDS: MELATONIN 10 MG TABLET PO (21:58)
[2025-01-03 05:05] LABS: Hematocrit 29.1 % (40-54); Hemoglobin 9.3 g/dL (13.0-16.5)
[2025-01-03 05:57] VITALS: PULSE 87; RESP 16; O2SAT 93
[2025-01-03] MEDS: Aspirin E.C. 81 MG Tablet PO (10:22)
[2025-01-03 10:27] VITALS: BP 118/69; PULSE 91; RESP 14; TEMP 36.6; O2SAT 95
--- NOTE | 2025-01-03 14:33 | NURSING ---
THIS NURSE AND AID IN ROOM,CHANGED BED LINENS,WASHED PT BOTTOM FROM INCONTINENCE APPLIED ZULLY AND POWDER TO AREAS,NEW BRIEF. PT REFUSED MOUTH CARE. GAVE PT WARM WASH CLOTH FOR FACE AND HANDS. THIS NURSE REMOVED ANGEL TO RT GROIN PER ORDER, AREA OF CONCERN APPLIED A FEW STERI STRIPS . RT GROIN AREA RED. PT TOLERATED WELL. UPDATED .
[2025-01-03] MEDS: MELATONIN 10 MG TABLET PO (21:16)
[2025-01-04 05:49] LABS: Hematocrit 29.9 % (40-54); Hemoglobin 9.5 g/dL (13.0-16.5); Immature Granulocytes Count 0.030 X10^3/uL (0.0-0.0); Mean Corp Hgb Conc 31.8 g/dL (32-36); Mean Corpuscular Volume 89.8 fL (80-94); Mean Platelet Vol. 9.7 fl (6.2-12.0); NRBC Flagged by Analyzer 0 % (0-5); Platelet Count 446 K/mm3 (150-450); RBC Distribution Width CV 15.4 % (11.6-14.6); RBC Distribution Width SD 50.5 fl (35.1-43.9); Red Blood Count 3.33 M/mm3 (4.6-6.2); White Blood Count 8.9 K/mm3 (4.4-11.0)
[2025-01-04 06:16] LABS: Anion Gap 12 (5-15); BUN 12 mg/dL (4-19); BUN/Creat Ratio 17.7 RATIO (10-20); Calcium,Total 8.9 mg/dL (7.6-11.0); Carbon Dioxide 22.8 mmol/L (21.0-32.0); Chloride 103 mmol/L (98-108); Estimated Creatinine Clearance 95.05 ml/min (50-250); Glucose 110 mg/dL (70-99); Potassium 3.6 mmol/L (3.3-5.1)
--- NOTE | 2025-01-04 08:51 | NURSING ---
cutter machine tender Note; MDS for 01/03/2025 Complete
[2025-01-04] MEDS: Aspirin E.C. 81 MG Tablet PO (09:19)
[2025-01-04 11:01] VITALS: BP 116/67; PULSE 86; RESP 18; TEMP 36.9; O2SAT 96
[2025-01-04] MEDS: Tuberculin,Purif.prot.deriv. 50 TU/ML Vial 0.1 ML ID (13:59)
[2025-01-04] MEDS: MELATONIN 10 MG TABLET PO (21:51)
[2025-01-04 22:00] VITALS: PULSE 92; RESP 16; O2SAT 95
[2025-01-05 06:21] LABS: Hematocrit 30.6 % (40-54); Hemoglobin 9.8 g/dL (13.0-16.5)
[2025-01-05] MEDS: Aspirin E.C. 81 MG Tablet PO (09:52)
[2025-01-05 09:56] VITALS: BP 114/68; PULSE 81; RESP 16; TEMP 36.6; O2SAT 96
[2025-01-05 12:45] VITALS: PULSE 93; RESP 16; O2SAT 95
--- NOTE | 2025-01-05 13:05 | MDS.RN ---
Information for the MDS was obtained from review of the clinical record, interview of resident, staff, and direct observation of resident?s care.
[2025-01-05 14:16] VITALS: BMI 23.0
--- NOTE | 2025-01-05 15:23 | WOUNDNOTE ---
wound photo: sacrum
--- NOTE | 2025-01-05 16:37 | NURSING ---
PER MARJAN,SIGNAL WIRER TEACH WOUND CARE TO PT . PT DECLINED STATED SHE WAS A NURSE AND ALSO TALKED TO THE WOUND NURSE TODAY.
--- NOTE | 2025-01-05 16:52 | NURSING ---
EARL BERMEO WOUND NURSE CHANGED PT DRESSING TO COCCYX.
[2025-01-05] MEDS: MELATONIN 10 MG TABLET PO (19:55)
[2025-01-06 08:53] VITALS: BP 104/58; PULSE 87; RESP 18; TEMP 35.9; O2SAT 95
[2025-01-06] MEDS: Aspirin E.C. 81 MG Tablet PO (08:56)
--- NOTE | 2025-01-06 12:04 | NURSING ---
OFFERED TO GIVE R' PREVNAR 20. R' WANTS TO WAIT UNTIL TOMORROW SO HE CAN TALK TO HIS ABOUT IT.
[2025-01-06 20:00] VITALS: PULSE 89; RESP 16; O2SAT 97
[2025-01-06] MEDS: MELATONIN 10 MG TABLET PO (20:30)
[2025-01-07 05:44] VITALS: PULSE 85; RESP 16; O2SAT 99
[2025-01-07 09:18] VITALS: BP 106/59; PULSE 84; RESP 16; TEMP 36.5; O2SAT 95
[2025-01-07] MEDS: Aspirin E.C. 81 MG Tablet PO (09:20)
[2025-01-07] MEDS: MELATONIN 10 MG TABLET PO (22:20)
--- NOTE | 2025-01-08 08:20 | RAD_ITS ---
EXAM: XR Abdomen, 1 View CLINICAL INDICATION: CONSTIPATION. TECHNIQUE: Frontal supine view of the abdomen/pelvis. COMPARISON: No relevant prior studies available. FINDINGS: GASTROINTESTINAL TRACT: Fecal retention in the colon consistent with constipation. No dilation. BONES/JOINTS: Posterior fusion of the lower lumbar spine. No acute fracture. RAD/Abdomen Single View IMPRESSION: Fecal retention in the colon consistent with constipation. Reading Location: [facility]
[2025-01-08] MEDS: Aspirin E.C. 81 MG Tablet PO (09:45)
[2025-01-08] MEDS: Senna/Docusate Sodium 1 Tablet 2 TABLET PO (09:49)
[2025-01-08 09:52] VITALS: BP 112/67; PULSE 89; RESP 16; TEMP 37; O2SAT 94
[2025-01-08] MEDS: Magnesium Citrate 300 ML PO (11:06)
--- NOTE | 2025-01-08 13:21 | NURSING ---
PT FEELING DOWN AND DEPRESSED AND THEN AGITATED TODAY. STATES HE WANTS TO GO HOME AND NOT HERE. A LITTLE 1 ON 1 WITH PT AND THEN CAME. TALKED TO AND DID SAY HE WAS DEPRESSED TODAY. NO MENTIONING OR SIGNS OF SUICIDAL INTENTIONS FROM PT. RN AWARE
[2025-01-08 13:30] VITALS: PULSE 91; RESP 16; O2SAT 96
--- NOTE | 2025-01-08 16:35 | NURSING ---
MAG CITRATE GIVEN WITH POSITIVE RESULTS.
[2025-01-08] MEDS: Pneumococcal Vaccine 20 Valent 0.5 ML Syringe IM (16:57)
--- NOTE | 2025-01-08 17:02 | NURSING ---
PREVNAR 20 GIVEN IN THE LT DELT. PT TOLERATED WELL. WILL CONTINUE TO MONITOR.
[2025-01-08] MEDS: MELATONIN 10 MG TABLET PO (22:16)
[2025-01-09 07:05] VITALS: PULSE 91; RESP 16; O2SAT 90
[2025-01-09] MEDS: Aspirin E.C. 81 MG Tablet PO (10:51)
[2025-01-09 16:00] VITALS: BP 122/61; PULSE 97; RESP 16; TEMP 36.6; O2SAT 95
[2025-01-09] MEDS: MELATONIN 10 MG TABLET PO (20:20)
[2025-01-10] MEDS: Aspirin E.C. 81 MG Tablet PO (09:52)
[2025-01-10 16:00] VITALS: BP 116/63; PULSE 98; RESP 16; TEMP 36.5; O2SAT 96
[2025-01-10] MEDS: MELATONIN 10 MG TABLET PO (21:50)
[2025-01-10] MEDS: Senna/Docusate Sodium 1 Tablet 2 TABLET PO (21:52)
[2025-01-11 05:15] LABS: Hematocrit 32.9 % (40-54); Hemoglobin 10.1 g/dL (13.0-16.5); Immature Granulocytes Count 0.040 X10^3/uL (0.0-0.0); Mean Corp Hgb Conc 30.7 g/dL (32-36); Mean Corpuscular Volume 90.9 fL (80-94); Mean Platelet Vol. 9.4 fl (6.2-12.0); NRBC Flagged by Analyzer 0 % (0-5); Platelet Count 443 K/mm3 (150-450); RBC Distribution Width CV 15.4 % (11.6-14.6); RBC Distribution Width SD 51.2 fl (35.1-43.9); Red Blood Count 3.62 M/mm3 (4.6-6.2); White Blood Count 8.5 K/mm3 (4.4-11.0)
[2025-01-11 05:41] LABS: Anion Gap 11 (5-15); BUN 13 mg/dL (4-19); BUN/Creat Ratio 18.3 RATIO (10-20); Calcium,Total 9.0 mg/dL (7.6-11.0); Carbon Dioxide 27.0 mmol/L (21.0-32.0); Chloride 102 mmol/L (98-108); Estimated Creatinine Clearance 94.76 ml/min (50-250); Glucose 117 mg/dL (70-99); Potassium 4.3 mmol/L (3.3-5.1)
[2025-01-11] MEDS: Aspirin E.C. 81 MG Tablet PO (09:56)
[2025-01-11 10:40] VITALS: PULSE 87; RESP 16; O2SAT 96
--- NOTE | 2025-01-11 10:51 | NURSING ---
THIS NURSE DOING PT ASSESSMENT AND FOUND PT HAD A LARGE INCONSTANCE. ASKED PT IF WE COULD CHANGE AND CLEAN HIM UP. PT STATED I WILL WAIT FOR MY . EDUCATED PT OF SKIN BREAK DOWN ETC IF NOT KEPT DRY AND CLEANED. PT GOT A LITTLE AGITATED AND STATED OK FINE. PT CHANGED AND CLEANED WITH PT HELP. RN AWARE
[2025-01-11 11:28] VITALS: BP 116/66; PULSE 87; RESP 18; TEMP 37; O2SAT 95
--- NOTE | 2025-01-11 14:22 | WOUNDNOTE ---
wound photo: sacrum
--- NOTE | 2025-01-11 14:29 | CASEMGMT ---
Social Work SW presented to pt's room, per his request, with at bedside. Pt requesting to DC home and before his f/u appt on 01/18. IDT agreeable. SW offered to DC 01/14, giving a 3-day notice. Pt/ agreeable. SW reviewed needed DME: drop arm BSC, drop arm 18 in w/c, slideboard, and skilled HHC. SW provided list of skilled HHC agencies within geographical area, INN with insurance, that include quality and resource data via [employer] guide. /pt to review and notify this worker of preferences. SW educated HHC agency will contact pt for SOC date date, but typically 2-3 days after DC, pending PCP signing orders. to transport pt home. - SW sent referral to [facility] via [employer]. Plan: DC home with 01/14, HHC PT/OT/SN, slideboard, drop arm BSC, drop arm 18 in w/c. Kia Rocha MSW BUYING INTERN
--- NOTE | 2025-01-11 18:40 | DS.PCM_ITS ---
Providers Date of Admission: 12/27/24 Primary Care Physician: JV Rodriguez Consultations 12/27/24 17:41 Consult: Onc/Wound/tin recovery worker Routine Comment: Reason for Consult:: unstageable to sacrum Reason For Visit: ABOVE R KNEE AMPUTATION Diagnosis Discharge Diagnosis (1) Debility: Status: Acute Code(s): R53.81 - Other malaise (2) Acute lower extremity ischemia: Status: Acute Code(s): I99.8 - Other disorder of circulatory system (3) Status post above-knee amputation of right lower extremity: Status: Acute Code(s): Z89.611 - Acquired absence of right leg above knee (4) History of prostate cancer: Status: Acute Code(s): Z85.46 - Personal history of malignant neoplasm of prostate (5) Essential (primary) hypertension: Status: Acute Code(s): I10 - Essential (primary) hypertension (6) Bernard's palsy: Status: Acute Code(s): G51.0 - Bernard's palsy (7) Lumbar spinal stenosis: Status: Acute Code(s): M48.061 - Spinal stenosis, lumbar region without neurogenic claudication (8) BPH (benign prostatic hyperplasia): Status: Acute Code(s): N40.0 - Benign prostatic hyperplasia without lower urinary tract symptoms (9) Tobacco abuse: Status: Acute Code(s): Z72.0 - Tobacco use Plan 64 year old male with below past medical history hospitalized for acute right lower extremity ischemia, underwent multiple unsuccessful revascularizations, resulted in right above knee amputation, admitted to TCU with debility, here for rehabilitation, strengthening, prior to discharge home with . * Debility - PT/OT. * Pain - Tylenol 1000mg q6 prn pain (1-4), Oxycodone 4mg q4 prn pain (5-10), Lidoderm 1 patch td daily. * Bowel - senna/colace 2 tablets bid, Magnesium citrate 300mL daily prn. * Adult immunization - Administer pneumonia vaccine, covid vaccine, flu vaccine as appropriate. * DVT prophylaxis - on DAPT. * Muscle spasm - Flexeril 5mg tid thru 01/06/2025. * Hypertension - Amlodipine 2.5mg daily. * PAOD - Aspirin 81mg daily, Plavix 75mg daily. * Hyperlipidemia - Atorvastatin 20mg qhs. * Skin irritation - Bacitracin ointment topical tid. * Neuropathic pain - Gabapentin 600mg tid. * Nutrition - MVI 1 tablet daily. * Tobacco abuse - Nicotine patch 7mg td daily. * Tinea Corporis - Nystatin powder topical bid. * BPH - Tamsulosin 0.4mg daily. * Insomnia - Add Melatonin 10mg qhs. Medications at Discharge Home Medications aspirin 81 mg tablet 81 mg PO DAILY heart health 12/27/24 multivitamin 1 tab PO DAILY supplement 12/27/24 amlodipine 2.5 mg tablet 2.5 mg PO DAILY 30 days #30 tabs 01/11/25 atorvastatin 20 mg tablet 20 mg PO QHS 30 days #30 tabs 01/11/25 clopidogrel 75 mg tablet 75 mg PO DAILY 30 days #30 tabs 01/11/25 gabapentin 300 mg capsule 600 mg (2 x 300 mg) PO TID 30 days #180 caps 01/11/25 mirtazapine 15 mg tablet 7.5 mg (1/2 x 15 mg) PO QHS 30 days #15 tabs 01/11/25 oxycodone 5 mg tablet 5 mg PO Q4H PRN pain (scale score 4-10) 7 days #42 tabs 01/11/25 sennosides 8.6 mg-docusate sodium 50 mg tablet (Stimulant Laxative Plus) 2 tab PO BID 30 days #120 tabs 01/11/25 tamsulosin 0.4 mg capsule 0.4 mg PO DAILY 30 days #30 caps 01/11/25 Hospital Course Operations - (Right AKA.) Procedures - (Multiple right lower extremity revascularization procedures.) Summary of Care Provided Minutes Spent on Discharge: 35 Hospital Course: 64 year old male with below past medical history hospitalized for acute right lower extremity ischemia, underwent multiple unsuccessful revascularizations, resulted in right above knee amputation, admitted to TCU with debility, here for rehabilitation, strengthening, prior to discharge home with . Discharge home with 01/14/2025, [facility] PT/OT/SN, Slideboard, drop arm BSC, drop arm 18 inch w/c. Slideboard: Patient is a w/c user that cannot independently transfer and requires a slideboard to transfer from their w/c, bed, or BSC. Drop arm BSC: Patient is confined to a single room unable to safely access toilet. Patient is confined to one level of the home environment and there is no toilet on that level. Drop arm 18 inch W/C: Patient has a mobility limitation that cannot be sufficiently resolved by using a cane or walker. Use of a w/c will improve the participating of ADLs on a regular basis in the home. Patient can independently self-propel. Physical Exam Const alert General Appearance: cooperative HEENT normocephalic Eyes PERRL and EOMs intact bilaterally Neck supple, no JVD and no carotid bruits Resp normal respiratory effort, normal air movement and clear to auscultation bilaterally Cardio regular rate and regular rhythm GI normal to inspection, nondistended, normoactive bowel sounds, non-tender and non-distended Extremity normal capillary refill Extremity Narrative: Right AKA. General Extremity: Negative for edema Skin no rashes or lesions noted General Skin Exam: no breakdown Psych affect normal Appearance: appropriate Weight / BMI Weight Weight: 72.773 kg Body Mass Index (BMI) 23.0 ABG / Lab / Microbiology Data 01/11/25 04:59 01/11/25 04:59 Laboratory: Laboratory Results - last 24 hr 01/11/25 04:59: WBC 8.5, RBC 3.62 L, Hgb 10.1 L, Hct 32.9 L, MCV 90.9, MCH 27.9, MCHC 30.7 L, RDW Std Deviation 51.2 H, RDW Coeff of Kate 15.4 H, Plt Count 443, MPV 9.4, Immature Gran % (Auto) 0.500, Neut % (Auto) 66.7, Lymph % (Auto) 19.2, Hartley % (Auto) 9.2, Eos % (Auto) 3.2, Baso % (Auto) 1.2 H, Absolute Neuts (auto) 5.7, Absolute Lymphs (auto) 1.63, Nucleated RBC % 0, Sodium 140, Potassium 4.3, Chloride 102, Carbon Dioxide 27.0, Anion Gap 11, BUN 13, Creatinine 0.72, Estim Creat Clear Calc 94.76, Est GFR (MDRD) Non-Af 102, BUN/Creatinine Ratio 18.3, G lucose 117 H, Calcium 9.0 D/C Instructions Discharge Activity: Return to Normal Activity Weight Bearing Status: Weight bearing as tolerated (Left lower extremity.) Call your doctor if you observe: Fever of 101 or Higher, Inability to urinate, Inability to have a bowel movement, Shortness of breath, Dizziness, Fainting spells, Swelling in the ankles, Chest pain and Uncontrolled pain DC O2, CPAP, BIPAP Needs Home O2 Discharge instructions: No Additional Instructions: Discharge home with 01/14/2025, [facility] PT/OT/SN, Slideboard, drop arm BSC, drop arm 18 inch w/c. Slideboard: Patient is a w/c user that cannot independently transfer and requires a slideboard to transfer from their w/c, bed, or BSC. Drop arm BSC: Patient is confined to a single room unable to safely access toilet. Patient is confined to one level of the home environment and there is no toilet on that level. Drop arm 18 inch W/C: Patient has a mobility limitation that cannot be sufficiently resolved by using a cane or walker. Use of a w/c will improve the participating of ADLs on a regular basis in the home. Patient can independently self-propel. Please Follow Up With: Itz Castro MD When: As scheduled. Meaningful Use Info Meaningful Use Meaningful Use Diagnoses (Choose all that apply): None applicable Discharge Plan Admission Admit Date/Time: 12/27/24 16:42 Primary Reason for Your Visit: Debility. Attending Provider: Subhash Avery Chi Primary Care Provider: Je Barraza Instructions Additional Instructions / Restrictions: Discharge home with 01/14/2025, [facility] PT/OT/SN, Slideboard, drop arm BSC, drop arm 18 inch w/c. Slideboard: Patient is a w/c user that cannot independently transfer and requires a slideboard to transfer from their w/c, bed, or BSC. Drop arm BSC: Patient is confined to a single room unable to safely access toilet. Patient is confined to one level of the home environment and there is no toilet on that level. Drop arm 18 inch W/C: Patient has a mobility limitation that cannot be sufficiently resolved by using a cane or walker. Use of a w/c will improve the participating of ADLs on a regular basis in the home. Patient can independently self-propel. Discharge Orders/Prescriptions Prescriptions: New atorvastatin 20 mg Tablet 20 mg PO QHS 30 Days Qty: 30 0RF sennosides-docusate sodium [Stimulant Laxative Plus] 8.6-50 mg Tablet 2 tab PO BID 30 Days Qty: 120 0RF amlodipine 2.5 mg Tablet 2.5 mg PO DAILY 30 Days Qty: 30 0RF clopidogrel 75 mg Tablet 75 mg PO DAILY 30 Days Qty: 30 0RF tamsulosin 0.4 mg Capsule 0.4 mg PO DAILY 30 Days Qty: 30 0RF gabapentin 300 mg Capsule 600 mg PO TID 30 Days Qty: 180 0RF mirtazapine 15 mg Tablet 7.5 mg PO QHS 30 Days Qty: 15 0RF oxycodone 5 mg Tablet 5 mg PO Q4H PRN (Reason: pain (scale score 4-10)) 7 Days Qty: 42 0RF Continued aspirin 81 mg tablet 81 mg PO DAILY multivitamin Tablet 1 tab PO DAILY Discontinued acetaminophen 325 mg tablet 650 mg PO Q6H PRN (Reason: pain (scale score 1-4)) amlodipine 2.5 mg tablet 2.5 mg PO DAILY atorvastatin [Lipitor] 20 mg tablet 20 mg PO QHS bacitracin 500 unit/gram ointment 1 applic topical TID clopidogrel 75 mg tablet 75 mg PO DAILY gabapentin 300 mg capsule 600 mg PO TID lidocaine 4 % adhesive patch,medicated 1 patch topical DAILY nicotine 7 mg/24 hr patch 24 hour 1 patch transdermal DAILY oxycodone 5 mg tablet 5 mg PO Q4H PRN (Reason: pain (scale score 4-6)) sennosides [senna] 8.6 mg tablet 8.6 mg PO QHS tamsulosin 0.4 mg capsule 0.4 mg PO DAILY cyclobenzaprine 5 mg tablet 5 mg PO TID Referrals / Follow Up: Je Barraza PA [Primary Care Provider] - Disposition Disposition (needs filled in before D/C Order can be placed): Home Health Service
[2025-01-11] MEDS: MELATONIN 10 MG TABLET PO (21:32)
[2025-01-12] MEDS: Aspirin E.C. 81 MG Tablet PO (09:50)
[2025-01-12] MEDS: Senna/Docusate Sodium 1 Tablet 2 TABLET PO ×2 (09:52→21:43)
[2025-01-12 09:58] VITALS: BP 124/71; PULSE 80; RESP 16; TEMP 36.4; O2SAT 99
--- NOTE | 2025-01-12 11:21 | CASEMGMT ---
Addendum entered by Kia Rocha 01/12/25 13:49: [place] [facility] can accept. Will contact for SOC. Original Note: Social Work SW completed advance directives with patient. Original and copy provided to pt; copy placed on chart. Pt provided SW with [facility] choices: 1. [facility], 2. [facility]. SW completed BIMS () and PHQ-2 () for MDS assessment. - SW sent referrals to [facility] agencies [facility]. Kia Rocha RESEARCH CHIEF ENGINEER HEAT CURER
[2025-01-12 13:52] VITALS: BMI 22.5
[2025-01-12 14:00] VITALS: PULSE 80; RESP 16; O2SAT 99
[2025-01-12] MEDS: MELATONIN 10 MG TABLET PO (21:42)
[2025-01-13] MEDS: Aspirin E.C. 81 MG Tablet PO (10:08)
[2025-01-13 16:00] VITALS: BP 118/66; PULSE 82; RESP 16; TEMP 36.4; O2SAT 98
[2025-01-13] MEDS: MELATONIN 10 MG TABLET PO (21:04)
[2025-01-14 06:46] VITALS: PULSE 81; RESP 18; O2SAT 92
[2025-01-14 10:17] VITALS: BP 118/75; PULSE 84; RESP 16; TEMP 36.4
[2025-01-14] MEDS: Aspirin E.C. 81 MG Tablet PO (10:18)
== END 2025-01-14 11:15 | disposition home health service (06) | DRG 561 ==
PROVIDERS: Admitting Provider Family Medicine Geriatric Medicine; PCP Physician Assistant; Visit Provider Family Medicine Geriatric Medicine
DX: Z47.81 Encounter for orthopedic aftercare following surgical amputation (principal); L89.150 Pressure ulcer of sacral region, unstageable; F32.A Depression, unspecified; F17.210 Nicotine dependence, cigarettes, uncomplicated; E78.5 Hyperlipidemia, unspecified; B35.4 Tinea corporis; Z89.611 Acquired absence of right leg above knee; I10 Essential (primary) hypertension; I73.9 Peripheral vascular disease, unspecified; M48.061 Spinal stenosis, lumbar region without neurogenic claudication; G51.0 Bell's palsy; G62.9 Polyneuropathy, unspecified; G47.00 Insomnia, unspecified; Z79.899 Other long term (current) drug therapy; N40.0 Benign prostatic hyperplasia without lower urinary tract symptoms; Z79.82 Long term (current) use of aspirin; Z79.02 Long term (current) use of antithrombotics/antiplatelets; Z23 Encounter for immunization
CPT/HCPCS: 36415; 74018; 80048; 85014; 85018; 85025; 90677; 97110; 97116; 97162; 97166; 97530; 97535; 97802; 99406